=== PATIENT | male | born 1950 | race Caucasian/White ===

== ENCOUNTER → 2017-07-25 06:11 | Outpatient (CLI) | payer MEDICARE, SELFPAY ==
--- NOTE | 2017-07-25 06:14 | CA_ITS ---
PROCEDURE: 2-D M-mode and color Doppler study INDICATIONS FOR THE TEST: Chest pain + COPD Heart Murmur Tobacco Smoking Palpitations Fatigue+ Syncope Edema Hypertension+Diabetes Mellitus Rheumatic Fever SOB+BRYAN Obesity Hyperlipidemia+ Family History HD Additional History PATIENT INFORMATION HEIGHT:69 WEIGHT:184 GENDER: Male B/P:166/93 2-D/M-MODE INTERPRETATION: 2-D MEASUREMENTS OBSERVED VALUES IN CMS Right Ventricular Dimension (RVDd) 3.0 Interventricular Septum (Thickness)(IVsd) 1.3 Left Ventricular Internal Dimensions(LVIDd) 4.7 Left Ventricular Posterior Wall (Thickness)(LVPWd) 1.0 Aortic Root 2.9 Aortic Cusp Separation 1.9 Left Atrial Dimensions (LAD) 4.1 2D 1. Left atrium is mildly enlarged, left ventricle is normal size, mild concentric left ventricular hypertrophy, visually estimated ejection fraction 55% with no obvious regional wall motion abnormality. 2. The right atrium and right ventricle are mildly enlarged with normal contractility. 3. The aortic valve is minimally thickened and fibrosed. 4. The mitral and tricuspid valve are grossly normal. 5. The pulmonic valve is poorly visualized. 6. No significant pericardial effusion noted. DOPPLER INTERROGATION: Doppler interrogation of the aortic, mitral and tricuspid valvular presence of mild mitral and tricuspid regurgitation, tricuspid regurgitant jet velocity insufficient for calculation of the right ventricular systolic pressure, diastolic parameters are inconclusive. CONCLUSION: 1. Mild biatrial enlargement, normal left ventricular size, mild concentric left ventricular hypertrophy, visually estimated ejection fraction 55% with no obvious regional wall motion abnormality. Diastolic parameters are inconclusive. 2. Mildly enlarged right ventricle with normal contractility. 3. Mild mitral and tricuspid regurgitation 4. No significant pericardial effusion noted.
== END ==
PROVIDERS: Family Provider Nurse Practitioner Family; PCP Family Medicine; Visit Provider Internal Medicine
DX: R07.9 Chest pain, unspecified (principal); R06.09 Other forms of dyspnea; I20.9 Angina pectoris, unspecified; E78.2 Mixed hyperlipidemia; I10 Essential (primary) hypertension; Z82.49 Family history of ischemic heart disease and other diseases of the circulatory system
CPT/HCPCS: 93306

== ENCOUNTER → 2017-07-26 06:00 | Outpatient (CLI) | payer MEDICARE, SELFPAY ==
--- NOTE | 2017-07-26 | NM_ITS ---
History and Indications: Hypertension, hyperlipidemia, family history, chest pain and fatigue Procedure: Patient exercised on Cristo protocol 9 minutes, resting heart rate was 63 bpm resting blood pressure 170/80, with heart rate achieved was 126 beats per week was 83% of the maximum predicted heart rate and a blood pressure was 191/80. Test was started due to chest discomfort. Patient has good exercise capacity achieved 10.1mets of workload on treadmill, the blood pressure response to exercise was adequate, patient did not achieve the target heart. Electrocardiogram: Resting electrocardiogram showed sinus bradycardia, with exercise less than 1.[address] segment depression noted from the baseline EKG. The EKG portion of the exercise Myoview is nondiagnostic. As patient did not achieve the target heart rate. Cardiac stress and resting SPECT images: Cardiac stress and resting SPECT images were obtained using technetium 99 Myoview 29.5 mCi at stress and 9.3 mCi at rest, gated SPECT further analysis of segmental wall motion and calculation of the ejection fraction also done. Cardiac stress and rest images show a mild fixed defect in the inferior wall with normal contractility gated SPECT is likely secondary to soft tissue attenuation, no reversible ischemia seen, computer derived ejection fraction 60% with no abnormality, right ventricle is normal size and contractility. Conclusion: 1. The EKG portion of the exercise Myoview is nondiagnostic, as patient did not achieve the target heart rate. Patient has good exercise capacity achieved 10.1mets of workload on treadmill, the blood pressure response to exercise was adequate, test was stopped due to chest pain. 2. No obvious scintigraphic evidence of reversible ischemia seen, computer derived ejection fraction is 62% with no obvious regional wall motion abnormality. Right ventricle is normal size and contractility.
--- NOTE | 2017-07-26 08:56 | HMH.ITSHM ---
ATORVASTATIN TAMSULOSIN ASA OMPREAZOLE AMLODIPINE BISOPROLOL
== END ==
PROVIDERS: Family Provider Nurse Practitioner Family; PCP Family Medicine; Visit Provider Internal Medicine
DX: R07.9 Chest pain, unspecified (principal); E78.5 Hyperlipidemia, unspecified; R00.0 Tachycardia, unspecified
CPT/HCPCS: 78452; 93017; A9502

== ENCOUNTER → 2017-08-17 07:02 | Outpatient (CLI) | payer MEDICARE, SELFPAY ==
[2017-08-17 10:18] LABS: Alanine Aminotransferase 22 U/L (12-78); Albumin Level 3.8 gm/dL (3.4-5.0); Alkaline Phosphatase 96 U/L (46-116); Aspartate Amino Transferase 16 U/L (15-37); Bilirubin,Direct 0.1 mg/dL (0.0-0.2); Bilirubin,Indirect 0.5 mg/dL (0.0-0.9); Bilirubin,Total 0.6 mg/dL (0.2-1.0); Chol/HDL Ratio 3.2 (1-3.5); Cholesterol 161 mg/dL (140-200); HDL Cholesterol 51 mg/dL (27-67); LDL Cholesterol 100 mg/dL (0-130); Total Protein,Serum 7.1 gm/dL (6.4-8.2); Triglycerides 49 mg/dL (30-200); VLDL Cholesterol 10 mg/dL (0-40)
== END ==
PROVIDERS: Visit Provider Internal Medicine
DX: I25.10 Atherosclerotic heart disease of native coronary artery without angina pectoris (principal); E78.2 Mixed hyperlipidemia
CPT/HCPCS: 36415; 80061; 80076

== ENCOUNTER → 2017-10-26 07:11 | Outpatient (CLI) | payer MEDICARE, SELFPAY ==
[2017-10-26 09:05] LABS: Alanine Aminotransferase 22 U/L (12-78); Albumin Level 3.5 gm/dL (3.4-5.0); Alkaline Phosphatase 99 U/L (46-116); Aspartate Amino Transferase 11 U/L (15-37); Bilirubin,Direct 0.1 mg/dL (0.0-0.2); Bilirubin,Indirect 0.4 mg/dL (0.0-0.9); Bilirubin,Total 0.5 mg/dL (0.2-1.0); Chol/HDL Ratio 3.2 (1-3.5); Cholesterol 153 mg/dL (140-200); HDL Cholesterol 48 mg/dL (27-67); LDL Cholesterol 92 mg/dL (0-130); Total Protein,Serum 6.8 gm/dL (6.4-8.2); Triglycerides 65 mg/dL (30-200); VLDL Cholesterol 13 mg/dL (0-40)
== END ==
PROVIDERS: Visit Provider Physician Assistant
DX: E78.2 Mixed hyperlipidemia (principal)
CPT/HCPCS: 36415; 80061; 80076

== ENCOUNTER → 2018-02-18 07:20 | Outpatient (CLI) | payer MEDICARE, SELFPAY ==
[2018-02-18 08:19] LABS: Alanine Aminotransferase 41 U/L (12-78); Albumin Level 3.4 gm/dL (3.4-5.0); Alkaline Phosphatase 100 U/L (46-116); Aspartate Amino Transferase 21 U/L (15-37); Bilirubin,Direct 0.1 mg/dL (0.0-0.2); Bilirubin,Indirect 0.6 mg/dL (0.0-0.9); Bilirubin,Total 0.7 mg/dL (0.2-1.0); Cholesterol 159 mg/dL (140-200); HDL Cholesterol 53 mg/dL (27-67); LDL Cholesterol 92 mg/dL (0-130); Total Protein,Serum 6.8 gm/dL (6.4-8.2); Triglycerides 71 mg/dL (30-200); VLDL Cholesterol 14 mg/dL (0-40)
== END ==
PROVIDERS: Visit Provider Urology
DX: E78.2 Mixed hyperlipidemia (principal)
CPT/HCPCS: 36415; 80061; 80076

== ENCOUNTER → 2019-01-10 07:46 | Outpatient (CLI) | payer MEDICARE, SELFPAY ==
--- NOTE | 2019-01-10 07:49 | US_ITS ---
PROCEDURE: US LIVER CLINICAL INDICATION: ELEVATED LIVER ENZYMES COMPARISON: No exams were available for comparison FINDINGS: Pancreas: Unremarkable/Not well seen Liver: Unremarkable. There is appropriate direction of blood flow within a non dilated portal vein. Right kidney: The 3.5 x 3 cm right renal cyst. No hydronephrosis Gallbladder: No stones are evident. There is no gallbladder wall thickening. Common duct is normal in diameter. IMPRESSION: Unremarkable hepatic ultrasound. Right renal cyst Dictated by: Bernardo Banerjee MD 01/10/2019 18:59 Electronically signed by Bernardo Banerjee MD in [place] 01/10/2019 18:59
== END ==
PROVIDERS: PCP Family Medicine; Visit Provider Nurse Practitioner
DX: R74.8 Abnormal levels of other serum enzymes (principal)
CPT/HCPCS: 76705

== ENCOUNTER → 2020-01-13 08:16 | Outpatient (CLI) | payer MEDICARE, SELFPAY ==
--- NOTE | 2020-01-13 08:22 | US_ITS ---
PROCEDURE: US ABDOMEN LIMITED CLINICAL INDICATION: RENAL CYST COMPARISON: US US LIVER from 01/10/2019 FINDINGS: PANCREAS: Unremarkable. No obvious mass or abnormal fluid collection. No ductal dilatation LIVER: No focal liver lesions demonstrated. Homogeneous echogenicity. No intrahepatic biliary ductal dilatation evident. There is appropriate direction of blood flow within a non dilated portal vein RIGHT KIDNEY: There is a 3.7 x 2.7 cm right renal cyst containing a thin septation not significantly changed. GALLBLADDER: No gallstones, gallbladder wall thickening, pericholecystic fluid, or biliary dilatation. IMPRESSION: No significant change in the right renal cyst Otherwise negative right upper quadrant ultrasound Dictated by: Bernardo Banerjee MD 01/13/2020 10:22 Bernardo Banerjee MD in [place] 01/13/2020 10:22
== END ==
PROVIDERS: PCP Family Medicine; Visit Provider Nurse Practitioner
DX: N28.1 Cyst of kidney, acquired (principal)
CPT/HCPCS: 76705

== ENCOUNTER 2022-01-31 10:08 | Day surgery (SDC) | payer MEDICARE, SELFPAY ==
[2022-01-26 13:47] VITALS: BMI 25.4
[2022-01-31] VITALS (12 sets, daily range): BP systolic 105–160; BP diastolic 54–92; PULSE 53–74; RESP 14–16; TEMP 36.2–36.6; O2SAT 96–99
--- NOTE | 2022-01-31 10:51 | P.PN_ITS ---
[facility] Medical History Angina at rest History of chest pain Surgical History Hx of hemorrhoidectomy Family History Other Family history of myocardial infarction Social History Smoking Status: Never smoker alcohol intake: never substance use type: denies use current occupational status: retired Travel in the last 8 weeks: None housing: house caffeine: Yes [facility] Anesthesia Checklist Patient Identification Patient Identification: Arm Band Structural Data Admitted From: Home Planned Operative Procedure/s: colonoscopy Consent for Planned Operative Procedure(s) Verified: Yes Verified Documents: Surgical Consent and History and Physical NPO Status Verified Time NPO: 00:00 Additional verifications Anesthesia Reactions: No Airway Assessment C-Spine Mobility Assessed: Yes TMJ Mobility Assessed: Yes Dentition: Good Dentition Neurological Assessment Level of Consciousness: Awake and Alert Anesthesia Plan Anesthesia Risk discussed: Yes Anesthesia Plan: Verified ASA Class: II Anesthesia Type: MAC
--- NOTE | 2022-01-31 11:59 | XR_ITS ---
FINAL REPORT CLINICAL HISTORY: post op..abd pain FINDINGS: TWO-VIEW ABDOMEN There are multiple air-filled bowel loops in a nonspecific pattern, may represent an ileus. No abnormal calcification is identified. IMPRESSION: Findings may represent an ileus. Reviewed, Interpreted and Dictated by Richar Colmenares III, MD Transcribed by Charlotte Robledo Authenticated and [facility]
--- NOTE | 2022-01-31 12:13 | P.PCN_ITS ---
Procedure: Date: 01/31/22 Patient Date of :: 1950 Procedure Performed:: Colonoscopy with polypectomy Indications:: History of colon polyps Performing Provider:: Donald Viera MD Referring Provider:: . Sedation:: Monitored anesthesia care Procedure:: After informed consent was obtained the patient was taken to the endoscopy suite. Sedation ensued after the patient was transferred to the left lateral d ecubitus position. Pulse, blood pressure, and oxygen saturation were monitored throughout the procedure. Digital rectal exam revealed no significant abnormality. The colonoscope was placed in position. The entire colon was evaluated. The colonoscope was carefully removed and the patient was transferred to recovery in stable condition. Please see findings and specimens below for detail. Findings:: Hemorrhoidal tags Bowel preparation moderate to poor Severe lack of relaxation Pandiverticulosis Multiple complex polyps (see specimens) Specimens:: 9 mm sessile polyp and adjacent polyp along margin of the ileocecal valve (cold snare and cold biopsy forceps) Periappendiceal polyp (cold snare) Cluster of lobulated sessile polyps ranging from 5 mm to 9 mm throughout the proximal right colon (cold snare and cold biopsy forceps) Recommendations:: Timing of repeat colonoscopy is pending pathology but likely be between 3-6 months with extended bowel preparation secondary to limitations in visualization and size/nature/number of polyps. Consideration of consulting gastroenterology for his next colonoscopy will be discussed with the patient (secondary to possible need for evaluation for constipation and overall complex nature of his endoscopic evaluation). Complications:: No immediate Flat/upright films pending secondary to excision of multiple large complex polyps in the right colon Estimated blood obtained (mL): 1
== END 2022-01-31 14:05 | disposition home or self-care (01) ==
PROVIDERS: PCP Family Medicine; Visit Provider Surgery
PROC: 0DJD8ZZ Inspection of Lower Intestinal Tract, Via Natural or Artificial Opening Endoscopic (ICD-10-PCS; principal; 2022-01-31 11:30)
DX: Z12.11 Encounter for screening for malignant neoplasm of colon (principal); Z86.010 Personal history of colon polyps; K63.5 Polyp of colon; Z79.899 Other long term (current) drug therapy
CPT/HCPCS: 45380; 45385; 74019; 88305; J2704

== ENCOUNTER → 2022-04-10 10:23 | Outpatient (CLI) | payer MEDICARE, SELFPAY ==
[2022-04-10 10:34] LABS: Microscopic, Urine URINE MICROSCOPIC (MICROSCOPIC)
--- NOTE | 2022-04-10 10:44 | ECG_ITS ---
APPROVED REPORT Exam: Resting ECG HR:56 bpm ECG Measurements Heart Rate 56 AXES AL 192 P 51 QRSd 102 QRS 68 QT 423 T 51 QTc 415 Conclusion SINUS BRADYCARDIA BORDERLINE ECG UNCONFIRMED REPORT Electronically signed by : Vipul Durbin MD 04/10/2022 19:42:30
[2022-04-10 11:06] LABS: Appearance,Urine CLEAR (Clear); Bilirubin,Urine Negative (Negative); Blood, Urine Negative (Negative); Color,Urine YELLOW (Yellow); Glucose,Urine (UA) Negative (Negative); Ketones,Urine Negative (Negative); Leukocyte Esterase,Urine 1+ (Negative); Nitrate,Urine POSITIVE (Negative); PH,Urine 5.5 (5.0-8.5); Protein,Urine Negative (Negative); Specific Gravity, Urine >= 1.030 (1.005-1.030); Urobilinogen,Urine 0.2 EU/dl (0.2)
[2022-04-10 11:11] LABS: Bacteria,Urine 1+ /lpf; RBC,Urine Occasional #/hpf (0-3); Squamous Epithelial Cell,Urine Occasional #/hpf (0-5)
[2022-04-10 11:29] LABS: Basophils % 0.7 % (0.1-2.0); Eosinophils # 0.1 K/mm3 (0.0-0.4); Eosinophils % 1.6 % (0.1-12.0); Hematocrit 46.7 % (42.0-52.0); Hemoglobin 14.8 g/dL (14.1-18.0); Lymphocytes # 1.7 K/mm3 (0.7-4.5); Lymphocytes % 33.8 % (10-50); Mean Corpuscular HGB Conc 31.7 g/dL (31.8-35.4); Mean Corpuscular Hemoglobin 30.5 pg (27.0-31.2); Mean Corpuscular Volume 96.4 fl (80-94); Mean Platelet Volume 8.2 fl (7.4-10.4); Monocytes # 0.3 K/mm3 (0.1-1.0); Monocytes % 6.2 % (1.7-9.3); Neutrophils % 57.7 % (37.0-80.0); Platelet Count 178 K/mm3 (142-424); Red Blood Count 4.84 M/mm3 (4.60-6.20); Red Cell Distribution Width 14.1 % (11.5-17.5); White Blood Count 5.2 K/mm3 (4.8-10.8)
[2022-04-10 11:33] LABS: Chloride 106 mmol/L (98-107)
[2022-04-10 11:34] LABS: Potassium 4.4 mmoL/L (3.5-5.1)
[2022-04-10 11:36] LABS: Blood Urea Nitrogen 17 mg/dl (9-20); Estimated Glomerular Filt Rate 73 ml/min (>60); GFR (African American) 89 ML/MIN (>60)
[2022-04-10 11:37] LABS: Carbon Dioxide 27 mmol/L (22.0-30.0); Glucose 102 mg/dl (74-100)
[2022-04-10 12:31] LABS: Anion Gap 10.4 mEq/L (5-15); Sodium 139 mmol/L (136-145)
== END ==
PROVIDERS: PCP Family Medicine; Visit Provider Surgery
DX: K40.90 Unilateral inguinal hernia, without obstruction or gangrene, not specified as recurrent (principal); I10 Essential (primary) hypertension; Z01.818 Encounter for other preprocedural examination; R82.90 Unspecified abnormal findings in urine
CPT/HCPCS: 36415; 80048; 81001; 85025; 87086; 93005

== ENCOUNTER 2022-04-13 10:00 | Day surgery (SDC) | payer MEDICARE, SELFPAY ==
[2022-04-13] VITALS (10 sets, daily range): BP systolic 102–151; BP diastolic 39–89; PULSE 61–98; RESP 16–18; TEMP 36.1–43; O2SAT 93–98
--- NOTE | 2022-04-13 14:04 | P.PN_ITS ---
[facility] Disclaimer: The information contained in this section may have been updated after the patient was seen, as this information can be updated by other users. Medical History Angina at rest History of chest pain Surgical History History of colonoscopy Hx of hemorrhoidectomy Family History Other Family history of myocardial infarction Social History Smoking Status: Never smoker alcohol intake: never substance use type: denies use current occupational status: retired Travel in the last 8 weeks: None housing: house caffeine: Yes [facility] Anesthesia Checklist Patient Identification Patient Identification: Arm Band Structural Data Admitted From: Home Planned Operative Procedure/s: Right Open Inguinal Hernia Repair Consent for Planned Operative Procedure(s) Verified: Yes Verified Documents: Surgical Consent and History and Physical NPO Status Verified Time NPO: 00:00 Additional verifications Anesthesia Reactions: No Hx Blood Transfusions: No Blood Transfusion Reaction: No Airway Assessment C-Spine Mobility Assessed: Yes TMJ Mobility Assessed: Yes Dentition: Good Dentition Neurological Assessment Level of Consciousness: Awake and Alert Anesthesia Plan Anesthesia Risk discussed: Yes Anesthesia Plan: Verified ASA Class: II Anesthesia Type: General
--- NOTE | 2022-04-13 14:40 | EXP.OP.NOTE ---
Date of procedure: 04/13/22 Pre-op Diagnosis:: Right inguinal hernia Post-op Diagnosis:: Same Procedure performed:: Open right inguinal hernia repair Surgeon:: Donald Viear MD DRUG SAFETY COORDINATOR:: Aureliano Bahena Anesthesia: LMA Estimated blood loss (mL): 15 Operative findings:: Large complex indirect defect with significant incarcerated preperitoneal fat Operative note:: After informed consent was obtained the patient was taken to the operating room and placed in the supine position. General anesthesia with laryngeal mask airway was achieved. His lower abdomen and groin/scrotum were prepped and draped in a sterile fashion. After infiltration local anesthetic an oblique incision was made in the right groin. Electrocautery was utilized to transect through Allie's fascia to the level of the external aponeurosis. The external aponeurosis was sharply opened to the level of the external ring. The contents of the canal were carefully elevated. Significant incarcerated preperitoneal fat was noted. The preperitoneal fat/cord lipoma was transected free from surrounding tissue. The hernia sac was carefully elevated. The sac was opened distally to facilitate dissection. Once the hernia sac was freed from surrounding tissue the defect was reapproximated with running Vicryl suture. An extra-large PerFix plug was then secured in position with interrupted Ethibond. The PerFix overlay was then secured to the shelving edge inferiorly and the fascial margin superiorly with interrupted Ethibond. The external aponeurosis was reapproximated with running Vicryl suture. Allie's fascia was reapproximated in a similar manner. Skin was then closed with running 4-0 Monocryl. Dressings were applied and the patient was transferred to recovery in stable condition. Condition: stable Disposition: PACU Specimens:: none Complications:: No immediate
--- NOTE | 2022-04-13 14:47 | EXP.ANES.I ---
[facility] Anesthesia Record Part I Anesthesia Record I Intake, IV Amount: 1,200 Estimated blood loss (mL): 10 Urine output (mL): 150 Blood Products used (#): none Blood Pressure: 151/83 SaO2: 93 Pulse Rate: 95 Respiratory Rate: 16 Temperature: 99.2 F Patient is:: Drowsy and Stable Stable to PACU at:: 14:45
--- NOTE | 2022-04-13 19:01 | EXP.ANES.II ---
[facility] Anesthesia Record Part II Anesthesia Record Part II Discharge Time: 15:15 Destination: Surgical Day Care (OP Surgery) PACU nurse assessment reviewed?: Yes Patient Condition:: Good Anesthesia Complications:: None Swallowing reflex intact?: Yes Cyanosis?: No Blood Pressure: 125/77 Pulse Rate: 88 Temperature: 97.7 F Mental Status: Alert & Oriented Pain level:: 0 Nausea and/or vomitting:: None Intake, IV Amount: 0
== END 2022-04-13 16:15 | disposition home or self-care (01) ==
PROVIDERS: PCP Family Medicine; Visit Provider Surgery
DX: K40.30 Unilateral inguinal hernia, with obstruction, without gangrene, not specified as recurrent (principal); Z79.899 Other long term (current) drug therapy
CPT/HCPCS: 49507; 96374; J2405

== ENCOUNTER → 2022-11-14 10:14 | Outpatient (CLI) | payer MEDICARE, SELFPAY ==
[2022-11-14 11:13] LABS: Alanine Aminotransferase 111 U/L (12-78); Alkaline Phosphatase 101 U/L (38-126); Aspartate Amino Transferase 109 U/L (17-59); Bilirubin,Direct 0.3 mg/dl (0.0-0.4); Bilirubin,Indirect 0.5 mg/dL (0.0-0.9); Bilirubin,Total 0.8 mg/dl (0.2-1.3); Bilirubin,Unconjugated 0.5 mg/dL (0.0-1.1); Chol/HDL Ratio 4.9 (1-3.5); Cholesterol 188 mg/dl (140-200); HDL Cholesterol 38 mg/dl (40-60); Total Protein,Serum 8.6 g/dl (6.3-8.2); Triglycerides 139 mg/dl (30-150); VLDL Cholesterol 28 mg/dL (0-40)
[2022-11-14 11:25] LABS: Direct LDL Cholesterol 98.76 mg/dL (100-129)
== END ==
PROVIDERS: PCP Family Medicine; Visit Provider Nurse Practitioner
DX: E78.2 Mixed hyperlipidemia (principal); R74.01 Elevation of levels of liver transaminase levels
CPT/HCPCS: 36415; 80061; 80076

== ENCOUNTER → 2022-12-19 07:20 | Outpatient (CLI) | payer MEDICARE, SELFPAY ==
[2022-12-19 08:04] LABS: Alanine Aminotransferase 100 U/L (12-78); Bilirubin,Unconjugated 0.8 mg/dL (0.0-1.1)
[2022-12-19 08:05] LABS: Albumin Level 4.2 g/dl (3.5-5.0); Alkaline Phosphatase 83 U/L (38-126); Aspartate Amino Transferase 109 U/L (17-59); Bilirubin,Direct 0.4 mg/dl (0.0-0.4); Bilirubin,Indirect 0.8 mg/dL (0.0-0.9); Bilirubin,Total 1.2 mg/dl (0.2-1.3); Total Protein,Serum 8.9 g/dl (6.3-8.2)
== END ==
PROVIDERS: PCP Family Medicine; Visit Provider Nurse Practitioner
DX: R74.8 Abnormal levels of other serum enzymes (principal)
CPT/HCPCS: 36415; 80076

== ENCOUNTER → 2023-02-19 07:07 | Outpatient (CLI) | payer MEDICARE, SELFPAY ==
[2023-02-19 09:00] LABS: Chol/HDL Ratio 4.8 (1-3.5); Cholesterol 178 mg/dl (140-200); HDL Cholesterol 37 mg/dl (40-60); Triglycerides 93 mg/dl (30-150); VLDL Cholesterol 19 mg/dL (0-40)
[2023-02-19 09:11] LABS: Direct LDL Cholesterol 100.37 mg/dL (100-129)
[2023-02-19 09:28] LABS: Alanine Aminotransferase 118 U/L (12-78); Aspartate Amino Transferase 129 U/L (17-59); Bilirubin,Unconjugated 0.7 mg/dL (0.0-1.1)
[2023-02-19 09:29] LABS: Albumin Level 4.2 g/dl (3.5-5.0); Alkaline Phosphatase 93 U/L (38-126); Bilirubin,Direct 0.2 mg/dl (0.0-0.4); Bilirubin,Indirect 0.7 mg/dL (0.0-0.9); Bilirubin,Total 0.9 mg/dl (0.2-1.3); Total Protein,Serum 8.4 g/dl (6.3-8.2)
== END ==
PROVIDERS: Nurse Practitioner Family; PCP Family Medicine; Visit Provider Internal Medicine
DX: I10 Essential (primary) hypertension (principal); R74.8 Abnormal levels of other serum enzymes
CPT/HCPCS: 36415; 80061; 80076

== ENCOUNTER 2023-08-20 07:30 | Outpatient (CLI) | payer MEDICARE, SELFPAY ==
[2023-08-20 09:06] LABS: Alanine Aminotransferase 86 U/L (12-78); Albumin Level 4.1 g/dl (3.5-5.0); Alkaline Phosphatase 81 U/L (38-126); Aspartate Amino Transferase 90 U/L (17-59); Bilirubin,Indirect 0.7 mg/dL (0.0-0.9); Bilirubin,Total 0.7 mg/dl (0.2-1.3); Bilirubin,Unconjugated 0.7 mg/dL (0.0-1.1); Chol/HDL Ratio 4.4 (1-3.5); Cholesterol 181 mg/dl (140-200); HDL Cholesterol 41 mg/dl (40-60); Total Protein,Serum 8.6 g/dl (6.3-8.2); Triglycerides 113 mg/dl (30-150); VLDL Cholesterol 23 mg/dL (0-40)
[2023-08-20 09:17] LABS: Direct LDL Cholesterol 98.94 mg/dL (100-129)
== END 2023-08-20 23:59 | disposition home or self-care (01) ==
LOC: LAB 07:31
PROVIDERS: PCP Family Medicine; Visit Provider Nurse Practitioner Family
DX: I25.10 Atherosclerotic heart disease of native coronary artery without angina pectoris (principal); R74.8 Abnormal levels of other serum enzymes; E78.2 Mixed hyperlipidemia
CPT/HCPCS: 36415; 80061; 80076

== ENCOUNTER 2024-01-24 08:32 | Outpatient (CLI) | payer MEDICARE, SELFPAY ==
--- NOTE | 2024-01-24 08:35 | US_ITS ---
FINAL REPORT CLINICAL HISTORY: BORDERLINE CIRRHOSIS COMPARISON: None FINDINGS: Sonographic images of the right upper quadrant were obtained. The pancreas is partially obscured. There is a coarse hepatic echotexture consistent with cirrhosis. The gallbladder appears normal without evidence of gallstones.There is no evidence of biliary ductal dilatation.The common duct measures 4mm. The right kidney measures 8.3 cm. There is a septated cystic mass in the right kidney measuring 4.4 cm favored to represent a mildly complicated cyst. IMPRESSION: Coarsened hepatic echotexture consistent with cirrhosis. Probable mildly complicated cyst right kidney. Recommend follow-up ultrasound or renal mass protocol CT in 6 months. Reviewed, Interpreted and Dictated by Richar Colmenares III, MD Transcribed by Teresa Song Authenticated and [facility]
== END 2024-01-24 23:59 | disposition home or self-care (01) ==
LOC: RAD 08:33
PROVIDERS: PCP Family Medicine; Visit Provider Internal Medicine Gastroenterology
DX: K74.60 Unspecified cirrhosis of liver (principal)
CPT/HCPCS: 76705

== ENCOUNTER 2024-02-01 07:16 | Outpatient (CLI) | payer MEDICARE, SELFPAY ==
[2024-02-01 08:23] LABS: Basophils % 0.5 % (0.1-2.0); Eosinophils % 0.6 % (0.1-12.0); Hematocrit 44.4 % (42.0-52.0); Hemoglobin 14.9 g/dL (14.1-18.0); Lymphocytes # 2.8 K/mm3 (0.7-4.5); Lymphocytes % 44.4 % (10-50); Mean Corpuscular HGB Conc 33.4 g/dL (31.8-35.4); Mean Corpuscular Hemoglobin 31.8 pg (27.0-31.2); Mean Corpuscular Volume 95.1 fl (80-94); Mean Platelet Volume 7.8 fl (7.4-10.4); Monocytes # 0.3 K/mm3 (0.1-1.0); Monocytes % 5.3 % (1.7-9.3); Neutrophils # 3.1 K/mm3 (1.8-7.8); Neutrophils % 49.2 % (37.0-80.0); Platelet Count 127 K/mm3 (142-424); Red Blood Count 4.67 M/mm3 (4.60-6.20); Red Cell Distribution Width 14.8 % (11.5-17.5); White Blood Count 6.2 K/mm3 (4.8-10.8)
[2024-02-01 08:26] LABS: Albumin Level 4.3 g/dl (3.5-5.0); Chloride 104 mmol/L (98-107); Sodium 140 mmol/L (136-145)
[2024-02-01 08:29] LABS: Alanine Aminotransferase 55 U/L (12-78); Alkaline Phosphatase 60 U/L (38-126); Aspartate Amino Transferase 40 U/L (17-59); Bilirubin,Total 0.8 mg/dl (0.2-1.3); Blood Urea Nitrogen 25 mg/dl (9-20); Carbon Dioxide 29 mmol/L (22.0-30.0); Estimated Glomerular Filt Rate 65 ml/min (>60); GFR (African American) 79 ML/MIN (>60); Globulin 4.1 g/dL (1.3-3.2); Total Protein,Serum 8.4 g/dl (6.3-8.2)
[2024-02-01 08:30] LABS: Calcium 9.9 mg/dl (8.4-10.2); Glucose 91 mg/dl (74-100)
[2024-02-02 09:24] LABS: Immunoglobulin A, Qn 171 mg/dL (61-437); Immunoglobulin G, Qn 2318 mg/dL (603-1613); Immunoglobulin M, Qn 251 mg/dL (15-143)
[2024-02-10 13:08] LABS: TPMT Activity 24.6 (.)
== END 2024-02-01 23:59 | disposition home or self-care (01) ==
LOC: LAB 07:17
PROVIDERS: PCP Family Medicine; Visit Provider Internal Medicine Gastroenterology
DX: K74.60 Unspecified cirrhosis of liver (principal)
CPT/HCPCS: 36415; 80053; 82657; 82784; 85025

== ENCOUNTER 2024-02-08 07:10 | Outpatient (CLI) | payer MEDICARE, SELFPAY ==
[2024-02-08 07:37] LABS: Basophils % 0.5 % (0.1-2.0); Eosinophils # 0.1 K/mm3 (0.0-0.4); Eosinophils % 0.7 % (0.1-12.0); Hematocrit 45.4 % (42.0-52.0); Hemoglobin 15.5 g/dL (14.1-18.0); Lymphocytes # 3.2 K/mm3 (0.7-4.5); Lymphocytes % 35.2 % (10-50); Mean Corpuscular HGB Conc 34.1 g/dL (31.8-35.4); Mean Corpuscular Hemoglobin 32.3 pg (27.0-31.2); Mean Corpuscular Volume 94.6 fl (80-94); Mean Platelet Volume 7.6 fl (7.4-10.4); Monocytes # 0.4 K/mm3 (0.1-1.0); Monocytes % 4.7 % (1.7-9.3); Neutrophils # 5.4 K/mm3 (1.8-7.8); Neutrophils % 58.9 % (37.0-80.0); Platelet Count 155 K/mm3 (142-424); Red Blood Count 4.79 M/mm3 (4.60-6.20); Red Cell Distribution Width 14.9 % (11.5-17.5); White Blood Count 9.2 K/mm3 (4.8-10.8)
[2024-02-08 07:51] LABS: Alanine Aminotransferase 51 U/L (12-78); Albumin Level 4.3 g/dl (3.5-5.0); Albumin/Globulin Ratio 1.2 (1.1-1.8); Alkaline Phosphatase 63 U/L (38-126); Anion Gap 8.9 mEq/L (5-15); Aspartate Amino Transferase 37 U/L (17-59); Bilirubin,Total 0.8 mg/dl (0.2-1.3); Blood Urea Nitrogen 23 mg/dl (9-20); Calcium 9.7 mg/dl (8.4-10.2); Carbon Dioxide 32 mmol/L (22.0-30.0); Chloride 103 mmol/L (98-107); Estimated Glomerular Filt Rate 65 ml/min (>60); GFR (African American) 79 ML/MIN (>60); Globulin 3.6 g/dL (1.3-3.2); Glucose 92 mg/dl (74-100); Potassium 3.9 mmoL/L (3.5-5.1); Sodium 140 mmol/L (136-145); Total Protein,Serum 7.9 g/dl (6.3-8.2)
[2024-02-09 08:28] LABS: Immunoglobulin A, Qn 167 mg/dL (61-437); Immunoglobulin G, Qn 2235 mg/dL (603-1613); Immunoglobulin M, Qn 272 mg/dL (15-143)
[2024-02-15 03:38] LABS: 6-MMPN < 141 (.); 6-TGN < 28 (.)
== END 2024-02-08 23:59 | disposition home or self-care (01) ==
LOC: LAB 07:11
PROVIDERS: PCP Family Medicine; Visit Provider Internal Medicine Gastroenterology
DX: K74.60 Unspecified cirrhosis of liver (principal)
CPT/HCPCS: 36415; 80053; 80299; 82657; 82784; 85025

== ENCOUNTER 2024-02-11 13:57 | Outpatient (CLI) | payer MEDICARE, SELFPAY | END 2024-02-11 23:59 | disposition home or self-care (01) | LOC: LAB 13:58 | PROVIDERS: PCP Family Medicine; Visit Provider Internal Medicine Gastroenterology | DX: Z02.9 Encounter for administrative examinations, unspecified (principal) ==

== ENCOUNTER 2024-02-22 07:14 | Outpatient (CLI) | payer MEDICARE, SELFPAY ==
[2024-02-22 07:39] LABS: Basophils % 0.4 % (0.1-2.0); Eosinophils # 0.1 K/mm3 (0.0-0.4); Eosinophils % 0.6 % (0.1-12.0); Hematocrit 43.8 % (42.0-52.0); Hemoglobin 14.6 g/dL (14.1-18.0); Lymphocytes # 3.1 K/mm3 (0.7-4.5); Lymphocytes % 42.3 % (10-50); Mean Corpuscular HGB Conc 33.3 g/dL (31.8-35.4); Mean Corpuscular Volume 96.2 fl (80-94); Mean Platelet Volume 7.7 fl (7.4-10.4); Monocytes # 0.3 K/mm3 (0.1-1.0); Monocytes % 4.2 % (1.7-9.3); Neutrophils # 3.8 K/mm3 (1.8-7.8); Neutrophils % 52.4 % (37.0-80.0); Platelet Count 113 K/mm3 (142-424); Red Blood Count 4.56 M/mm3 (4.60-6.20); White Blood Count 7.3 K/mm3 (4.8-10.8)
[2024-02-22 08:55] LABS: Chloride 106 mmol/L (98-107)
[2024-02-22 08:56] LABS: Albumin Level 3.9 g/dl (3.5-5.0); Sodium 139 mmol/L (136-145)
[2024-02-22 08:58] LABS: Blood Urea Nitrogen 24 mg/dl (9-20); Estimated Glomerular Filt Rate 65 ml/min (>60); GFR (African American) 79 ML/MIN (>60)
[2024-02-22 08:59] LABS: Alanine Aminotransferase 47 U/L (12-78); Albumin/Globulin Ratio 1.3 (1.1-1.8); Alkaline Phosphatase 52 U/L (38-126); Aspartate Amino Transferase 37 U/L (17-59); Bilirubin,Total 0.8 mg/dl (0.2-1.3); Calcium 9.2 mg/dl (8.4-10.2); Carbon Dioxide 32 mmol/L (22.0-30.0); Globulin 2.9 g/dL (1.3-3.2); Glucose 72 mg/dl (74-100); Total Protein,Serum 6.8 g/dl (6.3-8.2)
[2024-02-23 09:14] LABS: Immunoglobulin A, Qn 149 mg/dL (61-437); Immunoglobulin G, Qn 1677 mg/dL (603-1613); Immunoglobulin M, Qn 247 mg/dL (15-143)
[2024-02-27 03:37] LABS: 6-MMPN < 178 (.); 6-TGN < 36 (.)
== END 2024-02-22 23:59 | disposition home or self-care (01) ==
PROVIDERS: PCP Family Medicine; Visit Provider Internal Medicine Gastroenterology
DX: K74.60 Unspecified cirrhosis of liver (principal)
CPT/HCPCS: 36415; 80053; 80299; 82784; 85025

== ENCOUNTER 2024-03-07 07:15 | Outpatient (CLI) | payer MEDICARE, SELFPAY ==
[2024-03-07 07:58] LABS: Basophils % 0.3 % (0.1-2.0); Eosinophils % 0.5 % (0.1-12.0); Hematocrit 44.3 % (42.0-52.0); Hemoglobin 14.7 g/dL (14.1-18.0); Lymphocytes # 3.3 K/mm3 (0.7-4.5); Lymphocytes % 50.5 % (10-50); Mean Corpuscular HGB Conc 33.2 g/dL (31.8-35.4); Mean Corpuscular Hemoglobin 31.3 pg (27.0-31.2); Mean Corpuscular Volume 94.3 fl (80-94); Mean Platelet Volume 9.7 fl (7.4-10.4); Monocytes # 0.3 K/mm3 (0.1-1.0); Monocytes % 4.2 % (1.7-9.3); Neutrophils # 2.9 K/mm3 (1.8-7.8); Neutrophils % 44.2 % (37.0-80.0); Platelet Count 124 K/mm3 (142-424); White Blood Count 6.6 K/mm3 (4.8-10.8)
[2024-03-07 08:01] LABS: MANUAL DIFFERENTIAL MANUAL DIFFERENTIAL (MANUAL DIFF)
[2024-03-07 08:03] LABS: INR 1.05 (0.9-1.1); Prothrombin Time 11.7 seconds (10.1-12.5)
[2024-03-07 08:46] LABS: Alanine Aminotransferase 48 U/L (12-78); Albumin/Globulin Ratio 1.4 (1.1-1.8); Alkaline Phosphatase 52 U/L (38-126); Anion Gap 7.2 mEq/L (5-15); Aspartate Amino Transferase 37 U/L (17-59); Bilirubin,Total 0.9 mg/dl (0.2-1.3); Blood Urea Nitrogen 24 mg/dl (9-20); Carbon Dioxide 33 mmol/L (22.0-30.0); Chloride 102 mmol/L (98-107); Estimated Glomerular Filt Rate 65 ml/min (>60); GFR (African American) 79 ML/MIN (>60); Globulin 2.9 g/dL (1.3-3.2); Glucose 85 mg/dl (74-100); Potassium 4.2 mmoL/L (3.5-5.1); Sodium 138 mmol/L (136-145); Total Protein,Serum 6.9 g/dl (6.3-8.2)
[2024-03-07 09:22] LABS: Lymphocytes % 62 % (10-50); Monocytes % 2 % (2-9); Neutrophils % 36 % (42-76); Total Cells Counted 100
[2024-03-07 09:23] LABS: Platelet Estimate Slight Decrease; RBC Morphology Normal
[2024-03-08 08:10] LABS: Immunoglobulin G, Qn 1471 mg/dL (603-1613)
== END 2024-03-07 23:59 | disposition home or self-care (01) ==
LOC: LAB 07:16
PROVIDERS: PCP Family Medicine; Visit Provider Internal Medicine Gastroenterology
DX: K75.4 Autoimmune hepatitis (principal)
CPT/HCPCS: 36415; 80053; 82784; 85007; 85025; 85027; 85610

== ENCOUNTER 2024-03-21 07:28 | Outpatient (CLI) | payer MEDICARE, SELFPAY ==
[2024-03-21 07:46] LABS: Basophils % 0.2 % (0.1-2.0); Eosinophils # 0.1 K/mm3 (0.0-0.4); Eosinophils % 1.1 % (0.1-12.0); Hematocrit 42.4 % (42.0-52.0); Hemoglobin 14.3 g/dL (14.1-18.0); Lymphocytes # 1.6 K/mm3 (0.7-4.5); Lymphocytes % 34.3 % (10-50); Mean Corpuscular HGB Conc 33.7 g/dL (31.8-35.4); Mean Corpuscular Hemoglobin 31.8 pg (27.0-31.2); Mean Corpuscular Volume 94.4 fl (80-94); Mean Platelet Volume 9.2 fl (7.4-10.4); Monocytes # 0.3 K/mm3 (0.1-1.0); Monocytes % 5.9 % (1.7-9.3); Neutrophils # 2.7 K/mm3 (1.8-7.8); Neutrophils % 58.1 % (37.0-80.0); Platelet Count 98 K/mm3 (142-424); Red Blood Count 4.49 M/mm3 (4.60-6.20); Red Cell Distribution Width 14.9 % (11.5-17.5); White Blood Count 4.6 K/mm3 (4.8-10.8)
[2024-03-21 08:19] LABS: Alanine Aminotransferase 44 U/L (12-78); Albumin/Globulin Ratio 1.4 (1.1-1.8); Alkaline Phosphatase 53 U/L (38-126); Anion Gap 7.9 mEq/L (5-15); Aspartate Amino Transferase 44 U/L (17-59); Bilirubin,Total 0.6 mg/dl (0.2-1.3); Blood Urea Nitrogen 21 mg/dl (9-20); Calcium 9.7 mg/dl (8.4-10.2); Carbon Dioxide 30 mmol/L (22.0-30.0); Chloride 104 mmol/L (98-107); Estimated Glomerular Filt Rate 73 ml/min (>60); GFR (African American) 88 ML/MIN (>60); Globulin 2.9 g/dL (1.3-3.2); Glucose 90 mg/dl (74-100); Potassium 3.9 mmoL/L (3.5-5.1); Sodium 138 mmol/L (136-145); Total Protein,Serum 6.9 g/dl (6.3-8.2)
[2024-03-21 08:20] LABS: Alanine Aminotransferase 44 U/L (12-78); Albumin Level 4.1 g/dl (3.5-5.0); Alkaline Phosphatase 53 U/L (38-126); Aspartate Amino Transferase 42 U/L (17-59); Bilirubin,Direct 0.1 mg/dl (0.0-0.4); Bilirubin,Indirect 0.6 mg/dL (0.0-0.9); Bilirubin,Total 0.7 mg/dl (0.2-1.3); Bilirubin,Unconjugated 0.6 mg/dL (0.0-1.1); Chol/HDL Ratio 2.6 (1-3.5); Cholesterol 182 mg/dl (140-200); HDL Cholesterol 70 mg/dl (40-60); Total Protein,Serum 6.9 g/dl (6.3-8.2); Triglycerides 83 mg/dl (30-150); VLDL Cholesterol 17 mg/dL (0-40)
[2024-03-21 08:31] LABS: Direct LDL Cholesterol 89.31 mg/dL (100-129)
[2024-03-21 08:36] LABS: Free T4 (Free Thyroxine) 0.63 ng/dl (0.78-2.19); INR 1.03 (0.9-1.1); Prothrombin Time 11.3 seconds (9.2-12.1)
[2024-03-21 08:51] LABS: Thyroid Stimulating Hormone 8.56 uIU/mL (0.465-4.68)
[2024-03-22 09:10] LABS: Immunoglobulin G, Qn 1312 mg/dL (603-1613)
== END 2024-03-21 23:59 | disposition home or self-care (01) ==
LOC: LAB 07:29
PROVIDERS: Physician Assistant; PCP Family Medicine; Visit Provider Internal Medicine Gastroenterology
DX: I25.10 Atherosclerotic heart disease of native coronary artery without angina pectoris (principal); R74.8 Abnormal levels of other serum enzymes; E78.2 Mixed hyperlipidemia; I10 Essential (primary) hypertension; R06.00 Dyspnea, unspecified; I11.9 Hypertensive heart disease without heart failure; K75.4 Autoimmune hepatitis
CPT/HCPCS: 36415; 80053; 80061; 80076; 82784; 84439; 84443; 85025; 85610

== ENCOUNTER 2024-04-04 07:21 | Outpatient (CLI) | payer MEDICARE, SELFPAY ==
[2024-04-04 08:45] LABS: Anion Gap 9.9 mEq/L (5-15); Blood Urea Nitrogen 20 mg/dl (9-20); Calcium 9.2 mg/dl (8.4-10.2); Carbon Dioxide 30 mmol/L (22.0-30.0); Chloride 103 mmol/L (98-107); Estimated Glomerular Filt Rate 73 ml/min (>60); GFR (African American) 88 ML/MIN (>60); Glucose 96 mg/dl (74-100); Potassium 3.9 mmoL/L (3.5-5.1); Sodium 139 mmol/L (136-145)
== END 2024-04-04 23:59 | disposition home or self-care (01) ==
LOC: LAB 07:23
PROVIDERS: Physician Assistant; PCP Family Medicine; Visit Provider Internal Medicine Gastroenterology
DX: R74.8 Abnormal levels of other serum enzymes (principal); E78.2 Mixed hyperlipidemia; I10 Essential (primary) hypertension; I25.10 Atherosclerotic heart disease of native coronary artery without angina pectoris; R06.00 Dyspnea, unspecified; I11.9 Hypertensive heart disease without heart failure
CPT/HCPCS: 36415; 80048

== ENCOUNTER 2024-04-18 07:17 | Outpatient (CLI) | payer MEDICARE, SELFPAY ==
[2024-04-18 07:43] LABS: Basophils % 0.4 % (0.1-2.0); Eosinophils # 0.1 K/mm3 (0.0-0.4); Eosinophils % 1.1 % (0.1-12.0); Hematocrit 42.5 % (42.0-52.0); Hemoglobin 14.1 g/dL (14.1-18.0); Lymphocytes % 35.3 % (10-50); Mean Corpuscular HGB Conc 33.2 g/dL (31.8-35.4); Mean Corpuscular Hemoglobin 31.5 pg (27.0-31.2); Mean Corpuscular Volume 95.1 fl (80-94); Mean Platelet Volume 9.4 fl (7.4-10.4); Monocytes # 0.3 K/mm3 (0.1-1.0); Monocytes % 5.9 % (1.7-9.3); Neutrophils # 3.2 K/mm3 (1.8-7.8); Neutrophils % 56.8 % (37.0-80.0); Platelet Count 134 K/mm3 (142-424); Red Blood Count 4.47 M/mm3 (4.60-6.20); Red Cell Distribution Width 15.1 % (11.5-17.5); White Blood Count 5.6 K/mm3 (4.8-10.8)
[2024-04-18 07:57] LABS: INR 1.03 (0.9-1.1); Prothrombin Time 11.3 seconds (9.2-12.1)
[2024-04-18 08:35] LABS: Albumin Level 4.1 g/dl (3.5-5.0); Chloride 103 mmol/L (98-107); Sodium 140 mmol/L (136-145)
[2024-04-18 08:38] LABS: Alanine Aminotransferase 46 U/L (12-78); Albumin/Globulin Ratio 1.6 (1.1-1.8); Alkaline Phosphatase 55 U/L (38-126); Aspartate Amino Transferase 42 U/L (17-59); Bilirubin,Total 0.7 mg/dl (0.2-1.3); Blood Urea Nitrogen 20 mg/dl (9-20); Carbon Dioxide 32 mmol/L (22.0-30.0); Estimated Glomerular Filt Rate 82 ml/min (>60); GFR (African American) 100 ML/MIN (>60); Globulin 2.6 g/dL (1.3-3.2); Total Protein,Serum 6.7 g/dl (6.3-8.2)
[2024-04-18 08:39] LABS: Calcium 9.6 mg/dl (8.4-10.2); Glucose 98 mg/dl (74-100)
[2024-04-19 09:49] LABS: Immunoglobulin A, Qn 137 mg/dL (61-437); Immunoglobulin G, Qn 1208 mg/dL (603-1613); Immunoglobulin M, Qn 222 mg/dL (15-143)
== END 2024-04-18 23:59 | disposition home or self-care (01) ==
PROVIDERS: PCP Family Medicine; Visit Provider Internal Medicine Gastroenterology
DX: K74.60 Unspecified cirrhosis of liver (principal); K75.4 Autoimmune hepatitis
CPT/HCPCS: 36415; 80053; 82784; 85025; 85610

== ENCOUNTER 2024-05-02 07:15 | Outpatient (CLI) | payer MEDICARE, SELFPAY ==
[2024-05-02 07:39] LABS: Basophils % 0.5 % (0.1-2.0); Eosinophils # 0.1 K/mm3 (0.0-0.4); Eosinophils % 1.5 % (0.1-12.0); Hematocrit 42.4 % (42.0-52.0); Hemoglobin 14.1 g/dL (14.1-18.0); Lymphocytes # 1.9 K/mm3 (0.7-4.5); Mean Corpuscular HGB Conc 33.3 g/dL (31.8-35.4); Mean Corpuscular Hemoglobin 31.8 pg (27.0-31.2); Mean Corpuscular Volume 95.7 fl (80-94); Mean Platelet Volume 9.4 fl (7.4-10.4); Monocytes # 0.4 K/mm3 (0.1-1.0); Monocytes % 6.8 % (1.7-9.3); Neutrophils # 3.5 K/mm3 (1.8-7.8); Neutrophils % 58.7 % (37.0-80.0); Platelet Count 132 K/mm3 (142-424); Red Blood Count 4.43 M/mm3 (4.60-6.20); Red Cell Distribution Width 14.8 % (11.5-17.5); White Blood Count 5.9 K/mm3 (4.8-10.8)
[2024-05-02 08:04] LABS: Albumin Level 4.2 g/dl (3.5-5.0); Chloride 105 mmol/L (98-107); Potassium 3.9 mmoL/L (3.5-5.1); Sodium 140 mmol/L (136-145)
[2024-05-02 08:07] LABS: Alanine Aminotransferase 41 U/L (12-78); Albumin/Globulin Ratio 1.6 (1.1-1.8); Alkaline Phosphatase 52 U/L (38-126); Anion Gap 7.9 mEq/L (5-15); Aspartate Amino Transferase 40 U/L (17-59); Blood Urea Nitrogen 18 mg/dl (9-20); Calcium 9.5 mg/dl (8.4-10.2); Carbon Dioxide 31 mmol/L (22.0-30.0); Estimated Glomerular Filt Rate 73 ml/min (>60); GFR (African American) 88 ML/MIN (>60); Globulin 2.7 g/dL (1.3-3.2); Glucose 100 mg/dl (74-100); Total Protein,Serum 6.9 g/dl (6.3-8.2)
[2024-05-03 06:10] LABS: Immunoglobulin G, Qn 1184 mg/dL (603-1613)
== END 2024-05-02 23:59 | disposition home or self-care (01) ==
LOC: LAB 07:16
PROVIDERS: PCP Family Medicine; Visit Provider Internal Medicine Gastroenterology
DX: K75.4 Autoimmune hepatitis (principal)
CPT/HCPCS: 36415; 80053; 82784; 85025

== ENCOUNTER 2024-05-15 07:22 | Outpatient (CLI) | payer MEDICARE, SELFPAY ==
[2024-05-15 07:50] LABS: Basophils % 0.6 % (0.1-2.0); Eosinophils # 0.1 K/mm3 (0.0-0.4); Eosinophils % 1.4 % (0.1-12.0); Hematocrit 41.3 % (42.0-52.0); Lymphocytes # 1.7 K/mm3 (0.7-4.5); Lymphocytes % 33.3 % (10-50); Mean Corpuscular HGB Conc 33.9 g/dL (31.8-35.4); Mean Corpuscular Hemoglobin 32.6 pg (27.0-31.2); Mean Platelet Volume 9.9 fl (7.4-10.4); Monocytes # 0.4 K/mm3 (0.1-1.0); Monocytes % 7.8 % (1.7-9.3); Neutrophils # 2.9 K/mm3 (1.8-7.8); Neutrophils % 56.7 % (37.0-80.0); Platelet Count 136 K/mm3 (142-424); Red Cell Distribution Width 14.1 % (11.5-17.5)
[2024-05-15 08:12] LABS: Alanine Aminotransferase 36 U/L (12-78); Albumin Level 4.2 g/dl (3.5-5.0); Albumin/Globulin Ratio 1.8 (1.1-1.8); Alkaline Phosphatase 53 U/L (38-126); Anion Gap 10.9 mEq/L (5-15); Aspartate Amino Transferase 39 U/L (17-59); Bilirubin,Total 1.1 mg/dl (0.2-1.3); Blood Urea Nitrogen 18 mg/dl (9-20); Calcium 9.4 mg/dl (8.4-10.2); Carbon Dioxide 30 mmol/L (22.0-30.0); Chloride 103 mmol/L (98-107); Estimated Glomerular Filt Rate 73 ml/min (>60); GFR (African American) 88 ML/MIN (>60); Globulin 2.3 g/dL (1.3-3.2); Glucose 102 mg/dl (74-100); Lipase 153 U/L (23-300); Potassium 3.9 mmoL/L (3.5-5.1); Sodium 140 mmol/L (136-145); Total Protein,Serum 6.5 g/dl (6.3-8.2)
[2024-05-16 12:18] LABS: Immunoglobulin G, Qn 1154 mg/dL (603-1613)
== END 2024-05-15 23:59 | disposition home or self-care (01) ==
LOC: LAB 07:23
PROVIDERS: PCP Family Medicine; Visit Provider Internal Medicine Gastroenterology
DX: K75.4 Autoimmune hepatitis (principal); R11.2 Nausea with vomiting, unspecified
CPT/HCPCS: 36415; 80053; 82784; 83690; 85025

== ENCOUNTER 2024-05-29 07:16 | Outpatient (CLI) | payer MEDICARE, SELFPAY ==
[2024-05-29 07:24] LABS: MANUAL DIFFERENTIAL MANUAL DIFFERENTIAL (MANUAL DIFF)
[2024-05-29 07:37] LABS: Basophils % 0.3 % (0.1-2.0); Eosinophils # 0.1 K/mm3 (0.0-0.4); Eosinophils % 1.3 % (0.1-12.0); Hematocrit 42.9 % (42.0-52.0); Hemoglobin 14.5 g/dL (14.1-18.0); Lymphocytes # 2.4 K/mm3 (0.7-4.5); Lymphocytes % 38.7 % (10-50); Mean Corpuscular HGB Conc 33.8 g/dL (31.8-35.4); Mean Corpuscular Hemoglobin 32.6 pg (27.0-31.2); Mean Corpuscular Volume 96.4 fl (80-94); Mean Platelet Volume 9.9 fl (7.4-10.4); Monocytes # 0.5 K/mm3 (0.1-1.0); Monocytes % 7.3 % (1.7-9.3); Neutrophils # 3.3 K/mm3 (1.8-7.8); Neutrophils % 52.1 % (37.0-80.0); Platelet Count 157 K/mm3 (142-424); Red Blood Count 4.45 M/mm3 (4.60-6.20); Red Cell Distribution Width 13.1 % (11.5-17.5); White Blood Count 6.3 K/mm3 (4.8-10.8)
[2024-05-29 08:45] LABS: Albumin Level 4.4 g/dl (3.5-5.0); Chloride 106 mmol/L (98-107); Eosinophils % 2 % (0-3); Lymphocytes % 36 % (10-50); Monocytes % 4 % (2-9); Neutrophils % 58 % (42-76); Platelet Estimate Normal; Potassium 4.1 mmoL/L (3.5-5.1); RBC Morphology Normal; Sodium 139 mmol/L (136-145); Total Cells Counted 100
[2024-05-29 08:48] LABS: Alanine Aminotransferase 31 U/L (12-78); Albumin/Globulin Ratio 1.9 (1.1-1.8); Alkaline Phosphatase 53 U/L (38-126); Anion Gap 9.1 mEq/L (5-15); Aspartate Amino Transferase 35 U/L (17-59); Bilirubin,Total 0.8 mg/dl (0.2-1.3); Blood Urea Nitrogen 13 mg/dl (9-20); Carbon Dioxide 28 mmol/L (22.0-30.0); Estimated Glomerular Filt Rate 73 ml/min (>60); GFR (African American) 88 ML/MIN (>60); Globulin 2.3 g/dL (1.3-3.2); Total Protein,Serum 6.7 g/dl (6.3-8.2)
[2024-05-29 08:49] LABS: Calcium 9.6 mg/dl (8.4-10.2); Glucose 97 mg/dl (74-100)
[2024-05-30 10:49] LABS: Immunoglobulin G, Qn 1106 mg/dL (603-1613)
== END 2024-05-29 23:59 | disposition home or self-care (01) ==
LOC: LAB 07:17
PROVIDERS: PCP Family Medicine; Visit Provider Internal Medicine Gastroenterology
DX: K75.4 Autoimmune hepatitis (principal); K74.60 Unspecified cirrhosis of liver
CPT/HCPCS: 36415; 80053; 82784; 85007; 85014; 85018; 85048; 85049

== ENCOUNTER 2024-06-05 19:59 | Emergency (ER) | payer MEDICARE, SELFPAY ==
[2024-06-05] VITALS (7 sets, daily range): BP systolic 128–165; BP diastolic 74–91; PULSE 67–81; RESP 17–20; TEMP 36.6–36.8; O2SAT 96–100; BMI 24.7
--- NOTE | 2024-06-05 20:06 | ED_ITS ---
Discharge Plan Disposition Patient Disposition: Home, Self-Care Prescriptions Prescriptions: New promethazine 25 mg suppository 25 mg SC Q6H PRN (Reason: sedation) Qty: 12 0RF amoxicillin-pot clavulanate 875-125 mg tablet 1 tab PO BID 10 Days Qty: 20 0RF No Action tamsulosin [Flomax] 0.4 mg capsule,extended release 24hr 0.4 mg PO DAILY aspirin [Adult Low Dose Aspirin] 81 mg tablet,delayed release (DR/EC) 81 mg PO DAILY Qty: 90 3RF prednisone 10 mg tablet 10 mg PO atorvastatin 10 mg tablet 10 mg PO prednisone 20 mg tablet 20 mg PO DAILY Rx Instructions: Take 2 tablets (40mg) PO once a day azathioprine 50 mg tablet 50 mg PO azathioprine 50 mg tablet 50 mg PO DAILY carvedilol 12.5 mg tablet 12.5 mg PO BID Qty: 180 2RF Rx Instructions: must administer with a meal/food amlodipine [Norvasc] 5 mg tablet 2.5 mg PO DAILY Qty: 90 3RF ranolazine 500 mg tablet extended release 12 hr 500 mg PO DAILY Qty: 90 3RF Referrals Follow up/Referrals: Provider,Referral, MD [Referring] - See instructions Activity Restrictions/Add. Instructions Additional Instructions/Restrictions: Call your family doctor to establish care for this visit to the emergency department and schedule follow-up within 48 hours to ensure improvement. If you have any worsening of your condition or any other concerning signs or symptoms, return to the emergency department or your primary care doctor for further evaluation. Clinical Impressions Clinical Impression: Vomiting and diarrhea, Diverticulitis Instructions Patient Instructions: DI for Diarrhea and Traveler's Diarrhea -- Adult, DI for Diarrhea and Traveler's Diarrhea -- Child, DI for Nausea -- Adult, DI for Nausea -- Child Print Language Print Language: Belarusian Discharge ED Provider: Kannan Randolph General Adult HPI <OSMIN Vasquez - Last Filed: 06/05/24 21:42> General Chief complaint: Nausea/Vomiting/Diarrhea Stated complaint: N/V x 3 days Time Seen by Provider: 06/05/24 20:02 History of Present Illness HPI narrative: Patient presents for evaluation of nausea vomiting diarrhea. Patient states that he has had a several week history of nightly nausea and vomiting typically after eating. He is not having any abdominal pain today. 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 He additionally has a past medical history of hypertensive heart disease coronary artery disease hyperlipidemia. He currently denies chest pain shortness of breath fever chills hemoptysis hematochezia melena hematemesis hematuria dysuria or abdominal pain.. Related Data Home Medications ?Medication ?Instructions ?Recorded ?Confirmed tamsulosin 0.4 mg capsule (Flomax) 0.4 mg PO DAILY urination 07/02/17 06/04/24 atorvastatin 10 mg tablet 10 mg PO 03/26/24 06/04/24 azathioprine 50 mg tablet 50 mg PO 03/26/24 06/04/24 azathioprine 50 mg tablet 50 mg PO DAILY 03/26/24 06/04/24 prednisone 10 mg tablet 10 mg PO 03/26/24 06/04/24 prednisone 20 mg tablet 20 mg PO DAILY 03/26/24 06/04/24 Previous Rx's ?Medication ?Instructions ?Recorded aspirin 81 mg tablet,delayed 81 mg PO DAILY Blood thinner #90 02/19/23 release (Adult Low Dose Aspirin) tabs amlodipine 5 mg tablet (Norvasc) 2.5 mg (1/2 x 5 mg) PO DAILY bp 03/07/24 #90 tabs ranolazine 500 mg tablet,extended 500 mg PO DAILY * #90 tabs 03/07/24 release,12 hr carvedilol 12.5 mg tablet 12.5 mg PO BID #180 tabs 03/26/24 amoxicillin 875 mg-potassium 1 tab PO BID 10 days #20 tabs 06/05/24 clavulanate 125 mg tablet promethazine 25 mg rectal 25 mg SC Q6H PRN sedation #12 ea 06/05/24 suppository Allergies Allergy/AdvReac Type Severity Reaction Status Date / Time atorvastatin AdvReac Mild elevated Uncoded 06/04/24 09:29 LFTS pravastatin AdvReac Mild myalgia Uncoded 06/04/24 09:29 repatha AdvReac Mild rash/itchin Uncoded 06/04/24 09:29 g PFS <OSMIN Vasquez - Last Filed: 06/05/24 21:42> [facility] Disclaimer: The information contained in this section may have been updated after the patient was seen, as this information can be updated by other users. Medical History Cirrhosis of liver Elevated liver enzymes Angina at rest History of chest pain Surgical History History of liver biopsy History of hernia repair History of colonoscopy Hx of hemorrhoidectomy Family History Other Family history of myocardial infarction Social History Smoking Status: Never smoker alcohol intake: never substance use type: denies use current occupational status: retired Travel in the last 8 weeks: None housing: house caffeine: Yes Have you lived/traveled outside [place] in past 30 days?: No Contact w/someone who lives/traveled outside US past 30 days?: No Exposure to someone with infectious disease in past 14 days?: No Do you have a fever (greater than 100.4 F or 38 C)?: No Have you tested positive for COVID-19: No Exposed to someone with COVID-19 in past 14 days?: No Do you have a sore throat?: No Do you have a cough?: No Do you have any weakness?: Yes Do you have any diarrhea?: No Are you experiencing any unusual bleeding?: No Do you have any muscle aches/pain?: No Do you have any abdominal pain?: No Are you experiencing loss of taste or smell?: No Other Medical History Have you received the Flu Vaccine for this season: Yes Have you received the Pneumonia Vaccine: Yes <OSMIN Vasquez - Last Filed: 06/05/24 21:42> ROS Obtained: Yes Systems reviewed as appropriate & no additional complaints except as documented Physical Exam <OSMIN Vasquez - Last Filed: 06/05/24 21:42> General General appearance: alert and in no apparent distress Respiratory Respiratory exam: Present normal lung sounds bilaterally Cardiovascular Cardiovascular exam: Present regular rate Neurological Exam Neurological exam: Present alert and oriented X3 Medical Decision Making <OSMIN Vasquez - Last Filed: 06/05/24 21:42> Medical Records Medical records reviewed: Yes I reviewed the patient's medical records. Screening: Per USPSTF and CDC recommendations, given the prevalence of disease in our region, it is our hospital?s policy to screen for HIV and viral Hepatitis for all patients aged 18 and over and those with ongoing risk factors. [place] Inquiry Pt receiving controlled substance: No Vital Signs: 06/05/24 20:03 06/05/24 20:30 Temperature 98.2 F Temperature Source Oral Pulse Rate 71 Pulse Rate [Right Brachial] 71 Respiratory Rate 17 Blood Pressure 146/78 H Blood Pressure [Right Arm] 165/91 H Blood Pressure Mean [Right Arm] 115 Blood Pressure Source [Right Arm] Automatic Cuff Blood Pressure Position [Right Arm] Sitting 02 Sat by Pulse Oximetry 100 98 Oxygen Delivery Method Room Air Lab Data Lab results reviewed: Yes I reviewed the patient's lab results. Lab Results 06/05/24 20:00: WBC 8.0, RBC 4.69, Hgb 15.6, Hct 45.7, MCV 97.4 H, MCH 33.3 H, MCHC 34.1, RDW 12.9, Plt Count 192, MPV 10.3, Neut % (Auto) 63.4, Lymph % (Auto) 27.4, [place] % (Auto) 7.2, Eos % (Auto) 1.5, Baso % (Auto) 0.4, Neut # (Auto) 5.1, Lymph # (Auto) 2.2, [place] # (Auto) 0.6, Eos # (Auto) 0.1, Baso # (Auto) 0.0, PT 11.8, INR 1.06, Sodium 141, Potassium 3.6, Chloride 102, Carbon Dioxide 30, Anion Gap 12.6, BUN 12, Creatinine 0.90, Estimated Creat Clear 69, Estimated GFR 82, Est GFR ( Amer) 100, Glucose 96, Calcium 10.1, Magnesium 1.7, Total Bilirubin 0.9, AST 37, ALT 28, Alkaline Phosphatase 69, Total Protein 7.7, Albumin 4.7, Globulin 3.0, Albumin/Globulin Ratio 1.6, Lipase 57, Procalcitonin 0.068, HCV Ab DULCE w/Rflx PCR Qn Negative, HIV Ag/Ab Combo Qual Negative 06/05/24 20:00 06/05/24 20:00 Orders (Tests/Meds): ED MEDICATIONS Generic Name Dose Route Start Last Admin Trade Name Freq PRN Reason Stop Dose Admin Sodium Chloride 10 ml 06/05/24 21:44 06/05/24 21:44 Sodium Chloride 0.9% 10ml Syr (Rad Only) IV 07/05/24 21:43 10 ml NEEDED PRN Administration Maintain IV Site Discontinued Medications Generic Name Dose Route Start Last Admin Trade Name Freq PRN Reason Stop Dose Admin Iopamidol 75 ml 06/05/24 21:44 06/05/24 21:44 Iopamidol-370 (76%);100ml Bottle IV 06/05/24 21:45 75 ml ONCE ONE Administration Ondansetron HCl 4 mg 06/05/24 20:22 06/05/24 20:35 Ondansetron 4mg/2ml Vial IV 06/05/24 20:23 4 mg ONCE ONE Administration ORDERS Category Date Time Status CT abdomen pelvis w con Stat Cat Scan 06/05/24 20:22 Completed CBC w/Auto Diff [Complete Blood Count Auto Diff] Stat Lab 06/05/24 20:00 Completed CMP [Comprehensive Metabolic Panel] Stat Lab 06/05/24 20:00 Completed HIV Combo Stat Lab 06/05/24 20:00 Completed Hepatitis C Ab Qual. W/ RFX Stat Lab 06/05/24 20:00 Completed INR [Prothrombin Time INR] Stat Lab 06/05/24 20:00 Completed Lipase Stat Lab 06/05/24 20:00 Completed Magnesium Stat Lab 06/05/24 20:00 Completed Procalcitonin Stat Lab 06/05/24 20:00 Completed UA [Urinalysis and Microscopic] Stat Lab 06/05/24 20:23 Ordered Medical Decision Narrative: In summary patient is a 73-year-old male who presents to the emergency department for evaluation of nausea vomiting diarrhea. Patient is hemodynamically stable upon arrival, afebrile. Exam is remarkable for clear breath sounds with no increased work of breathing accessory muscle use or adventitious sounds, normal heart sounds, abdomen is soft without rebound or guarding or rigidity. Bowel sounds normal active.. Differential diagnosis includes gastroenteritis versus biliary colic versus worsening liver disease etc. Initial workup will be conducted with hematologic labs urinalysis CT scan abdomen pelvis with contrast. Initial interventions include crystalloid bolus Zofran. Initial workup ordered and pending at the time of handoff Dr. Ahuja at 2200 hrs. <Kannan Randolph MD - Last Filed: 06/05/24 22:59> Vital Signs: 06/05/24 20:03 06/05/24 20:30 Temperature 98.2 F Temperature Source Oral Pulse Rate 71 Pulse Rate [Right Brachial] 71 Respiratory Rate 17 Blood Pressure 146/78 H Blood Pressure [Right Arm] 165/91 H Blood Pressure Mean [Right Arm] 115 Blood Pressure Source [Right Arm] Automatic Cuff Blood Pressure Position [Right Arm] Sitting 02 Sat by Pulse Oximetry 100 98 Oxygen Delivery Method Room Air Lab Data Lab Results 06/05/24 20:00: WBC 8.0, RBC 4.69, Hgb 15.6, Hct 45.7, MCV 97.4 H, MCH 33.3 H, MCHC 34.1, RDW 12.9, Plt Count 192, MPV 10.3, Neut % (Auto) 63.4, Lymph % (Auto) 27.4, [place] % (Auto) 7.2, Eos % (Auto) 1.5, Baso % (Auto) 0.4, Neut # (Auto) 5.1, Lymph # (Auto) 2.2, [place] # (Auto) 0.6, Eos # (Auto) 0.1, Baso # (Auto) 0.0, PT 11.8, INR 1.06, Sodium 141, Potassium 3.6, Chloride 102, Carbon Dioxide 30, Anion Gap 12.6, BUN 12, Creatinine 0.90, Estimated Creat Clear 69, Estimated GFR 82, Est GFR ( Amer) 100, Glucose 96, Calcium 10.1, Magnesium 1.7, Total Bilirubin 0.9, AST 37, ALT 28, Alkaline Phosphatase 69, Total Protein 7.7, Albumin 4.7, Globulin 3.0, Albumin/Globulin Ratio 1.6, Lipase 57, Procalcitonin 0.068, HCV Ab DULCE w/Rflx PCR Qn Negative, HIV Ag/Ab Combo Qual Negative Orders (Tests/Meds): ED MEDICATIONS Generic Name Dose Route Start Last Admin Trade Name Freq PRN Reason Stop Dose Admin Sodium Chloride 10 ml 06/05/24 21:44 06/05/24 21:44 Sodium Chloride 0.9% 10ml Syr (Rad Only) IV 07/05/24 21:43 10 ml NEEDED PRN Administration Maintain IV Site Discontinued Medications Generic Name Dose Route Start Last Admin Trade Name Víctorq PRN Reason Stop Dose Admin Iopamidol 75 ml 06/05/24 21:44 06/05/24 21:44 Iopamidol-370 (76%);100ml Bottle IV 06/05/24 21:45 75 ml ONCE ONE Administration Ondansetron HCl 4 mg 06/05/24 20:22 06/05/24 20:35 Ondansetron 4mg/2ml Vial IV 06/05/24 20:23 4 mg ONCE ONE Administration ORDERS Category Date Time Status CT abdomen pelvis w con Stat Cat Scan 06/05/24 20:22 Completed CBC w/Auto Diff [Complete Blood Count Auto Diff] Stat Lab 06/05/24 20:00 Completed CMP [Comprehensive Metabolic Panel] Stat Lab 06/05/24 20:00 Completed HIV Combo Stat Lab 06/05/24 20:00 Completed Hepatitis C Ab Qual. W/ RFX Stat Lab 06/05/24 20:00 Completed INR [Prothrombin Time INR] Stat Lab 06/05/24 20:00 Completed Lipase Stat Lab 06/05/24 20:00 Completed Magnesium Stat Lab 06/05/24 20:00 Completed Procalcitonin Stat Lab 06/05/24 20:00 Completed UA [Urinalysis and Microscopic] Stat Lab 06/05/24 20:23 Ordered Medical Decision Narrative: In summary patient is a 73-year-old male who presents to the emergency department for evaluation of nausea vomiting diarrhea. Patient is hemodynamically stable upon arrival, afebrile. Exam is remarkable for clear breath sounds with no increased work of breathing accessory muscle use or adventitious sounds, normal heart sounds, abdomen is soft without rebound or guarding or rigidity. Bowel sounds normal active.. Differential diagnosis includes gastroenteritis versus biliary colic versus worsening liver disease etc. Initial workup will be conducted with hematologic labs urinalysis CT scan abdomen pelvis with contrast. Initial interventions include crystalloid bolus Zofran. Initial workup ordered and pending at the time of handoff Dr. Ahuja at 2200 hrs. I was consulted by the NADYA, and we discussed the complexity of the problems being addressed. I approved the treatment and management plan for this patient's care in the Emergency Department, thus performing a substantive portion of the medical decision making. I independently interpreted patient's workup, patient has nonactionable hematologic labs. CT abdomen and pelvis was independently interpreted, isolated diverticulitis without complication including abscess or perforation in the left lower quadrant. Patient given first dose of Augmentin here. Because patient at baseline without signs or symptoms of clinical decompensation, deemed appropriate for discharge. Results were relayed to patient who voiced understanding and were agreeable to outpatient management and follow up. I discussed my clinical impression with patient and answered all questions. At this time, the evidence for any other entities in the differential is insufficient to warrant any further testing or ED observation. This was explained as well. Advisory was given that persistent or worsening symptoms require further evaluation. I confirmed the understanding of this discussion. Kannan Randolph MD Critical Care <OSMIN Vasquez - Last Filed: 06/05/24 21:42> Critical Care Time Critical Care Time: No
--- NOTE | 2024-06-05 20:22 | CT_ITS ---
PROCEDURE INFORMATION: Exam: CT Abdomen And Pelvis With Contrast Exam date and time: 06/05/2024 9:41 PM Age: 73 years old Clinical indication: Nausea and vomiting; Additional info: Nausea vomiting diarrhea TECHNIQUE: Imaging protocol: Computed tomography of the abdomen and pelvis with contrast. Radiation optimization: All CT scans at this facility use at least one of these dose optimization techniques: automated exposure control; mA and/or kV adjustment per patient size (includes targeted exams where dose is matched to clinical indication); or iterative reconstruction. Contrast material: ISOVUE; Contrast volume: 75 ml; Contrast route: IV; COMPARISON: CR XR ABDOMEN MIN 2V 01/31/2022 12:05 PM FINDINGS: Lungs: There is bibasilar atelectasis. Liver: Mild hepatic steatosis is evident. The liver capsule has a nodular quality suggestive of cirrhosis. No focal hepatic lesion. Gallbladder and biliary ducts: Normal. No calcified stones. No ductal dilation. Pancreas: Normal. No ductal dilation. Spleen: Normal. No splenomegaly. Adrenal glands: Normal. No mass. Kidneys and ureters: Normal. No hydronephrosis. Stomach and bowel: There is diffuse colonic diverticulosis most extensive involving the left colon. There is a focal area of inflammation involving the proximal descending colon consistent with diverticulitis. No perforation or abscess is evident. No bowel obstruction. Appendix: No evidence of appendicitis. Intraperitoneal space: Unremarkable. No free air. No significant fluid collection. Vasculature: There is moderate calcific atherosclerotic disease. 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 Lymph nodes: Unremarkable. No enlarged lymph nodes. Urinary bladder: There are a few very small bladder calculi noted. Reproductive: The prostate gland is enlarged. Bones/joints: There are moderate degenerative changes of the spine. There is subtle anterolisthesis at L4-L5. No acute fractures evident. Soft tissues: Unremarkable. IMPRESSION: 1. Mild proximal descending colon diverticulitis. 2. The appearance of the liver suggests cirrhosis. 3. Numerous very small bladder calculi. 4. Other nonemergent findings as noted.
[2024-06-05 20:30] LABS: Basophils % 0.4 % (0.1-2.0); Eosinophils # 0.1 K/mm3 (0.0-0.4); Eosinophils % 1.5 % (0.1-12.0); Hematocrit 45.7 % (42.0-52.0); Hemoglobin 15.6 g/dL (14.1-18.0); Lymphocytes # 2.2 K/mm3 (0.7-4.5); Lymphocytes % 27.4 % (10-50); Mean Corpuscular HGB Conc 34.1 g/dL (31.8-35.4); Mean Corpuscular Hemoglobin 33.3 pg (27.0-31.2); Mean Corpuscular Volume 97.4 fl (80-94); Mean Platelet Volume 10.3 fl (7.4-10.4); Monocytes # 0.6 K/mm3 (0.1-1.0); Monocytes % 7.2 % (1.7-9.3); Neutrophils # 5.1 K/mm3 (1.8-7.8); Neutrophils % 63.4 % (37.0-80.0); Platelet Count 192 K/mm3 (142-424); Red Blood Count 4.69 M/mm3 (4.60-6.20); Red Cell Distribution Width 12.9 % (11.5-17.5)
[2024-06-05 20:32] LABS: Albumin Level 4.7 g/dl (3.5-5.0); Chloride 102 mmol/L (98-107); Potassium 3.6 mmoL/L (3.5-5.1); Sodium 141 mmol/L (136-145)
[2024-06-05 20:34] LABS: Blood Urea Nitrogen 12 mg/dl (9-20); Creatinine Clearance Estimated 69 mL/min (50-200); Estimated Glomerular Filt Rate 82 ml/min (>60); GFR (African American) 100 ML/MIN (>60)
[2024-06-05 20:35] LABS: Alanine Aminotransferase 28 U/L (12-78); Albumin/Globulin Ratio 1.6 (1.1-1.8); Alkaline Phosphatase 69 U/L (38-126); Anion Gap 12.6 mEq/L (5-15); Aspartate Amino Transferase 37 U/L (17-59); Bilirubin,Total 0.9 mg/dl (0.2-1.3); Calcium 10.1 mg/dl (8.4-10.2); Carbon Dioxide 30 mmol/L (22.0-30.0); Glucose 96 mg/dl (74-100); Lipase 57 U/L (23-300); Magnesium 1.7 mg/dl (1.6-2.3); Total Protein,Serum 7.7 g/dl (6.3-8.2)
[2024-06-05] MEDS: ONDANSETRON 4MG/2ML VIAL 4 MG IV (20:35)
[2024-06-05 20:42] LABS: INR 1.06 (0.9-1.1); Prothrombin Time 11.8 seconds (10.1-12.5)
[2024-06-05 21:05] LABS: Procalcitonin 0.068 ng/mL (0.0-2.0)
[2024-06-05 21:16] LABS: HIV Combo NEGATIVE (Negative)
[2024-06-05 21:24] LABS: Hepatitis C Ab Qual. W/ RFX NEGATIVE (Negative)
[2024-06-05] MEDS: SODIUM CHLORIDE 0.9% 10ML SYR (RAD ONLY) 10 ML IV (21:44)
[2024-06-05] MEDS: IOPAMIDOL-370 (76%);100ML BOTTLE 75 ML IV (21:44)
[2024-06-05] MEDS: AMOXICILLIN/CLAVULANATE POTASSIUM 875/125MG TABLET 1 EACH PO (23:07)
== END 2024-06-05 23:17 | disposition home or self-care (01) ==
PROVIDERS: Physician Assistant; Emergency Provider Emergency Medicine; PCP Family Medicine
DX: K57.92 Diverticulitis of intestine, part unspecified, without perforation or abscess without bleeding (principal); R11.2 Nausea with vomiting, unspecified; R19.7 Diarrhea, unspecified; K74.60 Unspecified cirrhosis of liver; R74.8 Abnormal levels of other serum enzymes; E78.2 Mixed hyperlipidemia; F41.9 Anxiety disorder, unspecified; I25.10 Atherosclerotic heart disease of native coronary artery without angina pectoris; I11.9 Hypertensive heart disease without heart failure
CPT/HCPCS: 74177; 80053; 83690; 83735; 84145; 85025; 85610; 86803; 87389; 96374; 99285; J2405; Q9967

== ENCOUNTER 2024-06-09 08:48 | Outpatient (CLI) | payer MEDICARE, SELFPAY ==
--- NOTE | 2024-06-09 09:00 | NM_ITS ---
FINAL REPORT CLINICAL HISTORY: Right upper quad pain FINDINGS: Sequential anterior projection images of the abdomen were obtained after the intravenous injection of 8.20 mCi technetium 99m Choletec. There is normal uptake of radiotracer by the liver. Activity is noted in a timely fashion. After 1 hour, 1.6 ?g of CCK was injected intravenously for calculation of gallbladder ejection fraction. The gallbladder ejection fraction is 84%, which is within normal limits. IMPRESSION: No evidence of cystic duct or bile duct obstruction. Normal gallbladder ejection fraction of 84%. Reviewed, Interpreted and Dictated by Alber Guo MD Transcribed by Teresa Song Authenticated and [facility]
[2024-06-09] MEDS: SINCALIDE 1.6 MCG in 0.9 % SODIUM CHLORIDE 50 ML 100 MCG IV (11:04)
[2024-06-09] MEDS: SODIUM CHLORIDE 0.9% 10ML SYR (RAD ONLY) 10 ML IV (11:05)
[2024-06-09] MEDS: ISOTOPE CHOLETECH;1 DOSE (UP TO 15 MCI) IV (11:05)
== END 2024-06-09 23:59 | disposition home or self-care (01) ==
LOC: RAD 08:48
PROVIDERS: PCP Family Medicine; Visit Provider Surgery
DX: R10.11 Right upper quadrant pain (principal)
CPT/HCPCS: 78227; A9537; J2805

== ENCOUNTER 2024-06-30 07:27 | Outpatient (CLI) | payer MEDICARE, SELFPAY ==
--- OUTSIDE RECORDS SUMMARY | 2024-06-30 07:30 | XMS_ITS | Data Portability ---
Author Organization [place] - [facility] - [place] [facility] ADMIN Address [address] [place] [id number] Care Team Providers Care Group Manager Name Role Phone JESSICA VIERA Referring Provider JESSICA VIERA Primary Care Provider Assessment Encounter Date Assessment Date Assessment LastModified by Organization Details LastModified Time 09/13/2022 09/13/2022 71-year-old male with: 1) History of colon polyps: No polyps on colonoscopy 06/2022. 3 year repeat was recommended. He plans to have this done with Dr. Viera at [facility]. 2) Constipation: Well managed on Miralax once daily. 3) Heartburn: Resolved. He has stopped acid reducing medications. f/u PRN [email or web address] Not available 09/13/2022 16:00:19 04/02/2023 04/02/2023 71-year-old male with: 1) Elevated liver enzymes -Will obtain lab workup per below to rule out hepatitis, autoimmune, or hereditary/metabo lic causes. -Will order liver ultrasound -Unable to perform NOLASCO Fibrosure test today as patient is not fasting. Patient was given printed lab order and instructed to get this lab drawn at [facility] when he is fasting and goes for his ultrasound. -Repatha LiverTox score: E, unlikely cause of clinically apparent liver injury -Vitamin-c Livertox score: E, unlikely cause of clinically apparent liver injury. The serum ALT elevations that occur with extremely high doses of vitamin C are likely due to a direct but minimal toxic effect on the liver. The injury is, however, short lived and has not been linked to cases of acute or chronic hepatitis, acute liver failure or cirrhosis. -Diet and exercise counseled -Continue to avoid alcohol -Avoid NSAIDs, can take up to 4gm of Tylenol if needed 2) History of colon polyps: No polyps on colonoscopy 06/2022. 3 year repeat was recommended. He plans to have this done with Dr. Viera at [facility]. 3) Constipation: Well managed on Miralax once daily. 4) Heartburn: Resolved. He has stopped acid reducing medications. f/u 6 weeks [email or web address] Not available 04/02/2023 11:55:33 05/14/2023 05/14/2023 72-year-old male with: 1) Elevated liver enzymes: Possible auto immune hepatitis vs drug induced liver injury vs other. Patient has a family history of liver disease in his brother and nephew who are both . -Liver workup revealed actin smooth muscle antibody elevated at 43, GONZALO direct positive, anti DNA antibody quant elevated at 27, TPO antibody elevated at 170, anti chromatin antibody elevated at 6, anti-cardiolipin IgG and IgM elevated, IgG elevated at 3136, AST 97, ALT 106, and INR 1.1, platelets 167. Hepatitis panel negative. Previously referred [facility]. -Liver ultrasound 04/10/2023 revealed normal echogenicity of the liver. CT scan 04/25/2023 revealed fatty infiltration of the liver. -Will order CT guided liver biopsy at [facility] for further evaluation -Diet and exercise counseled -Continue to avoid alcohol -Avoid NSAIDs, can take up to 4gm of Tylenol if needed -Immune to hep A, not immune to hep b 2) Renal cyst on liver US: Septated right renal cyst measuring up to 3.9 cm. Recommend follow-up renal mass protocol CT or ultrasound. -Renal mass protocol CT obtained 04/25/23 revealed simple appearing renal cysts, prominent periaortic and pericaval lymph nodes, Fatty infiltration of the liver, and 4 mm right lower lobe lung nodule. One-year follow-up chest CT recommended. Discussed this with the patient. 3) History of colon polyps: No polyps on colonoscopy 06/2022. 3 year repeat was recommended. He plans to have this done with Dr. Viera at [facility]. 4) Constipation: Well managed on Miralax once daily. 5) Heartburn: Resolved. He has stopped acid reducing medications. F/u after liver biopsy [email or web address] Not available 05/14/2023 12:55:05 08/09/2023 08/09/2023 72-year-old male with: 1) Elevated liver enzymes: Possible auto immune hepatitis vs drug induced liver injury vs other. Patient has a family history of liver disease in his brother and nephew who are both . -Liver workup revealed actin smooth muscle antibody elevated at 43, GONZALO direct positive, anti DNA antibody quant elevated at 27, TPO antibody elevated at 170, anti chromatin antibody elevated at 6, anti-cardiolipin IgG and IgM elevated, IgG elevated at 3136, AST 97, ALT 106, and INR 1.1, platelets 167. Hepatitis panel negative. - Will recheck CMP and CBC today. -Previously referred to [facility]. -Liver ultrasound 04/10/2023 revealed normal echogenicity of the liver. CT scan 04/25/2023 revealed fatty infiltration of the liver. -Will order CT guided liver biopsy at [facility]. Order was sent to [facility] x2, the patient was never called to schedule the procedure. Ordered liver biopsy to be performed at [facility] yesterday. -Diet and exercise counseled -Continue to avoid alcohol -Avoid NSAIDs, can take up to 4gm of Tylenol if needed -Immune to hep A, not immune to hep b 2) Renal cyst on liver US: Septated right renal cyst measuring up to 3.9 cm. Recommend follow-up renal mass protocol CT or ultrasound. -Renal mass protocol CT obtained 04/25/23 revealed simple appearing renal cysts, prominent periaortic and pericaval lymph nodes, Fatty infiltration of the liver, and 4 mm right lower lobe lung nodule. One-year follow-up chest CT recommended. Discussed this with the patient. 3) History of colon polyps: No polyps on colonoscopy 06/2022. 3 year repeat was recommended. He plans to have this done with Dr. Viera at [facility]. 4) Constipation: Well managed on Miralax once daily. 5) Heartburn: Resolved. He has stopped acid reducing medications. F/u after liver biopsy [email or web address] Not available 08/09/2023 10:06:50 Plan of Treatment Reminders Order Date Submit Date Provider Last Modified By Organization Details Last Modified Time Details Appointments None recorded. Lab CBC 2023 024 [facility], [address], [address], [place], [address], 4 11:12:44 CMP, serum or plasma 2023 024 [facility], [address], [address], [place], [address], 4 11:12:42 hepatic function panel, serum 2023 024 [facility], [address], [address], [place], [address], 4 11:14:13 hepatitis panel (A+B+C), acute, serum 2023 024 [facility], [address], [address], [place], [address], 4 11:14:15 hepatitis B surface Ab, quantitat pepe, serum 2023 024 [facility], [address], [address], [place], [address], 4 11:14:20 hepatitis A virus Ab, qualitati ve, immunoass ay, serum 2023 024 [facility], [address], [address], [place], [address], 4 11:14:27 actin smooth muscle IgG Ab, quant, serum 2023 024 [facility], [address], [address], [place], [address], 4 11:14:21 mitochond rial M2 igg Ab, serum 2023 024 [facility], [address], [address], [place], [address], 4 11:14:22 igg, quantitat pepe, serum 2023 024 [facility], [address], [address], [place], [address], 4 11:14:25 GONZALO (antinucl ear antibodie s) screen, serum 2023 024 [facility], [address], [address], [place], [address], 4 11:14:23 HFE gene mutation analysis, blood or tissue 2023 024 [facility], [address], [address], [place], [address], 4 11:14:18 iron + TIBC + ferritin, serum 2023 024 [facility], [address], [address], [place], [address], 4 11:14:09 alpha-1-a ntitrypsi n (aat), QN, serum 2023 024 [email or web address], [address], [address], [place], [address], 4 10:37:40 alpha-1-a ntitrypsi n (aat), QN, serum 2023 024 [facility], [address], [address], [place], [address], 4 11:14:14 CBC 2023 024 [facility], [address], [address], [place], [address], 4 11:14:12 PT/INR 2023 024 [facility], [address], [address], [place], [address], 4 11:14:16 nonalcoho lic steatohep atitis + fibrosis panel, serum or plasma 2023 024 [facility], [address], [address], [place], [address], 4 11:14:10 afp (alpha-fe toprotein ) tumor marker, serum or plasma 2023 024 [facility], [address], [address], [place], [address], 4 11:14:19 Referral None recorded. Procedures biopsy, liver, ct guidance (PROC) - Concern for autoimmun e hepatitis . Elevated liver enzyme workup on 04/02/23 revealed actin smooth muscle antibody elevated at 43, GONZALO direct positive, anti DNA antibody quant elevated at 27, TPO antibody elevated at 170, anti chromatin antibody elevated at 6, anti-card iolipin IgG and IgM elevated, IgG elevated at 3136, AST 97, ALT 106, and INR 1.1, platelets 167. Hepatitis panel negative. Family history of liver disease. [address] [place] [address] [facility], [address], [place], [address], 4 13:49:01 Surgeries None recorded. Imaging US, liver 2023 024 [facility] (Centralized Scheduling), [address] [facility], [place], [address], 4 10:48:53 Medication Orders polyethyl jeffrey glycol 3350 17 gram/dose oral powder 2022 024 [facility], [address] [place] [address], [facility], [place], [address], 4 10:33:01 famotidin e 20 mg tablet 2022 023 [email or web address] [facility], [address] [place] [address], [facility], [place], [address], 4 10:15:02 Patient TargetsNo targets recorded. Patient InstructionsNo instructions recorded. Reason for Referral None Reported. Results Created Date Observation Date Name Description Value Unit Range Abnormal Flag Note LastModifiedBy Organization Detail LastModifiedTime 04/02/19 24 04/03/2023 FE+TI BC+FE R iron bind.cap.(TI BC) 396 ug/dL 250-45 0 Not Available [facility] ([facility]) [address] [place], [address], 04/19/2023 11:14:09 04/02/19 24 04/03/2023 FE+TI BC+FE R UIBC 168 ug/dL 111-34 3 Not Available [facility] ([facility]) [address] [place], [address], 04/19/2023 11:14:09 04/02/19 24 04/03/2023 FE+TI BC+FE R iron 228 ug/dL 38-169 above high normal Not Available [facility] ([facility]) [address] [place], [address], 04/19/2023 11:14:09 04/02/19 24 04/03/2023 FE+TI BC+FE R iron saturation 58 % 15-55 above high normal Not Available [facility] ([facility]) [address] [place], [address], 04/19/2023 11:14:09 04/02/19 24 04/03/2023 FE+TI BC+FE R ferritin 66 NG/mL 30-400 Not Available [facility] ([facility]) [address] [place], [address], 04/19/2023 11:14:04/02/19 24 04/02/2023 NOLASCO FIBRO SURE( R) PLUS methodology: COMMEN T The christopher margaret teste d are perfo rmed by Fibro Sure- Speci fic metho ds. Not inten ded for use with other diagn ostic consi derat ions. Not Available [facility] ([facility]) [address] [place], [address], 04/19/2023 11:14:10 04/02/19 24 04/02/2023 NOLASCO FIBRO SURE( R) PLUS interpretati ons: COMMEN T Quant itati ve resul ts of 10 bioch emica ls in combi natio n with age and gende r, are christopher zed using a compu tatio nal algor ithm to provi de a quant itati ve surro gate marke r (0.0- 1.0) of liver fibro sis ([place]antua vir F0-F4 ), hepat ic steat osis (0.0- 1.0, S0-S3 ), and Non-A lcoho lic Steat o-Hep atiti s (NOLASCO ) (0.0- 1.0, N0-N3 ). The absen ce of steat osis (S<0. 40) precl udes the diagn osis of NOLASCO. Fibro sis marke r: In a study of 171 Non-A lcoho lic Fatty Liver Disea se (NAFL D) patie nts where 23% had signi fican t NAFLD fibro sis ([place] vir F2-F4 ) and 11% had cirrh osis by liver biops y, a fibro sis resul t of >0.3 yield ed a sensi tivit y of 83% and a speci ficit y of 78% for the detec tion of signi fican t fibro sis.[ 1] Steat osis marke r: In a popul ation of 2997 patie nts, where 61% had signi fican t steat osis (>=5% ) on a liver biops y, a steat osis score >0.4 had a sensi tivit y of 79% and a speci ficit y of 50% for ident ifica tion of signi fican t steat osis. [2] NOLASCO marke r: In a popul ation of 1081 NAFLD patie nts, where 51% had at least some NOLASCO by liver biops y, a predi ction of NOLASCO had a sensi tivit y of 72% for ident ifyin g NOLASCO and a speci ficit y of 71%.[ 3] Not Available [facility] ([facility]) [address] [facility] [facility], [place], [address], 04/19/2023 11:14:10 04/02/19 24 04/02/2023 NOLASCO FIBRO SURE( R) PLUS fibrosis scoring: COMMEN T <=0.2 1 = Stage F0 - No fibro sis 0.21 - 0.27 = Stage F0 - F1 0.27 - 0.31 = Stage F1 - Shahla l fibro sis 0.31 - 0.48 = Stage F1 - F2 0.48 - 0.58 = Stage F2 - Bridg ing fibro sis with few septa 0.58 - 0.72 = Stage F3 - Bridg ing fibro sis with many septa 0.72 - 0.74 = Stage F3 - F4 >0.74 = Stage F4 - Cirrh osis Not Available [facility] ([facility]) [address] [place], [address], 04/19/2023 11:14:10 04/02/19 24 04/02/2023 NOLASCO FIBRO SURE( R) PLUS steatosis scoring COMMEN T <=0.4 0 = S0 - No Steat osis (<5%) 0.40 - 0.55 = S1 - Mild Steat osis (but Clini koki Signi fican t) (5-33 %) >0.55 = S2S3- Moder ate to Sever e Steat osis (Clin icall y Signi fican t) (34-1 00%) Not Available [facility] ([facility]) [address] [place], [address], 04/19/2023 11:14:10 04/02/19 24 04/02/2023 NOLASCO FIBRO SURE( R) PLUS nolasco scoring COMMEN T <=0.2 5 = N0 - No NOLASCO 0.25 - 0.50 = N1 - Mild NOLASCO 0.50 - 0.75 = N2 - Moder ate NOLASCO >0.75 = N3 - Sever e NOLASCO Not Available [facility] ([facility]) [address] [place], [address], 04/19/2023 11:14:10 04/02/19 24 04/02/2023 NOLASCO FIBRO SURE( R) PLUS limitations: COMMEN T NOLASCO Fibro Sure( R) Plus is recom abdelrahman d for patie nts with suspe cted non-a lcoho lic fatty liver disea se. It is not recom abdelrahman d for patie nts with other liver disea ses. It is also not recom abdelrahman d in patie nts with Gilbe rt Disea se, acute hemol ysis, acute viral hepat itis, drug induc ed hepat itis, nilo ic liver disea se, autoi mmune hepat itis and/o r extra -hepa tic maribeth stasi s. Any of these clini dean situa tions may lead to inacc urate quant itati ve predi ction s of fibro sis. Not Available [facility] ([facility]) [address], [place], [address], 04/19/2023 11:14:10 04/02/19 24 04/02/2023 NOLASCO FIBRO SURE( R) PLUS comment: COMMEN T This test was devel oped and its perfo rmanc e nasim cteri stics deter mined by [facility]. It has not been clear ed or appro narinder by the Food and Drug Admin istra tion. For quest ions regar ding this repor t pleas e conta ct custo reid servi ce at [phone]. Refer ences : 1. Marciano Galloway et al. Diagn ostic Value of Bioch emica l Marke rs (Fibr oTest ) for the predi ction of Liver Fibro sis in patie nts with Non-A lcoho lic Fatty Liver Disea se. [facility] Gastr oente rolog y 2006; 6:6. 2. Zaina Cox. et al. The Diagn ostic Perfo rmanc e of a Simpl ified Blood Test (Stea toTes t-2) for the Predi ction of Liver Steat osis. Eur J Gastr oente rol Hepat ol. 2019; 31:39 3-402 . 3. Zaina Cox. et al. Diagn ostic perfo rmanc e of a new nonin vasiv e test for nonal cohol ic steat ohepa titis using a simpl ified histo logic al refer ence. Eur J Gastr oente rol Hepat ol. 2017; 30:56 9-577 . Not Available [facility] ([facility]) [address] [place], [address], 04/19/2023 11:14:10 04/02/19 24 04/03/2023 NOLASCO FIBRO SURE( R) PLUS fibrosis score 0.89 0.00-0 .21 above high normal Not Available [facility] ([facility]) [address] [place], [address], 04/19/2023 11:14:10 04/02/19 24 04/03/2023 NOLASCO FIBRO SURE( R) PLUS fibrosis stage COMMEN T F4 - Cirrh osis Not Available [facility] ([facility]) [address] [facility], [place], [address], 04/19/2023 11:14:10 04/02/19 24 04/03/2023 NOLASCO FIBRO SURE( R) PLUS steatosis score 0.50 0.00-0 .40 above high normal Not Available [facility] ([facility]) [address] [place], [address], 04/19/2023 11:14:10 04/02/19 24 04/03/2023 NOLASCO FIBRO SURE( R) PLUS steatosis grade COMMEN T S1 - Mild Steat osis (But Clini koki Signi fican t) (5-33 %) Not Available [facility] ([facility]) [address] [place], [address], 04/19/2023 11:14:10 04/02/19 24 04/03/2023 NOLASCO FIBRO SURE( R) PLUS nolasco score 0.96 0.00-0 .25 above high normal Not Available [facility] ([facility]) [address] [place], [address], 04/19/2023 11:14:10 04/02/19 24 04/03/2023 NOLASCO FIBRO SURE( R) PLUS nolasco grade COMMEN T N3 - Sever e NOLASCO Not Available [facility] ([facility]) [address] [place], [address], 04/19/2023 11:14:10 04/02/19 24 04/03/2023 NOLASCO FIBRO SURE( R) PLUS alpha 2-macroglobu mason, qn 526 mg/dL 110-27 6 above high normal Not Available [facility] ([facility]) [address] [place], [address], 04/19/2023 11:14:10 04/02/19 24 04/03/2023 NOLASCO FIBRO SURE( R) PLUS haptoglobin 119 mg/dL 34-355 Not Available [facility] ([facility]) [address] [place], [address], 04/19/2023 11:14:10 04/02/19 24 04/03/2023 NOLASCO FIBRO SURE( R) PLUS apolipoprote in A-1 150 mg/dL 101-17 8 Not Available [facility] ([facility]) [address] [place], [address], 04/19/2023 11:14:10 04/02/19 24 04/03/2023 NOLASCO FIBRO SURE( R) PLUS bilirubin, total 0.9 mg/dL 0.0-1. 2 Not Available [facility] ([facility]) [address] [place], [address], 04/19/2023 11:14:10 04/02/19 24 04/03/2023 NOLASCO FIBRO SURE( R) PLUS GGT 61 IU/L 0-65 Not Available [facility] ([facility]) [address] [place], [address], 04/19/2023 11:14:10 04/02/19 24 04/03/2023 NOLASCO FIBRO SURE( R) PLUS ALT (SGPT) p5p 131 IU/L 0-55 above high normal Not Available [facility] ([facility]) [address] [place], [address], 04/19/2023 11:14:10 04/02/19 24 04/03/2023 NOLASCO FIBRO SURE( R) PLUS AST (SGOT) p5p 108 IU/L 0-40 above high normal Not Available [facility] ([facility]) [address] [place], [address], 04/19/2023 11:14:10 04/02/19 24 04/03/2023 NOLASCO FIBRO SURE( R) PLUS cholesterol, total 246 mg/dL 100-19 9 above high normal Not Available [facility] ([facility]) [address] [place], [address], 04/19/2023 11:14:10 04/02/19 24 04/03/2023 NOLASCO FIBRO SURE( R) PLUS glucose, serum 83 mg/dL 70-99 Not Available [facility] ([facility]) [address] [place], [address], 04/19/2023 11:14:10 04/02/19 24 04/03/2023 NOLASCO FIBRO SURE( R) PLUS triglyceride s 184 mg/dL 0-149 above high normal Not Available [facility] ([facility]) [address] [place], [address], 04/19/2023 11:14:10 04/02/19 24 04/03/2023 CBC, PLATE LET, NO DIFFE RENTI AL WBC 5.5 x10e3 /uL 3.4-10 .8 Not Available [facility] ([facility]) [address] [place], [address], 04/19/2023 11:14:12 04/02/19 24 04/03/2023 CBC, PLATE LET, NO DIFFE RENTI AL RBC 5.16 x10e6 /uL 4.14-5 .80 Not Available [facility] ([facility]) [address] [place], [address], 04/19/2023 11:14:12 04/02/19 24 04/03/2023 CBC, PLATE LET, NO DIFFE RENTI AL hemoglobin 16.7 g/dL 13.0-1 7.7 Not Available [facility] ([facility]) [address] [facility], [place], [address], 04/19/2023 11:14:12 04/02/19 24 04/03/2023 CBC, PLATE LET, NO DIFFE RENTI AL hematocrit 48.4 % 37.5-5 1.0 Not Available [facility] ([facility]) [address] [facility], [place], [address], 04/19/2023 11:14:12 04/02/19 24 04/03/2023 CBC, PLATE LET, NO DIFFE RENTI AL MCV 94 fL 79-97 Not Available [facility] ([facility]) [address] [facility], [place], [address], 04/19/2023 11:14:12 04/02/19 24 04/03/2023 CBC, PLATE LET, NO DIFFE RENTI AL MCH 32.4 pg 26.6-3 3.0 Not Available [facility] ([facility]) [address] [facility], [place], [address], 04/19/2023 11:14:12 04/02/19 24 04/03/2023 CBC, PLATE LET, NO DIFFE RENTI AL MCHC 34.5 g/dL 31.5-3 5.7 Not Available [facility] ([facility]) [address] [facility], [place], [address], 04/19/2023 11:14:12 04/02/19 24 04/03/2023 CBC, PLATE LET, NO DIFFE RENTI AL RDW 13.3 % 11.6-1 5.4 Not Available [facility] ([facility]) [address] [facility], [place], [address], 04/19/2023 11:14:12 04/02/19 24 04/03/2023 CBC, PLATE LET, NO DIFFE RENTI AL platelets 167 x10e3 /uL 150-45 0 Not Available [facility] ([facility]) [address] [facility], [place], [address], 04/19/2023 11:14:12 04/02/19 24 04/03/2023 CBC, PLATE LET, NO DIFFE RENTI AL NRBC SELLING MANAGER Not Available [facility] ([facility]) [address] [facility], [place], [address], 04/19/2023 11:14:12 04/02/19 24 04/03/2023 HEPAT IC FUNCT ION PANEL (7) protein, total 9.5 g/dL 6.0-8. 5 above high normal Not Available [facility] ([facility]) [address] [facility], [place], [address], 04/19/2023 11:14:13 04/02/19 24 04/03/2023 HEPAT IC FUNCT ION PANEL (7) albumin 4.8 g/dL 3.8-4. 8 Not Available [facility] ([facility]) [address] [facility], [place], [address], 04/19/2023 11:14:13 04/02/19 24 04/03/2023 HEPAT IC FUNCT ION PANEL (7) bilirubin, total 0.9 mg/dL 0.0-1. 2 Not Available [facility] ([facility]) [address] [facility], [place], [address], 04/19/2023 11:14:13 04/02/19 24 04/03/2023 HEPAT IC FUNCT ION PANEL (7) bilirubin, direct 0.25 mg/dL 0.00-0 .40 Not Available [facility] ([facility]) [address] [facility], [place], [address], 04/19/2023 11:14:13 04/02/19 24 04/03/2023 HEPAT IC FUNCT ION PANEL (7) alkaline phosphatase 107 IU/L 44-121 Not Available [facility] ([facility]) [address] [facility], [place], [address], 04/19/2023 11:14:13 04/02/19 24 04/03/2023 HEPAT IC FUNCT ION PANEL (7) AST (SGOT) 97 IU/L 0-40 above high normal Not Available [facility] ([facility]) [address] [facility], [place], [address], 04/19/2023 11:14:13 04/02/19 24 04/03/2023 HEPAT IC FUNCT ION PANEL (7) ALT (SGPT) 106 IU/L 0-44 above high normal Not Available [facility] ([facility]) [address] [facility], [place], [address], 04/19/2023 11:14:13 04/02/19 24 04/02/2023 A1A, QUANT +OH TYPE( RFX PHENO ) additional information: COMMEN T Addit ional Clini dean Infor matio n: Alpha -1 antit rypsi n defic iency is an autos omal reces sive metab olic disor abhinav with varia ble sever ity and age at onset . Signs and sympt oms may inclu de incre ased risk for chron ic obstr uctiv e lung disea se that typic ally manif ests after age 30, liver disea se, and liver cance r. Liver disea se can be prese nt in infan cy as neona lazarus maribeth stasi s (denise dice) or in adult ha as cirrh osis and fibro sis. Lung and liver disea se may be accel erate d by envir onmen lazarus expos ures such as smoki ng and exces sive alcoh ol use. Estab lishe d treat ments for COPD and emphy sema are used to treat lung disea se; lung and/o r liver trans plant ation may be an optio n for those with with sever e disea se. Intra venou s augme ntati on thera py may be avail able for patie nts who meet crite rudi. Comme nts: The ZZ and SZ genot ypes accou nt for more than 95% of indiv idual s with sever e alpha -1 antit rypsi n defic iency . To rule out other varia nts, furth er testi ng of sympt omati c indiv idual s heter ozygo us for one varia nt (S or Z) or with negat pepe resul ts may inclu de pheno typin g (PI typin g), AAT level testi ng, and/o r expan ded genot yping . Nilo ic couns john is recom abdelrahman d to discu ss the poten tial clini dean impli catio ns of posit pepe resul ts, as well as recom menda tions for testi ng famil y membe rs. Nilo ic Coord inato rs are avail able for healt h care provi ders to discu ss resul ts at [phone] Test Detai ls: Two varia nts christopher zed: c.109 6 G>A (p.Gl u366L ys), commo nly refer red to as the Z allel e or PI*Z c.863 A>T (p.Gl u288V al), commo nly refer red to as the S allel e or PI*S Metho ds/Li mitat ions: DNA christopher sis of the S and Z allel es in the SERPI NA1 gene ([id number]) was perfo rmed by multi plex allel e-spe cific PCR ampli ficat ion follo wed by gel elect ropho resis . Resul ts must be combi kali with clini dean infor matio n for the most accur ate inter preta tion. Molec ular- based testi ng is highl y accur ate, but as in any labor atory test, rare diagn ostic error s may occur . False posit eppe or false negat pepe resul ts may occur for reaso ns that inclu de nilo ic varia nts, blood trans fusio ns, bone marro w trans plant ation , somat ic or tissu e-spe cific mosai cism, misla beled sampl es, or yamila eous repre senta tion of famil y relat ionsh ips. This test was devel oped and its perfo rmanc e nasim cteri stics deter mined by [facility]. It has not been clear ed or appro narinder by the Food and Drug Admin istra tion. Refer ences : Flory wang RA, Duke o G, Rk ly ML, Sole s M, Cross CE, Nava an K, Awilda cox DK, Gayathri t SL, Dioni s JM, Yuval pittman JK, Ronal mae C, Mary Jade. The Diagn osis and Manag ement of Alpha -1 Antit rypsi n Defic iency in the Adult . Chron ic Obstr Pulm Dis. 2016 Aug 15;3(3 ):668 -682. doi: 10.15 326/j copdf .3.32014. 0182. PMID: 48370 891; PMCID : PMC55 24144 . Yuval GRIFFITH, Glynn burton V, Monroe SANTOS. Alpha -1 Antit rypsi n Defic iency . 2005Jan 05 [Upda bhavesh 2019July 30]. In: Franklin MP, Lane coreas HH, Severino MEADOWS, et al., kanwal rs. GeneR james sams(R) [Inte rnet] . Girish dawson ([place]): [facility] Girish Segura; 1992- 2020. Avail able from: https ://dean w.ncb i.nlm .nih. gov/b ooks/ NBK15 19/ Not Available [facility] ([facility]) [address] [place], [address], 04/19/2023 11:14:14 04/02/19 24 04/04/2023 A1A, QUANT +OH TYPE( RFX PHENO ) [id number]-[id number]-mafo trypsin, serum 165 mg/dL 101-18 7 Not Available [facility] ([facility]) [address] [place], [address], 04/19/2023 11:14:14 04/02/19 24 04/10/2023 A1A, QUANT +OH TYPE( RFX PHENO ) aat, DNA analysis COMMEN Kenny Cam t: c.109 6 G>A (p.Gl u366L ys), Z allel e - Not detec bhavesh c.863 A>T (p.Gl u288V al), S allel e - Not detec bhavesh Not assoc iated with incre ased risk of devel oping clini koki relev ant sympt oms of alpha -1 antit rypsi n defic iency . See Addit ional Clini dean Infor matio n and Comme nts. Not Available [facility] ([facility]) [address] [facility], [place], [address], 04/19/2023 11:14:14 04/02/19 24 04/10/2023 A1A, QUANT +OH TYPE( RFX PHENO ) electronical ly signed by: CINDA MORFIN, PHD Not Available [facility] ([facility]) [address] [place], [address], 04/19/2023 11:14:14 04/02/19 24 04/10/2023 A1A, QUANT +OH TYPE( RFX PHENO ) a1a rfx to phenotype NOT INDICA BHAVESH Not Available [facility] ([facility]) [address] [facility], [place], [address], 04/19/2023 11:14:14 04/02/19 24 04/03/2023 ACUTE HEPAT ITIS hep A Ab, IgM NEGATI VE negati ve Not Available [facility] ([facility]) [address] [place], [address], 04/19/2023 11:14:15 04/02/19 24 04/03/2023 ACUTE HEPAT ITIS HBsAg screen NEGATI VE negati ve Not Available [facility] ([facility]) [address] [place], [address], 04/19/2023 11:14:15 04/02/19 24 04/03/2023 ACUTE HEPAT ITIS hep B core Ab, IgM NEGATI VE negati ve Not Available [facility] ([facility]) [address] [facility], [place], [address], 04/19/2023 11:14:15 04/02/19 24 04/03/2023 ACUTE HEPAT ITIS HCV Ab NON REACTI VE non reacti ve Not Available [facility] ([facility]) [address] [facility], [place], [address], 04/19/2023 11:14:15 04/02/19 24 04/03/2023 ACUTE HEPAT ITIS interpretati on: COMMEN T Not infec bhavesh with HCV unles s early or acute infec tion is suspe cted (whic h may be delay ed in an immun ocomp romis ed indiv idual ), or other evide nce exist s to indic ate HCV infec tion. Not Available [facility] ([facility]) [address] [facility], [place], [address], 04/19/2023 11:14:15 04/02/19 24 04/03/2023 PROTH ROMBI N TIME (PT), SERIA L INR 1.1 0.9-1. 2 Refer ence inter toby is for non-a ntico agula bhavesh patie nts. Sugge sted INR thera peuti c range for Vitam in K antag onist thera py: Stand joy Dose (mode rate inten sity thera peuti c range ): 2.0 - 3.0 Highe r inten sity thera peuti c range 2.5 - 3.5 Not Available [facility] ([facility]) [address] [facility], [place], [address], 04/19/2023 11:14:16 04/02/19 24 04/03/2023 PROTH ROMBI N TIME (PT), SERIA L prothrombin time 12.0 sec 9.1-12 .0 Not Available [facility] ([facility]) [address] [facility], [place], [address], 04/19/2023 11:14:16 04/02/19 24 04/03/2023 PROTH PARAS N TIME (PT), SERIA L pdf . Not Available [facility] ([facility]) [address], [place], [address], 04/19/2023 11:14:16 04/02/19 24 04/18/2023 HERED .HEMO CHROM ATOSI S, DNA hereditary hemochromato sis COMMEN T Resul t: c.845 G>A (p.Cy s282T yr) - Not Detec bhavesh c.187 C>G (p.Hi s63As p) - Not Detec bhavesh c.193 A>T (p.Se r65Cy s) - Not Detec bhavesh Not assoc iated with incre ased risk to devel op clini dean sympt oms of Hered itary Hemoc hroma tosis . In sympt omati c indiv idual s, other cause s of iron overl oad shoul d be evalu ated. See Addit ional Infor matio n and Comme nts. Addit ional Clini dean Infor matio n: Hered itary hemoc hroma tosis (HFE relat ed) is an autos omal reces sive iron stora ge disor abhinav. Patie nts may have a nilo ic diagn osis of hered itary hemoc hroma tosis and never show clini dean sympt oms. Clini dean sympt oms typic ally appea r betwe en 40 to 60 years in males and after menop ause in femal es. Signs and sympt oms may inclu de organ damag e, prima rily in the liver , risk for hepat ocell ular carci noma, diabe margaret, and heart disea se due to iron accum ulati on. Life expec tancy may be decre ased in indiv idual s who devel op cirrh osis. Treat ment for clini koki sympt omati c indiv idual s may inclu de thera peuti c phleb otomy . Liver trans plant may be used to treat end stage liver failu re. For preve ntive care, monit oring for iron overl oad is recom abdelrahman d for patie nts who are homoz ygous for c.845 G>A (p.Cy s282T yr) and have yet to exper ience clini dean sympt oms. Comme nts: The most commo n HFE varia nts assoc iated with hered itary hemoc hroma tosis are c.845 G>A (p.Cy s282T yr), c.187 C>G (p.Hi s63As p), c.193 A>T (p.Se r65Cy s). While patie nts homoz ygous for c.845 G>A (p.Cy s282T yr) are the most likel y to prese nt clini dean sympt oms, less than 10% devel op clini koki signi fican t iron overl oad with tissu e and organ damag e. Nilo ic couns john is recom abdelrahman d to discu ss the poten tial clini dean impli catio ns of posit pepe resul ts, as well as recom menda tions for testi ng famil y membe rs. Nilo ic Coord inato rs are avail able for healt h care provi ders to discu ss resul ts at [phone] ([phone] Test Detai ls: Three varia nts christopher zed: c.845 G>A (p.Cy s282T yr), commo nly refer red to as C282Y c.187 C>G (p.Hi s63As p), commo nly refer red to as H63D c.193 A> T (p.Se r65Cy s), commo nly refer red to as S65C Metho ds/Li mitat ions: DNA Christopher sis of the HFE gene ([id number]) was perfo rmed by PCR ampli ficat ion follo wed by restr ictio n enzym e diges tion christopher ses. Resul ts must be combi kali with clini dean infor matio n for the most accur ate inter preta tion. Molec ular- based testi ng is highl y accur ate, but as in any labor atory test, diagn ostic error s may occur . False posit pepe or false negat pepe resul ts may occur for reaso ns that inclu de nilo ic varia nts, blood trans fusio ns, bone marro w trans plant ation , somat ic or tissu e-spe cific mosai cism, misla beled sampl es, or yamila eous repre senta tion of famil y relat ionsh ips. This test was devel oped and its perfo rmanc e nasim cteri stics deter mined by [facility] . It has not been clear ed or appro narinder by the Food and Drug Admin istra tion. Refer ences : Jesús BR, Yayo PC, Komarijal ey KV, Anselmo santiago LW, Sarah santiago ; Ameri can Assoc iatio n for the Study of Liver Disea ses. Diagn osis and manag ement of hemoc hroma tosis : 2010 pract ice guide line by the Ameri can Assoc iatio n for the Study of Liver Disea ses. Hepat ology . 2010;5 4(1): 328-4 3. doi: 10.10 / p.243 30. PMID: 71943 290; PMCID : PMC31 04881 . Robert G, Shabana ot P, Brandon pike DW, Martha r H, Asa singhn O, Rosana n S, Allaura o I, Mickey s M, Nicholas y S. EMQN best pract ice guide lines for the molec ular nilo ic diagn osis of hered itary hemoc hroma tosis (HH). Eur J Hum Nilo . 2016 Jun;2 4(4): 479-9 5. doi: 10.10 38/ej hg.20 15.12 8. Epub 2014Sep 16. PMID: 90185 218; PMCID : PMC49 91139 . Not Available [facility] ([facility]) [address], [place], [address], 04/19/2023 11:14:18 04/02/19 24 04/18/2023 HERED .HEMO CHROM ATOSI S, DNA reviewed by: FAITH [employer] [place] nent perfo rmed at [facility] RTP Profe ssion al [place] nent perfo rmed by: Marcell lieberman, Ph.D. , [facility] [employer], Molec ular Nilo ics [address] [place] [address] Not Available [facility] ([facility]) [address] [facility], [place], [address], 04/19/2023 11:14:18 04/02/19 24 04/03/2023 AFP, SERUM , TUMOR MARKE R AFP, serum, tumor marker 2.2 NG/mL 0.0-8. 4 Michelle Diagn ostic s Elect michelle milum inesc ence Immun oassa y (ECLI A) Value s obtai kali with diffe rent assay metho ds or kits canno t be used inter lewis eably . Resul ts canno t be inter prete d as absol j carlos evide nce of the prese nce or absen ce of [facility] se. This test is not inter preta ble in pregn ant femal es. Not Available [facility] ([facility]) [address] [facility], [place], [address], 04/19/2023 11:14:19 04/02/19 24 04/03/2023 HEPAT ITIS B SURF AB QUANT hepatitis B surf Ab quant 3.3 mIU/m L immuni ty>9.9 below low normal Statu s of Immun ity Anti- HBs Level ----- ----- ----- --- ----- ----- ---- Incon siste nt with Immun ity 0.0 - 9.9 Consi stent with Immun ity >9.9 Not Available [facility] ([facility]) [address] [facility], [place], [address], 04/19/2023 11:14:20 04/02/19 24 04/03/2023 ACTIN (SMOO TH MUSCL E) ANTIB LEANDRO actin (smooth muscle) antibody 43 units 0-19 above high normal Negat pepe 0 - 19 Weak posit pepe 20 - 30 Moder ate to stron g posit pepe >30 Actin Antib odies are found in 52-85 % of patie nts with autoi mmune hepat itis or chron ic activ e hepat itis and in 22% of patie nts with prima ry bilia ry cirrh osis. Not Available [facility] ([facility]) [address] [place], [address], 04/19/2023 11:14:21 04/02/19 24 04/03/2023 MITOC HONDR IAL (M2) ANTIB LEANDRO mitochondria l (M2) antibody <20.0 units 0.0-20 .0 Negat pepe 0.0 - 20.0 Equiv ocal 20.1 - 24.9 Posit pepe >24.9 Mitoc hondr ial (M2) Antib odies are found in 90-96 % of patie nts with prima ry bilia ry cirrh osis. Not Available [facility] ([facility]) [address] [place], [address], 04/19/2023 11:14:22 04/02/19 24 04/03/2023 GONZALO W/REF SALIMA GONZALO direct POSITI VE negati ve abnormal Not Available [facility] ([facility]) [address] [place], [address], 04/19/2023 11:14:23 04/02/19 24 04/03/2023 GONZALO W/REF SALIMA anti-DNA (ds) Ab qn 27 IU/mL 0-9 above high normal Negat pepe <5 Equiv ocal 5 - 9 Posit pepe >9 Not Available [facility] ([facility]) [address] [place], [address], 04/19/2023 11:14:23 04/02/19 24 04/03/2023 GONZALO W/REF SALIMA kitman antibodies 0.8 ai 0.0-0. 9 Not Available [facility] ([facility]) [address] [place], [address], 04/19/2023 11:14:23 04/02/19 24 04/03/2023 GONZALO W/REF SALIMA carpio antibodies <0.2 ai 0.0-0. 9 Not Available [facility] ([facility]) [address] [place], [address], 04/19/2023 11:14:23 04/02/19 24 04/03/2023 GONZALO W/REF SALIMA antisclerode rma-70 antibodies 0.2 ai 0.0-0. 9 Not Available [facility] ([facility]) [address] [place], [address], 04/19/2023 11:14:23 04/02/19 24 04/03/2023 GONZALO W/REF SALIMA sjogren's anti-ss-A <0.2 ai 0.0-0. 9 Not Available [facility] ([facility]) [address] [place], [address], 04/19/2023 11:14:23 04/02/19 24 04/03/2023 GONZALO W/REF SALIMA sjogren's anti-ss-B <0.2 ai 0.0-0. 9 Not Available [facility] ([facility]) [address] [place], [address], 04/19/2023 11:14:23 04/02/19 24 04/03/2023 GONZALO W/REF SALIMA thyroid peroxidase (tpo) Ab 170 IU/mL 0-34 above high normal Not Available [facility] ([facility]) [address] [place], [address], 04/19/2023 11:14:23 04/02/19 24 04/03/2023 GONZALO W/REF SALIMA antichromati n antibodies 6.0 ai 0.0-0. 9 above high normal Not Available [facility] ([facility]) [address] [place], [address], 04/19/2023 11:14:23 04/02/19 24 04/03/2023 GONZAOL W/REF SALIMA anti-centrom ere B antibodies <0.2 ai 0.0-0. 9 Not Available [facility] ([facility]) [address] [place], [address], 04/19/2023 11:14:23 04/02/19 24 04/05/2023 GONZALO W/REF SALIMA complement C3, serum 155 mg/dL 82-167 Not Available [facility] ([facility]) [address] [place], [address], 04/19/2023 11:14:23 04/02/19 24 04/05/2023 GONZALO W/REF SALIMA complement C4, serum 16 mg/dL 12-38 Not Available [facility] ([facility]) [address] [place], [address], 04/19/2023 11:14:23 04/02/19 24 04/05/2023 GONZALO W/REF SALIMA rheumatoid factor (rf) 12.2 IU/mL <14.0 Not Available [facility] ([facility]) [address] [facility], [place], [address], 04/19/2023 11:14:23 04/02/19 24 04/05/2023 GONZALO W/REF SALIMA anti-ccp Ab, IgG/IgA 14 units 0-19 Negat pepe <20 Weak posit pepe 20 - 39 Moder ate posit pepe 40 - 59 Stron g posit pepe >59 Not Available [facility] ([facility]) [address] [place], [address], 04/19/2023 11:14:23 04/02/19 24 04/05/2023 GONZALO W/REF SALIMA anticardioli pin Ab,IgG,qn 15 gpl_U /mL 0-14 above high normal Negat pepe: <15 Indet ermin ate: 15 - 20 Low-M ed Posit pepe: >20 - 80 High Posit pepe: >80 Not Available [facility] ([facility]) [address] [place], [address], 04/19/2023 11:14:23 04/02/19 24 04/05/2023 GONZALO W/REF SALIMA anticardioli pin Ab,IgM,qn 15 mpl_U /mL 0-12 above high normal Negat pepe: <13 Indet ermin ate: 13 - 20 Low-M ed Posit pepe: >20 - 80 High Posit pepe: >80 Not Available [facility] ([facility]) [address] [facility], [place], [address], 04/19/2023 11:14:23 04/02/19 24 04/05/2023 GONZALO W/REF SALIMA anticardioli pin Ab,IgA,qn <9 apl_U /mL 0-11 Negat pepe: <12 Indet ermin ate: 12 - 20 Low-M ed Posit pepe: >20 - 80 High Posit pepe: >80 Not Available [facility] ([facility]) [address] [place], [address], 04/19/2023 11:14:23 04/02/19 24 04/03/2023 IMMUN OGLOB ULIN G, QN, SERUM immunoglobul in g, qn, serum 3136 mg/dL 603-16 13 above high normal Not Available [facility] ([facility]) [address] [place], [address], 04/19/2023 11:14:25 04/02/19 24 04/03/2023 ALPHA -1-AN TITRY PSIN, SERUM pkqiq-4-pohi trypsin, serum 157 mg/dL 101-18 7 Not Available [facility] ([facility]) [address] [place], [address], 04/19/2023 11:14:26 04/02/19 24 04/03/2023 HEP A AB, TOTAL hep A Ab, total POSITI VE negati ve abnormal Comme nt: The HAV total antib leandro assay detec ts both IgG and IgM but does not diffe renti ate betwe en them. A negat pepe resul t sugge sts susce ptibi lity to infec tion. A posit pepe resul t could be due to vacci natio n, previ ously resol narinder infec tion or activ e infec tion. Testi ng for HAV IgM shoul d be perfo rmed if activ e HAV infec tion is suspe cted. [facility] offer s profi les that will autom atica lly refle x posit pepe HAV total antib leandro resul ts to IgM (e.g. , panel #[id number] HAV Antib leandro w/ Rfx). Not Available [facility] ([facility]) [address] [facility], [place], [address], 04/19/2023 11:14:27 04/25/19 24 04/25/2023 BUN BUN 17 mg/dL 7-18 Not Available [facility] ([facility]) [address] [facility] [facility], [place], [address], 04/25/2023 09:27:18 04/25/19 24 04/25/2023 CREAT ININE creatinine 1.0 mg/dL 0.6-1. 3 Not Available [facility] ([facility]) [address] [facility] [facility], [place], [address], 04/25/2023 09:27:20 04/25/19 24 04/25/2023 CREAT ININE glomerular filtration rate TNP mlper min 60- TEST NOT PERFO RMED GFR has only been valid ated from 18 to 70 years of age. Not Available [facility] ([facility]) [address] [facility] [facility], [place], [address], 04/25/2023 09:27:20 08/09/19 24 08/10/2023 COMP. METAB OLIC PANEL (14) glucose 86 mg/dL 70-99 Not Available [facility] ([facility]) [address] [facility], [place], [address], 08/10/2023 11:12:42 08/09/19 24 08/10/2023 COMP. METAB OLIC PANEL (14) BUN 16 mg/dL 8-27 Not Available [facility] ([facility]) [address] [facility] [place], [address], 08/10/2023 11:12:42 08/09/19 24 08/10/2023 COMP. METAB OLIC PANEL (14) creatinine 1.04 mg/dL 0.76-1 .27 Not Available [facility] ([facility]) [address] [place] [place], [address], 08/10/2023 11:12:42 08/09/19 24 08/10/2023 COMP. METAB OLIC PANEL (14) eGFR 75 mL/mi n/1.7 3 >59 Not Available [facility] ([facility]) [address] [facility] [place], [address], 08/10/2023 11:12:42 08/09/19 24 08/10/2023 COMP. METAB OLIC PANEL (14) BUN/creatini ne ratio 15 10-24 Not Available [facility] ([facility]) [address] [facility] [place], [address], 08/10/2023 11:12:42 08/09/19 24 08/10/2023 COMP. METAB OLIC PANEL (14) sodium 137 mmol/ L 134-14 4 Not Available [facility] ([facility]) [address] [facility] [place], [address], 08/10/2023 11:12:42 08/09/19 24 08/10/2023 COMP. METAB OLIC PANEL (14) potassium 4.9 mmol/ L 3.5-5. 2 Not Available [facility] ([facility]) [address] [facility] [place], [address], 08/10/2023 11:12:42 08/09/19 24 08/10/2023 COMP. METAB OLIC PANEL (14) chloride 101 mmol/ L 96-106 Not Available [facility] ([facility]) [address] [facility] [place], [address], 08/10/2023 11:12:42 08/09/19 24 08/10/2023 COMP. METAB OLIC PANEL (14) carbon dioxide, total 24 mmol/ L Not Available [facility] ([facility]) [address], [place], [address], 08/10/2023 11:12:42 08/09/19 24 08/10/2023 COMP. METAB OLIC PANEL (14) calcium 9.8 mg/dL 8.6-10 .2 Not Available [facility] ([facility]) [address] [place], [address], 08/10/2023 11:12:42 08/09/19 24 08/10/2023 COMP. METAB OLIC PANEL (14) protein, total 8.4 g/dL 6.0-8. 5 Not Available [facility] ([facility]) [address] [place], [address], 08/10/2023 11:12:42 08/09/19 24 08/10/2023 COMP. METAB OLIC PANEL (14) albumin 4.3 g/dL 3.8-4. 8 Not Available [facility] ([facility]) [address] [place], [address], 08/10/2023 11:12:42 08/09/19 24 08/10/2023 COMP. METAB OLIC PANEL (14) globulin, total 4.1 g/dL 1.5-4. 5 Not Available [facility] ([facility]) [address] [place], [address], 08/10/2023 11:12:42 08/09/19 24 08/10/2023 COMP. METAB OLIC PANEL (14) A/G ratio 1.0 1.2-2. 2 below low normal Not Available [facility] ([facility]) [address], [place], [address], 08/10/2023 11:12:42 08/09/19 24 08/10/2023 COMP. METAB OLIC PANEL (14) bilirubin, total 1.0 mg/dL 0.0-1. 2 Not Available [facility] ([facility]) [address] [facility], [place], [address], 08/10/2023 11:12:42 08/09/19 24 08/10/2023 COMP. METAB OLIC PANEL (14) alkaline phosphatase 85 IU/L 44-121 Not Available [facility] ([facility]) [address] [facility], [place], [address], 08/10/2023 11:12:42 08/09/19 24 08/10/2023 COMP. METAB OLIC PANEL (14) AST (SGOT) 74 IU/L 0-40 above high normal Not Available [facility] ([facility]) [address] [facility], [place], [address], 08/10/2023 11:12:42 08/09/19 24 08/10/2023 COMP. METAB OLIC PANEL (14) ALT (SGPT) 75 IU/L 0-44 above high normal Not Available [facility] ([facility]) [address] [facility], [place], [address], 08/10/2023 11:12:42 08/09/19 24 08/10/2023 CBC, PLATE LET, NO DIFFE RENTI AL WBC 4.6 x10e3 /uL 3.4-10 .8 Naif ified by repea t christopher sis Not Available [facility] ([facility]) [address] [facility], [place], [address], 08/10/2023 11:12:44 08/09/19 24 08/10/2023 CBC, PLATE LET, NO DIFFE RENTI AL RBC 4.66 x10e6 /uL 4.14-5 .80 Not Available [facility] ([facility]) [address] [place], [address], 08/10/2023 11:12:44 08/09/19 24 08/10/2023 CBC, PLATE LET, NO DIFFE RENTI AL hemoglobin 15.0 g/dL 13.0-1 7.7 Not Available [facility] ([facility]) [address] [facility], [place], [address], 08/10/2023 11:12:44 08/09/19 24 08/10/2023 CBC, PLATE LET, NO DIFFE RENTI AL hematocrit 43.6 % 37.5-5 1.0 Not Available [facility] ([facility]) [address] [facility], [place], [address], 08/10/2023 11:12:44 08/09/19 24 08/10/2023 CBC, PLATE LET, NO DIFFE RENTI AL MCV 94 fL 79-97 Not Available [facility] ([facility]) [address] [facility], [place], [address], 08/10/2023 11:12:44 08/09/19 24 08/10/2023 CBC, PLATE LET, NO DIFFE RENTI AL MCH 32.2 pg 26.6-3 3.0 Not Available [facility] ([facility]) [address] [facility], [place], [address], 08/10/2023 11:12:44 08/09/19 24 08/10/2023 CBC, PLATE LET, NO DIFFE RENTI AL MCHC 34.4 g/dL 31.5-3 5.7 Not Available [facility] ([facility]) [address] [place], [address], 08/10/2023 11:12:44 08/09/19 24 08/10/2023 CBC, PLATE LET, NO DIFFE RENTI AL RDW 14.0 % 11.6-1 5.4 Not Available [facility] ([facility]) [address] [place], [address], 08/10/2023 11:12:44 08/09/19 24 08/10/2023 CBC, PLATE LET, NO DIFFE RENTI AL platelets 138 x10e3 /uL 150-45 0 below low normal Not Available [facility] ([facility]) [address], [place], [address], 08/10/2023 11:12:44 08/09/19 24 08/10/2023 CBC, PLATE LET, NO DIFFE RENTI AL NRBC SELLING MANAGER Not Available [facility] ([facility]) [address], [place], [address], 08/10/2023 11:12:44 04/10/19 24 04/10/2023 US, liver [facility] [address] [place] [address] Phone: Fax: Name: HERO PATINO Exam Date: 024 : [birth year] Age 72 Gender : M Access ion: [id number] Physic rudy: BRONWYN BLANCO Facili ty: [facility] Facili ty HSV: Outpat ient Exam: LIVER ULTRAS OUND RIGHT UPPER QUADRA NT ULTRAS OUND: Histor y: Elevat ed liver enzyme s Ultras ound images of right upper quadra nt were obtain ed. Limite d images of the pancre as are obscur ed by bowel gas. The liver parenc hyma is normal echoge nicity . The gallbl adder is well-v isuali zed and the wall appear s normal . There are no gallst ones. The common duct is normal . Limite d images of right kidney demons trate a septat ed cyst measur ing 3.9 x 3.4 x 3.7 cm. IMPRES [place]: Septat ed right renal cyst measur ing up to 3.9 cm. Recomm end follow -up renal mass protoc ol CT or ultras ound. Images review ed, interp reted, and dictat ed by Chantal Durand D.O. Transc ribed by Gerald sams PA-C Dictat ed By: CHANTAL DURAND Transc ribed By: Chantal Durand Transc ribed On: 10:30 AM Electr onical ly signed by: CHANTAL DURAND Thank you for referr leighann HERO PATINO to [facility]. Legall y authen ticate d by POPE CHANTAL Napier 04-10 10:30: 03 CC'ed Logic: Orderi ng Provid er: [place] Attend ing Provid er: [place] Admitt ing Provid er: [place] [email or web address] [facility] [address] [facility] [facility], [place], [address], 04/13/2023 17:41:14 04/25/19 24 04/25/2023 CT ABD w/w/O [facility] [address] [place] [address] Phone: Fax: Name: HERO PATINO Exam Date: : [birth year] Age 72 Gender : M Access ion: [id number] Physic rudy: BRONWYN BLANCO Facili ty: [facility] [facility] Facili ty HSV: Outpat ient Exam: CT ABD W/W/O CT scan of the abdome n with and withou t contra st. HISTOR Y: Renal lesion s. PROCED URE: The patien t was inject ed with 100 ml Isovue . Precon trast images were also obtain ed. Axial images were obtain ed from the lung bases to the iliac crest by comput ed tomogr aphy. FINDIN GS: ABDOME N: The lung bases demons trate a 3 mm right lower lobe pulmon octavio nodule on image 4. There is eviden ce of old granul omatou s diseas e. The heart is normal in size. The liver is diffus carolann fatty infilt rated. The spleen is unrema rkable . No adrena l mass is presen t. The pancre as is normal . The kidney s demons trate a nonenh ancing mass measur ing 4 cm in the life insurance specialist ior right kidney . There is also a 1.[address] nonenh ancing mass in the life insurance specialist ior left kidney . A 5 mm lesion in the latera l right kidney is too small to charac terize . There are promin ent periao rtic and perica toby lymph nodes measur ing up to 1.2 cm. Correl ate clinic ally. There is athero sclero sis. There appear s to be a 1.2 cm saccul ar aneury sm below the renal arteri es. The aorta is otherw ise normal in calibe r. IMPRES [place]: 1. Simple appear ing renal cysts. 2. Promin ent periao rtic and perica toby lymph nodes. Correl ate clinic ally. 3. Fatty infilt ration of the liver. 4. 4 mm right lower lobe lung nodule . One-ye ar follow -up chest CT recomm ended. Films review ed , interp reted and dictat ed by Dr.Pop manzo Transc ribed by Cameron Mix PA-C. Dictat ed By: CHANTAL DURAND Transc ribed By: Chantal Durand Transc ribed On: 11:35 AM Electr onical ly signed by: CHANTAL DURAND Thank you for referr HERO Arzola to [facility]. Legall y authen ticate d by POPE CHANTAL Napier 04-25 11:35: 24 CC'ed Logic: Orderi ng Provid er: BL[place] Attend ing Provid er: [place] Admitt ing Provid er: BL[place]CO [place] [email or web address] [facility] [address] [place] [address], [place], [address], 04/27/2023 14:25:16 08/15/19 24 08/15/2023 CT BX of liver -need le [facility] [address] [place] [address] Phone: Fax: Name: HERO PATINO Exam Date: 08/15/19 24 : [birth year] Age 72 years Gender : M Access ion: [id number] Physic rudy: BRON[place] BLANCO [place] Facili ty: [facility] Facili ty HSV: Outpat ient Exam: CT BX OF LIVER- NEEDLE CT LIVER BIOPSY Dictat ed By: CHANTAL DURAND Transc ribed By: Chantal Durand Transc ribed On: 08/15/19 9:11 AM Electr onical ly signed by: CHANTAL DURAND 08/15/[address] LIVER BIOPSY CLINIC AL HISTOR Y: Abnorm al liver functi on studie s PROCED URE: After inform ed consen t was obtain ed approp riate time-o ut proced ure was perfor med CT imagin g was obtain ed for locali zation purpos es for liver biopsy . The skin was preppe d and draped in usual steril e fashio n. The skin was anesth etized with 1% lidoca ine. A guide needle was placed from a right latera l approa ch. 2 18 gauge 3 cm core biopsy passes were obtain ed. The patien t tolera bhavesh the proced ure well withou t compla ints or compli cation s. IMPRES [place]: CT-lacho ded liver biopsy as detail ed above withou t compla ints or compli cation s. PROCED URAL SEDATI ON: Mild proced ural sedati on was perfor med utiliz ing 1 mg of Versed and 50 mcg of fentan yl. FILMS REVIEW ED AND INTERP RETED BY DR. CHANTAL DURAND. TRANSC RIBED BY CAMERON MIX PAC. Dictat ed By: CHANTAL DURAND Dictat ed Date: 08/15/19 9:17:2 0 AM Electr onical ly signed by: CHANTAL DURAND 08/15/19 Thank you for referr HERO Arzola to [facility] it Hospit al. Legall y authen ticate d by POPE CHANTAL Napier 2023-08-14 09:11: 59 CC'ed Logic: Orderi ng Provid er: BL[place]CO [place] Attend ing Provid er: BLANCO [place] Referr ing Provid er: BL[place]CO [place] Admitt ing Provid er: BLANCO [place] [facility] [address] [facility], [place], [address], 08/22/2023 12:59:58 08/15/19 24 08/15/2023 CT BX of liver -need le [facility] Hospit [facility] [address] [place] [address] Phone: Fax: Name: HERO PATINO Exam Date: 08/15/19 : [birth year] Age 72 years Gender : M Access ion: [id number] Physic rudy: [place] Facili ty: [facility] Facili ty HSV: Outpat ient Exam: CT BX OF LIVER- NEEDLE CT LIVER BIOPSY Dictat ed By: CHANTAL DURAND Transc ribed By: Chantal Durand Transc ribed On: 08/15/19 9:11 AM Electr onical ly signed by: CHANTAL DURAND 08/15/[address] LIVER BIOPSY CLINIC AL HISTOR Y: Abnorm al liver functi on studie s PROCED URE: After inform ed consen t was obtain ed approp riate time-o ut proced ure was perfor med CT imagin g was obtain ed for [facility]i [facility] purpos es for liver biopsy . The skin was preppe d and draped in usual steril e fashio n. The skin was anesth etized with 1% lidoca ine. A guide needle was placed from a right latera l approa ch. 2 18 gauge 3 cm core biopsy passes were obtain ed. The patien t tolera bhavesh the proced ure well withou t compla ints or compli cation s. IMPRES [place]: CT-lacho ded liver biopsy as detail ed above withou t compla ints or compli cation s. PROCED URAL SEDATI ON: Mild proced ural sedati on was perfor med utiliz ing 1 mg of Versed and 50 mcg of fentan yl. FILMS REVIEW ED AND INTERP RETED BY DR. CHANTAL DURAND. TRANSC RIBED BY TAISHA GUZMAN. Dictat ed By: CHANTAL DURAND Dictat ed Date: 08/15/19 9:17:2 0 AM Electr onical ly signed by: CHANTAL DURAND 08/15/19 Thank you for referr ing HERO PATINO to [facility]. Legall y authen ticate d by POPE CHANTAL Napier 2023-0 08-14 09:17: 20 CC'ed Logic: Orderi ng Provid er: [place] Attend ing Provid er: [place] Referr ing Provid er: [place] Admitt ing Provid er: [place] [email or web address] [facility] [address], [place], [address], 08/22/2023 12:59:58 Result Notes None recorded. Problems Name Problem SNOMED Code Status Onset Date Resolution Date Notes Provider Name and Address Organization Details Recorded Time Constipation 91761307 Active 2022 Barrera Rodney PA-C [address] [facility], [place], [address] , [facility] & [place] 3 09:28:37 Problem Notes None recorded. Procedures Surgical History Date Name Laterality Status Provider Name and Address Organization Details Recorded Time 4 Procedure Note completed BRIAN BLANCO MSN, METAL FILER, TIRE TRIMMER HAND-C [address] [facility], [place], [address], [place] - [facility] - [place] & [place] 08/09/2023 09:21:29 4 Procedure Note completed BRIAN BLANCO MSN, METAL FILER, TIRE TRIMMER HAND-C [address] [facility], [place], [address], [place] - [facility] - [place] & [place] 05/14/2023 09:32:45 4 Procedure Note completed BRIAN BLANCO MSN, METAL FILER, TIRE TRIMMER HAND-C [address] [facility], [place], [address], [place] - [facility] - [place] & [place] 04/02/2023 11:35:51 hernia repair completed Emma Ramirez [place] - [facility] - [place] & [place] 09/13/2022 08:53:22 Imaging Results Imaging Date Name Status [facility]Modified by [facility] Details LastModified Time 04/10/2023 US, liver completed [facility] [address], [place], [address], 04/13/2023 17:41:14 04/25/2023 CT ABD w/w/O completed [email or web address] [facility] [address], [place], [address], 04/27/2023 14:25:16 08/15/2023 CT BX of liver-needl e completed [email or web address] [facility] [address], [place], [address], 08/22/2023 12:59:58 08/15/2023 CT BX of liver-needl e completed [email or web address] [facility] [address] [place], [address], 08/22/2023 12:59:58 Procedure Notes None recorded. Medical Equipment None Reported. Allergies No known drug allergies Medications Name Sig Start Date Stop Date Status Note LastModified by Organization Details LastModified Time amoxicillin 500 mg capsule 09/13 completed Not Available Not Available Not Available atorvastati n 40 mg tablet 04/02 completed Not Available Not Available Not Available hydrocodone 5 mg-acetamin ophen 325 mg tablet 04/02 completed Not Available Not Available Not Available amlodipine 5 mg tablet active Not Available Not Available Not Available bisoprolol fumarate 5 mg tablet active Not Available Not Available No t Available famotidine 20 mg tablet Take 1 tablet every day by oral route for 90 days. 04/02 completed Not Available Not Available Not Available tamsulosin 0.4 mg capsule active Not Available Not Available Not Available pravastatin 20 mg tablet 04/02 completed Not Available Not Available Not Available Baby Aspirin 81 mg chewable tablet Chew 1 tablet every day by oral route. active Not Available Not Available No t Available polyethylen e glycol 3350 17 gram/dose oral powder Take 17 g every day by oral route for 30 days. 04/02 completed Not Available Not Available Not Available escitalopra m 10 mg tablet 04/02 completed Not Available Not Available Not Available ranolazine ER 500 mg tablet,exte nded release,12 hr active Not Available Not Available Not Available Gavilyte-C 240 gram-22.72 gram-6.72 gram-5.84 gram oral solution as directed orally 8 oz q15 until empty per office direction s 09/13 completed Not Available Not Available Not Available GaviLyte-G 236 gram-22.74 gram-6.74 gram-5.86 gram oral solution 09/13 completed Not Available Not Available Not Available Repatha SureClick 140 mg/mL subcutaneou s pen injector INJECT 140 MG UNDER THE SKIN ONCE EVERY 2 WEEKS active Not Available Not Available No t Available Vitals Date Recorded Body weight Systolic blood pressure Diastolic blood pressure Provider Name and Address Organization Details Last Updated DateTime 03/15/2022 83915.48 g 137 mm[Hg] 84 mm[Hg] Jovanna Hood [facility] & [place] 03/15/2022 09:18:03 Date Recorded Body weight Body mass index (BMI) Body height Body temperature Oxygen saturation Oxygen saturation in Arterial blood by Pulse oximetry Systolic blood pressure Diastolic blood pressure Provider Name and Address Organization Details Last Updated DateTime 3 50516.6 5 g 25.3 kg/m2 175.26 cm 98.2 [degF] 97 % 97 % 134 mm[Hg] 81 mm[Hg] Emma Ramirez [facility] & [place] 3 08:57:20 Date Recorded Body height Body mass index (BMI) Body weight Body temperature Oxygen saturation Oxygen saturation in Arterial blood by Pulse oximetry Heart rate Heart rate Systolic blood pressure Diastolic blood pressure Provider Name and Address Organization Details Last Updated DateTime 4 175.26 cm 27.1 kg/m2 89146.9 2 g 97.5 [degF] 99 % 99 % 63 /min 59 /min 164 mm[Hg] 87 mm[Hg] Naz Sung [facility] & [place] 4 09:42:18 Date Recorded Body height Body mass index (BMI) Body weight Body temperature Oxygen saturation Oxygen saturation in Arterial blood by Pulse oximetry Heart rate Heart rate Systolic blood pressure Diastolic blood pressure Provider Name and Address Organization Details Last Updated DateTime 4 175.26 cm 26.7 kg/m2 27881.2 2 g 98.1 [degF] 98 % 98 % 64 /min 61 /min 127 mm[Hg] 71 mm[Hg] Emma Ramirez [facility] & [place] 4 09:31:10 Date Recorded Body height Body mass index (BMI) Body weight Body temperature Oxygen saturation Oxygen saturation in Arterial blood by Pulse oximetry Heart rate Heart rate Systolic blood pressure Diastolic blood pressure Provider Name and Address Organization Details Last Updated DateTime 4 175.26 cm 25.9 kg/m2 81614.1 8 g 97.7 [degF] 99 % 99 % 52 /min 55 /min 133 mm[Hg] 70 mm[Hg] Naz Sung [facility] & [place] 08:58:27 Social History Question Answer Notes LastModified by Organizat ion Details LastModified Time Tobacco Smoking Status Never Smoker Emma Ramirez [facility] & [place] 09/13/2022 08:53:57 What Is Your Level Of Alcohol Consumption? None [email or web address] Information not available 09/13/2022 What Is Your Level Of Caffeine Consumption? Moderate [email or web address] Information not available 09/13/2022 Do You Use Any Illicit Or Recreational Drugs? No [email or web address] Information not available 09/13/2022 Do You Or Have You Ever Used Any Other Forms Of Tobacco Or Nicotine? No [email or web address] Information not available 09/13/2022 Sex: Unknown Functional Status None recorded. Mental Status None recorded. Family History Relationship Description Onset Age of this Age Resolved Age Notes LastModified by Organization Details LastModified Time Mother Hypertensive disorder [email or web address]_MERGE Not available 05/11 11:12:34 Mother Malignant neoplasm of bone CHART_MERGE Not available 05/11 11:12:34 Medical History No medical history recorded. Past Encounters Encounter ID Performer Location Encounter Start Date Encounter Closed Date Diagnosis/Indication Diagnosis SNOMED-CT Code Diagnosis ICD10 Code Diagnosis Note [id number] Katelyn Gonzalez NP [facility] [address] [address] 03/15/2022 08:56:58 03/15/2022 10:28:25 History of polyp of colon 327829474 Z86.010 - colonoscop y scheduled History of heartburn 312 1472304 9109 Z87.19 - famotidine once daily or as needed- stay upright 30-60 minutes after eating- avoid trigger foods [id number] Barrera Rodney PA-C [facility] [place] [address] 2 09/13/2022 08:37:06 09/13/2022 09:23:23 Constipation 48128425 K59.00 History of polyp of colon 365488711 Z86.010 History of heartburn 934 4351218 9109 Z87.19 [id number] BRIAN BLANCO MSN, METAL FILER, TIRE TRIMMER HAND-C [facility] [place] [id number] 04/02/2023 09:30:18 04/02/2023 11:06:32 Liver enzymes level above reference range 802014005 R74.01 Constipation 00068856 K5 9.00 History of polyp of colon 585751960 Z86.010 History of heartburn 335 0078063 9109 Z87.19 [id number] BRIAN BLANCO MSN, METAL FILER, TIRE TRIMMER HAND-C [facility] [place] [id number] 2 05/14/2023 09:25:52 05/14/2023 10:26:30 Liver enzymes level above reference range 021080096 R74.01 Constipation 37533839 K5 9.00 History of polyp of colon 958079180 Z86.010 History of heartburn 454 9155845 9109 Z87.19 Anti-nucle ar factor detected 278348861 R76.8 [id number] BRIAN BLANCO MSN, METAL FILER, TIRE TRIMMER HAND-C [facility] [place] [id number] 2 08/09/2023 08:35:27 08/09/2023 09:47:48 Liver enzymes level above reference range 596823809 R74.01 Constipation 56638764 K5 9.00 History of polyp of colon 292878145 Z86.010 History of heartburn 209 2648345 9109 Z87.19 Anti-nucle ar factor detected 993282374 R76.8 Health Concerns Section Related Observation LastModified by Organization Detai ls LastModified Time None Recorded Concern Status LastModified by Organization Details LastModified Time None Recorded Advance Directives Directive None Recorded Payers Encounter Date Sequence Insurance Name Policy Number Policy Vides Covered Member ID Vides Member ID Guarantor Name 03/15/2022 1 [employer] (MEDICARE REPLACEMENT/A DVANTAGE - PPO) Hero Patino [id number] eHro Patino 09/13/2022 1 [employer] (MEDICARE REPLACEMENT/A DVANTAGE - PPO) Hero Patino [id number] Hero Patino 04/02/2023 1 [employer] (MEDICARE REPLACEMENT/A DVANTAGE - PPO) Hero Patino [id number] Hero Patino 05/14/2023 1 [employer] (MEDICARE REPLACEMENT/A DVANTAGE - PPO) Hero Patino [id number] Hero Patino 08/09/2023 1 [employer] (MEDICARE REPLACEMENT/A DVANTAGE - PPO) Hero Patino [id number] Hero Patino Notes Date Note Type Note Provider Name and Address Organization Details Recorded Time 03/15/2022 text/html Patient is a 71-year-old male here today for follow-up after colonoscopy done 01/31/[address] Viera in [place]. referral was for repeat evaluation by Dr Cabezas for colonoscopy in 3-6 months with extended bowel preparation secondary to limitations in visualization in size/nature/number of polyps. polyps that were removed showed tubular adenoma and sessile serrated adenoma fragments with no high-grade dysplasia identified. Reports he does have intermittent heartburn which she takes Pepcid as needed. Denies hematemesis or hematochezia. Denies abdominal pain. Denies nausea, vomiting or dysphagia. Reports history of hemorrhoidectomy over 10 years ago. Denies complaints or concerns otherwise Katelyn Gonzalez, [address] , [place], [address], [facility] - [place] & [place] 03/15/2022 11:58:50 09/13/2022 text/html PREVIOUS (03/15/22 ): Patient is a 71-year-old male here today for follow-up after colonoscopy done 01/31/[address] Viera in [place]. referral was for repeat evaluation by Dr Cabezas for colonoscopy in 3-6 months with extended bowel preparation secondary to limitations in visualization in size/nature/number of polyps. polyps that were removed showed tubular adenoma and sessile serrated adenoma fragments with no high-grade dysplasia identified. Reports he does have intermittent heartburn which she takes Pepcid as needed. Denies hematemesis or hematochezia. Denies abdominal pain. Denies nausea, vomiting or dysphagia. Reports history of hemorrhoidectomy over 10 years ago. Denies complaints or concerns otherwise CURRENT: Mr. Patino returns to the office today for follow-up. He is doing very well currently. He is no longer having issues with heartburn and has stopped Pepcid. He is taking Miralax once daily, which is managing constipation issues very well. He underwent colonoscopy this past June with no further polyps identified. 3 year repeat was recommended. Barrera Rodney PA-C [address] [facility], [place], [address], [place] - [facility] - [place] & [place] 09/13/2022 16:00:36 04/02/2023 text/html PREVIOUS (03/15/22 Tiffanie Gonzalez): Patient is a 71-year-old male here today for follow-up after colonoscopy done 01/31/[address] Viera in [place]. referral was for repeat evaluation by Dr Cabezas for colonoscopy in 3-6 months with extended bowel preparation secondary to limitations in visualization in size/nature/number of polyps. polyps that were removed showed tubular adenoma and sessile serrated adenoma fragments with no high-grade dysplasia identified. Reports he does have intermittent heartburn which she takes Pepcid as needed. Denies hematemesis or hematochezia. Denies abdominal pain. Denies nausea, vomiting or dysphagia. Reports history of hemorrhoidectomy over 10 years ago. Denies complaints or concerns otherwise PREVIOUS (09/13/22 Edgar Rodney): Mr. Patino returns to the office today for follow-up. He is doing very well currently. He is no longer having issues with heartburn and has stopped Pepcid. He is taking Miralax once daily, which is managing constipation issues very well. He underwent colonoscopy this past June with no further polyps identified. 3 year repeat was recommended. CURRENT (04/02/23 Marlo Blanco): Mr. Patino presents to the clinic today for evaluation of elevated liver enzymes. He reports his liver enzymes have been elevated for the last 12-18 months and have been attributed to statin use. He underwent liver ultrasound 01/10/2019 for elevated liver enzymes which was unremarkable. He had an additional abdominal ultrasound 01/13/2020 due to a renal cyst, which showed homogeneous echogenicity of the liver and no lesions present. The patient reports his statin was recently discontinued and he was started on Repatha. He reports his liver enzymes increased since that time and subsequently he was reffered to us for further management. Labs on referral 02/19/2023 were remarkable for AST 129 and ALT 118 with normal total bilirubin. I do not have access to any previous lab work. The patient reports no complaints today. He denies alcohol use, history of hepatitis, history of pancreatitis, or excessive NSAID use. He does report a recent 4lb weight gain, which is not uncommon for him in the winter. He does report a family history of liver disease in his brother and nephew. Both had cirrhosis, his nephew had alcoholic cirrhosis and in his early 40s. The patient does report taking a packet of 1,000mg vitamin-C daily in the winter for the last 2 years to help boost his immune system. He denies any history of autoimmune disease, joint pain, fatigue, unintentional weight loss, night sweats, nausea, vomiting, abdominal pain, hematemesis, hematochezia or melena. His constipation is well controlled. He takes 1/2 cap of MiraLax once daily, which produces 2 soft bowel movements per day. BRIAN BLANCO MSN, METAL FILER, TIRE TRIMMER HAND-C [address] , [place], [address], [place] - [facility] - [place] & [place] 04/02/2023 11:56:15 05/14/2023 text/html PREVIOUS (03/15/22 Tiffanie Gonzalez): Patient is a 71-year-old male here today for follow-up after colonoscopy done 01/31/[address] Viera in [place]. referral was for repeat evaluation by Dr Cabezas for colonoscopy in 3-6 months with extended bowel preparation secondary to limitations in visualization in size/nature/number of polyps. polyps that were removed showed tubular adenoma and sessile serrated adenoma fragments with no high-grade dysplasia identified. Reports he does have intermittent heartburn which she takes Pepcid as needed. Denies hematemesis or hematochezia. Denies abdominal pain. Denies nausea, vomiting or dysphagia. Reports history of hemorrhoidectomy over 10 years ago. Denies complaints or concerns otherwise PREVIOUS (09/13/22 Edgar Rodney): Mr. Patino returns to the office today for follow-up. He is doing very well currently. He is no longer having issues with heartburn and has stopped Pepcid. He is taking Miralax once daily, which is managing constipation issues very well. He underwent colonoscopy this past June with no further polyps identified. 3 year repeat was recommended. CURRENT (04/02/23 Marlo Blanco): Mr. Patino presents to the clinic today for evaluation of elevated liver enzymes. He reports his liver enzymes have been elevated for the last 12-18 months and have been attributed to statin use. He underwent liver ultrasound 01/10/2019 for elevated liver enzymes which was unremarkable. He had an additional abdominal ultrasound 01/13/2020 due to a renal cyst, which showed homogeneous echogenicity of the liver and no lesions present. The patient reports his statin was recently discontinued and he was started on Repatha. He reports his liver enzymes increased since that time and subsequently he was reffered to us for further management. Labs on referral 02/19/2023 were remarkable for AST 129 and ALT 118 with normal total bilirubin. I do not have access to any previous lab work. The patient reports no complaints today. He denies alcohol use, history of hepatitis, history of pancreatitis, or excessive NSAID use. He does report a recent 4lb weight gain, which is not uncommon for him in the winter. He does report a family history of liver disease in his brother and nephew. Both had cirrhosis, his nephew had alcoholic cirrhosis and in his early 40s. The patient does report taking a packet of 1,000mg vitamin-C daily in the winter for the last 2 years to help boost his immune system. He denies any history of autoimmune disease, joint pain, fatigue, unintentional weight loss, night sweats, nausea, vomiting, abdominal pain, hematemesis, hematochezia or melena. His constipation is well controlled. He takes 1/2 cap of MiraLax once daily, which produces 2 soft bowel movements per day. CURRENT (05/14/23 Marlo Blanco): Mr. Pation presents to the clinic today for follow-up. His previous liver enzyme workup revealed positive autoimmune markers. Liver ultrasound revealed normal liver, CT scan revealed fatty liver. The patient does complain of muscle weakness, joint pain and fatigue. He feels these symptoms began since he was started on Repatha. He denies any history of autoimmune disease, nausea, vomiting, abdominal pain, alcohol use, memory/confusion issues, ascites, hematemesis, hematochezia or melena. BRIAN BLANCO MSN, METAL FILER, TIRE TRIMMER HAND-C [address] [facility], [place], [address], [facility] - [facility] - [place] & [place] 05/14/2023 12:57:53 08/09/2023 text/html PREVIOUS (03/15/22 Tiffanie Gonzalez): Patient is a 71-year-old male here today for follow-up after colonoscopy done 01/31/[address] Viera in [place]. referral was for repeat evaluation by Dr Cabezas for colonoscopy in 3-6 months with extended bowel preparation secondary to limitations in visualization in size/nature/number of polyps. polyps that were removed showed tubular adenoma and sessile serrated adenoma fragments with no high-grade dysplasia identified. Reports he does have intermittent heartburn which she takes Pepcid as needed. Denies hematemesis or hematochezia. Denies abdominal pain. Denies nausea, vomiting or dysphagia. Reports history of hemorrhoidectomy over 10 years ago. Denies complaints or concerns otherwise PREVIOUS (09/13/22 Edgar Rodney): Mr. Patino returns to the office today for follow-up. He is doing very well currently. He is no longer having issues with heartburn and has stopped Pepcid. He is taking Miralax once daily, which is managing constipation issues very well. He underwent colonoscopy this past June with no further polyps identified. 3 year repeat was recommended. PREVIOUS (04/02/23 B. Blanco): Mr. Patino presents to the clinic today for evaluation of elevated liver enzymes. He reports his liver enzymes have been elevated for the last 12-18 months and have been attributed to statin use. He underwent liver ultrasound 01/10/2019 for elevated liver enzymes which was unremarkable. He had an additional abdominal ultrasound 01/13/2020 due to a renal cyst, which showed homogeneous echogenicity of the liver and no lesions present. The patient reports his statin was recently discontinued and he was started on Repatha. He reports his liver enzymes increased since that time and subsequently he was reffered to us for further management. Labs on referral 02/19/2023 were remarkable for AST 129 and ALT 118 with normal total bilirubin. I do not have access to any previous lab work. The patient reports no complaints today. He denies alcohol use, history of hepatitis, history of pancreatitis, or excessive NSAID use. He does report a recent 4lb weight gain, which is not uncommon for him in the winter. He does report a family history of liver disease in his brother and nephew. Both had cirrhosis, his nephew had alcoholic cirrhosis and in his early 40s. The patient does report taking a packet of 1,000mg vitamin-C daily in the winter for the last 2 years to help boost his immune system. He denies any history of autoimmune disease, joint pain, fatigue, unintentional weight loss, night sweats, nausea, vomiting, abdominal pain, hematemesis, hematochezia or melena. His constipation is well controlled. He takes 1/2 cap of MiraLax once daily, which produces 2 soft bowel movements per day. PREVIOUS (05/14/23 B. Blanco): Mr. Patino presents to the clinic today for follow-up. His previous liver enzyme workup revealed positive autoimmune markers. Liver ultrasound revealed normal liver, CT scan revealed fatty liver. The patient does complain of muscle weakness, joint pain and fatigue. He feels these symptoms began since he was started on Repatha. He denies any history of autoimmune disease, nausea, vomiting, abdominal pain, alcohol use, memory/confusion issues, ascites, hematemesis, hematochezia or melena. CURRENT (08/09/23 B. Blanco): Mr. Patino presents to the clinic today for follow-up. [facility] never called him to schedule his liver biopsy. The order was sent twice. He continues to report fatigue and joint pain as well as itching and new onset rash on his chest. He believes this is due to Repatha and would like to discontinue this medication. HE has a follow-up appointment with his PCP in a couple of weeks to discuss this. He denies nausea, vomiting, abdominal pain, alcohol use, memory/ confusion issues, ascites, lower extremity edema, hematemesis, hematochezia or melena. BRIAN BLANCO MSN, METAL FILER, TIRE TRIMMER HAND-C [address] [facility], [place], [address], [facility] - [facility] - [place] & [place] 08/09/2023 10:07:11
--- OUTSIDE RECORDS SUMMARY | 2024-06-30 07:30 | XMS_ITS ---
Author Organization Unknown TREATMENT PLAN Planned Care Start Date Provider Encounter for Check-up [id number] LISSY Lawson
--- OUTSIDE RECORDS SUMMARY | 2024-06-30 07:30 | XMS_ITS ---
Laboratory report Created on: May 06, 2024 HERO HOWARD : 1950 Sex: Male Author Organization Unknown PROBLEMS Problems List Code Description RESULTS Laboratory Orders Date Order Code Test 2024-05-02 [id number] IMMUNOGLOBULIN G , QN, SERUM Laboratory Results Date LOINC Test Value Unit Reference Range Interpre tation 2024-05-02 2465-3 IMMUNOGLOBULIN G , QN, SERUM 1184 MG/DL 603-1613
--- OUTSIDE RECORDS SUMMARY | 2024-06-30 07:30 | XMS_ITS | Continuity of Care Document ---
Author Organization [facility] Phone Care Team Providers Care Furnace Room Supervisor Name Role Phone CASE, CEASAR Parks Admitting CASE, CEASAR W Surgeon KACY DASILVA Primary Care CASE, CEASAR W Primary Attending ALLERGIES AND ADVERSE REACTIONS ALLERGIES AND ADVERSE REACTIONS Code System Allergy Substance Adverse Reaction Date Reaction (Severity) Comment Status Reported By Updated By No Known Allergies [id number] on August 15, 2023 1:08:19 PM [facility] FAMILY HISTORY RELATION: Father Status: Cause of : Unknown Age at : Unknown SNOMED-CT Diagnosis Age At Onset [id number] Heart disease RELATION: Mother Status: Cause of : Unknown Age at : Unknown SNOMED-CT Diagnosis Age At Onset [id number] Malignant neoplastic disease RESULTS Patient: LEE MONAHAN Date of : [birth year] 6 LABORATORY RESULTS Information is not available LABORATORY NARRATIVE RESULTS Information is not available RADIOLOGY RESULTS Information is not available PATHOLOGY NARRATIVE RESULTS ORDER 100: PATHOLOGY SPECIME N (LOINC: 99780-7) ORDER DATE: June 02, 2024 5:31:00 PM [facility] Specimen Source: PATH Specimen Type: Refer to path ology laboratory PERFORMING LAB: [address] [id number] Final Result Date: June 03, 2024 3:53:00 PM UT TEST: PATHOLOGY SPECIMEN MICROBIOLOGY RESULTS No Micro Labs/Results Exist for Patient BLOOD ADMIN RESULTS Information is not available MEDICATIONS HOME MEDICATIONS Status RXNORM [facility] Medication Dose Route Frequency Dates Comments Reported By Updated By Active 468238 328746 95374 predniSONE Oral Tablet 5 MG 1.0 TAB ORAL DAILY Last Dose: June 01, 2024 12:00: 00 PM [facility] PATIENT [id number] on June 02, 2024 3:13:49 PM [facility] Active 140763 207489 41374 amLODIPine Besylate Oral Tablet 5 MG 1.0 TAB ORAL DAILY Last Dose: June 01, 2024 10:00: 00 PM [facility] PATIENT [id number] on June 02, 2024 3:12:38 PM [facility] Active 050681 01148 Aspirin 81 Oral Tablet Delayed Release 81 MG 1.0 TAB ORAL DAILY Last Dose: June 01, 2024 10:00: 00 PM [facility] PATIENT [id number] on June 02, 2024 3:12:51 PM [facility] Active 254376 395456 62261 Bisoprolol Fumarate Oral Tablet 5 MG 1.0 TAB ORAL BID Last Dose: June 01, 2024 10:00: 00 PM [facility] PATIENT [id number] on June 02, 2024 3:13:15 PM [facility] Active 544154 908092 35437 Ranolazine ER Oral Tablet Extended Release 12 Hour 500 MG 1.0 TAB ORAL DAILY Last Dose: June 01, 2024 10:00: 00 PM [facility] PATIENT [id number] on June 02, 2024 3:13:59 PM [facility] Active 626377 864477 12120 Tamsulosin HCl Oral Capsule 0.4 MG 1.0 TAB ORAL DAILY Last Dose: June 01, 2024 10:00: 00 PM [facility] PATIENT [id number] on June 02, 2024 3:14:09 PM [facility] Active 948144 437713 37390 Atorvastatin Calcium Oral Tablet 10 MG 1.0 TAB ORAL DAILY Last Dose: June 01, 2024 10:00: 00 PM [facility] PATIENT [id number] on June 02, 2024 3:13:01 PM [facility] Active 708432 068389 98663 Levothyroxin e Sodium Oral Tablet 50 MCG 1.0 TAB ORAL DAILY Last Dose: PATIENT [id number] on May 30, 2024 5:21:40 PM [facility] Active 181261 484407 36005 Ondansetron Oral Tablet Disintegrati ng 4 MG 1.0 TAB ORAL TIDPRN Last Dose: PATIENT [id number] on May 30, 2024 5:22:17 PM [facility] DISCHARGE MEDICATIONS Status RXNORM ND Medication Dose Route Frequency Dates Comments Physician Updated By No Discharge Medication Info rmation Available INPATIENT MEDICATIONS Status RXNORM [facility] Medication Dose Route Frequency Rat e Quantity Dates Comments Physician Updated By Allen inued [id number] 6813 5034 542 PROPOFOL 500 MG/50ML EMUL 500.0 MG INTRAV ENOUS ONE TIME ONLY (SCHEDULED DOSE) 20.833 MG/HR Start: June 02, 2024 2:21:0 0 PM UTC End: June 02, 2024 10:44: 00 PM UTC CASE CEASAR Parks [id number] on June 03, 2024 2:24:00 PM UT Discont inued [id number] 4202 3020 202 LIDOCAINE HCL 2 % SOLN 2.0 ML ONE TIME ONLY (SCHEDULED DOSE) 0.083 ML/HR Start: June 02, 2024 2:21:0 0 PM UTC End: June 02, 2024 10:44: 00 PM UTC CASE CEASAR Parks [id number] on June 03, 2024 2:24:00 PM UTC SOCIAL HISTORY SOCIAL HISTORY SNOMED-CT Social History Element Description Effective Dates Offered Cessation Comment UpdatedBy [id number] Current Tobacco smoking status Never Smoked [id number] on May 30, 2024 5:11:38 PM UT SOCIAL HISTORY - Gender Sex: Male SOCIAL HISTORY - Status : status i nformation is not available Intention in Next Year: intention information is not available SOCIAL HISTORY - Sexual Behavior Sexual Orientation Gender Identity SNOMED-CT Description SNO MED -CT Description Activity Level No of Partners Partner Type UpdatedBy Information is not available VITAL SIGNS PATIENT VITAL SIGNS This section displays the mo st recent value for each vital sign as of June 04, 2024 1:20:57 PM UT Loinc Code Vital Sign Activity Date Result Updated By 8302-2 Body height June 02, 2024 3:14:24 PM UT 175.26 cm (69.0 in) [id number] on June 02, 2024 3:14:24 [place] [address]-1 Body mass index (BMI) [Ratio] June 02, 2024 3:14:24 PM UTC 25.164 kg/m2 [id number] on June 02, 2024 3:14:24 PM UT 3140-1 Body Surface Area Derived From Formula June 02, 2024 3:14:24 PM UT 1.9298 m2 [id number] on June 02, 2024 3:14:24 [place] [address]-5 Body weight Measured June 02 3:14:24 PM UTC 77.3 kg (170.0 lb) [id number] on June 02, 2024 3:14:24 PM UT PEDIATRIC GROWTH CHART - VITAL SIGNS This section displays Head C ircumference Percentile, Weight for Length Percentile and BMI Percentile Loinc Code Pediatric Measure Age (Months) Result Updat ed By No Pediatric Growth Chart Pe rcentile Information Available. PROCEDURES PATIENT PROCEDURES CODE SYSTEM DESCRIPTION STATUS PERFORMED DATE UPD ATED BY [id number] SNOMED-CT Esophagogastroduodenoscopy completed June 02, 2024 4:00:00 AM UT [id number] on June 02, 2024 5:30:38 PM UT PROCEDURE NOTE Procedure Note information i s not available. HEALTH CONCERNS Problems Concern Status Health Concern problem infor mation not available. Smoking Status Status Years Used Consumed packs p er day Health Concern smoking histo ry information not available. Family History Concern Status Health Concern family histor y information not available. ENCOUNTERS ENCOUNTER INFORMATION Reason for Visit EGD Admission June 02, 2024 2:44:[address] [address] Discharge June 02, 2024 10:44:00 PM UT D ISCHARGED TO HOME OR SELF CARE ENCOUNTER DIAGNOSES Notes information is not isabel ilable. Code System Diagnosis Onset Date Diagnosis information is not available. ABSTRACT DIAGNOSES Code System Diagnosis Updated By R11.2 ICD10 NAUSEA WITH VOMITING, UNSPEC IFIED [id number] on June 04, 2024 1:20:25 PM UT K31.89 ICD10 OTHER DISEASES OF STOMACH AN D DUODENUM [id number] on June 04, 2024 1:20:25 PM UT K44.9 ICD10 DIAPHRAGMATIC HE RNIA WITHOUT OBSTRUCTION OR GANGRENE [id number] on June 04, 2024 1:20:25 PM UT I10 ICD10 ESSENTIAL (PRIMARY) HYPERTEN [place] [id number] on June 04, 2024 1:20:25 PM UT E78.5 ICD10 HYPERLIPIDEMIA, UNSPECIFIED [id number] on June 04, 2024 1:20:25 PM UT N40.0 ICD10 BENIGN PROSTATIC HYPERPLASIA WITHOUT LOWER URINARY TRACT SYMPTOMS [id number] on June 04, 2024 1:20:25 PM UT 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 [id number] on June 04, 2024 1:20:25 PM UT Z79.899 ICD10 OTHER CUSTODIAL (CURRENT) DR CHEMO VELAZQUEZ [id number] on June 04, 2024 1:20:25 PM UT CARE TEAM Care Furnace Room Supervisor Role CEASAR CASE Admitting CEASAR CASE Surgeon KACY DASILVA Primary Care CEASAR CASE Primary Attending CARE TEAM CARE prop making supervisor Role on Team Status Start Date End Date Update d By CASE CEASAR BRIDGES Surgeon normal June 02, 2024 2:44:00 PM UT June 02, 2024 10:44:00 PM [facility] [id number] on June 04, 2024 1:20:33 PM [facility] BROWN Napier PCP normal May 30, 2024 4:03:29 PM [facility] June 02, 2024 10:44:00 PM [facility] [id number] on June 04, 2024 1:20:33 PM [facility] CASE CEASAR BRIDGES Attending normal May 30, 2024 4:03:29 PM [facility] June 02, 2024 10:44:00 PM [facility] [id number] on June 04, 2024 1:20:33 PM [facility] CASE CEASAR BRIDGES Admitting normal May 30, 2024 4:03:29 PM [facility] June 02, 2024 10:44:00 PM UT [id number] on June 04, 2024 1:20:33 PM [facility]
--- OUTSIDE RECORDS SUMMARY | 2024-06-30 07:30 | XMS_ITS | Continuity of Care Document ---
Author Name [facility] Organization [facility] Care Team Providers Care Engineering Lab Technician Name Role Phone [facility] Unavailable Unavailable Immunizations Combined list of available immunizations from the Department of Defense and Veterans Affairs facilities. Immunization Series Date Given Administered By Site Reaction Lot Number CVX Code Drug .Net Architect Status Comments Source FLU,3 YRS (HISTORICAL) 2006 88 complet ed [place] [facility]
[2024-06-30 07:56] LABS: Basophils % 0.3 % (0.1-2.0); Eosinophils # 0.1 Kmm3 (0.0-0.4); Eosinophils % 0.9 % (0.1-12.0); Hematocrit 43.2 % (42.0-52.0); Hemoglobin 14.4 g/dL (14.1-18.0); Lymphocytes # 1.6 K/mm3 (0.7-4.5); Lymphocytes % 23.3 % (10-50); Mean Corpuscular HGB Conc 33.3 g/dL (31.8-35.4); Mean Corpuscular Hemoglobin 32.5 pg (27.0-31.2); Mean Corpuscular Volume 97.5 fl (80-94); Mean Platelet Volume 10.3 fl (7.4-10.4); Monocytes # 0.6 K/mm3 (0.1-1.0); Monocytes % 8.9 % (1.7-9.3); Neutrophils # 4.5 K/mm3 (1.8-7.8); Neutrophils % 66.3 % (37.0-80.0); Nucleated Red Blood Cells # 0 10^3/uL; Nucleated Red Blood Cells % 0 %; Platelet Count 121 K/mm3 (142-424); Red Blood Count 4.43 M/mm3 (4.60-6.20); Red Cell Distribution Width 13.2 % (11.5-17.5); Red Cell Distribution Width-SD 47.2 fL; White Blood Count 6.8 K/mm3 (4.8-10.8)
[2024-06-30 08:26] LABS: Alanine Aminotransferase 25 U/L (12-78); Albumin Level 3.9 g/dl (3.5-5.0); Albumin/Globulin Ratio 1.3 (1.1-1.8); Alkaline Phosphatase 65 U/L (38-126); Anion Gap 12.9 mEq/L (5-15); Aspartate Amino Transferase 28 U/L (17-59); Bilirubin,Total 1.6 mg/dl (0.2-1.3); Blood Urea Nitrogen 14 mg/dl (9-20); Calcium 9.5 mg/dl (8.4-10.2); Carbon Dioxide 26 mmol/L (22.0-30.0); Chloride 104 mmol/L (98-107); Estimated Glomerular Filt Rate 94 ml/min (>60); GFR (African American) 114 ML/MIN (>60); Glucose 103 mg/dl (74-100); Potassium 3.9 mmoL/L (3.5-5.1); Sodium 139 mmol/L (136-145); Total Protein,Serum 6.9 g/dl (6.3-8.2)
[2024-07-01 05:27] LABS: Immunoglobulin G, Qn 1116 mg/dL (603-1613)
== END 2024-06-30 23:59 | disposition home or self-care (01) ==
LOC: LAB 07:28
PROVIDERS: PCP Family Medicine; Visit Provider Internal Medicine Gastroenterology
DX: K75.4 Autoimmune hepatitis (principal); K74.60 Unspecified cirrhosis of liver
CPT/HCPCS: 36415; 80053; 82784; 85025

== ENCOUNTER 2024-07-25 07:24 | Outpatient (CLI) | payer MEDICARE, SELFPAY ==
--- OUTSIDE RECORDS SUMMARY | 2024-07-25 07:27 | XMS_ITS | Data Portability ---
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 3 year repeat was recommended. He plans to have this done with Dr. Viera at [facility]. 2) Constipation: Well managed on Miralax once daily. 3) Heartburn: Resolved. He has stopped acid reducing medications. f/u PRN [email or web address] Not available 09/13/2022 16:00:19 04/02/2023 04/02/2023 71-year-old male with: 1) Elevated liver enzymes -Will obtain lab workup per below to rule out hepatitis, autoimmune, or hereditary/metabo lic causes. -Will order liver ultrasound -Unable to perform NOLASCO Fibrosure test today as patient is not fasting. Patient was given printed lab order and instructed to get this lab drawn at [facility] when he is fasting and goes for [...] have this done with Dr. Viera at [facility]. 3) Constipation: Well managed on Miralax once daily. 4) Heartburn: Resolved. He has stopped acid reducing medications. f/u 6 weeks [email or web address] Not available 04/02/2023 11:55:33 05/14/2023 05/14/2023 72-year-old [...] -Will order CT guided liver biopsy at [facility] for further evaluation -Diet and exercise [...] have this done with Dr. Viera at [facility]. 4) Constipation: Well managed on Miralax once daily. 5) Heartburn: Resolved. He has stopped acid reducing medications. F/u after liver biopsy [email or web address] Not available 05/14/2023 12:55:05 08/09/2023 08/09/2023 72-year-old [...] -Will order CT guided liver biopsy at [facility]. Order was sent to [facility] Interventional Radiology x2, the patient was never called to schedule the procedure. Ordered liver biopsy to be performed at [place] yesterday. -Diet and exercise counseled -Continue to [...] have this done with Dr. Viera at [facility]. 4) Constipation: Well managed on Miralax once daily. 5) Heartburn: Resolved. He has stopped acid reducing medications. F/u after liver biopsy [email or web address] Not available 08/09/2023 10:06:50 Plan of Treatment Reminders Order Date Submit Date Provider Last Modified By Organization Details Last Modified Time Details Appointments None recorded. Lab CBC 2023 024 [facility], [address], [address], [place], [address], 4 11:12:44 CMP, serum or plasma 2023 024 [facility], [address], [address], [place], [address], 4 11:12:42 hepatic function panel, serum 2023 024 [facility], [address], [address], [place], [address], 4 11:14:13 hepatitis panel (A+B+C), acute, serum 2023 024 [facility], [address], [address], [place], [address], 4 11:14:15 hepatitis B surface Ab, quantitat pepe, serum 2023 024 [facility], [address], [address], [place], [address], 4 11:14:20 hepatitis A virus Ab, qualitati ve, immunoass ay, serum 2023 024 [facility], [address], [address], [place], [address], 4 11:14:27 actin smooth muscle IgG Ab, quant, serum 2023 024 [facility], [address], [address], [place], [address], 4 11:14:21 mitochond rial M2 igg Ab, serum 2023 024 [facility], [address], [address], [place], [address], 4 11:14:22 igg, quantitat pepe, serum 2023 024 [facility], [address], [address], [place], [address], 4 11:14:25 GONZALO (antinucl ear antibodie s) screen, serum 2023 024 [facility], [address], [address], [place], [address], 4 11:14:23 HFE gene mutation analysis, blood or tissue 2023 024 [facility], [address], [address], [place], [address], 4 11:14:18 iron + TIBC + ferritin, serum 2023 024 [facility], [address], [address], [place], [address], 4 11:14:09 alpha-1-a ntitrypsi n (aat), QN, serum 2023 024 [email or web address] [facility], [address], [address], [place], [address], 4 10:37:40 alpha-1-a ntitrypsi n (aat), QN, serum 2023 024 [facility], [address], [address], [place], [address], 4 11:14:14 CBC 2023 024 [facility], [address], [address], [place], [address], 4 11:14:12 PT/INR 2023 024 [facility], [address], [address], [place], [address], 4 11:14:16 nonalcoho lic steatohep atitis + fibrosis panel, serum or plasma 2023 024 [facility], [address], [address], [place], [address], 4 11:14:10 afp (alpha-fe toprotein ) tumor marker, serum or plasma 2023 024 [facility], [address], [address], [place], [address], 4 11:14:19 Referral None recorded. Procedures biopsy, [...] Family history of liver disease. [address] [facility], [address], [place], [address], 4 13:49:01 Surgeries None recorded. Imaging US, liver 2023 024 [facility] (Centralized Scheduling), [address] [facility], [place], [address], 4 10:48:53 Medication Orders polyethyl jeffrey glycol 3350 17 gram/dose oral powder 2022 024 [facility], [address] [place] [address], [facility], [place], [address], 4 10:33:01 famotidin e 20 mg tablet 2022 023 [facility], [address] [place] [address], [facility], [place], [address], 4 10:15:02 Patient TargetsNo targets recorded. Patient InstructionsNo instructions recorded. Reason for Referral None Reported. Results Created Date Observation Date Name Description Value Unit Range Abnormal Flag Note LastModifiedBy Organization Detail LastModifiedTime 04/02/19 24 04/03/2023 FE+TI BC+FE R iron bind.cap.(TI BC) 396 ug/dL 250-45 0 Not Available [facility] ([facility]) [address] [place], [address], 04/19/2023 11:14:04/02/19 24 04/03/2023 FE+TI BC+FE R UIBC 168 ug/dL 111-34 3 Not Available [facility] ([facility]) [address] [place], [address], 04/19/2023 11:14:09 04/02/19 24 04/03/2023 FE+TI BC+FE R iron 228 ug/dL 38-169 above high normal Not Available [facility] ([facility]) [address] [place], [address], 04/19/2023 11:14:09 04/02/19 24 04/03/2023 FE+TI BC+FE R iron saturation 58 % 15-55 above high normal Not Available [facility] ([facility]) [address] [place], [address], 04/19/2023 11:14:09 04/02/19 24 04/03/2023 FE+TI BC+FE R ferritin 66 NG/mL 30-400 Not Available [facility] ([facility]) [address] [place], [address], 04/19/2023 11:14:04/02/19 24 04/02/2023 NOLASCO FIBRO SURE( R) PLUS methodology: COMMEN T The christopher margaret teste d are perfo rmed by Fibro Sure- Speci fic metho ds. Not inten ded for use with other diagn ostic consi derat ions. Not Available [facility] ([facility]) [address] [place], [address], 04/19/2023 11:14:10 04/02/19 24 04/02/2023 NOLASCO FIBRO SURE( R) PLUS interpretati ons: COMMEN T Quant itati ve resul ts of 10 bioch emica ls in combi natio n with age and gende r, are christopher zed using a compu tatio nal algor ithm to provi de a quant itati ve surro gate marke r (0.0- 1.0) of liver fibro sis (Spring vir F0-F4 ), hepat ic steat osis [...] had signi fican t NAFLD fibro sis (Spring vir F2-F4 ) and 11% had cirrh [...] y of 71%.[ 3] Not Available [facility] ([facility]) [address] [facility], [place], [address], 04/19/2023 11:14:10 04/02/19 24 04/02/2023 NOLASCO FIBRO [...] F4 - Cirrh osis Not Available [facility] ([facility]) [address] [place], [address], 04/19/2023 11:14:10 04/02/19 24 04/02/2023 NOLASCO FIBRO SURE( R) PLUS steatosis scoring COMMEN T <=0.4 0 = S0 - No Steat osis (<5%) 0.40 - 0.55 = S1 - Mild Steat osis (but Clini koki Signi fican t) (5-33 %) >0.55 = S2S3- Moder ate to Sever e Steat osis (Clin icall y Signi fican t) (34-1 00%) Not Available [facility] ([facility]) [address] [place], [address], 04/19/2023 11:14:10 04/02/19 24 04/02/2023 NOLASCO FIBRO SURE( R) PLUS nolasco scoring COMMEN T <=0.2 5 = N0 - No NOLASCO 0.25 - 0.50 = N1 - Mild NOLASCO 0.50 - 0.75 = N2 - Moder ate NOLASCO >0.75 = N3 - Sever e NOLASCO Not Available [facility] ([facility]) [address] [place], [address], 04/19/2023 11:14:10 04/02/19 24 04/02/2023 NOLASCO FIBRO [...] s of fibro sis. Not Available [facility] ([facility]) [address], [place], [address], 04/19/2023 11:14:10 04/02/19 24 04/02/2023 NOLASCO FIBRO [...] conta ct custo reid servi ce at [phone]. Refer ences : 1. Marciano Galloway et [...] Eur J Gastr oente rol Hepat ol. 2018 July; 30:56 9-577 . Not Available [facility] ([facility]) [address] [facility], [place], [address], 04/19/2023 11:14:10 04/02/19 24 04/03/2023 NOLASCO FIBRO SURE( R) PLUS fibrosis score 0.89 0.00-0 .21 above high normal Not Available [facility] ([facility]) [address] [facility], [place], [address], 04/19/2023 11:14:10 04/02/19 24 04/03/2023 NOLASCO FIBRO SURE( R) PLUS fibrosis stage COMMEN T F4 - Cirrh osis Not Available [facility] ([facility]) [address] [facility], [place], [address], 04/19/2023 11:14:10 04/02/19 24 04/03/2023 NOLASCO FIBRO SURE( R) PLUS steatosis score 0.50 0.00-0 .40 above high normal Not Available [facility] ([facility]) [address] [facility], [place], [address], 04/19/2023 11:14:10 04/02/19 24 04/03/2023 NOLASCO FIBRO SURE( R) PLUS steatosis grade COMMEN T S1 - Mild Steat osis (But Clini koki Signi fican t) (5-33 %) Not Available [facility] ([facility]) [address] [place], [address], 04/19/2023 11:14:10 04/02/19 24 04/03/2023 NOLASCO FIBRO SURE( R) PLUS nolasco score 0.96 0.00-0 .25 above high normal Not Available [facility] ([facility]) [address] [place], [address], 04/19/2023 11:14:10 04/02/19 24 04/03/2023 NOLASCO FIBRO SURE( R) PLUS nolasco grade COMMEN T N3 - Sever e NOLASCO Not Available [facility] ([facility]) [address] [facility], [place], [address], 04/19/2023 11:14:10 04/02/19 24 04/03/2023 NOLASCO FIBRO SURE( R) PLUS alpha 2-macroglobu mason, qn 526 mg/dL 110-27 6 above high normal Not Available [facility] ([facility]) [address] [facility], [place], [address], 04/19/2023 11:14:10 04/02/19 24 04/03/2023 NOLASCO FIBRO SURE( R) PLUS haptoglobin 119 mg/dL 34-355 Not Available [facility] ([facility]) [address] [facility], [place], [address], 04/19/2023 11:14:10 04/02/19 24 04/03/2023 NOLASCO FIBRO SURE( R) PLUS apolipoprote in A-1 150 mg/dL 101-17 8 Not Available [facility] ([facility]) [address] [place], [address], 04/19/2023 11:14:10 04/02/19 24 04/03/2023 NOLASCO FIBRO SURE( R) PLUS bilirubin, total 0.9 mg/dL 0.0-1. 2 Not Available [facility] ([facility]) [address] [place], [address], 04/19/2023 11:14:10 04/02/19 24 04/03/2023 NOLASCO FIBRO SURE( R) PLUS GGT 61 IU/L 0-65 Not Available [facility] ([facility]) [address] [place], [address], 04/19/2023 11:14:10 04/02/19 24 04/03/2023 NOLASCO FIBRO SURE( R) PLUS ALT (SGPT) p5p 131 IU/L 0-55 above high normal Not Available [facility] ([facility]) [address] [place], [address], 04/19/2023 11:14:10 04/02/19 24 04/03/2023 NOLASCO FIBRO SURE( R) PLUS AST (SGOT) p5p 108 IU/L 0-40 above high normal Not Available [facility] ([facility]) [address] [place], [address], 04/19/2023 11:14:10 04/02/19 24 04/03/2023 NOLASCO FIBRO SURE( R) PLUS cholesterol, total 246 mg/dL 100-19 9 above high normal Not Available [facility] ([facility]) [address] [place], [address], 04/19/2023 11:14:10 04/02/19 24 04/03/2023 NOLASCO FIBRO SURE( R) PLUS glucose, serum 83 mg/dL 70-99 Not Available [facility] ([facility]) [address] [place], [address], 04/19/2023 11:14:10 04/02/19 24 04/03/2023 NOLASCO FIBRO SURE( R) PLUS triglyceride s 184 mg/dL 0-149 above high normal Not Available [facility] ([facility]) [address] [place], [address], 04/19/2023 11:14:10 04/02/19 24 04/03/2023 CBC, PLATE LET, NO DIFFE RENTI AL WBC 5.5 x10e3 /uL 3.4-10 .8 Not Available [facility] ([facility]) [address] [place], [address], 04/19/2023 11:14:12 04/02/19 24 04/03/2023 CBC, PLATE LET, NO DIFFE RENTI AL RBC 5.16 x10e6 /uL 4.14-5 .80 Not Available [facility] ([facility]) [address] [place], [address], 04/19/2023 11:14:12 04/02/19 24 04/03/2023 CBC, PLATE LET, NO DIFFE RENTI AL hemoglobin 16.7 g/dL 13.0-1 7.7 Not Available [facility] ([facility]) [address] [facility], [place], [address], 04/19/2023 11:14:12 04/02/19 24 04/03/2023 CBC, PLATE LET, NO DIFFE RENTI AL hematocrit 48.4 % 37.5-5 1.0 Not Available [facility] ([facility]) [address] [facility], [place], [address], 04/19/2023 11:14:12 04/02/19 24 04/03/2023 CBC, PLATE LET, NO DIFFE RENTI AL MCV 94 fL 79-97 Not Available [facility] ([facility]) [address] [facility], [place], [address], 04/19/2023 11:14:12 04/02/19 24 04/03/2023 CBC, PLATE LET, NO DIFFE RENTI AL MCH 32.4 pg 26.6-3 3.0 Not Available [facility] ([facility]) [address] [facility], [place], [address], 04/19/2023 11:14:12 04/02/19 24 04/03/2023 CBC, PLATE LET, NO DIFFE RENTI AL MCHC 34.5 g/dL 31.5-3 5.7 Not Available [facility] ([facility]) [address] [facility], [place], [address], 04/19/2023 11:14:12 04/02/19 24 04/03/2023 CBC, PLATE LET, NO DIFFE RENTI AL RDW 13.3 % 11.6-1 5.4 Not Available [facility] ([facility]) [address] [facility], [place], [address], 04/19/2023 11:14:12 04/02/19 24 04/03/2023 CBC, PLATE LET, NO DIFFE RENTI AL platelets 167 x10e3 /uL 150-45 0 Not Available [facility] ([facility]) [address] [facility], [place], [address], 04/19/2023 11:14:12 04/02/19 24 04/03/2023 CBC, PLATE LET, NO DIFFE RENTI AL NRBC WEDGER Not Available [facility] ([facility]) [address] [facility], [place], [address], 04/19/2023 11:14:12 04/02/19 24 04/03/2023 HEPAT IC FUNCT ION PANEL (7) protein, total 9.5 g/dL 6.0-8. 5 above high normal Not Available [facility] ([facility]) [address] [facility], [place], [address], 04/19/2023 11:14:13 04/02/19 24 04/03/2023 HEPAT IC FUNCT ION PANEL (7) albumin 4.8 g/dL 3.8-4. 8 Not Available [facility] ([facility]) [address] [facility], [place], [address], 04/19/2023 11:14:13 04/02/19 24 04/03/2023 HEPAT IC FUNCT ION PANEL (7) bilirubin, total 0.9 mg/dL 0.0-1. 2 Not Available [facility] ([facility]) [address] [facility], [place], [address], 04/19/2023 11:14:13 04/02/19 24 04/03/2023 HEPAT IC FUNCT ION PANEL (7) bilirubin, direct 0.25 mg/dL 0.00-0 .40 Not Available [facility] ([facility]) [address] [facility], [place], [address], 04/19/2023 11:14:13 04/02/19 24 04/03/2023 HEPAT IC FUNCT ION PANEL (7) alkaline phosphatase 107 IU/L 44-121 Not Available [facility]) [address] [facility], [place], [address], 04/19/2023 11:14:13 04/02/19 24 04/03/2023 HEPAT IC FUNCT ION PANEL (7) AST (SGOT) 97 IU/L 0-40 above high normal Not Available [facility] ([facility]) [address] [facility], [place], [address], 04/19/2023 11:14:13 04/02/19 24 04/03/2023 HEPAT IC FUNCT ION PANEL (7) ALT (SGPT) 106 IU/L 0-44 above high normal Not Available [facility] ([facility]) [address] [facility], [place], [address], 04/19/2023 11:14:13 04/02/19 24 04/02/2023 A1A, QUANT [...] nt in infan cy as neona lazarus maribeht stasi s (denise dice) or in adult [...] . Nilo ic couns john is recom badelrahman d to discu ss the poten tial clini dean impli catio ns of posit pepe resul ts, as well as recom menda tions for testi ng famil y membe rs. Nilo ic Coord inato rs are avail able for healt h care provi ders to discu ss resul ts at [phone]- GENE (8984 ). Test Detai ls: Two varia nts [...] es in the SERPI NA1 gene (NM_0 [id number] .4) was perfo rmed by multi plex [...] Refer ences : Flory wang RA, Duke anderson G, Rk ly ML, Forestdale s M, Cross CE, Nava an K, Awilda cox DK, Gayathri t SL, Dioni sams JM, Yuval pittman JK, Ronal mae C, Mary Jade. The Diagn osis and Manag ement of Alpha -1 Antit rypsi n Defic iency in the Adult . Chron ic Obstr Pulm Dis. 2016 Aug 15;3(3 ):668 -682. doi: 10.15 326/j copdf .3.2014. 0182. PMID: 35927 891; PMCID : PMC55 67709 . Yuval GRIFFITH, Glynn burton V, Monroe SANTOS. Alpha -1 Antit rypsi n Defic iency . 2005Jan 05 [Upda bhavesh 2019July 30]. In: Franklin MP, Lane [facility], Severino MEADOWS, et al., kanwal rs. GeneR james sams(R) [Inte rnet] . Girish dawson ([place]): [facility] of Girish Segura; 1992- 2020. Avail able from: https ://dean w.ncb i.nlm .nih. gov/b ooks/ NBK15 19/ Not Available [facility] ([facility]) [address] [place], [address], 04/19/2023 11:14:14 04/02/19 24 04/04/2023 A1A, QUANT +OH TYPE( RFX PHENO ) fgixg-1-schr trypsin, serum 165 mg/dL 101-18 7 Not Available [facility] ([facility]) [address] [place], [address], 04/19/2023 11:14:14 04/02/19 24 04/10/2023 A1A, QUANT +OH TYPE( RFX PHENO ) aat, DNA analysis COMMEN T Resul t: c.109 6 G>A (p.Gl u366L ys), [...] n and Comme nts. Not Available [facility] ([facility]) [address] [facility], [place], [address], 04/19/2023 11:14:14 04/02/19 24 04/10/2023 A1A, QUANT +OH TYPE( RFX PHENO ) electronical ly signed by: CINDA MORFIN, PHD Not Available [facility] ([facility]) [address] [place], [address], 04/19/2023 11:14:14 04/02/19 24 04/10/2023 A1A, QUANT +OH TYPE( RFX PHENO ) a1a rfx to phenotype NOT INDICA BHAVESH Not Available [facility] ([facility]) [address] [place], [address], 04/19/2023 11:14:14 04/02/19 24 04/03/2023 ACUTE HEPAT ITIS hep A Ab, IgM NEGATI VE negati ve Not Available [facility] ([facility]) [address] [place], [address], 04/19/2023 11:14:15 04/02/19 24 04/03/2023 ACUTE HEPAT ITIS HBsAg screen NEGATI VE negati ve Not Available [facility] ([facility]) [address] [place], [address], 04/19/2023 11:14:15 04/02/19 24 04/03/2023 ACUTE HEPAT ITIS hep B core Ab, IgM NEGATI VE negati ve Not Available [facility] ([facility]) [address] [facility], [place], [address], 04/19/2023 11:14:15 04/02/19 24 04/03/2023 ACUTE HEPAT ITIS HCV Ab NON REACTI VE non reacti ve Not Available [facility] ([facility]) [address] [facility], [place], [address], 04/19/2023 11:14:15 04/02/19 24 04/03/2023 ACUTE HEPAT ITIS interpretati on: COMMEN T Not infec bhavesh with HCV unles s early or acute infec tion is suspe cted (whic h may be delay ed in an immun ocomp romis ed indiv idual ), or other evide nce exist s to indic ate HCV infec tion. Not Available [facility] ([facility]) [address] [facility], [place], [address], 04/19/2023 11:14:15 04/02/19 24 04/03/2023 PROTH ROMBI [...] range 2.5 - 3.5 Not Available [facility] ([facility]) [address] [facility], [place], [address], 04/19/2023 11:14:16 04/02/19 24 04/03/2023 PROTH ROMBI N TIME (PT), SERIA L prothrombin time 12.0 sec 9.1-12 .0 Not Available [facility] ([facility]) [address] [facility], [place], [address], 04/19/2023 11:14:16 04/02/19 24 04/03/2023 PROTH ROMMONET N TIME (PT), SERIA L pdf . Not Available [facility] ([facility]) [address], [place], [address], 04/19/2023 11:14:16 04/02/19 24 04/18/2023 HERED .HEMO [...] ders to discu ss resul ts at [phone] GENE (4546 ). Test Detai ls: Three varia nts christopher zed: c.845 G>A (p.Cy s282T yr), commo nly refer red to as C282Y c.187 C>G (p.Hi s63As p), commo nly refer red to as H63D c.193 A> T (p.Se r65Cy s), commo nly refer red to as S65C Metho ds/Li mitat ions: DNA Christopher sis of the HFE gene (NM_0 [id number] .4) was perfo rmed by PCR ampli [...] Refer ences : Jesús BR, Yayo PC, Lilial ey KV, Anselmo santiago LW, Sarah santiago ; Ameri can Assoc iatio n for the Study of Liver Disea ses. Diagn osis and manag ement of hemoc hroma tosis : 2010 pract ice guide line by the Ameri can Assoc iatio n for the Study of Liver Disea ses. Hepat ology . 2010;5 4(1): 328-4 3. doi: 10.10 02/ p.243 30. PMID: 61732 290; PMCID : PMC31 94389 . Robert G, Shabana ot P, Brandon pike DW, Martha r H, Asa singhn O, Rosana n S, Ivana o I, Mickey s M, Nicholas y S. EMQN best pract ice guide lines for the molec ular nilo ic diagn osis of hered itary hemoc hroma tosis (HH). Eur J Hum Nilo . 2016 Jun;2 4(4): 479-9 5. doi: 10.10 /ej hg.20 15.12 8. Epub 2014Sep 16. PMID: 38865 218; PMCID : PMC49 02095 . Not Available [facility] [address], [place], [address], 04/19/2023 11:14:18 04/02/19 24 04/18/2023 HERED .HEMO CHROM ATOSI S, DNA reviewed by: FAITH [employer] Techn ical [place] nent perfo rmed at [facility] RTP Profe ssion al [place] nent perfo rmed by: Marcell lieberman, Ph.D. , [facility] [employer] [facility], Molec ular [facility] [address] [place] [address] Not Available [facility] ([facility]) [address] [place], [address], 04/19/2023 11:14:18 04/02/19 24 04/03/2023 AFP, SERUM , TUMOR MARKE R AFP, serum, tumor marker 2.2 NG/mL 0.0-8. 4 Michelle Diagn ostic s Elect michelle milum inesc ence Immun oassa y (ECLI A) Value s obtai kali with diffe rent assay metho ds or kits canno t be used inter lewis eably . Resul ts canno t be inter prete d as absol kaibab evide nce of the prese nce or absen ce of [facility] se. This test is not inter preta ble in pregn ant femal es. Not Available [facility] ([facility]) [address] [facility], [place], [address], 04/19/2023 11:14:19 04/02/19 24 04/03/2023 HEPAT ITIS B SURF AB QUANT hepatitis B surf Ab quant 3.3 mIU/m L immuni ty>9.9 below low normal Statu s of Immun ity Anti- HBs Level ----- ----- ----- --- ----- ----- ---- Incon siste nt with Immun ity 0.0 - 9.9 Consi stent with Immun ity >9.9 Not Available [facility] ([facility]) [address] [place], [address], 04/19/2023 11:14:20 04/02/19 24 04/03/2023 ACTIN (SMOO TH MUSCL E) ANTIB LEANDRO actin (smooth muscle) antibody 43 units 0-19 above high normal Negat pepe 0 - 19 Weak posit pepe 20 - 30 Moder ate to stron g posit peep >30 Actin Antib odies are found in 52-85 % of patie nts with autoi mmune hepat itis or chron ic activ e hepat itis and in 22% of patie nts with prima ry bilia ry cirrh osis. Not Available [facility] ([facility]) [address] [place], [address], 04/19/2023 11:14:21 04/02/19 24 04/03/2023 MITOC HONDR IAL (M2) ANTIB LEANDRO mitochondria l (M2) antibody <20.0 units 0.0-20 .0 Negat pepe 0.0 - 20.0 Equiv ocal 20.1 - 24.9 Posit pepe >24.9 Mitoc hondr ial (M2) Antib odies are found in 90-96 % of patie nts with prima ry bilia ry cirrh osis. Not Available [facility] ([facility]) [address] [place], [address], 04/19/2023 11:14:22 04/02/19 24 04/03/2023 GONZALO W/REF SALIMA GONZALO direct POSITI VE negati ve abnormal Not Available [facility] ([facility]) [address] [place], [address], 04/19/2023 11:14:23 04/02/19 24 04/03/2023 GONZALO W/REF SALIMA anti-DNA (ds) Ab qn 27 IU/mL 0-9 above high normal Negat pepe <5 Equiv ocal 5 - 9 Posit pepe >9 Not Available [facility] ([facility]) [address] [place], [address], 04/19/2023 11:14:23 04/02/19 24 04/03/2023 GONZALO W/REF SALIMA gravity prospecting observer antibodies 0.8 ai 0.0-0. 9 Not Available [facility] ([facility]) [address] [place], [address], 04/19/2023 11:14:23 04/02/19 24 04/03/2023 GONZAOL W/REF SALIMA carpio antibodies <0.2 ai 0.0-0. 9 Not Available [facility] ([facility]) [address] [place], [address], 04/19/2023 11:14:23 04/02/19 24 04/03/2023 GONZALO W/REF SALIMA antisclerode rma-70 antibodies 0.2 ai 0.0-0. 9 Not Available [facility] ([facility]) [address] [place], [address], 04/19/2023 11:14:23 04/02/19 24 04/03/2023 GONZALO W/REF SALIMA sjogren's anti-ss-A <0.2 ai 0.0-0. 9 Not Available [facility] ([facility]) [address] [place], [address], 04/19/2023 11:14:23 04/02/19 24 04/03/2023 GONZALO W/REF SALIMA sjogren's anti-ss-B <0.2 ai 0.0-0. 9 Not Available [facility] ([facility]) [address] [place], [address], 04/19/2023 11:14:23 04/02/19 24 04/03/2023 GONZALO W/REF SALIMA thyroid peroxidase (tpo) Ab 170 IU/mL 0-34 above high normal Not Available [facility] ([facility]) [address] [place], [address], 04/19/2023 11:14:23 04/02/19 24 04/03/2023 GONZALO W/REF SALIMA antichromati n antibodies 6.0 ai 0.0-0. 9 above high normal Not Available [facility] ([facility]) [address] [place], [address], 04/19/2023 11:14:23 04/02/19 24 04/03/2023 GONZALO W/REF SALIMA anti-centrom ere B antibodies <0.2 ai 0.0-0. 9 Not Available [facility] ([facility]) [address] [place], [address], 04/19/2023 11:14:23 04/02/19 24 04/05/2023 GONZALO W/REF SALIMA complement C3, serum 155 mg/dL 82-167 Not Available [facility] ([facility]) [address] [place], [address], 04/19/2023 11:14:23 04/02/19 24 04/05/2023 GONZALO W/REF SALIMA complement C4, serum 16 mg/dL 12-38 Not Available [facility] ([facility]) [address] [place], [address], 04/19/2023 11:14:23 04/02/19 24 04/05/2023 GONZALO W/REF SALIMA rheumatoid factor (rf) 12.2 IU/mL <14.0 Not Available [facility] ([facility]) [address] [place], [address], 04/19/2023 11:14:23 04/02/19 24 04/05/2023 GONZALO W/REF SALIMA anti-ccp Ab, IgG/IgA 14 units 0-19 Negat pepe <20 Weak posit pepe 20 - 39 Moder ate posit pepe 40 - 59 Stron g posit pepe >59 Not Available [facility] ([facility]) [address] [place], [address], 04/19/2023 11:14:23 04/02/19 24 04/05/2023 GONZALO W/REF SALIMA anticardioli pin Ab,IgG,qn 15 gpl_U /mL 0-14 above high normal Negat pepe: <15 Indet ermin ate: 15 - 20 Low-M ed Posit pepe: >20 - 80 High Posit pepe: >80 Not Available [facility] ([facility]) [address] [place], [address], 04/19/2023 11:14:23 04/02/19 24 04/05/2023 GONZALO W/REF SALIMA anticardioli pin Ab,IgM,qn 15 mpl_U /mL 0-12 above high normal Negat pepe: <13 Indet ermin ate: 13 - 20 Low-M ed Posit pepe: >20 - 80 High Posit pepe: >80 Not Available [facility] ([facility]) [address] [place], [address], 04/19/2023 11:14:23 04/02/19 24 04/05/2023 GONZALO W/REF SALIMA anticardioli pin Ab,IgA,qn <9 apl_U /mL 0-11 Negat pepe: <12 Indet ermin ate: 12 - 20 Low-M ed Posit pepe: >20 - 80 High Posit pepe: >80 Not Available [facility] ([facility]) [address] [place], [address], 04/19/2023 11:14:23 04/02/19 24 04/03/2023 IMMUN OGLOB ULIN G, QN, SERUM immunoglobul in g, qn, serum 3136 mg/dL 603-16 13 above high normal Not Available [facility] ([facility]) [address] [place], [address], 04/19/2023 11:14:25 04/02/19 24 04/03/2023 ALPHA -1-AN TITRY PSIN, SERUM [id number] trypsin, serum 157 mg/dL 101-18 7 Not Available [facility] ([facility]) [address] [place], [address], 04/19/2023 11:14:26 04/02/19 24 04/03/2023 HEP A [...] Antib leandro w/ Rfx). Not Available [facility] ([facility]) [address] [facility], [place], [address], 04/19/2023 11:14:27 04/25/19 24 04/25/2023 BUN BUN 17 mg/dL 7-18 Not Available [facility] ([facility]) [address] [facility], [place], [address], 04/25/2023 09:27:18 04/25/19 24 04/25/2023 CREAT ININE creatinine 1.0 mg/dL 0.6-1. 3 Not Available [facility] ([facility]) [address] [facility], [place], [address], 04/25/2023 09:27:20 04/25/19 24 04/25/2023 CREAT ININE glomerular filtration rate TNP mlper min 60- TEST NOT PERFO RMED GFR has only been valid ated from 18 to 70 years of age. Not Available [facility] ([facility]) [address] [facility], [place], [address], 04/25/2023 09:27:20 08/09/19 24 08/10/2023 COMP. METAB OLIC PANEL (14) glucose 86 mg/dL 70-99 Not Available [facility] ([facility]) [address] [facility], [place], [address], 08/10/2023 11:12:42 08/09/19 24 08/10/2023 COMP. METAB OLIC PANEL (14) BUN 16 mg/dL 8-27 Not Available [facility] ([facility]) [address] [facility] [place], [address], 08/10/2023 11:12:42 08/09/19 24 08/10/2023 COMP. METAB OLIC PANEL (14) creatinine 1.04 mg/dL 0.76-1 .27 Not Available [facility] ([facility]) [address] [facility] [place], [address], 08/10/2023 11:12:42 08/09/19 24 08/10/2023 COMP. METAB OLIC PANEL (14) eGFR 75 mL/mi n/1.7 3 >59 Not Available [facility] ([facility]) [address] [facility] [place], [address], 08/10/2023 11:12:42 08/09/19 24 08/10/2023 COMP. METAB OLIC PANEL (14) BUN/creatini ne ratio 15 10-24 Not Available [facility] ([facility]) [address] [facility] [place], [address], 08/10/2023 11:12:42 08/09/19 24 08/10/2023 COMP. METAB OLIC PANEL (14) sodium 137 mmol/ L 134-14 4 Not Available [facility] ([facility]) [address] [facility] [place], [address], 08/10/2023 11:12:42 08/09/19 24 08/10/2023 COMP. METAB OLIC PANEL (14) potassium 4.9 mmol/ L 3.5-5. 2 Not Available [facility] ([facility]) [address] [facility] [place], [address], 08/10/2023 11:12:42 08/09/19 24 08/10/2023 COMP. METAB OLIC PANEL (14) chloride 101 mmol/ L 96-106 Not Available [facility] ([facility]) [address] [facility], [place], [address], 08/10/2023 11:12:42 08/09/19 24 08/10/2023 COMP. METAB OLIC PANEL (14) carbon dioxide, total 24 mmol/ L Not Available [facility] ([facility]) [address] [place], [address], 08/10/2023 11:12:42 08/09/19 24 08/10/2023 COMP. METAB OLIC PANEL (14) calcium 9.8 mg/dL 8.6-10 .2 Not Available [facility] ([facility]) [address] [place], [address], 08/10/2023 11:12:42 08/09/19 24 08/10/2023 COMP. METAB OLIC PANEL (14) protein, total 8.4 g/dL 6.0-8. 5 Not Available [facility] ([facility]) [address] [place], [address], 08/10/2023 11:12:42 08/09/19 24 08/10/2023 COMP. METAB OLIC PANEL (14) albumin 4.3 g/dL 3.8-4. 8 Not Available [facility] ([facility]) [address] [place], [address], 08/10/2023 11:12:42 08/09/19 24 08/10/2023 COMP. METAB OLIC PANEL (14) globulin, total 4.1 g/dL 1.5-4. 5 Not Available [facility] ([facility]) [address] [place], [address], 08/10/2023 11:12:42 08/09/19 24 08/10/2023 COMP. METAB OLIC PANEL (14) A/G ratio 1.0 1.2-2. 2 below low normal Not Available [facility] ([facility]) [address] [place], [address], 08/10/2023 11:12:42 08/09/19 24 08/10/2023 COMP. METAB OLIC PANEL (14) bilirubin, total 1.0 mg/dL 0.0-1. 2 Not Available [facility] ([facility]) [address] [facility], [place], [address], 08/10/2023 11:12:42 08/09/19 24 08/10/2023 COMP. METAB OLIC PANEL (14) alkaline phosphatase 85 IU/L 44-121 Not Available [facility] ([facility]) [address] [facility], [place], [address], 08/10/2023 11:12:42 08/09/19 24 08/10/2023 COMP. METAB OLIC PANEL (14) AST (SGOT) 74 IU/L 0-40 above high normal Not Available [facility] ([facility]) [address] [facility], [place], [address], 08/10/2023 11:12:42 08/09/19 24 08/10/2023 COMP. METAB OLIC PANEL (14) ALT (SGPT) 75 IU/L 0-44 above high normal Not Available [facility] ([facility]) [address] [facility], [place], [address], 08/10/2023 11:12:42 08/09/19 24 08/10/2023 CBC, PLATE LET, NO DIFFE RENTI AL WBC 4.6 x10e3 /uL 3.4-10 .8 Naif ified by repea t christopher sis Not Available [facility] ([facility]) [address] [facility], [place], [address], 08/10/2023 11:12:44 08/09/19 24 08/10/2023 CBC, PLATE LET, NO DIFFE RENTI AL RBC 4.66 x10e6 /uL 4.14-5 .80 Not Available [facility] ([facility]) [address] [place], [address], 08/10/2023 11:12:44 08/09/19 24 08/10/2023 CBC, PLATE LET, NO DIFFE RENTI AL hemoglobin 15.0 g/dL 13.0-1 7.7 Not Available [facility] ([facility]) [address] [facility], [place], [address], 08/10/2023 11:12:44 08/09/19 24 08/10/2023 CBC, PLATE LET, NO DIFFE RENTI AL hematocrit 43.6 % 37.5-5 1.0 Not Available [facility] ([facility]) [address] [facility], [place], [address], 08/10/2023 11:12:44 08/09/19 24 08/10/2023 CBC, PLATE LET, NO DIFFE RENTI AL MCV 94 fL 79-97 Not Available [facility] ([facility]) [address] [facility], [place], [address], 08/10/2023 11:12:44 08/09/19 24 08/10/2023 CBC, PLATE LET, NO DIFFE RENTI AL MCH 32.2 pg 26.6-3 3.0 Not Available [facility] ([facility]) [address] [facility], [place], [address], 08/10/2023 11:12:44 08/09/19 24 08/10/2023 CBC, PLATE LET, NO DIFFE RENTI AL MCHC 34.4 g/dL 31.5-3 5.7 Not Available [facility] ([facility]) [address] [facility], [place], [address], 08/10/2023 11:12:44 08/09/19 24 08/10/2023 CBC, PLATE LET, NO DIFFE RENTI AL RDW 14.0 % 11.6-1 5.4 Not Available [facility] ([facility]) [address] [facility], [place], [address], 08/10/2023 11:12:44 08/09/19 24 08/10/2023 CBC, PLATE LET, NO DIFFE RENTI AL platelets 138 x10e3 /uL 150-45 0 below low normal Not Available [facility] ([facility]) [address] [facility], [place], [address], 08/10/2023 11:12:44 08/09/19 24 08/10/2023 CBC, PLATE LET, NO DIFFE RENTI AL NRBC WEDGER Not Available [facility] ([facility]) [address], [place], [address], 08/10/2023 11:12:44 04/10/19 24 04/10/2023 US, liver [facility] [address] [place] [address] Phone: Fax: Name: HERO PATINO Exam Date: 024 : [birth year] Age 72 Gender : M Access ion: [id number] Physic rudy: BRONWYN BLANCO Facili ty: [facility] Facili ty HSV: Outpat ient Exam: [...] CHANTAL DURAND Thank you for referr leighann PATINO , HERO to [facility] al. Legall y authen ticate d by POPE CHANTAL Napier 04-10 10:30: 03 CC'ed Logic: Orderi ng Provid er: BLANCO [place] Attend ing Provid er: BLANCO [place] Admitt ing Provid er: BLANCO [place] [email or web address] [facility] [address] [facility], [place], [address], 04/13/2023 17:41:14 04/25/19 24 04/25/2023 CT ABD w/w/O [facility] [address] [facility] [address] [place] [address] Phone: Fax: Name: HERO PATINO Exam Date: : [birth year] Age 72 Gender : M Access ion: [id number] Physic rudy: BRONWYN BLANCO Facili ty: [facility] Facili ty HSV: Outpat ient Exam: CT [...] mass measur ing 4 cm in the urologist ior right kidney . There is also a 1.[address] nonenh ancing mass in the urologist ior left kidney . A 5 mm [...] Thank you for referr HER[facility] to [facility]. Legall y authen ticate d by POPE CHANTAL Napier 04-25 11:35: 24 CC'ed Logic: Orderi ng Provid er: BLANCO [place]YN [place] Attend ing Provid er: BLANCO [place] Admitt ing Provid er: BLANCO BRONWYN [place] [facility] [address] [place] [address], [place], [address], 04/27/2023 14:25:16 08/15/19 24 08/15/2023 CT BX of liver -need le [facility] al [address] [place] [address] Phone: Fax: Name: HERO PATINO Exam Date: 08/15/19 24 : [birth year] Age 72 years Gender : M Access ion: [id number] Physic rudy: BRONWYN [place]ANCO [place] Facili [place]: [facility] Facili ty HSV: Outpat ient Exam: CT [...] DR. CHANTAL DURAND. TRANSC RIBED BY CAMERON MIX, PAC. Dictat ed By: CHANTAL DURAND Dictat ed Date: 08/15/19 9:17:2 0 AM Electr onical ly signed by: CHANTAL DURAND 08/15/19 Thank you for referr HERO Arzola to [facility]. Legall y authen ticate d by POPE CHANTAL Napier 08-14 09:11: 59 CC'ed Logic: Orderi ng Provid er: BLANCO [place]YN [place] Attend ing Provid er: BLANCO [place] Referr ing Provid er: BLANCO [place] Admitt ing Provid er: BLANCO [place] [email or web address] [facility] [address] [facility], [place], [address], 08/22/2023 12:59:58 08/15/19 24 08/15/2023 CT BX of liver -need le [facility] [address] [facility] [place] [address] Phone: Fax: Name: HERO PATINO Exam Date: 08/15/19 : [birth year] Age 72 years Gender : M Access ion: [id number] Physic rudy: BRONWYN BLANCO [place] Facili ty: [facility] Facili ty HSV: Outpat ient Exam: CT [...] you for referr ing HERO PATINO to [facility] it Hospit al. Legall y authen ticate d by POPE CHANTAL Napier 2023-0 08-14 09:17: 20 CC'ed Logic: Orderi ng Provid er: BLANCO [place]YN [place] Attend ing Provid er: BLANCO [place] Referr ing Provid er: BLANCO [place] Admitt ing Provid er: BLANCO [place] [email or web address] [facility] [address], [place], [address], 08/22/2023 12:59:58 Result Notes None recorded. Problems Name Problem SNOMED Code Status Onset Date Resolution Date Notes Provider Name and Address Organization Details Recorded Time Constipation 31530942 Active 2022 Barrera Rodney PA-C [address] [facility], [place], [address] , [facility] - [facility] & [place] 3 09:28:37 Problem Notes None recorded. Procedures Surgical History Date Name Laterality Status Provider Name and Address Organization Details Recorded Time 4 Procedure Note completed BRIAN BLANCO MSN, SPLIT LEATHER MOSSER, CANAL EQUIPMENT MAINTENANCE SUPERVISOR-C [address] [facility] [facility], [place], [address], [place] - [facility] - [place] & [place] 08/09/2023 09:21:29 4 Procedure Note completed BRIAN BLANCO MSN, SPLIT LEATHER MOSSER, CANAL EQUIPMENT MAINTENANCE SUPERVISOR-C [address] [facility] [facility], [place], [address], [place] - [facility] - [place] & [place] 05/14/2023 09:32:45 4 Procedure Note completed BRIAN BLANCO MSN, SPLIT LEATHER MOSSER, CANAL EQUIPMENT MAINTENANCE SUPERVISOR-C [address] [facility] [facility], [place], [address], [place] - [facility] - [place] & [place] 04/02/2023 11:35:51 hernia repair completed Emma Ramirez [place] - [facility] - [place] & [place] 09/13/2022 08:53:22 Imaging Results Imaging Date Name Status LastModified by [email or web address] Details LastModified Time 04/10/2023 US, liver completed [email or web address] [facility] [address], [place], [address], 04/13/2023 17:41:14 04/25/2023 CT ABD w/w/O completed [email or web address] [facility] [address], [place], [address], 04/27/2023 14:25:16 08/15/2023 CT BX of liver-needl e completed [email or web address] [facility] [address], [place], [address], 08/22/2023 12:59:58 08/15/2023 CT BX of liver-needl e completed [email or web address] [facility] [address] , [place], [address], 08/22/2023 12:59:58 Procedure Notes None recorded. Medical [...] Address Organization Details Last Updated DateTime 03/15/2022 61868.48 g 137 mm[Hg] 84 mm[Hg] Jovanna Hood [facility] & [place] 03/15/2022 09:18:03 Date Recorded Body weight Body mass index (BMI) Body height Body temperature Oxygen saturation Oxygen saturation in Arterial blood by Pulse oximetry Systolic blood pressure Diastolic blood pressure Provider Name and Address Organization Details Last Updated DateTime 3 14440.6 5 g 25.3 kg/m2 175.26 cm 98.2 [degF] 97 % 97 % 134 mm[Hg] 81 mm[Hg] Emma Ramirez [facility] & [place] 3 08:57:20 Date Recorded Body height Body mass index (BMI) Body weight Body temperature Oxygen saturation Oxygen saturation in Arterial blood by Pulse oximetry Heart rate Heart rate Systolic blood pressure Diastolic blood pressure Provider Name and Address Organization Details Last Updated DateTime 4 175.26 cm 27.1 kg/m2 55550.9 2 g 97.5 [degF] 99 % 99 % 63 /min 59 /min 164 mm[Hg] 87 mm[Hg] Naz Sung [facility] & [place] 4 09:42:18 Date Recorded Body height Body mass index (BMI) Body weight Body temperature Oxygen saturation Oxygen saturation in Arterial blood by Pulse oximetry Heart rate Heart rate Systolic blood pressure Diastolic blood pressure Provider Name and Address Organization Details Last Updated DateTime 4 175.26 cm 26.7 kg/m2 23088.2 2 g 98.1 [degF] 98 % 98 % 64 /min 61 /min 127 mm[Hg] 71 mm[Hg] Emma Ramirez [facility] & [place] 4 09:31:10 Date Recorded Body height Body mass index (BMI) Body weight Body temperature Oxygen saturation Oxygen saturation in Arterial blood by Pulse oximetry Heart rate Heart rate Systolic blood pressure Diastolic blood pressure Provider Name and Address Organization Details Last Updated DateTime 4 175.26 cm 25.9 kg/m2 92182.1 8 g 97.7 [degF] 99 % 99 % 52 /min 55 /min 133 mm[Hg] 70 mm[Hg] Naz Sung [facility] & [place] 08:58:27 Social History Question Answer Notes LastModified by [employer] Details LastModified Time Tobacco Smoking Status Never Smoker Emma Ramirez [facility] & [place] 09/13/2022 08:53:57 What Is Your Level Of Caffeine Consumption? Moderate [email or web address] Information not available 09/13/2022 Sex: Unknown Functional Status Question Answer Note LastModified by [employer] Details LastModified Time Do you use any illicit or recreational drugs? No [email or web address] Information not available 09/13/2022 Do you or have you ever used any other forms of tobacco or nicotine? No [email or web address] Information not available 09/13/2022 What is your level of alcohol consumption? None [email or web address] Information not available 09/13/2022 Mental Status None recorded. Family History Relationship [...] SNOMED-CT Code Diagnosis ICD10 Code Diagnosis Note [id number] Katelyn Gonzalez NP [facility] [place] 8071924-967 2 03/15/2022 08:56:58 03/15/2022 10:28:25 History of polyp of colon 519461144 Z86.010 - colonoscop y scheduled History of heartburn 333 4053795 9109 Z87.19 - famotidine once daily or as needed- stay upright 30-60 minutes after eating- avoid trigger foods [id number] Barrera Rodney PA-C [facility] [place] [address] 2 09/13/2022 08:37:06 09/13/2022 09:23:23 Constipation 12750310 K59.00 History of polyp of colon 014483608 Z86.010 History of heartburn 529 1119237 9109 Z87.19 558094 Hector Cabezas MD [facility] [place] [address] 2 04/02/2023 09:30:18 04/02/2023 11:06:32 Liver enzymes level above reference range 450577968 R74.01 Constipation 43156796 K5 9.00 History of polyp of colon 929957938 Z86.010 History of heartburn 585 3141867 9109 Z87.19 346085 Hector Cabezas MD [facility] [place] 8071924-[address] 2 05/14/2023 09:25:52 05/14/2023 10:26:30 Liver enzymes level above reference range 113769893 R74.01 Constipation 10952469 K5 9.00 History of polyp of colon 291858061 Z86.010 History of heartburn 778 1143446 9109 Z87.19 Anti-nucle ar factor detected 943074898 R76.8 [id number] Hector Cabezas MD [facility] [place] [address] 2 08/09/2023 08:35:27 08/09/2023 09:47:48 Liver enzymes level above reference range 270902296 R74.01 Constipation 87984451 K5 9.00 History of polyp of colon 318057657 Z86.010 History of heartburn 873 7971815 9109 Z87.19 Anti-nucle ar factor detected 189324677 R76.8 Health Concerns Section Related Observation LastModified by Organization Detai ls LastModified Time None Recorded Concern Status LastModified by Organization Details LastModified Time None Recorded Advance Directives Directive None Recorded Payers Insurance Date Sequence Insurance Name Policy Number Policy Vides Covered Member ID Vides Member ID Guarantor Name 06/09/2024 1 [employer] (MEDICARE REPLACEMENT/A DVANTAGE - PPO) Hero Patino [id number] Hero Patino Notes Date Note Type Note Provider Name and Address Organization Details Recorded Time 03/15/2022 text/html Patient is a 71-year-old male here today for follow-up after colonoscopy done 01/31/[address] Viera in [place]. referral was for repeat evaluation by Dr [...] Denies complaints or concerns otherwise Katelyn Gonzalez, WEDGER [address] [facility], [place], [address], [facility] - [place] & [place] 03/15/2022 11:58:50 09/13/2022 text/html PREVIOUS (03/15/22 ): Patient is a 71-year-old male here today for follow-up after colonoscopy done 01/31/[address] Viera in [place]. referral was for repeat evaluation by Dr [...] year repeat was recommended. Barrera Rodney PA-C [address] , [place], [address], [place] - [facility] - [place] & [place] 09/13/2022 16:00:36 04/02/2023 text/html PREVIOUS (03/15/22 Tiffanie Gonzalez): Patient is a 71-year-old male here today for follow-up after colonoscopy done 01/31/[address] Viera in [place]. referral was for repeat evaluation by Dr [...] bowel movements per day. BRIAN BLANCO MSN, SPLIT LEATHER MOSSER, CANAL EQUIPMENT MAINTENANCE SUPERVISOR-C [address] [facility] [facility], [place], [address], [facility] - [place] - [place] & [place] 04/02/2023 11:56:15 05/14/2023 text/html PREVIOUS (03/15/22 Tiffanie Gonzalez): Patient is a 71-year-old male here today for follow-up after colonoscopy done 01/31/[address] Viera in [place]. referral was for repeat evaluation by Dr [...] 3 year repeat was recommended. CURRENT (04/02/23 B. Blanco): Mr. Patino presents to [...] soft bowel movements per day. CURRENT (05/14/23 B. Blanco): Mr. Patino presents to [...] hematemesis, hematochezia or melena. BRIAN BLANCO MSN, SPLIT LEATHER MOSSER, CANAL EQUIPMENT MAINTENANCE SUPERVISOR-C [address], [place], [address], [place] - [facility] - [place] & [place] 05/14/2023 12:57:53 08/09/2023 text/html PREVIOUS (03/15/22 Tiffanie Gonzalez): Patient is a 71-year-old male here today for follow-up after colonoscopy done 01/31/[address] Viera in [place]. referral was for repeat evaluation by Dr [...] 3 year repeat was recommended. PREVIOUS (04/02/23 Marlo Blanco): Mr. Patino presents to [...] soft bowel movements per day. PREVIOUS (05/14/23 Marlo Blanco): Mr. Patino presents to the [...] ascites, hematemesis, hematochezia or melena. CURRENT (08/09/23 Marlo Blanco): Mr. Patino presents to the clinic today for follow-up. [facility] never called him to schedule his [...] hematemesis, hematochezia or melena. BRIAN BLANCO MSN, SPLIT LEATHER MOSSER, CANAL EQUIPMENT MAINTENANCE SUPERVISOR-C [address] [facility], [place], [address], [facility] - [place] & [place] 08/09/2023 10:07:11
--- OUTSIDE RECORDS SUMMARY | 2024-07-25 07:27 | XMS_ITS | Continuity of Care Document ---
Author Name [facility] Organization [facility] Care Team Providers Care Billing Spec Name Role Phone [facility] Unavailable Unavailable Immunizations Combined list of available immunizations from the Department of Defense and Veterans Affairs facilities. Immunization Series Date Given Administered By Site Reaction Lot Number CVX Code Drug Restaurant Manager Status Comments Source FLU,3 YRS (HISTORICAL) 2006 86 [facility] [place] [facility]
[2024-07-25 07:53] LABS: Basophils % 0.4 % (0.1-2.0); Eosinophils # 0.1 Kmm3 (0.0-0.4); Eosinophils % 1.2 % (0.1-12.0); Hemoglobin 14.4 g/dL (14.1-18.0); Immature Granulocytes # 0.01 10^3uL; Immature Granulocytes % 0.2 %; Lymphocytes # 1.9 K/mm3 (0.7-4.5); Lymphocytes % 39.3 % (10-50); Mean Corpuscular HGB Conc 32.7 g/dL (31.8-35.4); Mean Corpuscular Hemoglobin 31.7 pg (27.0-31.2); Mean Corpuscular Volume 96.9 fl (80-94); Mean Platelet Volume 9.9 fl (7.4-10.4); Monocytes # 0.4 K/mm3 (0.1-1.0); Monocytes % 8.9 % (1.7-9.3); Neutrophils # 2.5 K/mm3 (1.8-7.8); Nucleated Red Blood Cells # 0 10^3/uL; Nucleated Red Blood Cells % 0 %; Platelet Count 135 K/mm3 (142-424); Red Blood Count 4.54 M/mm3 (4.60-6.20); Red Cell Distribution Width 13.3 % (11.5-17.5); Red Cell Distribution Width-SD 47.3 fL; White Blood Count 4.9 K/mm3 (4.8-10.8)
[2024-07-25 08:24] LABS: Albumin Level 4.2 g/dl (3.5-5.0); Chloride 106 mmol/L (98-107); Sodium 141 mmol/L (136-145)
[2024-07-25 08:27] LABS: Alanine Aminotransferase 27 U/L (12-78); Albumin/Globulin Ratio 1.6 (1.1-1.8); Alkaline Phosphatase 70 U/L (38-126); Aspartate Amino Transferase 31 U/L (17-59); Blood Urea Nitrogen 17 mg/dl (9-20); Calcium 9.5 mg/dl (8.4-10.2); Carbon Dioxide 31 mmol/L (22.0-30.0); Estimated Glomerular Filt Rate 82 ml/min (>60); GFR (African American) 100 ML/MIN (>60); Globulin 2.7 g/dL (1.3-3.2); Glucose 110 mg/dl (74-100); Total Protein,Serum 6.9 g/dl (6.3-8.2)
[2024-07-26 10:27] LABS: Immunoglobulin G, Qn 1212 mg/dL (603-1613)
== END 2024-07-25 23:59 | disposition home or self-care (01) ==
LOC: LAB 07:25
PROVIDERS: PCP Family Medicine; Visit Provider Internal Medicine Gastroenterology
DX: K75.4 Autoimmune hepatitis (principal); K74.60 Unspecified cirrhosis of liver
CPT/HCPCS: 36415; 80053; 82784; 85025

== ENCOUNTER 2024-07-30 09:44 | Outpatient (CLI) | payer MEDICARE, SELFPAY ==
--- OUTSIDE RECORDS SUMMARY | 2024-07-30 09:46 | XMS_ITS | Continuity of Care Document ---
Author Name [facility] Organization [facility] Care Team Providers Care Button Riveter Name Role Phone [facility] Unavailable Unavailable Immunizations Combined list of available immunizations from the Department of Defense and Veterans Affairs facilities. Immunization Series Date Given Administered By Site Reaction Lot Number CVX Code Drug Work Environment Safety Inspector Status Comments Source FLU,3 YRS (HISTORICAL) 2006 88 [facility] [place] [facility]
--- OUTSIDE RECORDS SUMMARY | 2024-07-30 09:47 | XMS_ITS | Data Portability ---
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 3 year repeat was recommended. He plans to have this done with Dr. Viera at [facility]. 2) Constipation: Well managed on Miralax once daily. 3) Heartburn: Resolved. He has stopped acid reducing medications. f/u PRN [email or web address] Not available 09/13/2022 16:00:19 04/02/2023 04/02/2023 71-year-old male with: 1) Elevated liver enzymes -Will obtain lab workup per below to rule out hepatitis, autoimmune, or hereditary/metabo lic causes. -Will order liver ultrasound -Unable to perform NOLASCO Fibrosure test today as patient is not fasting. Patient was given printed lab order and instructed to get this lab drawn at [facility] when he is fasting and goes [...] have this done with Dr. Viera at [facility]. 3) Constipation: Well managed on Miralax once daily. 4) Heartburn: Resolved. He has stopped acid reducing medications. f/u 6 weeks [email or web address] Not available 04/02/2023 11:55:33 05/14/2023 05/14/2023 72-year-old [...] order CT guided liver biopsy at [facility] for further evaluation -Diet and exercise counseled [...] have this done with Dr. Viera at [facility]. 4) Constipation: Well managed on Miralax once daily. 5) Heartburn: Resolved. He has stopped acid reducing medications. F/u after liver biopsy Not available 05/14/2023 12:55:05 08/09/2023 08/09/2023 72-year-old [...] -Will order CT guided liver biopsy at [facility]. Order was sent to [facility] Interventional Radiology x2, the patient was never called to schedule the procedure. Ordered liver biopsy to be performed at [place] yesterday. -Diet and exercise counseled -Continue to [...] have this done with Dr. Viera at [facility]. 4) Constipation: Well managed on Miralax once daily. 5) Heartburn: Resolved. He has stopped acid reducing medications. F/u after liver biopsy Not available 08/09/2023 10:06:50 Plan of Treatment Reminders Order Date Submit Date Provider Last Modified By Organization Details Last Modified Time Details Appointments None recorded. Lab CBC 2023 024 [facility], [address], [address], [place], [address], 4 11:12:44 CMP, serum or plasma 2023 024 [facility], [address], [address], [place], [address], 4 11:12:42 hepatic function panel, serum 2023 024 [facility], [address], [address], [place], [address], 4 11:14:13 hepatitis panel (A+B+C), acute, serum 2023 024 [facility], [address], [address], [place], [address], 4 11:14:15 hepatitis B surface Ab, quantitat pepe, serum 2023 024 [facility], [address], [address], [place], [address], 4 11:14:20 hepatitis A virus Ab, qualitati ve, immunoass ay, serum 2023 024 [facility], [address], [address], [place], [address], 4 11:14:27 actin smooth muscle IgG Ab, quant, serum 2023 024 [facility], [address], [address], [place], [address], 4 11:14:21 mitochond rial M2 igg Ab, serum 2023 024 [facility], [address], [address], [place], [address], 4 11:14:22 igg, quantitat pepe, serum 2023 024 [facility], [address], [address], [place], [address], 4 11:14:25 GONZALO (antinucl ear antibodie s) screen, serum 2023 024 [facility], [address], [address], [place], [address], 4 11:14:23 HFE gene mutation analysis, blood or tissue 2023 024 [facility], [address], [address], [place], [address], 4 11:14:18 iron + TIBC + ferritin, serum 2023 024 [facility], [address], [address], [place], [address], 4 11:14:09 alpha-1-a ntitrypsi n (aat), QN, serum 2023 024 [email or web address] [facility], [address], [address], [place], [address], 4 10:37:40 alpha-1-a ntitrypsi n (aat), QN, serum 2023 024 [facility], [address], [address], [place], [address], 4 11:14:14 CBC 2023 024 [facility], [address], [address], [place], [address], 4 11:14:12 PT/INR 2023 024 [facility], [address], [address], [place], [address], 4 11:14:16 nonalcoho lic steatohep atitis + fibrosis panel, serum or plasma 2023 024 [facility], [address], [address], [place], [address], 4 11:14:10 afp (alpha-fe toprotein ) tumor marker, serum or plasma 2023 024 [facility], [address], [address], [place], [address], 4 11:14:19 Referral None recorded. Procedures biopsy, [...] Family history of liver disease. [address] [facility], [address], [place], [address], 4 13:49:01 Surgeries None recorded. Imaging US, liver 2023 024 [facility] (Centralized Scheduling), [address] [facility], [place], [address], 4 10:48:53 Medication Orders polyethyl jeffrey glycol 3350 17 gram/dose oral powder 2022 024 [facility], [address] [place] [address], [facility], [place], [address], 4 10:33:01 famotidin e 20 mg tablet 2022 023 [email or web address] [facility], [address] [place] [address], [facility], [place], [address], 4 10:15:02 Patient TargetsNo targets recorded. Patient InstructionsNo instructions recorded. Reason for Referral None Reported. Results Created Date Observation Date Name Description Value Unit Range Abnormal Flag Note LastModifiedBy Organization Detail LastModifiedTime 04/02/19 24 04/03/2023 FE+TI BC+FE R iron bind.cap.(TI BC) 396 ug/dL 250-45 0 Not Available [facility] ([facility]) [address] [place], [address], 04/19/2023 11:14:04/02/19 24 04/03/2023 FE+TI BC+FE R UIBC 168 ug/dL 111-34 3 Not Available [facility] ([facility]) [address] [place], [address], 04/19/2023 11:14:09 04/02/19 24 04/03/2023 FE+TI BC+FE R iron 228 ug/dL 38-169 above high normal Not Available [facility] ([facility]) [address] [place], [address], 04/19/2023 11:14:09 04/02/19 24 04/03/2023 FE+TI BC+FE R iron saturation 58 % 15-55 above high normal Not Available [facility] ([facility]) [address] [place], [address], 04/19/2023 11:14:09 04/02/19 24 04/03/2023 FE+TI BC+FE R ferritin 66 NG/mL 30-400 Not Available [facility] ([facility]) [address] [place], [address], 04/19/2023 11:14:04/02/19 24 04/02/2023 NOLASCO FIBRO SURE( R) PLUS methodology: COMMEN T The christopher margaret teste d are perfo rmed by Fibro Sure- Speci fic metho ds. Not inten ded for use with other diagn ostic consi derat ions. Not Available [facility] ([facility]) [address] [place], [address], 04/19/2023 11:14:10 04/02/19 24 04/02/2023 NOLASCO FIBRO SURE( R) PLUS interpretati ons: COMMEN T Quant itati ve resul ts of 10 bioch emica ls in combi natio n with age and gende r, are christopher zed using a compu tatio nal algor ithm to provi de a quant itati ve surro gate marke r (0.0- 1.0) of liver fibro sis ([place] vir F0-F4 ), hepat ic steat osis [...] had signi fican t NAFLD fibro sis ([place] vir F2-F4 ) and 11% had cirrh [...] y of 71%.[ 3] Not Available [facility] ([facility]) [address] [facility], [place], [address], 04/19/2023 11:14:10 04/02/19 24 04/02/2023 NOLASCO FIBRO [...] F4 - Cirrh osis Not Available [facility] ([facility]) [address] [place], [address], 04/19/2023 11:14:10 04/02/19 24 04/02/2023 NOLASCO FIBRO SURE( R) PLUS steatosis scoring COMMEN T <=0.4 0 = S0 - No Steat osis (<5%) 0.40 - 0.55 = S1 - Mild Steat osis (but Clini koki Signi fican t) (5-33 %) >0.55 = S2S3- Moder ate to Sever e Steat osis (Clin icall y Signi fican t) (34-1 00%) Not Available [facility] ([facility]) [address] [place], [address], 04/19/2023 11:14:10 04/02/19 24 04/02/2023 NOLASCO FIBRO SURE( R) PLUS nolasco scoring COMMEN T <=0.2 5 = N0 - No NOLASCO 0.25 - 0.50 = N1 - Mild NOLASCO 0.50 - 0.75 = N2 - Moder ate NOLASCO >0.75 = N3 - Sever e NOLASCO Not Available [facility] ([facility]) [address] [place], [address], 04/19/2023 11:14:10 04/02/19 24 04/02/2023 NOLASCO FIBRO [...] s of fibro sis. Not Available [facility] ([facility]) [address], [place], [address], 04/19/2023 11:14:10 04/02/19 24 04/02/2023 NOLASCO FIBRO [...] conta ct custo reid servi ce at [phone]. Refer ences : 1. Marciano Galloway et [...] July; 30:56 9-577 . Not Available [facility] ([facility]) [address] [facility], [place], [address], 04/19/2023 11:14:10 04/02/19 24 04/03/2023 NOLASCO FIBRO SURE( R) PLUS fibrosis score 0.89 0.00-0 .21 above high normal Not Available [facility] ([facility]) [address] [facility], [place], [address], 04/19/2023 11:14:10 04/02/19 24 04/03/2023 NOLASCO FIBRO SURE( R) PLUS fibrosis stage COMMEN T F4 - Cirrh osis Not Available [facility] ([facility]) [address] [facility], [place], [address], 04/19/2023 11:14:10 04/02/19 24 04/03/2023 NOLASCO FIBRO SURE( R) PLUS steatosis score 0.50 0.00-0 .40 above high normal Not Available [facility] ([facility]) [address] [facility], [place], [address], 04/19/2023 11:14:10 04/02/19 24 04/03/2023 NOLASCO FIBRO SURE( R) PLUS steatosis grade COMMEN T S1 - Mild Steat osis (But Clini koki Signi fican t) (5-33 %) Not Available [facility] ([facility]) [address] [place], [address], 04/19/2023 11:14:10 04/02/19 24 04/03/2023 NOLASCO FIBRO SURE( R) PLUS nolasco score 0.96 0.00-0 .25 above high normal Not Available [facility] ([facility]) [address] [place], [address], 04/19/2023 11:14:10 04/02/19 24 04/03/2023 NOLASCO FIBRO SURE( R) PLUS nolasco grade COMMEN T N3 - Sever e NOLASCO Not Available [facility] ([facility]) [address] [facility], [place], [address], 04/19/2023 11:14:10 04/02/19 24 04/03/2023 NOLASCO FIBRO SURE( R) PLUS alpha 2-macroglobu mason, qn 526 mg/dL 110-27 6 above high normal Not Available [facility] ([facility]) [address] [facility], [place], [address], 04/19/2023 11:14:10 04/02/19 24 04/03/2023 NOLASCO FIBRO SURE( R) PLUS haptoglobin 119 mg/dL 34-355 Not Available [facility] ([facility]) [address] [facility], [place], [address], 04/19/2023 11:14:10 04/02/19 24 04/03/2023 NOLASCO FIBRO SURE( R) PLUS apolipoprote in A-1 150 mg/dL 101-17 8 Not Available [facility] ([facility]) [address] [place], [address], 04/19/2023 11:14:10 04/02/19 24 04/03/2023 NOLASCO FIBRO SURE( R) PLUS bilirubin, total 0.9 mg/dL 0.0-1. 2 Not Available [facility] ([facility]) [address] [place], [address], 04/19/2023 11:14:10 04/02/19 24 04/03/2023 NOLASCO FIBRO SURE( R) PLUS GGT 61 IU/L 0-65 Not Available [facility] ([facility]) [address] [place], [address], 04/19/2023 11:14:10 04/02/19 24 04/03/2023 NOLASCO FIBRO SURE( R) PLUS ALT (SGPT) p5p 131 IU/L 0-55 above high normal Not Available [facility] ([facility]) [address] [place], [address], 04/19/2023 11:14:10 04/02/19 24 04/03/2023 NOLASCO FIBRO SURE( R) PLUS AST (SGOT) p5p 108 IU/L 0-40 above high normal Not Available [facility] ([facility]) [address] [place], [address], 04/19/2023 11:14:10 04/02/19 24 04/03/2023 NOLASCO FIBRO SURE( R) PLUS cholesterol, total 246 mg/dL 100-19 9 above high normal Not Available [facility] ([facility]) [address] [place], [address], 04/19/2023 11:14:10 04/02/19 24 04/03/2023 NOLASCO FIBRO SURE( R) PLUS glucose, serum 83 mg/dL 70-99 Not Available [facility] ([facility]) [address] [place], [address], 04/19/2023 11:14:10 04/02/19 24 04/03/2023 NOLASCO FIBRO SURE( R) PLUS triglyceride s 184 mg/dL 0-149 above high normal Not Available [facility] ([facility]) [address] [place], [address], 04/19/2023 11:14:10 04/02/19 24 04/03/2023 CBC, PLATE LET, NO DIFFE RENTI AL WBC 5.5 x10e3 /uL 3.4-10 .8 Not Available [facility] ([facility]) [address] [place], [address], 04/19/2023 11:14:12 04/02/19 24 04/03/2023 CBC, PLATE LET, NO DIFFE RENTI AL RBC 5.16 x10e6 /uL 4.14-5 .80 Not Available [facility] ([facility]) [address] [place], [address], 04/19/2023 11:14:12 04/02/19 24 04/03/2023 CBC, PLATE LET, NO DIFFE RENTI AL hemoglobin 16.7 g/dL 13.0-1 7.7 Not Available [facility] ([facility]) [address] [facility], [place], [address], 04/19/2023 11:14:12 04/02/19 24 04/03/2023 CBC, PLATE LET, NO DIFFE RENTI AL hematocrit 48.4 % 37.5-5 1.0 Not Available [facility] ([facility]) [address] [facility], [place], [address], 04/19/2023 11:14:12 04/02/19 24 04/03/2023 CBC, PLATE LET, NO DIFFE RENTI AL MCV 94 fL 79-97 Not Available [facility] ([facility]) [address] [facility], [place], [address], 04/19/2023 11:14:12 04/02/19 24 04/03/2023 CBC, PLATE LET, NO DIFFE RENTI AL MCH 32.4 pg 26.6-3 3.0 Not Available [facility] ([facility]) [address] [facility], [place], [address], 04/19/2023 11:14:12 04/02/19 24 04/03/2023 CBC, PLATE LET, NO DIFFE RENTI AL MCHC 34.5 g/dL 31.5-3 5.7 Not Available [facility] ([facility]) [address] [facility], [place], [address], 04/19/2023 11:14:12 04/02/19 24 04/03/2023 CBC, PLATE LET, NO DIFFE RENTI AL RDW 13.3 % 11.6-1 5.4 Not Available [facility] ([facility]) [address] [facility], [place], [address], 04/19/2023 11:14:12 04/02/19 24 04/03/2023 CBC, PLATE LET, NO DIFFE RENTI AL platelets 167 x10e3 /uL 150-45 0 Not Available [facility] ([facility]) [address] [facility], [place], [address], 04/19/2023 11:14:12 04/02/19 24 04/03/2023 CBC, PLATE LET, NO DIFFE RENTI AL 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 5 above high normal Not Available [facility] ([facility]) [address] [facility], [place], [address], 04/19/2023 11:14:13 04/02/19 24 04/03/2023 HEPAT IC FUNCT ION PANEL (7) albumin 4.8 g/dL 3.8-4. 8 Not Available [facility] ([facility]) [address] [facility], [place], [address], 04/19/2023 11:14:13 04/02/19 24 04/03/2023 HEPAT IC FUNCT ION PANEL (7) bilirubin, total 0.9 mg/dL 0.0-1. 2 Not Available [facility] ([facility]) [address] [facility], [place], [address], 04/19/2023 11:14:13 04/02/19 24 04/03/2023 HEPAT IC FUNCT ION PANEL (7) bilirubin, direct 0.25 mg/dL 0.00-0 .40 Not Available [facility] ([facility]) [address] [facility], [place], [address], 04/19/2023 11:14:13 04/02/19 24 04/03/2023 HEPAT IC FUNCT ION PANEL (7) alkaline phosphatase 107 IU/L 44-121 Not Available [facility]) [address] [facility], [place], [address], 04/19/2023 11:14:13 04/02/19 24 04/03/2023 HEPAT IC FUNCT ION PANEL (7) AST (SGOT) 97 IU/L 0-40 above high normal Not Available [facility] ([facility]) [address] [facility], [place], [address], 04/19/2023 11:14:13 04/02/19 24 04/03/2023 HEPAT IC FUNCT ION PANEL (7) ALT (SGPT) 106 IU/L 0-44 above high normal Not Available [facility] ([facility]) [address] [facility], [place], [address], 04/19/2023 11:14:13 04/02/19 24 04/02/2023 A1A, QUANT [...] ders to discu ss resul ts at [phone] -[phone]- GENE (7362 ). Test Detai ls: Two varia nts [...] es in the SERPI NA1 gene (NM_[id number] .[id number]) was perfo rmed by multi plex [...] RA, Duke anderson G, Rk ly ML, Fillmore s M, Cross CE, Nava an K, Awilda cox DK, Gayathri t SL, Dioni sams JM, Yuval pittman JK, Ronal mae C, Mary Jade. The Diagn osis and Manag ement of Alpha -1 Antit rypsi n Defic iency in the Adult . Chron ic Obstr Pulm Dis. 2016 Aug 15;3(3 ):668 -682. doi: 10.15 326/j copdf .3.2014. 0182. PMID: 74551 891; PMCID : PMC55 60594 . Yuval GRIFFITH, Glynn burton V, Monroe SANTOS. Alpha -1 Antit rypsi n Defic iency . 2005Jan 05 [Upda bhavesh 2019July 30]. In: Franklin MP, Lane [facility], Severino MEADOWS, et al., kanwal rs. GeneR james sams(R) [Inte rnet] . Girish dawson ([place]): [facility] of Girish Segura; 1992- 2020. Avail able from: https ://dean w.ncb i.nlm .nih. gov/b ooks/ NBK15 19/ Not Available [facility] ([facility]) [address] [place], [address], 04/19/2023 11:14:14 04/02/19 24 04/04/2023 A1A, QUANT +OH TYPE( RFX PHENO ) rdpni-0-shyr trypsin, serum 165 mg/dL 101-18 7 Not Available [facility] ([facility]) [address] [place], [address], 04/19/2023 11:14:14 04/02/19 24 04/10/2023 A1A, QUANT [...] n and Comme nts. Not Available [facility] ([facility]) [address] [facility], [place], [address], 04/19/2023 11:14:14 04/02/19 24 04/10/2023 A1A, QUANT +OH TYPE( RFX PHENO ) electronical ly signed by: CINDA MORFIN, PHD Not Available [facility] ([facility]) [address] [place], [address], 04/19/2023 11:14:14 04/02/19 24 04/10/2023 A1A, QUANT +OH TYPE( RFX PHENO ) a1a rfx to phenotype NOT INDICA BHAVESH Not Available [facility] ([facility]) [address] [place], [address], 04/19/2023 11:14:14 04/02/19 24 04/03/2023 ACUTE HEPAT ITIS hep A Ab, IgM NEGATI VE negati ve Not Available [facility] ([facility]) [address] [place], [address], 04/19/2023 11:14:15 04/02/19 24 04/03/2023 ACUTE HEPAT ITIS HBsAg screen NEGATI VE negati ve Not Available [facility] ([facility]) [address] [place], [address], 04/19/2023 11:14:15 04/02/19 24 04/03/2023 ACUTE HEPAT ITIS hep B core Ab, IgM NEGATI VE negati ve Not Available [facility] ([facility]) [address] [facility], [place], [address], 04/19/2023 11:14:15 04/02/19 24 04/03/2023 ACUTE HEPAT ITIS HCV Ab NON REACTI VE non reacti ve Not Available [facility] ([facility]) [address] [facility], [place], [address], 04/19/2023 11:14:15 04/02/19 24 04/03/2023 ACUTE HEPAT ITIS interpretati on: COMMEN T Not infec bhavesh with HCV unles s early or acute infec tion is suspe cted (whic h may be delay ed in an immun ocomp romis ed indiv idual ), or other evide nce exist s to indic ate HCV infec tion. Not Available [facility] ([facility]) [address] [facility], [place], [address], 04/19/2023 11:14:15 04/02/19 24 04/03/2023 PROTH ROMBI [...] range 2.5 - 3.5 Not Available [facility] ([facility]) [address] [facility], [place], [address], 04/19/2023 11:14:16 04/02/19 24 04/03/2023 PROTH ROMBI N TIME (PT), SERIA L prothrombin time 12.0 sec 9.1-12 .0 Not Available [facility] ([facility]) [address] [facility], [place], [address], 04/19/2023 11:14:16 04/02/19 24 04/03/2023 PROTH ROMMONET N TIME (PT), SERIA L pdf . Not Available [facility] ([facility]) [address], [place], [address], 04/19/2023 11:14:16 04/02/19 24 04/18/2023 HERED .HEMO [...] ders to discu ss resul ts at 4-135 -345- GENE (2868 ). Test Detai ls: Three varia nts christopher zed: c.845 G>A (p.Cy s282T yr), commo nly refer red to as C282Y c.187 C>G (p.Hi s63As p), commo nly refer red to as H63D c.193 A> T (p.Se r65Cy s), commo nly refer red to as S65C Metho ds/Li mitat ions: DNA Christopher sis of the HFE gene (NM_[id number] .[id number]) was perfo rmed by PCR ampli [...] error s may occur . False posit peep or false negat pepe resul ts may [...] 3. doi: 10.10 02/ p.243 30. PMID: 56413 290; PMCID : PMC31 09767 . Robert G, Shabana ot P, Brandon [...] hg.20 15.12 8. Epub 2014Sep 16. PMID: 13023 218; PMCID : PMC49 43929 . Not Available [facility] [address], [place], [address], 04/19/2023 11:14:18 04/02/19 24 04/18/2023 HERED .HEMO CHROM ATOSI S, DNA reviewed by: FAITH [employer] [place] [facility] perfo rmed at [facility] RTP Profe ssion al [place] [facility] perfo rmed by: Marcell lieberman, Ph.D. , [facility] [employer], [employer] [employer] [employer] [address] [place] [address] Not Available [facility] ([facility]) [address] [place], [address], 04/19/2023 11:14:18 04/02/19 24 04/03/2023 AFP, SERUM , TUMOR MARKE R AFP, serum, tumor marker 2.2 NG/mL 0.0-8. 4 Michelle Diagn ostic s Elect michelle milum inesc ence Immun oassa y (ECLI A) Value s obtai kali with diffe rent assay metho ds or kits canno t be used inter lewis eably . Resul ts canno t be inter prete d as absol [place] evide nce of the prese nce or absen ce of [facility] se. This test is not inter preta ble in pregn ant femal es. Not Available [facility] ([facility]) [address] [facility], [place], [address], 04/19/2023 11:14:19 04/02/19 24 04/03/2023 HEPAT ITIS B SURF AB QUANT hepatitis B surf Ab quant 3.3 mIU/m L immuni ty>9.9 below low normal Statu s of Immun ity Anti- HBs Level ----- ----- ----- --- ----- ----- ---- Incon siste nt with Immun ity 0.0 - 9.9 Consi stent with Immun ity >9.9 Not Available [facility] ([facility]) [address] [place], [address], 04/19/2023 11:14:20 04/02/19 24 04/03/2023 ACTIN (SMOO [...] bilia ry cirrh osis. Not Available [facility] ([facility]) [address] [place], [address], 04/19/2023 11:14:21 04/02/19 24 04/03/2023 MITOC HONDR IAL (M2) ANTIB LEANDRO mitochondria l (M2) antibody <20.0 units 0.0-20 .0 Negat pepe 0.0 - 20.0 Equiv ocal 20.1 - 24.9 Posit pepe >24.9 Mitoc hondr ial (M2) Antib odies are found in 90-96 % of patie nts with prima ry bilia ry cirrh osis. Not Available [facility] ([facility]) [address] [place], [address], 04/19/2023 11:14:22 04/02/19 24 04/03/2023 GONZALO W/REF SALIMA GONZALO direct POSITI VE negati ve abnormal Not Available [facility] ([facility]) [address] [place], [address], 04/19/2023 11:14:23 04/02/19 24 04/03/2023 GONZALO W/REF SALIMA anti-DNA (ds) Ab qn 27 IU/mL 0-9 above high normal Negat pepe <5 Equiv ocal 5 - 9 Posit pepe >9 Not Available [facility] ([facility]) [address] [place], [address], 04/19/2023 11:14:23 04/02/19 24 04/03/2023 GONZALO W/REF SALIMA consumer services consultant antibodies 0.8 ai 0.0-0. 9 Not Available [facility] ([facility]) [address] [place], [address], 04/19/2023 11:14:23 04/02/19 24 04/03/2023 GONZALO W/REF SALIMA carpio antibodies <0.2 ai 0.0-0. 9 Not Available [facility] ([facility]) [address] [place], [address], 04/19/2023 11:14:23 04/02/19 24 04/03/2023 GONZALO W/REF SALIMA antisclerode rma-70 antibodies 0.2 ai 0.0-0. 9 Not Available [facility] ([facility]) [address] [place], [address], 04/19/2023 11:14:23 04/02/19 24 04/03/2023 GONZALO W/REF SALIMA sjogren's anti-ss-A <0.2 ai 0.0-0. 9 Not Available [facility] ([facility]) [address] [place], [address], 04/19/2023 11:14:23 04/02/19 24 04/03/2023 GONZALO W/REF SALIMA sjogren's anti-ss-B <0.2 ai 0.0-0. 9 Not Available [facility] ([facility]) [address] [place], [address], 04/19/2023 11:14:23 04/02/19 24 04/03/2023 GONZALO W/REF SALIMA thyroid peroxidase (tpo) Ab 170 IU/mL 0-34 above high normal Not Available [facility] ([facility]) [address] [place], [address], 04/19/2023 11:14:23 04/02/19 24 04/03/2023 GONZALO W/REF SALIMA antichromati n antibodies 6.0 ai 0.0-0. 9 above high normal Not Available [facility] ([facility]) [address] [place], [address], 04/19/2023 11:14:23 04/02/19 24 04/03/2023 GONZALO W/REF SALIMA anti-centrom ere B antibodies <0.2 ai 0.0-0. 9 Not Available [facility] ([facility]) [address] [place], [address], 04/19/2023 11:14:23 04/02/19 24 04/05/2023 GONZALO W/REF SALIMA complement C3, serum 155 mg/dL 82-167 Not Available [facility] ([facility]) [address] [place], [address], 04/19/2023 11:14:23 04/02/19 24 04/05/2023 GONZALO W/REF SALIMA complement C4, serum 16 mg/dL 12-38 Not Available [facility] ([facility]) [address] [place], [address], 04/19/2023 11:14:23 04/02/19 24 04/05/2023 GONZALO W/REF SALIMA rheumatoid factor (rf) 12.2 IU/mL <14.0 Not Available [facility] ([facility]) [address] [place], [address], 04/19/2023 11:14:23 04/02/19 24 04/05/2023 GONZALO W/REF SALIMA anti-ccp Ab, IgG/IgA 14 units 0-19 Negat pepe <20 Weak posit pepe 20 - 39 Moder ate posit pepe 40 - 59 Stron g posit pepe >59 Not Available [facility] ([facility]) [address] [place], [address], 04/19/2023 11:14:23 04/02/19 24 04/05/2023 GONZALO W/REF SALIMA anticardioli pin Ab,IgG,qn 15 gpl_U /mL 0-14 above high normal Negat pepe: <15 Indet ermin ate: 15 - 20 Low-M ed Posit pepe: >20 - 80 High Posit pepe: >80 Not Available [facility] ([facility]) [address] [place], [address], 04/19/2023 11:14:23 04/02/19 24 04/05/2023 GONZALO W/REF SALIMA anticardioli pin Ab,IgM,qn 15 mpl_U /mL 0-12 above high normal Negat pepe: <13 Indet ermin ate: 13 - 20 Low-M ed Posit pepe: >20 - 80 High Posit pepe: >80 Not Available [facility] ([facility]) [address] [place], [address], 04/19/2023 11:14:23 04/02/19 24 04/05/2023 GONZALO W/REF SALIMA anticardioli pin Ab,IgA,qn <9 apl_U /mL 0-11 Negat pepe: <12 Indet ermin ate: 12 - 20 Low-M ed Posit pepe: >20 - 80 High Posit pepe: >80 Not Available [facility] ([facility]) [address] [place], [address], 04/19/2023 11:14:23 04/02/19 24 04/03/2023 IMMUN OGLOB ULIN G, QN, SERUM immunoglobul in g, qn, serum 3136 mg/dL 603-16 13 above high normal Not Available [facility] ([facility]) [address] [place], [address], 04/19/2023 11:14:25 04/02/19 24 04/03/2023 ALPHA -1-AN TITRY PSIN, SERUM [id number] trypsin, serum 157 mg/dL 101-18 7 Not Available [facility] ([facility]) [address] [place], [address], 04/19/2023 11:14:26 04/02/19 24 04/03/2023 HEP A [...] Antib leandro w/ Rfx). Not Available [facility] ([facility]) [address] [facility], [place], [address], 04/19/2023 11:14:27 04/25/19 24 04/25/2023 BUN BUN 17 mg/dL 7-18 Not Available [facility] ([facility]) [address] [facility], [place], [address], 04/25/2023 09:27:18 04/25/19 24 04/25/2023 CREAT ININE creatinine 1.0 mg/dL 0.6-1. 3 Not Available [facility] ([facility]) [address] [facility], [place], [address], 04/25/2023 09:27:20 04/25/19 24 04/25/2023 CREAT ININE glomerular filtration rate TNP mlper min 60- TEST NOT PERFO RMED GFR has only been valid ated from 18 to 70 years of age. Not Available [facility] ([facility]) [address] [facility], [place], [address], 04/25/2023 09:27:20 08/09/19 24 08/10/2023 COMP. METAB OLIC PANEL (14) glucose 86 mg/dL 70-99 Not Available [facility] ([facility]) [address] [facility], [place], [address], 08/10/2023 11:12:42 08/09/19 24 08/10/2023 COMP. METAB OLIC PANEL (14) BUN 16 mg/dL 8-27 Not Available [facility] ([facility]) [address] [facility] [place], [address], 08/10/2023 11:12:42 08/09/19 24 08/10/2023 COMP. METAB OLIC PANEL (14) creatinine 1.04 mg/dL 0.76-1 .27 Not Available [facility] ([facility]) [address] [facility] [place], [address], 08/10/2023 11:12:42 08/09/19 24 08/10/2023 COMP. METAB OLIC PANEL (14) eGFR 75 mL/mi n/1.7 3 >59 Not Available [facility] ([facility]) [address] [facility] [place], [address], 08/10/2023 11:12:42 08/09/19 24 08/10/2023 COMP. METAB OLIC PANEL (14) BUN/creatini ne ratio 15 10-24 Not Available [facility] ([facility]) [address] [facility] [place], [address], 08/10/2023 11:12:42 08/09/19 24 08/10/2023 COMP. METAB OLIC PANEL (14) sodium 137 mmol/ L 134-14 4 Not Available [facility] ([facility]) [address] [facility] [place], [address], 08/10/2023 11:12:42 08/09/19 24 08/10/2023 COMP. METAB OLIC PANEL (14) potassium 4.9 mmol/ L 3.5-5. 2 Not Available [facility] ([facility]) [address] [facility] [place], [address], 08/10/2023 11:12:42 08/09/19 24 08/10/2023 COMP. METAB OLIC PANEL (14) chloride 101 mmol/ L 96-106 Not Available [facility] ([facility]) [address] [facility], [place], [address], 08/10/2023 11:12:42 08/09/19 24 08/10/2023 COMP. METAB OLIC PANEL (14) carbon dioxide, total 24 mmol/ L Not Available [facility] ([facility] [place]) [address] [place], [address], 08/10/2023 11:12:42 08/09/19 24 08/10/2023 COMP. METAB OLIC PANEL (14) calcium 9.8 mg/dL 8.6-10 .2 Not Available [facility] ([facility]) [address] [place], [address], 08/10/2023 11:12:42 08/09/19 24 08/10/2023 COMP. METAB OLIC PANEL (14) protein, total 8.4 g/dL 6.0-8. 5 Not Available [facility] ([facility]) [address] [place], [address], 08/10/2023 11:12:42 08/09/19 24 08/10/2023 COMP. METAB OLIC PANEL (14) albumin 4.3 g/dL 3.8-4. 8 Not Available [facility] ([facility]) [address] [place], [address], 08/10/2023 11:12:42 08/09/19 24 08/10/2023 COMP. METAB OLIC PANEL (14) globulin, total 4.1 g/dL 1.5-4. 5 Not Available [facility] ([facility]) [address] [place], [address], 08/10/2023 11:12:42 08/09/19 24 08/10/2023 COMP. METAB OLIC PANEL (14) A/G ratio 1.0 1.2-2. 2 below low normal Not Available [facility] ([facility] [place]) [address] [place], [address], 08/10/2023 11:12:42 08/09/19 24 08/10/2023 COMP. METAB OLIC PANEL (14) bilirubin, total 1.0 mg/dL 0.0-1. 2 Not Available [facility] ([facility]) [address] [facility], [place], [address], 08/10/2023 11:12:42 08/09/19 24 08/10/2023 COMP. METAB OLIC PANEL (14) alkaline phosphatase 85 IU/L 44-121 Not Available [facility] ([facility]) [address] [facility], [place], [address], 08/10/2023 11:12:42 08/09/19 24 08/10/2023 COMP. METAB OLIC PANEL (14) AST (SGOT) 74 IU/L 0-40 above high normal Not Available [facility] ([facility]) [address] [facility], [place], [address], 08/10/2023 11:12:42 08/09/19 24 08/10/2023 COMP. METAB OLIC PANEL (14) ALT (SGPT) 75 IU/L 0-44 above high normal Not Available [facility] ([facility]) [address] [facility], [place], [address], 08/10/2023 11:12:42 08/09/19 24 08/10/2023 CBC, PLATE LET, NO DIFFE RENTI AL WBC 4.6 x10e3 /uL 3.4-10 .8 Naif ified by repea t christopher sis Not Available [facility] ([facility]) [address] [facility], [place], [address], 08/10/2023 11:12:44 08/09/19 24 08/10/2023 CBC, PLATE LET, NO DIFFE RENTI AL RBC 4.66 x10e6 /uL 4.14-5 .80 Not Available [facility] ([facility]) [address] [place], [address], 08/10/2023 11:12:44 08/09/19 24 08/10/2023 CBC, PLATE LET, NO DIFFE RENTI AL hemoglobin 15.0 g/dL 13.0-1 7.7 Not Available [facility] ([facility]) [address] [facility], [place], [address], 08/10/2023 11:12:44 08/09/19 24 08/10/2023 CBC, PLATE LET, NO DIFFE RENTI AL hematocrit 43.6 % 37.5-5 1.0 Not Available [facility] ([facility]) [address] [facility], [place], [address], 08/10/2023 11:12:44 08/09/19 24 08/10/2023 CBC, PLATE LET, NO DIFFE RENTI AL MCV 94 fL 79-97 Not Available [facility] ([facility]) [address] [facility], [place], [address], 08/10/2023 11:12:44 08/09/19 24 08/10/2023 CBC, PLATE LET, NO DIFFE RENTI AL MCH 32.2 pg 26.6-3 3.0 Not Available [facility] ([facility]) [address] [facility], [place], [address], 08/10/2023 11:12:44 08/09/19 24 08/10/2023 CBC, PLATE LET, NO DIFFE RENTI AL MCHC 34.4 g/dL 31.5-3 5.7 Not Available [facility] ([facility]) [address] [facility], [place], [address], 08/10/2023 11:12:44 08/09/19 24 08/10/2023 CBC, PLATE LET, NO DIFFE RENTI AL RDW 14.0 % 11.6-1 5.4 Not Available [facility] ([facility]) [address] [facility], [place], [address], 08/10/2023 11:12:44 08/09/19 24 08/10/2023 CBC, PLATE LET, NO DIFFE RENTI AL platelets 138 x10e3 /uL 150-45 0 below low normal Not Available [facility] ([facility]) [address] [facility], [place], [address], 08/10/2023 11:12:44 08/09/19 24 08/10/2023 CBC, PLATE LET, NO DIFFE RENTI AL NRBC ROOM SERVICE RUNNER Not Available [facility] ([facility]) [address], [place], [address], 08/10/2023 11:12:44 04/10/19 24 04/10/2023 US, liver [facility] [address] [place] [address] Phone: Fax: Name: HERO PATINO Exam Date: 024 : [birth year] Age 72 Gender : M Access ion: [id number] Physic rudy: BRONWYN BLANCO Facili ty: [facility] Facili ty HSV: Outpat ient Exam: [...] for referr leighann PATINO , HERO to [facility]. Legall y authen ticate d by POPE CHANTAL Napier 04-10 10:30: 03 CC'ed Logic: Orderi ng Provid er: BLANCO [place]WYN [place] Attend ing Provid er: BLANCO [place]WYN [place] Admitt ing Provid er: BLANCO [place]WYN [place] [email or web address] [facility] [address] [facility], [place], [address], 04/13/2023 17:41:14 04/25/19 24 04/25/2023 CT ABD w/w/O [facility] [address] [place] [address] Phone: Fax: Name: HERO PATINO Exam Date: : [birth year] Age 72 Gender : M Access ion: [id number] Physic rudy: BRONWYN BLANCO Facili ty: [facility] Facili ty HSV: Outpat ient Exam: [...] mass measur ing 4 cm in the dental technician ior right kidney . There is also a 1.[address] nonenh ancing mass in the dental technician ior left kidney . A 5 mm [...] Thank you for referr HERO Arzola to [facility]. Legall y authen ticate d by POPE CHANTAL Napier 04-25 11:35: 24 CC'ed Logic: Orderi ng Provid er: BLANCO BRONWYN [place] Attend ing Provid er: BLANCO [place] Admitt ing Provid er: BLANCO [place] [email or web address] [facility] [address] [place] [address], [place], [address], 04/27/2023 14:25:16 08/15/19 24 08/15/2023 CT BX of liver -need le [facility] [address] [place] [address] Phone: Fax: Name: HERO PATINO Exam Date: 08/15/19 24 : [birth year] Age 72 years Gender : M Access ion: [id number] Physic rudy: BRONWYN BLANCO [place] Facili ty: [facility] Facili ty HSV: Outpat ient Exam: [...] Thank you for referr HERO Arzola to [facility]. Legall y authen ticate d by POPE CHANTAL Napier 08-14 09:11: 59 CC'ed Logic: Orderi ng Provid er: BLANCO BRONWYN [place] Attend ing Provid er: BLANCO BRONWYN [place] Referr ing Provid er: BLANCO BR[place]YN [place] Admitt ing Provid er: BLANCO BRONWYN [place] [facility] [address] [facility], [place], [address], 08/22/2023 12:59:58 08/15/19 24 08/15/2023 CT BX of liver -need le [facility] [address] [facility] [address] [place] [address] Phone: Fax: Name: HERO PATINO Exam Date: 08/15/19 : [birth year] Age 72 years Gender : M Access ion: [id number] Physic rudy: BRONWYN BLANCO [place] Facili ty: [facility] Facili ty HSV: Outpat ient Exam: [...] you for referr ing HERO PATINO to [facility]. Legall y authen ticate d by POPE CHANTAL Napier 2023-0 08-14 09:17: 20 CC'ed Logic: Orderi ng Provid er: BLANCO BRONWYN [place] Attend ing Provid er: BLANCO [place]YN [place] Referr ing Provid er: BLANCO [place] Admitt ing Provid er: BLANCO [place]ONWYN [place] [email or web address] [facility] [address], [place], [address], 08/22/2023 12:59:58 Result Notes None recorded. Problems Name Problem SNOMED Code Status Onset Date Resolution Date Notes Provider Name and Address Organization Details Recorded Time Constipation 81135406 Active 2022 Barrera Rodney PA-C [address] [facility], [place], [address] , [facility] - [facility] & [place] 3 09:28:37 Problem Notes None recorded. Procedures Surgical History Date Name Laterality Status Provider Name and Address Organization Details Recorded Time 4 Procedure Note completed BRIAN BLANCO MSN, FLIGHT SIMULATOR TEACHER, SCALP TREATMENT SPECIALIST-C [address] [facility], [place], [address], [place] - [facility] - [place] & [place] 08/09/2023 09:21:29 4 Procedure Note completed BRIAN BLANCO MSN, FLIGHT SIMULATOR TEACHER, SCALP TREATMENT SPECIALIST-C [address] [facility], [place], [address], [place] - [facility] - [place] & [place] 05/14/2023 09:32:45 4 Procedure Note completed BRIAN BLANCO MSN, FLIGHT SIMULATOR TEACHER, SCALP TREATMENT SPECIALIST-C [address] [facility], [place], [address], [place] - [facility] - [place] & [place] 04/02/2023 11:35:51 hernia repair completed Emma Ramirez MS - [facility] - [place] & [place] 09/13/2022 08:53:22 Imaging Results Imaging Date Name Status LastModified by [facility] Details LastModified Time 04/10/2023 US, liver completed [email or web address] [facility] [address], [place], [address], 04/13/2023 17:41:14 04/25/2023 CT ABD w/w/O completed [email or web address] [facility] [address], [place], [address], 04/27/2023 14:25:16 08/15/2023 CT BX of liver-needl e completed [facility] [address], [place], [address], 08/22/2023 12:59:58 08/15/2023 CT BX of liver-needl e completed [email or web address] [facility] [address] , [place], [address], 08/22/2023 12:59:58 Procedure Notes None recorded. Medical [...] Address Organization Details Last Updated DateTime 03/15/2022 40979.48 g 137 mm[Hg] 84 mm[Hg] Jovanna Hood [facility] & [place] 03/15/2022 09:18:03 Date Recorded Body weight Body mass index (BMI) Body height Body temperature Oxygen saturation Oxygen saturation in Arterial blood by Pulse oximetry Systolic blood pressure Diastolic blood pressure Provider Name and Address Organization Details Last Updated DateTime 3 38842.6 5 g 25.3 kg/m2 175.26 cm 98.2 [degF] 97 % 97 % 134 mm[Hg] 81 mm[Hg] Emma Ramirez [facility] & [place] 3 08:57:20 Date Recorded Body height Body mass index (BMI) Body weight Body temperature Oxygen saturation Oxygen saturation in Arterial blood by Pulse oximetry Heart rate Heart rate Systolic blood pressure Diastolic blood pressure Provider Name and Address Organization Details Last Updated DateTime 4 175.26 cm 27.1 kg/m2 05820.9 2 g 97.5 [degF] 99 % 99 % 63 /min 59 /min 164 mm[Hg] 87 mm[Hg] Naz Sung [facility] & [place] 4 09:42:18 Date Recorded Body height Body mass index (BMI) Body weight Body temperature Oxygen saturation Oxygen saturation in Arterial blood by Pulse oximetry Heart rate Heart rate Systolic blood pressure Diastolic blood pressure Provider Name and Address Organization Details Last Updated DateTime 4 175.26 cm 26.7 kg/m2 21448.2 2 g 98.1 [degF] 98 % 98 % 64 /min 61 /min 127 mm[Hg] 71 mm[Hg] Emma Ramirez [facility] & [place] 4 09:31:10 Date Recorded Body height Body mass index (BMI) Body weight Body temperature Oxygen saturation Oxygen saturation in Arterial blood by Pulse oximetry Heart rate Heart rate Systolic blood pressure Diastolic blood pressure Provider Name and Address Organization Details Last Updated DateTime 4 175.26 cm 25.9 kg/m2 40816.1 8 g 97.7 [degF] 99 % 99 % 52 /min 55 /min 133 mm[Hg] 70 mm[Hg] Naz Sung [facility] & [place] 08:58:27 Social History Question Answer Notes LastModified by Rayn Details LastModified Time Tobacco Smoking Status Never Smoker Emma Ramirez [facility] & [place] 09/13/2022 08:53:57 What Is Your Level Of Caffeine Consumption? Moderate [email or web address] Information not available 09/13/2022 Sex: Unknown Functional Status Question Answer Note LastModified by Rayn Details LastModified Time Do you use any illicit or recreational drugs? No [email or web address] Information not available 09/13/2022 Do you or have you ever used any other forms of tobacco or nicotine? No [email or web address] Information not available 09/13/2022 What is your level of alcohol consumption? None [email or web address] Information not available 09/13/2022 Mental Status None [...] SNOMED-CT Code Diagnosis ICD10 Code Diagnosis Note 372305 Katelyn Gonzalez NP [facility] [place] 3379424-967 2 03/15/2022 08:56:58 03/15/2022 10:28:25 History of polyp of colon 360738254 Z86.010 - colonoscop y scheduled History of heartburn 080 0085451 9109 Z87.19 - famotidine once daily or as needed- stay upright 30-60 minutes after eating- avoid trigger foods 424370 Barrera Rodney PA-C [facility] [place] [address] 2 09/13/2022 08:37:06 09/13/2022 09:23:23 Constipation 38774929 K59.00 History of polyp of colon 755383524 Z86.010 History of heartburn 554 6813710 9109 Z87.19 628557 Hector Cabezas MD [facility] [place] [address] 2 04/02/2023 09:30:18 04/02/2023 11:06:32 Liver enzymes level above reference range 581645471 R74.01 Constipation 57564003 K5 9.00 History of polyp of colon 006449960 Z86.010 History of heartburn 210 0237547 9109 Z87.19 353246 Hector Cabezas MD [facility] [place] 3379424-967 2 05/14/2023 09:25:52 05/14/2023 10:26:30 Liver enzymes level above reference range 877545465 R74.01 Constipation 30319178 K5 9.00 History of polyp of colon 015689336 Z86.010 History of heartburn 265 1809414 9109 Z87.19 Anti-nucle ar factor detected 319590093 R76.8 [id number] Hector Cabezas MD [facility] [place] [address] 2 08/09/2023 08:35:27 08/09/2023 09:47:48 Liver enzymes level above reference range 921412741 R74.01 Constipation 89166919 K5 9.00 History of polyp of colon 331385218 Z86.010 History of heartburn 950 8576068 9109 Z87.19 Anti-nucle ar factor detected 929644028 R76.8 Health Concerns Section Related Observation LastModified by Organization Detai ls LastModified Time None Recorded Concern Status LastModified by Organization Details LastModified Time None Recorded Advance Directives Directive None Recorded Payers Insurance Date Sequence Insurance Name Policy Number Policy Vides Covered Member ID Vides Member ID Guarantor Name 06/09/2024 1 [employer] (MEDICARE REPLACEMENT/A DVANTAGE - PPO) Hero Patino [id number] Hero Patino Notes Date Note Type Note Provider Name and Address Organization Details Recorded Time 03/15/2022 text/html Patient is a 71-year-old male here today for follow-up after colonoscopy done 01/31/[address] Viera in [place]. referral was for repeat evaluation by Dr [...] Denies complaints or concerns otherwise Katelyn Gonzalez, ROOM SERVICE RUNNER [address] [facility], [place], [address], [facility] - [place] & [place] 03/15/2022 11:58:50 09/13/2022 text/html PREVIOUS (03/15/22 ): Patient is a 71-year-old male here today for follow-up after colonoscopy done 01/31/[address] Viera in [place]. referral was for repeat evaluation by Dr [...] year repeat was recommended. Barrera Rodney PA-C [address] , [place], [address], [place] - [facility] - [place] & [place] 09/13/2022 16:00:36 04/02/2023 text/html PREVIOUS (03/15/22 Tiffanie Gonzalez): Patient is a 71-year-old male here today for follow-up after colonoscopy done 01/31/[address] Viera in [place]. referral was for repeat evaluation by Dr [...] bowel movements per day. BRIAN BLANCO MSN, FLIGHT SIMULATOR TEACHER, SCALP TREATMENT SPECIALIST-C [address] [facility], [place], [address], [facility] - [place] - [place] & [place] 04/02/2023 11:56:15 05/14/2023 text/html PREVIOUS (03/15/22 Tiffanie Gonzalez): Patient is a 71-year-old male here today for follow-up after colonoscopy done 01/31/[address] Viera in [place]. referral was for repeat evaluation by Dr [...] hematemesis, hematochezia or melena. BRIAN BLANCO MSN, FLIGHT SIMULATOR TEACHER, SCALP TREATMENT SPECIALIST-C [address], [place], [address], [place] - [facility] - [place] & [place] 05/14/2023 12:57:53 08/09/2023 text/html PREVIOUS (03/15/22 Tiffanie Gonzalez): Patient is a 71-year-old male here today for follow-up after colonoscopy done 01/31/[address] Viera in [place]. referral was for repeat evaluation by Dr [...] the clinic today for follow-up. [facility] never called him to schedule his liver [...] hematemesis, hematochezia or melena. BRIAN BLANCO MSN, FLIGHT SIMULATOR TEACHER, SCALP TREATMENT SPECIALIST-C [address] [facility], [place], [address], [facility] - [place] & [place] 08/09/2023 10:07:11
--- OUTSIDE RECORDS SUMMARY | 2024-07-30 09:47 | XMS_ITS ---
Laboratory report Created on: July 29, 2024 HERO HOWARD : 1950 Sex: Male Author Organization Unknown PROBLEMS Problems List Code Description RESULTS Laboratory Orders Date Order Code Test 2024-07-25 [id number] IMMUNOGLOBULIN G , QN, SERUM Laboratory Results Date LOINC Test Value Unit Reference Range Interpre tation 2024-07-25 2465-3 IMMUNOGLOBULIN G , QN, SERUM 1212 MG/DL [id number]
--- NOTE | 2024-07-30 09:48 | US_ITS ---
FINAL REPORT TECHNIQUE: Ultrasound images of the kidneys were obtained. CLINICAL HISTORY: RENAL CYST COMPARISON: None FINDINGS: RENAL ULTRASOUND There is a complex septated cyst of the upper pole of the right kidney measuring 47 mm. No left renal lesion is identified. There is no hydronephrosis. Borderline splenomegaly is noted. IMPRESSION: No obstructive changes. Complex septated right renal cyst, favor benign. Recommend 6-month ultrasound follow-up or CT characterization. Reviewed, Interpreted and Dictated by Alber Guo MD Transcribed by Priscila Rodrigues Authenticated and [facility]
== END 2024-07-30 23:59 | disposition home or self-care (01) ==
LOC: RAD 09:44
PROVIDERS: PCP Family Medicine; Visit Provider Internal Medicine Gastroenterology
DX: N28.1 Cyst of kidney, acquired (principal)
CPT/HCPCS: 76770

== ENCOUNTER 2024-08-29 07:18 | Outpatient (CLI) | payer MEDICARE, SELFPAY ==
--- OUTSIDE RECORDS SUMMARY | 2007-02-05 06:39 | XMS_ITS | Continuity of Care Document ---
Author Name DOD-LA Organization [facility] Care Team Providers Care Digital Press Operator Name Role Phone [facility] Unavailable Unavailable Immunizations Combined list of available immunizations from the Department of Defense and Veterans Affairs facilities. Immunization Series Date Given Administered By Site Reaction Lot Number CVX Code Drug Commercial Account Officer Status Comments Source FLU,3 YRS (HISTORICAL) 2006 88 complet [facility] [place] [facility]
--- OUTSIDE RECORDS SUMMARY | 2024-07-14 06:34 | XMS_ITS | Encounter Summary ---
Author Organization [facility] Address [address] [place] [address] Care Team Providers Care Sales Team Recruiter Name Role Phone Luis Lawson MD Primary Care Provider [phone] Reason for Referral * Imaging (Routine) - Closed Specialty Diagnoses / Procedures Referred By Tyrel law Referred To Contact Radiology Diagnoses Other cirrhosis of liver (CMS/HCC) Procedures US Liver Screen Jenny Alberto MD [address] [address] Phone: tel: fax: Referral ID Status Reason Start Date Expiration Date Visits Re quested Visits Authorized [id number] Closed 04/21/2024 10/21/2025 1 1 Reason for Visit * Imaging (Routine) - Closed Specialty Diagnoses / Procedures Referred By Contjacqui t Referred To Contact Radiology Diagnoses Other cirrhosis of liver (CMS/HCC) Procedures US Liver Screen Jenny Alberto MD [address] [address] Phone: tel: fax: Referral ID Status Reason Start Date Expiration Date Visits Re quested Visits Authorized [id number] Closed 04/21/2024 10/21/2025 1 1 Encounter Details Date Type Department Care Team (Latest Contact Info) Description 07/14/2024 6:34 AM EDT - 07/14/2024 11:59 PM EDT Hospital Encounter [facility] [address] [place] [address] Other cirrhosis of liver (CMS/HCC) Discharge Disposition: Home or Self Care Social History Tobacco Use Types Packs/Day Years Used Date Smoking Tobacco: Never Passive Smoke Exposure: Never Smokeless Tobacco: Never Alcohol Use Standard Drinks/Week Comments Never 0 (1 standard drink = 0.6 oz pur e alcohol) PHQ-2 Answer Date Recorded Patient Health Questionnaire-2 Score 0 05/30/2024 PHQ-9 Answer Date Recorded Patient Health Questionnaire-9 Score 0 05/30/2024 Sex and Gender Information Value Date Recorded Sex Assigned at Not on file Legal Sex Male 7:48 PM EDT Gender Identity Not on file Sexual Orientation Not on file documented as of this encounter Medications at Time of Discharge amLODIPine (Norvasc) 5 MG tablet Take 1 tablet (5 mg) by mouth 1 (one) time each day. 12/18/2023 ASPIRIN 81 MG chewable tablet Chew 1 tablet (81 mg) 1 (one) time each day. atorvastatin (Lipitor) 10 MG tablet Take 1 tablet (10 mg) by mouth 1 (one) time each day. 01/30/2024 azaTHIOprine (Imuran) 50 MG tabletIndications :Autoimmune hepatitis (CMS/HCC) Take 1 tab in am and 1/2 (Half) in pm 135 tablet 1 05/30/2024 carvedilol (Coreg) 12.5 MG tablet 03/26/2024 levothyroxine (Synthroid, Levoxyl) 50 MCG tablet 07/07/2024 Multiple Vitamin (multivitamin) tablet Take 1 tablet by mouth 1 (one) time each day. nutritional drink (Boost Plus) liquid liquid Drink 1 supplement up to 3 times a day or As Directed as a nutritional supplement. Flavor preference: per patient. 1 case today. Can dispense up to 4 cases at a time per patient request in the future 237 mL 11 05/23/2024 ondansetron (Zofran) 4 MG tabletIndications :Nausea and vomiting, unspecified vomiting type,Autoimmune hepatitis (CMS/HCC) Take 1 tablet (4 mg) by mouth every 8 hours as needed for nausea or vomiting. 20 tablet 3 05/23/2024 predniSONE (Deltasone) 20 MG tablet 1 tablet (20 mg) 1 (one) time each day. 04/07/2024 ranolazine (Ranexa) 500 MG 12 hr tablet Take 1 tablet (500 mg) by mouth 2 (two) times a day. Do not crush, chew, or split. tamsulosin (Flomax) 0.4 MG 24 hr capsule Take 1 capsule (0.4 mg) by mouth 1 (one) time. 12/31/2023 documented as of this encounter Plan of Treatment Upcoming Encounters Date Type Department Care Team (Late st Contact Info) Description 01/05/2025 8:00 AM EDT Office Visit [facility] Medicine [facility]ties [address] [place] [address] Jenny Alberto MD [address] [facility] [address] [place] [address] 01/15/2025 10:10 AM EST Office Visit [facility] Medicine [facility] [address] [place] [address] Myles Dyer MD [address] [place] [address] documented as of this encounter Procedures Procedure Name Priority Date/Time Associated Diagnosis Comments US LIVER SCREEN Routine 07/14/2024 6:54 AM EDT Other cirrhosis of liver (CMS/HCC) documented in this encounter Results * US Liver Screen (07/14/2024 6:54 AM EDT) Anatomical Region Laterality Modality Abdomen, Liver Ultrasound Impressions 07/17/2024 10:52 AM EDT Cirrhotic liver morphology. No focal lesions identified. Mild splenomegaly. No ascites. Incidentally visualized minimally complex renal cysts. Recommend dedicated renal ultrasound for further evaluation. Category Score US-1 Negative. No US evidence of HCC. No observation or Only definitely benign observation(s). Continue with regular screening. Visualization Score Vis B. Moderate limitations. Limitations may obscure small masses. The above scoring system and recommendations are based on Ultrasound LI-RADS version 2017. [email or web address]/-/[email or web address] CRITICAL RESULT: No. COMMUNICATION: Per this written report. By electronically signing this report, I, the attending physician, attest that I have personally reviewed the images/data for the above examination(s) and agree with the final edited report. Drafted by João Salinas DO on 07/17/2024 8:24 AM Final report signed by America Rodney DO on 07/17/2024 10:52 AM Narrative 07/17/2024 10:52 AM EDT CLINICAL INDICATION: HCC screening TECHNIQUE: Multiplanar static and cine clifford scale ultrasound images of the abdomen were obtained, accompanied by selective color Doppler ultrasound images. COMPARISON: None. FINDINGS: Grayscale: Liver: The liver is coarse and heterogenous consistent with parenchymal disease. This limits the visualization of focal lesions though no focal lesions are detected. Portal Vein: There is antegrade flow within the main portal vein. Gallbladder: Unremarkable gallbladder without evidence of wall thickening, pericholecystic fluid or gallstones. Common Duct: 4 mm Spleen: Mildly enlarged measuring 14.9 cm. Free Fluid: There is no ascites Other: Small cysts involving the kidneys bilaterally. A 3.8 cm cyst arising from the superior pole right kidney demonstrates an incomplete septation. This incomplete septation demonstrates a echogenic nodular focus measuring 0.4 cm (cine series A17). Procedure Note America Rodney, - 07/17/2024 CLINICAL INDICATION: HCC screening TECHNIQUE: Multiplanar static and cine clifford scale ultrasound images of the abdomenwere obtained, accompanied by selective color Doppler ultrasound images. COMPARISON: None. FINDINGS: Grayscale: Liver: The liver is coarse and heterogenous consistent with parenchymaldisease. This limits the visualization of focal lesions though no focallesions are detected. Portal Vein: There is antegrade flow within the main portal vein. Gallbladder: Unremarkable gallbladder without evidence of wall thickening,pericholecystic fluid or gallstones. Common Duct: 4 mm Spleen: Mildly enlarged measuring 14.9 cm. Free Fluid: There is no ascites Other: Small cysts involving the kidneys bilaterally. A 3.8 cm cystarising from the superior pole right kidney demonstrates an incompleteseptation. This incomplete septation demonstrates a echogenic nodularfocus measuring 0.4 cm (cine series A17). IMPRESSION: Cirrhotic liver morphology. No focal lesions identified. Mild splenomegaly. No ascites. Incidentally visualized minimally complex renal cysts. Recommend dedicatedrenal ultrasound for further evaluation. Category Score US-1 Negative. No US evidence of HCC. No observation orOnly definitely benign observation(s). Continue with regular screening. Visualization Score Vis B. Moderate limitations. Limitations may obscuresmall masses. The above scoring system and recommendations are based on UltrasoundLI-RADS version 2017. [email or web address].org/-/[email or web address] [email or web address] CRITICAL RESULT: No. COMMUNICATION: Per this written report. By electronically signing this report, I, the attending physician, tayo I have personally reviewed the images/data for the aboveexamination(s) and agree with the final edited report. Drafted by João Salinas DO on 07/17/2024 8:24 AM Final report signed by America Rodney DO on 07/17/2024 10:52 AM us Jenny Alberto MD IMG US PROCEDURES Final Re sult documented in this encounter Visit Diagnoses Diagnosis Other cirrhosis of liver (CMS/HCC) documented in this encounter Additional Health Concerns Assessment Noted Time PHQ-9 Depression Total Score: 0 05/31/19 25 8:43 AM EDT A fall risk assessment has been complete d for the patient 07/14/2024 8:37 AM EDT A Body Mass Index follow-up plan has been documented for the patient 07/14/2024 3:06 PM EDT documented as of this encounter Care Teams Sales Team Recruiter Relationship Specialty Start Date End Date Luis Lawson MD [address] [place] [address] [address] [address] PCP - General 02/25/24 documented as of this encounter
--- OUTSIDE RECORDS SUMMARY | 2024-07-14 09:00 | XMS_ITS | Encounter Summary ---
Author Organization [facility] Address [address] [id number] Care Team Providers Care Zoning Engineer Name Role Phone Luis Lawson MD Primary Care Provider [phone] Reason for Referral * Genetic Testing (Routine) - Authorized Specialty Diagnoses / Procedures Referred By Contac t Referred To Contact Lab Diagnoses Autoimmune hepatitis (CMS/HCC) Procedures IgG, Plasma Jenny Alberto MD [address] [address] Phone: tel: fax: Referral ID Status Reason Start Date Expiration Date V isits Requested Visits Authorized [id number] Authorized 07/14/2024 01/13/2026 1 1 * Consultation (Routine) - Authorized Specialty Diagnoses / Procedures Referred By Contac t Referred To Contact Diagnoses Autoimmune hepatitis (CMS/HCC) Nausea Jenny Alberto MD [address] [address] Phone: tel: fax: Referral ID Status Reason Start Date Expiration Date V isits Requested Visits Authorized [id number] Authorized 07/14/2024 01/13/2026 1 1 * Genetic Testing (Routine) - Closed Specialty Diagnoses / Procedures Referred By Contac t Referred To Contact Lab Diagnoses Autoimmune hepatitis (CMS/HCC) Procedures IgG, Plasma Jenny Alberto MD [address] [facility] [address] [place] [address] Phone: tel: fax: Referral ID Status Reason Start Date Expiration Date Visits Re quested Visits Authorized [id number] Closed 07/14/2024 01/13/2026 1 1 Reason for Visit * Reason Comments Nausea and vomiting, unspecified vomitin g type Autoimmune hepatitis (CMS/HCC) Encounter Details Date Type Department Care Team (Late st Contact Info) Description 07/14/2024 9:00 AM EDT Office Visit [facility] [address] [place] [address] Jenny Alberto MD [address] [facility] [address] [place] [address] Autoimmune hepatitis (CMS/HCC) (Primary Dx); Nausea; Other specified hypothyroidism; Encounter for snf current use of azathioprine; On prednisone therapy [...] documented in this encounter Miscellaneous Notes * Progress Notes - Jenny Alberto MD - 07/14/2024 9:00 AM EDT Subjective Patient ID: Magen Pation is a 73 y.o. male. Chief Complaint [...] diverticulitis, in May- went to ER In [facility] 06/05/24 No abd pain,hematochezia Reports improvement of nausea, but still has nausea, thus he stopped azathioprine on his own. He has been off azathioprine for 2 weeks EGD- I reviewed report of EGD done by Dr. Cabezas 06/02/24 at [place]: Normal esophagus PHG- gastric biopsies: reactive gastropathy [...] has appointment this week with (surgeon in [place]) who will be coordinating with Dr. Cabezas [...] Description 01/05/2025 8:00 AM EDT Office Visit [facility] [address] [place] [address] Jenny Alberto MD [address] [place] [address] 01/15/2025 10:10 AM EST Office Visit [facility] [address] [place] [address] Myles Dyer MD [address] [place], [place] [id number] Scheduled Orders Name Type Priority Associated Diagnoses Orde r Schedule CBC and Differential Lab Routine Autoimmune hepatitis (CMS/HCC) as needed for 24 Occurrences starting 07/14/2024 until 01/14/2026 Comprehensive Metabolic Panel, Plasma Lab Routine Autoimmune hepatitis (CMS/HCC) as needed for 24 Occurrences starting 07/14/2024 until 01/14/2026 IgG, Plasma Lab Routine Autoimmune hepatitis (CMS/HCC) as needed for 24 Occurrences starting 07/14/2024 until 01/14/2026 Scheduled Referrals Name Type Priority Associated Diagnoses Orde r Schedule Follow Up GI Outpatient Referral Routine Autoimmune hepatitis (CMS/HCC) Nausea Expected: 09/13/2024, Expires: 08/14/2025 documented as of this encounter Results * TSH Reflex FT4 (07/14/2024 10:01 AM EDT) Thyroid Stimulating Hormone, Plasma 2.24 0.40 - 4.20 uIU/mL 07/14/2024 11:20 AM EDT [facility] Blood Venous blood specimen / Unknown Venipuncture / Unknown 07/14/2024 10:01 AM EDT 07/14/2024 10:01 AM EDT us Jenny Alberto MD LAB BLOOD ORDERABLES Final Result Performing Organization Address City/[facility]/ZIP Co de Phone Number [facility] [address] [place] [address] * IgG, Plasma (07/14/2024 10:01 AM EDT) Pathologist [facility] IGG 1,222 720 - 1,589 mg/dL 07/14/2024 11:20 AM EDT [facility] Blood Venous blood specimen / Unknown Venipuncture / Unknown 07/14/2024 10:01 AM EDT 07/14/2024 10:01 AM EDT us Jenny Alberto MD LAB BLOOD ORDERABLES Final Result [facility] [address] [place] [address] * (ABNORMAL) Comprehensive metabolic panel (07/14/2024 10:01 AM EDT) Pathologist [facility] Glucose, Plasma 102(H) 74 - 99 mg/dL 07/14/2024 11:20 AM EDT [facility] BUN, Plasma 16 8 - 23 mg/dL 07/14/2024 11:20 AM EDT [facility] Creatinine, Plasma 0.81 0.70 - 1.20 mg/dL 07/14/2024 11:20 AM EDT [facility] BUN/Creatinine Ratio 07/14/2024 11:20 AM EDT [facility] Sodium, Plasma 142 136 - 145 mmol/L 07/14/2024 11:20 AM EDT [facility] Potassium, Plasma 4.0 3.6 - 4.9 mmol/L 07/14/2024 11:20 AM EDT [facility] Chloride, Plasma 106 97 - 107 mmol/L 07/14/2024 11:20 AM EDT [facility] CO2, Plasma 25 22 - 29 mmol/L 07/14/2024 11:20 AM EDT [facility] Anion Gap 11 6 - 16 mmol/L 07/14/2024 11:20 AM EDT [facility] Total Calcium, Plasma 9.6 8.9 - 10.2 mg/dL 07/14/2024 11:20 AM EDT [facility] Total Protein 7.1 6.3 - 7.9 g/dL 07/14/2024 11:20 AM EDT [facility] Albumin, Plasma 4.1 3.5 - 5.2 g/dL 07/14/2024 11:20 AM EDT [facility] AST, Plasma 30 10 - 50 U/L 07/14/2024 11:20 AM EDT [facility] ALT, Plasma 36 10 - 50 U/L 07/14/2024 11:20 AM EDT [facility] Alkaline Phosphatase, Plasma 79 40 - 115 U/L 07/14/2024 11:20 AM EDT [facility] Total Bilirubin, Plasma 0.6 0.2 - 1.1 mg/dL 07/14/2024 11:20 AM EDT [facility] eGFRcr 91.9 mL/min/1.7 3m*2 07/14/2024 11:20 AM EDT [facility] Comment:Reported eGFRcr in m L/min/1.73m2 is based the CKD-EPI 2020 equation that does not use a race coefficient. Blood Venous blood specimen / Unknown Venipuncture / Unknown 07/14/2024 10:01 AM EDT 07/14/2024 10:01 AM EDT us Jenny Alberto MD LAB BLOOD ORDERABLES Final Result [facility] [address] [place] [address] documented in this encounter Visit Diagnoses Diagnosis Autoimmune hepatitis (CMS/HCC)- Primary Autoimmune hepatitis Nausea Nausea alone Other specified hypothyroidism Encounter for snf current use of azathioprine [...] documented as of this encounter Care Teams Zoning Engineer Relationship Specialty Start Date End Date Luis Lawson MD [address] [place] [address] PCP - General 02/25/24 documented as of this encounter
--- OUTSIDE RECORDS SUMMARY | 2024-08-29 07:22 | XMS_ITS | Encounter Summary ---
Author Organization [facility] Address [address] [place] [address] Care Team Providers Care Physician Non Invasive Cardiologist Name Role Phone Luis Lawson MD Primary Care Provider [phone] Encounter Details Date Type Department Care Team (Late st Contact Info) Description 07/30/2024 Orders Only [facility] Medicine Specialties [address] [facility] [place] [address] Jenny Alberto MD [address] [place] [phone] Social History Tobacco Use Types Packs/Day Years [...] on file documented as of this encounter Plan of Treatment Upcoming Encounters Date Type Department Care Team (Late st Contact Info) Description 01/05/2025 8:00 AM EDT Office Visit [facility] Medicine [facility]ties [address] [facility] [place] [address] Jenny Alberto MD [address] [place] [address] [place] [address] 01/15/2025 10:10 AM EST Office Visit [facility] [address], [address] [place] [address] Myles Dyer MD [address] [place] [address] documented as of this encounter Procedures Procedure Name Priority Date/Time Associated Diagnosis Comments IGG, PLASMA Routine 07/25/2024 2:43 PM EDT documented in this encounter Results * IgG, Plasma (07/25/2024 2:43 PM EDT) Blood Venous blood specimen / Unknown us Jenny Alberto MD LAB BLOOD ORDERABLES Final Result documented in this encounter Visit Diagnoses Not on filedocumented in this encounter Additional Health Concerns Assessment Noted Time PHQ-9 Depression Total Score: 0 05/31/19 25 8:43 AM EDT A fall risk assessment has been complete d for the patient 07/14/2024 8:37 AM EDT A Body Mass Index follow-up plan has been documented for the patient 07/14/2024 3:06 PM EDT documented as of this encounter Care Teams Physician Non Invasive Cardiologist Relationship Specialty Start Date End Date Luis Lawson MD [address] [place] [id number] PCP - General 02/25/24 documented as of this encounter
--- OUTSIDE RECORDS SUMMARY | 2024-08-29 07:22 | XMS_ITS | Encounter Summary ---
Author Organization [facility] Address [address] [place] [address] Care Team Providers Care Direct Chill Caster Name Role Phone Field, [employer] Primary Care Provider [phone] Luis Lawson MD Primary Care Provider [phone] Encounter Details Date Type Department Care Team (Late st Contact Info) Description 01/23/2024 Lab Requisition [facility] [address] [place] [address] Jenny Alberto MD [address] [facility] [address] [place] [address] Elevation of levels of liver transaminase levels Social History Tobacco Use Types Packs/Day Years Used Date Smoking Tobacco: Never Passive Smoke Exposure: Never Smokeless Tobacco: Never Alcohol Use Standard Drinks/Week Comments Never 0 (1 standard drink = 0.6 oz pur e alcohol) PHQ-2 Answer Date Recorded Patient Health Questionnaire-2 Score 0 01/21/2024 PHQ-9 Answer Date Recorded Patient Health Questionnaire-9 Score 0 01/21/2024 Sex and Gender Information Value Date Recorded Sex Assigned at Not on file Legal Sex Male 7:48 PM EDT Gender Identity Not on file Sexual Orientation Not on file documented as of this encounter Miscellaneous Notes * Result Encounter Note - Jenny Alberto MD - 01/23/2024 1:40 PM EST Discussed biopsy results with Dr. Valdes who called pt about liver biopsy review showing autoimmunehepatitis and he started steroids prednisone 40mg/d and requested labs including TPMT, in anticipation of possible azathioprine therapy. Will get patient sooner for follow-up-- pls overbook for February 24 with me, anytime between 8-10am please. Also noted dsDNA+, >1:2560, will refer to rheumatology documented in this encounter Plan of Treatment Upcoming Encounters Date Type Department Care Team (Late st Contact Info) Description 01/05/2025 8:00 AM EDT Office Visit [facility] Medicine Specialties [address] [place] [address] Jenny Alberto MD [address] [facility] [address] [place] [address] 01/15/2025 10:10 AM EST Office Visit [facility] [address] [place] [address] Myles Dyer MD [address] [place] [address] documented as of this encounter Procedures Procedure Name Priority Date/Time Associated Diagnosis Comments SURGICAL PATHOLOGY CONSULT Routine 01/23/2024 1:42 PM EST Elevation of levels of liver transaminase levels documented in this encounter Results * Surgical Pathology Consult (01/23/2024 1:42 PM EST) Case Report Sugical Pathology Consult Case: [id number] Authorizing Provider: Jenny Alberto MD Collected: 01/23/2024 1342 Ordering Location: [facility] Lab Received: 01/23/2024 1342 Pathologist: Nasra Nava MD Specimen: Liver, [id number] 01/24/2024 4:41 PM EST [facility] Final Diagnosis LIVER, NEEDLE CORE BIOPSY ([id number]; 08/15/2023): - CLINICOPATHOLOGIC FINDINGS CONSISTENT WITH AUTOIMMUNE HEPATITIS WITH STAGE 4 FIBROSIS (SEE COMMENT). 01/24/2024 4:41 PM EST [facility] at 1641 EST Comment Sections show areas of bridging fibrosis and nodule formation. The portal areas and fibrous septae show mixed inflammatory infiltration (mostly lymphocytic with occasional plasma cells) and mild interface changes. One portal area contains a ymphoid follicle. There is no evidence of ductopenia or periductal fibrosis. No granulomas are seen. The lobule is negative for fatty change, ballooning degeneration or inflammation. No Di hyalines or acidophilic bodies are identified. The submitted special stain for iron is negative. The submitted trichrome stain shows extensive bridging fibrosis (stage 4 fibrosis). Clinical history of elevated transaminases, positive GONZALO, positive SMA, and significantly elevated IgG level is noted. Since the biopsy shows interface hepatitis with plasma cells, the overall clinicopathologic findings are consistent with autoimmune hepatitis with stage 4 fibrosis. Further clinical correlation is recommended. 01/24/2024 4:[address] [facility] Clinical Information R74.01 - Elevation of levels of liver transaminase levels [ICD-10-CM] 01/24/2024 4:41 PM EST [facility] Gross Description A. [id number] Received along with a corresponding pathology report from [facility] are 3 slides labeled outside case: [id number] collected on 08/15/2023. 01/24/2024 4:41 PM EST [facility] Note: A resident was involved in the service. I attest I examined the relevant preparations for the specimens and confirmed the diagnosis or interpretation. 01/24/2024 4:41 PM EST [facility] Tissue Liver structure / Unknown 01/23/2024 1:42 PM EST 01/23/2024 1:42 PM EST us Jenny Alberto MD LAB PATHOLOGY ORDERABLES F inal Result [facility] [address] [place] [address] documented in this encounter Visit Diagnoses Diagnosis Elevation of levels of liver transaminase levels documented in this encounter Additional Health Concerns Assessment Noted Time PHQ-9 Depression Total Score: 0 01/21/20 24 10:20 AM EST A fall risk assessment has been complete d for the patient 01/21/2024 10:21 AM EST A Body Mass Index follow-up plan has been documented for the patient 01/21/2024 9:47 PM EST documented as of this encounter Care Teams Direct Chill Caster Relationship Specialty Start Date End Date Vita Reid APRN [address] [place] [id number] PCP - General 07/23/20 02/24/24 Luis Lawson MD [address] [place] [address] [address] [place] [id number] PCP - General 02/25/24 documented as of this encounter
--- OUTSIDE RECORDS SUMMARY | 2024-08-29 07:22 | XMS_ITS | Encounter Summary ---
Author Organization [facility] Address [address] [place] [address] Care Team Providers Care Detective Bureau Chief Name Role Phone Luis Lawson MD Primary Care Provider [phone] Encounter Details Date Type Department Care Team (Late st Contact Info) Description 07/14/2024 [facility] [address] [place] [address] Lori Levi, RN [facility] Social History Tobacco Use Types Packs/Day Years [...] as of this encounter Miscellaneous Notes * Telephone Encounter - Lori Levi RN - 07/15/2024 8:08 AM EDT Uploaded to MM and provider * Telephone Encounter - Lori Levi RN - 07/14/2024 2:55 PM EDT Results request faxed to [phone] ----- Message from Jenny Alberto MD sent at 07/14/2024 2:49 PM EDT ----- Regarding: ER records from [facility] Can you please retrieve ER visit records from [facility] from may 2024?Including CT report and ER note? documented in this encounter Plan of Treatment Upcoming Encounters Date Type Department Care Team (Late st Contact Info) Description 01/05/2025 8:00 AM EDT Office Visit [facility] Medicine Specialties [address] [place] [address] Jenny Alberto MD [address] [place] [address] 01/15/2025 10:10 AM EST Office Visit [facility] Medicine Specialties [address] [place] [address] Myles Dyer MD [address] [place] [address] documented as of this encounter Visit Diagnoses Not on filedocumented [...] documented as of this encounter Care Teams Detective Bureau Chief Relationship Specialty Start Date End Date Luis Lawson MD [address] [place] [address] [place] [id number] PCP - General 02/25/24 documented as of this encounter
--- OUTSIDE RECORDS SUMMARY | 2024-08-29 07:22 | XMS_ITS | Data Portability ---
Author Organization [place] - [facility] - [place] [facility] ADMIN Address [address] [place] [id number] Care Team Providers Care Surveillance Analyst Name Role Phone JESSICA VIERA Referring Provider [phone] JESSICA VIERA Primary Care Provider Assessment Encounter Date Assessment Date Assessment LastModified by Organization Details LastModified Time 09/13/2022 09/13/2022 71-year-old male with: 1) History of colon polyps: No polyps on colonoscopy 06/2022. 3 year repeat was recommended. He plans to have this done with Dr. Viera at [facility]. 2) Constipation: Well managed on Miralax once daily. 3) Heartburn: Resolved. He has stopped acid reducing medications. f/u PRN [email or web address] Not available 09/13/2022 16:00:19 04/02/2023 04/02/2023 71-year-old male with: 1) Elevated liver enzymes -Will obtain lab workup per below to rule out hepatitis, autoimmune, or hereditary/metabo lic causes. -Will order liver ultrasound -Unable to perform NOLASCO Fibrosure test today as patient is not fasting. Patient was given printed lab order and instructed to get this lab drawn at [facility] when he is fasting and goes [...] have this done with Dr. Viera at [facility]. 3) Constipation: Well managed on Miralax once daily. 4) Heartburn: Resolved. He has stopped acid reducing medications. f/u 6 weeks [email or web address] Not available 04/02/2023 11:55:33 05/14/2023 05/14/2023 72-year-old [...] -Will order CT guided liver biopsy at [facility] for further evaluation -Diet and exercise [...] have this done with Dr. Viera at [facility]. 4) Constipation: Well managed on Miralax once daily. 5) Heartburn: Resolved. He has stopped acid reducing medications. F/u after liver biopsy [email or web address] Not available 05/14/2023 12:55:05 08/09/2023 08/09/2023 72-year-old [...] -Will order CT guided liver biopsy at [facility]. Order was sent to [facility] Interventional Radiology x2, the patient was never called to schedule the procedure. Ordered liver biopsy to be performed at [facility] yesterday. -Diet and exercise counseled -Continue to [...] have this done with Dr. Viera at [facility]. 4) Constipation: Well managed on Miralax once daily. 5) Heartburn: Resolved. He has stopped acid reducing medications. F/u after liver biopsy [email or web address] Not available 08/09/2023 10:06:50 Plan of Treatment Reminders Order Date Submit Date Provider Last Modified By Organization Details Last Modified Time Details Appointments None recorded. Lab CBC 2023 024 [facility], [address], [address], [place], [address], 4 11:12:44 CMP, serum or plasma 2023 024 [facility], [address], [address], [place], [address], 4 11:12:42 hepatic function panel, serum 2023 024 [facility], [address], [address], [place], [address], 4 11:14:13 hepatitis panel (A+B+C), acute, serum 2023 024 [facility], [address], [address], [place], [address], 4 11:14:15 hepatitis B surface Ab, quantitat pepe, serum 2023 024 [facility], [address], [address], [place], [address], 4 11:14:20 hepatitis A virus Ab, qualitati ve, immunoass ay, serum 2023 024 [facility], [address], [address], [place], [address], 4 11:14:27 actin smooth muscle IgG Ab, quant, serum 2023 024 [facility], [address], [address], [place], [address], 4 11:14:21 mitochond rial M2 igg Ab, serum 2023 024 [facility], [address], [address], [place], [address], 4 11:14:22 igg, quantitat pepe, serum 2023 024 [facility], [address], [address], [place], [address], 4 11:14:25 GONZALO (antinucl ear antibodie s) screen, serum 2023 024 [facility], [address], [address], [place], [address], 4 11:14:23 HFE gene mutation analysis, blood or tissue 2023 024 [facility], [address], [address], [place], [address], 4 11:14:18 iron + TIBC + ferritin, serum 2023 024 [facility], [address], [address], [place], [address], 4 11:14:09 alpha-1-a ntitrypsi n (aat), QN, serum 2023 024 [email or web address] [facility], [address], [address], [place], [address], 4 10:37:40 alpha-1-a ntitrypsi n (aat), QN, serum 2023 024 [facility], [address], [address], [place], [address], 4 11:14:14 CBC 2023 024 [facility], [address], [address], [place], [address], 4 11:14:12 PT/INR 2023 024 [facility], [address], [address], [place], [address], 4 11:14:16 nonalcoho lic steatohep atitis + fibrosis panel, serum or plasma 2023 024 [facility], [address], [address], [place], [address], 4 11:14:10 afp (alpha-fe toprotein ) tumor marker, serum or plasma 2023 024 [facility], [address], [address], [place], [address], 4 11:14:19 Referral None recorded. Procedures biopsy, [...] Family history of liver disease. [address] Interventional Radiology, [address], [place], [address], 4 13:49:01 Surgeries None recorded. Imaging US, liver 2023 024 [facility] (Centralized Scheduling), [address] [facility], [place], [address], 4 10:48:53 Medication Orders polyethyl jeffrey glycol 3350 17 gram/dose oral powder 2022 024 [facility], [address] [place] [address], [facility] [address], [place], [address], 4 10:33:01 famotidin e 20 mg tablet 2022 023 [email or web address] [facility], [address] [place] [address], [facility] [address], [place], [address], 4 10:15:02 Patient TargetsNo targets recorded. Patient InstructionsNo instructions recorded. Reason for Referral None Reported. Results Created Date Observation Date Name Description Value Unit Range Abnormal Flag Note LastModifiedBy Organization Detail LastModifiedTime 04/02/19 24 04/03/2023 FE+TI BC+FE R iron bind.cap.(TI BC) 396 ug/dL 250-45 0 Not Available [facility] ([facility]) [address] [place], [address], 04/19/2023 11:14:04/02/19 24 04/03/2023 FE+TI BC+FE R UIBC 168 ug/dL 111-34 3 Not Available [facility] ([facility]) [address] [place], [address], 04/19/2023 11:14:09 04/02/19 24 04/03/2023 FE+TI BC+FE R iron 228 ug/dL 38-169 above high normal Not Available [facility] ([facility]) [address] [place], [address], 04/19/2023 11:14:09 04/02/19 24 04/03/2023 FE+TI BC+FE R iron saturation 58 % 15-55 above high normal Not Available [facility] ([facility]) [address] [place], [address], 04/19/2023 11:14:09 04/02/19 24 04/03/2023 FE+TI BC+FE R ferritin 66 NG/mL 30-400 Not Available [facility] ([facility]) [address] [place], [address], 04/19/2023 11:14:04/02/19 24 04/02/2023 NOLASCO FIBRO SURE( R) PLUS methodology: COMMEN T The christopher margaret teste d are perfo rmed by Fibro Sure- Speci fic metho ds. Not inten ded for use with other diagn ostic consi derat ions. Not Available [facility] ([facility]) [address] [place], [address], 04/19/2023 11:14:10 04/02/19 24 04/02/2023 NOLASCO FIBRO SURE( R) PLUS interpretati ons: COMMEN T Quant itati ve resul ts of 10 bioch emica ls in combi natio n with age and gende r, are christopher zed using a compu tatio nal algor ithm to provi de a quant itati ve surro gate marke r (0.0- 1.0) of liver fibro sis (Eudora vir F0-F4 ), hepat ic steat osis [...] had signi fican t NAFLD fibro sis (Eudora vir F2-F4 ) and 11% had cirrh [...] y of 71%.[ 3] Not Available [facility] ([facility]) [address] [facility], [place], [address], 04/19/2023 11:14:10 04/02/19 24 04/02/2023 NOLASCO FIBRO [...] F4 - Cirrh osis Not Available [facility] ([facility]) [address] [place], [address], 04/19/2023 11:14:10 04/02/19 24 04/02/2023 NOLASCO FIBRO SURE( R) PLUS steatosis scoring COMMEN T <=0.4 0 = S0 - No Steat osis (<5%) 0.40 - 0.55 = S1 - Mild Steat osis (but Clini koki Signi fican t) (5-33 %) >0.55 = S2S3- Moder ate to Sever e Steat osis (Clin icall y Signi fican t) (34-1 00%) Not Available [facility] ([facility]) [address] [place], [address], 04/19/2023 11:14:10 04/02/19 24 04/02/2023 NOLASCO FIBRO SURE( R) PLUS nolasco scoring COMMEN T <=0.2 5 = N0 - No NOLASCO 0.25 - 0.50 = N1 - Mild NOLASCO 0.50 - 0.75 = N2 - Moder ate NOLASCO >0.75 = N3 - Sever e NOLASCO Not Available [facility] ([facility]) [address] [place], [address], 04/19/2023 11:14:10 04/02/19 24 04/02/2023 NOLASCO FIBRO SURE( R) PLUS limitations: COMMEN T NOLASCO Fibro Sure( R) Plus is recom abedlrahman d for patie nts with suspe cted [...] s of fibro sis. Not Available [facility] ([facility]) [address], [place], [address], 04/19/2023 11:14:10 04/02/19 24 04/02/2023 NOLASCO FIBRO [...] conta ct custo reid servi ce at [phone]. Refer ences : 1. Marciano Galloway et [...] July; 30:56 9-577 . Not Available [facility] ([facility]) [address] [facility], [place], [address], 04/19/2023 11:14:10 04/02/19 24 04/03/2023 NOLASCO FIBRO SURE( R) PLUS fibrosis score 0.89 0.00-0 .21 above high normal Not Available [facility] ([facility]) [address] [facility], [place], [address], 04/19/2023 11:14:10 04/02/19 24 04/03/2023 NOLASCO FIBRO SURE( R) PLUS fibrosis stage COMMEN T F4 - Cirrh osis Not Available [facility] ([facility]) [address] [facility], [place], [address], 04/19/2023 11:14:10 04/02/19 24 04/03/2023 NOLASCO FIBRO SURE( R) PLUS steatosis score 0.50 0.00-0 .40 above high normal Not Available [facility] ([facility]) [address] [facility], [place], [address], 04/19/2023 11:14:10 04/02/19 24 04/03/2023 NOLASCO FIBRO SURE( R) PLUS steatosis grade COMMEN T S1 - Mild Steat osis (But Clini koki Signi fican t) (5-33 %) Not Available [facility] ([facility]) [address] [place], [address], 04/19/2023 11:14:10 04/02/19 24 04/03/2023 NOLASCO FIBRO SURE( R) PLUS nolasco score 0.96 0.00-0 .25 above high normal Not Available [facility] ([facility]) [address] [place], [address], 04/19/2023 11:14:10 04/02/19 24 04/03/2023 NOLASCO FIBRO SURE( R) PLUS nolasco grade COMMEN T N3 - Sever e NOLASCO Not Available [facility] ([facility]) [address] [facility], [place], [address], 04/19/2023 11:14:10 04/02/19 24 04/03/2023 NOLASCO FIBRO SURE( R) PLUS alpha 2-macroglobu mason, qn 526 mg/dL 110-27 6 above high normal Not Available [facility] ([facility]) [address] [facility], [place], [address], 04/19/2023 11:14:10 04/02/19 24 04/03/2023 NOLASCO FIBRO SURE( R) PLUS haptoglobin 119 mg/dL 34-355 Not Available [facility] ([facility]) [address] [facility], [place], [address], 04/19/2023 11:14:10 04/02/19 24 04/03/2023 NOLASCO FIBRO SURE( R) PLUS apolipoprote in A-1 150 mg/dL 101-17 8 Not Available [facility] ([facility]) [address] [place], [address], 04/19/2023 11:14:10 04/02/19 24 04/03/2023 NOLASCO FIBRO SURE( R) PLUS bilirubin, total 0.9 mg/dL 0.0-1. 2 Not Available [facility] ([facility]) [address] [place], [address], 04/19/2023 11:14:10 04/02/19 24 04/03/2023 NOLASCO FIBRO SURE( R) PLUS GGT 61 IU/L 0-65 Not Available [facility] ([facility]) [address] [place], [address], 04/19/2023 11:14:10 04/02/19 24 04/03/2023 NOLASCO FIBRO SURE( R) PLUS ALT (SGPT) p5p 131 IU/L 0-55 above high normal Not Available [facility] ([facility]) [address] [place], [address], 04/19/2023 11:14:10 04/02/19 24 04/03/2023 NOLASCO FIBRO SURE( R) PLUS AST (SGOT) p5p 108 IU/L 0-40 above high normal Not Available [facility] ([facility]) [address] [place], [address], 04/19/2023 11:14:10 04/02/19 24 04/03/2023 NOLASCO FIBRO SURE( R) PLUS cholesterol, total 246 mg/dL 100-19 9 above high normal Not Available [facility] ([facility]) [address] [place], [address], 04/19/2023 11:14:10 04/02/19 24 04/03/2023 NOLASCO FIBRO SURE( R) PLUS glucose, serum 83 mg/dL 70-99 Not Available [facility] ([facility]) [address] [place], [address], 04/19/2023 11:14:10 04/02/19 24 04/03/2023 NOLASCO FIBRO SURE( R) PLUS triglyceride s 184 mg/dL 0-149 above high normal Not Available [facility] ([facility]) [address] [place], [address], 04/19/2023 11:14:10 04/02/19 24 04/03/2023 CBC, PLATE LET, NO DIFFE RENTI AL WBC 5.5 x10e3 /uL 3.4-10 .8 Not Available [facility] ([facility]) [address] [place], [address], 04/19/2023 11:14:12 04/02/19 24 04/03/2023 CBC, PLATE LET, NO DIFFE RENTI AL RBC 5.16 x10e6 /uL 4.14-5 .80 Not Available [facility] ([facility]) [address] [place], [address], 04/19/2023 11:14:12 04/02/19 24 04/03/2023 CBC, PLATE LET, NO DIFFE RENTI AL hemoglobin 16.7 g/dL 13.0-1 7.7 Not Available [facility] ([facility]) [address] [facility], [place], [address], 04/19/2023 11:14:12 04/02/19 24 04/03/2023 CBC, PLATE LET, NO DIFFE RENTI AL hematocrit 48.4 % 37.5-5 1.0 Not Available [facility] ([facility]) [address] [facility], [place], [address], 04/19/2023 11:14:12 04/02/19 24 04/03/2023 CBC, PLATE LET, NO DIFFE RENTI AL MCV 94 fL 79-97 Not Available [facility] ([facility]) [address] [facility], [place], [address], 04/19/2023 11:14:12 04/02/19 24 04/03/2023 CBC, PLATE LET, NO DIFFE RENTI AL MCH 32.4 pg 26.6-3 3.0 Not Available [facility] ([facility]) [address] [facility], [place], [address], 04/19/2023 11:14:12 04/02/19 24 04/03/2023 CBC, PLATE LET, NO DIFFE RENTI AL MCHC 34.5 g/dL 31.5-3 5.7 Not Available [facility] ([facility]) [address] [facility], [place], [address], 04/19/2023 11:14:12 04/02/19 24 04/03/2023 CBC, PLATE LET, NO DIFFE RENTI AL RDW 13.3 % 11.6-1 5.4 Not Available [facility] ([facility]) [address] [facility], [place], [address], 04/19/2023 11:14:12 04/02/19 24 04/03/2023 CBC, PLATE LET, NO DIFFE RENTI AL platelets 167 x10e3 /uL 150-45 0 Not Available [facility] ([facility]) [address] [facility], [place], [address], 04/19/2023 11:14:12 04/02/19 24 04/03/2023 CBC, PLATE LET, NO DIFFE RENTI AL NRBC 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 5 above high normal Not Available [facility] ([facility]) [address] [facility], [place], [address], 04/19/2023 11:14:13 04/02/19 24 04/03/2023 HEPAT IC FUNCT ION PANEL (7) albumin 4.8 g/dL 3.8-4. 8 Not Available [facility] ([facility]) [address] [facility], [place], [address], 04/19/2023 11:14:13 04/02/19 24 04/03/2023 HEPAT IC FUNCT ION PANEL (7) bilirubin, total 0.9 mg/dL 0.0-1. 2 Not Available [facility] ([facility]) [address] [facility], [place], [address], 04/19/2023 11:14:13 04/02/19 24 04/03/2023 HEPAT IC FUNCT ION PANEL (7) bilirubin, direct 0.25 mg/dL 0.00-0 .40 Not Available [facility] ([facility]) [address] [facility], [place], [address], 04/19/2023 11:14:13 04/02/19 24 04/03/2023 HEPAT IC FUNCT ION PANEL (7) alkaline phosphatase 107 IU/L 44-121 Not Available [facility] ([facility]) [address] [facility], [place], [address], 04/19/2023 11:14:13 04/02/19 24 04/03/2023 HEPAT IC FUNCT ION PANEL (7) AST (SGOT) 97 IU/L 0-40 above high normal Not Available [facility] ([facility]) [address] [facility], [place], [address], 04/19/2023 11:14:13 04/02/19 24 04/03/2023 HEPAT IC FUNCT ION PANEL (7) ALT (SGPT) 106 IU/L 0-44 above high normal Not Available [facility] ([facility]) [address] [facility], [place], [address], 04/19/2023 11:14:13 04/02/19 24 04/02/2023 A1A, QUANT [...] ders to discu ss resul ts at [phone] GENE (2662 ). Test Detai ls: Two varia nts [...] es in the SERPI NA1 gene (NM_[id number] .[id number]) was perfo rmed by multi plex [...] RA, Duke anderson G, Rk ly ML, Sole s M, [...] doi: 10.15 326/j copdf .3.2014. 0182. PMID: 94231 891; PMCID : PMC55 11445 . Yuval GRIFFITH, Glynn burton V, Monroe SANTOS. Alpha -1 Antit rypsi n Defic iency . 2005Jan 05 [Upda bhavesh 2019July 30]. In: [place] MP, [facility], Severino MEADOWS, et al., kanwal rs. GeneR james sams(R) [Inte rnet] . Girish dawson ([place]): [facility]; 1992- 2020. Avail able from: https ://dean w.ncb i.nlm .nih. gov/b ooks/ NBK15 19/ Not Available [facility] ([facility]) [address] [place], [address], 04/19/2023 11:14:14 04/02/19 24 04/04/2023 A1A, QUANT +OH TYPE( RFX PHENO ) reprd-3-rynx trypsin, serum 165 mg/dL 101-18 7 Not Available [facility] ([facility]) [address] [place], [address], 04/19/2023 11:14:14 04/02/19 24 04/10/2023 A1A, QUANT [...] n and Comme nts. Not Available [facility] ([facility]) [address] [facility], [place], [address], 04/19/2023 11:14:14 04/02/19 24 04/10/2023 A1A, QUANT +OH TYPE( RFX PHENO ) electronical ly signed by: CINDA MORFIN, PHD Not Available [facility] ([facility]) [address] [place], [address], 04/19/2023 11:14:14 04/02/19 24 04/10/2023 A1A, QUANT +OH TYPE( RFX PHENO ) a1a rfx to phenotype NOT INDICA BHAVESH Not Available [facility] ([facility]) [address] [place], [address], 04/19/2023 11:14:14 04/02/19 24 04/03/2023 ACUTE HEPAT ITIS hep A Ab, IgM NEGATI VE negati ve Not Available [facility] ([facility]) [address] [place], [address], 04/19/2023 11:14:15 04/02/19 24 04/03/2023 ACUTE HEPAT ITIS HBsAg screen NEGATI VE negati ve Not Available [facility] ([facility]) [address] [place], [address], 04/19/2023 11:14:15 04/02/19 24 04/03/2023 ACUTE HEPAT ITIS hep B core Ab, IgM NEGATI VE negati ve Not Available [facility] ([facility]) [address] [facility], [place], [address], 04/19/2023 11:14:15 04/02/19 24 04/03/2023 ACUTE HEPAT ITIS HCV Ab NON REACTI VE non reacti ve Not Available [facility] ([facility]) [address] [facility], [place], [address], 04/19/2023 11:14:15 04/02/19 24 04/03/2023 ACUTE HEPAT ITIS interpretati on: COMMEN T Not infec bhavesh with HCV unles s early or acute infec tion is suspe cted (whic h may be delay ed in an immun ocomp romis ed indiv idual ), or other evide nce exist s to indic ate HCV infec tion. Not Available [facility] ([facility]) [address] [facility], [place], [address], 04/19/2023 11:14:15 04/02/19 24 04/03/2023 PROTH ROMBI [...] range 2.5 - 3.5 Not Available [facility] ([facility]) [address] [facility], [place], [address], 04/19/2023 11:14:16 04/02/19 24 04/03/2023 PROTH ROMBI N TIME (PT), SERIA L prothrombin time 12.0 sec 9.1-12 .0 Not Available [facility] ([facility]) [address] [facility], [place], [address], 04/19/2023 11:14:16 04/02/19 24 04/03/2023 PROTH ROMMONET N TIME (PT), SERIA L pdf . Not Available [facility] ([facility]) [address], [place], [address], 04/19/2023 11:14:16 04/02/19 24 04/18/2023 HERED .HEMO [...] ders to discu ss resul ts at [phone]- GENE (9978 ). Test Detai ls: Three varia nts christopher zed: c.845 G>A (p.Cy s282T yr), commo nly refer red to as C282Y c.187 C>G (p.Hi s63As p), commo nly refer red to as H63D c.193 A> T (p.Se r65Cy s), commo nly refer red to as S65C Metho ds/Li mitat ions: DNA Christopher sis of the HFE gene ([id number] .[id number]) was perfo rmed by PCR ampli [...] 3. doi: 10.10 02/ p.243 30. PMID: 18026 290; PMCID : PMC31 77455 . Robert G, Shabana ot P, Brandon [...] hg.20 15.12 8. Epub 2014Sep 16. PMID: 56004 218; PMCID : PMC49 18361 . Not Available [facility] [address], [place], [address], 04/19/2023 11:14:18 04/02/19 24 04/18/2023 HERED .HEMO CHROM ATOSI S, DNA reviewed by: FAITH [employer] [place] n[facility] perfo rmed at [facility]P Profe ssion al [place] n[facility] perfo rmed by: Marcell lieberman, Ph.D. , [facility] [employer], [employer] [address] [place] [address] Not Available [facility] ([facility]) [address] [place], [address], 04/19/2023 11:14:18 04/02/19 24 04/03/2023 AFP, SERUM [...] the prese nce or absen ce of [facility] se. This test is not inter preta ble in pregn ant femal es. Not Available [facility] ([facility]) [address] [facility], [place], [address], 04/19/2023 11:14:19 04/02/19 24 04/03/2023 HEPAT ITIS B SURF AB QUANT hepatitis B surf Ab quant 3.3 mIU/m L immuni ty>9.9 below low normal Statu s of Immun ity Anti- HBs Level ----- ----- ----- --- ----- ----- ---- Incon siste nt with Immun ity 0.0 - 9.9 Consi stent with Immun ity >9.9 Not Available [facility] ([facility]) [address] [place], [address], 04/19/2023 11:14:20 04/02/19 24 04/03/2023 ACTIN (SMOO [...] bilia ry cirrh osis. Not Available [facility] ([facility]) [address] [place], [address], 04/19/2023 11:14:21 04/02/19 24 04/03/2023 MITOC HONDR IAL (M2) ANTIB LEANDRO mitochondria l (M2) antibody <20.0 units 0.0-20 .0 Negat pepe 0.0 - 20.0 Equiv ocal 20.1 - 24.9 Posit pepe >24.9 Mitoc hondr ial (M2) Antib odies are found in 90-96 % of patie nts with prima ry bilia ry cirrh osis. Not Available [facility] ([facility]) [address] [place], [address], 04/19/2023 11:14:22 04/02/19 24 04/03/2023 GONZALO W/REF SALIMA GONZALO direct POSITI VE negati ve abnormal Not Available [facility] ([facility]) [address] [place], [address], 04/19/2023 11:14:23 04/02/19 24 04/03/2023 GONZALO W/REF SALIMA anti-DNA (ds) Ab qn 27 IU/mL 0-9 above high normal Negat pepe <5 Equiv ocal 5 - 9 Posit pepe >9 Not Available [facility] ([facility]) [address] [place], [address], 04/19/2023 11:14:23 04/02/19 24 04/03/2023 GONZALO W/REF SAILMA senior web analyst antibodies 0.8 ai 0.0-0. 9 Not Available [facility] ([facility]) [address] [place], [address], 04/19/2023 11:14:23 04/02/19 24 04/03/2023 GONZALO W/REF SALIMA carpio antibodies <0.2 ai 0.0-0. 9 Not Available [facility] ([facility]) [address] [place], [address], 04/19/2023 11:14:23 04/02/19 24 04/03/2023 GONZALO W/REF SALIMA antisclerode rma-70 antibodies 0.2 ai 0.0-0. 9 Not Available [facility] ([facility]) [address] [place], [address], 04/19/2023 11:14:23 04/02/19 24 04/03/2023 GONZALO W/REF SALIMA sjogren's anti-ss-A <0.2 ai 0.0-0. 9 Not Available [facility] ([facility]) [address] [place], [address], 04/19/2023 11:14:23 04/02/19 24 04/03/2023 GONZALO W/REF SALIMA sjogren's anti-ss-B <0.2 ai 0.0-0. 9 Not Available [facility] ([facility]) [address] [place], [address], 04/19/2023 11:14:23 04/02/19 24 04/03/2023 GONZALO W/REF SALIMA thyroid peroxidase (tpo) Ab 170 IU/mL 0-34 above high normal Not Available [facility] ([facility]) [address] [place], [address], 04/19/2023 11:14:23 04/02/19 24 04/03/2023 GONZALO W/REF SALIMA antichromati n antibodies 6.0 ai 0.0-0. 9 above high normal Not Available [facility] ([facility]) [address] [place], [address], 04/19/2023 11:14:23 04/02/19 24 04/03/2023 GONZALO W/REF SALIMA anti-centrom ere B antibodies <0.2 ai 0.0-0. 9 Not Available [facility] ([facility]) [address] [place], [address], 04/19/2023 11:14:23 04/02/19 24 04/05/2023 GONZALO W/REF SALIMA complement C3, serum 155 mg/dL 82-167 Not Available [facility] ([facility]) [address] [place], [address], 04/19/2023 11:14:23 04/02/19 24 04/05/2023 GONZALO W/REF SALIMA complement C4, serum 16 mg/dL 12-38 Not Available [facility] ([facility]) [address] [place], [address], 04/19/2023 11:14:23 04/02/19 24 04/05/2023 GONZALO W/REF SALIMA rheumatoid factor (rf) 12.2 IU/mL <14.0 Not Available [facility] ([facility]) [address] [place], [address], 04/19/2023 11:14:23 04/02/19 24 04/05/2023 GONZALO W/REF SALIMA anti-ccp Ab, IgG/IgA 14 units 0-19 Negat pepe <20 Weak posit pepe 20 - 39 Moder ate posit pepe 40 - 59 Stron g posit pepe >59 Not Available [facility] ([facility]) [address] [place], [address], 04/19/2023 11:14:23 04/02/19 24 04/05/2023 GONZALO W/REF SALIMA anticardioli pin Ab,IgG,qn 15 gpl_U /mL 0-14 above high normal Negat pepe: <15 Indet ermin ate: 15 - 20 Low-M ed Posit pepe: >20 - 80 High Posit pepe: >80 Not Available [facility] ([facility]) [address] [place], [address], 04/19/2023 11:14:23 04/02/19 24 04/05/2023 GONZALO W/REF SALIMA anticardioli pin Ab,IgM,qn 15 mpl_U /mL 0-12 above high normal Negat pepe: <13 Indet ermin ate: 13 - 20 Low-M ed Posit pepe: >20 - 80 High Posit pepe: >80 Not Available [facility] ([facility]) [address] [place], [address], 04/19/2023 11:14:23 04/02/19 24 04/05/2023 GONZALO W/REF SALIMA anticardioli pin Ab,IgA,qn <9 apl_U /mL 0-11 Negat pepe: <12 Indet ermin ate: 12 - 20 Low-M ed Posit pepe: >20 - 80 High Posit pepe: >80 Not Available [facility] ([facility]) [address] [place], [address], 04/19/2023 11:14:23 04/02/19 24 04/03/2023 IMMUN OGLOB ULIN G, QN, SERUM immunoglobul in g, qn, serum 3136 mg/dL 603-16 13 above high normal Not Available [facility] ([facility]) [address] [place], [address], 04/19/2023 11:14:25 04/02/19 24 04/03/2023 ALPHA -1-AN TITRY PSIN, SERUM [id number] trypsin, serum 157 mg/dL 101-18 7 Not Available [facility] ([facility]) [address] [place], [address], 04/19/2023 11:14:26 04/02/19 24 04/03/2023 HEP A [...] Antib leandro w/ Rfx). Not Available [facility] ([facility]) [address] [facility], [place], [address], 04/19/2023 11:14:27 04/25/19 24 04/25/2023 BUN BUN 17 mg/dL 7-18 Not Available [facility] ([facility]) [address] [facility], [place], [address], 04/25/2023 09:27:18 04/25/19 24 04/25/2023 CREAT ININE creatinine 1.0 mg/dL 0.6-1. 3 Not Available [facility] ([facility]) [address] [facility], [place], [address], 04/25/2023 09:27:20 04/25/19 24 04/25/2023 CREAT ININE glomerular filtration rate TNP mlper min 60- TEST NOT PERFO RMED GFR has only been valid ated from 18 to 70 years of age. Not Available [facility] ([facility]) [address] [facility], [place], [address], 04/25/2023 09:27:20 08/09/19 24 08/10/2023 COMP. METAB OLIC PANEL (14) glucose 86 mg/dL 70-99 Not Available [facility] ([facility]) [address] [facility], [place], [address], 08/10/2023 11:12:42 08/09/19 24 08/10/2023 COMP. METAB OLIC PANEL (14) BUN 16 mg/dL 8-27 Not Available [facility] ([facility]) [address] [facility] [place], [address], 08/10/2023 11:12:42 08/09/19 24 08/10/2023 COMP. METAB OLIC PANEL (14) creatinine 1.04 mg/dL 0.76-1 .27 Not Available [facility] ([facility]) [address] [facility] [place], [address], 08/10/2023 11:12:42 08/09/19 24 08/10/2023 COMP. METAB OLIC PANEL (14) eGFR 75 mL/mi n/1.7 3 >59 Not Available [facility] ([facility]) [address] [facility] [place], [address], 08/10/2023 11:12:42 08/09/19 24 08/10/2023 COMP. METAB OLIC PANEL (14) BUN/creatini ne ratio 15 10-24 Not Available [facility] ([facility]) [address] [facility] [place], [address], 08/10/2023 11:12:42 08/09/19 24 08/10/2023 COMP. METAB OLIC PANEL (14) sodium 137 mmol/ L 134-14 4 Not Available [facility] ([facility]) [address] [facility] [place], [address], 08/10/2023 11:12:42 08/09/19 24 08/10/2023 COMP. METAB OLIC PANEL (14) potassium 4.9 mmol/ L 3.5-5. 2 Not Available [facility] ([facility]) [address] [facility] [place], [address], 08/10/2023 11:12:42 08/09/19 24 08/10/2023 COMP. METAB OLIC PANEL (14) chloride 101 mmol/ L 96-106 Not Available [facility] ([facility]) [address] [facility], [place], [address], 08/10/2023 11:12:42 08/09/19 24 08/10/2023 COMP. METAB OLIC PANEL (14) carbon dioxide, total 24 mmol/ L Not Available [facility] ([facility]) [address] [place], [address], 08/10/2023 11:12:42 08/09/19 24 08/10/2023 COMP. METAB OLIC PANEL (14) calcium 9.8 mg/dL 8.6-10 .2 Not Available [facility] ([facility]) [address] [place], [address], 08/10/2023 11:12:42 08/09/19 24 08/10/2023 COMP. METAB OLIC PANEL (14) protein, total 8.4 g/dL 6.0-8. 5 Not Available [facility] ([facility]) [address] [place], [address], 08/10/2023 11:12:42 08/09/19 24 08/10/2023 COMP. METAB OLIC PANEL (14) albumin 4.3 g/dL 3.8-4. 8 Not Available [facility] ([facility]) [address] [place], [address], 08/10/2023 11:12:42 08/09/19 24 08/10/2023 COMP. METAB OLIC PANEL (14) globulin, total 4.1 g/dL 1.5-4. 5 Not Available [facility] ([facility]) [address] [place], [address], 08/10/2023 11:12:42 08/09/19 24 08/10/2023 COMP. METAB OLIC PANEL (14) A/G ratio 1.0 1.2-2. 2 below low normal Not Available [facility] ([facility]) [address] [place], [address], 08/10/2023 11:12:42 08/09/19 24 08/10/2023 COMP. METAB OLIC PANEL (14) bilirubin, total 1.0 mg/dL 0.0-1. 2 Not Available [facility] ([facility]) [address] [facility], [place], [address], 08/10/2023 11:12:42 08/09/19 24 08/10/2023 COMP. METAB OLIC PANEL (14) alkaline phosphatase 85 IU/L 44-121 Not Available [facility] ([facility]) [address] [facility], [place], [address], 08/10/2023 11:12:42 08/09/19 24 08/10/2023 COMP. METAB OLIC PANEL (14) AST (SGOT) 74 IU/L 0-40 above high normal Not Available [facility] ([facility]) [address] [facility], [place], [address], 08/10/2023 11:12:42 08/09/19 24 08/10/2023 COMP. METAB OLIC PANEL (14) ALT (SGPT) 75 IU/L 0-44 above high normal Not Available [facility] ([facility]) [address] [facility], [place], [address], 08/10/2023 11:12:42 08/09/19 24 08/10/2023 CBC, PLATE LET, NO DIFFE RENTI AL WBC 4.6 x10e3 /uL 3.4-10 .8 Naif ified by repea t christopher sis Not Available [facility] ([facility]) [address] [facility], [place], [address], 08/10/2023 11:12:44 08/09/19 24 08/10/2023 CBC, PLATE LET, NO DIFFE RENTI AL RBC 4.66 x10e6 /uL 4.14-5 .80 Not Available [facility] ([facility]) [address] [place], [address], 08/10/2023 11:12:44 08/09/19 24 08/10/2023 CBC, PLATE LET, NO DIFFE RENTI AL hemoglobin 15.0 g/dL 13.0-1 7.7 Not Available [facility] ([facility]) [address] [facility], [place], [address], 08/10/2023 11:12:44 08/09/19 24 08/10/2023 CBC, PLATE LET, NO DIFFE RENTI AL hematocrit 43.6 % 37.5-5 1.0 Not Available [facility] ([facility]) [address] [facility], [place], [address], 08/10/2023 11:12:44 08/09/19 24 08/10/2023 CBC, PLATE LET, NO DIFFE RENTI AL MCV 94 fL 79-97 Not Available [facility] ([facility]) [address] [facility], [place], [address], 08/10/2023 11:12:44 08/09/19 24 08/10/2023 CBC, PLATE LET, NO DIFFE RENTI AL MCH 32.2 pg 26.6-3 3.0 Not Available [facility] ([facility]) [address] [facility], [place], [address], 08/10/2023 11:12:44 08/09/19 24 08/10/2023 CBC, PLATE LET, NO DIFFE RENTI AL MCHC 34.4 g/dL 31.5-3 5.7 Not Available [facility] ([facility]) [address] [facility], [place], [address], 08/10/2023 11:12:44 08/09/19 24 08/10/2023 CBC, PLATE LET, NO DIFFE RENTI AL RDW 14.0 % 11.6-1 5.4 Not Available [facility] ([facility]) [address] [facility], [place], [address], 08/10/2023 11:12:44 08/09/19 24 08/10/2023 CBC, PLATE LET, NO DIFFE RENTI AL platelets 138 x10e3 /uL 150-45 0 below low normal Not Available [facility] ([facility]) [address] [facility], [place], [address], 08/10/2023 11:12:44 08/09/19 24 08/10/2023 CBC, PLATE LET, NO DIFFE RENTI AL NRBC [employer] WORK[employer] Not Available [facility] ([facility]) [address], [place], [address], 08/10/2023 11:12:44 04/10/19 24 04/10/2023 US, liver [facility]y Hospit al [address] [place] [address] Phone: Fax: Name: HERO PATINO Exam Date: 024 : [birth year] Age 72 Gender : M Access ion: [id number] Physic rudy: BRONWYN WHITT Facili ty: [facility] Facili ty HSV: Outpat ient [...] for referr leighann PATINO , HERO to [facility]. Legall y authen ticate d by POPE CHANTAL Napier 04-10 10:30: 03 CC'ed Logic: Orderi ng Provid er: WHITT [place] Attend ing Provid er: [place]ITT [place] Admitt ing Provid er: [place] [email or web address] [facility] [address] [facility], [place], [address], 04/13/2023 17:41:14 04/25/19 24 04/25/2023 CT ABD w/w/O [facility] [address] [facility] [place] [address] Phone: Fax: Name: HERO PATINO Exam Date: : [birth year] Age 72 Gender : M Access ion: [id number] Physic rudy: BRONWYN WHITT Facili ty: [facility] Facili ty HSV: Outpat ient Exam: [...] mass measur ing 4 cm in the curtain stitcher ior right kidney . There is also a 1.[address] nonenh ancing mass in the curtain stitcher ior left kidney . A 5 mm [...] Thank you for referr HERO Arzola to [facility]. Legall y authen ticate d by POPE CHANTAL Napier 04-25 11:35: 24 CC'ed Logic: Orderi ng Provid er: WHITT [place]YN [place] Attend ing Provid er: [place] Admitt ing Provid er: [place] [email or web address] [facility] [address] [place] [address], [place], [address], 04/27/2023 14:25:16 08/15/19 24 08/15/2023 CT BX of liver -need le [facility] [address] [place] [address] Phone: Fax: Name: HERO PATINO Exam Date: 08/15/19 24 : [birth year] Age 72 years Gender : M Access ion: [id number] Physic rudy: BRONWYN WHITT [place] Facili ty: [facility] Facili ty HSV: Outpat ient Exam: [...] BY DR. CHANTAL DURAND. TRANSC RIBED BY CAMREON MIX, PAC. Dictat ed By: CHANTAL DURAND Dictat ed Date: 08/15/19 9:17:2 0 AM Electr onical ly signed by: CHANTAL DURAND 08/15/19 Thank you for referr HERO Arzola to [facility]. Legall y authen ticate d by POPE CHANTAL Napier 08-14 09:11: 59 CC'ed Logic: Orderi ng Provid er: WHITT [place]YN [place] Attend ing Provid er: WHITT [place] Referr ing Provid er: WHITT [place] Admitt ing Provid er: [place] [email or web address] [facility] [address] [facility], [place], [address], 08/22/2023 12:59:58 08/15/19 24 08/15/2023 CT BX of liver -need le [facility] [address] [facility] [place] [address] Phone: Fax: Name: HERO PATINO Exam Date: 08/15/19 : [birth year] Age 72 years Gender : M Access ion: [id number] Physic rudy: BRONWYN WHITT [place] Facili ty: [facility] Facili ty HSV: Outpat ient Exam: [...] you for referr ing HERO PATINO to [facility] it Hospit al. Legall y authen ticate d by POPE CHANTAL Napier 2023-0 08-14 09:17: 20 CC'ed Logic: Orderi ng Provid er: WHITT BRONWYN [place] Attend ing Provid er: WHITT [place] Referr ing Provid er: WHITT [place] Admitt ing Provid er: WHITT BRONWYN [place] [facility] [address], [place], [address], 08/22/2023 12:59:58 Result Notes None recorded. Problems Name Problem SNOMED Code Status Onset Date Resolution Date Notes Provider Name and Address Organization Details Recorded Time Constipation 48518791 Active 2022 Barrera Rodnye PA-C [address] [facility], [place], [address] , [facility] [place] 3 09:28:37 Problem Notes None recorded. Procedures Surgical History Date Name Laterality Status Provider Name and Address Organization Details Recorded Time 4 Procedure Note completed BRIAN WHITT MSN, OVERLOCK COLLAR SETTER, VASC TECH-C [address] [facility], [place], [address], [facility] [place] 08/09/2023 09:21:29 4 Procedure Note completed BRIAN WHITT MSN, OVERLOCK COLLAR SETTER, VASC TECH-C [address] [facility], [place], [address], [facility] [place] 05/14/2023 09:32:45 4 Procedure Note completed BRIAN WHITT MSN, OVERLOCK COLLAR SETTER, VASC TECH-C [address] [facility], [place], [address], [facility] - [facility] & [place] 04/02/2023 11:35:51 hernia repair completed Emma Ramirez [facility] [place] 09/13/2022 08:53:22 Imaging Results None recorded. Procedure Notes None recorded. Medical Equipment None [...] Address Organization Details Last Updated DateTime 03/15/2022 93638.48 g 137 mm[Hg] 84 mm[Hg] Jovanna Hood [place] - [facility] - [place] [facility] [place] 03/15/2022 09:18:03 Date Recorded Body height Body mass index (BMI) Body weight Body temperature Oxygen saturation Oxygen saturation in Arterial blood by Pulse oximetry Heart rate Heart rate Systolic blood pressure Diastolic blood pressure Provider Name and Address Organization Details Last Updated DateTime 4 175.26 cm 27.1 kg/m2 25149.9 2 g 97.5 [degF] 99 % 99 % 63 /min 59 /min 164 mm[Hg] 87 mm[Hg] Jamarimariannashazia Pineda YESSICA [facility] & [place] 4 09:42:18 Date Recorded Body height Body mass index (BMI) Body weight Body temperature Oxygen saturation Oxygen saturation in Arterial blood by Pulse oximetry Heart rate Heart rate Systolic blood pressure Diastolic blood pressure Provider Name and Address Organization Details Last Updated DateTime 4 175.26 cm 26.7 kg/m2 49743.2 2 g 98.1 [degF] 98 % 98 % 64 /min 61 /min 127 mm[Hg] 71 mm[Hg] Emma JUAN [facility] [place] 4 09:31:10 Date Recorded Body height Body mass index (BMI) Body weight Body temperature Oxygen saturation Oxygen saturation in Arterial blood by Pulse oximetry Heart rate Heart rate Systolic blood pressure Diastolic blood pressure Provider Name and Address Organization Details Last Updated DateTime 4 175.26 cm 25.9 kg/m2 27322.1 8 g 97.7 [degF] 99 % 99 % 52 /min 55 /min 133 mm[Hg] 70 mm[Hg] Naz Pineda YESSICA [facility] [place] 4 08:58:27 Date Recorded Body weight Body mass index (BMI) Body height Body temperature Oxygen saturation Oxygen saturation in Arterial blood by Pulse oximetry Systolic blood pressure Diastolic blood pressure Provider Name and Address Organization Details Last Updated DateTime 3 35480.6 5 g 25.3 kg/m2 175.26 cm 98.2 [degF] 97 % 97 % 134 mm[Hg] 81 mm[Hg] Emma MONTES DE OCA [facility] [place] 3 08:57:20 Social History Question Answer Notes LastModified by Organizat ion Details LastModified Time Tobacco Smoking Status Never Smoker YESSICA Reynoso [facility] [place] 09/13/2022 08:53:57 What Is Your Level Of Caffeine Consumption? Moderate [email or web address] Information not available 09/13/2022 Sex: Unknown Functional Status Question Answer Note LastModified by Organizat ion Details LastModified Time Do you use any illicit or recreational drugs? No [email or web address] Information not available 09/13/2022 Do you or have you ever used any other forms of tobacco or nicotine? No [email or web address] Information not available 09/13/2022 What is your level of alcohol consumption? None [email or web address] Information not available 09/13/2022 Mental Status None [...] SNOMED-CT Code Diagnosis ICD10 Code Diagnosis Note [id number] Katelyn Gonzalez NP [facility] [address] [address] 03/15/2022 08:56:58 03/15/2022 10:28:25 History of polyp of colon 324538504 Z86.010 - colonoscop y scheduled History of heartburn 113 6039078 9109 Z87.19 - famotidine once daily or as needed- stay upright 30-60 minutes after eating- avoid trigger foods [id number] Barrera Rodney PA-C [facility] [address] [address] 09/13/2022 08:37:06 09/13/2022 09:23:23 Constipation 19404876 K59.00 History of polyp of colon 420164128 Z86.010 History of heartburn 816 2073010 9109 Z87.19 890347 Hector Cabezas MD [facility] [address] [address] 04/02/2023 09:30:18 04/02/2023 11:06:32 Liver enzymes level above reference range 260645388 R74.01 Constipation 61013607 K5 9.00 History of polyp of colon 993680544 Z86.010 History of heartburn 379 6288324 9109 Z87.19 076494 Hector Cabezas MD [facility] [address] [address] 05/14/2023 09:25:52 05/14/2023 10:26:30 Liver enzymes level above reference range 235218820 R74.01 Constipation 24196424 K5 9.00 History of polyp of colon 324483711 Z86.010 History of heartburn 882 6005922 9109 Z87.19 Anti-nucle ar factor detected 625015666 R76.8 [id number] Hector Cabezas MD [facility] [address] [address] 08/09/2023 08:35:27 08/09/2023 09:47:48 Liver enzymes level above reference range 617163592 R74.01 Constipation 46253145 K5 9.00 History of polyp of colon 409596103 Z86.010 History of heartburn 048 2272950 9109 Z87.19 Anti-nucle ar factor detected 903905368 R76.8 Health Concerns Section Related Observation LastModified by Organization Detai ls LastModified Time None Recorded Concern Status LastModified by Organization Details LastModified Time None Recorded Advance Directives Directive None Recorded Payers Insurance Date Sequence Insurance Name Policy Number Policy Vides Covered Member ID Vides Member ID Guarantor Name 06/09/2024 1 [employer] (MEDICARE REPLACEMENT/A DVANTAGE - PPO) Hero Patino [id number] Hero Patino Notes Date Note Type Note Provider Name and Address Organization Details Recorded Time 03/15/2022 text/html Patient is a 71-year-old male here today for follow-up after colonoscopy done 01/31/[address] Viera in [place]. referral was for repeat evaluation by Dr [...] ago. Denies complaints or concerns otherwise Katelyn Gonzalez NP [address], [place], [address], [facility] & [place] 03/15/2022 11:58:50 09/13/2022 text/html PREVIOUS (03/15/22 ): Patient is a 71-year-old male here today for follow-up after colonoscopy done 01/31/[address] Viera in [place]. referral was for repeat evaluation by Dr [...] repeat was recommended. Barrera Rodney PA-C [address], [place], [address], [facility] & [place] 09/13/2022 16:00:36 04/02/2023 text/html PREVIOUS (03/15/22 Tiffanie Gonzalez): Patient is a 71-year-old male here today for follow-up after colonoscopy done 01/31/[address] Viera in [place]. referral was for repeat evaluation by Dr [...] year repeat was recommended. CURRENT (04/02/23 Marlo Whitt): Mr. Patino presents to the clinic today [...] 2 soft bowel movements per day. BRIAN WHITT MSN, OVERLOCK COLLAR SETTER, VASC TECH-C [address], [place], [address], [place] - [facility] [place] [facility] [place] 04/02/2023 11:56:15 05/14/2023 text/html PREVIOUS (03/15/22 Tiffanie Gonzalez): Patient is a 71-year-old male here today for follow-up after colonoscopy done 01/31/[address] Viera in [place]. referral was for repeat evaluation by Dr [...] year repeat was recommended. CURRENT (04/02/23 Marlo Whitt): Mr. Patino presents to the clinic today [...] bowel movements per day. CURRENT (05/14/23 Marlo Whitt): Mr. Patino presents to the clinic today [...] issues, ascites, hematemesis, hematochezia or melena. BRIAN WHITT MSN, OVERLOCK COLLAR SETTER, VASC TECH-C [address] [facility], [place], [address], [facility] - [place] - [place] [facility] [place] 05/14/2023 12:57:53 08/09/2023 text/html PREVIOUS (03/15/22 Tiffanie Gonzalez): Patient is a 71-year-old male here today for follow-up after colonoscopy done 01/31/[address] Viera in [place]. referral was for repeat evaluation by Dr [...] year repeat was recommended. PREVIOUS (04/02/23 B. Whitt): Mr. Patino presents to the clinic today [...] bowel movements per day. PREVIOUS (05/14/23 B. Whitt): Mr. Patino presents to the clinic today [...] hematemesis, hematochezia or melena. CURRENT (08/09/23 Marlo Whitt): Mr. Patino presents to the clinic today for follow-up. [facility] never called him to schedule his [...] extremity edema, hematemesis, hematochezia or melena. BRIAN WHITT MSN, OVERLOCK COLLAR SETTER, VASC TECH-C [address] [facility], [place], [address], [place] - [facility] [place] [facility] [place] 08/09/2023 10:07:11
--- OUTSIDE RECORDS SUMMARY | 2024-08-29 07:22 | XMS_ITS | Encounter Summary ---
Author Organization Healthcare Address [address] [place] [address] Care Team Providers Care Legal Stenographer Name Role Phone Luis Lawson MD Primary Care Provider [phone] Encounter Details Date Type Department Care Team (Late st Contact Info) Description 07/30/2024 Telephone [facility] [address] [place] [id number] Lori Levi, RN [facility] Social [...] Miscellaneous Notes * Telephone Encounter - Lori Levi, RN - 07/30/2024 3:51 PM EDT Images from the original note were not included. S/W patient, gave him Dr Alberto's message Verbalized understanding, no questions Jenny Alberto MD [facility] Gastroenterology Liver Nursing Staff Pls tell pt that the kidney appears was assessed to be likely benign and 6month followup is recommended. I would suggesting followup with your primary care provider for further kidney cyst followups documented in this encounter Plan of Treatment Upcoming Encounters Date Type Department Care Team (Late st Contact Info) Description 01/05/2025 8:00 AM EDT Office Visit [facility] Medicine Specialties [address] [place] [address] Jenny Alberto MD [address] [place] [address] 01/15/2025 10:10 AM EST Office Visit [facility]ties [address] [place] [address] Myles Dyer MD [address] [place] [address] documented as of this encounter [...] documented as of this encounter Care Teams Legal Stenographer Relationship Specialty Start Date End Date Luis Lawson MD [address] [place] [id number] PCP - General 02/25/24 documented as of this encounter
--- OUTSIDE RECORDS SUMMARY | 2024-08-29 07:22 | XMS_ITS | Encounter Summary ---
Author Organization Healthcare Address [address] [place] [address] Care Team Providers Care Test Examiner Name Role Phone Luis Lawson MD Primary Care Provider Encounter Details Date Type Department Care Team (Late st Contact Info) Description 07/16/2024 Results Follow-Up [facility] [address] [facility] [address] [place] [address] Jenny Alberto MD [address] [facility] [address] [place] [address] Social History Tobacco Use Types Packs/Day [...] Encounter Note - Jenny Alberto MD - 07/16/2024 7:30 AM EDT Labs are normal off medications (pt discontinued due to nausea for 2 weeks)-- advised pt to resume azathioprine at 25mg/d and repeat labs in 2 weeks documented in this encounter Plan of Treatment Upcoming Encounters Date Type Department Care Team (Late st Contact Info) Description 01/05/2025 8:00 AM EDT Office Visit [facility] Medicine Specialties [address] [place] [address] Jenny Alberto MD [address] [place] [address] 01/15/2025 10:10 AM EST Office Visit [facility] Medicine Specialties [address], [address] [place] [address] Myles Dyer MD [address] [place] [address] documented as of this encounter [...] documented as of this encounter Care Teams Test Examiner Relationship Specialty Start Date End Date Luis Lawson MD [address] [place] [id number] PCP - General 02/25/24 documented as of this encounter
--- OUTSIDE RECORDS SUMMARY | 2024-08-29 07:22 | XMS_ITS | Encounter Summary ---
Author Organization [facility] Address [address] [place] [address] Care Team Providers Care Train Control Electronic Technician Name Role Phone Luis Lawson MD Primary Care Provider [phone] Encounter Details Date Type Department Care Team (Late st Contact Info) Description 07/25/2024 Orders Only [facility] Medicine Specialties [address] [facility] [place] [address] Jenny Alberto MD [address] [place] [phone] Social History Tobacco Use Types Packs/Day [...] Description 01/05/2025 8:00 AM EDT Office Visit [facility] Medicine Specialties [address] [facility], [address] [place] [address] Jenny Alberto MD [address] [place] [address] [place] [phone] 01/15/2025 10:10 AM EST Office Visit [facility] Special[facility] [address] [place] [address] Myles Dyer MD [address] [place] [address] documented as of this encounter Procedures Procedure Name Priority Date/Time Associated Diagnosis Comments COMPLETE METABOLIC PROFILE (CMP) Routine 07/25/2024 4:15 PM EDT documented in this encounter Results * COMPLETE METABOLIC PROFILE (CMP) (07/25/2024 4:15 PM EDT) us Jenny Alberto MD LAB BLOOD ORDERABLES [...] documented as of this encounter Care Teams Train Control Electronic Technician Relationship Specialty Start Date End Date Luis Lawson MD [address] [place] [id number] PCP - General 02/25/24 documented as of this encounter
--- OUTSIDE RECORDS SUMMARY | 2024-08-29 07:22 | XMS_ITS | Encounter Summary ---
Author Organization [facility] Address [address] [place] [address] Care Team Providers Care Lead Technologist In Cytogenetics Name Role Phone Luis Lawson MD Primary Care Provider [phone] Encounter Details Date Type Department Care Team (Late st Contact Info) Description 07/28/2024 Orders Only [facility] Medicine Specialties [address] [facility], [address]nd [place] [address] Jenny Alberto MD [address] [place] [phone] Social History Tobacco Use Types Packs/Day [...] Description 01/05/2025 8:00 AM EDT Office Visit [facility] Medicine Specialties [address] [facility], 2nd [place] [address] Jenny Alberto MD [address] [place] [address] [place] [phone] 01/15/2025 10:10 AM EST Office Visit [facility] Medicine Specialties [address] [place] [address] Myles Dyer MD [address] [place] [address] documented as of this encounter Procedures Procedure Name Priority Date/Time Associated Diagnosis Comments CBC W/DIFF Routine 07/25/2024 7:28 AM EDT documented in this encounter Results * CBC W/DIFF (07/25/2024 7:28 AM EDT) us Jenny Alberto MD LAB BLOOD [...] documented as of this encounter Care Teams Lead Technologist In Cytogenetics Relationship Specialty Start Date End Date Luis Lawson MD [address] [place] [id number] PCP - General 02/25/24 documented as of this encounter
--- OUTSIDE RECORDS SUMMARY | 2024-08-29 07:22 | XMS_ITS | Clinical Summary ---
Author Organization [facility] Address [address] [place] [address] Care Team Providers Care Reproduction Order Processor Name Role Phone Luis Lawson MD Primary Care Provider [phone] Allergies No known active allergies Medications amLODIPine (Norvasc) 5 MG tablet Take 1 tablet (5 mg) by mouth 1 (one) time each day. 4 Active tamsulosin (Flomax) 0.4 MG 24 hr capsule Take 1 capsule (0.4 mg) by mouth 1 (one) time. 4 Active Multiple Vitamin (multivitamin) tablet Take 1 tablet by mouth 1 (one) time each day. Active atorvastatin (Lipitor) 10 MG tablet Take 1 tablet (10 mg) by mouth 1 (one) time each day. 4 Active ranolazine (Ranexa) 500 MG 12 hr tablet Take 1 tablet (500 mg) by mouth 2 (two) times a day. Do not crush, chew, or split. Active ASPIRIN 81 MG chewable tablet Chew 1 tablet (81 mg) 1 (one) time each day. Active carvedilol (Coreg) 12.5 MG tablet 5 Active predniSONE (Deltasone) 20 MG tablet 1 tablet (20 mg) 1 (one) time each day. 5 Active ondansetron (Zofran) 4 MG tabletIndication s:Nausea and vomiting, unspecified vomiting type,Autoimmune hepatitis (CMS/HCC) Take 1 tablet (4 mg) by mouth every 8 hours as needed for nausea or vomiting. 20 tablet 3 5 Active nutritional drink (Boost Plus) liquid liquid Drink 1 supplement up to 3 times a day or As Directed as a nutritional supplement. Flavor preference: per patient. 1 case today. Can dispense up to 4 cases at a time per patient request in the future 237 mL 11 5 Active azaTHIOprine (Imuran) 50 MG tabletIndication s:Autoimmune hepatitis (CMS/HCC) Take 1 tab in am and 1/2 (Half) in pm 135 tablet 1 5 Active levothyroxine (Synthroid, Levoxyl) 50 MCG tablet 5 Active Active Problems Problem Noted Date Diagnosed Date Anxiety 02/25/2024 Dyspnea 02/25/2024 Essential hypertension 02/25/2024 HHD (hypertensive heart disease) 02/25/2024 Chest pain 02/25/2024 CAD (coronary artery disease) 02/25/2024 Mixed hyperlipidemia 02/25/2024 Autoimmune hepatitis 02/06/2024 Constipation 09/13/2022 Encounters Date Type Department Care Team Description 07/30/2024 Telephone [facility] Medicine [facility]ties [address] [place] [address] Lori Levi RN 07/30/2024 Orders Only [facility] [address], [address] [place] [address] Jenny Alberto MD 07/28/2024 Results Follow-Up [facility] [address], [address] [place] [address] Jenny Alberto MD 07/28/2024 Orders Only [facility] [address] [place] [address] Jenny Alberto MD 07/25/2024 Orders Only [facility] [address] [place] [address] Jenny Alberto MD 07/16/2024 Results Follow-Up [facility] [address] [place] [address] Jenny Alberto MD 07/14/2024 9:00 AM EDT Office Visit [facility] [address] [place] [phone] Jenny Alberto MD Autoimmune hepatitis (CMS/HCC) (Primary Dx); Nausea; Other specified hypothyroidism; Encounter for retirement current use of azathioprine; On prednisone therapy 07/14/2024 6:34 AM EDT - 07/14/2024 11:59 PM EDT Hospital Encounter [facility] [address] [place] [address] Other cirrhosis of liver (CMS/HCC) Discharge Disposition: Home or Self Care 07/14/2024 Telephone [facility] [address] [place] [phone] Lori Levi RN 07/14/2024 Travel 07/02/2024 Results Follow-Up [facility] [address] [place] [phone] Suman Ansari MD 06/30/2024 Orders Only [facility] [address] [place] [phone] Jenny Alberto MD 05/30/2024 9:10 AM EDT Office Visit [facility] [address] [place] [address] Myles Dyer MD Systemic lupus erythematosus (SLE) in adult (CMS/HCC) (Primary Dx); Autoimmune hepatitis (CMS/HCC); High risk medication use; Positive double stranded DNA antibody test 05/30/2024 Telephone [facility] [address] [place] [phone] Rebeka Hoskins 05/30/2024 Results Follow-Up [facility] [address] [place] [address] Jenny Alberto MD 05/30/2024 Travel 05/30/2024 Orders Only [facility] [address] [place] [address] Jenny Alberto MD from Last 3 Months Immunizations Immunization Administration Dates Next Due HepB-CpG 04/21/2024,02/25/2024 Influenza, Unspecified 02/05/2007 Influenza, high-dose, quadrivalent 01/03/2023 TD (adult), 2 Lf tetanus tox oid, preservative free, adsorbed 05/14/1996 Family History Medical History Relation Name Comments Cirrhosis Brother Liver disease Other Relation Name Status Comments Brother Other Social History Tobacco Use Types Packs/Day Years Used Date Smoking Tobacco: Never Passive Smoke Exposure: Never Smokeless Tobacco: Never Tobacco Cessation:Counseling Given: Not Answered Alcohol Use Standard Drinks/Week Comments Never 0 [...] on file Sexual Orientation Not on file Last Filed Vital Signs Vital Sign Reading Time Taken Comments Blood Pressure 155/96 07/14/2024 8:30 AM EDT provider made aware Pulse 99 07/14/2024 8:30 AM EDT Temperature 36.7 C (98 F) 07/14/2024 8:30 AM EDT Respiratory Rate 16 05/30/2024 8:36 AM EDT Oxygen Saturation 97% 07/14/2024 8:3 0 AM EDT Inhaled Oxygen Concentration - - Weight 75.9 kg (167 lb 5.3 oz) 07/14/2024 8:30 AM EDT Height 175.3 cm (5' 9 ) 07/14/2024 8:30 AM EDT Body Mass Index 24.71 07/14/2024 8:30 AM EDT Plan of Treatment Upcoming Encounters Date Type Department Care Team (Late st Contact Info) Description 01/05/2025 8:00 AM EDT Office Visit [facility] [address] [place] [address] Jenny Alberto MD [address] [place] [address] 01/15/2025 10:10 AM EST Office Visit [place] [facility] [address], [address] [place] [address] Myles Dyer MD [address] [place] [address] Health Maintenance Due Date Last Done Comments [facility]-Medicare Annual Wellness (AWV) 1950 [facility]-/Child/Adol SDOH Screenings 1950 [facility]- SDOH Screenings 1966 [facility]-Adult SDOH Screenings 1966 [facility]-Hepatitis A Vaccines (1 of 2 - Risk 2-dose series) 10/11/1967 [facility]-Pneumococcal Vaccine: 50+ Years (1 of 2 - PCV) 10/11/1967 [facility]-Zoster Vaccines (1 of 2) 10/11/1967 CT Colonography 1993 Colonoscopy 1993 FIT-DNA 1993 FIT 1993 FOBT 1993 Sigmoidoscopy 1993 [facility]-Colorectal Cancer Screening 1993 [facility]-DTaP,Tdap,and Td Vaccines (1 - Tdap) 05/15/1996 05/14/1996 [facility]-RSV Vaccine: 60+ Years or (1 - 1-dose 75+ series) 10/11/2023 [id number] Vaccine (7 - Moderna risk 2023- season) 2024 01/03/2024, 12/28/2022, 12/28/2021, Additional history exists [facility]-Influenza Vaccine (Season Ended) 2024 01/03/2023, 02/05/2007 [facility]-Depression Screening 05/30/2025 05/30/2024, 05/11 [facility]-Hepatitis C Screening Completed 01/21/2024 HPV Vaccines Aged Out No longer eligi ble based on patient's age to complete this topic [facility]-HIB Vaccines Aged Out No longer e ligible based on patient's age to complete this topic [facility]-IPV Vaccines Aged Out No longer e ligible based on patient's age to complete this topic [facility]-Rotavirus Vaccines Aged Out No lo nger eligible based on patient's age to complete this topic Procedures Procedure Name Priority Date/Time Associated Diagnosis Comments COMPLETE METABOLIC PROFILE (CMP) Routine 07/25/2024 4:15 PM EDT IGG, PLASMA Routine 07/25/2024 2:43 PM EDT CBC W/DIFF Routine 07/25/2024 7:28 AM EDT C3 COMPLEMENT Routine 07/14/2024 10:01 AM EDT Systemic lupus erythematosus (SLE) in adult ([facility]) C4 COMPLEMENT Routine 07/14/2024 10:01 AM EDT Systemic lupus erythematosus (SLE) in adult [place] BETA-2 GLYCOPROTEIN 1 ANTIBODY, IGA (SO) Routine 07/14/2024 10:01 AM EDT Systemic lupus erythematosus (SLE) in adult ([facility] ANTI-BETA 2 GLYCOPROTEIN, IGG AND IGM Routine 07/14/2024 10:01 AM EDT Systemic lupus erythematosus (SLE) in adult ([facility] CARDIOLIPIN ANTIBODY, IGA (SO) Routine 07/14/2024 10:01 AM EDT Systemic lupus erythematosus (SLE) in adult ([facility] ANTICARDIOLIPIN Routine 07/14/2024 10:01 AM EDT Systemic lupus erythematosus (SLE) in adult ([facility]) LUPUS ANTICOAGULANT PROFILE Routine 07/14/2024 10:01 AM EDT Systemic lupus erythematosus (SLE) in adult ([facility]) RPR WITH REFLEX TO TITER Routine 07/14/2024 10:01 AM EDT Systemic lupus erythematosus (SLE) in adult ([facility]) SEDIMENTATION RATE, AUTOMATED Routine 07/14/2024 10:01 AM EDT Systemic lupus erythematosus (SLE) in adult (CMS/HCC) C-REACTIVE PROTEIN, PLASMA Routine 07/14/2024 10:01 AM EDT Systemic lupus erythematosus (SLE) in adult (CMS/HCC) DOUBLE-STRANDED DNA (DSDNA) ANTIBODY, IGG BY IFA (SO) Routine 07/14/2024 10:01 AM EDT Systemic lupus erythematosus (SLE) in adult (CMS/HCC) THIOPURINE METABOLITES (SO) Routine 07/14/2024 10:01 AM EDT Systemic lupus erythematosus (SLE) in adult (CMS/HCC) COMPREHENSIVE METABOLIC PANEL, PLASMA Routine 07/14/2024 10:01 AM EDT Autoimmune hepatitis (CMS/HCC) IGG, PLASMA Routine 07/14/2024 10:01 AM EDT Autoimmune hepatitis (CMS/HCC) TSH REFLEX FT4 Routine 07/14/2024 10:01 AM EDT Other specified hypothyroidism US LIVER SCREEN Routine 07/14/2024 6:54 AM EDT Other cirrhosis of liver (CMS/HCC) COMPLETE METABOLIC PROFILE (CMP) Routine 06/30/2024 3:28 PM EDT CBC W/DIFF Routine 06/30/2024 3:28 PM EDT URINALYSIS MICROSCOPIC FOR UA REFLEX Routine 05/30/2024 10:12 AM EDT Systemic lupus erythematosus, organ or system involvement unspecified (CMS/HCC) PROTEIN, URINE, RANDOM WITH CREATININE Routine 05/30/2024 10:12 AM EDT Systemic lupus erythematosus, organ or system involvement unspecified (CMS/HCC) URINALYSIS WITH REFLEX MICROSCOPIC Routine 05/30/2024 10:12 AM EDT Systemic lupus erythematosus, organ or system involvement unspecified (CMS/HCC) COMPLETE METABOLIC PROFILE (CMP) Routine 05/29/2024 6:52 AM EDT HEPATITIS C ANTIBODY W/REFLEX TO HCV QUANT PCR Routine 01/21/2024 12:22 PM EST Unspecified cirrhosis of liver (CMS/HCC) from Last 3 Months or Most Recently Relevant to Health Maintenance Results * COMPLETE METABOLIC PROFILE (CMP) (07/25/2024 4:15 PM EDT) Only the most recent of3 resultswithin the time period is included. Jenny Alberto MD LAB BLOOD ORDERABLES Final Result * IgG, Plasma (07/25/2024 2:43 PM EDT) Only the most recent of2 resultswithin the time period is included. Blood Venous blood specimen / Unknown Jenny Alberto MD LAB BLOOD ORDERABLES Final Result * CBC W/DIFF (07/25/2024 7:28 AM EDT) Only the most recent of2 resultswithin the time period is included. Result [facility] Jenny Alberto MD LAB BLOOD ORDERABLES Final Result * RPR With Reflex to Titer (07/14/2024 10:01 AM EDT) Pathologist [facility] Rapid Plasma Reagin Nonreactive Non Reactive 07/15/2024 12:40 AM EDT [facility] Blood Venous blood specimen / Unknown Venipuncture / Unknown 07/14/2024 10:01 AM EDT 07/14/2024 10:01 AM EDT Fabby Paige MD LAB BLOOD ORDERABLES Fi nal Result [facility] [address] [place] [address] * Anti-Beta 2 Glycoprotein, IgG and IgM (07/14/2024 10:01 AM EDT) Pathologist [facility] Anti-Beta 2 Glycoprotein 1, IgG <1.4 <20.0 U/mL 07/14/2024 2:12 PM EDT [facility] Anti-Beta 2 Glycoprotein IgG Interpretation Negative Negative 07/14/2024 2:12 PM EDT [facility] Anti-Beta 2 Glycoprotein 1, IgM 12.4 <20.0 U/mL 07/14/2024 2:12 PM EDT [facility] Anti-Beta 2 Glycoprotein IgM Interpretation Negative Negative 07/14/2024 2:12 PM EDT [facility] Blood Venous blood specimen / Unknown Venipuncture / Unknown 07/14/2024 10:01 AM EDT 07/14/2024 10:01 AM EDT Fabby Paige MD LAB BLOOD ORDERABLES Fi nal Result Performing Organization Address City/[facility]/ZIP Co de Phone Number [facility] [address] [place] [address] * TSH Reflex FT4 (07/14/2024 10:01 AM EDT) Thyroid Stimulating Hormone, Plasma 2.24 0.40 - 4.20 uIU/mL 07/14/2024 11:20 AM EDT [facility] Blood Venous blood specimen / Unknown Venipuncture / Unknown 07/14/2024 10:01 AM EDT 07/14/2024 10:01 AM EDT Jenny Alberto MD LAB BLOOD ORDERABLES Final Result [facility] [address] [place] [address] * Beta-2 Glycoprotein 1 Antibody, IgA (SO) (07/14/2024 10:01 AM EDT) [id number] 1, IgA Antibody <10 <=20 BISI 07/16/2024 3:02 AM EDT [facility] ([place]) Serum 07/14/2024 10:0 1 AM EDT 07/14/2024 10:01 AM EDT Narrative [facility] ([place]) - 07/16/2024 3:02 AM EDT Performed By: [facility] [address] [place] [address] Director [employer]: Jos Thompson MD, PhD CLIA Number: [id number] Fabby Paige MD LAB BLOOD ORDERABLES Fi nal Result Performing Organization Address City/[facility]/ZIP Co de Phone Number [facility]) [address] [place] [address] * Thiopurine Metabolites (07/14/2024 10:01 AM EDT) THIOPURINE METABOLITES 07/18/2024 10:33 AM EDT [facility]) 6 TGN <4 230 - 400 pmole/8X 10E8 RBC 07/18/2024 10:33 AM EDT [facility] ([place]) 6 TGN Results Assessment:CHANELL G Not Quantifiable. Lower Likelihood of Response 07/18/2024 10:33 AM EDT [facility] ([place]) 6 MMPN <274 <5700 pmole/8X 10E8 RBC 07/18/2024 10:33 AM EDT [facility]) 6 MMPN Results Assessment: Not Quantifiable. Lower Risk of Hepatotoxicity 07/18/2024 10:33 AM EDT [facility]) Blood Venous blood specimen / Unknown Venipuncture / Unknown 07/14/2024 10:01 AM EDT 07/14/2024 10:01 AM EDT Narrative [facility] ([place]) - 07/18/2024 10:33 AM EDT Test performed at [facility], [place], [place]. Fabby Paige MD LAB BLOOD ORDERABLES Fi nal Result [facility]) [address] [facility] [place] [address] * Anticardiolipin IgG and IgM (07/14/2024 10:01 AM EDT) IgG Anticardiolipin <1.60 <20.00 GPL Units/mL 07/14/2024 2:12 PM EDT [facility] Anticardiolipin IgG Interpretation Negative Negative 07/14/2024 2:12 PM EDT [facility] IgM Anticardiolipin 11.50 <20.00 MPL Units/mL 07/14/2024 2:12 PM EDT [facility] Anticardiolipin IgM Interpretation Negative Negative 07/14/2024 2:12 PM EDT [facility] Blood Venous blood specimen / Unknown Venipuncture / Unknown 07/14/2024 10:01 AM EDT 07/14/2024 10:01 AM EDT Fabby Paige MD LAB BLOOD ORDERABLES Fi nal Result [facility] [address] [place] [address] * (ABNORMAL) Anti-DNA antibody, double-stranded (07/14/2024 10:01 AM EDT) Double-Strande d DNA (dsDNA) Ab IgG IFA 1:640(H) <1:10 07/17/2024 3:12 PM EDT [facility] ([place]) Blood Venous blood specimen / Unknown Venipuncture / Unknown 07/14/2024 10:01 AM EDT 07/14/2024 10:01 AM EDT Narrative [facility] ([place]) - 07/17/2024 3:12 PM EDT INTERPRETIVE INFORMATION: Double-Stranded DNA (dsDNA) Antibody, IgG by IFA (using Crithidia luciliae) Positivity for anti-double stranded DNA (anti-dsDNA) IgG antibody is a diagnostic criterion of systemic lupus erythematosus (SLE). The presence of the anti-dsDNA IgG antibody is identified by IFA titer (Crithidia luciliae indirect fluorescent test [REGINE]). REGINE is highly specific for SLE with a sensitivity of 50-60 percent. Some patients with early or inactive SLE may be positive for anti-dsDNA IgG by NATALIA but negative by REGINE. If the REGINE result is negative but the patient has a positive NATALIA and clinical suspicion remains, consider antinuclear antibody (GONZALO) testing by IFA. Additional information and recommendations for testing may be found at [email or web address]. Performed By: [facility] [address] [place] [address] Director [employer]: Jos Thompson MD, PhD CLIA Number: [id number] Fabby Paige MD LAB BLOOD ORDERABLES Fi nal Result Performing Organization Address [facility] Co de Phone Number [facility] [address] [place] [address] * Cardiolipin antibody, IgA (SO) (07/14/2024 10:01 AM EDT) Pathologist [facility] Cardiolipin Antibody IgA <10 <=11 APL 07/16/2024 5:53 PM EDT [facility] ([facility]) Blood Venous blood specimen / Unknown Venipuncture / Unknown 07/14/2024 10:01 AM EDT 07/14/2024 10:01 AM EDT Narrative [facility] ([facility]) - 07/16/2024 5:53 PM EDT INTERPRETIVE INFORMATION: Cardiolipin Antibodies, IgA <=11 APL: Negative 12-19 APL: Indeterminate 20-80 APL: Low to Moderately Positive 81 APL or above: High Positive Performed By: [facility] [address] [place] [address] Director [employer]: Jos Thompson MD, PhD CLIA Number: [id number] Fabby Paige MD LAB BLOOD ORDERABLES Fi nal Result Performing Organization Address [facility] Co de Phone Number [facility] ([facility]) [address] [place] [address] * Lupus Anticoagulant Profile (07/14/2024 10:01 AM EDT) Pathologist [facility] Lupus Anticoagulant Result Lupus anticoagulant (LA) not detected by either LA-sensitive aPTT or dRVVT assays. If clinical suspicion for antiphospholipid syndrome is high, consider testing for antibodies against cardiolipin and [id number] n I. 07/15/2024 10:39 AM EDT [facility] aPTT Lupus Anticoagulant Sensitive 34.7 <=41.0 sec LAB COAGULATION METHOD 07/15/2024 10:39 AM EDT [facility] DRVVT Screen 35.4 sec LAB COAGULATION METHOD 07/15/2024 10:39 AM EDT [facility] DRVVT Screen Ratio 0.89 <1.20 LAB COAGULATION METHOD 07/15/2024 10:39 AM EDT [facility] Blood Venous blood specimen / Unknown Venipuncture / Unknown 07/14/2024 10:01 AM EDT 07/14/2024 10:01 AM EDT Fabby Paige MD LAB BLOOD ORDERABLES Fi nal Result Performing Organization Address City/[facility]/ZIP Co de Phone Number [facility] [address] [place] [address] * Sedimentation Rate, Automated (07/14/2024 10:01 AM EDT) Sedimentation Rate 17 <20 mm/hr 2024 11:00 AM EDT [facility] Blood Venous blood specimen / Unknown Venipuncture / Unknown 07/14/2024 10:01 AM EDT 07/14/2024 10:01 AM EDT us Fabby Paige MD LAB BLOOD ORDERABLES Fi nal Result Performing Organization Address City/[facility]/ZIP Co de Phone Number [facility] [address] [place] [address] * C3 complement (07/14/2024 10:01 AM EDT) C3 Complement 99 84 - 166 mg/dL 07/14/2024 12:57 PM EDT [facility] Blood Venous blood specimen / Unknown Venipuncture / Unknown 07/14/2024 10:01 AM EDT 07/14/2024 10:01 AM EDT Fabby Paige MD LAB BLOOD ORDERABLES Fi nal Result [facility] [address] [place] [address] * C4 complement (07/14/2024 10:01 AM EDT) C4 Complement 13 13 - 36 mg/dL 07/14/2024 12:57 PM EDT [facility] Blood Venous blood specimen / Unknown Venipuncture / Unknown 07/14/2024 10:01 AM EDT 07/14/2024 10:01 AM EDT Fabby Paige MD LAB BLOOD ORDERABLES Fi nal Result Performing Organization Address City/[facility]/ZIP Co de Phone Number [facility] [address] [place] [address] * C-reactive protein (07/14/2024 10:01 AM EDT) CRP, Plasma <3.0 <=8.0 mg/L 07/14/2024 11:20 AM EDT [facility] Blood Venous blood specimen / Unknown Venipuncture / Unknown 07/14/2024 10:01 AM EDT 07/14/2024 10:01 AM EDT Narrative [facility] - 07/14/2024 11:20 AM EDT This CRP test is appropriate for assessment of infection, systemic inflammation and/or tissue injury. To assess cardiovascular disease risk order high sensitivity CRP (CRPH). Fabby Paige MD LAB BLOOD ORDERABLES Fi nal Result [facility] [address] [place] [address] * (ABNORMAL) Comprehensive metabolic panel (07/14/2024 10:01 AM EDT) Glucose, Plasma 102(H) 74 - 99 mg/dL 07/14/2024 11:20 AM EDT [facility] BUN, Plasma 16 8 - 23 mg/dL 07/14/2024 11:20 AM EDT [facility] Creatinine, Plasma 0.81 0.70 - 1.20 mg/dL 07/14/2024 11:20 AM EDT [facility] BUN/Creatinine Ratio 07/14/2024 11:20 AM EDT [facility] Sodium, Plasma 142 136 - 145 mmol/L 07/14/2024 11:20 AM EDT [facility] Potassium, Plasma 4.0 3.6 - 4.9 mmol/L 07/14/2024 11:20 AM EDT [facility] Chloride, Plasma 106 97 - 107 mmol/L 07/14/2024 11:20 AM EDT [facility] CO2, Plasma 25 22 - 29 mmol/L 07/14/2024 11:20 AM EDT [facility] Anion Gap 11 6 - 16 mmol/L 07/14/2024 11:20 AM EDT [facility] Total Calcium, Plasma 9.6 8.9 - 10.2 mg/dL 07/14/2024 11:20 AM EDT [facility] Total Protein 7.1 6.3 - 7.9 g/dL 07/14/2024 11:20 AM EDT [facility] Albumin, Plasma 4.1 3.5 - 5.2 g/dL 07/14/2024 11:20 AM EDT [facility] AST, Plasma 30 10 - 50 U/L 07/14/2024 11:20 AM EDT [facility] ALT, Plasma 36 10 - 50 U/L 07/14/2024 11:20 AM EDT [facility] Alkaline Phosphatase, Plasma 79 40 - 115 U/L 07/14/2024 11:20 AM EDT [facility] Total Bilirubin, Plasma 0.6 0.2 - 1.1 mg/dL 07/14/2024 11:20 AM EDT [facility] eGFRcr 91.9 mL/min/1.7 3m*2 07/14/2024 11:20 AM EDT [facility] Comment:Reported eGFRcr in m L/min/1.73m2 is based the CKD-EPI 2020 equation that does not use a race coefficient. Blood Venous blood specimen / Unknown Venipuncture / Unknown 07/14/2024 10:01 AM EDT 07/14/2024 10:01 AM EDT us Jenny Alberto MD LAB BLOOD ORDERABLES Final Result [facility] [address] [place] [address] * US Liver Screen (07/14/2024 6:54 AM [...] are based on Ultrasound LI-RADS version 2017. [email or web address] CRITICAL RESULT: No. COMMUNICATION: Per [...] cm (cine series A17). Procedure Note America Rodney DO - 07/17/2024 CLINICAL INDICATION: HCC screening TECHNIQUE: [...] recommendations are based on UltrasoundLI-RADS version 2017. [email or web address] CRITICAL RESULT: No. COMMUNICATION: Per this written report. By electronically signing this report, I, the attending physician, attestthat I have personally reviewed the images/data for the aboveexamination(s) and agree with the final edited report. Drafted by João Salinas DO on 07/17/2024 8:24 AM Final report signed by America Rodney DO on 07/17/2024 10:52 AM us Jenny Alberto MD IMG US PROCEDURES Final Re sult * Urinalysis Microscopic Examination (05/30/2024 10:12 AM EDT) Urine Urine specimen obtained by clean catch procedure / Unknown Non-blood Collection / Unknown 05/30/2024 10:12 AM EDT 05/30/2024 10:12 AM EDT Fabby Paige MD LAB URINE ORDERABLES Fi nal Result Performing Organization Address City/[facility]/ZIP Co de Phone Number [facility] [address] [place] [address] * Protein, Random, Urine with Creatinine (05/30/2024 10:12 AM EDT) Protein, Urine 14 mg/dL 05/30/2024 11:43 AM EDT [facility] LAB Creatinine, Urine 130 mg/dL 05/30/2024 11:43 AM EDT [facility] Protein/Creatin ine Ratio 0.1 mg/mg Creat 05/30/2024 11:43 AM EDT [facility] Urine Urine specimen obtained by clean catch procedure / Unknown Non-blood Collection / Unknown 05/30/2024 10:12 AM EDT 05/30/2024 10:12 AM EDT Fabby Paige MD LAB URINE ORDERABLES Fi nal Result Performing Organization Address [facility] Co de Phone Number [facility] [address] [place] [address] * (ABNORMAL) Urinalysis with reflex microscopic (Culture NOT Included) (05/30/2024 10:12 AM EDT) Color, Urine Dark Yellow LAB URINALYSIS - AUTOMATED METHOD 05/30/2024 11:26 AM EDT [facility] Clarity, Urine Clear LAB URINALYSIS - AUTOMATED METHOD 05/30/2024 11:26 AM EDT [facility] Spec [place], Urine 1.017 1.005 - 1.030 LAB URINALYSIS - AUTOMATED METHOD 05/30/2024 11:26 AM EDT [facility] pH, Urine 6.5 5.0 - 8.0 LAB URINALYSIS - AUTOMATED METHOD 05/30/2024 11:26 AM EDT [facility] Protein, Urine Trace(A) Negative mg/dL LAB URINALYSIS - AUTOMATED METHOD 05/30/2024 11:26 AM T [facility] Glucose, Urine Negative Negative mg/dL LAB URINALYSIS - AUTOMATED METHOD 05/30/2024 11:26 AM [facility] Ketones, Urine Trace(A) Negative mg/dL LAB URINALYSIS - AUTOMATED METHOD 05/30/2024 11:26 AM T [facility] Blood, Urine Negative Negative LAB URINALYSIS - AUTOMATED METHOD 05/30/2024 11:26 AM T [facility] Bilirubin, Urine Negative Negative LAB URINALYSIS - AUTOMATED METHOD 05/30/2024 11:26 AM T [facility] Urobilinogen, Urine 1.0 0.2 to 1.0 mg/dL LAB URINALYSIS - AUTOMATED METHOD 05/30/2024 11:26 AM [facility] Leukocytes, Urine Moderate(A) Negative LAB URINALYSIS - AUTOMATED METHOD 05/30/2024 11:26 AM T [facility] Nitrite, Urine Positive(A) Negative LAB URINALYSIS - AUTOMATED METHOD 05/30/2024 11:26 AM T [facility] RBC, Urine 1 0 to 3 /HPF LAB URINALYSIS - AUTOMATED METHOD 05/30/2024 11:26 AM T [facility] WBC, Urine 21 - 50(A) 0 to 5 /HPF LAB URINALYSIS - AUTOMATED METHOD 05/30/2024 11:26 AM [facility] Squamous Epithelial Cells 0 - 2 0 to 5 /HPF LAB URINALYSIS - AUTOMATED METHOD 05/30/2024 11:26 AM T [facility] Hyaline Casts 0 - 2 0 to 5 /LPF LAB URINALYSIS - AUTOMATED METHOD 05/30/2024 11:26 AM [facility] Bacteria, Urine Present Negative LAB URINALYSIS - AUTOMATED METHOD 05/30/2024 11:26 AM [facility] Urine Urine specimen obtained by clean catch procedure / Unknown Non-blood Collection / Unknown 05/30/2024 10:12 AM EDT 05/30/2024 10:12 AM EDT us Fabby Paige MD LAB URINE ORDERABLES Fi nal Result [facility] [address] [place] [address] * Hepatitis C antibody (01/21/2024 12:22 PM EST) Hepatitis C Antibody Negative Negative 01/21/2024 3:15 PM EST [facility] Blood Venous blood specimen / Unknown Venipuncture / Unknown 01/21/2024 12:22 PM EST 01/21/2024 12:23 PM EST Jenny Alberto MD LAB BLOOD ORDERABLES Final Result [facility] [address] [place] [address] from Last 3 Months or Most Recently Relevant to Health Maintenance Insurance [facility] MEDICARE Care Teams Reproduction Order Processor Relationship Specialty Start Date End Date Luis Lawson MD [address] [place] [address] PCP - General 02/25/24
--- OUTSIDE RECORDS SUMMARY | 2024-08-29 07:22 | XMS_ITS | Encounter Summary ---
Author Organization [facility] Address [address] [place] [address] Care Team Providers Care Rolling Attendant Name Role Phone Luis Lawson MD Primary Care Provider Encounter Details Date Type Department Care Team (Late st Contact Info) Description 06/30/2024 Orders Only [facility] Medicine Specialties [address] [facility] [place] [address] Jenny Alberto MD [address] [place] [address] Social History Tobacco Use Types Packs/Day [...] Description 01/05/2025 8:00 AM EDT Office Visit [facility] Medicine Specialties [address] [facility], [address]nd [place] [address] Jenny Alberto MD [address] [place] [address] [place] [address] 01/15/2025 10:10 AM EST Office Visit [facility] Medicine Specialties [address], [address] [place] [address] Myles Dyer MD [address] [place] [address] documented as of this encounter Procedures Procedure Name Priority Date/Time Associated Diagnosis Comments COMPLETE METABOLIC PROFILE (CMP) Routine 06/30/2024 3:28 PM EDT CBC W/DIFF Routine 06/30/2024 3:28 PM EDT documented in this encounter Results * COMPLETE METABOLIC PROFILE (CMP) (06/30/2024 3:28 PM EDT) Jenny Alberto MD LAB BLOOD ORDERABLES Final Result * CBC W/DIFF (06/30/2024 3:28 PM EDT) us Jenny Alberto MD LAB BLOOD ORDERABLES Final Result documented in this encounter Visit Diagnoses Not on filedocumented in this encounter Additional Health Concerns Assessment Noted Time PHQ-9 Depression Total Score: 0 05/31/19 25 8:43 AM EDT A fall risk assessment has been complete d for the patient 05/30/2024 8:43 AM EDT A Body Mass Index follow-up plan has been documented for the patient 05/30/2024 9:59 AM EDT documented as of this encounter Care Teams Rolling Attendant Relationship Specialty Start Date End Date Luis Lawson MD [address] [place] [address] [address] [place] [address] PCP - General 02/25/24 documented as of this encounter
--- OUTSIDE RECORDS SUMMARY | 2024-08-29 07:22 | XMS_ITS | Encounter Summary ---
Author Organization Healthcare Address [address] [place] [address] Care Team Providers Care Bleacher [employer] Name Role Phone Luis Lawson MD Primary Care Provider [phone] Reason for Referral * Imaging (Routine) - Authorized Specialty Diagnoses / Procedures Referred By Contac t Referred To Contact Radiology Diagnoses Renal cyst Procedures US Renal Complete Jenny Alberto MD [id number] [place] [address] Phone: tel: fax: Referral ID Status Reason Start Date Expiration Date V isits Requested Visits Authorized [id number] Authorized 07/17/2024 01/16/2026 1 1 Encounter Details Date Type Department Care Team (Late st Contact Info) Description 05/27/2024 Results Follow-Up [facility] [address] [place] [address] Jenny Alberto MD [address] [place] [address] Social History Tobacco Use Types [...] on file documented as of this encounter Functional Status * Over the past 2 weeks, how often have you been bothered by any of the following problems? Question Answer Date of Assessment Author Little interest or pleasure in doing things Not at all 05/30/2024 8:43 AM EDT Patrica Moncada Feeling down, depressed, or hopeless Not at all 05/30/2024 8:43 AM EDT Patrica Moncada Patient Health Questionnaire -2 Score 0 05/30/2024 8:43 AM EDT Patrica Moncada * Question Answer Date of Assessment Author Trouble falling or staying a sleep, or sleeping too much Not at all 05/30/2024 8:43 AM EDT Patrica Moncada Feeling tired or having edyta le energy Not at all 05/30/2024 8:43 AM EDT Patrica Moncada Poor appetite or overeating Not at all 05/30/2024 8: 43 AM EDT Patrica Moncada Feeling bad about yourself - or that you are a failure or have let yourself or your family down Not at all 05/30/2024 8:43 AM EDPatrica Ledezma Trouble concentrating on thi ngs, such as reading the newspaper or watching television Not at all 05/30/2024 8:43 AM EDT Patrica Moncada Moving or speaking so slowly that other people could have noticed? Or the opposite - being so fidgety or restless that you have been moving around a lot more than usual. Not at all 05/30/2024 8:43 AM EDT Patrica Guido Thoughts that you would be b meredith off or hurting yourself in some way Not at all 05/30/2024 8:43 AM Patrica Prado Patient Health Questionnaire -9 Score 0 05/30/2024 8:43 AM EDT Patrica Moncada * If you checked off any problems on this questionnaire so far, Question Answer Date of Assessment Author How difficult have these problems made it for you to do your work, take care of things at home, or get along with other people? Not difficult at all 05/30/2024 8:43 AM EDT Patrica Moncada documented as of this encounter Miscellaneous Notes * Telephone Encounter - Lori Levi RN - 07/30/2024 3:39 PM EDT Per [facility] No US Liver completed US renal results received * Telephone Encounter - Lori Levi RN - 07/28/2024 12:54 PM EDT US scheduled for 07/30/24 at [facility] F/U results * Result Encounter Note - Jenny Alberto MD - 07/17/2024 8:37 PM EDT Pls tell pt Your ultrasound shows no liver lesions. It showed incidentally visualized minimally complex kidney cysts. Recommend dedicated renal ultrasound for further evaluation. -- will order kidney ultrasound to evaluate the cyst * Result Encounter Note - Jenny Alberto MD - 05/27/2024 12:47 PM EDT Labs are stable Thyroid stimulating hormone is normal now documented in this encounter Plan of Treatment Upcoming Encounters Date Type Department Care Team (Late st Contact Info) Description 01/05/2025 8:00 AM EDT Office Visit [facility] Medicine Specialties [address] [place] [address] Jenny Alberto MD [address] [place] [address] 01/15/2025 10:10 AM EST Office Visit [facility] [address] [place] [address] Myles Dyer MD [address] [place] [address] Scheduled Orders Name Type Priority Associated Diagnoses Orde r Schedule US Renal Complete Imaging Routine Renal cyst Expected: 07/17/2024 (Approximate), Expires: 01/17/2026 documented as of this encounter Visit Diagnoses Diagnosis Renal cyst- Primary Unspecified congenital cystic kidney disease documented in this encounter Additional Health Concerns Assessment Noted Time PHQ-9 Depression Total Score: 3 05/24/19 25 8:27 AM EDT A fall risk assessment has been complete d for the patient 05/23/2024 8:27 AM EDT A Body Mass Index follow-up plan has been documented for the patient 05/23/2024 11:20 AM EDT documented as of this encounter Care Teams Bleacher [employer] Relationship Specialty Start Date End Date Luis Lawson MD [address] [place] [address] PCP - General 02/25/24 documented as of this encounter
--- OUTSIDE RECORDS SUMMARY | 2024-08-29 07:22 | XMS_ITS | Encounter Summary ---
Author Organization Healthcare Address [address] [place] [address] Care Team Providers Care Customer Counter Representative Name Role Phone Luis Lawson MD Primary Care Provider [phone] Encounter Details Date Type Department Care Team (Late st Contact Info) Description 07/28/2024 Results Follow-Up [facility] Medicine Specialties [address] [place] [address] Jenny Alberto MD [address] [place] [address] Social History Tobacco Use Types [...] Encounter Note - Jenny Alberto MD - 07/28/2024 8:42 AM EDT Labs reviewed. Liver enzymes stable with lower dose of azathioprine 25mg/day-- repeat labs once a month Continue lower dose of azathioprine 25mg/d for now documented in this encounter Plan of Treatment Upcoming Encounters Date Type Department Care Team (Late st Contact Info) Description 01/05/2025 8:00 AM EDT Office Visit [facility] Medicine Specialties [address], [address] [place] [address] Jenny Alberto MD [address] [place] [address] 01/15/2025 10:10 AM EST Office Visit [facility] Medicine Specialties [address], [address] [place] [address] Myles Dyer MD [address] [place] [address] documented as of this encounter [...] documented as of this encounter Care Teams Customer Counter Representative Relationship Specialty Start Date End Date Luis Lawson MD [address] [place] [address] PCP - General 02/25/24 documented as of this encounter
--- OUTSIDE RECORDS SUMMARY | 2024-08-29 07:22 | XMS_ITS | Encounter Summary ---
Author Organization Healthcare Address [address] [place] [address] Care Team Providers Care Tape Weaver Name Role Phone Luis Lawson MD Primary Care Provider [phone] Encounter Details Date Type Department Care Team (Late st Contact Info) Description 07/02/2024 Results Follow-Up [facility] [address] [facility] [address] [place] [address] Suman Ansari MD [address] [facility] [address] [place] [address] Social History Tobacco Use Types [...] encounter Miscellaneous Notes * Telephone Encounter - Chelsea Mccann - 07/02/2024 1:14 PM EDT Called and spoke with patient Relayed provider message regarding lab results Patient verbalized understanding, no questions or concerns at this time * Telephone Encounter - Chelsea Mccann - 07/02/2024 1:14 PM EDT ----- Message from Suman Ansari MD sent at 07/02/2024 12:51 PM EDT ----- Liver enzymes reviewed. Stable. ----- Message ----- From: Lori Levi RN Sent: 06/30/2024 3:28 PM EDT To: Jenny Alberto MD * Result Encounter Note - Suman Ansari MD - 07/02/2024 12:51 PM EDT Liver enzymes reviewed. Stable. documented in this encounter Plan of Treatment Upcoming Encounters Date Type Department Care Team (Late st Contact Info) Description 01/05/2025 8:00 AM EDT Office Visit [facility] Medicine Specialties [address] [place] [address] Jenny Alberto MD [address] [facility] [address] [place] [address] 01/15/2025 10:10 AM EST Office Visit [facility] Medicine Specialties [address] [place] [address] Myles Dyer MD [address] [place] [address] documented as of this encounter Visit Diagnoses Not on filedocumented in this encounter Additional Health Concerns Assessment Noted Time PHQ-9 Depression Total Score: 0 05/31/19 8:43 AM EDT A fall risk assessment has been complete d for the patient 05/30/2024 8:43 AM EDT A Body Mass Index follow-up plan has been documented for the patient 05/30/2024 9:59 AM EDT documented as of this encounter Care Teams Tape Weaver Relationship Specialty Start Date End Date Luis Lawson MD [address] [place] [address] [address] [place] [address] PCP - General 02/25/24 documented as of this encounter
--- OUTSIDE RECORDS SUMMARY | 2024-08-29 07:22 | XMS_ITS | Encounter Summary ---
Author Organization Healthcare Address [address] [place] [address] Care Team Providers Care Textile Designs Sales Representative Name Role Phone Luis Lawson MD Primary Care Provider [phone] Encounter Details Date Type Department Care Team (Latest Contact Info) Description 07/14/2024 Travel Social History Tobacco Use Types Packs/Day Years [...] Description 01/05/2025 8:00 AM EDT Office Visit [facility] Medicine Specialties [address] [place] [address] Jenny Alberto MD [address] [place] [address] 01/15/2025 10:10 AM EST Office Visit [facility] Medicine Specialties [address], [address] [place] [address] Myles Dyer MD [address] [place] [address] documented as of this encounter [...] documented as of this encounter Care Teams Textile Designs Sales Representative Relationship Specialty Start Date End Date Luis Lawson MD [address] [place] [address] PCP - General 02/25/24 documented as of this encounter
[2024-08-29 07:38] LABS: Basophils % 0.5 % (0.1-2.0); Eosinophils # 0.1 Kmm3 (0.0-0.4); Eosinophils % 2.4 % (0.1-12.0); Hematocrit 43.6 % (42.0-52.0); Hemoglobin 14.6 g/dL (14.1-18.0); Immature Granulocytes # 0.01 10^3uL; Immature Granulocytes % 0.2 %; Lymphocytes # 1.5 K/mm3 (0.7-4.5); Lymphocytes % 35.2 % (10-50); Mean Corpuscular HGB Conc 33.5 g/dL (31.8-35.4); Mean Corpuscular Hemoglobin 31.4 pg (27.0-31.2); Mean Corpuscular Volume 93.8 fl (80-94); Mean Platelet Volume 9.8 fl (7.4-10.4); Monocytes # 0.4 K/mm3 (0.1-1.0); Monocytes % 8.6 % (1.7-9.3); Neutrophils # 2.2 K/mm3 (1.8-7.8); Neutrophils % 53.1 % (37.0-80.0); Nucleated Red Blood Cells # 0 10^3/uL; Nucleated Red Blood Cells % 0 %; Platelet Count 116 K/mm3 (142-424); Red Blood Count 4.65 M/mm3 (4.60-6.20); Red Cell Distribution Width 13.4 % (11.5-17.5); Red Cell Distribution Width-SD 45.7 fL; White Blood Count 4.2 K/mm3 (4.8-10.8)
[2024-08-29 08:28] LABS: Albumin Level 4.2 g/dl (3.5-5.0); Chloride 106 mmol/L (98-107)
[2024-08-29 08:29] LABS: Sodium 140 mmol/L (136-145)
[2024-08-29 08:31] LABS: Alanine Aminotransferase 47 U/L (12-78); Aspartate Amino Transferase 54 U/L (17-59); Blood Urea Nitrogen 17 mg/dl (9-20); Carbon Dioxide 30 mmol/L (22.0-30.0); Estimated Glomerular Filt Rate 82 ml/min (>60); GFR (African American) 100 ML/MIN (>60)
[2024-08-29 08:32] LABS: Albumin/Globulin Ratio 1.5 (1.1-1.8); Alkaline Phosphatase 107 U/L (38-126); Bilirubin,Total 1.4 mg/dl (0.2-1.3); Calcium 9.7 mg/dl (8.4-10.2); Globulin 2.8 g/dL (1.3-3.2); Glucose 102 mg/dl (74-100)
[2024-08-30 08:17] LABS: Immunoglobulin G, Qn 1311 mg/dL (603-1613)
== END 2024-08-29 23:59 | disposition home or self-care (01) ==
LOC: LAB 07:20
PROVIDERS: PCP Family Medicine; Visit Provider Internal Medicine Gastroenterology
DX: K75.4 Autoimmune hepatitis (principal)
CPT/HCPCS: 36415; 80053; 82784; 85025

== ENCOUNTER 2024-10-08 07:15 | Outpatient (CLI) | payer MEDICARE, SELFPAY ==
--- OUTSIDE RECORDS SUMMARY | 2007-02-05 06:39 | XMS_ITS | Continuity of Care Document ---
Author Name DOD[facility]AL Organization [facility] Care Team Providers Care Textile Engraver Name Role Phone [facility] Unavailable Unavailable Immunizations Combined list of available immunizations from the Department of Defense and Veterans Affairs facilities. Immunization Series Date Given Administered By Site Reaction Lot Number CVX Code Drug Industrial Technology Education Teacher Status Comments Source FLU,3 YRS (HISTORICAL) 2006 88 [place] [facility] [place] [facility]
--- OUTSIDE RECORDS SUMMARY | 2024-07-14 09:00 | XMS_ITS | Encounter Summary ---
Author Organization [facility] Address [address] [id number] Care Team Providers Care Power Reactor Supervisor Name Role Phone Luis Lawson MD Primary Care Provider [phone] Reason for Referral * Genetic Testing (Routine) - Authorized Specialty Diagnoses / Procedures Referred By Contac t Referred To Contact Lab Diagnoses Autoimmune hepatitis (CMS/HCC) Procedures IgG, Plasma Jenny Alberto MD [address] [address] Phone: tel: fax: Referral ID Status Reason Start Date Expiration Date V isits Requested Visits Authorized [id number] Authorized 07/14/2024 01/13/2026 1 1 * Consultation (Routine) - Authorized Specialty Diagnoses / Procedures Referred By Contac t Referred To Contact Diagnoses Autoimmune hepatitis (CMS/HCC) Nausea Jenny Alberto MD [address] [address] Phone: tel: fax: Referral ID Status Reason Start Date Expiration Date V isits Requested Visits Authorized [id number] Authorized 07/14/2024 01/13/2026 1 1 * Genetic Testing (Routine) - Closed Specialty Diagnoses / Procedures Referred By Contac t Referred To Contact Lab Diagnoses Autoimmune hepatitis (CMS/HCC) Procedures IgG, Plasma Jenny Alberto MD [address] [facility] [address] [place] [address] Phone: tel: fax: Referral ID Status Reason Start Date Expiration Date Visits Re quested Visits Authorized [id number] Closed 07/14/2024 01/13/2026 1 1 Reason for Visit * Reason Comments Nausea and vomiting, unspecified vomitin g type Autoimmune hepatitis (CMS/HCC) Encounter Details Date Type Department Care Team (Late st Contact Info) Description 07/14/2024 9:00 AM EDT Office Visit [place] [facility] [address] [place] [address] Jenny Alberto MD [address] [facility] [address] [place] [address] Autoimmune hepatitis (CMS/HCC) (Primary Dx); Nausea; Other specified hypothyroidism; Encounter for intermediate current use of azathioprine; On prednisone therapy [...] May- went to ER In [facility] 06/05/24 No abd pain,hematochezia Reports improvement of nausea, but still has nausea, thus he stopped azathioprine on his own. He has been off azathioprine for 2 weeks EGD- I reviewed report of EGD done by Dr. 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 Cabezas [...] Description 11/03/2024 8:40 AM EDT Office Visit [facility] Medicine Specialties [address] [place] [address] Jenny Alberto MD [address] [place] [address] 01/15/2025 10:10 AM EST Office Visit [facility] Medicine [facility]ties [address] [place] [address] Yana Spence MD [address] [place], [place] [phone] Scheduled Orders Name Type Priority Associated Diagnoses [...] - 4.20 uIU/mL 07/14/2024 11:20 AM EDT [facility] Blood Venous blood specimen / Unknown Venipuncture / Unknown 07/14/2024 10:01 AM EDT 07/14/2024 10:01 AM EDT Jenny Alberto MD LAB BLOOD ORDERABLES Final Result Performing Organization Address City/[facility]/ZIP Co de Phone Number [facility] [address] [place] [address] * IgG, Plasma (07/14/2024 10:01 AM EDT) IGG 1,222 720 - 1,589 mg/dL 07/14/2024 11:20 AM EDT [facility] Blood Venous blood specimen / Unknown Venipuncture / Unknown 07/14/2024 10:01 AM EDT 07/14/2024 10:01 AM EDT Jenny Alberto MD LAB BLOOD ORDERABLES Final Result [facility] [address] [place] [address] * (ABNORMAL) Comprehensive metabolic panel (07/14/2024 10:01 AM EDT) Glucose, Plasma 102(H) 74 - 99 mg/dL 07/14/2024 11:20 AM EDT [facility] BUN, Plasma 16 8 - 23 mg/dL 07/14/2024 11:20 AM EDT [facility] Creatinine, Plasma 0.81 0.70 - 1.20 mg/dL 07/14/2024 11:20 AM EDT [facility] BUN/Creatinine Ratio 07/14/2024 11:20 AM EDT [facility] Sodium, Plasma 142 136 - 145 mmol/L 07/14/2024 11:20 AM EDT [facility] Potassium, Plasma 4.0 3.6 - 4.9 mmol/L 07/14/2024 11:20 AM EDT [facility] Chloride, Plasma 106 97 - 107 mmol/L 07/14/2024 11:20 AM EDT [facility] CO2, Plasma 25 22 - 29 mmol/L 07/14/2024 11:20 AM EDT [facility] Anion Gap 11 6 - 16 mmol/L 07/14/2024 11:20 AM EDT [facility] Total Calcium, Plasma 9.6 8.9 - 10.2 mg/dL 07/14/2024 11:20 AM EDT [facility] Total Protein 7.1 6.3 - 7.9 g/dL 07/14/2024 11:20 AM EDT [facility] Albumin, Plasma 4.1 3.5 - 5.2 g/dL 07/14/2024 11:20 AM EDT [facility] AST, Plasma 30 10 - 50 U/L 07/14/2024 11:20 AM EDT [facility] ALT, Plasma 36 10 - 50 U/L 07/14/2024 11:20 AM EDT [facility] Alkaline Phosphatase, Plasma 79 40 - 115 U/L 07/14/2024 11:20 AM EDT [facility] Total Bilirubin, Plasma 0.6 0.2 - 1.1 mg/dL 07/14/2024 11:20 AM EDT [facility] eGFRcr 91.9 mL/min/1.7 3m*2 07/14/2024 11:20 AM EDT [facility] Comment:Reported eGFRcr in m L/min/1.73m2 is based the CKD-EPI 2020 equation that does not use a race coefficient. Blood Venous blood specimen / Unknown Venipuncture / Unknown 07/14/2024 10:01 AM EDT 07/14/2024 10:01 AM EDT us Jenny Alberto MD LAB BLOOD ORDERABLES Final Result [facility] [address] [place] [address] documented in this encounter Visit Diagnoses Diagnosis Autoimmune hepatitis (CMS/HCC)- Primary Autoimmune hepatitis Nausea Nausea alone Other specified hypothyroidism Encounter for intermediate current use of azathioprine On prednisone therapy [...] documented as of this encounter Care Teams Power Reactor Supervisor Relationship Specialty Start Date End Date Luis Lawson MD [address] [place] [address] PCP - General 02/25/24 documented as of this encounter
--- OUTSIDE RECORDS SUMMARY | 2024-09-22 09:00 | XMS_ITS | Encounter Summary ---
Author Organization [facility] Address [address] [place] [address] Care Team Providers Care Senior Outside Sales Representative Name Role Phone Luis Lawson MD Primary Care Provider [phone] Reason for Referral * Consultation (Routine) - Authorized Specialty Diagnoses / Procedures Referred By Contac t Referred To Contact Diagnoses Autoimmune hepatitis (CMS/HCC) Other cirrhosis of liver (CMS/HCC) Bjorn Cano MD [address] [address] Phone: tel: fax: Referral ID Status Reason Start Date Expiration Date V isits Requested Visits Authorized [id number] Authorized 09/22/2024 03/24/2026 1 1 * Imaging (Routine) - Pending Review Specialty Diagnoses / Procedures Referred By Contac t Referred To Contact Radiology Diagnoses Other cirrhosis of liver (CMS/HCC) Procedures US Liver Screen Bjorn Cano MD [address] [address] Phone: tel: fax: Referral ID Status Reason Start Date Expiration Date V isits Requested Visits Authorized [id number] Pending Review 09/22/2024 03/24/2026 1 1 * Genetic Testing (Routine) - Closed Specialty Diagnoses / Procedures Referred By Contac t Referred To Contact Lab Diagnoses Autoimmune hepatitis (CMS/HCC) Procedures IgG Bjorn Cano MD [address] [facility] [address] [place] [address] Phone: tel: fax: Referral ID Status Reason Start Date Expiration Date Visits Re quested Visits Authorized [id number] Closed 09/22/2024 03/24/2026 1 1 Reason for Visit * Reason Comments Autoimmune Hepatitis Nausea Vomiting Encounter Details Date Type Department Care Team (Late st Contact Info) Description 09/22/2024 9:00 AM EDT Office Visit [facility] [address] [place] [address] Jenny Alberto MD [address] [facility] [address] [place] [address] Autoimmune hepatitis (CMS/HCC) (Primary Dx); [...] EGD: Completed 06/02/[address] Vargas at [place]. No EV. PHG with reactive gastropathy. The [...] Last EGD 06/02/[address] Vargas at [place]. No EV. PHG with reactive gastropathy. - [...] liver enzymes and IgG (ALT from 50s/60s [id number])- increase prednisone to 30mg/day, start myfortic 180mg [...] Description 11/03/2024 8:40 AM EDT Office Visit [facility] Medicine Specialties [address] [place] [id number] Jenny Alberto MD [address] [place] [address] 01/15/2025 10:10 AM EST Office Visit [facility] Specialties [address] [place] [address] Yana Spence MD [address] [place], [place] [id number] Scheduled Orders Name Type Priority Associated Diagnoses [...] - 1,589 mg/dL 09/22/2024 12:25 PM EDT [facility] Blood Venous blood specimen / Unknown Venipuncture / Unknown 09/22/2024 10:25 AM EDT 09/22/2024 10:25 AM EDT us Bjorn Cano MD LAB BLOOD ORDERABLES Final Resul t Performing Organization Address [facility] [place] [address] * (ABNORMAL) Protime-INR (09/22/2024 10:25 AM EDT) Pathologist [facility] Prothrombin Time 14.7(H) 12.0 - 14.3 sec LAB COAGULATION METHOD 09/22/2024 12:02 PM EDT [facility] INR 1.1 0.9 - 1.1 LAB COAGULATION METHOD 09/22/2024 12:02 PM EDT [facility] Blood Venous blood specimen / Unknown Venipuncture / Unknown 09/22/2024 10:25 AM EDT 09/22/2024 10:25 AM EDT Narrative [facility] - 09/22/2024 12:02 PM EDT OPTIMAL INR RANGES FOR PATIENT ON ORAL ANTICOAGULANT THERAPY Prevention of venous thromboembolism INR 2.0 to 3.0 In patients with heart disease: Atrial fibrillation INR 2.0 to 3.0 Valvular heart disease INR 2.0 to 3.0 Tissue heart valves INR 2.0 to 3.0 Mechanical prosthetic valves INR 2.5 to 3.5 Prevention of recurrent [place] INR 2.5 to 3.5 us Bjorn Cano MD LAB BLOOD ORDERABLES Final Resul t Performing Organization Address City/[facility]/ZIP Co de Phone Number [facility] [address] [place] [address] * (ABNORMAL) CBC and differential (09/22/2024 10:25 AM EDT) WBC Count 5.85 3.70 - 10.30 10*3/uL LAB HEMATOLOGY METHOD 09/22/2024 12:24 PM EDT [facility] RBC Count 4.69 4.60 - 6.10 10*6/uL LAB HEMATOLOGY METHOD 09/22/2024 12:24 PM EDT [facility] HGB 14.8 13.7 - 17.5 g/dL LAB HEMATOLOGY METHOD 09/22/2024 12:24 PM EDT [facility] HCT 44.6 40.0 - 51.0 % LAB HEMATOLOGY METHOD 09/22/2024 12:24 PM EDT [facility] Platelet Count 128(L) 155 - 369 10*3/uL LAB HEMATOLOGY METHOD 09/22/2024 12:24 PM EDT [facility] MCV 95 79 - 98 fL LAB HEMATOLOGY METHOD 09/22/2024 12:24 PM EDT [facility] MCH 31.6 26.0 - 32.0 pg LAB HEMATOLOGY METHOD 09/22/2024 12:24 PM EDT [facility] MCHC 33.2 30.7 - 35.5 g/dL LAB HEMATOLOGY METHOD 09/22/2024 12:24 PM EDT [facility] RDW 14.2 11.5 - 14.5 % LAB HEMATOLOGY METHOD 09/22/2024 12:24 PM EDT [facility] MPV 10.6 8.8 - 12.5 fL LAB HEMATOLOGY METHOD 09/22/2024 12:24 PM EDT [facility] nRBC 0.0 <=0.0 per 100 WBCs LAB HEMATOLOGY METHOD 09/22/2024 12:24 PM EDT [facility] Differential Type Automated LAB HEMATOLOGY METHOD 09/22/2024 12:24 PM EDT [facility] Neutrophils % 61 % LAB HEMATOLOGY METHOD 09/22/2024 12:24 PM EDT [facility] Lymphocytes % 27 % LAB HEMATOLOGY METHOD 09/22/2024 12:24 PM EDT [facility] Monocytes % 9 % LAB HEMATOLOGY METHOD 09/22/2024 12:24 PM EDT [facility] Eosinophils % 2 % LAB HEMATOLOGY METHOD 09/22/2024 12:24 PM EDT [facility] Basophils % 1 % LAB HEMATOLOGY METHOD 09/22/2024 12:24 PM EDT [facility] Immature Granulocytes % 0 % LAB HEMATOLOGY METHOD 09/22/2024 12:24 PM EDT [facility] Neutrophils Absolute 3.54 1.60 - 6.10 10*3/uL LAB HEMATOLOGY METHOD 09/22/2024 12:24 PM EDT [facility] Lymphocytes Absolute 1.60 1.20 - 3.90 10*3/uL LAB HEMATOLOGY METHOD 09/22/2024 12:24 PM EDT [facility] Monocytes Absolute 0.55 0.30 - 0.90 10*3/uL LAB HEMATOLOGY METHOD 09/22/2024 12:24 PM EDT [facility] Eosinophils Absolute 0.11 0.00 - 0.50 10*3/uL LAB HEMATOLOGY METHOD 09/22/2024 12:24 PM EDT [facility] Basophils Absolute 0.04 0.00 - 0.10 10*3/uL LAB HEMATOLOGY METHOD 09/22/2024 12:24 PM EDT [facility] Immature Granulocytes Absolute 0.01 0.00 - 0.06 10*3/uL LAB HEMATOLOGY METHOD 09/22/2024 12:24 PM EDT [facility] Blood Venous blood specimen / Unknown Venipuncture / Unknown 09/22/2024 10:25 AM EDT 09/22/2024 10:25 AM EDT Narrative [facility] - 09/22/2024 12:24 PM EDT Therapeutic decision making should be based on absolute values, rather than percentages. us Bjorn Cano MD LAB BLOOD ORDERABLES Final Resul t [facility] [address] [place] [address] * (ABNORMAL) Comprehensive metabolic panel (09/22/2024 10:25 AM EDT) Glucose, Plasma 93 74 - 99 mg/dL 09/22/2024 11:58 AM EDT [facility] BUN, Plasma 23 8 - 23 mg/dL 09/22/2024 11:58 AM EDT [facility] Creatinine, Plasma 0.93 0.70 - 1.20 mg/dL 09/22/2024 11:58 AM EDT [facility] BUN/Creatinine Ratio 25 09/22/2024 11:58 AM EDT [facility] Sodium, Plasma 140 136 - 145 mmol/L 09/22/2024 11:58 AM EDT [facility] Potassium, Plasma 4.4 3.6 - 4.9 mmol/L 09/22/2024 11:58 AM EDT [facility] Chloride, Plasma 103 97 - 107 mmol/L 09/22/2024 11:58 AM EDT [facility] CO2, Plasma 28 22 - 29 mmol/L 09/22/2024 11:58 AM EDT [facility] Anion Gap 9 6 - 16 mmol/L 09/22/2024 11:58 AM EDT [facility] Total Calcium, Plasma 9.9 8.9 - 10.2 mg/dL 09/22/2024 11:58 AM EDT [facility] Total Protein 7.2 6.3 - 7.9 g/dL 09/22/2024 11:58 AM EDT [facility] Albumin, Plasma 4.2 3.5 - 5.2 g/dL 09/22/2024 11:58 AM EDT [facility] AST, Plasma 95(H) 10 - 50 U/L 09/22/2024 11:58 AM EDT [facility] ALT, Plasma 115(H) 10 - 50 U/L 09/22/2024 11:58 AM EDT [facility] Alkaline Phosphatase, Plasma 117(H) 40 - 115 U/L 09/22/2024 11:58 AM EDT [facility] Total Bilirubin, Plasma 0.9 0.2 - 1.1 mg/dL 09/22/2024 11:58 AM EDT [facility] eGFRcr 85.6 mL/min/1.7 3m*2 09/22/2024 11:58 AM EDT [facility] Comment:Reported eGFRcr in m L/min/1.73m2 is based the CKD-EPI 2020 equation that does not use a race coefficient. Blood Venous blood specimen / Unknown Venipuncture / Unknown 09/22/2024 10:25 AM EDT 09/22/2024 10:25 AM EDT us Bjorn Cano MD LAB BLOOD ORDERABLES Final Resul t [facility] [address] [place] [address] documented in this encounter Visit Diagnoses Diagnosis Autoimmune hepatitis (CMS/HCC)- Primary Autoimmune hepatitis Other cirrhosis of liver (CMS/HCC) Nausea Nausea alone Elevated liver enzymes Other nonspecific abnormal serum enzyme levels High total IgG History of diverticulitis documented in this encounter Additional Health Concerns Assessment Noted Time PHQ-9 Depression Total Score: 0 09/23/19 25 9:08 AM EDT A fall risk assessment has been complete d for the patient 09/22/2024 9:09 AM EDT A Body Mass Index follow-up plan has been documented for the patient 09/23/2024 1:05 AM EDT documented as of this encounter Care Teams Senior Outside Sales Representative Relationship Specialty Start Date End Date Luis Lawson MD [address] [place] [address] PCP - General 02/25/24 documented as of this encounter
--- OUTSIDE RECORDS SUMMARY | 2024-09-22 10:40 | XMS_ITS | Encounter Summary ---
Author Organization Healthcare Address [address] [place] [place] [address] Care Team Providers Care Inside Sales Advertising Executive Name Role Phone Luis Lawson MD Primary Care Provider Reason for Visit * Genetic Testing (Routine) - Closed Specialty Diagnoses / Procedures Referred By Contac t Referred To Contact Lab Diagnoses Autoimmune hepatitis (CMS/HCC) Procedures IgG Bjorn Cano MD [address] [place] [address] Phone: tel: fax: Referral ID Status Reason Start Date Expiration Date Visits Re quested Visits Authorized [id number] Closed 09/22/2024 03/24/2026 1 1 Encounter Details Date Type Department Care Team (Latest Contact Info) Description 09/22/2024 10:40 AM EDT [facility] Support [facility] [address] [place] [address] Autoimmune hepatitis (CMS/HCC) Social History [...] Description 11/03/2024 8:40 AM EDT Office Visit [facility] Medicine Specialties [address] [place] [address] Jenny Alberto MD [address] [place] [address] 01/15/2025 10:10 AM EST Office Visit [facility] Medicine Specialties [address] [place] [address] Yana Spence MD [address] [place] [address] documented as of this encounter [...] - 1,589 mg/dL 09/22/2024 12:25 PM EDT [facility] Blood Venous blood specimen / Unknown Venipuncture / Unknown 09/22/2024 10:25 AM EDT 09/22/2024 10:25 AM EDT us Bjorn Cano MD LAB BLOOD ORDERABLES Final Resul t [facility] [address] [place] [address] * (ABNORMAL) CBC and differential (09/22/2024 10:25 AM EDT) WBC Count 5.85 3.70 - 10.30 10*3/uL LAB HEMATOLOGY METHOD 09/22/2024 12:24 PM EDT [facility] RBC Count 4.69 4.60 - 6.10 10*6/uL LAB HEMATOLOGY METHOD 09/22/2024 12:24 PM EDT [facility] HGB 14.8 13.7 - 17.5 g/dL LAB HEMATOLOGY METHOD 09/22/2024 12:24 PM EDT [facility] HCT 44.6 40.0 - 51.0 % LAB HEMATOLOGY METHOD 09/22/2024 12:24 PM EDT [facility] Platelet Count 128(L) 155 - 369 10*3/uL LAB HEMATOLOGY METHOD 09/22/2024 12:24 PM EDT [facility] MCV 95 79 - 98 fL LAB HEMATOLOGY METHOD 09/22/2024 12:24 PM EDT [facility] MCH 31.6 26.0 - 32.0 pg LAB HEMATOLOGY METHOD 09/22/2024 12:24 PM EDT [facility] MCHC 33.2 30.7 - 35.5 g/dL LAB HEMATOLOGY METHOD 09/22/2024 12:24 PM EDT [facility] RDW 14.2 11.5 - 14.5 % LAB HEMATOLOGY METHOD 09/22/2024 12:24 PM EDT [facility] MPV 10.6 8.8 - 12.5 fL LAB HEMATOLOGY METHOD 09/22/2024 12:24 PM EDT [facility] nRBC 0.0 <=0.0 per 100 WBCs LAB HEMATOLOGY METHOD 09/22/2024 12:24 PM EDT [facility] Differential Type Automated LAB HEMATOLOGY METHOD 09/22/2024 12:24 PM EDT [facility] Neutrophils % 61 % LAB HEMATOLOGY METHOD 09/22/2024 12:24 PM EDT [facility] Lymphocytes % 27 % LAB HEMATOLOGY METHOD 09/22/2024 12:24 PM EDT [facility] Monocytes % 9 % LAB HEMATOLOGY METHOD 09/22/2024 12:24 PM EDT [facility] Eosinophils % 2 % LAB HEMATOLOGY METHOD 09/22/2024 12:24 PM EDT [facility] Basophils % 1 % LAB HEMATOLOGY METHOD 09/22/2024 12:24 PM EDT [facility] Immature Granulocytes % 0 % LAB HEMATOLOGY METHOD 09/22/2024 12:24 PM EDT [facility] Neutrophils Absolute 3.54 1.60 - 6.10 10*3/uL LAB HEMATOLOGY METHOD 09/22/2024 12:24 PM EDT [facility] Lymphocytes Absolute 1.60 1.20 - 3.90 10*3/uL LAB HEMATOLOGY METHOD 09/22/2024 12:24 PM EDT [facility] Monocytes Absolute 0.55 0.30 - 0.90 10*3/uL LAB HEMATOLOGY METHOD 09/22/2024 12:24 PM EDT [facility] Eosinophils Absolute 0.11 0.00 - 0.50 10*3/uL LAB HEMATOLOGY METHOD 09/22/2024 12:24 PM EDT [facility] Basophils Absolute 0.04 0.00 - 0.10 10*3/uL LAB HEMATOLOGY METHOD 09/22/2024 12:24 PM EDT [facility] Immature Granulocytes Absolute 0.01 0.00 - 0.06 10*3/uL LAB HEMATOLOGY METHOD 09/22/2024 12:24 PM EDT [facility] Blood Venous blood specimen / Unknown Venipuncture / Unknown 09/22/2024 10:25 AM EDT 09/22/2024 10:25 AM EDT Narrative [facility] - 09/22/2024 12:24 PM EDT Therapeutic decision making should be based on absolute values, rather than percentages. us Bjorn Cano MD LAB BLOOD ORDERABLES Final Resul t [facility] [address] [place] [address] * (ABNORMAL) Protime-INR (09/22/2024 10:25 AM EDT) Prothrombin Time 14.7(H) 12.0 - 14.3 sec LAB COAGULATION METHOD 09/22/2024 12:02 PM EDT [facility] INR 1.1 0.9 - 1.1 LAB COAGULATION METHOD 09/22/2024 12:02 PM EDT [facility] Blood Venous blood specimen / Unknown Venipuncture / Unknown 09/22/2024 10:25 AM EDT 09/22/2024 10:25 AM EDT Narrative [facility] - 09/22/2024 12:02 PM EDT OPTIMAL INR RANGES FOR PATIENT ON ORAL ANTICOAGULANT THERAPY Prevention of venous thromboembolism INR 2.0 to 3.0 In patients with heart disease: Atrial fibrillation INR 2.0 to 3.0 Valvular heart disease INR 2.0 to 3.0 Tissue heart valves INR 2.0 to 3.0 Mechanical prosthetic valves INR 2.5 to 3.5 Prevention of recurrent HI INR 2.5 to 3.5 us Bjorn Cano MD LAB BLOOD ORDERABLES Final Resul t [facility] [address] [place] [address] * (ABNORMAL) Comprehensive metabolic panel (09/22/2024 10:25 AM EDT) Glucose, Plasma 93 74 - 99 mg/dL 09/22/2024 11:58 AM EDT [facility] BUN, Plasma 23 8 - 23 mg/dL 09/22/2024 11:58 AM EDT [facility] Creatinine, Plasma 0.93 0.70 - 1.20 mg/dL 09/22/2024 11:58 AM EDT [facility] BUN/Creatinine Ratio 25 09/22/2024 11:58 AM EDT [facility] Sodium, Plasma 140 136 - 145 mmol/L 09/22/2024 11:58 AM EDT [facility] Potassium, Plasma 4.4 3.6 - 4.9 mmol/L 09/22/2024 11:58 AM EDT [facility] Chloride, Plasma 103 97 - 107 mmol/L 09/22/2024 11:58 AM EDT [facility] CO2, Plasma 28 22 - 29 mmol/L 09/22/2024 11:58 AM EDT [facility] Anion Gap 9 6 - 16 mmol/L 09/22/2024 11:58 AM EDT [facility] Total Calcium, Plasma 9.9 8.9 - 10.2 mg/dL 09/22/2024 11:58 AM EDT [facility] Total Protein 7.2 6.3 - 7.9 g/dL 09/22/2024 11:58 AM EDT [facility] Albumin, Plasma 4.2 3.5 - 5.2 g/dL 09/22/2024 11:58 AM EDT [facility] AST, Plasma 95(H) 10 - 50 U/L 09/22/2024 11:58 AM EDT [facility] ALT, Plasma 115(H) 10 - 50 U/L 09/22/2024 11:58 AM EDT [facility] Alkaline Phosphatase, Plasma 117(H) 40 - 115 U/L 09/22/2024 11:58 AM EDT [facility] Total Bilirubin, Plasma 0.9 0.2 - 1.1 mg/dL 09/22/2024 11:58 AM EDT [facility] eGFRcr 85.6 mL/min/1.7 3m*2 09/22/2024 11:58 AM EDT [facility] Comment:Reported eGFRcr in m L/min/1.73m2 is based the CKD-EPI 2020 equation that does not use a race coefficient. Blood Venous blood specimen / Unknown Venipuncture / Unknown 09/22/2024 10:25 AM EDT 09/22/2024 10:25 AM EDT us Bjorn Cano MD LAB BLOOD ORDERABLES Final Resul t [facility] [address] [place] [address] documented in this encounter Visit Diagnoses Diagnosis [...] documented as of this encounter Care Teams Inside Sales Advertising Executive Relationship Specialty Start Date End Date Luis Lawson MD [address] [place] [address] 1 [place] [address] PCP - General 02/25/24 documented as of this encounter
--- OUTSIDE RECORDS SUMMARY | 2024-10-08 07:18 | XMS_ITS | Encounter Summary ---
Author Organization Healthcare Address [address] [place] [address] Care Team Providers Care Physician Coding Specialist Name Role Phone Luis Lawson MD Primary Care Provider [phone] Encounter Details Date Type Department Care Team (Late st Contact Info) Description 09/01/2024 Telephone [place] [facility] Specialties [address] [place] [phone] Caroline Tsang, RN Social History Tobacco Use Types Packs/Day Years [...] Questionnaire -2 Score 0 09/22/2024 9:08 AM EDT Harsha Reina * Question Answer Date of Assessment Author Trouble falling or staying a sleep, or sleeping too much Not at all 09/22/2024 9:08 AM EDT Harsha Reina Feeling tired or having edyta le energy Not at all 09/22/2024 9:08 AM JAREDT Harsha Reina Poor appetite or overeating Not at all 09/22/2024 9: 08 AM EDT Harsha Reina Feeling bad about yourself - or that you are a failure or have let yourself or your family down Not at all 09/22/2024 9:08 AM EDT Harsha Reina Trouble concentrating on thi ngs, such as reading the newspaper or watching television Not at all 09/22/2024 9:08 AM JAREDT Harsha Reina Moving or speaking so slowly that other people could have noticed? Or the opposite - being so fidgety or restless that you have been moving around a lot more than usual. Not at all 09/22/2024 9:08 AM JAREDT Harsha Reina Thoughts that you would be b meredith off or hurting yourself in some way Not at all 09/22/2024 9:08 AM EDT Harsha Reina Patient Health Questionnaire -9 Score 0 09/22/2024 9:08 AM JAREDT Harsha Reina * If you checked off any problems on this questionnaire so far, Question Answer Date of Assessment Author How difficult have these problems made it for you to do your work, take care of things at home, or get along with other people? Not difficult at all 09/22/2024 9:08 AM JAREDT Harsha Reina documented as of this encounter Miscellaneous Notes * Telephone Encounter - Lori Levi RN - 09/26/2024 2:43 PM EDT 09/22/24 labs completed and addressed * Telephone Encounter - Caroline Tsang RN - 09/01/2024 8:21 AM EDT Relayed message to pt. Task out to provider reminder call and fax labs * Telephone Encounter - Caroline Tsang RN - 09/01/2024 8:20 AM EDT Images from the original note were not included. Jenny Alberto MD Johnson, Kaitlyn N, RN Pls have him repeat labs in 1month, mild increase in bilirubin and AST/ALT Previous Messages ----- Message ----- From: Caroline Tsang RN Sent: 08/29/2024 3:24 PM EDT To: Jenny Alberto MD Subject: Import Imported by Caroline Tsang RN on 08/29/2024 at 3:24 PM to the following: Comprehensive Metabolic Panel, Plasma [[id number]] on 08/29/2024 documented in this encounter Plan of Treatment Upcoming Encounters Date Type Department Care Team (Late st Contact Info) Description 11/03/2024 8:40 AM EDT Office Visit [facility] Medicine Specialties [address] [place] [address] Jenny Alberto MD [address] [facility] [address] [place] [address] 01/15/2025 10:10 AM EST Office Visit [facility] Medicine Specialties [address] [place] [address] Yana Spence MD [address] [place] [address] documented as of this encounter [...] as of this encounter Care Teams Physician Coding Specialist Relationship Specialty Start Date End Date Luis Lawson MD [address] [place], [place] [address] [address] PCP - General 02/25/24 documented as of this encounter
--- OUTSIDE RECORDS SUMMARY | 2024-10-08 07:18 | XMS_ITS | Encounter Summary ---
Author Organization [facility] Address [address] [place] [address] Care Team Providers Care Registry Np Name Role Phone Field, Vita PAINTING Primary Care Provider [phone] Luis Lawson MD Primary Care Provider [phone] Encounter Details Date Type Department Care Team (Late st Contact Info) Description 01/23/2024 Lab Requisition [facility] [address] [place] [address] Jenny Alberto MD [address] [facility] [address] [place] [address] Elevation of levels of liver transaminase levels [...] Description 11/03/2024 8:40 AM EDT Office Visit [facility] Medicine Specialties [address] [place] [address] Jenny Alberto MD [address] [facility] [address] [place] [address] 01/15/2025 10:10 AM EST Office Visit [facility] Medicine [facility] [address] [place] [address] Yana Spence MD [address] [place] [address] documented as of this encounter Procedures Procedure Name Priority Date/Time Associated Diagnosis Comments SURGICAL PATHOLOGY CONSULT Routine 01/23/2024 1:42 PM EST Elevation of levels of liver transaminase levels documented in this encounter Results * Surgical Pathology Consult (01/23/2024 1:42 PM EST) Case Report Sugical Pathology Consult Case: [id number] Authorizing Provider: Jenny Alberto MD Collected: 01/23/2024 1342 Ordering Location: [facility] Lab Received: 01/23/2024 1342 Pathologist: Nasra Nava MD Specimen: Liver, [id number] 01/24/2024 4:41 PM EST [facility] Final Diagnosis LIVER, NEEDLE CORE BIOPSY ([id number]; 08/15/2023): - CLINICOPATHOLOGIC FINDINGS CONSISTENT WITH AUTOIMMUNE HEPATITIS WITH STAGE 4 FIBROSIS (SEE COMMENT). 01/24/2024 4:41 PM EST [facility] at 1641 EST Comment [...] correlation is recommended. 01/24/2024 4:41 PM EST [facility] Clinical Information R74.01 - Elevation of levels of liver transaminase levels [ICD-10-CM] 01/24/2024 4:41 PM EST [facility] Gross Description A. [id number] Received along with a corresponding pathology report from [facility] are 3 slides labeled outside case: [id number] collected on 08/15/2023. 01/24/2024 4:41 PM EST [facility] Note: A resident was involved in the service. I attest I examined the relevant preparations for the specimens and confirmed the diagnosis or interpretation. 01/24/2024 4:41 PM EST [facility] Tissue Liver structure / Unknown 01/23/2024 1:42 PM EST 01/23/2024 1:42 PM EST us Jenny Alberto MD LAB PATHOLOGY ORDERABLES F inal Result [facility] [address] [place] [address] documented in this encounter Visit Diagnoses Diagnosis [...] documented as of this encounter Care Teams Registry Np Relationship Specialty Start Date End Date Vita Reid APRN [address] [place] [address] PCP - General 07/23/20 02/24/24 Luis Lawson MD [address] [place] [address] [address] [place] [address] PCP - General 02/25/24 documented as of this encounter
--- OUTSIDE RECORDS SUMMARY | 2024-10-08 07:18 | XMS_ITS | Clinical Summary ---
Author Organization [facility] Address [address] [place] [address] Care Team Providers Care Director Of National Sales Name Role Phone Luis Lawson MD Primary Care Provider [phone] Allergies No known active allergies Medications amLODIPine (Norvasc) 5 MG tablet Take 1 tablet (5 mg) by mouth 1 (one) time each day. 12/18/19 24 Active tamsulosin (Flomax) 0.4 MG 24 hr capsule Take 1 capsule (0.4 mg) by mouth 1 (one) time. 12/31/19 24 Active Multiple Vitamin (multivitamin) tablet Take 1 tablet by mouth 1 (one) time each day. Active atorvastatin (Lipitor) 10 MG tablet Take 1 tablet (10 mg) by mouth 1 (one) time each day. 01/30/20 24 Active ranolazine (Ranexa) 500 MG 12 hr tablet Take 1 tablet (500 mg) by mouth 2 (two) times a day. Do not crush, chew, or split. Active ASPIRIN 81 MG chewable tablet Chew 1 tablet (81 mg) 1 (one) time each day. Active carvedilol (Coreg) 12.5 MG tablet 03/26/19 25 Active ondansetron (Zofran) 4 MG tabletIndicatio ns:Nausea and vomiting, unspecified vomiting type,Autoimmune hepatitis (CMS/HCC) Take 1 tablet (4 mg) by mouth every 8 hours as needed for nausea or vomiting. 20 tablet 3 05/24/19 25 Active Additional Information Patient not taking.Reported on 09/22/2024 nutritional drink (Boost Plus) liquid liquid Drink 1 supplement up to 3 times a day or As Directed as a nutritional supplement. Flavor preference: per patient. 1 case today. Can dispense up to 4 cases at a time per patient request in the future 237 mL 11 05/24/19 Active Additional Information Patient not taking.Reported on 09/22/2024 levothyroxine (Synthroid, Levoxyl) 50 MCG tablet 07/08/19 Active predniSONE (Deltasone) 10 MG tablet Take 3 tablets by mouth daily. Take with breakfast 120 tablet 09/23/19 Active mycophenolate (Myfortic) 180 MG EC tablet Take 1 tablet by mouth 2 times a day. 60 tablet 1 09/23/19 Active predniSONE (Deltasone) 20 MG tablet 1 tablet (20 mg) 1 (one) time each day. 04/07/19 25 025 Discontinued azaTHIOprine (Imuran) 50 MG tabletIndicatio ns:Autoimmune hepatitis (CMS/HCC) Take 1 tab in am and 1/2 (Half) in pm 135 tablet 1 05/31/19 025 Discontinued Active Problems Problem Noted Date Diagnosed Date Anxiety 02/25/2024 Dyspnea 02/25/2024 Essential hypertension 02/25/2024 HHD (hypertensive heart disease) 02/25/2024 Chest pain 02/25/2024 CAD (coronary artery disease) 02/25/2024 Mixed hyperlipidemia 02/25/2024 Autoimmune hepatitis 02/06/2024 Assessment & Plan (09/22/2024 7:12 PM EDT): Orders: Comprehensive metabolic panel; Future CBC and differential; Future Protime-INR; Future IgG; Future Follow Up GI; Future Constipation 09/13/2022 Encounters Date Type Department Care Team Description 09/22/2024 10:40 AM EDT Clinical Support [facility] [address] [place] [phone] Autoimmune hepatitis (CMS/HCC) 09/22/2024 9:00 AM EDT Office Visit [facility] [address] [place] [address] Jenny Alberto MD Autoimmune hepatitis (CMS/HCC) (Primary Dx); Other cirrhosis of liver (CMS/HCC); Nausea; Elevated liver enzymes; High total IgG; History of diverticulitis 09/22/2024 Results Follow-Up [facility] [address] [place] [address] Bjorn Cano MD 09/22/2024 Travel 09/01/[address] [facility] [address] [place] [address] Caroline Tsang, JAMES 08/29/[address] [facility] [address] [place] [address] Caroline Tsang, RN Autoimmune hepatitis (CMS/HCC) 07/30/[address] [facility] [address] [place] [phone] Lori Levi RN 07/30/[address] [facility] [address] [place] [address] Jenny Alberto MD 07/28/2024 Results Follow-Up [facility] [address] [place] [address] Jenny Alberto MD 07/28/[address] [facility] [address] [place] [address] Jenny Alberto MD 07/25/[address] [facility] [address] [place] [phone] Jenny Alberto MD 07/16/2024 Results Follow-Up [facility] [address] [place] [phone] Jenny Alberto MD 07/14/2024 9:00 AM EDT Office Visit [facility] [address] [place] [address] Jenny Alberto MD Autoimmune hepatitis (CMS/HCC) (Primary Dx); Nausea; Other specified hypothyroidism; Encounter for [facility] current use of azathioprine; On prednisone therapy 07/14/2024 6:34 AM EDT - 07/14/2024 11:59 PM EDT Hospital Encounter [facility] [address] [place] [address] Other cirrhosis of liver (CMS/HCC) Discharge Disposition: Home or Self Care 07/14/2024 Telephone [facility] [address] [place] [address] Lori Levi RN 07/14/2024 Travel from Last 3 Months Immunizations Immunization Administration [...] F) 09/22/2024 9:00 AM EDT Respiratory Rate 16 05/30/2024 8:36 AM EDT Oxygen Saturation 96% 09/22/2024 9:00 AM EDT Inhaled Oxygen Concentration - - Weight 74.4 kg (164 lb 0.4 oz) 09/22/2024 9:00 A M EDT Height 175.3 cm (5' 9 ) 09/22/2024 9:00 AM EDT Body Mass Index 24.22 09/22/2024 9:00 AM EDT Plan of Treatment Upcoming Encounters Date Type Department Care Team (Late st Contact Info) Description 11/03/2024 8:40 AM EDT Office Visit [facility] [address] [place] [address] Jenny Alberto MD [address] [place] [address] 01/15/2025 10:10 AM EST Office Visit [facility] [address], [address] [place] [address] Yana Spence MD [address] [place] [address] Health Maintenance Due Date Last [...] or (1 - 1-dose 75+ series) 10/11/2023 [id number] Vaccine (7 - Moderna risk 2023- season) 2024 01/03/2024, 12/28/2022, 12/28/2021, Additional history exists [facility]-Influenza Vaccine (#1) 2024 01/03/2023, [facility]-Depression Screening 09/22/2025 09/22/2024, 09/09 [facility]-Hepatitis C Screening Completed 01/21/2024 HPV Vaccines [...] Date/Time Associated Diagnosis Comments IGG, PLASMA Routine 09/22/2024 10:25 AM EDT Autoimmune hepatitis (CMS/HCC) CBC WITH AUTO DIFFERENTIAL Routine 09/22/2024 10:25 AM EDT Autoimmune hepatitis (CMS/HCC) PROTHROMBIN TIME(PT) / INR Routine 09/22/2024 10:25 AM EDT Autoimmune hepatitis (CMS/HCC) COMPREHENSIVE METABOLIC PANEL, PLASMA Routine 09/22/2024 10:25 AM EDT Autoimmune hepatitis (CMS/HCC) COMPREHENSIVE METABOLIC PANEL, PLASMA Routine 08/29/2024 3:23 PM EDT Autoimmune hepatitis (CMS/HCC) COMPLETE METABOLIC PROFILE (CMP) Routine 07/25/2024 4:15 PM EDT IGG, PLASMA Routine 07/25/2024 2:43 PM EDT CBC W/DIFF Routine 07/25/2024 7:28 AM EDT C3 COMPLEMENT Routine 07/14/2024 10:01 AM EDT Systemic lupus erythematosus (SLE) in adult (CMS/HCC) C4 COMPLEMENT Routine 07/14/2024 10:01 AM EDT Systemic lupus erythematosus (SLE) in adult (CMS/HCC) BETA-2 GLYCOPROTEIN 1 ANTIBODY, IGA (SO) Routine 07/14/2024 10:01 AM EDT Systemic lupus erythematosus (SLE) in adult [place] ANTI-BETA 2 GLYCOPROTEIN, IGG AND IGM Routine 07/14/2024 10:01 AM EDT Systemic lupus erythematosus (SLE) in adult [place] CARDIOLIPIN ANTIBODY, IGA (SO) Routine 07/14/2024 10:01 AM EDT Systemic lupus erythematosus (SLE) in adult ([facility] ANTICARDIOLIPIN Routine 07/14/2024 10:01 AM EDT Systemic lupus erythematosus (SLE) in adult [place] LUPUS ANTICOAGULANT PROFILE Routine 07/14/2024 10:01 AM EDT Systemic lupus erythematosus (SLE) in adult [place] RPR WITH REFLEX TO TITER Routine 07/14/2024 10:01 AM EDT Systemic lupus erythematosus (SLE) in adult [place] SEDIMENTATION RATE, AUTOMATED Routine 07/14/2024 10:01 AM EDT Systemic lupus erythematosus (SLE) in adult ([facility] C-REACTIVE PROTEIN, PLASMA Routine 07/14/2024 10:01 AM EDT Systemic lupus erythematosus (SLE) in adult ([facility] DOUBLE-STRANDED DNA (DSDNA) ANTIBODY, IGG BY IFA (SO) Routine 07/14/2024 10:01 AM EDT Systemic lupus erythematosus (SLE) in adult ([facility] THIOPURINE METABOLITES (SO) Routine 07/14/2024 10:01 AM EDT Systemic lupus erythematosus (SLE) in adult ([facility] COMPREHENSIVE METABOLIC PANEL, PLASMA Routine 07/14/2024 10:01 AM EDT Autoimmune hepatitis ([facility]) IGG, PLASMA Routine 07/14/2024 10:01 AM EDT Autoimmune hepatitis (CMS/HCC) TSH REFLEX FT4 Routine 07/14/2024 10:01 AM EDT Other specified hypothyroidism US LIVER SCREEN Routine 07/14/2024 6:54 AM EDT Other cirrhosis of liver (CMS/HCC) HEPATITIS C ANTIBODY W/REFLEX TO HCV QUANT PCR Routine 01/21/2024 12:22 PM EST Unspecified cirrhosis of liver (CMS/HCC) from Last 3 Months or Most Recently Relevant to Health Maintenance Results * (ABNORMAL) Protime-INR (09/22/2024 10:25 AM EDT) Prothrombin Time 14.7(H) 12.0 - 14.3 sec LAB COAGULATION METHOD 09/22/2024 12:02 PM EDT [facility] INR 1.1 0.9 - 1.1 LAB COAGULATION METHOD 09/22/2024 12:02 PM EDT [facility] Blood Venous blood specimen / Unknown Venipuncture / Unknown 09/22/2024 10:25 AM EDT 09/22/2024 10:25 AM EDT Narrative [facility] - 09/22/2024 12:02 PM EDT OPTIMAL INR RANGES FOR PATIENT ON ORAL ANTICOAGULANT THERAPY Prevention of venous thromboembolism INR 2.0 to 3.0 In patients with heart disease: Atrial fibrillation INR 2.0 to 3.0 Valvular heart disease INR 2.0 to 3.0 Tissue heart valves INR 2.0 to 3.0 Mechanical prosthetic valves INR 2.5 to 3.5 Prevention of recurrent [place] INR 2.5 to 3.5 us Bjorn Cano MD LAB BLOOD ORDERABLES Final Resul t [facility] [address] [place] [address] * (ABNORMAL) CBC and differential (09/22/2024 10:25 AM EDT) WBC Count 5.85 3.70 - 10.30 10*3/uL LAB HEMATOLOGY METHOD 09/22/2024 12:24 PM EDT [facility] RBC Count 4.69 4.60 - 6.10 10*6/uL LAB HEMATOLOGY METHOD 09/22/2024 12:24 PM EDT [facility] HGB 14.8 13.7 - 17.5 g/dL LAB HEMATOLOGY METHOD 09/22/2024 12:24 PM EDT [facility] HCT 44.6 40.0 - 51.0 % LAB HEMATOLOGY METHOD 09/22/2024 12:24 PM EDT [facility] Platelet Count 128(L) 155 - 369 10*3/uL LAB HEMATOLOGY METHOD 09/22/2024 12:24 PM EDT [facility] MCV 95 79 - 98 fL LAB HEMATOLOGY METHOD 09/22/2024 12:24 PM EDT [facility] MCH 31.6 26.0 - 32.0 pg LAB HEMATOLOGY METHOD 09/22/2024 12:24 PM EDT [facility] MCHC 33.2 30.7 - 35.5 g/dL LAB HEMATOLOGY METHOD 09/22/2024 12:24 PM EDT [facility] RDW 14.2 11.5 - 14.5 % LAB HEMATOLOGY METHOD 09/22/2024 12:24 PM EDT [facility] MPV 10.6 8.8 - 12.5 fL LAB HEMATOLOGY METHOD 09/22/2024 12:24 PM EDT [facility] nRBC 0.0 <=0.0 per 100 WBCs LAB HEMATOLOGY METHOD 09/22/2024 12:24 PM EDT [facility] Differential Type Automated LAB HEMATOLOGY METHOD 09/22/2024 12:24 PM EDT [facility] Neutrophils % 61 % LAB HEMATOLOGY METHOD 09/22/2024 12:24 PM EDT [facility] Lymphocytes % 27 % LAB HEMATOLOGY METHOD 09/22/2024 12:24 PM EDT [facility] Monocytes % 9 % LAB HEMATOLOGY METHOD 09/22/2024 12:24 PM EDT [facility] Eosinophils % 2 % LAB HEMATOLOGY METHOD 09/22/2024 12:24 PM EDT [facility] Basophils % 1 % LAB HEMATOLOGY METHOD 09/22/2024 12:24 PM EDT [facility] Immature Granulocytes % 0 % LAB HEMATOLOGY METHOD 09/22/2024 12:24 PM EDT [facility] Neutrophils Absolute 3.54 1.60 - 6.10 10*3/uL LAB HEMATOLOGY METHOD 09/22/2024 12:24 PM EDT [facility] Lymphocytes Absolute 1.60 1.20 - 3.90 10*3/uL LAB HEMATOLOGY METHOD 09/22/2024 12:24 PM EDT [facility] Monocytes Absolute 0.55 0.30 - 0.90 10*3/uL LAB HEMATOLOGY METHOD 09/22/2024 12:24 PM EDT [facility] Eosinophils Absolute 0.11 0.00 - 0.50 10*3/uL LAB HEMATOLOGY METHOD 09/22/2024 12:24 PM EDT [facility] Basophils Absolute 0.04 0.00 - 0.10 10*3/uL LAB HEMATOLOGY METHOD 09/22/2024 12:24 PM EDT [facility] Immature Granulocytes Absolute 0.01 0.00 - 0.06 10*3/uL LAB HEMATOLOGY METHOD 09/22/2024 12:24 PM EDT [facility] Blood Venous blood specimen / Unknown Venipuncture / Unknown 09/22/2024 10:25 AM EDT 09/22/2024 10:25 AM EDT Narrative [facility] - 09/22/2024 12:24 PM EDT Therapeutic decision making should be based on absolute values, rather than percentages. us Bjorn Cano MD LAB BLOOD ORDERABLES Final Resul t [facility] [address] [place] [address] * (ABNORMAL) IgG (09/22/2024 10:25 AM EDT) Only the most recent of3 resultswithin the time period is included. IGG 1,608(H) 720 - 1,589 mg/dL 09/22/2024 12:25 PM EDT [facility] Blood Venous blood specimen / Unknown Venipuncture / Unknown 09/22/2024 10:25 AM EDT 09/22/2024 10:25 AM EDT us Bjorn Cano MD LAB BLOOD ORDERABLES Final Resul t [facility] [address] [place] [address] * (ABNORMAL) Comprehensive metabolic panel (09/22/2024 10:25 AM EDT) Only the most recent of3 resultswithin the time period is included. Glucose, Plasma 93 74 - 99 mg/dL 09/22/2024 11:58 AM EDT [facility] BUN, Plasma 23 8 - 23 mg/dL 09/22/2024 11:58 AM EDT [facility] Creatinine, Plasma 0.93 0.70 - 1.20 mg/dL 09/22/2024 11:58 AM EDT [facility] BUN/Creatinine Ratio 25 09/22/2024 11:58 AM EDT [facility] Sodium, Plasma 140 136 - 145 mmol/L 09/22/2024 11:58 AM EDT [facility] Potassium, Plasma 4.4 3.6 - 4.9 mmol/L 09/22/2024 11:58 AM EDT [facility] Chloride, Plasma 103 97 - 107 mmol/L 09/22/2024 11:58 AM EDT [facility] CO2, Plasma 28 22 - 29 mmol/L 09/22/2024 11:58 AM EDT [facility] Anion Gap 9 6 - 16 mmol/L 09/22/2024 11:58 AM EDT [facility] Total Calcium, Plasma 9.9 8.9 - 10.2 mg/dL 09/22/2024 11:58 AM EDT [facility] Total Protein 7.2 6.3 - 7.9 g/dL 09/22/2024 11:58 AM EDT [facility] Albumin, Plasma 4.2 3.5 - 5.2 g/dL 09/22/2024 11:58 AM EDT [facility] AST, Plasma 95(H) 10 - 50 U/L 09/22/2024 11:58 AM EDT [facility] ALT, Plasma 115(H) 10 - 50 U/L 09/22/2024 11:58 AM EDT [facility] Alkaline Phosphatase, Plasma 117(H) 40 - 115 U/L 09/22/2024 11:58 AM EDT [facility] Total Bilirubin, Plasma 0.9 0.2 - 1.1 mg/dL 09/22/2024 11:58 AM EDT [facility] eGFRcr 85.6 mL/min/1.7 3m*2 09/22/2024 11:58 AM EDT [facility] Comment:Reported eGFRcr in m L/min/1.73m2 is based the CKD-EPI 2020 equation that does not use a race coefficient. Blood Venous blood specimen / Unknown Venipuncture / Unknown 09/22/2024 10:25 AM EDT 09/22/2024 10:25 AM EDT Bjorn Cano MD LAB BLOOD ORDERABLES Final Resul t Performing Organization Address [facility] Co de Phone Number [facility] [address] [place] [address] * COMPLETE METABOLIC PROFILE (CMP) (07/25/2024 4:15 PM EDT) Jenny Alberto MD LAB BLOOD ORDERABLES Final Result * CBC W/DIFF (07/25/2024 7:28 AM EDT) Jenny Alberto MD LAB BLOOD ORDERABLES Final Result * RPR With Reflex to Titer (07/14/2024 10:01 AM EDT) Rapid Plasma Reagin Nonreactive Non Reactive 07/15/2024 12:40 AM EDT [facility] Blood Venous blood specimen / Unknown Venipuncture / Unknown 07/14/2024 10:01 AM EDT 07/14/2024 10:01 AM EDT us Fabby Paige MD LAB BLOOD ORDERABLES Fi nal Result Performing Organization Address [facility] Co de Phone Number [facility] [address] [place] [address] * Anti-Beta 2 Glycoprotein, IgG and IgM (07/14/2024 10:01 AM EDT) Anti-Beta 2 Glycoprotein 1, IgG <1.4 <20.0 U/mL 07/14/2024 2:12 PM EDT [facility] Anti-Beta 2 Glycoprotein IgG Interpretation Negative Negative 07/14/2024 2:12 PM EDT [facility] Anti-Beta 2 Glycoprotein 1, IgM 12.4 <20.0 U/mL 07/14/2024 2:12 PM EDT [facility] Anti-Beta 2 Glycoprotein IgM Interpretation Negative Negative 07/14/2024 2:12 PM EDT [facility] Blood Venous blood specimen / Unknown Venipuncture / Unknown 07/14/2024 10:01 AM EDT 07/14/2024 10:01 AM EDT Fabby Paige MD LAB BLOOD ORDERAB[place] [address] * TSH Reflex FT4 (07/14/2024 10:01 AM EDT) Thyroid Stimulating Hormone, Plasma 2.24 0.40 - 4.20 uIU/mL 07/14/2024 11:20 AM EDT [facility] Blood Venous blood specimen / Unknown Venipuncture / Unknown 07/14/2024 10:01 AM EDT 07/14/2024 10:01 AM EDT Jenny Alberto MD LAB BLOOD [place]AB[place] [address] * Beta-2 Glycoprotein 1 Antibody, IgA (SO) (07/14/2024 10:01 AM EDT) [id number] 1, IgA Antibody <10 <=20 BISI 07/16/2024 3:02 AM EDT [facility] ([facility]) Serum 07/14/2024 10:0 1 AM EDT 07/14/2024 10:01 AM EDT Narrative [facility] [[email or web address]] [facility] - 07/16/2024 3:02 AM EDT Performed By: [facility] [address] [place] [address] Cardiology Fellow: Jos Thompson MD, PhD CLIA Number: [id number] Fabby Paige MD LAB BLOOD ORDERABLES Fi nal Result [facility]) [address] [place] [address] * Thiopurine Metabolites (07/14/2024 10:01 AM EDT) THIOPURINE METABOLITES 07/18/2024 10:33 AM EDT [employer]) 6 TGN <4 230 - 400 pmole/8X 10E8 RBC 07/18/2024 10:33 AM EDT [facility]) 6 TGN Results Assessment:CHANELL G Not Quantifiable. Lower Likelihood of Response 07/18/2024 10:33 AM EDT [facility]) 6 MMPN <274 <5700 pmole/8X 10E8 RBC 07/18/2024 10:33 AM EDT [facility]) 6 MMPN Results Assessment: Not Quantifiable. Lower Risk of Hepatotoxicity 07/18/2024 10:33 AM EDT [facility]) Blood Venous blood specimen / Unknown Venipuncture / Unknown 07/14/2024 10:01 AM EDT 07/14/2024 10:01 AM EDT Narrative [facility]) - 07/18/2024 10:33 AM EDT Test performed at [employer], [place], [place]. Fabby Paige MD LAB BLOOD ORDERABLES Fi nal Result [facility]) [address] [facility] [place] [address] * Anticardiolipin IgG and IgM (07/14/2024 10:01 AM EDT) IgG Anticardiolipin <1.60 <20.00 GPL Units/mL 07/14/2024 2:12 PM EDT [facility] Anticardiolipin IgG Interpretation Negative Negative 07/14/2024 2:12 PM EDT [facility] IgM Anticardiolipin 11.50 <20.00 MPL Units/mL 07/14/2024 2:12 PM EDT [facility] Anticardiolipin IgM Interpretation Negative Negative 07/14/2024 2:12 PM EDT [facility] Blood Venous blood specimen / Unknown Venipuncture / Unknown 07/14/2024 10:01 AM EDT 07/14/2024 10:01 AM EDT Fabby Paige MD LAB BLOOD ORDERABLES Fi nal Result [facility] [address] [place] [address] * (ABNORMAL) Anti-DNA antibody, double-stranded (07/14/2024 10:01 AM EDT) Double-Strande d DNA (dsDNA) Ab IgG IFA 1:640(H) <1:10 07/17/2024 3:12 PM EDT [facility] [email or web address]] LABORATORY ([employer]) Blood Venous blood specimen / Unknown Venipuncture / Unknown 07/14/2024 10:01 AM EDT 07/14/2024 10:01 AM EDT Narrative [facility] [email or web address]] LABORATORY ([facility]) - 07/17/2024 3:12 PM EDT INTERPRETIVE INFORMATION: [...] recommendations for testing may be found at [email or web address]/[email or web address]-[email or web address]. Performed By: [facility] [address] [place] [address] Cardiology Fellow: Jos Thompson MD, PhD CLIA Number: [id number] Fabby Paige MD LAB BLOOD ORDERABLES Fi nal Result Performing Organization Address [facility] Co de Phone Number [facility] [email or web address] [address] * Cardiolipin antibody, IgA (SO) (07/14/2024 10:01 AM EDT) Pathologist [facility] Cardiolipin Antibody IgA <10 <=11 APL 07/16/2024 5:[address] [facility] Blood Venous blood specimen / Unknown Venipuncture / Unknown 07/14/2024 10:01 AM EDT 07/14/2024 10:01 AM EDT Narrative [facility]) - 07/16/2024 5:53 PM EDT INTERPRETIVE INFORMATION: Cardiolipin Antibodies, IgA <=11 APL: Negative 12-19 APL: Indeterminate 20-80 APL: Low to Moderately Positive 81 APL or above: High Positive Performed By: [facility] [address] [place] [address] Cardiology Fellow: Jos Thompson MD, PhD CLIA Number: [id number] Fabby Paige MD LAB BLOOD ORDERABLES Fi nal Result Performing Organization Address [facility] Co de Phone Number [facility] [place] [email or web address] [address] * Lupus Anticoagulant Profile (07/14/2024 10:01 AM EDT) Lupus Anticoagulant Result Lupus anticoagulant (LA) not detected by either LA-sensitive aPTT or VVT assays. If clinical suspicion for antiphospholipid syndrome is high, consider testing for antibodies against cardiolipin and [id number] n I. 07/15/2024 10:39 AM EDT [facility] aPTT Lupus Anticoagulant Sensitive 34.7 <=41.0 sec LAB COAGULATION METHOD 07/15/2024 10:39 AM EDT [facility] DRVVT Screen 35.4 sec LAB COAGULATION METHOD 07/15/2024 10:39 AM EDT [facility] DRVVT Screen Ratio 0.89 <1.20 LAB COAGULATION METHOD 07/15/2024 10:39 AM EDT [facility] Blood Venous blood specimen / Unknown Venipuncture / Unknown 07/14/2024 10:01 AM EDT 07/14/2024 10:01 AM EDT Fabby Paige MD LAB BLOOD ORDERABLES Fi nal Result Performing Organization Address City/[facility]/ZIP Co de Phone Number [facility] [address] [place] [address] * Sedimentation Rate, Automated (07/14/2024 10:01 AM EDT) Sedimentation Rate 17 <20 mm/hr 2024 11:00 AM EDT [facility] Blood Venous blood specimen / Unknown Venipuncture / Unknown 07/14/2024 10:01 AM EDT 07/14/2024 10:01 AM EDT Fabby Paige MD LAB BLOOD ORDERABLES Fi nal Result [facility] [address] [place] [address] * C3 complement (07/14/2024 10:01 AM EDT) C3 Complement 99 84 - 166 mg/dL 07/14/2024 12:57 PM EDT [facility] Blood Venous blood specimen / Unknown Venipuncture / Unknown 07/14/2024 10:01 AM EDT 07/14/2024 10:01 AM EDT Fabby Paige MD LAB BLOOD ORDERABLES Fi nal Result Performing Organization Address [facility] Co de Phone Number [facility] [address] [place] [address] * C4 complement (07/14/2024 10:01 AM EDT) C4 Complement 13 13 - 36 mg/dL 07/14/2024 12:57 PM EDT [facility] Blood Venous blood specimen / Unknown Venipuncture / Unknown 07/14/2024 10:01 AM EDT 07/14/2024 10:01 AM EDT Fabby Paige MD LAB BLOOD ORDERABLES Fi nal Result Performing Organization Address [facility] [place] [address] * C-reactive protein (07/14/2024 10:01 AM EDT) CRP, Plasma <3.0 <=8.0 mg/L 07/14/2024 11:20 AM EDT [facility] Blood Venous blood specimen / Unknown Venipuncture / Unknown 07/14/2024 10:01 AM EDT 07/14/2024 10:01 AM EDT Narrative [facility] - 07/14/2024 11:20 AM EDT This CRP test is appropriate for assessment of infection, systemic inflammation and/or tissue injury. To assess cardiovascular disease risk order high sensitivity CRP (CRPH). Fabby Paige MD LAB BLOOD ORDERABLES Fi nal Result Performing Organization Address [facility] Co de Phone Number [facility] [address] [place] [address] * US Liver Screen (07/14/2024 6:54 AM [...] are based on Ultrasound LI-RADS version 2017. [email or web address]://www.acr.org/-/media/[email or web address]/Files/RADS/LI-RADS/NR-PJWM-FX-Algorithm-Portrait -2017 .pdf CRITICAL RESULT: No. COMMUNICATION: Per [...] recommendations are based on UltrasoundLI-RADS version 2017. https://www.acr.org/-/media/ACR/Files/RADS/LI-RADS/MY-YVZJ-JC-Algorithm-Portrait -2017 .pdf CRITICAL RESULT: No. COMMUNICATION: Per this written report. By electronically signing this report, I, the attending physician, attestthat I have personally reviewed the images/data for the aboveexamination(s) and agree with the final edited report. Drafted by João Salinas DO on 07/17/2024 8:24 AM Final report signed by America Rodney DO on 07/17/2024 10:52 AM Jenny Alberto MD IMG US PROCEDURES Final Re sult * Hepatitis C antibody (01/21/2024 12:22 PM EST) Hepatitis C Antibody Negative Negative 01/21/2024 3:15 PM EST [facility] Blood Venous blood specimen / Unknown Venipuncture / Unknown 01/21/2024 12:22 PM EST 01/21/2024 12:23 PM EST us Jenny Alberto MD LAB BLOOD ORDERABLES Final Result [facility] [address] [place] [address] from Last 3 Months or Most Recently Relevant to Health Maintenance Insurance [facility] MEDIC[facility] Care Teams Director Of National Sales Relationship Specialty Start Date End Date Luis Lawson MD [address] [place] [address] [address] [place] [address] PCP - General 02/25/24
--- OUTSIDE RECORDS SUMMARY | 2024-10-08 07:18 | XMS_ITS | Encounter Summary ---
Author Organization [facility] Address [address] [place] [address] Care Team Providers Care Web Content Developer Name Role Phone Luis Lawson MD Primary Care Provider [phone] Encounter Details Date Type Department Care Team (Latest Contact Info) Description 09/22/2024 Travel Social History Tobacco Use Types Packs/Day [...] television Not at all 09/22/2024 9:08 AM EDT Harsha Reina Moving or speaking so slowly that other people could have noticed? Or the opposite - being so fidgety or restless that you have been moving around a lot more than usual. Not at all 09/22/2024 9:08 AM JAREDT Harsha Reina Thoughts that you would be b meredith off or hurting yourself in some way Not at all 09/22/2024 9:08 AM JAREDT Harsha Reina Patient Health Questionnaire -9 Score [...] Harsha Reina documented as of this encounter Plan of Treatment Upcoming Encounters Date Type Department Care Team (Late st Contact Info) Description 11/03/2024 8:40 AM EDT Office Visit [facility] Medicine Specialties [address] [place] [address] Jenny Alberto MD [address] [place] [address] 01/15/2025 10:10 AM EST Office Visit [facility] Medicine Specialties [address], [address] [place] [address] Yana Spence MD [address] [place] [address] documented as of this encounter [...] documented as of this encounter Care Teams Web Content Developer Relationship Specialty Start Date End Date Luis Lawson MD [address] [place] [address] PCP - General 02/25/24 documented as of this encounter
--- OUTSIDE RECORDS SUMMARY | 2024-10-08 07:18 | XMS_ITS | Encounter Summary ---
Author Organization Healthcare Address [address] [place] [address] Care Team Providers Care Staff Registered Nurse Name Role Phone Luis Lawson MD Primary Care Provider [phone] Encounter Details Date Type Department Care Team (Late st Contact Info) Description 07/28/2024 Results Follow-Up [facility] Medicine Specialties [address], [address] [place] [address] Jenny Alberto MD [address] [place] [address] Social History Tobacco Use Types [...] Description 11/03/2024 8:40 AM EDT Office Visit [facility] Medicine Specialties [address], [address] [place] [address] Jenny Alberto MD [address] [place] [address] 01/15/2025 10:10 AM EST Office Visit [facility] Medicine Specialties [address], [address] [place] [address] Yana Spence MD [address] [place] [address] documented as of this encounter [...] documented as of this encounter Care Teams Staff Registered Nurse Relationship Specialty Start Date End Date Luis Lawson MD [address] [place] [address] PCP - General 02/25/24 documented as of this encounter
--- OUTSIDE RECORDS SUMMARY | 2024-10-08 07:18 | XMS_ITS | Encounter Summary ---
Author Organization Healthcare Address [address] [place] [address] Care Team Providers Care Wrapper Selector Name Role Phone Luis Lawson MD Primary Care Provider [phone] Encounter Details Date Type Department Care Team (Late Contact Info) Description 08/29/2024 Orders Only [facility] Medicine Specialties [address], [address] [place] [address] Caroline Tsang RN Autoimmune hepatitis (CMS/HCC) Social History Tobacco Use [...] Description 11/03/2024 8:40 AM EDT Office Visit [facility] Medicine Specialties [address], [address] [place] [address] Jenny Alberto MD [address] [place] [address] 01/15/2025 10:10 AM EST Office Visit [facility] Medicine Specialties [address], [address] [place] [address] Yana Spence MD [address] [place] [address] documented as of this encounter Procedures Procedure Name Priority Date/Time Associated Diagnosis Comments COMPREHENSIVE METABOLIC PANEL, PLASMA Routine 08/29/2024 3:23 PM EDT Autoimmune hepatitis (CMS/HCC) documented in this encounter Results * Comprehensive Metabolic Panel, Plasma (08/29/2024 3:23 PM EDT) Blood Venous blood specimen / Unknown us Jenny Alberto MD LAB BLOOD ORDERABLES Final Result [facility]TER[facility] LAB documented in this encounter Visit Diagnoses Diagnosis [...] documented as of this encounter Care Teams Wrapper Selector Relationship Specialty Start Date End Date Luis Lawson MD [address] [place] [address] PCP - General 02/25/24 documented as of this encounter
--- OUTSIDE RECORDS SUMMARY | 2024-10-08 07:18 | XMS_ITS | Encounter Summary ---
Author Organization Healthcare Address [address] [place] [address] Care Team Providers Care Machine Tool Mechanic Name Role Phone Luis Lawson MD Primary Care Provider [phone] Encounter Details Date Type Department Care Team (Late st Contact Info) Description 07/16/2024 Results Follow-Up [facility] Trans[facility] Center [address] [facility] [address] [place] [address] Jenny Alberto MD [address] [facility] [address] [place] [address] Social History Tobacco Use Types [...] Description 11/03/2024 8:40 AM EDT Office Visit [facility] Medicine Specialties [address], [address] [place] [address] Jenny Alberto MD [address] [place] [address] 01/15/2025 10:10 AM EST Office Visit [facility] Medicine Specialties [address], [address] [place] [address] Yana Spence MD [address] [place] [address] documented as of this encounter [...] documented as of this encounter Care Teams Machine Tool Mechanic Relationship Specialty Start Date End Date Luis Lawson MD [address] [place] [address] PCP - General 02/25/24 documented as of this encounter
--- OUTSIDE RECORDS SUMMARY | 2024-10-08 07:18 | XMS_ITS | Encounter Summary ---
Author Organization Healthcare Address [address] [place] [address] Care Team Providers Care Chief Building Inspector Name Role Phone Luis Lawson MD Primary Care Provider [phone] Reason for Referral * Genetic Testing (Routine) - Authorized Specialty Diagnoses / Procedures Referred By Contac t Referred To Contact Diagnoses Autoimmune hepatitis (CMS/HCC) Procedures IgG Bjorn Cano MD [id number] [place] [address] Phone: tel: fax: Referral ID Status Reason Start Date Expiration Date V isits Requested Visits Authorized [id number] Authorized 09/22/2024 03/24/2026 1 1 Encounter Details Date Type Department Care Team (Late st Contact Info) Description 09/22/2024 Results Follow-Up [facility] Medicine Specialties [address], [address] [place] [address] Bjorn Cano MD [address] [place] [address] Social History Tobacco Use Types [...] things Not at all 09/22/2024 9:08 AM EDT Harsha Reina Feeling down, depressed, or hopeless [...] Questionnaire -9 Score 0 09/22/2024 9:08 AM EDT Harsha Reina * If you checked off [...] Miscellaneous Notes * Result Encounter Note - Bjorn Cano MD - 09/22/2024 2:42 PM EDT AST, ALT, and IgG have increased since August. Concerning for AIH flare. Discussed with Dr. Alberto. Start prednisone 30 mg and myfortic 180 mg BID. Repeat labs in 2 weeks. Will determine taper plan pending repeat labs. Called patient to review results and medication changes. Bjorn Cano MD Hepatology Fellow documented in this encounter Plan of Treatment Upcoming Encounters Date Type Department Care Team (Late st Contact Info) Description 11/03/2024 8:40 AM EDT Office Visit [facility] Medicine Specialties [address], [address] [place] [address] Jenny Alberto MD [address] [facility] [address] [place] [address] 01/15/2025 10:10 AM EST Office Visit [facility] Medicine Specialties [address], [address] [place] [address] Yana Spence MD [address] [place], [place] [id number] Scheduled Orders Name Type Priority Associated Diagnoses Orde r Schedule Comprehensive metabolic panel Lab Routine Autoimmune hepatitis (CMS/HCC) Expected: 10/06/2024 (Approximate), Expires: 03/26/2026 CBC and differential Lab Routine Autoimmune hepatitis (CMS/HCC) Expected: 10/06/2024 (Approximate), Expires: 03/26/2026 Protime-INR Lab Routine Autoimmune hepatitis (CMS/HCC) Expected: 10/06/2024 (Approximate), Expires: 03/26/2026 IgG Lab Routine Autoimmune hepatitis (CMS/HCC) Expected: 10/06/2024 (Approximate), Expires: 03/26/2026 documented as of this encounter Visit Diagnoses Diagnosis Autoimmune hepatitis (CMS/HCC)- Primary Autoimmune hepatitis documented in this encounter Additional Health Concerns Assessment Noted Time PHQ-9 Depression Total Score: 0 09/23/19 25 9:08 AM EDT A fall risk assessment has been complete d for the patient 09/22/2024 9:09 AM EDT A Body Mass Index follow-up plan has been documented for the patient 09/23/2024 1:05 AM EDT documented as of this encounter Care Teams Chief Building Inspector Relationship Specialty Start Date End Date Luis Lawson MD [address] [place] [address] PCP - General 02/25/24 documented as of this encounter
[2024-10-08 08:29] LABS: Hematocrit 43.9 % (42.0-52.0); Hemoglobin 14.6 g/dL (14.1-18.0); Immature Granulocytes % 0.3 %; Mean Corpuscular HGB Conc 33.3 g/dL (31.8-35.4); Mean Corpuscular Hemoglobin 31.2 pg (27.0-31.2); Mean Corpuscular Volume 93.8 fl (80-94); Nucleated Red Blood Cells % 0 %; Platelet Count 141 K/mm3 (142-424); Red Blood Count 4.68 M/mm3 (4.60-6.20); Red Cell Distribution Width-SD 49.6 fL; White Blood Count 7.6 K/mm3 (4.8-10.8)
[2024-10-08 08:56] LABS: Alanine Aminotransferase 98 U/L (12-78); Albumin Level 4.1 g/dl (3.5-5.0); Albumin/Globulin Ratio 1.5 (1.1-1.8); Alkaline Phosphatase 82 U/L (38-126); Anion Gap 10.4 mEq/L (5-15); Aspartate Amino Transferase 62 U/L (17-59); Bilirubin,Total 0.8 mg/dl (0.2-1.3); Blood Urea Nitrogen 21 mg/dl (9-20); Calcium 9.7 mg/dl (8.4-10.2); Carbon Dioxide 30 mmol/L (22.0-30.0); Chloride 103 mmol/L (98-107); Creatinine,Serum 1.00 mg/dl (0.66-1.25); Estimated Glomerular Filt Rate 73 ml/min (>60); GFR (African American) 88 ML/MIN (>60); Globulin 2.7 g/dL (1.3-3.2); Glucose 100 mg/dl (74-100); Potassium 4.4 mmoL/L (3.5-5.1); Sodium 139 mmol/L (136-145); Total Protein,Serum 6.8 g/dl (6.3-8.2)
[2024-10-09 07:11] LABS: Immunoglobulin G, Qn 1455 mg/dL (603-1613)
== END 2024-10-08 23:59 | disposition home or self-care (01) ==
LOC: LAB 07:16
PROVIDERS: PCP Family Medicine; Visit Provider Internal Medicine Gastroenterology
DX: K75.4 Autoimmune hepatitis (principal)
CPT/HCPCS: 36415; 80053; 82784; 85025

== ENCOUNTER 2024-10-10 03:58 | Emergency (ER) | payer MEDICARE, SELFPAY ==
--- OUTSIDE RECORDS SUMMARY | 2007-02-05 06:39 | XMS_ITS | Continuity of Care Document ---
Author Name DOD-KS Organization D[facility] Care Team Providers Care Nickel Plant Operator Name Role Phone [facility] Unavailable Unavailable Immunizations Combined list of available immunizations from the Department of Defense and Veterans Affairs facilities. Immunization Series Date Given Administered By Site Reaction Lot Number CVX Code Drug Brim Welt Sewing Machine Operator Status Comments Source FLU,3 YRS (HISTORICAL) 2006 88 complet [facility] [place] [facility]
--- OUTSIDE RECORDS SUMMARY | 2024-07-14 09:00 | XMS_ITS | Encounter Summary ---
Author Organization [facility] Address [address] [id number] Care Team Providers Care Phlebotomist Medical Lab Assistant Name Role Phone Luis Lawson MD Primary Care Provider [phone] Reason for Referral * Genetic Testing (Routine) - Authorized Specialty Diagnoses / Procedures Referred By Contac t Referred To Contact Lab Diagnoses Autoimmune hepatitis (CMS/HCC) Procedures IgG, Plasma Jenny Alberto MD [address] [address] Phone: tel: fax: Referral ID Status Reason Start Date Expiration Date V isits Requested Visits Authorized [id number] Authorized 07/14/2024 01/13/2026 1 1 * Consultation (Routine) - Authorized Specialty Diagnoses / Procedures Referred By Contac t Referred To Contact Diagnoses Autoimmune hepatitis (CMS/HCC) Nausea Jenny Alberto MD [address] [address] Phone: tel: fax: Referral ID Status Reason Start Date Expiration Date V isits Requested Visits Authorized [id number] Authorized 07/14/2024 01/13/2026 1 1 * Genetic Testing (Routine) - Closed Specialty Diagnoses / Procedures Referred By Contac t Referred To Contact Lab Diagnoses Autoimmune hepatitis (CMS/HCC) Procedures IgG, Plasma Jenny Alberto MD [address] [facility] [address] [place] [address] Phone: tel: fax: Referral ID Status Reason Start Date Expiration Date Visits Re quested Visits Authorized [id number] Closed 07/14/2024 01/13/2026 1 1 Reason for Visit * Reason Comments Nausea and vomiting, unspecified vomitin g type Autoimmune hepatitis (CMS/HCC) Encounter Details Date Type Department Care Team (Late st Contact Info) Description 07/14/2024 9:00 AM EDT Office Visit [place] [facility] [address] [place] [address] Jenny Alberto MD [address] [facility] [address] [place] [address] Autoimmune hepatitis (CMS/HCC) (Primary Dx); Nausea; Other specified hypothyroidism; Encounter for penitentiary current use of azathioprine; On prednisone therapy [...] diverticulitis, in May- went to ER In [facility] 06/05/24 No abd pain,hematochezia Reports improvement of nausea, but still has nausea, thus he stopped azathioprine on his own. He has been off azathioprine for 2 weeks EGD- I reviewed report of EGD done by Dr. Cabezas 06/02/24 at [place]: Normal esophagus PHG- gastric biopsies: reactive gastropathy [...] - TSH Reflex FT4; Future Encounter for penitentiary current use of azathioprine On prednisone therapy [...] has appointment this week with (surgeon in [place]) who will be coordinating with Dr. Cabezas [...] Description 11/03/2024 8:40 AM EDT Office Visit [facility] Medicine Specialties [address] [place] [address] Jenny Alberto MD [address] [facility] [address] [place] [address] 11/05/2024 9:00 AM EDT Office Visit [facility] Medicine Specialties [address] [place] [address] Myles Dyer MD [address] [facility] [address] [place] [address] Scheduled Orders Name Type Priority Associated Diagnoses [...] - 4.20 uIU/mL 07/14/2024 11:20 AM EDT [facility] Blood Venous blood specimen / Unknown Venipuncture / Unknown 07/14/2024 10:01 AM EDT 07/14/2024 10:01 AM EDT Jenny Alberto MD LAB BLOOD ORDERABLES Final Result [facility] [address] [place] [address] * IgG, Plasma (07/14/2024 10:01 AM EDT) IGG 1,222 720 - 1,589 mg/dL 07/14/2024 11:20 AM EDT [facility] Blood Venous blood specimen / Unknown Venipuncture / Unknown 07/14/2024 10:01 AM EDT 07/14/2024 10:01 AM EDT Jenny Alberto MD LAB BLOOD ORDERABLES Final Result [facility] [address] [place] [address] * (ABNORMAL) Comprehensive metabolic panel (07/14/2024 10:01 AM EDT) Glucose, Plasma 102(H) 74 - 99 mg/dL 07/14/2024 11:20 AM EDT [facility] BUN, Plasma 16 8 - 23 mg/dL 07/14/2024 11:20 AM EDT [facility] Creatinine, Plasma 0.81 0.70 - 1.20 mg/dL 07/14/2024 11:20 AM EDT [facility] BUN/Creatinine Ratio 07/14/2024 11:20 AM EDT [facility] Sodium, Plasma 142 136 - 145 mmol/L 07/14/2024 11:20 AM EDT [facility] Potassium, Plasma 4.0 3.6 - 4.9 mmol/L 07/14/2024 11:20 AM EDT [facility] Chloride, Plasma 106 97 - 107 mmol/L 07/14/2024 11:20 AM EDT [facility] CO2, Plasma 25 22 - 29 mmol/L 07/14/2024 11:20 AM EDT [facility] Anion Gap 11 6 - 16 mmol/L 07/14/2024 11:20 AM EDT [facility] Total Calcium, Plasma 9.6 8.9 - 10.2 mg/dL 07/14/2024 11:20 AM EDT [facility] Total Protein 7.1 6.3 - 7.9 g/dL 07/14/2024 11:20 AM EDT [facility] Albumin, Plasma 4.1 3.5 - 5.2 g/dL 07/14/2024 11:20 AM EDT [facility] AST, Plasma 30 10 - 50 U/L 07/14/2024 11:20 AM EDT [facility] ALT, Plasma 36 10 - 50 U/L 07/14/2024 11:20 AM EDT [facility] Alkaline Phosphatase, Plasma 79 40 - 115 U/L 07/14/2024 11:20 AM EDT [facility] Total Bilirubin, Plasma 0.6 0.2 - 1.1 mg/dL 07/14/2024 11:20 AM EDT [facility] eGFRcr 91.9 mL/min/1.7 3m*2 07/14/2024 11:20 AM EDT [facility] Comment:Reported eGFRcr in m L/min/1.73m2 is based the CKD-EPI 2020 equation that does not use a race coefficient. 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
--- OUTSIDE RECORDS SUMMARY | 2024-09-22 09:00 | XMS_ITS | Encounter Summary ---
Author Organization [facility] Address [address] [place] [address] Care Team Providers Care Street Contractor Name Role Phone Luis Lawson MD Primary Care Provider [phone] Reason for Referral * Consultation (Routine) - Authorized Specialty Diagnoses / Procedures Referred By Contac t Referred To Contact Diagnoses Autoimmune hepatitis (CMS/HCC) Other cirrhosis of liver (CMS/HCC) Bjorn Cano MD [address] [address] Phone: tel: fax: Referral ID Status Reason Start Date Expiration Date V isits Requested Visits Authorized [id number] Authorized 09/22/2024 03/24/2026 1 1 * Imaging (Routine) - Pending Review Specialty Diagnoses / Procedures Referred By Contac t Referred To Contact Radiology Diagnoses Other cirrhosis of liver (CMS/HCC) Procedures US Liver Screen Bjorn Cano MD [address] [address] Phone: tel: fax: Referral ID Status Reason Start Date Expiration Date V isits Requested Visits Authorized [id number] Pending Review 09/22/2024 03/24/2026 1 1 * Genetic Testing (Routine) - Closed Specialty Diagnoses / Procedures Referred By Contac t Referred To Contact Lab Diagnoses Autoimmune hepatitis (CMS/HCC) Procedures IgG Bjorn Cano MD [address] [facility] [address] [place] [address] Phone: tel: fax: Referral ID Status Reason Start Date Expiration Date Visits Re quested Visits Authorized [id number] Closed 09/22/2024 03/24/2026 1 1 Reason for Visit * Reason Comments Autoimmune Hepatitis Nausea Vomiting Encounter Details Date Type Department Care Team (Late st Contact Info) Description 09/22/2024 9:00 AM EDT Office Visit [facility] [address] [place] [address] Jenny Alberto MD [address] [facility] [address] [place] [address] Autoimmune hepatitis (CMS/HCC) (Primary Dx); [...] EGD: Completed 06/02/[address] Vargas at [place]. No EV. PHG with reactive gastropathy. The [...] Last EGD 06/02/[address] Vargas at [place]. No EV. PHG with reactive gastropathy. - [...] liver enzymes and IgG (ALT from 50s/60s [id number])- increase prednisone to 30mg/day, start myfortic 180mg [...] Description 11/03/2024 8:40 AM EDT Office Visit [facility] Medicine Specialties [address] [place] [address] Jenny Alberto MD [address] [facility] [address] [place] [address] 11/05/2024 9:00 AM EDT Office Visit [facility] Medicine Specialties [address] [place] [address] Myles Dyer MD [address] [facility] [address] [place] [address] Scheduled Orders Name Type Priority Associated Diagnoses [...] - 1,589 mg/dL 09/22/2024 12:25 PM EDT [facility] Blood Venous blood specimen / Unknown Venipuncture / Unknown 09/22/2024 10:25 AM EDT 09/22/2024 10:25 AM EDT us Bjorn Cano MD LAB BLOOD ORDERABLES Final Resul t Performing Organization Address [facility] de Phone Number [facility] [address] [place] [address] * (ABNORMAL) Protime-INR (09/22/2024 10:25 AM EDT) Prothrombin Time 14.7(H) 12.0 - 14.3 sec LAB COAGULATION METHOD 09/22/2024 12:02 PM EDT [facility] INR 1.1 0.9 - 1.1 LAB COAGULATION METHOD 09/22/2024 12:02 PM EDT [facility] Blood Venous blood specimen / Unknown Venipuncture / Unknown 09/22/2024 10:25 AM EDT 09/22/2024 10:25 AM EDT Narrative [facility] - 09/22/2024 12:02 PM EDT OPTIMAL INR RANGES FOR PATIENT ON ORAL ANTICOAGULANT THERAPY Prevention of venous thromboembolism INR 2.0 to 3.0 In patients with heart disease: Atrial fibrillation INR 2.0 to 3.0 Valvular heart disease INR 2.0 to 3.0 Tissue heart valves INR 2.0 to 3.0 Mechanical prosthetic valves INR 2.5 to 3.5 Prevention of recurrent PA INR 2.5 to 3.5 us Bjorn Cano MD LAB BLOOD ORDERABLES Final Resul t Performing Organization Address City/[facility]/ZIP Co de Phone Number [facility] [address] [place] [phone] * (ABNORMAL) CBC and differential (09/22/2024 10:25 AM EDT) [facility] Signature WBC Count 5.85 3.70 - 10.30 10*3/uL LAB HEMATOLOGY METHOD 09/22/2024 12:24 PM EDT [facility] RBC Count 4.69 4.60 - 6.10 10*6/uL LAB HEMATOLOGY METHOD 09/22/2024 12:24 PM EDT [facility] HGB 14.8 13.7 - 17.5 g/dL LAB HEMATOLOGY METHOD 09/22/2024 12:24 PM EDT [facility] HCT 44.6 40.0 - 51.0 % LAB HEMATOLOGY METHOD 09/22/2024 12:24 PM EDT [facility] Platelet Count 128(L) 155 - 369 10*3/uL LAB HEMATOLOGY METHOD 09/22/2024 12:24 PM EDT [facility] MCV 95 79 - 98 fL LAB HEMATOLOGY METHOD 09/22/2024 12:24 PM EDT [facility] MCH 31.6 26.0 - 32.0 pg LAB HEMATOLOGY METHOD 09/22/2024 12:24 PM EDT [facility] MCHC 33.2 30.7 - 35.5 g/dL LAB HEMATOLOGY METHOD 09/22/2024 12:24 PM EDT [facility] RDW 14.2 11.5 - 14.5 % LAB HEMATOLOGY METHOD 09/22/2024 12:24 PM EDT [facility] MPV 10.6 8.8 - 12.5 fL LAB HEMATOLOGY METHOD 09/22/2024 12:24 PM EDT [facility] nRBC 0.0 <=0.0 per 100 WBCs LAB HEMATOLOGY METHOD 09/22/2024 12:24 PM EDT [facility] Differential Type Automated LAB HEMATOLOGY METHOD 09/22/2024 12:24 PM EDT [facility] Neutrophils % 61 % LAB HEMATOLOGY METHOD 09/22/2024 12:24 PM EDT [facility] Lymphocytes % 27 % LAB HEMATOLOGY METHOD 09/22/2024 12:24 PM EDT [facility] Monocytes % 9 % LAB HEMATOLOGY METHOD 09/22/2024 12:24 PM EDT [facility] Eosinophils % 2 % LAB HEMATOLOGY METHOD 09/22/2024 12:24 PM EDT [facility] Basophils % 1 % LAB HEMATOLOGY METHOD 09/22/2024 12:24 PM EDT [facility] Immature Granulocytes % 0 % LAB HEMATOLOGY METHOD 09/22/2024 12:24 PM EDT [facility] Neutrophils Absolute 3.54 1.60 - 6.10 10*3/uL LAB HEMATOLOGY METHOD 09/22/2024 12:24 PM EDT [facility] Lymphocytes Absolute 1.60 1.20 - 3.90 10*3/uL LAB HEMATOLOGY METHOD 09/22/2024 12:24 PM EDT [facility] Monocytes Absolute 0.55 0.30 - 0.90 10*3/uL LAB HEMATOLOGY METHOD 09/22/2024 12:24 PM EDT [facility] Eosinophils Absolute 0.11 0.00 - 0.50 10*3/uL LAB HEMATOLOGY METHOD 09/22/2024 12:24 PM EDT [facility] Basophils Absolute 0.04 0.00 - 0.10 10*3/uL LAB HEMATOLOGY METHOD 09/22/2024 12:24 PM EDT [facility] Immature Granulocytes Absolute 0.01 0.00 - 0.06 10*3/uL LAB HEMATOLOGY METHOD 09/22/2024 12:24 PM EDT [facility] Blood Venous blood specimen / Unknown Venipuncture / Unknown 09/22/2024 10:25 AM EDT 09/22/2024 10:25 AM EDT Narrative [facility] - 09/22/2024 12:24 PM EDT Therapeutic decision making should be based on absolute values, rather than percentages. us Bjorn Cano MD LAB BLOOD ORDERABLES Final Resul t [facility] [address] [place] [address] * (ABNORMAL) Comprehensive metabolic panel (09/22/2024 10:25 AM EDT) Glucose, Plasma 93 74 - 99 mg/dL 09/22/2024 11:58 AM EDT [facility] BUN, Plasma 23 8 - 23 mg/dL 09/22/2024 11:58 AM EDT [facility] Creatinine, Plasma 0.93 0.70 - 1.20 mg/dL 09/22/2024 11:58 AM EDT [facility] BUN/Creatinine Ratio 25 09/22/2024 11:58 AM EDT [facility] Sodium, Plasma 140 136 - 145 mmol/L 09/22/2024 11:58 AM EDT [facility] Potassium, Plasma 4.4 3.6 - 4.9 mmol/L 09/22/2024 11:58 AM EDT [facility] Chloride, Plasma 103 97 - 107 mmol/L 09/22/2024 11:58 AM EDT [facility] CO2, Plasma 28 22 - 29 mmol/L 09/22/2024 11:58 AM EDT [facility] Anion Gap 9 6 - 16 mmol/L 09/22/2024 11:58 AM EDT [facility] Total Calcium, Plasma 9.9 8.9 - 10.2 mg/dL 09/22/2024 11:58 AM EDT [facility] Total Protein 7.2 6.3 - 7.9 g/dL 09/22/2024 11:58 AM EDT [facility] Albumin, Plasma 4.2 3.5 - 5.2 g/dL 09/22/2024 11:58 AM EDT [facility] AST, Plasma 95(H) 10 - 50 U/L 09/22/2024 11:58 AM EDT [facility] ALT, Plasma 115(H) 10 - 50 U/L 09/22/2024 11:58 AM EDT [facility] Alkaline Phosphatase, Plasma 117(H) 40 - 115 U/L 09/22/2024 11:58 AM EDT [facility] Total Bilirubin, Plasma 0.9 0.2 - 1.1 mg/dL 09/22/2024 11:58 AM EDT [facility] eGFRcr 85.6 mL/min/1.7 3m*2 09/22/2024 11:58 AM EDT [facility] Comment:Reported eGFRcr in m L/min/1.73m2 is based the CKD-EPI 2020 equation that does not use a race coefficient. Blood Venous blood specimen / Unknown Venipuncture / Unknown 09/22/2024 10:25 AM EDT 09/22/2024 10:25 AM EDT us Bjorn Cano MD LAB BLOOD ORDERABLES Final Resul t [facility] [address] [place] [address] documented in this encounter Visit Diagnoses Diagnosis [...] documented as of this encounter Care Teams Street Contractor Relationship Specialty Start Date End Date Luis Lawson MD [address] [place] [address] PCP - General 02/25/24 documented as of this encounter
--- OUTSIDE RECORDS SUMMARY | 2024-09-22 10:40 | XMS_ITS | Encounter Summary ---
Author Organization Healthcare Address [address] [place] [place] [address] Care Team Providers Care Corn Cutter Name Role Phone Luis Lawson MD Primary Care Provider Reason for Visit * Genetic Testing (Routine) - Closed Specialty Diagnoses / Procedures Referred By Contac t Referred To Contact Lab Diagnoses Autoimmune hepatitis (CMS/HCC) Procedures IgG Bjorn aCno MD [address] [place] [address] Phone: tel: fax: Referral ID Status Reason Start Date Expiration Date Visits Re quested Visits Authorized [id number] Closed 09/22/2024 03/24/2026 1 1 Encounter Details Date Type Department Care Team (Latest Contact Info) Description 09/22/2024 10:40 AM EDT [facility] [address] [place] [address] Autoimmune hepatitis (CMS/HCC) Social History Tobacco Use Types Packs/Day Years [...] things Not at all 09/22/2024 9:08 AM Harsha Brar Feeling down, depressed, or hopeless Not at all 09/22/2024 9:08 AM Harsha Brar Patient Health Questionnaire -2 Score 0 09/22/2024 9:08 AM Harsha Brar * Question Answer Date of Assessment Author Trouble falling or staying a sleep, or sleeping too much Not at all 09/22/2024 9:08 AM Harsha Brar Feeling tired or having edyta le energy [...] Questionnaire -9 Score 0 09/22/2024 9:08 AM Harsha Brar * If you checked off any problems on this questionnaire so far, Question Answer Date of Assessment Author How difficult have these problems made it for you to do your work, take care of things at home, or get along with other people? Not difficult at all 09/22/2024 9:08 AM Harsha Brar documented as of this encounter Plan of Treatment Upcoming Encounters Date Type Department Care Team (Late st Contact Info) Description 11/03/2024 8:40 AM EDT Office Visit [facility] Medicine Specialties [address] [place] [address] Jenny Alberto MD [address] [place] [address] 11/05/2024 9:00 AM EDT Office Visit [facility] Medicine Specialties [address] [place] [address] Myles Dyer MD [address] [facility] [address] [place] [address] documented as of this encounter Procedures Procedure Name Priority Date/Time Associated Diagnosis Comments PROTHROMBIN TIME(PT) / INR Routine 09/22/2024 10:25 AM EDT Autoimmune hepatitis (CMS/HCC) CBC WITH AUTO DIFFERENTIAL Routine 09/22/2024 10:25 AM EDT Autoimmune hepatitis (CMS/HCC) IGG, PLASMA Routine 09/22/2024 10:25 AM EDT Autoimmune hepatitis (CMS/HCC) COMPREHENSIVE METABOLIC PANEL, PLASMA Routine 09/22/2024 10:25 AM EDT Autoimmune hepatitis (CMS/HCC) documented in this encounter Results * (ABNORMAL) IgG (09/22/2024 10:25 AM EDT) IGG 1,608(H) 720 - 1,589 mg/dL 09/22/2024 12:25 PM EDT [facility] Blood Venous blood specimen / Unknown Venipuncture / Unknown 09/22/2024 10:25 AM EDT 09/22/2024 10:25 AM EDT Bjorn Cano MD LAB BLOOD ORDERABLES Final Resul t [facility] [address] [place] [address] * (ABNORMAL) CBC and differential (09/22/2024 10:25 [...] t [facility] [address] [place] [address] * (ABNORMAL) Protime-INR (09/22/2024 10:25 AM EDT) [...] INR 2.5 to 3.5 Prevention of recurrent NE INR 2.5 to 3.5 us Bjorn Cano MD LAB BLOOD ORDERABLES Final Resul t [facility] [address] [place] [address] * (ABNORMAL) Comprehensive metabolic panel (09/22/2024 10:25 [...] t [facility] [address] [place] [address] documented in this encounter Visit Diagnoses Diagnosis Autoimmune hepatitis (CMS/HCC) Autoimmune hepatitis documented in this encounter Additional Health Concerns Assessment Noted Time PHQ-9 Depression Total Score: 0 09/23/19 25 9:08 AM EDT A fall risk assessment has been complete d for the patient 09/22/2024 9:09 AM EDT A Body Mass Index follow-up plan has been documented for the patient 09/23/2024 1:05 AM EDT documented as of this encounter Care Teams Corn Cutter Relationship Specialty Start Date End Date Luis Lawson MD [address] [place] [id number] PCP - General 02/25/24 documented as of this encounter
[2024-10-10] VITALS (7 sets, daily range): BP systolic 149–180; BP diastolic 83–101; PULSE 61–78; RESP 14–18; TEMP 36.6; O2SAT 96–98; BMI 23.9
--- OUTSIDE RECORDS SUMMARY | 2024-10-10 04:25 | XMS_ITS | Encounter Summary ---
Author Organization [facility] Address [address] [place] [address] Care Team Providers Care Drip Molder Name Role Phone Field, Vita PAINTING Primary Care Provider Luis Lawson MD Primary Care Provider [phone] Encounter Details Date Type Department Care Team (Late st Contact Info) Description 01/23/2024 Lab Requisition [facility] [address] [place] [address] Jenny Alberto MD [address] [facility] [address] [place] [address] Elevation of levels of liver transaminase levels [...] Description 11/03/2024 8:40 AM EDT Office Visit [facility] Medicine Specialties [address] [place] [address] Jenny Alberto MD [address] [place] [address] 11/05/2024 9:00 AM EDT Office Visit [facility] Medicine Specialties [address], [address] [place] [address] Myles Dyer MD [address] [place] [address] documented as of this encounter Procedures Procedure Name Priority Date/Time Associated Diagnosis Comments SURGICAL PATHOLOGY CONSULT Routine 01/23/2024 1:42 PM EST Elevation of levels of liver transaminase levels documented in this encounter Results * Surgical Pathology Consult (01/23/2024 1:42 PM EST) Case Report Sugical Pathology Consult Case: [id number] Authorizing Provider: Jenny Alberto MD Collected: 01/23/20244 Ordering Location: [facility] Lab Received: 01/23/2024 1342 Pathologist: Nasra Nava MD Specimen: Liver, [id number] 01/24/2024 4:41 PM EST [facility] Final Diagnosis LIVER, NEEDLE CORE BIOPSY ([id number]; 08/15/2023): - CLINICOPATHOLOGIC FINDINGS CONSISTENT WITH AUTOIMMUNE HEPATITIS WITH STAGE 4 FIBROSIS (SEE COMMENT). 01/24/2024 4:41 PM EST [facility] at 1641 EST Comment [...] correlation is recommended. 01/24/2024 4:41 PM EST [facility] Clinical Information R74.01 - Elevation of levels of liver transaminase levels [ICD-10-CM] 01/24/2024 4:41 PM EST [facility] Gross Description A. [id number] Received along with a corresponding pathology report from [facility] are 3 slides labeled outside case: [id number] collected on 08/15/2023. 01/24/2024 4:41 PM EST [facility] Note: A resident was involved in the service. I attest I examined the relevant preparations for the specimens and confirmed the diagnosis or interpretation. 01/24/2024 4:41 PM EST [facility] Tissue Liver structure / Unknown 01/23/2024 1:42 PM EST 01/23/2024 1:42 PM EST us Jenny Alberto MD LAB PATHOLOGY ORDERABLES F inal Result [facility] [address] [place] [address] documented in this encounter Visit Diagnoses Diagnosis [...] documented as of this encounter Care Teams Drip Molder Relationship Specialty Start Date End Date Vita Reid APRN [address] [place] [address] PCP - General 07/23/20 02/24/24 Luis Lawson MD [address] [place] [address] [address] [place] [address] PCP - General 02/25/24 documented as of this encounter
--- OUTSIDE RECORDS SUMMARY | 2024-10-10 04:25 | XMS_ITS | Encounter Summary ---
Author Organization Healthcare Address [address] [place] [address] Care Team Providers Care Condominium Property Manager Name Role Phone Luis Lawson MD Primary Care Provider [phone] Reason for Referral * Genetic Testing (Routine) - Authorized Specialty Diagnoses / Procedures Referred By Contac t Referred To Contact Diagnoses Autoimmune hepatitis (CMS/HCC) Procedures IgG Bjorn Cano MD [id number] [place] [address] Phone: tel: fax: Referral ID Status Reason Start Date Expiration Date V isits Requested Visits Authorized [id number] Authorized 09/22/2024 03/24/2026 1 1 Encounter Details Date Type Department Care Team (Late st Contact Info) Description 09/22/2024 Results Follow-Up [facility] Medicine Specialties [address], [address] [place] [address] Bjorn Cano MD [address] [place] [address] Social History Tobacco Use Types [...] Description 11/03/2024 8:40 AM EDT Office Visit [facility] Medicine Specialties [address], [address] [place] [address] Jenny Alberto MD [address] [place] [address] 11/05/2024 9:00 AM EDT Office Visit [facility] Medicine Specialties [address], [address] [place] [address] Myles Dyer MD [address] [place] [address] Scheduled Orders Name Type Priority Associated Diagnoses [...] documented as of this encounter Care Teams Condominium Property Manager Relationship Specialty Start Date End Date Luis Lawson MD [address] [place], [place] [address] PCP - General 02/25/24 documented as of this encounter
--- OUTSIDE RECORDS SUMMARY | 2024-10-10 04:25 | XMS_ITS | Encounter Summary ---
Author Organization Healthcare Address [address] [place] [address] Care Team Providers Care Implementation Advisor Name Role Phone Luis Lawson MD Primary Care Provider [phone] Encounter Details Date Type Department Care Team (Late Contact Info) Description 08/29/2024 Orders Only [facility] Medicine Specialties [address] [place] [address] Caroline Tsang RN Autoimmune [...] [facility] Medicine Specialties [address], [address] [place] [address] Jenny Alberto MD [address] [facility] [address] [place] [address] 11/05/2024 9:00 AM EDT Office Visit [facility] Medicine Specialties [address], [address] [place] [address] Myles Dyer MD [address] [place] [address] documented as of this encounter [...] documented as of this encounter Care Teams Implementation Advisor Relationship Specialty Start Date End Date Luis Lawson MD [address] [place] [address] [address] [place] [address] PCP - General 02/25/24 documented as of this encounter
--- OUTSIDE RECORDS SUMMARY | 2024-10-10 04:25 | XMS_ITS | Encounter Summary ---
Author Organization Healthcare Address [address] [place] [address] Care Team Providers Care Air Compressor Engineer Name Role Phone Luis Lawson MD Primary Care Provider [phone] Encounter Details Date Type Department Care Team (Late st Contact Info) Description 07/16/2024 Results Follow-Up [facility] Transplant Center [address] [facility] [address] [place] [address] Jenny Alberto MD [address] [facility] [address] [place] [address] Social History Tobacco Use Types [...] Description 11/03/2024 8:40 AM EDT Office Visit [facility] Medicine Specialties [address] [place] [address] Jenny Alberto MD [address] [facility] [address] [place] [address] 11/05/2024 9:00 AM EDT Office Visit [facility] Medicine Specialties [address], [address] [place] [address] Myles Dyer MD [address] [facility] [address] [place] [address] documented as of this encounter Visit Diagnoses [...] documented as of this encounter Care Teams Air Compressor Engineer Relationship Specialty Start Date End Date Luis Lawson MD [address] [place] [address] 1 [place] [address] PCP - General 02/25/24 documented as of this encounter
--- OUTSIDE RECORDS SUMMARY | 2024-10-10 04:25 | XMS_ITS | Encounter Summary ---
Author Organization [facility] Address [address] [place] [address] Care Team Providers Care Auricular Therapist Name Role Phone Luis Lawson MD Primary Care Provider [phone] Encounter Details Date Type Department Care Team [...] Description 11/03/2024 8:40 AM EDT Office Visit [facility] Medicine Specialties [address] [place] [address] Jenny Alberto MD [address] [place] [address] 11/05/2024 9:00 AM EDT Office Visit [facility] Medicine Specialties [address] [place] [address] Myles Dyer MD [address] [place] [address] documented as of this encounter Visit Diagnoses [...] documented as of this encounter Care Teams Auricular Therapist Relationship Specialty Start Date End Date Luis Lawson MD [address] [place] [address] PCP - General 02/25/24 documented as of this encounter
--- OUTSIDE RECORDS SUMMARY | 2024-10-10 04:25 | XMS_ITS | Encounter Summary ---
Author Organization Healthcare Address [address] [place] [address] Care Team Providers Care Shell Machine Operator Name Role Phone Luis Lawson MD Primary Care Provider [phone] Encounter Details Date Type Department Care Team (Late st Contact Info) Description 09/01/2024 Telephone [facility] Medicine Specialties [address] [place] [address] Caroline Tsang, RN Social History Tobacco Use [...] to the following: Comprehensive Metabolic Panel, Plasma [[id number]] on 08/29/2024 documented in this encounter Plan of Treatment Upcoming Encounters Date Type Department Care Team (Late st Contact Info) Description 11/03/2024 8:40 AM EDT Office Visit [facility] Medicine Specialties [address] [place] [address] Jenny Alberto MD [address] [facility] [address] [place] [address] 11/05/2024 9:00 AM EDT Office Visit [facility] Medicine Specialties [address] [place] [address] Myles Dyer MD [address] [place] [address] documented as of this encounter Visit Diagnoses [...] documented as of this encounter Care Teams Shell Machine Operator Relationship Specialty Start Date End Date Luis Lawson MD [address] [place] [address] [place] [address] PCP - General 02/25/24 documented as of this encounter
--- OUTSIDE RECORDS SUMMARY | 2024-10-10 04:25 | XMS_ITS | Clinical Summary ---
Author Organization [facility] Address [address] [place] [address] Care Team Providers Care Rug Shampooer Name Role Phone Luis Lawson MD Primary Care Provider Allergies No known active allergies Medications amLODIPine [...] Description 09/22/2024 10:40 AM EDT Clinical Support [facility] [address] [place] [phone] Autoimmune hepatitis (CMS/HCC) 09/22/2024 9:00 AM EDT Office Visit [facility] [address] [place] [address] Jenny Alberto MD Autoimmune hepatitis (CMS/HCC) (Primary Dx); Other cirrhosis of liver (CMS/HCC); Nausea; Elevated liver enzymes; High total IgG; History of diverticulitis 09/22/2024 Results Follow-Up [facility] [address] [place] [address] Bjorn Cano MD 09/22/2024 Travel 09/01/2024 Telephone [facility] [address] [place] [address] Caroline Tsang, JAMES 08/29/2024 Orders Only [facility] [address], [address] [place] [address] Caroline Tsang, RN Autoimmune hepatitis (CMS/HCC) 07/30/2024 Telephone [facility] [address], [address] [place] [phone] Lori Levi RN 07/30/2024 Orders Only [facility] [address] [place] [address] Jenny Alberto MD 07/28/2024 Results Follow-Up [facility] [address], [address] [place] [address] Jenny Alberto MD 07/28/2024 Orders Only [facility] [address], [address] [place] [address] Jenny Alberto MD 07/25/2024 Orders Only [facility] [address] [place] [phone] Jenny Alberto MD 07/16/2024 Results Follow-Up [facility] [address] [place] [phone] Jenny Alberto MD 07/14/2024 9:00 AM EDT Office Visit [facility] [address] [place] [address] Jenny Alberto MD Autoimmune hepatitis (CMS/HCC) (Primary Dx); Nausea; Other specified hypothyroidism; 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; On prednisone therapy 07/14/2024 6:34 AM EDT - 07/14/2024 11:59 PM EDT Hospital Encounter [facility] [address] [place] [address] Other cirrhosis of liver (CMS/HCC) Discharge Disposition: Home or Self Care 07/14/2024 Telephone [facility] [address] [place] [address] Lori Levi RN 07/14/2024 Travel [...] Description 11/03/2024 8:40 AM EDT Office Visit [facility] [address], [address] [place] [address] Jenny Alberto MD [address] [place] [phone] 11/05/2024 9:00 AM EDT Office Visit [facility] [address], [address] [place] [address] Myles Dyer MD [address] [place] [address] Health Maintenance Due Date Last Done Comments [facility] Annual Wellness (AWV) 1950 [facility]-/Child/Adol SDOH Screenings 1950 [facility]- SDOH Screenings 1966 [facility]-Adult SDOH Screenings 1966 [facility]-Hepatitis A Vaccines (1 of 2 - Risk 2-dose series) 10/11/1967 [facility]-Pneumococcal Vaccine: 50+ Years (1 of 2 - PCV) 10/11/1967 [facility]-Zoster Vaccines (1 of 2) 10/11/1967 [facility]-DTaP,Tdap,and Td Vaccines (1 - Tdap) 05/15/1996 05/14/1996 [facility]-RSV Vaccine: 60+ Years or (1 - 1-dose 75+ series) 10/11/2023 [id number] Vaccine (7 - Moderna risk season) 2024 01/03/2024, 12/28/2022, 12/28/2021, Additional history [...] Systemic lupus erythematosus (SLE) in adult (CMS/HCC) ANTI-BETA 2 GLYCOPROTEIN, IGG AND IGM Routine 07/14/2024 10:01 AM EDT Systemic lupus erythematosus (SLE) in adult ([facility] CARDIOLIPIN ANTIBODY, IGA (SO) Routine 07/14/2024 10:01 AM EDT Systemic lupus erythematosus (SLE) in adult ([facility]) ANTICARDIOLIPIN Routine 07/14/2024 10:01 AM EDT Systemic lupus erythematosus (SLE) in adult ([facility]) LUPUS ANTICOAGULANT PROFILE Routine 07/14/2024 10:01 AM EDT Systemic lupus erythematosus (SLE) in adult ([facility]) RPR WITH REFLEX TO TITER Routine 07/14/2024 10:01 AM EDT Systemic lupus erythematosus (SLE) in adult ([facility]) SEDIMENTATION RATE, AUTOMATED Routine 07/14/2024 10:01 AM EDT Systemic lupus erythematosus (SLE) in adult ([facility]) C-REACTIVE PROTEIN, PLASMA Routine 07/14/2024 10:01 AM EDT Systemic lupus erythematosus (SLE) in adult ([facility]) DOUBLE-STRANDED DNA (DSDNA) ANTIBODY, IGG BY IFA (SO) Routine 07/14/2024 10:01 AM EDT Systemic lupus erythematosus (SLE) in adult ([facility]) THIOPURINE METABOLITES (SO) Routine 07/14/2024 10:01 AM EDT Systemic lupus erythematosus (SLE) in adult ([facility]) COMPREHENSIVE METABOLIC PANEL, PLASMA Routine 07/14/2024 10:01 AM EDT Autoimmune hepatitis ([facility]) IGG, PLASMA Routine 07/14/2024 10:01 AM EDT Autoimmune hepatitis ([facility]) TSH REFLEX FT4 Routine 07/14/2024 10:01 AM [...] LAB COAGULATION METHOD 09/22/2024 12:02 PM EDT [facility] INR 1.1 0.9 - 1.1 LAB COAGULATION METHOD 09/22/2024 12:02 PM EDT [facility] Blood Venous blood specimen / Unknown Venipuncture / Unknown 09/22/2024 10:25 AM EDT 09/22/2024 10:25 AM EDT Narrative [facility] - 09/22/2024 12:02 PM EDT OPTIMAL INR RANGES FOR PATIENT ON ORAL ANTICOAGULANT THERAPY Prevention of venous thromboembolism INR 2.0 to 3.0 In patients with heart disease: Atrial fibrillation INR 2.0 to 3.0 Valvular heart disease INR 2.0 to 3.0 Tissue heart valves INR 2.0 to 3.0 Mechanical prosthetic valves INR 2.5 to 3.5 Prevention of recurrent NH INR 2.5 to 3.5 us Bjorn Cano MD LAB BLOOD ORDERABLES Final Resul t [facility] [address] [place] [address] * (ABNORMAL) CBC and differential (09/22/2024 10:25 AM EDT) WBC Count 5.85 3.70 - 10.30 10*3/uL LAB HEMATOLOGY METHOD 09/22/2024 12:24 PM EDT [facility] RBC Count 4.69 4.60 - 6.10 10*6/uL LAB HEMATOLOGY METHOD 09/22/2024 12:24 PM EDT [facility] HGB 14.8 13.7 - 17.5 g/dL LAB HEMATOLOGY METHOD 09/22/2024 12:24 PM EDT [facility] HCT 44.6 40.0 - 51.0 % LAB HEMATOLOGY METHOD 09/22/2024 12:24 PM EDT [facility] Platelet Count 128(L) 155 - 369 10*3/uL LAB HEMATOLOGY METHOD 09/22/2024 12:24 PM EDT [facility] MCV 95 79 - 98 fL LAB HEMATOLOGY METHOD 09/22/2024 12:24 PM EDT [facility] MCH 31.6 26.0 - 32.0 pg LAB HEMATOLOGY METHOD 09/22/2024 12:24 PM EDT [facility] MCHC 33.2 30.7 - 35.5 g/dL LAB HEMATOLOGY METHOD 09/22/2024 12:24 PM EDT [facility] RDW 14.2 11.5 - 14.5 % LAB HEMATOLOGY METHOD 09/22/2024 12:24 PM EDT [facility] MPV 10.6 8.8 - 12.5 fL LAB HEMATOLOGY METHOD 09/22/2024 12:24 PM EDT [facility] nRBC 0.0 <=0.0 per 100 WBCs LAB HEMATOLOGY METHOD 09/22/2024 12:24 PM EDT [facility] Differential Type Automated LAB HEMATOLOGY METHOD 09/22/2024 12:24 PM EDT [facility] Neutrophils % 61 % LAB HEMATOLOGY METHOD 09/22/2024 12:24 PM EDT [facility] Lymphocytes % 27 % LAB HEMATOLOGY METHOD 09/22/2024 12:24 PM EDT [facility] Monocytes % 9 % LAB HEMATOLOGY METHOD 09/22/2024 12:24 PM EDT [facility] Eosinophils % 2 % LAB HEMATOLOGY METHOD 09/22/2024 12:24 PM EDT [facility] Basophils % 1 % LAB HEMATOLOGY METHOD 09/22/2024 12:24 PM EDT [facility] Immature Granulocytes % 0 % LAB HEMATOLOGY METHOD 09/22/2024 12:24 PM EDT [facility] Neutrophils Absolute 3.54 1.60 - 6.10 10*3/uL LAB HEMATOLOGY METHOD 09/22/2024 12:24 PM EDT [facility] Lymphocytes Absolute 1.60 1.20 - 3.90 10*3/uL LAB HEMATOLOGY METHOD 09/22/2024 12:24 PM EDT [facility] Monocytes Absolute 0.55 0.30 - 0.90 10*3/uL LAB HEMATOLOGY METHOD 09/22/2024 12:24 PM EDT [facility] Eosinophils Absolute 0.11 0.00 - 0.50 10*3/uL LAB HEMATOLOGY METHOD 09/22/2024 12:24 PM EDT [facility] Basophils Absolute 0.04 0.00 - 0.10 10*3/uL LAB HEMATOLOGY METHOD 09/22/2024 12:24 PM EDT [facility] Immature Granulocytes Absolute 0.01 0.00 - 0.06 10*3/uL LAB HEMATOLOGY METHOD 09/22/2024 12:24 PM EDT [facility] Blood Venous blood specimen / Unknown Venipuncture / Unknown 09/22/2024 10:25 AM EDT 09/22/2024 10:25 AM EDT Narrative [facility] - 09/22/2024 12:24 PM EDT Therapeutic decision making should be based on absolute values, rather than percentages. us Bjorn Cano MD LAB BLOOD ORDERABLES Final Resul t Performing Organization Address City/[facility]/ZIP Co de Phone Number [facility] [address] [place] [address] * (ABNORMAL) IgG (09/22/2024 10:25 AM EDT) Only the most recent of3 resultswithin the time period is included. IGG 1,608(H) 720 - 1,589 mg/dL 09/22/2024 12:25 PM EDT [facility] Blood Venous blood specimen / Unknown Venipuncture / Unknown 09/22/2024 10:25 AM EDT 09/22/2024 10:25 AM EDT us Bjorn Cano MD LAB BLOOD ORDERABLES Final Resul t [facility] [address] [place] [address] * (ABNORMAL) Comprehensive metabolic panel (09/22/2024 10:25 AM EDT) Only the most recent of3 resultswithin the time period is included. Glucose, Plasma 93 74 - 99 mg/dL 09/22/2024 11:58 AM EDT [facility] BUN, Plasma 23 8 - 23 mg/dL 09/22/2024 11:58 AM EDT [facility] Creatinine, Plasma 0.93 0.70 - 1.20 mg/dL 09/22/2024 11:58 AM EDT [facility] BUN/Creatinine Ratio 25 09/22/2024 11:58 AM EDT [facility] Sodium, Plasma 140 136 - 145 mmol/L 09/22/2024 11:58 AM EDT [facility] Potassium, Plasma 4.4 3.6 - 4.9 mmol/L 09/22/2024 11:58 AM EDT [facility] Chloride, Plasma 103 97 - 107 mmol/L 09/22/2024 11:58 AM EDT [facility] CO2, Plasma 28 22 - 29 mmol/L 09/22/2024 11:58 AM EDT [facility] Anion Gap 9 6 - 16 mmol/L 09/22/2024 11:58 AM EDT [facility] Total Calcium, Plasma 9.9 8.9 - 10.2 mg/dL 09/22/2024 11:58 AM EDT [facility] Total Protein 7.2 6.3 - 7.9 g/dL 09/22/2024 11:58 AM EDT [facility] Albumin, Plasma 4.2 3.5 - 5.2 g/dL 09/22/2024 11:58 AM EDT [facility] AST, Plasma 95(H) 10 - 50 U/L 09/22/2024 11:58 AM EDT [facility] ALT, Plasma 115(H) 10 - 50 U/L 09/22/2024 11:58 AM EDT [facility] Alkaline Phosphatase, Plasma 117(H) 40 - 115 U/L 09/22/2024 11:58 AM EDT [facility] Total Bilirubin, Plasma 0.9 0.2 - 1.1 mg/dL 09/22/2024 11:58 AM EDT [facility] eGFRcr 85.6 mL/min/1.7 3m*2 09/22/2024 11:58 AM EDT [facility] Comment:Reported eGFRcr in m L/min/1.73m2 is based the CKD-EPI 2020 equation that does not use a race coefficient. Blood Venous blood specimen / Unknown Venipuncture / Unknown 09/22/2024 10:25 AM EDT 09/22/2024 10:25 AM EDT Bjorn Cano MD LAB BLOOD ORDERABLES Final Resul t Performing Organization Address [facility] Co de Phone Number [facility] [address] [place] [address] * COMPLETE METABOLIC PROFILE (CMP) (07/25/2024 4:15 PM EDT) Jenny Alberto MD LAB BLOOD ORDERABLES Final Result * CBC W/DIFF (07/25/2024 7:28 AM EDT) Jenny Alberto MD LAB BLOOD ORDERABLES Final Result * RPR With Reflex to Titer (07/14/2024 10:01 AM EDT) Pathologist [facility] Rapid Plasma Reagin Nonreactive Non Reactive 07/15/2024 12:40 AM EDT [facility] Blood Venous blood specimen / Unknown Venipuncture / Unknown 07/14/2024 10:01 AM EDT 07/14/2024 10:01 AM EDT Fabby Paige MD LAB BLOOD ORDERABLES Fi nal Result Performing Organization Address [facility] Co de Phone Number [facility] [address] [place] [address] * Anti-Beta 2 Glycoprotein, IgG and IgM (07/14/2024 10:01 AM EDT) Pathologist [facility] Anti-Beta 2 Glycoprotein 1, IgG <1.4 <20.0 U/mL 07/14/2024 2:[address] [facility] Anti-Beta 2 Glycoprotein IgG Interpretation Negative Negative 07/14/2024 2:[address] [facility] Anti-Beta 2 Glycoprotein 1, IgM 12.4 <20.0 U/mL 07/14/2024 2:[address] [facility] Anti-Beta 2 Glycoprotein IgM Interpretation Negative Negative 07/14/2024 2:[address] [facility] Blood Venous blood specimen / Unknown Venipuncture / Unknown 07/14/2024 10:01 AM EDT 07/14/2024 10:01 AM EDT Fabby Paige MD LAB BLOOD ORDERABLES Fi nal Result Performing Organization Address City/[facility]/ZIP Co de Phone Number [facility] [address] [place] [address] * TSH Reflex FT4 (07/14/2024 10:01 AM EDT) Thyroid Stimulating Hormone, Plasma 2.24 0.40 - 4.20 uIU/mL 07/14/2024 11:[address] [facility] Blood Venous blood specimen / Unknown Venipuncture / Unknown 07/14/2024 10:01 AM EDT 07/14/2024 10:01 AM EDT Jenny Alberto MD LAB BLOOD ORDERABLES Final Result [facility] [address] [place] [address] * Beta-2 Glycoprotein 1 Antibody, IgA (SO) (07/14/2024 10:01 AM EDT) [id number] 1, IgA Antibody <10 <=20 BISI 07/16/2024 3:02 AM EDT [facility] ([facility]) Serum 07/14/2024 10:0 1 AM EDT 07/14/2024 10:01 AM EDT Narrative [facility]) - 07/16/2024 3:02 AM EDT Performed By: [facility] [address] [place] [address] Corrections Corporal: Jos Thompson MD, PhD CLIA Number: [id number] Fabby Paige MD LAB BLOOD ORDERABLES Fi nal Result Performing Organization Address City/[facility]/ZIP Co de Phone Number [facility] [employer]) [address] [place] [address] * Thiopurine Metabolites (07/14/2024 10:01 AM EDT) Pathologist [facility] THIOPURINE METABOLITES 07/18/2024 10:33 AM EDT [employer]) 6 TGN <4 230 - 400 pmole/8X 10E8 RBC 07/18/2024 10:33 AM EDT [facility] ([employer]) 6 TGN Results Assessment:CHANELL G Not Quantifiable. Lower Likelihood of Response 07/18/2024 10:33 AM EDT [facility] ([employer]) 6 MMPN <274 <5700 pmole/8X 10E8 RBC 07/18/2024 10:33 AM EDT [employer]) 6 MMPN Results Assessment: Not Quantifiable. Lower Risk of Hepatotoxicity 07/18/2024 10:33 AM EDT [employer]) Blood Venous blood specimen / Unknown Venipuncture / Unknown 07/14/2024 10:01 AM EDT 07/14/2024 10:01 AM EDT Narrative [employer]) - 07/18/2024 10:33 AM EDT Test performed at [facility], [place], [place]. Fabby Paige MD LAB BLOOD ORDERABLES Fi nal Result [employer]) [address] [facility] [place] [address] * Anticardiolipin IgG and IgM (07/14/2024 10:01 AM EDT) IgG Anticardiolipin <1.60 <20.00 GPL Units/mL 07/14/2024 2:12 PM EDT [facility] Anticardiolipin IgG Interpretation Negative Negative 07/14/2024 2:12 PM EDT [facility] IgM Anticardiolipin 11.50 <20.00 MPL Units/mL 07/14/2024 2:12 PM EDT [facility] Anticardiolipin IgM Interpretation Negative Negative 07/14/2024 2:12 PM EDT [facility] Blood Venous blood specimen / Unknown Venipuncture / Unknown 07/14/2024 10:01 AM EDT 07/14/2024 10:01 AM EDT Fabby Paige MD LAB BLOOD ORDERABLES Fi nal Result [facility] [address] [place] [address] * (ABNORMAL) Anti-DNA antibody, double-stranded (07/14/2024 10:01 AM EDT) Double-Strande d DNA (dsDNA) Ab IgG IFA 1:640(H) <1:10 07/17/2024 3:[address] [facility] ([place]) Blood Venous blood specimen / Unknown Venipuncture / Unknown 07/14/2024 10:01 AM EDT 07/14/2024 10:[address] [facility] ([place]) - 07/17/2024 3:12 PM EDT [...] recommendations for testing may be found at https://[employer]/content/fzsyewltox-pqzkvy-ieptjfhw. Performed By: [facility] [employer] [address] [place] [address] Corrections Corporal: Jos Thompson MD, PhD CLIA Number: [id number] Fabby Paige MD LAB BLOOD ORDERABLES Fi nal Result Performing Organization Address [facility] Co de Phone Number [facility] ([place]) [address] [place] [address] * Cardiolipin antibody, IgA (SO) (07/14/2024 10:01 AM EDT) Pathologist [facility] Cardiolipin Antibody IgA <10 <=11 APL 07/16/2024 5:53 PM EDT [facility] ([facility]) Blood Venous blood specimen / Unknown Venipuncture / Unknown 07/14/2024 10:01 AM EDT 07/14/2024 10:01 AM EDT Narrative [facility] ([place]) - 07/16/2024 5:53 PM EDT INTERPRETIVE INFORMATION: Cardiolipin Antibodies, IgA <=11 APL: Negative 12-19 APL: Indeterminate 20-80 APL: Low to Moderately Positive 81 APL or above: High Positive Performed By: [facility] [employer] [address] [place] [address] Corrections Corporal: Jos Thompson MD, PhD CLIA Number: [id number] Fabby Paige MD LAB BLOOD ORDERABLES Fi nal Result Performing Organization Address [facility] Co de Phone Number [facility] ([place]) [address] [place] [address] * Lupus Anticoagulant Profile (07/14/2024 10:01 AM EDT) [facility] Lupus Anticoagulant Result Lupus anticoagulant (LA) not detected by either LA-sensitive aPTT or dRVVT assays. If clinical suspicion for antiphospholipid syndrome is high, consider testing for antibodies against cardiolipin and ohip-[id number] n I. 07/15/2024 10:39 AM EDT [facility] aPTT Lupus Anticoagulant Sensitive 34.7 <=41.0 sec LAB COAGULATION METHOD 07/15/2024 10:39 AM EDT [facility] DRVVT Screen 35.4 sec LAB COAGULATION METHOD 07/15/2024 10:39 AM EDT [facility] DRVVT Screen Ratio 0.89 <1.20 LAB COAGULATION METHOD 07/15/2024 10:39 AM EDT [facility] Blood Venous blood specimen / Unknown Venipuncture / Unknown 07/14/2024 10:01 AM EDT 07/14/2024 10:01 AM EDT Fabby Paige MD LAB BLOOD ORDERABLES Fi nal Result Performing Organization Address City/[facility]/ZIP Co de Phone Number [facility] [address] [place] [address] * Sedimentation Rate, Automated (07/14/2024 10:01 AM EDT) Sedimentation Rate 17 <20 mm/hr 2024 11:00 AM EDT [facility] Blood Venous blood specimen / Unknown Venipuncture / Unknown 07/14/2024 10:01 AM EDT 07/14/2024 10:01 AM EDT Fabby Paige MD LAB BLOOD ORDERABLES Fi nal Result Performing Organization Address City/[facility]/ZIP Co de Phone Number [facility] [address] [place] [address] * C3 complement (07/14/2024 10:01 AM EDT) C3 Complement 99 84 - 166 mg/dL 07/14/2024 12:57 PM EDT [facility] Blood Venous blood specimen / Unknown Venipuncture / Unknown 07/14/2024 10:01 AM EDT 07/14/2024 10:01 AM EDT Fabby Paige MD LAB BLOOD ORDERABLES Fi nal Result [facility] [address] [place] [address] * C4 complement (07/14/2024 10:01 AM EDT) C4 Complement 13 13 - 36 mg/dL 07/14/2024 12:57 PM EDT [facility] Blood Venous blood specimen / Unknown Venipuncture / Unknown 07/14/2024 10:01 AM EDT 07/14/2024 10:01 AM EDT Fabby Paige MD LAB BLOOD ORDERABLES Fi nal Result Performing Organization Address City/[facility]/[place] [address] * C-reactive protein (07/14/2024 10:01 AM EDT) CRP, Plasma <3.0 <=8.0 mg/L 07/14/2024 11:20 AM EDT [facility] Blood Venous blood specimen / Unknown Venipuncture / Unknown 07/14/2024 10:01 AM EDT 07/14/2024 10:01 AM EDT Narrative [facility] - 07/14/2024 11:20 AM EDT This CRP test is appropriate for assessment of infection, systemic inflammation and/or tissue injury. To assess cardiovascular disease risk order high sensitivity CRP (CRPH). Fabby Paige MD LAB BLOOD ORDERABLES Fi nal Result Performing Organization Address City/[facility]/ZIP Co de Phone Number [facility] [address] [place] [address] * US Liver Screen (07/14/2024 6:54 AM [...] are based on Ultrasound LI-RADS version 2017. [email or web address] CRITICAL RESULT: No. COMMUNICATION: Per [...] recommendations are based on UltrasoundLI-RADS version 2017. [email or web address] -[email or web address] CRITICAL RESULT: No. COMMUNICATION: Per this written report. By electronically signing this report, I, the attending physician, attestthat I have personally reviewed the images/data for the aboveexamination(s) and agree with the final edited report. Drafted by João aSlinas DO on 07/17/2024 8:24 AM Final report signed by America Rodney DO on 07/17/2024 10:52 AM Jenny Alberto MD IMG US PROCEDURES Final Re sult * Hepatitis C antibody (01/21/2024 12:22 PM EST) Hepatitis C Antibody Negative Negative 01/21/2024 3:15 PM EST [facility] Blood Venous blood specimen / Unknown Venipuncture / Unknown 01/21/2024 12:22 PM EST 01/21/2024 12:23 PM EST us Jenny Alberto MD LAB BLOOD ORDERABLES Final Result [facility] [address] [place] [address] from Last 3 Months or Most Recently Relevant to Health Maintenance Insurance [employer] MED[employer] Care Teams Rug Shampooer Relationship Specialty Start Date End Date Luis Lawson MD [address] [place] [address] YESSICA Fischer [id number] PCP - General 02/25/24
--- OUTSIDE RECORDS SUMMARY | 2024-10-10 04:25 | XMS_ITS | Encounter Summary ---
Author Organization Healthcare Address [address] [place] [address] Care Team Providers Care Templer Head Name Role Phone Luis Lawson MD Primary Care Provider [phone] Encounter Details Date Type Department Care Team (Late st Contact Info) Description 07/28/2024 Results Follow-Up [facility]ties [address] [place] [address] Jenny Alberto MD [address] [place] [address] Social History Tobacco Use Types [...] Description 11/03/2024 8:40 AM EDT Office Visit [facility] [address] [place] [id number] Jenny Alberto MD [address] [facility] [address] [place] [address] 11/05/2024 9:00 AM EDT Office Visit [facility] [address] [place] [address] Myles Dyer MD [address] [facility] [address] [place] [address] documented as of this encounter [...] documented as of this encounter Care Teams Templer Head Relationship Specialty Start Date End Date Luis Lawson MD [address] [place] [id number] PCP - General 02/25/24 documented as of this encounter
--- NOTE | 2024-10-10 04:46 | CT_ITS ---
PROCEDURE INFORMATION: Exam: CT Head Without Contrast Exam date and time: 10/10/2024 5:33 AM Age: 74 years old Clinical indication: Stroke-like symptoms; Dizziness/giddiness; Additional info: Dizziness HX vertigo TECHNIQUE: Imaging protocol: Computed tomography of the head without contrast. Radiation optimization: All CT scans at this facility use at least one of these dose optimization techniques: automated exposure control; mA and/or kV adjustment per patient size (includes targeted exams where dose is matched to clinical indication); or iterative reconstruction. Other technique: STROKE PROTOCOL was implemented. COMPARISON: No relevant prior studies available. FINDINGS: Brain: The brain demonstrates mild diffuse volume loss. There is some white matter hypodensity most consistent with chronic small vessel ischemic change. There is preservation of the clifford-white junction throughout. Cerebral ventricles: The ventricles and CSF spaces are normal in size for age. Paranasal sinuses: Visualized sinuses are unremarkable. No fluid levels. Mastoid air cells: Visualized mastoid air cells are well aerated. Bones: No acute fracture. Soft tissues: Unremarkable. IMPRESSION: 1. Mild sequela of chronic small vessel ischemia. 2. There is no acute intracranial abnormality. ASSESSMENT: ASPECTS ([place] Stroke Program Early CT Score) is 10.
--- NOTE | 2024-10-10 04:46 | CT_ITS ---
PROCEDURE INFORMATION: Exam: CTA Neck With Contrast Exam date and time: 10/10/2024 5:35 AM Age: 74 years old Clinical indication: Stroke-like symptoms; Dizziness/giddiness; Additional info: Dizziness HX vertigo TECHNIQUE: Imaging protocol: Computed tomographic angiography of the neck with contrast. Exam focused on the cervical segments of the vasculature. 3D rendering (Not supervised by radiologist): MIP and/or 3D reconstructed images were created by the technologist. Radiation optimization: All CT scans at this facility use at least one of these dose optimization techniques: automated exposure control; mA and/or kV adjustment per patient size (includes targeted exams where dose is matched to clinical indication); or iterative reconstruction. Contrast material: ISOVUE; Contrast volume: 80 ml; Contrast route: INTRAVENOUS (IV); COMPARISON: CT HEAD/BRAIN WO CON 10/10/2024 5:33 AM FINDINGS: Right common carotid artery: No stenosis. No dissection or occlusion. Right internal carotid artery: There is atherosclerotic disease at the origin of the right cervical ICA without narrowing. Right external carotid artery: No occlusion or stenosis of the origin. Left common carotid artery: No stenosis. No dissection or occlusion. Left internal carotid artery: There is atherosclerotic disease at the origin of the left cervical ICA without narrowing. Left external carotid artery: No occlusion or stenosis of the origin. Right vertebral artery: No stenosis. No dissection or occlusion. Left vertebral artery: No stenosis. No dissection or occlusion. Thyroid: The thyroid is slightly enlarged. There are a few subcentimeter regions of enhancement within consistent with nodules. Soft tissues: Normal. No significant soft tissue swelling. Bones/joints: There are degenerative changes throughout the cervical spine, not fully assessed. IMPRESSION: 1. There is no hemodynamically significant cervical arterial stenosis and there is no acute cervical arterial occlusion. 2. Slightly enlarged thyroid with subcentimeter nodules not fully assessed. COMMENTS: Consistent with the [employer]'s Incidental Findings Committee white paper (J Am Rashid Radiol 2015): In patients aged 35 years and older with an incidental thyroid nodule equal to or greater than 1.[address], MRI or extrathyroidal US, further evaluation with dedicated thyroid US is recommended for patients with normal life expectancy and without comorbidities. For smaller nodules without suspicious features, no further evaluation or follow up is recommended. REFERENCES: NASCET CRITERIA. The degree of stenosis in the cervical segment of the internal carotid artery is based on NASCET criteria. Normal is no stenosis. Mild is less than 50% stenosis. Moderate is 50-69% stenosis. Severe is 70% to 99% stenosis. Total occlusion is no detectable patent lumen.
--- NOTE | 2024-10-10 04:46 | CT_ITS ---
PROCEDURE INFORMATION: Exam: CTA Head With Contrast, Arteriography Exam date and time: 10/10/2024 5:35 AM Age: 74 years old Clinical indication: Stroke-like symptoms; Dizziness/giddiness; Additional info: Dizziness HX vertigo TECHNIQUE: Imaging protocol: Computed tomographic angiography of the head with contrast. Exam focused on the arteries. 3D rendering (Not supervised by radiologist): MIP and/or 3D reconstructed images were created by the technologist. Radiation optimization: All CT scans at this facility use at least one of these dose optimization techniques: automated exposure control; mA and/or kV adjustment per patient size (includes targeted exams where dose is matched to clinical indication); or iterative reconstruction. Contrast material: ISOVUE; Contrast volume: 80 ml; Contrast route: INTRAVENOUS (IV); COMPARISON: CT HEAD/BRAIN WO CON 10/10/2024 5:33 AM FINDINGS: ANTERIOR CIRCULATION: Right internal carotid artery: Intracranial segment is patent with no significant stenosis. No aneurysm. Right middle cerebral artery: No occlusion or significant stenosis. No aneurysm. Right anterior cerebral artery: No occlusion or significant stenosis. No aneurysm. Left internal carotid artery: Intracranial segment is patent with no significant stenosis. No aneurysm. Left middle cerebral artery: No occlusion or significant stenosis. No aneurysm. Left anterior cerebral artery: No occlusion or significant stenosis. No aneurysm. POSTERIOR CIRCULATION: Right vertebral artery: There is atherosclerotic disease involving the intradural segment of the right vertebral artery with mild narrowing. Left vertebral artery: No occlusion or significant stenosis. No aneurysm. Basilar artery: No occlusion or significant stenosis. No aneurysm. Right posterior cerebral artery: No occlusion or significant stenosis. No aneurysm. Left posterior cerebral artery: No occlusion or significant stenosis. No aneurysm. Brain: No abnormal enhancement. Cerebral ventricles: The ventricles and CSF spaces are in size for age. Bones/joints: No acute fracture. Soft tissues: Unremarkable. IMPRESSION: There is no acute intracranial large vessel arterial occlusion.
--- NOTE | 2024-10-10 04:59 | ECG_ITS ---
APPROVED REPORT Exam: Resting ECG HR:63 bpm ECG Measurements Heart Rate 63 AXES OR 193 P 54 QRSd 102 QRS 49 QT 391 T 58 QTc 399 Conclusion SINUS RHYTHM NORMAL ECG Electronically signed by : QUETA ACOSTA, 10/10/2024 07:13:04
[2024-10-10 05:01] LABS: Hematocrit 41.7 % (42.0-52.0); Hemoglobin 14.0 g/dL (14.1-18.0); Immature Granulocytes % 0.3 %; Mean Corpuscular HGB Conc 33.6 g/dL (31.8-35.4); Mean Corpuscular Hemoglobin 31.2 pg (27.0-31.2); Mean Corpuscular Volume 92.9 fl (80-94); Nucleated Red Blood Cells % 0 %; Platelet Count 127 K/mm3 (142-424); Red Blood Count 4.49 M/mm3 (4.60-6.20); Red Cell Distribution Width-SD 49.7 fL; White Blood Count 6.6 K/mm3 (4.8-10.8)
[2024-10-10 05:02] LABS: Chloride 102 mmol/L (98-107)
[2024-10-10 05:03] LABS: Albumin Level 3.4 g/dl (3.5-5.0); Potassium 3.8 mmoL/L (3.5-5.1); Sodium 135 mmol/L (136-145)
[2024-10-10 05:05] LABS: Blood Urea Nitrogen 27 mg/dl (9-20); Creatinine Clearance Estimated 65 mL/min (50-200); Creatinine,Serum 0.80 mg/dl (0.66-1.25); Estimated Glomerular Filt Rate 94 ml/min (>60); GFR (African American) 114 ML/MIN (>60)
[2024-10-10 05:06] LABS: Alanine Aminotransferase 94 U/L (12-78); Albumin/Globulin Ratio 0.9 (1.1-1.8); Alkaline Phosphatase 72 U/L (38-126); Anion Gap 7.8 mEq/L (5-15); Aspartate Amino Transferase 56 U/L (17-59); Bilirubin,Total 0.8 mg/dl (0.2-1.3); Calcium 10.0 mg/dl (8.4-10.2); Carbon Dioxide 29 mmol/L (22.0-30.0); Globulin 4.0 g/dL (1.3-3.2); Glucose 105 mg/dl (74-100); Total Protein,Serum 7.4 g/dl (6.3-8.2)
[2024-10-10 05:18] LABS: Troponin I < 0.01 ng/ml (0.00-0.034)
[2024-10-10] MEDS: IOPAMIDOL-370 (76%);100ML BOTTLE 80 ML IV (05:45)
[2024-10-10] MEDS: SODIUM CHLORIDE 0.9% 10ML SYR (RAD ONLY) 10 ML IV (05:45)
--- NOTE | 2024-10-10 05:45 | HMH.EDGENADL ---
Discharge Plan Disposition Patient Disposition: Home, Self-Care Condition: Good Prescriptions Prescriptions: No Action tamsulosin [Flomax] 0.4 mg capsule,extended release 24hr 0.4 mg PO DAILY prednisone 20 mg tablet 20 mg PO BID Patient Comments: pt is reporting that he take 30 mg daily levothyroxine 50 mcg capsule 50 mcg PO DAILY aspirin [Adult Low Dose Aspirin] 81 mg tablet,delayed release (DR/EC) 81 mg PO DAILY Qty: 90 3RF atorvastatin 10 mg tablet 10 mg PO azathioprine 50 mg tablet 50 mg PO carvedilol 12.5 mg tablet 12.5 mg PO BID Qty: 180 2RF Rx Instructions: must administer with a meal/food amlodipine [Norvasc] 5 mg tablet 2.5 mg PO DAILY Qty: 90 3RF ranolazine 500 mg tablet extended release 12 hr 500 mg PO DAILY Qty: 90 3RF Referrals Follow up/Referrals: Naomi Lawson MD [Primary Care Provider, Medical] - See instructions Audi Howell DO [Staff Physician, Family Practice] - See instructions Referral Note: Establish care, transition from Dr. Lawson's office Activity Restrictions/Add. Instructions Additional Instructions/Restrictions: You were evaluated in the ER and are believed to be appropriate for discharge at this time. Continue your home medications as prescribed. You have been referred to Dr. Howell to establish care with a new primary care doctor as requested. Call your primary care doctor first thing this morning and make an appointment for immediate follow-up to discuss your medications and your concerns with any potential side effects. Also discussed your vertigo symptoms with him. You should ask him about vestibular therapy. You also have nodules on your thyroid, discussed these with him so he can schedule further follow-up. Drink plenty of water to maintain good hydration. Return to the ER with any new, worsening, or otherwise concerning symptoms. Clinical Impressions Clinical Impression: Hypertension, Dizziness, Thyroid nodule Print Language Print Language: Faroese Discharge ED Provider: Carine Lang Adult HPI General Chief complaint: Recheck/Abnormal Lab/Rx Stated complaint: high BP, dizziness Time Seen by Provider: 10/10/24 04:37 Mode of Arrival: Ambulatory Source of Information: Patient Description of Symptoms (Recalled from ER Triage Doc. by RN): Pt presents with concerns of hypertension after his Dr at switched his BP medication on 09/24. Pt states he took it at home after feeling dizzy and it was elevated, unable to recall exact numbers. Pt is currently 180/98. Denies any SOB, RIBEIRO History of Present Illness HPI narrative: 74-year-old male presents to the ER concerned about high blood pressure and feeling dizzy. Patient reports he has a history of a inner ear problem for which he has taken a medication in the past. After further questioning, the previous medication was meclizine and he states he did not tolerate it well, his side effects from that medication were worse than the symptoms of dizziness. 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 Patient states yesterday evening he started having dizziness like his previous inner ear problem. He states he noticed it most when he bent over and stood up and suddenly was dizzy for a few seconds. He states if he turns his head [id number] he has brief episodes of dizziness. Episodes only last a few seconds. He does not have any room spinning at this time, no lightheadedness. He states because he was dizzy he decided to check his blood pressure and it was 199 over something according to patient and family at bedside. He denies any chest pain, difficulty breathing, shortness of breath, cough, fevers, chills, headache, numbness, tingling, weakness, he has not had any falls or injuries. He does not have any ear pain, sore throat, abdominal pain, nausea, vomiting, diarrhea, he states he is making normal urine. No other complaints or concerns. Related Data Home Medications ?Medication ?Instructions ?Recorded ?Confirmed tamsulosin 0.4 mg capsule (Flomax) 0.4 mg PO DAILY urination 07/02/17 09/23/24 atorvastatin 10 mg tablet 10 mg PO 03/26/24 09/23/24 azathioprine 50 mg tablet 50 mg PO 03/26/24 09/23/24 levothyroxine 50 mcg capsule 50 mcg PO DAILY 09/23/24 09/23/24 prednisone 20 mg tablet 20 mg PO BID 09/23/24 09/23/24 Previous Rx's ?Medication ?Instructions ?Recorded aspirin 81 mg tablet,delayed 81 mg PO DAILY Blood thinner #90 02/19/23 release (Adult Low Dose Aspirin) tabs amlodipine 5 mg tablet (Norvasc) 2.5 mg (1/2 x 5 mg) PO DAILY bp 03/07/24 #90 tabs ranolazine 500 mg tablet,extended 500 mg PO DAILY * #90 tabs 03/07/24 release,12 hr carvedilol 12.5 mg tablet 12.5 mg PO BID #180 tabs 03/26/24 Allergies Allergy/AdvReac Type Severity Reaction Status Date / Time atorvastatin (From Lipitor) AdvReac Unknown Verified 07/16/24 10:51 allergy reaction evolocumab (From Repatha AdvReac Rash Verified 07/16/24 10:51 SureClick) pravastatin AdvReac Muscle Pain Verified 07/16/24 10:51 PFSH PFS Disclaimer: The information contained in this section may have been updated after the patient was seen, as this information can be updated by other users. Medical History Cirrhosis of liver Elevated liver enzymes Angina at rest History of chest pain Surgical History History of liver biopsy History of hernia repair History of colonoscopy Hx of hemorrhoidectomy Family History Other Family history of myocardial infarction Social History Smoking Status: Never smoker alcohol intake: never substance use type: denies use current occupational status: retired Travel in the last 8 weeks?: None housing: house caffeine: Yes Have you lived/traveled outside US in past 30 days?: No Contact w/someone who lives/traveled outside US past 30 days?: No Exposure to someone with infectious disease in past 14 days?: No Do you have a fever (greater than 100.4 F or 38 C)?: No Have you tested positive for COVID-19?: No Exposed to someone with COVID-19 in past 14 days?: No Do you have a sore throat?: No Do you have a cough?: No Do you have any weakness?: No Do you have any diarrhea?: No Are you experiencing any unusual bleeding?: No Do you have any muscle aches/pain?: No Do you have any abdominal pain?: No Are you experiencing loss of taste or smell?: No Other Medical History Have you received the Flu Vaccine for this season: Yes Have you received the Pneumonia Vaccine: Yes ROS Obtained: Yes Systems reviewed as appropriate & no additional complaints except as documented Per HPI Physical Exam General General appearance: alert and in no apparent distress Head Head exam: atraumatic and normocephalic Eye Eye exam: Present PERRL, EOMI and nystagmus (Lateral beating nystagmus when looking to the right, no vertical nystagmus) ENT ENT exam: Present mucous membranes moist Neck Neck exam: Present normal inspection and full ROM Chest Chest inspection: Present symmetric chest wall rise Respiratory Respiratory exam: Present normal lung sounds bilaterally; Absent respiratory distress, wheezes or stridor Cardiovascular Cardiovascular exam: Present regular rate and normal rhythm Abdominal Exam Abdominal exam: Present soft; Absent distention or tenderness Extremities Exam Extremities exam: Present full ROM; Absent edema Neurological Exam Neurological exam: Present alert, oriented X3, CN II-XII intact, normal gait (Independently ambulatory into the ER) and other (NIH 0, normal finger-nose and [id number], no cerebellar symptoms); Absent motor sensory deficit Psychiatric Psychiatric exam: Present normal affect and normal mood Skin Skin exam: Present warm and dry Medical Decision Making Medical Records Medical records reviewed: Yes I reviewed the patient's medical records. Screening: Per USPSTF and CDC recommendations, given the prevalence of disease in our region, it is our hospital?s policy to screen for HIV and viral Hepatitis for all patients aged 18 and over and those with ongoing risk factors. Chevy Inquiry Pt receiving controlled substance: No Vital Signs: 10/10/24 04:08 10/10/24 04:17 10/10/24 04:47 Temperature 98 F 98 F Temperature Source Oral Oral Pulse Rate 68 Pulse Rate [Left] 77 Pulse Rate [Orthostatic Lying Left] 61 Pulse Rate [Orthostatic Sitting Left] 63 Pulse Rate [Orthostatic Standing Left] 64 Respiratory Rate 18 18 Blood Pressure 161/98 H Blood Pressure [Left Arm] 180/98 H Blood Pressure [Orthostatic Lying Right Arm] 149/83 H Blood Pressure [Orthostatic Sitting Right Arm] 159/101 H Blood Pressure [Orthostatic Standing Right Arm] 159/92 H Blood Pressure Mean [Left Arm] 125 Blood Pressure Source [Left Arm] Automatic Cuff Blood Pressure Position Sitting Blood Pressure Position [Left Arm] Sitting 02 Sat by Pulse Oximetry 96 98 Oxygen Delivery Method Room Air Room Air Lab Data Lab Results 10/10/24 04:50: WBC 6.6, RBC 4.49 L, Hgb 14.0 L, Hct 41.7 L, MCV 92.9, MCH 31.2, MCHC 33.6, RDW 14.6, Plt Count 127 L, MPV 9.7, Neut % (Auto) 59.5, Lymph % (Auto) 33.0, Kings % (Auto) 6.5, Eos % (Auto) 0.5, Baso % (Auto) 0.2, Neut # (Auto) 3.9, Lymph # (Auto) 2.2, Kings # (Auto) 0.4, Eos # (Auto) 0.0, Baso # (Auto) 0.0, Sodium 135 L, Potassium 3.8, Chloride 102, Carbon Dioxide 29, Anion Gap 7.8, BUN 27 H D, Creatinine 0.80, Estimated Creat Clear 65, Estimated GFR 94, Est GFR ( Amer) 114 D, Glucose 105 H, Calcium 10.0, Total Bilirubin 0.8, AST 56, ALT 94 H, Alkaline Phosphatase 72, Troponin I < 0.01, Total Protein 7.4, Albumin 3.4 L, Globulin 4.0 H, Albumin/Globulin Ratio 0.9 L 10/10/24 04:50 10/10/24 04:50 Orders (Tests/Meds): ED MEDICATIONS Discontinued Medications Generic Name Dose Route Start Last Admin Trade Name Freq PRN Reason Stop Dose Admin Iopamidol 80 ml 10/10/24 05:43 10/10/24 05:45 Iopamidol-370 (76%);100ml Bottle IV 10/10/24 05:44 80 ml ONCE ONE Administration Sodium Chloride 50 ml 10/10/24 05:43 10/10/24 05:46 0.9 % Sodium Chloride 50 Ml Vial IV 10/10/24 05:44 50 ml ONCE ONE Administration Sodium Chloride 10 ml 10/10/24 05:43 10/10/24 05:45 Sodium Chloride 0.9% 10ml Syr (Rad Only) IV 10/10/24 05:44 10 ml ONCE ONE Administration ORDERS Category Date Time Status CT angio head Stat Cat Scan 10/10/24 04:[address] angio neck Stat Cat Scan 10/10/24 04:[address] head/brain wo con Stat Cat Scan 10/10/24 04:46 Completed CBC w/Auto Diff [Complete Blood Count Auto Diff] Stat Lab 10/10/24 04:50 Completed CMP [Comprehensive Metabolic Panel] Stat Lab 10/10/24 04:50 Completed Trop I [Troponin I] Stat Lab 10/10/24 04:50 Completed Troponin I Q3H Lab 10/10/24 08:00 Ordered Troponin I Q3H Lab 10/10/24 11:00 Ordered Medical Decision Narrative: In summary, this 74-year-old male with carpet as described in the HPI presents to the emergency department today with concern of dizziness when bending over and standing up or turning his head too quickly in the setting of high blood pressure. On initial evaluation patient is hemodynamically stable, afebrile, GCS 15, NIH 0, no neurologic deficits, no cerebellar symptoms, patient does have lateral beating nystagmus when looking to the right but not when looking to the left, symptoms can be provoked with rapid head turning, they only last a few seconds. Patient has no numbness, tingling, or weakness, cardiopulmonary exam benign, abdominal exam benign, remainder of exam reassuring. He was hypertensive on arrival but this spontaneously improved. Differential diagnosis includes but is not limited to ACS, hypertensive urgency, hypertensive emergency, kidney dysfunction, troponin elevation, considered intracranial bleed but have extremely low suspicion for this since patient has no headache or neurologic deficits, I considered the possibility of posterior fossa stroke but have very low suspicion for this since patient has no neurologic deficits and symptoms are only provoked with movement and patient has history of vertigo. Additionally patient states his symptoms are very similar to when he had vertigo symptoms previously, he was more concerned about his blood pressure. Based on these concerns, I ordered serum labs, cardiac workup, CT imaging. Patient's onset of symptoms has been more than 8 hours ago, while outside the window for stroke alert. ECG personally interpreted demonstrates sinus rhythm, rate 63, normal axis, normal RI and QTc, no STEMI. Labs personally reviewed demonstrate no leukocytosis, hemoglobin 14, nonactionable, mild thrombocytopenia nonactionable, CMP with mild prerenal azotemia, patient is tolerating oral intake, troponin undetectably low less than 0.01. Creatinine normal. Labs are reassuring against endorgan damage. CT head personally interpreted does not demonstrate acute intracranial abnormality, CTA head and neck do not demonstrate acute large vessel occlusion, see radiology reads for final interpretations. I actually discussed the angiography reads with the reading radiologist who reports no evidence of stroke. While he stated a very small posterior stroke cannot be ruled out, he states the patient has a very low burden of disease which is reassuring. Radiology read comments on poorly characterize thyroid nodules. Patient informed of these and given instructions for follow-up. Normal orthostatics. Patient is well-appearing and comfortable. He has been able to ambulate in the ER and is tolerating oral intake. With his history of BPPV, unilateral lateral beating nystagmus indicative of peripheral source, symptoms only lasting a few seconds at a time and only provoked by rotational movements are all extremely reassuring against central cause. I believe patient is appropriate for discharge at this time and he is comfortable with this plan. I instructed the patient to follow-up with his primary care doctor for reevaluation and consideration of vestibular therapy. Since patient has not tolerated meclizine in the past I will not prescribe this. Patient was encouraged to continue all home medications as previously prescribed but follow-up closely with his primary care doctor. I also encouraged him to maintain good hydration. Patient was given instructions on symptomatic management, follow up instructions, and return precautions for the emergency department. Patient indicated understanding and was discharged in stable condition. Critical Care Critical Care Time Critical Care Time: No
[2024-10-10] MEDS: 0.9 % SODIUM CHLORIDE 50 ML VIAL IV (05:46)
== END 2024-10-10 06:31 | disposition home or self-care (01) ==
PROVIDERS: Emergency Provider Emergency Medicine; PCP Family Medicine
DX: R42 Dizziness and giddiness (principal); I10 Essential (primary) hypertension; E04.1 Nontoxic single thyroid nodule
CPT/HCPCS: 70450; 70496; 70498; 80053; 84484; 85025; 93005; 99285; Q9967

== ENCOUNTER 2024-10-16 10:30 | Outpatient (CLI) | payer MEDICARE, SELFPAY ==
--- OUTSIDE RECORDS SUMMARY | 2007-02-05 06:39 | XMS_ITS | Continuity of Care Document ---
Author Name DOD[facility]GA Organization [facility] Care Team Providers Care Nephrologist Name Role Phone [facility] Unavailable Unavailable Immunizations Combined list of available immunizations from the Department of Defense and Veterans Affairs facilities. Immunization Series Date Given Administered By Site Reaction Lot Number CVX Code Drug Powder Mixer Status Comments Source FLU,3 YRS (HISTORICAL) 2006 88 complet [facility] [place] [facility]
--- OUTSIDE RECORDS SUMMARY | 2024-07-14 09:00 | XMS_ITS | Encounter Summary ---
Author Organization [facility] Address [address] [id number] Care Team Providers Care Thoracic Surgeon Name Role Phone Luis Lawson MD Primary Care Provider Reason for Referral * Genetic Testing (Routine) - Authorized Specialty Diagnoses / Procedures Referred By Contac t Referred To Contact Lab Diagnoses Autoimmune hepatitis (CMS/HCC) Procedures IgG, Plasma Jenny Alberto MD [address] [address] Phone: tel: fax: Referral ID Status Reason Start Date Expiration Date V isits Requested Visits Authorized [id number] Authorized 07/14/2024 01/13/2026 1 1 * Consultation (Routine) - Authorized Specialty Diagnoses / Procedures Referred By Contac t Referred To Contact Diagnoses Autoimmune hepatitis (CMS/HCC) Nausea Jenny Alberto MD [address] [address] Phone: tel: fax: Referral ID Status Reason Start Date Expiration Date V isits Requested Visits Authorized [id number] Authorized 07/14/2024 01/13/2026 1 1 * Genetic Testing (Routine) - Closed Specialty Diagnoses / Procedures Referred By Contac t Referred To Contact Lab Diagnoses Autoimmune hepatitis (CMS/HCC) Procedures IgG, Plasma Jenny Alberto MD [address] [facility] [address] [place] [address] Phone: tel: fax: Referral ID Status Reason Start Date Expiration Date Visits Re quested Visits Authorized [id number] Closed 07/14/2024 01/13/2026 1 1 Reason for Visit * Reason Comments Nausea and vomiting, unspecified vomitin g type Autoimmune hepatitis (CMS/HCC) Encounter Details Date Type Department Care Team (Late st Contact Info) Description 07/14/2024 9:00 AM EDT Office Visit [place] [facility] Medicine [facility]ties [address] [place] [address] Jenny Alberto MD [address] [facility] [address] [place] [address] Autoimmune hepatitis (CMS/HCC) (Primary Dx); Nausea; Other specified hypothyroidism; Encounter for halfway current use of azathioprine; On prednisone therapy [...] diverticulitis, in May- went to ER In [facility] 06/05/24 No abd pain,hematochezia Reports improvement of nausea, but still has nausea, thus he stopped azathioprine on his own. He has been off azathioprine for 2 weeks EGD- I reviewed report of EGD done by Dr. Cabezas 06/02/24 at [place]: Normal esophagus PHG- gastric biopsies: reactive gastropathy [...] - TSH Reflex FT4; Future Encounter for halfway current use of azathioprine On prednisone therapy [...] has appointment this week with (surgeon in [place]) who will be coordinating with Dr. Cabezas [...] Description 11/03/2024 8:40 AM EDT Office Visit [facility] Medicine Specialties [address] [place] [address] Jenny Alberto MD [address] [facility] [address] [place] [address] 11/05/2024 9:00 AM EDT Office Visit [facility] Medicine Specialties [address] [place] [address] Myles Dyer MD [address] [facility] [address] [place] [address] Scheduled Orders Name Type Priority Associated Diagnoses [...] - 4.20 uIU/mL 07/14/2024 11:20 AM EDT [facility] Blood Venous blood specimen / Unknown Venipuncture / Unknown 07/14/2024 10:01 AM EDT 07/14/2024 10:01 AM EDT Jenny Alberto MD LAB BLOOD ORDERABLES Final Result [facility] [address] [place] [address] * IgG, Plasma (07/14/2024 10:01 AM EDT) IGG 1,222 720 - 1,589 mg/dL 07/14/2024 11:20 AM EDT [facility] Blood Venous blood specimen / Unknown Venipuncture / Unknown 07/14/2024 10:01 AM EDT 07/14/2024 10:01 AM EDT Jenny Alberto MD LAB BLOOD ORDERABLES Final Result [facility] [address] [place] [address] * (ABNORMAL) Comprehensive metabolic panel (07/14/2024 10:01 AM EDT) Glucose, Plasma 102(H) 74 - 99 mg/dL 07/14/2024 11:20 AM EDT [facility] BUN, Plasma 16 8 - 23 mg/dL 07/14/2024 11:20 AM EDT [facility] Creatinine, Plasma 0.81 0.70 - 1.20 mg/dL 07/14/2024 11:20 AM EDT [facility] BUN/Creatinine Ratio 07/14/2024 11:20 AM EDT [facility] Sodium, Plasma 142 136 - 145 mmol/L 07/14/2024 11:20 AM EDT [facility] Potassium, Plasma 4.0 3.6 - 4.9 mmol/L 07/14/2024 11:20 AM EDT [facility] Chloride, Plasma 106 97 - 107 mmol/L 07/14/2024 11:20 AM EDT [facility] CO2, Plasma 25 22 - 29 mmol/L 07/14/2024 11:20 AM EDT [facility] Anion Gap 11 6 - 16 mmol/L 07/14/2024 11:20 AM EDT [facility] Total Calcium, Plasma 9.6 8.9 - 10.2 mg/dL 07/14/2024 11:20 AM EDT [facility] Total Protein 7.1 6.3 - 7.9 g/dL 07/14/2024 11:20 AM EDT [facility] Albumin, Plasma 4.1 3.5 - 5.2 g/dL 07/14/2024 11:20 AM EDT [facility] AST, Plasma 30 10 - 50 U/L 07/14/2024 11:20 AM EDT [facility] ALT, Plasma 36 10 - 50 U/L 07/14/2024 11:20 AM EDT [facility] Alkaline Phosphatase, Plasma 79 40 - 115 U/L 07/14/2024 11:20 AM EDT [facility] Total Bilirubin, Plasma 0.6 0.2 - 1.1 mg/dL 07/14/2024 11:20 AM EDT [facility] eGFRcr 91.9 mL/min/1.7 3m*2 07/14/2024 11:20 AM EDT [facility] Comment:Reported eGFRcr in m L/min/1.73m2 is based the CKD-EPI 2020 equation that does not use a race coefficient. 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
--- OUTSIDE RECORDS SUMMARY | 2024-09-22 09:00 | XMS_ITS | Encounter Summary ---
Author Organization [facility] Address [address] [place] [address] Care Team Providers Care Ferry Terminal Supervisor Name Role Phone Luis Lawson MD Primary Care Provider Reason for Referral * Consultation (Routine) - Authorized Specialty Diagnoses / Procedures Referred By Contac t Referred To Contact Diagnoses Autoimmune hepatitis (CMS/HCC) Other cirrhosis of liver (CMS/HCC) Bjorn Cano MD [address] [address] Phone: tel: fax: Referral ID Status Reason Start Date Expiration Date V isits Requested Visits Authorized [id number] Authorized 09/22/2024 03/24/2026 1 1 * Imaging (Routine) - Pending Review Specialty Diagnoses / Procedures Referred By Contac t Referred To Contact Radiology Diagnoses Other cirrhosis of liver (CMS/HCC) Procedures US Liver Screen Bjorn Cano MD [address] [address] Phone: tel: fax: Referral ID Status Reason Start Date Expiration Date V isits Requested Visits Authorized [id number] Pending Review 09/22/2024 03/24/2026 1 1 * Genetic Testing (Routine) - Closed Specialty Diagnoses / Procedures Referred By Contac t Referred To Contact Lab Diagnoses Autoimmune hepatitis (CMS/HCC) Procedures IgG Bjorn Cano MD [address] [facility] [address] [place] [address] Phone: tel: fax: Referral ID Status Reason Start Date Expiration Date Visits Re quested Visits Authorized [id number] Closed 09/22/2024 03/24/2026 1 1 Reason for Visit * Reason Comments Autoimmune Hepatitis Nausea Vomiting Encounter Details Date Type Department Care Team (Late st Contact Info) Description 09/22/2024 9:00 AM EDT [facility] Visit [facility] [address] [place] [address] Jenny Alberto MD [address] [facility] [address] [place] [address] Autoimmune hepatitis (CMS/HCC) (Primary Dx); Other cirrhosis of liver (CMS/HCC); Nausea; Elevated liver enzymes; High total IgG; History of diverticulitis Social History Tobacco Use Types Packs/Day Years [...] Sign Reading Time Taken Comments Blood Pressure 139/85 09/22/2024 9:00 AM EDT Pulse 64 09/22/2024 9:00 AM EDT Temperature 36.7 C (98.1 F) 09/22/2024 9:00 AM EDT Respiratory Rate - - Oxygen Saturation 96% 09/22/2024 9:00 AM EDT Inhaled Oxygen Concentration - - Weight 74.4 kg (164 lb 0.4 oz) 09/22/2024 9:00 A M EDT Height 175.3 cm (5' 9 ) 09/22/2024 9:00 AM EDT Body Mass Index 24.22 09/22/2024 9:00 AM EDT documented in this encounter Functional Status * Over the past 2 weeks, how often have you been bothered by any of the following problems? Question Answer Date of Assessment Author Little interest or pleasure in doing things Not at all 09/22/2024 9:08 AM JAREDT Harsha Reina Feeling down, depressed, or hopeless Not at all 09/22/2024 9:08 AM EDT Harsha Reina Patient Health Questionnaire -2 Score 0 09/22/2024 9:08 AM JAREDT Harsha Reina * Question Answer Date of Assessment Author Trouble falling or staying a sleep, or sleeping too much Not at all 09/22/2024 9:08 AM JAREDT Harsha Reina Feeling tired or having edyta le energy Not at all 09/22/2024 9:08 AM EDT Harsha Reina Poor appetite or overeating Not at all 09/22/2024 9: 08 AM JAREDT Harsha Reina Feeling bad about yourself - or that you are a failure or have let yourself or your family down Not at all 09/22/2024 9:08 AM JAREDT Harsha Reina Trouble concentrating on thi ngs, such as [...] as of this encounter Miscellaneous Notes * Assessment & Plan Note - Bjorn Cano MD - 09/22/2024 9:00 AM EDTAssociated Problem(s): Autoimmune hepatitis (CMS/HCC) Orders: Comprehensive metabolic panel; Future CBC and differential; Future Protime-INR; Future IgG; Future Follow Up GI; Future * Progress Notes - Bjorn Cano MD - 09/22/2024 9:00 AM EDT Subjective Patient ID: Magen Patino is a 73 y.o. male. Chief Complaint Patient presents with Autoimmune Hepatitis Nausea Vomiting Magen Patino is a 73 y.o. male with a PMH of AIH, compensated cirrhosis, CAD, and HLD. Here for routine follow-up of AH and cirrhosis. Last office visit 07/14/[address] Alberto. Around that time he was having persistent nausea and vomiting dating back to 05/2024. He was seen and treated in the ER for diverticulitis in May whichwas thought to be the cause of nausea but he also stopped taking his azathioprine. After resolutionof diverticulitis he had follow-up in July and he was restarted on azathioprine but decreased from 50 mg to 25 mg to see if this improved nausea. He stopped azathioprine within 1 week due to recurrence of nausea. He has been off azathioprine since mid July. He has continued prednisone 5 mg daily. Labs from 07/25/2024 show AST 31, ALT 27, ALP 70. IgG 1212 Labs from show AST 54, ALT 47, ALP 107 Of note during last liver ultrasound screen he was found to have small bilateral kidney cysts and follow-up renal ultrasound was recommended. Renal ultrasound 07/30/2024 with complex septated cyst ofright kidney. Follow up recommended in 6 months Decompensation History No prior history of decompensation. Confirmed during this visit. Prior Testing Fibroscan: last completed 01/21/2024. CAP to 230 dB/M and LSM 19.2 kPa US Liver Screen: completed 07/14/2024 no focal lesions identified EGD: Completed 06/02/[address] Vargas at [place]. No EV. PHG with reactive gastropathy. The following portions of the chart were reviewed this encounter and updated as appropriate: Tobacco Allergies Meds Problems Med Hx Surg Hx Fam Hx Review of Systems 14-point review of systems was negative, except as per HPI. Objective Visit Vitals BP 139/85 Pulse 64 Temp 36.7 ??C (98.1 ??F) (Oral) SpO2 96% Physical Exam: General Awake, NAD EYES EOMI, sclera anicteric HEAD Atraumatic. No temporal wasting ENT Hearing grossly normal. CV Regular rate and rhythm RES Normal effort. On room air. GI Soft. NT/ND. No rebound, guarding. No ascites SUHAIL AAOx4. No gross deficits. EXT No cyanosis. No edema SKIN No jaundice. No spider angiomata. No palmar erythema. Tanned PSY Appropriate mood and affect Assessment/Plan Magen Patino is a 73 y.o. male with a PMH of AIH, compensated cirrhosis, CAD, and HLD. Here for routine follow-up of AH and cirrhosis. Assessment & Plan Autoimmune hepatitis (CMS/HCC) Orders: Comprehensive metabolic panel; Future CBC and differential; Future Protime-INR; Future IgG; Future Follow Up GI; Future Other cirrhosis of liver (CMS/HCC) MELD 3.0: 8 at 05/23/2024 9:38 AM MELD-Na: 8 at 05/23/2024 9:38 AM Calculated from: Serum Creatinine: 1.03 mg/dL at 05/23/2024 9:38 AM Serum Sodium: 141 mmol/L (Using max of 137 mmol/L) at 05/23/2024 9:38 AM Total Bilirubin: 0.9 mg/dL (Using min of 1 mg/dL) at 05/23/2024 9:38 AM Serum Albumin: 4.4 g/dL (Using max of 3.5 g/dL) at 05/23/2024 9:38 AM INR(ratio): 1.2 at 05/23/2024 9:38 AM Age at listing (hypothetical): 73 years Sex: Male at 05/23/2024 9:38 AM Orders: US Liver Screen; Future Follow Up GI; Future Alpha Fetoprotein, Serum; Future Autoimmune hepatitis Compensated cirrhosis Elevated liver enzymes Elevated igG - Cirrhosis secondary to AIH. Previously on azathioprine 25 mg daily but self- discontinued July 2024. On prednisone 5 mg daily - LFTs uptrending from 07/25/24 to 08/29/24. IgG WNL from 07/2024 but no repeat for review. - No history of decompensating events - Last EGD 06/02/[address] Vargas at [place]. No EV. PHG with reactive gastropathy. - Alcohol: Abstinence recommended - Health maintenance: Hep A immune. Hep B non-immune, recommend vaccination. Avoid NSAIDs. Ok for <2 g Tylenol daily. Low salt diet. Avoid raw shellfish. High protein diet. HCC screening - US liver screen without focal lesions - AFP 01/2024 WNL PLAN: - Repeat CMP, CBC, INR, and IgG - Pending labs results consider initiation of Myfortic and/or prednisone taper - Due for US Liver 01/2025 - Repeat AFP RTC 6-8 weeks Bjorn Cano MD Hepatology Fellow Cosigned by Jenny Alberto MD at 09/22/2024 7:12 PM EDT Associated attestation - Jenny Alberto MD - 09/22/2024 7:12 PM EDT I saw and evaluated the patient with the resident/fellow. I discussed the case with the resident/fellow and agree with the findings and plan as documented. Reviewed labs after clinic visit- significantly elevated liver enzymes and IgG (ALT from 50s/60s [id number])- increase prednisone to 30mg/day, start myfortic 180mg bid for now (increase gradually). Repeat labs (CBC,CMP,igG) in 2 weeeks. Labs in last 18 hours CBC WBC 5.85 Hb 14.8 Plt 128 (L) Hct 44.6 ANC 3.54 INR 1.1, PTT ??, Anti-Xa ?? BMP Na 140 Cl 103 BUN 23 Glu 93 K 4.4 Co2 28 Cr 0.93 Ca 9.9 iCa ?? Mg ??, Phos ?? Lactate ?? LFT AST 95 (H) AlkPhos 117 (H) T Prot 7.2 ALT 115 (H) Bili 0.9 Alb ?? D.Bili ?? documented in this encounter Plan of Treatment Upcoming Encounters Date Type Department Care Team (Late st Contact Info) Description 11/03/2024 8:40 AM EDT Office Visit [facility] Medicine Specialties [address] [place] [address] Jenny Alberto MD [address] [facility] [address] [place] [phone] 11/05/2024 9:00 AM EDT Office Visit [facility] Medicine Specialties [address] [place] [address] Myles Dyer MD [address] [facility] [address] [place] [address] Scheduled Orders Name Type Priority Associated Diagnoses Orde r Schedule US Liver Screen Imaging Routine Other cirrhosis of liver (CMS/HCC) Expected: 01/12/2025 (Approximate), Expires: 03/26/2026 Alpha Fetoprotein, Serum Lab Routine Other cirrhosis of liver (CMS/HCC) Expected: 09/22/2024 (Approximate), Expires: 03/26/2026 Scheduled Referrals Name Type Priority Associated Diagnoses Orde r Schedule Follow Up GI Outpatient Referral Routine Autoimmune hepatitis (CMS/HCC) Other cirrhosis of liver (CMS/HCC) Expected: 11/03/2024, Expires: 10/23/2025 documented as of this encounter Results * (ABNORMAL) IgG (09/22/2024 10:25 AM EDT) IGG 1,608(H) 720 - 1,589 mg/dL 09/22/2024 12:25 PM EDT [facility] Blood Venous blood specimen / Unknown Venipuncture / Unknown 09/22/2024 10:25 AM EDT 09/22/2024 10:25 AM EDT us Bjorn Cano MD LAB BLOOD ORDERABLES Final Resul t Performing Organization Address [facility] de Phone Number [facility] [address] [place] [address] * (ABNORMAL) Protime-INR (09/22/2024 10:25 AM EDT) Prothrombin Time 14.7(H) 12.0 - 14.3 sec LAB COAGULATION METHOD 09/22/2024 12:02 PM EDT [facility] INR 1.1 0.9 - 1.1 LAB COAGULATION METHOD 09/22/2024 12:02 PM EDT [facility] Blood Venous blood specimen / Unknown Venipuncture / Unknown 09/22/2024 10:25 AM EDT 09/22/2024 10:25 AM EDT Narrative [facility] - 09/22/2024 12:02 PM EDT OPTIMAL INR RANGES FOR PATIENT ON ORAL ANTICOAGULANT THERAPY Prevention of venous thromboembolism INR 2.0 to 3.0 In patients with heart disease: Atrial fibrillation INR 2.0 to 3.0 Valvular heart disease INR 2.0 to 3.0 Tissue heart valves INR 2.0 to 3.0 Mechanical prosthetic valves INR 2.5 to 3.5 Prevention of recurrent AK INR 2.5 to 3.5 us Bjorn Cano MD LAB BLOOD ORDERABLES Final Resul t Performing Organization Address City/[facility]/ZIP Co de Phone Number [facility] [address] [place] [phone] * (ABNORMAL) CBC and differential (09/22/2024 10:25 AM EDT) [facility] Signature WBC Count 5.85 3.70 - 10.30 10*3/uL LAB HEMATOLOGY METHOD 09/22/2024 12:24 PM EDT [facility] RBC Count 4.69 4.60 - 6.10 10*6/uL LAB HEMATOLOGY METHOD 09/22/2024 12:24 PM EDT [facility] HGB 14.8 13.7 - 17.5 g/dL LAB HEMATOLOGY METHOD 09/22/2024 12:24 PM EDT [facility] HCT 44.6 40.0 - 51.0 % LAB HEMATOLOGY METHOD 09/22/2024 12:24 PM EDT [facility] Platelet Count 128(L) 155 - 369 10*3/uL LAB HEMATOLOGY METHOD 09/22/2024 12:24 PM EDT [facility] MCV 95 79 - 98 fL LAB HEMATOLOGY METHOD 09/22/2024 12:24 PM EDT [facility] MCH 31.6 26.0 - 32.0 pg LAB HEMATOLOGY METHOD 09/22/2024 12:24 PM EDT [facility] MCHC 33.2 30.7 - 35.5 g/dL LAB HEMATOLOGY METHOD 09/22/2024 12:24 PM EDT [facility] RDW 14.2 11.5 - 14.5 % LAB HEMATOLOGY METHOD 09/22/2024 12:24 PM EDT [facility] MPV 10.6 8.8 - 12.5 fL LAB HEMATOLOGY METHOD 09/22/2024 12:24 PM EDT [facility] nRBC 0.0 <=0.0 per 100 WBCs LAB HEMATOLOGY METHOD 09/22/2024 12:24 PM EDT [facility] Differential Type Automated LAB HEMATOLOGY METHOD 09/22/2024 12:24 PM EDT [facility] Neutrophils % 61 % LAB HEMATOLOGY METHOD 09/22/2024 12:24 PM EDT [facility] Lymphocytes % 27 % LAB HEMATOLOGY METHOD 09/22/2024 12:24 PM EDT [facility] Monocytes % 9 % LAB HEMATOLOGY METHOD 09/22/2024 12:24 PM EDT [facility] Eosinophils % 2 % LAB HEMATOLOGY METHOD 09/22/2024 12:24 PM EDT [facility] Basophils % 1 % LAB HEMATOLOGY METHOD 09/22/2024 12:24 PM EDT [facility] Immature Granulocytes % 0 % LAB HEMATOLOGY METHOD 09/22/2024 12:24 PM EDT [facility] Neutrophils Absolute 3.54 1.60 - 6.10 10*3/uL LAB HEMATOLOGY METHOD 09/22/2024 12:24 PM EDT [facility] Lymphocytes Absolute 1.60 1.20 - 3.90 10*3/uL LAB HEMATOLOGY METHOD 09/22/2024 12:24 PM EDT [facility] Monocytes Absolute 0.55 0.30 - 0.90 10*3/uL LAB HEMATOLOGY METHOD 09/22/2024 12:24 PM EDT [facility] Eosinophils Absolute 0.11 0.00 - 0.50 10*3/uL LAB HEMATOLOGY METHOD 09/22/2024 12:24 PM EDT [facility] Basophils Absolute 0.04 0.00 - 0.10 10*3/uL LAB HEMATOLOGY METHOD 09/22/2024 12:24 PM EDT [facility] Immature Granulocytes Absolute 0.01 0.00 - 0.06 10*3/uL LAB HEMATOLOGY METHOD 09/22/2024 12:24 PM EDT [facility] Blood Venous blood specimen / Unknown Venipuncture / Unknown 09/22/2024 10:25 AM EDT 09/22/2024 10:25 AM EDT Narrative [facility] - 09/22/2024 12:24 PM EDT Therapeutic decision making should be based on absolute values, rather than percentages. us Bjorn Cano MD LAB BLOOD ORDERABLES Final Resul t [facility] [address] [place] [address] * (ABNORMAL) Comprehensive metabolic panel (09/22/2024 10:25 AM EDT) Glucose, Plasma 93 74 - 99 mg/dL 09/22/2024 11:58 AM EDT [facility] BUN, Plasma 23 8 - 23 mg/dL 09/22/2024 11:58 AM EDT [facility] Creatinine, Plasma 0.93 0.70 - 1.20 mg/dL 09/22/2024 11:58 AM EDT [facility] BUN/Creatinine Ratio 25 09/22/2024 11:58 AM EDT [facility] Sodium, Plasma 140 136 - 145 mmol/L 09/22/2024 11:58 AM EDT [facility] Potassium, Plasma 4.4 3.6 - 4.9 mmol/L 09/22/2024 11:58 AM EDT [facility] Chloride, Plasma 103 97 - 107 mmol/L 09/22/2024 11:58 AM EDT [facility] CO2, Plasma 28 22 - 29 mmol/L 09/22/2024 11:58 AM EDT [facility] Anion Gap 9 6 - 16 mmol/L 09/22/2024 11:58 AM EDT [facility] Total Calcium, Plasma 9.9 8.9 - 10.2 mg/dL 09/22/2024 11:58 AM EDT [facility] Total Protein 7.2 6.3 - 7.9 g/dL 09/22/2024 11:58 AM EDT [facility] Albumin, Plasma 4.2 3.5 - 5.2 g/dL 09/22/2024 11:58 AM EDT [facility] AST, Plasma 95(H) 10 - 50 U/L 09/22/2024 11:58 AM EDT [facility] ALT, Plasma 115(H) 10 - 50 U/L 09/22/2024 11:58 AM EDT [facility] Alkaline Phosphatase, Plasma 117(H) 40 - 115 U/L 09/22/2024 11:58 AM EDT [facility] Total Bilirubin, Plasma 0.9 0.2 - 1.1 mg/dL 09/22/2024 11:58 AM EDT [facility] eGFRcr 85.6 mL/min/1.7 3m*2 09/22/2024 11:58 AM EDT [facility] Comment:Reported eGFRcr in m L/min/1.73m2 is based the CKD-EPI 2020 equation that does not use a race coefficient. Blood Venous blood specimen / Unknown Venipuncture / Unknown 09/22/2024 10:25 AM EDT 09/22/2024 10:25 AM EDT us Bjorn Cano MD LAB BLOOD ORDERABLES Final Resul t [facility] [address] [place] [address] documented in this encounter Visit Diagnoses Diagnosis Autoimmune hepatitis (CMS/HCC)- Primary Autoimmune hepatitis Other cirrhosis of liver (CMS/HCC) Nausea Nausea alone Elevated liver enzymes Other nonspecific abnormal serum enzyme levels High total IgG History of diverticulitis documented in this encounter Additional Health Concerns Assessment Noted Time PHQ-9 Depression Total Score: 0 09/23/19 9:08 AM EDT A fall risk assessment has been complete d for the patient 09/22/2024 9:09 AM EDT A Body Mass Index follow-up plan has been documented for the patient 09/23/2024 1:05 AM EDT documented as of this encounter Care Teams [employer] Supervisor Relationship Specialty Start Date End Date Luis Lawson MD [address] [place] [address] PCP - General 02/25/24 documented as of this encounter
--- OUTSIDE RECORDS SUMMARY | 2024-09-22 10:40 | XMS_ITS | Encounter Summary ---
Author Organization Healthcare Address [address] [place] [place] [address] Care Team Providers Care Direct Support Worker Name Role Phone Luis Lawson MD Primary Care Provider [phone] Reason for Visit * Genetic Testing (Routine) - Closed Specialty Diagnoses / Procedures Referred By Contac t Referred To Contact Lab Diagnoses Autoimmune hepatitis (CMS/HCC) Procedures IgG Bjorn Cano MD [address] [place] [address] Phone: tel: fax: Referral ID Status Reason Start Date Expiration Date Visits Re quested Visits Authorized [id number] Closed 09/22/2024 03/24/2026 1 1 Encounter Details Date Type Department Care Team (Latest Contact Info) Description 09/22/2024 10:40 AM EDT Clinical Support [facility] [address] [place] [address] Autoimmune hepatitis (CMS/HCC) Social History [...] much Not at all 09/22/2024 9:08 AM Hasrha Brar Feeling tired or having edyta le [...] Description 11/03/2024 8:40 AM EDT Office Visit [facility] Medicine Specialties [address] [place] [address] Jenny Alberto MD [address] [place] [address] 11/05/2024 9:00 AM EDT Office Visit [facility] Medicine Specialties [address] [place] [address] Myles Dyer MD [address] [facility] [facility] [address] [place] [address] documented as of this encounter [...] - 1,589 mg/dL 09/22/2024 12:25 PM EDT [facility] Blood Venous blood specimen / Unknown Venipuncture / Unknown 09/22/2024 10:25 AM EDT 09/22/2024 10:25 AM EDT Bjorn Cano MD LAB BLOOD ORDERABLES Final Resul t [facility] [address] [place] [address] * (ABNORMAL) CBC and differential (09/22/2024 10:25 AM EDT) WBC Count 5.85 3.70 - 10.30 10*3/uL LAB HEMATOLOGY METHOD 09/22/2024 12:24 PM EDT [facility] RBC Count 4.69 4.60 - 6.10 10*6/uL LAB HEMATOLOGY METHOD 09/22/2024 12:24 PM EDT [facility] HGB 14.8 13.7 - 17.5 g/dL LAB HEMATOLOGY METHOD 09/22/2024 12:24 PM EDT [facility] HCT 44.6 40.0 - 51.0 % LAB HEMATOLOGY METHOD 09/22/2024 12:24 PM EDT [facility] Platelet Count 128(L) 155 - 369 10*3/uL LAB HEMATOLOGY METHOD 09/22/2024 12:24 PM EDT [facility] MCV 95 79 - 98 fL LAB HEMATOLOGY METHOD 09/22/2024 12:24 PM EDT [facility] MCH 31.6 26.0 - 32.0 pg LAB HEMATOLOGY METHOD 09/22/2024 12:24 PM EDT [facility] MCHC 33.2 30.7 - 35.5 g/dL LAB HEMATOLOGY METHOD 09/22/2024 12:24 PM EDT [facility] RDW 14.2 11.5 - 14.5 % LAB HEMATOLOGY METHOD 09/22/2024 12:24 PM EDT [facility] MPV 10.6 8.8 - 12.5 fL LAB HEMATOLOGY METHOD 09/22/2024 12:24 PM EDT [facility] nRBC 0.0 <=0.0 per 100 WBCs LAB HEMATOLOGY METHOD 09/22/2024 12:24 PM EDT [facility] Differential Type Automated LAB HEMATOLOGY METHOD 09/22/2024 12:24 PM EDT [facility] Neutrophils % 61 % LAB HEMATOLOGY METHOD 09/22/2024 12:24 PM EDT [facility] Lymphocytes % 27 % LAB HEMATOLOGY METHOD 09/22/2024 12:24 PM EDT [facility] Monocytes % 9 % LAB HEMATOLOGY METHOD 09/22/2024 12:24 PM EDT [facility] Eosinophils % 2 % LAB HEMATOLOGY METHOD 09/22/2024 12:24 PM EDT [facility] Basophils % 1 % LAB HEMATOLOGY METHOD 09/22/2024 12:24 PM EDT [facility] Immature Granulocytes % 0 % LAB HEMATOLOGY METHOD 09/22/2024 12:24 PM EDT [facility] Neutrophils Absolute 3.54 1.60 - 6.10 10*3/uL LAB HEMATOLOGY METHOD 09/22/2024 12:24 PM EDT [facility] Lymphocytes Absolute 1.60 1.20 - 3.90 10*3/uL LAB HEMATOLOGY METHOD 09/22/2024 12:24 PM EDT [facility] Monocytes Absolute 0.55 0.30 - 0.90 10*3/uL LAB HEMATOLOGY METHOD 09/22/2024 12:24 PM EDT [facility] Eosinophils Absolute 0.11 0.00 - 0.50 10*3/uL LAB HEMATOLOGY METHOD 09/22/2024 12:24 PM EDT [facility] Basophils Absolute 0.04 0.00 - 0.10 10*3/uL LAB HEMATOLOGY METHOD 09/22/2024 12:24 PM EDT [facility] Immature Granulocytes Absolute 0.01 0.00 - 0.06 10*3/uL LAB HEMATOLOGY METHOD 09/22/2024 12:24 PM EDT [facility] Blood Venous blood specimen / Unknown Venipuncture / Unknown 09/22/2024 10:25 AM EDT 09/22/2024 10:25 AM EDT Narrative [facility] - 09/22/2024 12:24 PM EDT Therapeutic decision making should be based on absolute values, rather than percentages. us Bjorn Cano MD LAB BLOOD ORDERABLES Final Resul t [facility] [address] [place] [address] * (ABNORMAL) Protime-INR (09/22/2024 10:25 AM EDT) Prothrombin Time 14.7(H) 12.0 - 14.3 sec LAB COAGULATION METHOD 09/22/2024 12:02 PM EDT [facility] INR 1.1 0.9 - 1.1 LAB COAGULATION METHOD 09/22/2024 12:02 PM EDT [facility] Blood Venous blood specimen / Unknown Venipuncture / Unknown 09/22/2024 10:25 AM EDT 09/22/2024 10:25 AM EDT Narrative [facility] - 09/22/2024 12:02 PM EDT OPTIMAL INR RANGES FOR PATIENT ON ORAL ANTICOAGULANT THERAPY Prevention of venous thromboembolism INR 2.0 to 3.0 In patients with heart disease: Atrial fibrillation INR 2.0 to 3.0 Valvular heart disease INR 2.0 to 3.0 Tissue heart valves INR 2.0 to 3.0 Mechanical prosthetic valves INR 2.5 to 3.5 Prevention of recurrent [place] INR 2.5 to 3.5 us Bjorn Cano MD LAB BLOOD ORDERABLES Final Resul t [facility] [address] [place] [address] * (ABNORMAL) Comprehensive metabolic panel (09/22/2024 10:25 AM EDT) Glucose, Plasma 93 74 - 99 mg/dL 09/22/2024 11:58 AM EDT [facility] BUN, Plasma 23 8 - 23 mg/dL 09/22/2024 11:58 AM EDT [facility] Creatinine, Plasma 0.93 0.70 - 1.20 mg/dL 09/22/2024 11:58 AM EDT [facility] BUN/Creatinine Ratio 25 09/22/2024 11:58 AM EDT [facility] Sodium, Plasma 140 136 - 145 mmol/L 09/22/2024 11:58 AM EDT [facility] Potassium, Plasma 4.4 3.6 - 4.9 mmol/L 09/22/2024 11:58 AM EDT [facility] Chloride, Plasma 103 97 - 107 mmol/L 09/22/2024 11:58 AM EDT [facility] CO2, Plasma 28 22 - 29 mmol/L 09/22/2024 11:58 AM EDT [facility] Anion Gap 9 6 - 16 mmol/L 09/22/2024 11:58 AM EDT [facility] Total Calcium, Plasma 9.9 8.9 - 10.2 mg/dL 09/22/2024 11:58 AM EDT [facility] Total Protein 7.2 6.3 - 7.9 g/dL 09/22/2024 11:58 AM EDT [facility] Albumin, Plasma 4.2 3.5 - 5.2 g/dL 09/22/2024 11:58 AM EDT [facility] AST, Plasma 95(H) 10 - 50 U/L 09/22/2024 11:58 AM EDT [facility] ALT, Plasma 115(H) 10 - 50 U/L 09/22/2024 11:58 AM EDT [facility] Alkaline Phosphatase, Plasma 117(H) 40 - 115 U/L 09/22/2024 11:58 AM EDT [facility] Total Bilirubin, Plasma 0.9 0.2 - 1.1 mg/dL 09/22/2024 11:58 AM EDT [facility] eGFRcr 85.6 mL/min/1.7 3m*2 09/22/2024 11:58 AM EDT [facility] Comment:Reported eGFRcr in m L/min/1.73m2 is based the CKD-EPI 2020 equation that does not use a race coefficient. Blood Venous blood specimen / Unknown Venipuncture / Unknown 09/22/2024 10:25 AM EDT 09/22/2024 10:25 AM EDT us Bjorn Cano MD LAB BLOOD ORDERABLES Final Resul t [facility] [address] [place] [address] documented in this encounter Visit Diagnoses Diagnosis [...] as of this encounter Care Teams Direct Support Worker Relationship Specialty Start Date End Date Luis Lawson MD [address] [place] [id number] PCP - General 02/25/24 documented as of this encounter
[2024-10-16 14:29] LABS: Free T4 (Free Thyroxine) 0.76 ng/dl (0.78-2.19)
[2024-10-16 14:44] LABS: Thyroid Stimulating Hormone 5.49 uIU/mL (0.465-4.68)
--- OUTSIDE RECORDS SUMMARY | 2024-10-17 11:27 | XMS_ITS | Clinical Summary ---
Author Organization [facility] Address [address] [place] [address] Care Team Providers Care Marble Setter Name Role Phone Luis Lawson MD Primary Care Provider [phone] Allergies No known active allergies Medications amLODIPine [...] in the future 237 mL 11 05/24/19 25 Active Additional Information Patient not [...] Encounters Date Type Department Care Team Description 10/15/2024 Results Follow-Up [facility] Medicine Specialties [address], [address] [place] [address] Bjorn Cano MD 10/13/2024 Orders Only [facility] Medicine Specialties [address], [address] [place] [address] Lori Levi, RN Autoimmune hepatitis (CMS/HCC) 09/22/2024 10:40 AM EDT Clinical Support [facility] [address], [address] [place] [address] Autoimmune hepatitis (CMS/HCC) 09/22/2024 9:00 AM EDT Office Visit [facility] Medicine Specialties [address], [address] [place] [phone] Jenny Alberto MD Autoimmune hepatitis (CMS/HCC) (Primary Dx); Other cirrhosis of liver (CMS/HCC); Nausea; Elevated liver enzymes; High total IgG; History of diverticulitis 09/22/2024 Results Follow-Up [facility] Medicine Specialties [address], [address] [place] [address] Bjorn Cano MD 09/22/2024 Travel 09/01/2024 Telephone [facility] Specialties [address], [address] [place] [address] Caroline Tsang RN 08/29/2024 Orders Only [facility] Specialties [address], [address] [place] [address] Caroilne Tsang RN Autoimmune hepatitis (CMS/HCC) 07/30/2024 Telephone [facility] Specialties [address], [address] [place] [address] Lori Levi RN 07/30/2024 Orders Only [facility] Specialties [address], [address] [place] [address] Jenny Alberto MD 07/28/2024 Results Follow-Up [facility] Medicine Specialties [address], [address] [place] [address] Jenny Alberto MD 07/28/2024 Orders Only [facility] Medicine Specialties [address], [address] [place] [address] Jenny Alberto MD 07/25/2024 Orders Only [facility] Medicine Specialties [address], [address] [place] [address] Jenny Alberto MD from Last 3 Months [...] Description 11/03/2024 8:40 AM EDT Office Visit [facility] [address], [address] [place] [address] Jenny Alberto MD [address] [place] [address] 11/05/2024 9:00 AM EDT Office Visit [facility] [address], [address]nd [place] [address] Myles Dyer MD [address] [place] [address] Health Maintenance Due Date Last Done Comments [facility]-Medicare Annual Wellness (AWV) 1950 [facility]-Infant/Child/Adol SDOH Screenings 1950 [facility]- SDOH Screenings 1966 [facility]-Adult SDOH Screenings 1966 [facility]-Hepatitis A Vaccines (1 of 2 - Risk 2-dose series) 10/11/1967 [facility]-Pneumococcal Vaccine: 50+ Years (1 of 2 - PCV) 10/11/1967 [facility]-Zoster Vaccines (1 of 2) 10/11/1967 [facility]-DTaP,Tdap,and Td Vaccines (1 - Tdap) 05/15/1996 05/14/1996 [facility]-RSV Vaccine: 60+ Years or (1 - 1-dose 75+ series) 10/11/2023 ALD-[id number]-20 Vaccine (7 - Moderna risk 2023- season) [...] Date/Time Associated Diagnosis Comments IGG, PLASMA Routine 10/13/2024 7:56 AM EDT Autoimmune hepatitis (CMS/HCC) CBC WITH AUTO DIFFERENTIAL Routine 10/13/2024 7:56 AM EDT Autoimmune hepatitis (CMS/HCC) COMPREHENSIVE METABOLIC PANEL, PLASMA Routine 10/13/2024 7:56 AM EDT Autoimmune hepatitis (CMS/HCC) IGG, PLASMA [...] CBC W/DIFF Routine 07/25/2024 7:28 AM EDT HEPATITIS C ANTIBODY W/REFLEX TO HCV QUANT PCR Routine 01/21/2024 12:22 PM EST Unspecified cirrhosis of liver (CMS/HCC) from Last 3 Months or Most Recently Relevant to Health Maintenance Results * CBC and differential (10/13/2024 7:56 AM EDT) Only the most recent of2 resultswithin the time period is included. Blood Venous blood specimen / Unknown us Bjorn Caon MD LAB BLOOD ORDERABLES Final Resul t EXTERNAL LAB * IgG (10/13/2024 7:56 AM EDT) Only the most recent of3 resultswithin the time period is included. Blood Venous blood specimen / Unknown us Bjorn Cano MD LAB BLOOD ORDERABLES Final Resul t Performing Organization Address City/[facility] Co de Phone Number EXTERNAL LAB * Comprehensive metabolic panel (10/13/2024 7:56 AM EDT) Only the most recent of3 resultswithin the time period is included. Blood Venous blood specimen / Unknown us Bjorn Cano MD LAB BLOOD ORDERABLES Final Resul t Performing Organization Address [facility] de Phone Number EXTERNAL LAB * (ABNORMAL) Protime-INR (09/22/2024 10:25 AM EDT) Pathologist [facility] Prothrombin Time 14.7(H) 12.0 - 14.3 sec LAB COAGULATION METHOD 09/22/2024 12:02 PM EDT [facility] INR 1.1 0.9 - 1.1 LAB COAGULATION METHOD 09/22/2024 12:02 PM EDT [facility] Blood Venous blood specimen / Unknown Venipuncture / Unknown 09/22/2024 10:25 AM EDT 09/22/2024 10:25 AM EDT Narrative [facility] - 09/22/2024 12:02 PM [...] Resul t Performing Organization Address [facility] Co de Phone Number [facility] [address] [place] [address] * COMPLETE METABOLIC PROFILE (CMP) (07/25/2024 4:15 PM EDT) Jenny Alberto MD LAB BLOOD ORDERABLES Final Result * CBC W/DIFF (07/25/2024 7:28 AM EDT) Jenny Alberto MD LAB BLOOD ORDERABLES Final Result * Hepatitis C antibody (01/21/2024 12:22 PM EST) Hepatitis C Antibody Negative Negative 01/21/2024 3:15 PM EST [facility] Blood Venous blood specimen / Unknown Venipuncture / Unknown 01/21/2024 12:22 PM EST 01/21/2024 12:23 PM EST Jenny Alberto MD LAB BLOOD ORDERABLES Final Result [facility] [address] [place] [address] from Last 3 Months or Most Recently Relevant to Health Maintenance Insurance [facility] MEDICARE Care Teams Marble Setter Relationship Specialty Start Date End Date Luis Lawson MD [address] [place] [address] PCP - General 02/25/24
--- OUTSIDE RECORDS SUMMARY | 2024-10-17 11:28 | XMS_ITS | Encounter Summary ---
Author Organization Healthcare Address [address] [place] [address] Care Team Providers Care Cook Helper Pastry Name Role Phone Luis Lawson MD Primary Care Provider [phone] Reason for Referral * Genetic Testing (Routine) - Authorized Specialty Diagnoses / Procedures Referred By Contac t Referred To Contact Diagnoses Autoimmune hepatitis (CMS/HCC) Procedures IgG IgG Bjorn Cano MD [id number] [place] [address] Phone: tel: fax: Referral ID Status Reason Start Date Expiration Date V isits Requested Visits Authorized [id number] Authorized 09/22/2024 03/24/2026 1 1 Encounter Details Date Type Department Care Team (Late st Contact Info) Description 09/22/2024 Results Follow-Up [facility]ties [address], [address] [place] [address] Bjorn Cano MD [address] [facility] [address] [place] [address] Social History Tobacco Use Types [...] Description 11/03/2024 8:40 AM EDT Office Visit [facility] Medicine Specialties [address], [address] [place] [address] Jenny Alberto MD [address] [place] [address] 11/05/2024 9:00 AM EDT Office Visit [facility] Medicine Specialties [address], [address] [place] [address] Myles Dyer MD [address] [place] [address] Scheduled Orders Name Type Priority Associated Diagnoses Orde r Schedule Protime-INR Lab Routine Autoimmune hepatitis (CMS/HCC) Expected: 10/06/2024 (Approximate), Expires: 03/26/2026 documented as of this encounter Results * Comprehensive metabolic panel (10/13/2024 7:56 AM EDT) Blood Venous blood specimen / Unknown us Bjorn Cano MD LAB BLOOD ORDERABLES Final Resul t EXTERNAL LAB * CBC and differential (10/13/2024 7:56 AM EDT) Blood Venous blood specimen / Unknown us Bjorn Cano MD LAB BLOOD ORDERABLES Final Resul t EXTERNAL LAB * IgG (10/13/2024 7:56 AM EDT) Blood Venous blood specimen / Unknown us Bjorn Cano MD LAB BLOOD ORDERABLES Final Resul t Performing Organization Address [facility] Co de Phone Number EXTERNAL LAB documented in this encounter Visit [...] documented as of this encounter Care Teams Cook Helper Pastry Relationship Specialty Start Date End Date Luis Lawson MD [address] [place] [address] [place] [address] PCP - General 02/25/24 documented as of this encounter
--- OUTSIDE RECORDS SUMMARY | 2024-10-17 11:28 | XMS_ITS | Encounter Summary ---
Author Organization Healthcare Address [address] [place] [address] Care Team Providers Care Building Supervisor Name Role Phone Luis Lawson MD Primary Care Provider [phone] Encounter Details Date Type Department Care Team (Late st Contact Info) Description 09/01/2024 Telephone [facility] Specialties [address], [address]nd [place] [address] Caroline Tsang, RN Social History Tobacco Use [...] all 09/22/2024 9: 08 AM JAREDT Harsha eRina Feeling bad about yourself - or that [...] Harsha Brar documented as of this encounter Miscellaneous Notes * Telephone Encounter - Lori Levi RN - 10/15/2024 3:04 PM EDT Call pt remind him to get labs around 10/24/24 Fax orders to [facility] Requested ER notes * Telephone Encounter - Lori Levi RN - 10/15/2024 2:57 PM EDT Images from the original note were not included. S/W patient -Gave him Dr. Ansari's message -reports that he had to quit taking Myfortic d/t bad side effects, he was in ER on 2024 -BP 206/102, tried only taking 1 per day but could not sleep. ER said it was likely Myfortic causing issues -He reports that he may try azathioprine again, will discuss with Dr. Alberto at his f/u appt -no questions or concerns Suman Ansari MD Rose, Duana M, RN; Jenny Alberto MD Attempted to call patient but could not get through. Liver enzymes showing meld improvement. Recommend continuing Myfortic as is decrease prednisone to 25 mg per day. Repeat labs in 10 days. Suman Ansari MD * Telephone Encounter - Lori Levi RN - 10/13/2024 7:57 AM EDT Uploaded IgG CMP CBC Per [facility], no PT/INR drawn Requested AFP results * Telephone Encounter - Lori Levi RN [...] to the following: Comprehensive Metabolic Panel, Plasma [[id number]] on 08/29/2024 documented in this encounter Plan of Treatment Upcoming Encounters Date Type Department Care Team (Late st Contact Info) Description 11/03/2024 8:40 AM EDT Office Visit [place] [facility] Medicine Specialties [address], [address] [place] [address] Jenny Alberto MD [address] [facility] [address] [place] [address] 11/05/2024 9:00 AM EDT Office Visit [place] [facility] Medicine Specialties [address], [address] [place] [address] Myles Dyer MD [address] [facility] [address] [place] [address] documented as of this encounter Visit Diagnoses [...] documented as of this encounter Care Teams Building Supervisor Relationship Specialty Start Date End Date Luis Lawson MD [address] [place] [address] YESSICA Fischer [address] PCP - General 02/25/24 documented as of this encounter
--- OUTSIDE RECORDS SUMMARY | 2024-10-17 11:28 | XMS_ITS | Encounter Summary ---
Author Organization [facility] Address [address] [place] [address] Care Team Providers Care Commercial Artist Lettering Name Role Phone Luis Lawson MD Primary [...] AM Harsha Brar Feeling tired or having eydta le energy Not at all 09/22/2024 9:08 [...] Description 11/03/2024 8:40 AM EDT Office Visit [facility] Medicine Specialties [address], 2nd [place] [address] Jenny Alberto MD [address] [place] [address] 11/05/2024 9:00 AM EDT Office Visit [facility] Medicine Specialties [address], [address] [place] [address] Myles Dyer MD [address] [place] [address] documented as of this encounter Visit Diagnoses [...] documented as of this encounter Care Teams Commercial Artist Lettering Relationship Specialty Start Date End Date Luis Lawson MD [address] [place] [address] PCP - General 02/25/24 documented as of this encounter
--- OUTSIDE RECORDS SUMMARY | 2024-10-17 11:28 | XMS_ITS | Encounter Summary ---
Author Organization Healthcare Address [address] [place] [address] Care Team Providers Care Kiln Maintenance Name Role Phone Luis Lawson MD Primary Care Provider [phone] Encounter Details Date Type Department Care Team (Late st Contact Info) Description 07/16/2024 Results Follow-Up [facility] [address] [facility] [address] [place] [address] Jenny Alberto MD [address] [facility] [address] [place] [address] Social History Tobacco Use Types [...] Description 11/03/2024 8:40 AM EDT Office Visit [facility] Medicine Specialties [address], [address] [place] [address] Jenny Alberto MD [address] [facility] [address] [place] [address] 11/05/2024 9:00 AM EDT Office Visit [facility] Medicine Specialties [address], [address] [place] [address] Myles Dyer MD [address] [facility] [address] [place] [address] documented as of this encounter [...] documented as of this encounter Care Teams Kiln Maintenance Relationship Specialty Start Date End Date Luis Lawson MD [address] [place] [address] 1 [place] [address] PCP - General 02/25/24 documented as of this encounter
--- OUTSIDE RECORDS SUMMARY | 2024-10-17 11:28 | XMS_ITS | Encounter Summary ---
Author Organization [facility] Address [address] [place] [address] Care Team Providers Care Flight Steward Name Role Phone Field, Vita PAINTING Primary Care Provider [phone] Luis Lawson MD Primary Care Provider [phone] Encounter Details Date Type Department Care Team (Late st Contact Info) Description 01/23/2024 Lab Requisition [facility] [address] [place] [address] Jenny Alberto MD [address] [facility] [address] [place] [address] Elevation of levels of liver transaminase levels [...] Description 11/03/2024 8:40 AM EDT Office Visit [facility] Medicine Specialties [address], 2nd [place] [address] Jenny Alberto MD [address] [place] [address] 11/05/2024 9:00 AM EDT Office Visit [facility] Medicine Specialties [address], 2nd [place] [address] Myles Dyer MD [address] [place] [address] documented as of this encounter Procedures Procedure Name Priority Date/Time Associated Diagnosis Comments SURGICAL PATHOLOGY CONSULT Routine 01/23/2024 1:42 PM EST Elevation of levels of liver transaminase levels documented in this encounter Results * Surgical Pathology Consult (01/23/2024 1:42 PM EST) Case Report Sugical Pathology Consult Case: [id number] Authorizing Provider: Jenny Alberto MD Collected: 01/23/20249 Ordering Location: [facility] Lab Received: 01/23/2024 1342 Pathologist: Nasra Nava MD Specimen: Liver, [id number] 01/24/2024 4:41 PM EST [facility] Final Diagnosis LIVER, NEEDLE CORE BIOPSY ([id number]; 08/15/2023): - CLINICOPATHOLOGIC FINDINGS CONSISTENT WITH AUTOIMMUNE HEPATITIS WITH STAGE 4 FIBROSIS (SEE COMMENT). 01/24/2024 4:41 PM EST [facility] at 1641 EST Comment Sections show [...] correlation is recommended. 01/24/2024 4:41 PM EST [facility] Clinical Information R74.01 - Elevation of levels of liver transaminase levels [ICD-10-CM] 01/24/2024 4:41 PM EST [facility] Gross Description A. [id number] Received along with a corresponding pathology report from [facility] Laboratory are 3 slides labeled outside case: [id number] collected on 08/15/2023. 01/24/2024 4:41 PM EST [facility] Note: A resident was involved in the service. I attest I examined the relevant preparations for the specimens and confirmed the diagnosis or interpretation. 01/24/2024 4:41 PM EST [facility] Tissue Liver structure / Unknown 01/23/2024 1:42 PM EST 01/23/2024 1:42 PM EST us Jenny Alberto MD LAB PATHOLOGY ORDERABLES F inal Result [facility] [address] [place] [address] documented in this encounter Visit Diagnoses Diagnosis [...] documented as of this encounter Care Teams Flight Steward Relationship Specialty Start Date End Date Vita Reid APRN [address] YESSICA Fischer [address] PCP - General 07/23/20 02/24/24 Luis Lawson MD [address] [place] [address] [address] YESS[place] Fischer [address] PCP - General 02/25/24 documented as of this encounter
--- OUTSIDE RECORDS SUMMARY | 2024-10-17 11:28 | XMS_ITS | Encounter Summary ---
Author Organization Healthcare Address [address] [place] [address] Care Team Providers Care Director Of Special Events Name Role Phone Luis Lawson MD Primary Care Provider [phone] Encounter Details Date Type Department Care Team (Late st Contact Info) Description 07/28/2024 Results Follow-Up [facility] Medicine Specialties [address], [address] [place] [address] Jenny Alberto MD [address] [place] [address] Social History Tobacco Use Types [...] Description 11/03/2024 8:40 AM EDT Office Visit [facility] Medicine Specialties [address], [address] [place] [address] Jenny Alberto MD [address] [facility] [address] [place] [address] 11/05/2024 9:00 AM EDT Office Visit [facility] Medicine Specialties [address], [address]nd [place] [address] Myles Dyer MD [address] [facility] [address] [place] [address] documented as of this encounter [...] documented as of this encounter Care Teams Director Of Special Events Relationship Specialty Start Date End Date Luis Lawson MD [address] [place] [address] PCP - General 02/25/24 documented as of this encounter
--- OUTSIDE RECORDS SUMMARY | 2024-10-17 11:28 | XMS_ITS | Encounter Summary ---
Author Organization Healthcare Address [address] [place] [address] Care Team Providers Care Product Blending Supervisor Name Role Phone Luis Lawson MD Primary Care Provider [phone] Encounter Details Date Type Department Care Team (Late st Contact Info) Description 10/15/2024 Results Follow-Up [facility] Medicine Specialties [address], [address] [place] [address] Bjorn Cano MD [address] [place] [address] Social History Tobacco Use Types [...] Encounter Note - Bjorn Cano MD - 10/15/2024 4:13 PM EDT AST and ALT trended down from 100s to AST 62, ALT 98. IgG trended down from 1608 to 1455. He was started on prednisone 30 mg daily and myfortic 180 mg BID. Called patient to discuss. Unable to tolerate Myfortic due to high BP. SBP was in 200s and went to the ER recently. He has cutdown to prednisone 25 mg after being instructed to do so earlier today. Can keep on pred 25 mg for now. We see him back in office on 11/03/24. Will repeat labs in 1 week to ensure labs stable/downtrending. Can we please have him repeat labs in 1 week and fax labs to us Bjorn Cano MD Hepatology Fellow documented in this encounter Plan of Treatment Upcoming Encounters Date Type Department Care Team (Late st Contact Info) Description 11/03/2024 8:40 AM EDT Office Visit [facility] Medicine Specialties [address], [address] [place] [address] Jenny Alberto MD [address] [facility] [address] [place] [address] 11/05/2024 9:00 AM EDT Office Visit [facility] Medicine Specialties [address], [address] [place] [address] Myles Dyer MD [address] [facility] [address] [place] [address] documented as of this encounter Visit Diagnoses [...] documented as of this encounter Care Teams Product Blending Supervisor Relationship Specialty Start Date End Date Luis Lawson MD [address] [place] [address] PCP - General 02/25/24 documented as of this encounter
--- OUTSIDE RECORDS SUMMARY | 2024-10-17 11:28 | XMS_ITS | Encounter Summary ---
Author Organization Healthcare Address [address] [place] [place] [address] Care Team Providers Care Accountant Bookkeeper Name Role Phone Luis Lawson MD Primary Care Provider [phone] Encounter Details Date Type Department Care Team (Late Contact Info) Description 10/13/2024 Orders Only [facility] Medicine Specialties [address], [address] [place] [address] Lori Levi, RN [facility] Autoimmune hepatitis (CMS/HCC) Social History Tobacco Use [...] Description 11/03/2024 8:40 AM EDT Office Visit [facility] Medicine Specialties [address], [address] [place] [address] Jenny Alberto MD [facility] [address] [facility] [address] [place] [address] 11/05/2024 9:00 AM EDT Office Visit [facility] Medicine Specialties [address], [address] [place] [address] Myles Dyer MD [address] [place] [address] documented as of this encounter Procedures Procedure Name Priority Date/Time Associated Diagnosis Comments CBC WITH AUTO DIFFERENTIAL Routine 10/13/2024 7:56 AM EDT Autoimmune hepatitis (CMS/HCC) IGG, PLASMA Routine 10/13/2024 7:56 AM EDT Autoimmune hepatitis (CMS/HCC) COMPREHENSIVE METABOLIC PANEL, PLASMA Routine 10/13/2024 7:56 AM EDT Autoimmune hepatitis (CMS/HCC) documented in this encounter Results * IgG (10/13/2024 7:56 AM EDT) Blood Venous blood specimen / Unknown us Bjorn Cano MD LAB BLOOD ORDERABLES Final Resul t Performing Organization Address [facility] de Phone Number EXTERNAL LAB * CBC and differential (10/13/2024 7:56 AM EDT) Blood Venous blood specimen / Unknown us Bjorn Cano MD LAB BLOOD ORDERABLES Final Resul t Performing Organization Address City/[facility] Co de Phone Number EXTERNAL LAB * Comprehensive metabolic panel (10/13/2024 7:56 AM EDT) Blood Venous blood specimen / Unknown us Bjorn Cano MD LAB BLOOD ORDERABLES Final Resul t Performing Organization Address [facility] Co de Phone Number EXTERNAL LAB documented in this encounter Visit Diagnoses Diagnosis Autoimmune hepatitis (CMS/HCC) Autoimmune hepatitis documented in this encounter Additional Health Concerns Assessment Noted Time PHQ-9 Depression Total Score: 0 07/14/20 25 9:08 AM EDT A fall risk assessment has been complete d for the patient 09/22/2024 9:09 AM EDT A Body Mass Index follow-up plan has been documented for the patient 09/23/2024 1:05 AM EDT documented as of this encounter Care Teams Accountant Bookkeeper Relationship Specialty Start Date End Date Luis Lawson MD [address] [place] [address] PCP - General 02/25/24 documented as of this encounter
--- OUTSIDE RECORDS SUMMARY | 2024-10-17 11:28 | XMS_ITS | Encounter Summary ---
Author Organization Healthcare Address [address] [place] [address] Care Team Providers Care Mounted Police Officer Name Role Phone Luis Lawson MD Primary Care Provider [phone] Encounter Details Date Type Department Care Team (Late Contact Info) Description 08/29/2024 Orders Only [facility] [address], [address] [place] [address] Caroline Tsang RN Autoimmune hepatitis [...] Description 11/03/2024 8:40 AM EDT Office Visit [facility] [address], [address] [place] [address] Jenny Alberto MD [facility] [address] [place] [address] 11/05/2024 9:00 AM EDT Office Visit [facility] [address], 2nd [place] [address] Myles Dyer MD [address] [place] [address] documented as of this encounter [...] documented as of this encounter Care Teams Mounted Police Officer Relationship Specialty Start Date End Date Luis Lawson MD [address] [place] [address] [address] [place] [address] PCP - General 02/25/24 documented as of this encounter
== END 2024-10-16 23:59 | disposition home or self-care (01) ==
LOC: LAB.DROPOF 10-17 11:24
PROVIDERS: PCP Internal Medicine; Visit Provider Internal Medicine
DX: E03.9 Hypothyroidism, unspecified (principal); Z13.29 Encounter for screening for other suspected endocrine disorder; R97.20 Elevated prostate specific antigen [PSA]
CPT/HCPCS: 84439; 84443; G0103

== ENCOUNTER 2024-10-22 07:22 | Outpatient (CLI) | payer MEDICARE, SELFPAY ==
--- OUTSIDE RECORDS SUMMARY | 2007-02-05 06:39 | XMS_ITS | Continuity of Care Document ---
Author Name DOD-MI Organization [facility] Care Team Providers Care Gas Distribution Plant Operator Name Role Phone [facility] Unavailable Unavailable Immunizations Combined list of available immunizations from the Department of Defense and Veterans Affairs facilities. Immunization Series Date Given Administered By Site Reaction Lot Number CVX Code Drug Wing Coverer Status Comments Source FLU,3 YRS (HISTORICAL) 2006 88 [facility] [place] [facility]
--- OUTSIDE RECORDS SUMMARY | 2024-07-14 09:00 | XMS_ITS | Encounter Summary ---
Author Organization [facility] Address [address] [id number] Care Team Providers Care [employer] Name Role Phone Luis Lawson MD Primary Care Provider [phone] Reason for Referral * Genetic Testing (Routine) - Authorized Specialty Diagnoses / Procedures Referred By Contac t Referred To Contact Lab Diagnoses Autoimmune hepatitis (CMS/HCC) Procedures IgG, Plasma Jenny Alberto MD [address] [address] Phone: tel: fax: Referral ID Status Reason Start Date Expiration Date V isits Requested Visits Authorized [id number] Authorized 07/14/2024 01/13/2026 1 1 * Consultation (Routine) - Authorized Specialty Diagnoses / Procedures Referred By Contac t Referred To Contact Diagnoses Autoimmune hepatitis (CMS/HCC) Nausea Jenny Alberto MD [address] [address] Phone: tel: fax: Referral ID Status Reason Start Date Expiration Date V isits Requested Visits Authorized [id number] Authorized 07/14/2024 01/13/2026 1 1 * Genetic Testing (Routine) - Closed Specialty Diagnoses / Procedures Referred By Contac t Referred To Contact Lab Diagnoses Autoimmune hepatitis (CMS/HCC) Procedures IgG, Plasma Jenny Alberto MD [address] [facility] [address] [place] [address] Phone: tel: fax: Referral ID Status Reason Start Date Expiration Date Visits Re quested Visits Authorized [id number] Closed 07/14/2024 01/13/2026 1 1 Reason for Visit * Reason Comments Nausea and vomiting, unspecified vomitin g type Autoimmune hepatitis (CMS/HCC) Encounter Details Date Type Department Care Team (Late st Contact Info) Description 07/14/2024 9:00 AM EDT Office Visit [facility] [address] [place] [address] Jenny Alberto MD [address] [facility] [address] [place] [address] Autoimmune hepatitis (CMS/HCC) (Primary Dx); Nausea; Other specified hypothyroidism; Encounter for residential current use of azathioprine; On prednisone therapy [...] 8:30 AM EDT documented in this encounter Miscellaneous Notes * Addendum Note - Caroline Avilez RN - 07/14/2024 9:00 AM EDTAddended by: CAROLINE AVILEZ on: 08/29/2024 03:23 PM Modules accepted: Orders * Progress Notes [...] diverticulitis, in May- went to ER In [facility] 06/05/24 No abd pain,hematochezia Reports improvement of nausea, but still has nausea, thus he stopped azathioprine on his own. He has been off azathioprine for 2 weeks EGD- I reviewed report of EGD done by Dr. 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 Cabezas [...] Care Team (Late st Contact Info) Description 11/03/2024 8:40 AM EDT Office Visit [facility] Medicine Specialties [address] [place] [address] Jenny Alberto MD [address] [facility] [address] [place] [address] 11/05/2024 9:00 AM EDT Office Visit [facility] Medicine Specialties [address] [place] [address] Myles Dyer MD [address] [facility] [address] [place] [address] Scheduled Orders Name Type Priority Associated Diagnoses Orde r Schedule CBC and Differential Lab Routine Autoimmune hepatitis (CMS/HCC) as needed for 24 Occurrences starting 07/14/2024 until 01/14/2026 IgG, Plasma Lab Routine Autoimmune hepatitis (CMS/HCC) as needed for 24 Occurrences starting 07/14/2024 until 01/14/2026 Comprehensive Metabolic Panel, Plasma Lab Routine Autoimmune hepatitis (CMS/HCC) as needed for 24 Occurrences starting 08/29/2024 until 01/14/2026, 1 completed Scheduled Referrals Name Type Priority Associated Diagnoses Orde r Schedule Follow Up GI Outpatient Referral Routine Autoimmune hepatitis (CMS/HCC) Nausea Expected: 09/13/2024, Expires: 08/14/2025 documented as of this encounter Results * Comprehensive Metabolic Panel, Plasma (08/29/2024 3:23 PM EDT) Blood Venous blood specimen / Unknown Jenny Alberto MD LAB BLOOD ORDERABLES Final Result EXTERNAL LAB * TSH Reflex FT4 (07/14/2024 10:01 AM EDT) Thyroid Stimulating Hormone, Plasma 2.24 0.40 - 4.20 uIU/mL 07/14/2024 11:20 AM EDT [facility] Blood Venous blood specimen / Unknown Venipuncture / Unknown 07/14/2024 10:01 AM EDT 07/14/2024 10:01 AM EDT Jenny Alberto MD LAB BLOOD ORDERABLES Final Result [facility] [address] [place] [address] * IgG, Plasma (07/14/2024 10:01 AM EDT) IGG 1,222 720 - 1,589 mg/dL 07/14/2024 11:20 AM EDT [facility] Blood Venous blood specimen / Unknown Venipuncture / Unknown 07/14/2024 10:01 AM EDT 07/14/2024 10:01 AM EDT Jenny Alberto MD LAB BLOOD ORDERABLES Final Result [facility] [address] [place] [address] * (ABNORMAL) Comprehensive metabolic panel (07/14/2024 10:01 AM EDT) Glucose, Plasma 102(H) 74 - 99 mg/dL 07/14/2024 11:20 AM EDT [facility] BUN, Plasma 16 8 - 23 mg/dL 07/14/2024 11:20 AM EDT [facility] Creatinine, Plasma 0.81 0.70 - 1.20 mg/dL 07/14/2024 11:20 AM EDT [facility] BUN/Creatinine Ratio 07/14/2024 11:20 AM EDT [facility] Sodium, Plasma 142 136 - 145 mmol/L 07/14/2024 11:20 AM EDT [facility] Potassium, Plasma 4.0 3.6 - 4.9 mmol/L 07/14/2024 11:20 AM EDT [facility] Chloride, Plasma 106 97 - 107 mmol/L 07/14/2024 11:20 AM EDT [facility] CO2, Plasma 25 22 - 29 mmol/L 07/14/2024 11:20 AM EDT [facility] Anion Gap 11 6 - 16 mmol/L 07/14/2024 11:20 AM EDT [facility] Total Calcium, Plasma 9.6 8.9 - 10.2 mg/dL 07/14/2024 11:20 AM EDT [facility] Total Protein 7.1 6.3 - 7.9 g/dL 07/14/2024 11:20 AM EDT [facility] Albumin, Plasma 4.1 3.5 - 5.2 g/dL 07/14/2024 11:20 AM EDT [facility] AST, Plasma 30 10 - 50 U/L 07/14/2024 11:20 AM EDT [facility] ALT, Plasma 36 10 - 50 U/L 07/14/2024 11:20 AM EDT [facility] Alkaline Phosphatase, Plasma 79 40 - 115 U/L 07/14/2024 11:20 AM EDT [facility] Total Bilirubin, Plasma 0.6 0.2 - 1.1 mg/dL 07/14/2024 11:20 AM EDT [facility] eGFRcr 91.9 mL/min/1.7 3m*2 07/14/2024 11:20 AM EDT [facility] Comment:Reported eGFRcr in m L/min/1.73m2 is based the CKD-EPI 2020 equation that does not use a race coefficient. 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
--- OUTSIDE RECORDS SUMMARY | 2024-09-22 09:00 | XMS_ITS | Encounter Summary ---
Author Organization [facility] Address [address] [place] [address] Care Team Providers Care Senior Product Marketing Manager Name Role Phone Luis Lawson MD Primary Care Provider [phone] Reason for Referral * Consultation (Routine) - Authorized Specialty Diagnoses / Procedures Referred By Contac t Referred To Contact Diagnoses Autoimmune hepatitis (CMS/HCC) Other cirrhosis of liver (CMS/HCC) Bjorn Cano MD [address] [address] Phone: tel: fax: Referral ID Status Reason Start Date Expiration Date V isits Requested Visits Authorized [id number] Authorized 09/22/2024 03/24/2026 1 1 * Imaging (Routine) - Pending Review Specialty Diagnoses / Procedures Referred By Contac t Referred To Contact Radiology Diagnoses Other cirrhosis of liver (CMS/HCC) Procedures US Liver Screen Bjorn Cano MD [address] [address] Phone: tel: fax: Referral ID Status Reason Start Date Expiration Date V isits Requested Visits Authorized [id number] Pending Review 09/22/2024 03/24/2026 1 1 * Genetic Testing (Routine) - Closed Specialty Diagnoses / Procedures Referred By Contac t Referred To Contact Lab Diagnoses Autoimmune hepatitis (CMS/HCC) Procedures IgG Bjorn Cano MD [address] [facility] [address] [place] [address] Phone: tel: fax: Referral ID Status Reason Start Date Expiration Date Visits Re quested Visits Authorized [id number] Closed 09/22/2024 03/24/2026 1 1 Reason for Visit * Reason Comments Autoimmune Hepatitis Nausea Vomiting Encounter Details Date Type Department Care Team (Late st Contact Info) Description 09/22/2024 9:00 AM EDT Office Visit [facility] [address] [place] [address] Jenny Alberto MD [address] [facility] [address] [place] [address] Autoimmune hepatitis (CMS/HCC) (Primary Dx); [...] -9 Score 0 09/22/2024 9:08 AM JAREDT Harhsa Reina * If you checked off any [...] EGD: Completed 06/02/[address] Vargas at [place]. No EV. PHG with reactive gastropathy. The [...] Last EGD 06/02/[address] Vargas at [place]. No EV. PHG with reactive gastropathy. - [...] liver enzymes and IgG (ALT from 50s/60s [id number])- increase prednisone to 30mg/day, start myfortic 180mg [...] Description 11/03/2024 8:40 AM EDT Office Visit [facility] Medicine Specialties [address] [place] [address] Jenny Alberto MD [address] [facility] [address] [place] [phone] 11/05/2024 9:00 AM EDT Office Visit [facility] Medicine Specialties [address] [place] [address] Myles Dyer MD [address] [facility] [address] [place] [address] Scheduled Orders Name Type Priority Associated Diagnoses [...] - 1,589 mg/dL 09/22/2024 12:25 PM EDT [facility] Blood Venous blood specimen / Unknown Venipuncture / Unknown 09/22/2024 10:25 AM EDT 09/22/2024 10:25 AM EDT us Bjorn Cano MD LAB BLOOD ORDERABLES Final Resul t Performing Organization Address [facility] de Phone Number [facility] [address] [place] [address] * (ABNORMAL) Protime-INR (09/22/2024 10:25 AM EDT) Prothrombin Time 14.7(H) 12.0 - 14.3 sec LAB COAGULATION METHOD 09/22/2024 12:02 PM EDT [facility] INR 1.1 0.9 - 1.1 LAB COAGULATION METHOD 09/22/2024 12:02 PM EDT [facility] Blood Venous blood specimen / Unknown Venipuncture / Unknown 09/22/2024 10:25 AM EDT 09/22/2024 10:25 AM EDT Narrative [facility] - 09/22/2024 12:02 PM EDT OPTIMAL INR RANGES FOR PATIENT ON ORAL ANTICOAGULANT THERAPY Prevention of venous thromboembolism INR 2.0 to 3.0 In patients with heart disease: Atrial fibrillation INR 2.0 to 3.0 Valvular heart disease INR 2.0 to 3.0 Tissue heart valves INR 2.0 to 3.0 Mechanical prosthetic valves INR 2.5 to 3.5 Prevention of recurrent [place] INR 2.5 to 3.5 us Bjorn Cano MD LAB BLOOD ORDERABLES Final Resul t Performing Organization Address City/[facility]/ZIP Co de Phone Number [facility] [address] [place] [phone] * (ABNORMAL) CBC and differential (09/22/2024 10:25 AM EDT) [facility] Signature WBC Count 5.85 3.70 - 10.30 10*3/uL LAB HEMATOLOGY METHOD 09/22/2024 12:24 PM EDT [facility] RBC Count 4.69 4.60 - 6.10 10*6/uL LAB HEMATOLOGY METHOD 09/22/2024 12:24 PM EDT [facility] HGB 14.8 13.7 - 17.5 g/dL LAB HEMATOLOGY METHOD 09/22/2024 12:24 PM EDT [facility] HCT 44.6 40.0 - 51.0 % LAB HEMATOLOGY METHOD 09/22/2024 12:24 PM EDT [facility] Platelet Count 128(L) 155 - 369 10*3/uL LAB HEMATOLOGY METHOD 09/22/2024 12:24 PM EDT [facility] MCV 95 79 - 98 fL LAB HEMATOLOGY METHOD 09/22/2024 12:24 PM EDT [facility] MCH 31.6 26.0 - 32.0 pg LAB HEMATOLOGY METHOD 09/22/2024 12:24 PM EDT [facility] MCHC 33.2 30.7 - 35.5 g/dL LAB HEMATOLOGY METHOD 09/22/2024 12:24 PM EDT [facility] RDW 14.2 11.5 - 14.5 % LAB HEMATOLOGY METHOD 09/22/2024 12:24 PM EDT [facility] MPV 10.6 8.8 - 12.5 fL LAB HEMATOLOGY METHOD 09/22/2024 12:24 PM EDT [facility] nRBC 0.0 <=0.0 per 100 WBCs LAB HEMATOLOGY METHOD 09/22/2024 12:24 PM EDT [facility] Differential Type Automated LAB HEMATOLOGY METHOD 09/22/2024 12:24 PM EDT [facility] Neutrophils % 61 % LAB HEMATOLOGY METHOD 09/22/2024 12:24 PM EDT [facility] Lymphocytes % 27 % LAB HEMATOLOGY METHOD 09/22/2024 12:24 PM EDT [facility] Monocytes % 9 % LAB HEMATOLOGY METHOD 09/22/2024 12:24 PM EDT [facility] Eosinophils % 2 % LAB HEMATOLOGY METHOD 09/22/2024 12:24 PM EDT [facility] Basophils % 1 % LAB HEMATOLOGY METHOD 09/22/2024 12:24 PM EDT [facility] Immature Granulocytes % 0 % LAB HEMATOLOGY METHOD 09/22/2024 12:24 PM EDT [facility] Neutrophils Absolute 3.54 1.60 - 6.10 10*3/uL LAB HEMATOLOGY METHOD 09/22/2024 12:24 PM EDT [facility] Lymphocytes Absolute 1.60 1.20 - 3.90 10*3/uL LAB HEMATOLOGY METHOD 09/22/2024 12:24 PM EDT [facility] Monocytes Absolute 0.55 0.30 - 0.90 10*3/uL LAB HEMATOLOGY METHOD 09/22/2024 12:24 PM EDT [facility] Eosinophils Absolute 0.11 0.00 - 0.50 10*3/uL LAB HEMATOLOGY METHOD 09/22/2024 12:24 PM EDT [facility] Basophils Absolute 0.04 0.00 - 0.10 10*3/uL LAB HEMATOLOGY METHOD 09/22/2024 12:24 PM EDT [facility] Immature Granulocytes Absolute 0.01 0.00 - 0.06 10*3/uL LAB HEMATOLOGY METHOD 09/22/2024 12:24 PM EDT [facility] Blood Venous blood specimen / Unknown Venipuncture / Unknown 09/22/2024 10:25 AM EDT 09/22/2024 10:25 AM EDT Narrative [facility] - 09/22/2024 12:24 PM EDT Therapeutic decision making should be based on absolute values, rather than percentages. us Bjorn Cano MD LAB BLOOD ORDERABLES Final Resul t [facility] [address] [place] [address] * (ABNORMAL) Comprehensive metabolic panel (09/22/2024 10:25 AM EDT) Glucose, Plasma 93 74 - 99 mg/dL 09/22/2024 11:58 AM EDT [facility] BUN, Plasma 23 8 - 23 mg/dL 09/22/2024 11:58 AM EDT [facility] Creatinine, Plasma 0.93 0.70 - 1.20 mg/dL 09/22/2024 11:58 AM EDT [facility] BUN/Creatinine Ratio 25 09/22/2024 11:58 AM EDT [facility] Sodium, Plasma 140 136 - 145 mmol/L 09/22/2024 11:58 AM EDT [facility] Potassium, Plasma 4.4 3.6 - 4.9 mmol/L 09/22/2024 11:58 AM EDT [facility] Chloride, Plasma 103 97 - 107 mmol/L 09/22/2024 11:58 AM EDT [facility] CO2, Plasma 28 22 - 29 mmol/L 09/22/2024 11:58 AM EDT [facility] Anion Gap 9 6 - 16 mmol/L 09/22/2024 11:58 AM EDT [facility] Total Calcium, Plasma 9.9 8.9 - 10.2 mg/dL 09/22/2024 11:58 AM EDT [facility] Total Protein 7.2 6.3 - 7.9 g/dL 09/22/2024 11:58 AM EDT [facility] Albumin, Plasma 4.2 3.5 - 5.2 g/dL 09/22/2024 11:58 AM EDT [facility] AST, Plasma 95(H) 10 - 50 U/L 09/22/2024 11:58 AM EDT [facility] ALT, Plasma 115(H) 10 - 50 U/L 09/22/2024 11:58 AM EDT [facility] Alkaline Phosphatase, Plasma 117(H) 40 - 115 U/L 09/22/2024 11:58 AM EDT [facility] Total Bilirubin, Plasma 0.9 0.2 - 1.1 mg/dL 09/22/2024 11:58 AM EDT [facility] eGFRcr 85.6 mL/min/1.7 3m*2 09/22/2024 11:58 AM EDT [facility] Comment:Reported eGFRcr in m L/min/1.73m2 is based the CKD-EPI 2020 equation that does not use a race coefficient. Blood Venous blood specimen / Unknown Venipuncture / Unknown 09/22/2024 10:25 AM EDT 09/22/2024 10:25 AM EDT us Bjorn Cano MD LAB BLOOD ORDERABLES Final Resul t [facility] [address] [place] [address] documented in this encounter Visit Diagnoses Diagnosis [...] documented as of this encounter Care Teams Senior Product Marketing Manager Relationship Specialty Start Date End Date Luis Lawson MD [address] [place] [address] PCP - General 02/25/24 documented as of this encounter
--- OUTSIDE RECORDS SUMMARY | 2024-09-22 10:40 | XMS_ITS | Encounter Summary ---
Author Organization Healthcare Address [address] [place] [place] [address] Care Team Providers Care Hvac Installation Technician Name Role Phone Luis Lawson MD Primary Care Provider [phone] Reason for Visit * Genetic Testing (Routine) - Closed Specialty Diagnoses / Procedures Referred By Contac t Referred To Contact Lab Diagnoses Autoimmune hepatitis (CMS/HCC) Procedures IgG Bjorn Cano MD [address] [place] [address] Phone: tel: fax: Referral ID Status Reason Start Date Expiration Date Visits Re quested Visits Authorized [id number] Closed 09/22/2024 03/24/2026 1 1 Encounter Details Date Type Department Care Team (Latest Contact Info) Description 09/22/2024 10:40 AM EDT Clinical Support [place] [facility] [address] [place] [address] Autoimmune hepatitis (CMS/HCC) Social History [...] [facility] Medicine Specialties [address] [place] [address] Jenny Alberto MD [address] [place] [address] 11/05/2024 9:00 AM EDT Office Visit [facility] Medicine Specialties [address] [place] [address] Myles Dyer MD [address] [facility] [address] [place] [address] documented as of this encounter [...] - 1,589 mg/dL 09/22/2024 12:25 PM EDT [facility] Blood Venous blood specimen / Unknown Venipuncture / Unknown 09/22/2024 10:25 AM EDT 09/22/2024 10:25 AM EDT Bjorn Cano MD LAB BLOOD ORDERABLES Final Resul t [facility] [address] [place] [address] * (ABNORMAL) CBC and differential (09/22/2024 10:25 AM EDT) WBC Count 5.85 3.70 - 10.30 10*3/uL LAB HEMATOLOGY METHOD 09/22/2024 12:24 PM EDT [facility] RBC Count 4.69 4.60 - 6.10 10*6/uL LAB HEMATOLOGY METHOD 09/22/2024 12:24 PM EDT [facility] HGB 14.8 13.7 - 17.5 g/dL LAB HEMATOLOGY METHOD 09/22/2024 12:24 PM EDT [facility] HCT 44.6 40.0 - 51.0 % LAB HEMATOLOGY METHOD 09/22/2024 12:24 PM EDT [facility] Platelet Count 128(L) 155 - 369 10*3/uL LAB HEMATOLOGY METHOD 09/22/2024 12:24 PM EDT [facility] MCV 95 79 - 98 fL LAB HEMATOLOGY METHOD 09/22/2024 12:24 PM EDT [facility] MCH 31.6 26.0 - 32.0 pg LAB HEMATOLOGY METHOD 09/22/2024 12:24 PM EDT [facility] MCHC 33.2 30.7 - 35.5 g/dL LAB HEMATOLOGY METHOD 09/22/2024 12:24 PM EDT [facility] RDW 14.2 11.5 - 14.5 % LAB HEMATOLOGY METHOD 09/22/2024 12:24 PM EDT [facility] MPV 10.6 8.8 - 12.5 fL LAB HEMATOLOGY METHOD 09/22/2024 12:24 PM EDT [facility] nRBC 0.0 <=0.0 per 100 WBCs LAB HEMATOLOGY METHOD 09/22/2024 12:24 PM EDT [facility] Differential Type Automated LAB HEMATOLOGY METHOD 09/22/2024 12:24 PM EDT [facility] Neutrophils % 61 % LAB HEMATOLOGY METHOD 09/22/2024 12:24 PM EDT [facility] Lymphocytes % 27 % LAB HEMATOLOGY METHOD 09/22/2024 12:24 PM EDT [facility] Monocytes % 9 % LAB HEMATOLOGY METHOD 09/22/2024 12:24 PM EDT [facility] Eosinophils % 2 % LAB HEMATOLOGY METHOD 09/22/2024 12:24 PM EDT [facility] Basophils % 1 % LAB HEMATOLOGY METHOD 09/22/2024 12:24 PM EDT [facility] Immature Granulocytes % 0 % LAB HEMATOLOGY METHOD 09/22/2024 12:24 PM EDT [facility] Neutrophils Absolute 3.54 1.60 - 6.10 10*3/uL LAB HEMATOLOGY METHOD 09/22/2024 12:24 PM EDT [facility] Lymphocytes Absolute 1.60 1.20 - 3.90 10*3/uL LAB HEMATOLOGY METHOD 09/22/2024 12:24 PM EDT [facility] Monocytes Absolute 0.55 0.30 - 0.90 10*3/uL LAB HEMATOLOGY METHOD 09/22/2024 12:24 PM EDT [facility] Eosinophils Absolute 0.11 0.00 - 0.50 10*3/uL LAB HEMATOLOGY METHOD 09/22/2024 12:24 PM EDT [facility] Basophils Absolute 0.04 0.00 - 0.10 10*3/uL LAB HEMATOLOGY METHOD 09/22/2024 12:24 PM EDT [facility] Immature Granulocytes Absolute 0.01 0.00 - 0.06 10*3/uL LAB HEMATOLOGY METHOD 09/22/2024 12:24 PM EDT [facility] Blood Venous blood specimen / Unknown Venipuncture / Unknown 09/22/2024 10:25 AM EDT 09/22/2024 10:25 AM EDT Narrative [facility] - 09/22/2024 12:24 PM EDT Therapeutic decision making should be based on absolute values, rather than percentages. us Bjorn Cano MD LAB BLOOD ORDERABLES Final Resul t [facility] [address] [place] [address] * (ABNORMAL) Protime-INR (09/22/2024 10:25 AM EDT) Prothrombin Time 14.7(H) 12.0 - 14.3 sec LAB COAGULATION METHOD 09/22/2024 12:02 PM EDT [facility] INR 1.1 0.9 - 1.1 LAB COAGULATION METHOD 09/22/2024 12:02 PM EDT [facility] Blood Venous blood specimen / Unknown Venipuncture / Unknown 09/22/2024 10:25 AM EDT 09/22/2024 10:25 AM EDT Narrative [facility] - 09/22/2024 12:02 PM EDT OPTIMAL INR RANGES FOR PATIENT ON ORAL ANTICOAGULANT THERAPY Prevention of venous thromboembolism INR 2.0 to 3.0 In patients with heart disease: Atrial fibrillation INR 2.0 to 3.0 Valvular heart disease INR 2.0 to 3.0 Tissue heart valves INR 2.0 to 3.0 Mechanical prosthetic valves INR 2.5 to 3.5 Prevention of recurrent [place] INR 2.5 to 3.5 us Bjorn Cano MD LAB BLOOD ORDERABLES Final Resul t [facility] [address] [place] [address] * (ABNORMAL) Comprehensive metabolic panel (09/22/2024 10:25 AM EDT) Glucose, Plasma 93 74 - 99 mg/dL 09/22/2024 11:58 AM EDT [facility] BUN, Plasma 23 8 - 23 mg/dL 09/22/2024 11:58 AM EDT [facility] Creatinine, Plasma 0.93 0.70 - 1.20 mg/dL 09/22/2024 11:58 AM EDT [facility] BUN/Creatinine Ratio 25 09/22/2024 11:58 AM EDT [facility] Sodium, Plasma 140 136 - 145 mmol/L 09/22/2024 11:58 AM EDT [facility] Potassium, Plasma 4.4 3.6 - 4.9 mmol/L 09/22/2024 11:58 AM EDT [facility] Chloride, Plasma 103 97 - 107 mmol/L 09/22/2024 11:58 AM EDT [facility] CO2, Plasma 28 22 - 29 mmol/L 09/22/2024 11:58 AM EDT [facility] Anion Gap 9 6 - 16 mmol/L 09/22/2024 11:58 AM EDT [facility] Total Calcium, Plasma 9.9 8.9 - 10.2 mg/dL 09/22/2024 11:58 AM EDT [facility] Total Protein 7.2 6.3 - 7.9 g/dL 09/22/2024 11:58 AM EDT [facility] Albumin, Plasma 4.2 3.5 - 5.2 g/dL 09/22/2024 11:58 AM EDT [facility] AST, Plasma 95(H) 10 - 50 U/L 09/22/2024 11:58 AM EDT [facility] ALT, Plasma 115(H) 10 - 50 U/L 09/22/2024 11:58 AM EDT [facility] Alkaline Phosphatase, Plasma 117(H) 40 - 115 U/L 09/22/2024 11:58 AM EDT [facility] Total Bilirubin, Plasma 0.9 0.2 - 1.1 mg/dL 09/22/2024 11:58 AM EDT [facility] eGFRcr 85.6 mL/min/1.7 3m*2 09/22/2024 11:58 AM EDT [facility] Comment:Reported eGFRcr in m L/min/1.73m2 is based the CKD-EPI 2020 equation that does not use a race coefficient. Blood Venous blood specimen / Unknown Venipuncture / Unknown 09/22/2024 10:25 AM EDT 09/22/2024 10:25 AM EDT us Bjorn Cano MD LAB BLOOD ORDERABLES Final Resul t [facility] [address] [place] [address] documented in this encounter Visit Diagnoses Diagnosis [...] documented as of this encounter Care Teams Hvac Installation Technician Relationship Specialty Start Date End Date Luis Lawson MD [address] [place] [id number] PCP - General 02/25/24 documented as of this encounter
--- OUTSIDE RECORDS SUMMARY | 2024-10-22 07:26 | XMS_ITS | Encounter Summary ---
Author Organization Healthcare Address [address] [place] [address] Care Team Providers Care Humanities Department Chair Name Role Phone Luis Lawson MD Primary Care Provider Encounter Details Date Type Department Care Team (Late st Contact Info) Description 07/16/2024 Results Follow-Up [facility] [address] [facility] [address] [place] [address] Jenny Alberto MD [address] [facility] [address] [place] [address] Social History Tobacco Use Types [...] 11/03/2024 8:40 AM EDT Office Visit [facility] [address], 2nd [place] [address] Jenny Alberto MD [address] [facility] [address] [place] [address] 11/05/2024 9:00 AM EDT Office [facility] [address], 2nd [place] [address] Myles Dyer MD [address] [facility] [address] [place] [address] documented as of this encounter [...] documented as of this encounter Care Teams Humanities Department Chair Relationship Specialty Start Date End Date Luis Lawson MD [address] [place] [address] 1 [place] [address] PCP - General 02/25/24 documented as of this encounter
--- OUTSIDE RECORDS SUMMARY | 2024-10-22 07:26 | XMS_ITS | Encounter Summary ---
Author Organization Healthcare Address [address] [place] [address] Care Team Providers Care Hull And Deck Remover Name Role Phone Luis Lawson MD Primary Care Provider Reason for Referral * Genetic Testing (Routine) - Authorized Specialty Diagnoses / Procedures Referred By Contac t Referred To Contact Diagnoses Autoimmune hepatitis (CMS/HCC) Procedures IgG IgG Bjorn Cano MD [address] [place] [address] Phone: tel: fax: Referral ID Status Reason Start Date Expiration Date V isits Requested Visits Authorized [id number] Authorized 09/22/2024 03/24/2026 1 1 Encounter Details Date Type Department Care Team (Late st Contact Info) Description 09/22/2024 Results Follow-Up [place] [facility] [address], [address]nd [place] [address] Bjorn Cano MD [id number] [place] [address] Social History Tobacco Use Types [...] Description 11/03/2024 8:40 AM EDT Office Visit [facility]ties [address], [address] [place] [address] Jenny Alberto MD [address] [place] [address] 11/05/2024 9:00 AM EDT Office Visit [facility] [address], 2nd [place] [address] Myles Dyer MD [address] [place] [address] Scheduled Orders Name Type Priority Associated Diagnoses [...] ORDERABLES Final Resul t Performing Organization Address [facility] Co de Phone Number EXTERNAL LAB documented [...] documented as of this encounter Care Teams Hull And Deck Remover Relationship Specialty Start Date End Date Luis Lawson MD [address] [place] [address] [place] [address] PCP - General 02/25/24 documented as of this encounter
--- OUTSIDE RECORDS SUMMARY | 2024-10-22 07:26 | XMS_ITS | Clinical Summary ---
Author Organization [facility] Address [address] [place] [address] Care Team Providers Care Pad Assembler Name Role Phone Luis Lawson MD Primary Care Provider [phone] Allergies No known active allergies Medications amLODIPine [...] carvedilol (Coreg) 12.5 MG tablet 5 Active ondansetron (Zofran) 4 MG tabletIndication s:Nausea and vomiting, unspecified vomiting type,Autoimmune hepatitis (CMS/HCC) Take 1 tablet (4 mg) by mouth every 8 hours as needed for nausea or vomiting. 20 tablet 3 5 Active Additional Information Patient not taking.Reported on 09/22/2024 nutritional drink (Boost Plus) liquid liquid Drink 1 supplement up to 3 times a day or As Directed as a nutritional supplement. Flavor preference: per patient. 1 case today. Can dispense up to 4 cases at a time per patient request in the future 237 mL 11 Active Additional Information Patient not taking.Reported on 09/22/2024 levothyroxine (Synthroid, Levoxyl) 50 MCG tablet Active predniSONE (Deltasone) 10 MG tablet Take 3 tablets by mouth daily. Take with breakfast 120 tablet Active mycophenolate (Myfortic) 180 MG EC tablet Take 1 tablet by mouth 2 times a day. 60 tablet 1 Active Active Problems Problem Noted Date Diagnosed [...] Department Care Team Description 10/15/2024 Results Follow-Up [facility]ties [address], [address] [place] [address] Bjorn Cano MD 10/13/2024 Orders Only [facility] [address], [address] [place] [address] Lori Levi RN Autoimmune hepatitis (CMS/HCC) 09/22/2024 10:40 AM EDT Clinical Support [facility] [address], [address] [place] [phone] Autoimmune hepatitis (CMS/HCC) 09/22/2024 9:00 AM EDT Office Visit [facility] [address], [address] [place] [address] Jenny Alberto MD Autoimmune hepatitis (CMS/HCC) (Primary Dx); Other cirrhosis of liver (CMS/HCC); Nausea; Elevated liver enzymes; High total IgG; History of diverticulitis 09/22/2024 Results Follow-Up [facility] [address], 2nd [place] [address] Bjorn Cano MD 09/22/2024 Travel 09/01/2024 Telephone [facility] [address], [address] [place] [address] Carolien Tsang RN 08/29/2024 Orders Only [facility] [address], [address] [place] [address] Caroline Tsang RN Autoimmune hepatitis (CMS/HCC) 07/30/2024 Telephone [facility] [address], [address] [place] [address] Lori Levi RN 07/30/2024 Orders Only [facility] [address], [address] [place] [address] Jenny Alberto MD 07/28/2024 Results Follow-Up [facility] Special[facility] [address], [address] [place] [address] Jenny Alberto MD 07/28/2024 Orders Only [facility] [address], [facility] [place] [address] Jenny Alberto MD 07/25/2024 Orders Only [facility] [address], [address] [place] [address] Jenny Alberto MD from Last 3 Months [...] Visit [facility] [address], 2nd [place] [address] Jenny Alberto MD [address] [facility] [address] [place] [address] 11/05/2024 9:00 AM EDT Office Visit [facility] [address], [address] [place] [address] Myles Dyer MD [address] [facility] [address] [place] [address] Health Maintenance Due Date Last Done Comments [...] or (1 - 1-dose 75+ series) 10/11/2023 [id number] Vaccine (7 - Moderna risk 2023- season) [...] ORDERABLES Final Resul t EXTERNAL LAB * Comprehensive metabolic panel (10/13/2024 7:56 AM EDT) Only the most recent of3 resultswithin the time period is included. Blood Venous blood specimen / Unknown us Bjorn Cano MD LAB BLOOD ORDERABLES Final Resul t Performing Organization Address [facility] de Phone Number EXTERNAL LAB * (ABNORMAL) Protime-INR (09/22/2024 10:25 AM EDT) Prothrombin Time 14.7(H) 12.0 - 14.3 sec LAB COAGULATION METHOD 09/22/2024 12:02 PM EDT [facility] INR 1.1 0.9 - 1.1 LAB COAGULATION METHOD 09/22/2024 12:02 PM EDT [facility] Blood Venous blood specimen / Unknown Venipuncture / Unknown 09/22/2024 10:25 AM EDT 09/22/2024 10:25 AM EDT Narrative [facility] - 09/22/2024 12:02 PM EDT OPTIMAL INR RANGES FOR PATIENT ON ORAL ANTICOAGULANT THERAPY Prevention of venous thromboembolism INR 2.0 to 3.0 In patients with heart disease: Atrial fibrillation INR 2.0 to 3.0 Valvular heart disease INR 2.0 to 3.0 Tissue heart valves INR 2.0 to 3.0 Mechanical prosthetic valves INR 2.5 to 3.5 Prevention of recurrent [place] INR 2.5 to 3.5 us Bjorn Cano MD LAB BLOOD ORDERABLES Final Resul t Performing Organization Address [facility] Co de Phone Number [facility] [address] [place] [address] * COMPLETE METABOLIC PROFILE (CMP) (07/25/2024 4:15 PM EDT) Result Fabian Alberto MD LAB BLOOD ORDERABLES Final Result * CBC W/DIFF (07/25/2024 7:28 AM EDT) us Jenny Alberto MD LAB BLOOD ORDERABLES Final Result * Hepatitis C antibody (01/21/2024 12:22 PM EST) Hepatitis C Antibody Negative Negative 01/21/2024 3:15 PM EST [facility] Blood Venous blood specimen / Unknown Venipuncture / Unknown 01/21/2024 12:22 PM EST 01/21/2024 12:23 PM EST Jenny Alberto MD LAB BLOOD ORDERABLES Final Result [facility] [address] [place] [address] from Last 3 Months or Most Recently Relevant to Health Maintenance Insurance [facility] MEDICARE Care Teams Pad Assembler Relationship Specialty Start Date End Date Luis Lawson MD [address] [place] [address] [address] [place] [address] PCP - General 02/25/24
--- OUTSIDE RECORDS SUMMARY | 2024-10-22 07:26 | XMS_ITS | Encounter Summary ---
Author Organization [facility] Address [address] [place] [address] Care Team Providers Care Business Services Administrator Name Role Phone Field, [employer] Primary Care Provider [phone] Luis Lawson MD Primary Care Provider [phone] Encounter Details Date Type Department Care Team (Late st Contact Info) Description 01/23/2024 Lab Requisition [facility] [address] [place] [address] Jenny Alberto MD [address] [facility] [address] [place] [address] Elevation of levels of liver transaminase levels [...] 11/03/2024 8:40 AM EDT Office Visit [facility] [address], 2nd [place] [address] Jenny Alberto MD [address] [place] [address] 11/05/2024 9:00 AM EDT Office Visit [facility] [address], 2nd [place] [address] Myles Dyer MD [address] [place] [address] documented as of this encounter Procedures Procedure Name Priority Date/Time Associated Diagnosis Comments SURGICAL PATHOLOGY CONSULT Routine 01/23/2024 1:42 PM EST Elevation of levels of liver transaminase levels documented in this encounter Results * Surgical Pathology Consult (01/23/2024 1:42 PM EST) Case Report Sugical Pathology Consult Case: [id number] Authorizing Provider: Jenny Alberto MD Collected: 01/23/20248 Ordering Location: [facility] Lab Received: 01/23/2024 1342 Pathologist: Nasra Nava MD Specimen: Liver, [id number] 01/24/2024 4:41 PM EST [facility] Final Diagnosis LIVER, NEEDLE CORE BIOPSY ([id number]; 08/15/2023): - CLINICOPATHOLOGIC FINDINGS CONSISTENT WITH AUTOIMMUNE HEPATITIS WITH STAGE 4 FIBROSIS (SEE COMMENT). 01/24/2024 4:41 PM EST [facility] at 1641 EST Comment Sections [...] correlation is recommended. 01/24/2024 4:41 PM EST [facility] Clinical Information R74.01 - Elevation of levels of liver transaminase levels [ICD-10-CM] 01/24/2024 4:41 PM EST [facility] Gross Description A. [id number] Received along with a corresponding pathology report from [facility] are 3 slides labeled outside case: [id number] collected on 08/15/2023. 01/24/2024 4:41 PM EST [facility] Note: A resident was involved in the service. I attest I examined the relevant preparations for the specimens and confirmed the diagnosis or interpretation. 01/24/2024 4:41 PM EST [facility] Tissue Liver structure / Unknown 01/23/2024 1:42 PM EST 01/23/2024 1:42 PM EST us Jenny Alberto MD LAB PATHOLOGY ORDERABLES F inal Result [facility] [address] [place] [address] documented in this encounter Visit Diagnoses Diagnosis [...] documented as of this encounter Care Teams Business Services Administrator Relationship Specialty Start Date End Date Vita Reid APRN [address] [place] [address] PCP - General 07/23/20 02/24/24 Luis Lawson MD [address] [place] [address] [address] [place] [address] PCP - General 02/25/24 documented as of this encounter
--- OUTSIDE RECORDS SUMMARY | 2024-10-22 07:26 | XMS_ITS | Encounter Summary ---
Author Organization Healthcare Address [address] [place] [place] [address] Care Team Providers Care Physical Security Specialist Name Role Phone Luis Lawson MD Primary Care Provider [phone] Encounter Details Date Type Department Care Team (Late Contact Info) Description 10/13/2024 Orders Only [facility] Medicine Specialties [address], [address]nd [place] [address] Lori Levi, RN MEDICINE SPECIALTIES [...] Description 11/03/2024 8:40 AM EDT Office Visit [facility] [address], [address] [place] [address] Jenny Alberto MD [facility] [address] [place] [address] 11/05/2024 9:00 AM EDT Office Visit [place] [facility] [address], [address] [place] [address] Myles Dyer MD [address] [place] [address] documented as of this encounter [...] ORDERABLES Final Resul t Performing Organization Address [facility] de Phone Number EXTERNAL LAB * CBC and differential (10/13/2024 7:56 AM EDT) Blood Venous blood specimen / Unknown us Bjorn Cano MD LAB BLOOD ORDERABLES Final Resul t Performing Organization Address [facility] Co de Phone Number EXTERNAL LAB * Comprehensive metabolic panel (10/13/2024 7:56 AM EDT) Blood Venous blood specimen / Unknown us Bjorn Cano MD LAB BLOOD ORDERABLES Final Resul t Performing Organization Address [facility] Co de Phone Number EXTERNAL LAB documented [...] documented as of this encounter Care Teams Physical Security Specialist Relationship Specialty Start Date End Date Luis Lawson MD [address] [place] [address] PCP - General 02/25/24 documented as of this encounter
--- OUTSIDE RECORDS SUMMARY | 2024-10-22 07:26 | XMS_ITS | Encounter Summary ---
Author Organization Healthcare Address [address] [place] [address] Care Team Providers Care Inside Upholsterer Name Role Phone Luis Lawson MD Primary Care Provider [phone] Encounter Details Date Type Department Care Team (Late st Contact Info) Description 10/15/2024 Results Follow-Up [facility] Specialties [address], [address] [place] [address] Bjorn Cano MD [address] [place] [address] Social History Tobacco Use Types [...] Visit [facility] [address], [address] [place] [address] Jenny Alberto MD [address] [facility] [address] [place] [address] 11/05/2024 9:00 AM EDT Office Visit [facility] [address], [address] [place] [address] Myles Dyer MD [address] [facility] [address] [place] [address] documented as of this encounter Visit Diagnoses [...] as of this encounter Care Teams Inside Upholsterer Relationship Specialty Start Date End Date Luis Lawson MD [address] [place] [address] PCP - General 02/25/24 documented as of this encounter
--- OUTSIDE RECORDS SUMMARY | 2024-10-22 07:26 | XMS_ITS | Encounter Summary ---
Author Organization [facility] Address [address] [place] [address] Care Team Providers Care Spring Coverer Name Role Phone Luis Lawson MD Primary Care Provider [phone] Encounter Details Date Type Department Care Team [...] Description 11/03/2024 8:40 AM EDT Office Visit [facility]ties [address], 2[address] [place] [address] Jenny Alberto MD [address] [place] [address] 11/05/2024 9:00 AM EDT Office Visit [facility] [address], [address] [place] [address] Myles Dyer MD [address] [place] [address] documented as of this encounter Visit Diagnoses [...] documented as of this encounter Care Teams Spring Coverer Relationship Specialty Start Date End Date Luis Lawson MD [address] [place] [address] PCP - General 02/25/24 documented as of this encounter
--- OUTSIDE RECORDS SUMMARY | 2024-10-22 07:26 | XMS_ITS | Encounter Summary ---
Author Organization Healthcare Address [address] [place] [place] [address] Care Team Providers Care Zoning Engineer Name Role Phone Luis Lawson MD Primary Care Provider [phone] Encounter Details Date Type Department Care Team (Late Contact Info) Description 08/29/2024 Orders Only [facility] Medicine Specialties [address], [address] [place] [address] Caroline Tsang RN Autoimmune hepatitis [...] Description 11/03/2024 8:40 AM EDT Office Visit [facility] Medicine Specialties [address], [address] [place] [address] Jenny Alberto MD [address] [facility] [address] [place] [address] 11/05/2024 9:00 AM EDT Office Visit [facility] [address], [address] [place] [address] Myles Dyer MD [address] [place] [address] documented as of this encounter [...] Start Date End Date Luis Lawson MD [address] [place] [address] [address] [place] [address] PCP - General 02/25/24 documented as of this encounter
--- OUTSIDE RECORDS SUMMARY | 2024-10-22 07:26 | XMS_ITS | Encounter Summary ---
Author Organization Healthcare Address [address] [place] [address] Care Team Providers Care Instrumentation Technologist Name Role Phone Luis Lawson MD Primary Care Provider [phone] Encounter Details Date Type Department Care Team (Late st Contact Info) Description 09/01/2024 Telephone [facility] [address], [address] [place] [address] Caroline Tsang, RN Social History Tobacco Use [...] get labs around 10/24/24 Fax orders to [facility] Requested ER notes * Telephone Encounter [...] AM EDT Uploaded IgG CMP CBC Per [facility], no PT/INR drawn Requested AFP results [...] to the following: Comprehensive Metabolic Panel, Plasma [[id number]] on 08/29/2024 documented in this encounter Plan of Treatment Upcoming Encounters Date Type Department Care Team (Late st Contact Info) Description 11/03/2024 8:40 AM EDT Office Visit [facility] Medicine Specialties [address], [address] [place] [address] Jenny Alberto MD [address] [facility] [address] [place] [address] 11/05/2024 9:00 AM EDT Office Visit [facility] Medicine Specialties [address], [address] [place] [address] Myles Dyer MD [address] [facility] [address] [place] [address] documented as of this encounter Visit Diagnoses [...] documented as of this encounter Care Teams Instrumentation Technologist Relationship Specialty Start Date End Date Luis Lawson MD [address] [place] [address] [place] [address] PCP - General 02/25/24 documented as of this encounter
[2024-10-22 07:59] LABS: Hematocrit 44.6 % (42.0-52.0); Hemoglobin 15.0 g/dL (14.1-18.0); Immature Granulocytes % 0.3 %; Mean Corpuscular HGB Conc 33.6 g/dL (31.8-35.4); Mean Corpuscular Hemoglobin 31.6 pg (27.0-31.2); Mean Corpuscular Volume 93.9 fl (80-94); Nucleated Red Blood Cells % 0 %; Platelet Count 122 K/mm3 (142-424); Red Blood Count 4.75 M/mm3 (4.60-6.20); Red Cell Distribution Width-SD 50.4 fL; White Blood Count 6.2 K/mm3 (4.8-10.8)
[2024-10-22 08:30] LABS: Albumin Level 4.1 g/dl (3.5-5.0); Chloride 103 mmol/L (98-107); Potassium 4.0 mmoL/L (3.5-5.1); Sodium 137 mmol/L (136-145)
[2024-10-22 08:33] LABS: Alanine Aminotransferase 60 U/L (12-78); Albumin/Globulin Ratio 1.4 (1.1-1.8); Alkaline Phosphatase 72 U/L (38-126); Anion Gap 6.0 mEq/L (5-15); Aspartate Amino Transferase 41 U/L (17-59); Bilirubin,Total 0.8 mg/dl (0.2-1.3); Calcium 9.6 mg/dl (8.4-10.2); Carbon Dioxide 32 mmol/L (22.0-30.0); Globulin 3.0 g/dL (1.3-3.2); Glucose 107 mg/dl (74-100); Total Protein,Serum 7.1 g/dl (6.3-8.2)
[2024-10-22 08:38] LABS: Blood Urea Nitrogen 25 mg/dl (9-20); Creatinine,Serum 0.90 mg/dl (0.66-1.25); Estimated Glomerular Filt Rate 82 ml/min (>60); GFR (African American) 99 ML/MIN (>60)
[2024-10-23 12:12] LABS: Immunoglobulin G, Qn 1380 mg/dL (603-1613)
== END 2024-10-22 23:59 | disposition home or self-care (01) ==
LOC: LAB 07:24
PROVIDERS: PCP Internal Medicine; Visit Provider Internal Medicine Gastroenterology
DX: K74.60 Unspecified cirrhosis of liver (principal); K75.4 Autoimmune hepatitis
CPT/HCPCS: 36415; 80053; 82784; 85025

== ENCOUNTER 2024-11-17 07:17 | Outpatient (CLI) | payer MEDICARE, SELFPAY ==
--- OUTSIDE RECORDS SUMMARY | 2024-07-14 09:00 | XMS_ITS | Encounter Summary ---
Author Organization [facility] Address [address] [id number] Care Team Providers Care Supervisor [employer] Name Role Phone Luis Lawson MD Primary Care Provider [phone] Reason for Referral * Genetic Testing (Routine) - Authorized Specialty Diagnoses / Procedures Referred By Contac t Referred To Contact Lab Diagnoses Autoimmune hepatitis (CMS/HCC) Procedures IgG, Plasma Jenny Alberto MD [address] [address] Phone: tel: fax: Referral ID Status Reason Start Date Expiration Date V isits Requested Visits Authorized [id number] Authorized 07/14/2024 01/13/2026 1 1 * Consultation (Routine) - Closed Specialty Diagnoses / Procedures Referred By Contac t Referred To Contact Diagnoses Autoimmune hepatitis (CMS/HCC) Nausea Jenny Alberto MD [address] [address] Phone: tel: fax: Referral ID Status Reason Start Date Expiration Date Visits Re quested Visits Authorized [id number] Closed 07/14/2024 01/13/2026 1 1 * Genetic Testing (Routine) - Closed Specialty Diagnoses / Procedures Referred By Contac t Referred To Contact Lab Diagnoses Autoimmune hepatitis (CMS/HCC) Procedures IgG, Plasma Jenny Alberto MD [address] [facility] [address] [place] [address] Phone: tel: fax: Referral ID Status Reason Start Date Expiration Date Visits Re quested Visits Authorized [id number] Closed 07/14/2024 01/13/2026 1 1 Reason for Visit * Reason Comments Nausea and vomiting, unspecified vomitin g type Autoimmune hepatitis (CMS/HCC) Encounter Details Date Type Department Care Team (Late st Contact Info) Description 07/14/2024 9:00 AM EDT [facility] [address] [place] [address] Jenny Alberto MD [address] [facility] [address] [place] [address] Autoimmune hepatitis (CMS/HCC) (Primary Dx); Nausea; Other specified hypothyroidism; Encounter for nursing home current use of azathioprine; On prednisone therapy Social History Tobacco Use Types Packs/Day Years Used Date Smoking Tobacco: Never Passive Smoke Exposure: Never Smokeless Tobacco: Never Alcohol Use Standard Drinks/Week Comments Never 0 (1 standard drink = 0.6 oz pur e alcohol) PHQ-2 Answer Date Recorded Patient Health Questionnaire-2 Score 0 09/22/2024 PHQ-9 Answer Date Recorded Patient Health Questionnaire-9 Score 0 09/22/2024 Sex and Gender Information Value Date Recorded Sex Assigned at Not on file Legal Sex Male 7:48 PM EDT Gender Identity Not on file Sexual Orientation Not on file documented as of this encounter Last Filed Vital Signs Vital Sign Reading Time Taken Comments Blood Pressure 155/96 07/14/2024 8:30 AM EDT provider made aware Pulse 99 07/14/2024 8:30 AM EDT Temperature 36.7 C (98 F) 07/14/2024 8:30 AM EDT Respiratory Rate - - Oxygen Saturation 97% 07/14/2024 8:3 0 AM EDT Inhaled Oxygen Concentration - - Weight 75.9 kg (167 lb 5.3 oz) 07/14/2024 8:30 AM EDT Height 175.3 cm (5' 9 ) 07/14/2024 8:30 AM EDT Body Mass Index 24.71 07/14/2024 8:30 AM EDT documented in this encounter Functional Status * Over the past 2 weeks, how often have you been bothered by any of the following problems? Question Answer Date of Assessment Author Little interest or pleasure in doing things Not at all 09/22/2024 9:08 AM JAREDT Harsha Reina Feeling down, depressed, or hopeless Not at all 09/22/2024 9:08 AM JAREDT Harsha Reina Patient Health Questionnaire -2 Score 0 09/22/2024 9:08 AM JAREDT Harsha Reina * Question Answer Date of Assessment Author Trouble falling or staying a sleep, or sleeping too much Not at all 09/22/2024 9:08 AM JAREDT Harsha Reina Feeling tired or having edyta le energy Not at all 09/22/2024 9:08 AM JAREDT Harsha Reina Poor appetite or overeating Not at all 09/22/2024 9: 08 AM JAREDT Harsha Reina Feeling bad about yourself - or that you are a failure or have let yourself or your family down Not at all 09/22/2024 9:08 AM Harsha Brar Trouble concentrating on thi ngs, such as reading the newspaper or watching television Not at all 09/22/2024 9:08 AM Harsha Brar Moving or speaking so slowly that other people could have noticed? Or the opposite - being so fidgety or restless that you have been moving around a lot more than usual. Not at all 09/22/2024 9:08 AM Hrasha Brar Thoughts that you would be b meredith off or hurting yourself in some way Not at all 09/22/2024 9:08 AM Harsha Brar Patient Health Questionnaire -9 Score 0 09/22/2024 9:08 AM JAREDT Harsha Reina * If you checked off any problems on this questionnaire so far, Question Answer Date of Assessment Author How difficult have these problems made it for you to do your work, take care of things at home, or get along with other people? Not difficult at all 09/22/2024 9:08 AM EDT Harsha Reina documented as of this encounter Miscellaneous Notes * Addendum Note - Caroline Avilez RN - 07/14/2024 9:00 AM EDTAddended by: CAROLINE AVILEZ on: 08/29/2024 03:23 PM Modules accepted: Orders * Addendum Note - Caroline Avilez RN - 07/14/2024 9:00 AM EDTAddended by: CAROLINE AVILEZ on: 10/22/2024 03:53 PM Modules accepted: Orders * Progress Notes - Jenny Alberto MD - 07/14/2024 9:00 AM EDT Subjective Patient ID: Magen Patino is a 73 y.o. male. 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 Last seen 06/03 for worsening nausea/vomiting, bloating Last visit, recommended EGD and rechecking his labs, TSH, lipase since he had high TSH several months ago Lipase/Tsh were normal He has since been seen by his PCP 3 weeks ago and TSH was again elevated and has been started on levothyroxine Was treated with antibiotics for diverticulitis, in May- went to ER In [facility] 06/05/24 No abd pain,hematochezia Reports improvement of nausea, but still has nausea, thus he stopped azathioprine on his own. He has been off azathioprine for 2 weeks EGD- I reviewed report of EGD done by Dr. Cabezas 06/02/24 at [facility]: Normal esophagus PHG- gastric biopsies: reactive gastropathy Normal duodenum- biopsies normal Last year colonoscopy flat polyps with Dr. Cabezas On prednisone 5mg/day Azathioprine 50mg/d Denies abdominal pain/hematochezia/vomiting Has lost weight The following portions of the chart were reviewed this encounter and updated as appropriate: Tobacco Allergies Meds Problems Med Hx Surg Hx Fam Hx Review of Systems 14-point review of systems was negative, except as per HPI. Objective Physical Exam Visit Vitals BP (!) 155/96 Comment: provider made aware Pulse 99 Temp 36.7 ??C (98 ??F) Ht 1.753 m (5' 9 ) Wt 75.9 kg (167 lb 5.3 oz) SpO2 97% BMI 24.71 kg/m?? General : no acute distress, no peripheral and temporal muscle wasting Skin : no jaundice, no spider telangiectasias or palmar erythema, no rashes, Eyes : no scleral icterus , pink conjunctivae ENMT : intact, mucous membranes moist, no apparent injury Head/Neck : neck supple, no apparent injury Resp/Thorax : normal respiratory effort, patent airways, clear to auscultation bilaterally, normal breath sounds Cardiovascular: regular rate and rhythm, no murmurs Gastrointestinal : soft, non-tender, no hepatomegaly, no splenomegaly, no ascites Musculoskeletal ROM Intact, No Joint Swelling, Normal Strength Extremities : no edema, no cyanosis Neurological : alert and oriented x 4, absence of asterixis, no focal deficit Lymphatics : no significant lymphadenopathy Psychological : appropriate mood and behavior I reviewed the patient's outside labs from 06/30 and discussed these with the patient. 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 Some improvement, but still nauseous - had high TSH last year, normalized in may and back up in June and was started by PCP on levothyroxine - I recommended EGD and EGD was overall negative for etiologies of nausea - was seen in local ER 06/05 for worsening nausea- thus went to local ER and per pt was assessed to have diverticulitis and was given antibiotics Some improvement but he stopped his azathioprine 2 weeks ago because he has continued to be nauseous. - retrieve ED records - recommend repeat colonoscopy in about 1-2months. Pt reports he has appointment this week with (surgeon in [place]) who will be coordinating with Dr. Cabezas who did his colonoscopy last year for flat polyp about repeating colonoscopy sooner. - I reviewed labs today-- and off azathioprine for 2 weeks and his liver enzymes and igG are normal. Can try decreasing dose of azathioprine to 25mg/day and repeat labs in 2 weeks. Continue prednisone 5mg/day for now, since we are decreasing his azathioprine dose - repeat cbc,cmp,igg in 2 weeks - continue levothyroxine, recently started a few weeks ago, check TSH RTC 2 months documented in this encounter Plan of Treatment Upcoming Encounters Date Type Department Care Team (Late st Contact Info) Description 02/09/2025 8:30 AM EST Appointment [facility] [address] [place] [address] 02/09/2025 10:00 AM EST Office Visit [facility] Medicine Specialties [address], [address] [place] [address] Jenny Alberto MD [address] [place] [address] 05/06/2025 9:00 AM EST Office Visit [facility] Medicine [facility]ties [address], [address] [place] [address] Myles Dyer MD [address] [place] [address] Scheduled Orders Name Type Priority Associated Diagnoses Orde r Schedule IgG, Plasma Lab Routine Autoimmune hepatitis (CMS/HCC) as needed for 24 Occurrences starting 07/14/2024 until 01/14/2026 Comprehensive Metabolic Panel, Plasma Lab Routine Autoimmune hepatitis (CMS/HCC) as needed for 24 Occurrences starting 08/29/2024 until 01/14/2026, 1 completed CBC and Differential Lab Routine Autoimmune hepatitis (CMS/HCC) as needed for 24 Occurrences starting 10/22/2024 until 01/14/2026, 1 completed Scheduled Referrals Name Type Priority Associated Diagnoses Orde r Schedule Follow Up GI Outpatient Referral Routine Autoimmune hepatitis (CMS/HCC) Nausea Expected: 09/13/2024, Expires: 08/14/2025 documented as of this encounter Results * CBC and Differential (10/22/2024 3:55 PM EDT) Blood Venous blood specimen / Unknown Jenny Alberto MD LAB BLOOD ORDERABLES Final Result Performing Organization Address City/[facility]/ZIP Co de Phone Number EXTERNAL LAB * Comprehensive Metabolic Panel, Plasma (08/29/2024 3:23 PM EDT) Blood Venous blood specimen / Unknown Jenny Alberto MD LAB BLOOD ORDERABLES Final Result EXTERNAL LAB * TSH Reflex FT4 (07/14/2024 10:01 AM EDT) Thyroid Stimulating Hormone, Plasma 2.24 0.40 - 4.20 uIU/mL 07/14/2024 11:20 AM EDT [facility] Blood Venous blood specimen / Unknown Venipuncture / Unknown 07/14/2024 10:01 AM EDT 07/14/2024 10:01 AM EDT Jenny Alberto MD LAB BLOOD ORDERABLES Final Result [facility] [address] [place] [address] * IgG, Plasma (07/14/2024 10:01 AM EDT) IGG 1,222 720 - 1,589 mg/dL 07/14/2024 11:20 AM EDT [facility] Blood Venous blood specimen / Unknown Venipuncture / Unknown 07/14/2024 10:01 AM EDT 07/14/2024 10:01 AM EDT Jenny Alberto MD LAB BLOOD ORDERABLES Final Result Performing Organization Address [facility]/ZIP Co de Phone Number [facility] [address] [place] [address] * (ABNORMAL) Comprehensive metabolic panel (07/14/2024 10:01 AM EDT) Glucose, Plasma 102(H) 74 - 99 mg/dL 07/14/2024 11:20 AM EDT [facility] BUN, Plasma 16 8 - 23 mg/dL 07/14/2024 11:20 AM EDT [facility] Creatinine, Plasma 0.81 0.70 - 1.20 mg/dL 07/14/2024 11:20 AM EDT [facility] BUN/Creatinine Ratio 20 07/14/2024 11:20 AM EDT [facility] Sodium, Plasma 142 136 - 145 mmol/L 07/14/2024 11:20 AM EDT [facility] Potassium, Plasma 4.0 3.6 - 4.9 mmol/L 07/14/2024 11:20 AM EDT [facility] Chloride, Plasma 106 97 - 107 mmol/L 07/14/2024 11:20 AM EDT [facility] CO2, Plasma 25 22 - 29 mmol/L 07/14/2024 11:20 AM EDT [facility] Anion Gap 11 6 - 16 mmol/L 07/14/2024 11:20 AM EDT [facility] Total Calcium, Plasma 9.6 8.9 - 10.2 mg/dL 07/14/2024 11:20 AM EDT [facility] Total Protein 7.1 6.3 - 7.9 g/dL 07/14/2024 11:20 AM EDT [facility] Albumin, Plasma 4.1 3.5 - 5.2 g/dL 07/14/2024 11:20 AM EDT [facility] AST, Plasma 30 10 - 50 U/L 07/14/2024 11:20 AM EDT [facility] ALT, Plasma 36 10 - 50 U/L 07/14/2024 11:20 AM EDT [facility] Alkaline Phosphatase, Plasma 79 40 - 115 U/L 07/14/2024 11:20 AM EDT [facility] Total Bilirubin, Plasma 0.6 0.2 - 1.1 mg/dL 07/14/2024 11:20 AM EDT [facility] eGFRcr 91.9 mL/min/1.7 3m*2 07/14/2024 11:20 AM EDT [facility] Comment:Reported eGFRcr in m L/min/1.73m2 is based the CKD-EPI 2020 equation that does not use a race coefficient. 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
--- OUTSIDE RECORDS SUMMARY | 2024-09-22 09:00 | XMS_ITS | Encounter Summary ---
Author Organization [facility] Address [address] [place] [address] Care Team Providers Care Heat Treat Furnace Operator Name Role Phone Luis Lawson MD Primary Care Provider [phone] Reason for Referral * Consultation (Routine) - Closed Specialty Diagnoses / Procedures Referred By Contac t Referred To Contact Diagnoses Autoimmune hepatitis (CMS/HCC) Other cirrhosis of liver (CMS/HCC) Bjorn Cano MD [address] [address] Phone: tel: fax: Referral ID Status Reason Start Date Expiration Date Visits Re quested Visits Authorized [id number] Closed 09/22/2024 03/24/2026 1 1 * Imaging (Routine) - Pending Review Specialty Diagnoses / Procedures Referred By Contac t Referred To Contact Radiology Diagnoses Other cirrhosis of liver (CMS/HCC) Procedures US Liver Screen Bjorn Cano MD [address] [address] Phone: tel: fax: Referral ID Status Reason Start Date Expiration Date V isits Requested Visits Authorized [id number] Pending Review 09/22/2024 03/24/2026 1 1 * Genetic Testing (Routine) - Closed Specialty Diagnoses / Procedures Referred By Contac t Referred To Contact Lab Diagnoses Autoimmune hepatitis (CMS/HCC) Procedures IgG Bjorn Cano MD [address] [facility] [address] [place] [address] Phone: tel: fax: Referral ID Status Reason Start Date Expiration Date Visits Re quested Visits Authorized [id number] Closed 09/22/2024 03/24/2026 1 1 Reason for Visit * Reason Comments Autoimmune Hepatitis Nausea Vomiting Encounter Details Date Type Department Care Team (Late st Contact Info) Description 09/22/2024 9:00 AM EDT [facility] [address] [place] [address] Jenny Alberto MD [address] [facility] [address] [place] [address] Autoimmune hepatitis (CMS/HCC) (Primary Dx); [...] EGD: Completed 06/02/[address] Vargas at [place]. No EV. PHG with reactive gastropathy. The [...] Last EGD 06/02/[address] Vargas at [place]. No EV. PHG with reactive gastropathy. - [...] liver enzymes and IgG (ALT from 50s/60s [id number])- increase prednisone to 30mg/day, start myfortic 180mg [...] Info) Description 02/09/2025 8:30 AM EST Appointment [facility] Ultrasound [address] [place] [address] 02/09/2025 10:00 AM EST Office Visit [facility] Medicine Specialties [address] [place] [address] Jenny Alberto MD [address] [place] [address] 05/06/2025 9:00 AM EST Office Visit [facility] Medicine Specialties [address] [place] [address] Myles Dyer MD [address] [place] [address] Scheduled Orders Name Type Priority Associated Diagnoses Orde r Schedule US Liver Screen Imaging Routine Other cirrhosis of liver (CMS/HCC) Expected: 01/12/2025 (Approximate), Expires: 03/26/2026 Scheduled Referrals Name Type Priority Associated Diagnoses Orde r Schedule Follow Up GI Outpatient Referral Routine Autoimmune hepatitis (CMS/HCC) Other cirrhosis of liver (CMS/HCC) Expected: 11/03/2024, Expires: 10/23/2025 documented as of this encounter Results * (ABNORMAL) IgG (09/22/2024 10:25 AM EDT) IGG 1,608(H) 720 - 1,589 mg/dL 09/22/2024 12:25 PM EDT [facility] Blood Venous blood specimen / Unknown Venipuncture / Unknown 09/22/2024 10:25 AM EDT 09/22/2024 10:25 AM EDT us Bjorn Cano MD LAB BLOOD ORDERABLES Final Resul t Performing Organization Address [facility] de Phone Number [address] [address] * (ABNORMAL) Protime-INR (09/22/2024 10:25 AM EDT) Prothrombin Time 14.7(H) 12.0 - 14.3 sec LAB COAGULATION METHOD 09/22/2024 12:02 PM EDT [facility] INR 1.1 0.9 - 1.1 LAB COAGULATION METHOD 09/22/2024 12:02 PM EDT [facility] Blood Venous blood specimen / Unknown Venipuncture / Unknown 09/22/2024 10:25 AM EDT 09/22/2024 10:25 AM EDT Narrative [facility] - 09/22/2024 12:02 PM EDT OPTIMAL INR RANGES FOR PATIENT ON ORAL ANTICOAGULANT THERAPY Prevention of venous thromboembolism INR 2.0 to 3.0 In patients with heart disease: Atrial fibrillation INR 2.0 to 3.0 Valvular heart disease INR 2.0 to 3.0 Tissue heart valves INR 2.0 to 3.0 Mechanical prosthetic valves INR 2.5 to 3.5 Prevention of recurrent [place] INR 2.5 to 3.5 us Bjorn Cano MD LAB BLOOD ORDERABLES Final Resul t Performing Organization Address City/[facility]/ZIP Co de Phone Number [facility] [address] [place] [address] * (ABNORMAL) CBC and differential (09/22/2024 10:25 AM EDT) WBC Count 5.85 3.70 - 10.30 10*3/uL LAB HEMATOLOGY METHOD 09/22/2024 12:24 PM EDT [facility] RBC Count 4.69 4.60 - 6.10 10*6/uL LAB HEMATOLOGY METHOD 09/22/2024 12:24 PM EDT [facility] HGB 14.8 13.7 - 17.5 g/dL LAB HEMATOLOGY METHOD 09/22/2024 12:24 PM EDT [facility] HCT 44.6 40.0 - 51.0 % LAB HEMATOLOGY METHOD 09/22/2024 12:24 PM EDT [facility] Platelet Count 128(L) 155 - 369 10*3/uL LAB HEMATOLOGY METHOD 09/22/2024 12:24 PM EDT [facility] MCV 95 79 - 98 fL LAB HEMATOLOGY METHOD 09/22/2024 12:24 PM EDT [facility] MCH 31.6 26.0 - 32.0 pg LAB HEMATOLOGY METHOD 09/22/2024 12:24 PM EDT [facility] MCHC 33.2 30.7 - 35.5 g/dL LAB HEMATOLOGY METHOD 09/22/2024 12:24 PM EDT [facility] RDW 14.2 11.5 - 14.5 % LAB HEMATOLOGY METHOD 09/22/2024 12:24 PM EDT [facility] MPV 10.6 8.8 - 12.5 fL LAB HEMATOLOGY METHOD 09/22/2024 12:24 PM EDT [facility] nRBC 0.0 <=0.0 per 100 WBCs LAB HEMATOLOGY METHOD 09/22/2024 12:24 PM EDT [facility] Differential Type Automated LAB HEMATOLOGY METHOD 09/22/2024 12:24 PM EDT [facility] Neutrophils % 61 % LAB HEMATOLOGY METHOD 09/22/2024 12:24 PM EDT [facility] Lymphocytes % 27 % LAB HEMATOLOGY METHOD 09/22/2024 12:24 PM EDT [facility] Monocytes % 9 % LAB HEMATOLOGY METHOD 09/22/2024 12:24 PM EDT [facility] Eosinophils % 2 % LAB HEMATOLOGY METHOD 09/22/2024 12:24 PM EDT [facility] Basophils % 1 % LAB HEMATOLOGY METHOD 09/22/2024 12:24 PM EDT [facility] Immature Granulocytes % 0 % LAB HEMATOLOGY METHOD 09/22/2024 12:24 PM EDT [facility] Neutrophils Absolute 3.54 1.60 - 6.10 10*3/uL LAB HEMATOLOGY METHOD 09/22/2024 12:24 PM EDT [facility] Lymphocytes Absolute 1.60 1.20 - 3.90 10*3/uL LAB HEMATOLOGY METHOD 09/22/2024 12:24 PM EDT [facility] Monocytes Absolute 0.55 0.30 - 0.90 10*3/uL LAB HEMATOLOGY METHOD 09/22/2024 12:24 PM EDT [facility] Eosinophils Absolute 0.11 0.00 - 0.50 10*3/uL LAB HEMATOLOGY METHOD 09/22/2024 12:24 PM EDT [facility] Basophils Absolute 0.04 0.00 - 0.10 10*3/uL LAB HEMATOLOGY METHOD 09/22/2024 12:24 PM EDT [facility] Immature Granulocytes Absolute 0.01 0.00 - 0.06 10*3/uL LAB HEMATOLOGY METHOD 09/22/2024 12:24 PM EDT [facility] Blood Venous blood specimen / Unknown Venipuncture / Unknown 09/22/2024 10:25 AM EDT 09/22/2024 10:25 AM EDT Narrative [facility] - 09/22/2024 12:24 PM EDT Therapeutic decision making should be based on absolute values, rather than percentages. us Bjorn Cano MD LAB BLOOD ORDERABLES Final Resul t [facility] [address] [place] [address] * (ABNORMAL) Comprehensive metabolic panel (09/22/2024 10:25 AM EDT) Glucose, Plasma 93 74 - 99 mg/dL 09/22/2024 11:58 AM EDT [facility] BUN, Plasma 23 8 - 23 mg/dL 09/22/2024 11:58 AM EDT [facility] Creatinine, Plasma 0.93 0.70 - 1.20 mg/dL 09/22/2024 11:58 AM EDT [facility] BUN/Creatinine Ratio 25 09/22/2024 11:58 AM EDT [facility] Sodium, Plasma 140 136 - 145 mmol/L 09/22/2024 11:58 AM EDT [facility] Potassium, Plasma 4.4 3.6 - 4.9 mmol/L 09/22/2024 11:58 AM EDT [facility] Chloride, Plasma 103 97 - 107 mmol/L 09/22/2024 11:58 AM EDT [facility] CO2, Plasma 28 22 - 29 mmol/L 09/22/2024 11:58 AM EDT [facility] Anion Gap 9 6 - 16 mmol/L 09/22/2024 11:58 AM EDT [facility] Total Calcium, Plasma 9.9 8.9 - 10.2 mg/dL 09/22/2024 11:58 AM EDT [facility] Total Protein 7.2 6.3 - 7.9 g/dL 09/22/2024 11:58 AM EDT [facility] Albumin, Plasma 4.2 3.5 - 5.2 g/dL 09/22/2024 11:58 AM EDT [facility] AST, Plasma 95(H) 10 - 50 U/L 09/22/2024 11:58 AM EDT [facility] ALT, Plasma 115(H) 10 - 50 U/L 09/22/2024 11:58 AM EDT [facility] Alkaline Phosphatase, Plasma 117(H) 40 - 115 U/L 09/22/2024 11:58 AM EDT [facility] Total Bilirubin, Plasma 0.9 0.2 - 1.1 mg/dL 09/22/2024 11:58 AM EDT [facility] eGFRcr 85.6 mL/min/1.7 3m*2 09/22/2024 11:58 AM EDT [facility] Comment:Reported eGFRcr in m L/min/1.73m2 is based the CKD-EPI 2020 equation that does not use a race coefficient. Blood Venous blood specimen / Unknown Venipuncture / Unknown 09/22/2024 10:25 AM EDT 09/22/2024 10:25 AM EDT us Bjorn Cano MD LAB BLOOD ORDERABLES Final Resul t [facility] [address] [place] [address] documented in this encounter Visit Diagnoses Diagnosis [...] documented as of this encounter Care Teams Heat Treat Furnace Operator Relationship Specialty Start Date End Date Luis Lawson MD [address] [place] [address] PCP - General 02/25/24 11/02/24 documented as of this encounter
--- OUTSIDE RECORDS SUMMARY | 2024-09-22 10:40 | XMS_ITS | Encounter Summary ---
Author Organization Healthcare Address [address] [place] [place] [address] Care Team Providers Care Cardiac Technician Name Role Phone Luis Lawson MD Primary Care Provider [phone] Reason for Visit * Genetic Testing (Routine) - Closed Specialty Diagnoses / Procedures Referred By Contac t Referred To Contact Lab Diagnoses Autoimmune hepatitis (CMS/HCC) Procedures IgG Bjorn Cano MD [address] [place] [address] Phone: tel: fax: Referral ID Status Reason Start Date Expiration Date Visits Re quested Visits Authorized [id number] Closed 09/22/2024 03/24/2026 1 1 Encounter Details Date Type Department Care Team (Latest Contact Info) Description 09/22/2024 10:40 AM EDT Clinical Support [place] [facility] [address] [place] [address] Autoimmune hepatitis (CMS/HCC) Social History [...] Info) Description 02/09/2025 8:30 AM EST Appointment [facility] Ultrasound [address] [place] [id number] 02/09/2025 10:00 AM EST Office Visit [facility] Medicine Specialties [address] [place] [address] Jenny Alberto MD [address] [place] [address] 05/06/2025 9:00 AM EST Office Visit [facility] Medicine Specialties [address] [place] [address] Myles Dyer MD [address] [place] [address] documented as of this encounter [...] - 1,589 mg/dL 09/22/2024 12:25 PM EDT [facility] Blood Venous blood specimen / Unknown Venipuncture / Unknown 09/22/2024 10:25 AM EDT 09/22/2024 10:25 AM EDT us Bjorn Cano MD LAB BLOOD ORDERABLES Final Resul t [facility] [address] [place] [address] * (ABNORMAL) CBC and differential (09/22/2024 10:25 AM EDT) WBC Count 5.85 3.70 - 10.30 10*3/uL LAB HEMATOLOGY METHOD 09/22/2024 12:24 PM EDT [facility] RBC Count 4.69 4.60 - 6.10 10*6/uL LAB HEMATOLOGY METHOD 09/22/2024 12:24 PM EDT [facility] HGB 14.8 13.7 - 17.5 g/dL LAB HEMATOLOGY METHOD 09/22/2024 12:24 PM EDT [facility] HCT 44.6 40.0 - 51.0 % LAB HEMATOLOGY METHOD 09/22/2024 12:24 PM EDT [facility] Platelet Count 128(L) 155 - 369 10*3/uL LAB HEMATOLOGY METHOD 09/22/2024 12:24 PM EDT [facility] MCV 95 79 - 98 fL LAB HEMATOLOGY METHOD 09/22/2024 12:24 PM EDT [facility] MCH 31.6 26.0 - 32.0 pg LAB HEMATOLOGY METHOD 09/22/2024 12:24 PM EDT [facility] MCHC 33.2 30.7 - 35.5 g/dL LAB HEMATOLOGY METHOD 09/22/2024 12:24 PM EDT [facility] RDW 14.2 11.5 - 14.5 % LAB HEMATOLOGY METHOD 09/22/2024 12:24 PM EDT [facility] MPV 10.6 8.8 - 12.5 fL LAB HEMATOLOGY METHOD 09/22/2024 12:24 PM EDT [facility] nRBC 0.0 <=0.0 per 100 WBCs LAB HEMATOLOGY METHOD 09/22/2024 12:24 PM EDT [facility] Differential Type Automated LAB HEMATOLOGY METHOD 09/22/2024 12:24 PM EDT [facility] Neutrophils % 61 % LAB HEMATOLOGY METHOD 09/22/2024 12:24 PM EDT [facility] Lymphocytes % 27 % LAB HEMATOLOGY METHOD 09/22/2024 12:24 PM EDT [facility] Monocytes % 9 % LAB HEMATOLOGY METHOD 09/22/2024 12:24 PM EDT [facility] Eosinophils % 2 % LAB HEMATOLOGY METHOD 09/22/2024 12:24 PM EDT [facility] Basophils % 1 % LAB HEMATOLOGY METHOD 09/22/2024 12:24 PM EDT [facility] Immature Granulocytes % 0 % LAB HEMATOLOGY METHOD 09/22/2024 12:24 PM EDT [facility] Neutrophils Absolute 3.54 1.60 - 6.10 10*3/uL LAB HEMATOLOGY METHOD 09/22/2024 12:24 PM EDT [facility] Lymphocytes Absolute 1.60 1.20 - 3.90 10*3/uL LAB HEMATOLOGY METHOD 09/22/2024 12:24 PM EDT [facility] Monocytes Absolute 0.55 0.30 - 0.90 10*3/uL LAB HEMATOLOGY METHOD 09/22/2024 12:24 PM EDT [facility] Eosinophils Absolute 0.11 0.00 - 0.50 10*3/uL LAB HEMATOLOGY METHOD 09/22/2024 12:24 PM EDT [facility] Basophils Absolute 0.04 0.00 - 0.10 10*3/uL LAB HEMATOLOGY METHOD 09/22/2024 12:24 PM EDT [facility] Immature Granulocytes Absolute 0.01 0.00 - 0.06 10*3/uL LAB HEMATOLOGY METHOD 09/22/2024 12:24 PM EDT [facility] Blood Venous blood specimen / Unknown Venipuncture / Unknown 09/22/2024 10:25 AM EDT 09/22/2024 10:25 AM EDT Narrative [facility] - 09/22/2024 12:24 PM EDT Therapeutic decision making should be based on absolute values, rather than percentages. us Bjorn Cano MD LAB BLOOD ORDERABLES Final Resul t [facility] [address] [place] [address] * (ABNORMAL) Protime-INR (09/22/2024 10:25 AM EDT) Prothrombin Time 14.7(H) 12.0 - 14.3 sec LAB COAGULATION METHOD 09/22/2024 12:02 PM EDT [facility] INR 1.1 0.9 - 1.1 LAB COAGULATION METHOD 09/22/2024 12:02 PM EDT [facility] Blood Venous blood specimen / Unknown Venipuncture / Unknown 09/22/2024 10:25 AM EDT 09/22/2024 10:25 AM EDT Narrative [facility] - 09/22/2024 12:02 PM [...] MD LAB BLOOD ORDERABLES Final Resul t [facility] [address] [place] [address] * (ABNORMAL) Comprehensive metabolic panel (09/22/2024 10:25 AM EDT) Glucose, Plasma 93 74 - 99 mg/dL 09/22/2024 11:58 AM EDT [facility] BUN, Plasma 23 8 - 23 mg/dL 09/22/2024 11:58 AM EDT [facility] Creatinine, Plasma 0.93 0.70 - 1.20 mg/dL 09/22/2024 11:58 AM EDT [facility] BUN/Creatinine Ratio 25 09/22/2024 11:58 AM EDT [facility] Sodium, Plasma 140 136 - 145 mmol/L 09/22/2024 11:58 AM EDT [facility] Potassium, Plasma 4.4 3.6 - 4.9 mmol/L 09/22/2024 11:58 AM EDT [facility] Chloride, Plasma 103 97 - 107 mmol/L 09/22/2024 11:58 AM EDT [facility] CO2, Plasma 28 22 - 29 mmol/L 09/22/2024 11:58 AM EDT [facility] Anion Gap 9 6 - 16 mmol/L 09/22/2024 11:58 AM EDT [facility] Total Calcium, Plasma 9.9 8.9 - 10.2 mg/dL 09/22/2024 11:58 AM EDT [facility] Total Protein 7.2 6.3 - 7.9 g/dL 09/22/2024 11:58 AM EDT [facility] Albumin, Plasma 4.2 3.5 - 5.2 g/dL 09/22/2024 11:58 AM EDT [facility] AST, Plasma 95(H) 10 - 50 U/L 09/22/2024 11:58 AM EDT [facility] ALT, Plasma 115(H) 10 - 50 U/L 09/22/2024 11:58 AM EDT [facility] Alkaline Phosphatase, Plasma 117(H) 40 - 115 U/L 09/22/2024 11:58 AM EDT [facility] Total Bilirubin, Plasma 0.9 0.2 - 1.1 mg/dL 09/22/2024 11:58 AM EDT [facility] eGFRcr 85.6 mL/min/1.7 3m*2 09/22/2024 11:58 AM EDT [facility] Comment:Reported eGFRcr in m L/min/1.73m2 is based the CKD-EPI 2020 equation that does not use a race coefficient. Blood Venous blood specimen / Unknown Venipuncture / Unknown 09/22/2024 10:25 AM EDT 09/22/2024 10:25 AM EDT us Bjorn Cano MD LAB BLOOD ORDERABLES Final Resul t [facility] [address] [place] [address] documented in this encounter Visit Diagnoses Diagnosis [...] documented as of this encounter Care Teams Cardiac Technician Relationship Specialty Start Date End Date Luis Lawson MD [address] [place] [address] PCP - General 02/25/24 11/02/24 documented as of this encounter
--- OUTSIDE RECORDS SUMMARY | 2024-11-03 08:40 | XMS_ITS | Encounter Summary ---
Author Organization [facility] Address [address] [place] [address] Care Team Providers Care Designer And Patternmaker Name Role Phone Dante Audi Serafin RODRIGUEZ Primary Care Provider [phone] Reason for Referral * Consultation (Routine) - Authorized Specialty Diagnoses / Procedures Referred By Contac t Referred To Contact Diagnoses Autoimmune hepatitis (CMS/HCC) Bjorn Cano MD [address] [address] Phone: tel: fax: Referral ID Status Reason Start Date Expiration Date V isits Requested Visits Authorized [id number] Authorized 11/03/2024 05/05/2026 1 1 * Genetic Testing (Routine) - Closed Specialty Diagnoses / Procedures Referred By Contac t Referred To Contact Lab Diagnoses Autoimmune hepatitis (CMS/HCC) Procedures IgG Bjorn Cano MD [address] [address] Phone: tel: fax: Referral ID Status Reason Start Date Expiration Date Visits Re quested Visits Authorized [id number] Closed 11/03/2024 05/05/2026 1 1 Reason for Visit * Reason Comments Follow-up * Consultation (Routine) - Closed Specialty Diagnoses / Procedures Referred By Contac t Referred To Contact Diagnoses Autoimmune hepatitis (CMS/HCC) Other cirrhosis of liver (CMS/HCC) Bjorn Cano MD [address] [facility] [address] [place] [address] Phone: tel: fax: Referral ID Status Reason Start Date Expiration Date Visits Re quested Visits Authorized [id number] Closed 09/22/2024 03/24/2026 1 1 Encounter Details Date Type Department Care Team (Late st Contact Info) Description 11/03/2024 8:40 AM EDT Office Visit [facility] [address] [place] [address] Jenny Alberto MD [address] [facility] [address] [place] [address] Autoimmune hepatitis (CMS/HCC) (Primary Dx); Other cirrhosis of liver (CMS/HCC); Elevated liver enzymes; Current use of steroid medication; Hypertension, unspecified type; Nausea Social History Tobacco Use Types Packs/Day Years Used Date Smoking Tobacco: Never Passive Smoke Exposure: Never Smokeless Tobacco: Never Alcohol Use Standard Drinks/Week Comments Never 0 (1 standard drink = 0.6 oz pur e alcohol) PHQ-2 Answer Date Recorded Patient Health Questionnaire-2 Score 0 11/03/2024 PHQ-9 Answer Date Recorded Patient Health Questionnaire-9 Score 0 11/03/2024 AUDIT-C Answer Date Recorded Q1: How often do you have a drink containing alcohol? Never 11/03/2024 Q2: How many drinks containi ng alcohol do you have on a typical day when you are drinking? Patient does not drink Q3: How often do you have si x or more drinks on one occasion? Never 11/03/2024 Sex and Gender Information Value Date Recorded Sex Assigned at Not on file Legal Sex Male 7:48 PM EDT Gender Identity Not on file Sexual Orientation Not on file documented as of this encounter Last Filed Vital Signs Vital Sign Reading Time Taken Comments Blood Pressure 160/91 11/03/2024 8:41 AM EDT Pulse 81 11/03/2024 8:41 AM EDT Temperature 36.3 C (97.4 F) 11/03/2024 8:41 AM EDT Respiratory Rate 20 11/03/2024 8:41 AM EDT Oxygen Saturation 96% 11/03/2024 8:41 AM EDT RA Inhaled Oxygen Concentration - - Weight 75.7 kg (166 lb 14.2 oz) 11/03/2024 8:41 AM EDT Height 175.3 cm (5' 9 ) 11/03/2024 8:41 AM EDT Body Mass Index 24.65 11/03/2024 8:41 AM EDT documented in this encounter Functional Status * AUDIT-C Score Answer Date of Assessment Author 0 11/03/2024 8:42 AM EDT Di Kidd * Question Answer Date of Assessment Author Q1: How often do you have a drink containing alcohol? Never 11/03/2024 8:42 AM EDT Di Kidd Q2: How many drinks containing alcohol do you have on a typical day when you are drinking? Patient does not drink 11/03/2024 8:42 AM EDT Di Kidd Q3: How often do you have six or more drinks on one occasion? Never 11/03/2024 8:42 AM EDT Di Kidd * Over the past 2 weeks, how often have you been bothered by any of the following problems? Question Answer Date of Assessment Author Little interest or pleasure in doing things Not at all 11/03/2024 8:42 AM EDT Di Kidd Feeling down, depressed, or hopeless Not at all 11/03/2024 8:42 AM EDT Di Kidd Patient Health Questionnaire -2 Score 0 11/03/2024 8:42 AM EDT Di Kidd * Question Answer Date of Assessment Author Trouble falling or staying asleep, or sleeping too much Not at all 11/03/2024 8:42 AM EDT Di Kidd Feeling tired or having edyta le energy Not at all 11/03/2024 8:42 AM EDT Di Kidd Poor appetite or overeating Not at all 11/03/2024 8: 42 AM EDT Di Kidd Feeling bad about yourself - or that you are a failure or have let yourself or your family down Not at all 11/03/2024 8:42 AM EDT Di Kidd Trouble concentrating on things, such as reading the newspaper or watching television Not at all 11/03/2024 8:42 AM EDT Di Kidd Moving or speaking so slowly that other people could have noticed? Or the opposite - being so fidgety or restless that you have been moving around a lot more than usual. Not at all 11/03/2024 8:42 AM EDT Di Rios Thoughts that you would be better off or hurting yourself in some way Not at all 11/03/2024 8:42 AM EDT Gilda Kidd Patient Health Questionnaire -9 Score 0 11/03/2024 8:42 AM EDT Di Kidd documented as of this encounter Miscellaneous Notes * Assessment & Plan Note - Bjorn Cano MD - 11/03/2024 8:40 AM EDTAssociated Problem(s): Autoimmune hepatitis (CMS/HCC) Orders: Comprehensive metabolic panel; Future IgG; Future Alpha Fetoprotein, Serum; Future Follow Up GI; Future Cytomegalovirus (CMV) Quantitative PCR; Future * Progress Notes - Bjorn Cano MD - 11/03/2024 8:40 AM EDT Subjective Patient ID: Magen Patino is a 74 y.o. male. Chief Complaint Patient presents with Follow-up Magen Patino is a 74 y.o. male with a PMH of AIH, compensated cirrhosis, CAD, and HLD. Here for routine follow-up of AIH and cirrhosis. Last office visit 09/22/[address] Alberto. During last visit repeat labs were concerning for AIH flare. He was started on prednisone taper and myfortic 180 mg BID. Recently seen in the ER for SBP in the 200s. Repeat labs over the past few weeks have shown downtrending liver enzymes. Seeing new PCP and having thyroid meds adjusted BP in the 140s at home On coreg 12.5 mg daily Dropped to pred 20 mg last week. Was on 30 mg for 1 month followed by 25 mg x2 weeks Feeling okay. No other acute concerns. Took MMF for 2 weeks and stopped due to high BP. Been off it since beginning of October Had nausea with azathioprine and previously unable to tolerate Was even restarted on AZA at lower dose (25 mg) earlier this year but had quick recurrence of nausea and stopped taking it after 2 days Follows with rheum and scheduled to see them in office on Sunday. Labs from 09/22/24 visit with AST 95, ALT 115, Alk Phos 117, T bili 0.9, and IgG 1608 Most recent labs 10/22/24 with AST 41, ALT 60, Alk Phos 72, T bili 0.8, and IgG 1380 Decompensation History No prior history of decompensation Prior Testing Fibroscan: last completed 01/21/2024. CAP to 230 dB/M and LSM 19.2 kPa US Liver Screen: completed 07/14/2024 no focal lesions identified EGD: Completed 06/02/[address] Vargas at [place]. No EV. PHG with reactive gastropathy. The following portions of the chart were reviewed this encounter and updated as appropriate: Tobacco Allergies Meds Problems Med Hx Surg Hx Fam Hx Review of Systems 14-point review of systems was negative, except as per HPI. Objective Physical Exam Visit Vitals BP (!) 160/91 (BP Location: Right arm, Patient Position: Sitting) Pulse 81 Temp 36.3 ??C (97.4 ??F) (Oral) SpO2 96% Comment: RA Physical Exam: General Awake, NAD EYES EOMI, [...] and affect Assessment/Plan Magen Patino is a 74 y.o. male with a PMH of AIH, compensated cirrhosis, CAD, and HLD. Here for routine follow-up of AIH and cirrhosis. Assessment & Plan Autoimmune hepatitis (CMS/HCC) Orders: Comprehensive metabolic panel; Future IgG; Future Alpha Fetoprotein, Serum; Future Follow Up GI; Future Cytomegalovirus (CMV) Quantitative PCR; Future Other cirrhosis of liver (CMS/HCC) Orders: Follow Up GI; Future hepatitis B (Heplisav-B) 20 MCG/0.5ML vaccine 20 mcg Cytomegalovirus (CMV) Quantitative PCR; Future MELD 3.0: 7 at 09/22/2024 10:25 AM MELD-Na: 7 at 09/22/2024 10:25 AM Calculated from: Serum Creatinine: 0.93 mg/dL (Using min of 1 mg/dL) at 09/22/2024 10:25 AM Serum Sodium: 140 mmol/L (Using max of 137 mmol/L) at 09/22/2024 10:25 AM Total Bilirubin: 0.9 mg/dL (Using min of 1 mg/dL) at 09/22/2024 10:25 AM Serum Albumin: 4.2 g/dL (Using max of 3.5 g/dL) at 09/22/2024 10:25 AM INR(ratio): 1.1 at 09/22/2024 10:25 AM Age at listing (hypothetical): 73 years Sex: Male at 09/22/2024 10:25 AM Autoimmune hepatitis Compensated cirrhosis Elevated liver enzymes Elevated igG Hypertension - Cirrhosis secondary to AIH, no prior decompensation. Previously on azathioprine 25 mg daily but self-discontinued July 2024. Unable to tolerate myfotic 180 mg BID due to high blood pressure. Previously maintained on prednisone 5 mg daily - Recent AIH flare 09/2024 - Labs from 09/22/24 visit with AST 95, ALT 115, Alk Phos 117, T bili 0.9, and IgG 1608. Now downtrending after steroid initiation - Last EGD 06/02/[address] Vargas at [place]. No EV. PHG with reactive gastropathy. - Alcohol: Abstinence recommended - Health maintenance: Hep A immune. Hep B non-immune. Avoid NSAIDs. Ok for <2 g Tylenol daily. Low salt diet. Avoid raw shellfish. High protein diet. HCC screening - US liver screen without focal lesions - AFP 01/2024 WNL PLAN: - Repeat CMP, CBC, INR, and IgG - Continue prednisone taper, currently on 20 mg daily. Pending labs consider further taper of prednisone - Pending labs consider Cellcept 250 mg BID - Due for US Liver 01/2025 - Repeat AFP today - 1st dose Heplisav in office today, next dose at follow up - Increase Coreg to 12.5 mg daily to BID. Follow up with PCP RTC 3 months with same day ultrasound Bjron Cano MD Hepatology Fellow Cosigned by Jenny Alberto MD at 11/03/2024 4:34 PM EDT Associated attestation - Jenny Alberto MD - 11/03/2024 4:34 PM EDT I saw and evaluated the patient with the resident/fellow. I discussed the case with the resident/fellow and agree with the findings and plan as documented. I reviewed his labs- I just called pt- labs are up ALT 120 from 60 2 weeks ago, rishietnly on prednisone 20mg/day- I advised him to increase pred to 30mg/day, he is willing now to start myfortic 180mgbid again (while he increases his carvedilol to 12.5mg bid), since he stopped his myfortic due to high BP requiring ER visit and only taking carvedilol 12.5mg daily and I advised him to do labs in 2 weeks. add CMV PCR order to next labsH/linette? I placed the order. documented in this encounter Plan of Treatment Upcoming Encounters Date Type Department Care Team (Late st Contact Info) Description 02/09/2025 8:30 AM EST Appointment [facility] Ultrasound [address] [place] [address] 02/09/2025 10:00 AM EST Office Visit [facility] Medicine Specialties [address] [place] [address] Jenny Alberto MD [address] [place] [address] 05/06/2025 9:00 AM EST Office Visit [facility] [address] [place] [address] Myles Dyer MD [address] [place] [address] Scheduled Orders Name Type Priority Associated Diagnoses Orde r Schedule Cytomegalovirus (CMV) Quantitative PCR Lab Routine Autoimmune hepatitis (CMS/HCC) Other cirrhosis of liver (CMS/HCC) Elevated liver enzymes Expected: 11/03/2024 (Approximate), Expires: 05/07/2026 Scheduled Referrals Name Type Priority Associated Diagnoses Orde r Schedule Follow Up GI Outpatient Referral Routine Autoimmune hepatitis (CMS/HCC) Other cirrhosis of liver (CMS/HCC) Expected: 02/03/2025 (Approximate), Expires: 12/04/2025 documented as of this encounter Results * Alpha Fetoprotein, Serum (11/03/2024 10:14 AM EDT) [facility] Alpha Fetoprotein, Serum <2.3 <10.0 ng/mL 11/03/2024 12:59 PM EDT [facility] Blood Venous blood specimen / Unknown Venipuncture / Unknown 11/03/2024 10:14 AM EDT 11/03/2024 10:14 AM EDT Narrative [facility] - 11/03/2024 12:59 PM EDT Performed by Butch electrochemiluminescent immunoassay which is traceable to the 1st AFP IRP WHO Reference standard 72/255. Results obtained with different test methods or kits cannot be used interchangeably. us Bjorn Cano MD LAB BLOOD ORDERABLES Final Resul t [facility] [address] [place] [address] * IgG (11/03/2024 10:14 AM EDT) IGG 1,379 720 - 1,589 mg/dL 11/03/2024 11:31 AM EDT [facility] Blood Venous blood specimen / Unknown Venipuncture / Unknown 11/03/2024 10:14 AM EDT 11/03/2024 10:14 AM EDT us Bjorn Cano MD LAB BLOOD ORDERABLES Final Resul t [facility] [address] [place] [address] * (ABNORMAL) Comprehensive metabolic panel (11/03/2024 10:14 AM EDT) Glucose, Plasma 127(H) 74 - 99 mg/dL 11/03/2024 11:31 AM EDT [facility] BUN, Plasma 21 8 - 23 mg/dL 11/03/2024 11:31 AM EDT [facility] Creatinine, Plasma 0.92 0.70 - 1.20 mg/dL 11/03/2024 11:31 AM EDT [facility] BUN/Creatinine Ratio 23 11/03/2024 11:31 AM EDT [facility] Sodium, Plasma 141 136 - 145 mmol/L 11/03/2024 11:31 AM EDT [facility] Potassium, Plasma 4.5 3.6 - 4.9 mmol/L 11/03/2024 11:31 AM EDT [facility] Chloride, Plasma 104 97 - 107 mmol/L 11/03/2024 11:31 AM EDT [facility] CO2, Plasma 25 22 - 29 mmol/L 11/03/2024 11:31 AM EDT [facility] Anion Gap 12 6 - 16 mmol/L 11/03/2024 11:31 AM EDT [facility] Total Calcium, Plasma 9.6 8.9 - 10.2 mg/dL 11/03/2024 11:31 AM EDT [facility] Total Protein 7.2 6.3 - 7.9 g/dL 11/03/2024 11:31 AM EDT [facility] Albumin, Plasma 4.4 3.5 - 5.2 g/dL 11/03/2024 11:31 AM EDT [facility] AST, Plasma 93(H) 10 - 50 U/L 11/03/2024 11:31 AM EDT [facility] ALT, Plasma 121(H) 10 - 50 U/L 11/03/2024 11:31 AM EDT [facility] Alkaline Phosphatase, Plasma 76 40 - 115 U/L 11/03/2024 11:31 AM EDT [facility] Total Bilirubin, Plasma 0.6 0.2 - 1.1 mg/dL 11/03/2024 11:31 AM EDT [facility] eGFRcr 86.2 mL/min/1.7 3m*2 11/03/2024 11:31 AM EDT [facility] Comment:Reported eGFRcr in m L/min/1.73m2 is based the CKD-EPI 2020 equation that does not use a race coefficient. Blood Venous blood specimen / Unknown Venipuncture / Unknown 11/03/2024 10:14 AM EDT 11/03/2024 10:14 AM EDT us Bjorn Cano MD LAB BLOOD ORDERABLES Final Resul t [facility] [address] [place] [address] documented in this encounter Visit Diagnoses Diagnosis Autoimmune hepatitis (CMS/HCC)- Primary Autoimmune hepatitis Other cirrhosis of liver (CMS/HCC) Elevated liver enzymes Other nonspecific abnormal serum enzyme levels Current use of steroid medication Hypertension, unspecified type Nausea Nausea alone documented in this encounter Additional Health Concerns Assessment Noted Time PHQ-9 Depression Total Score: 0 11/04/19 8:42 AM EDT A fall risk assessment has been complete d for the patient 11/03/2024 8:42 AM EDT A Body Mass Index follow-up plan has been documented for the patient 11/03/2024 4:34 PM EDT documented as of this encounter Care Teams Designer And Patternmaker Relationship Specialty Start Date End Date Audi Howell DO [address] [place] [address] [place] [address] PCP - General 11/03/24 documented as of this encounter
--- OUTSIDE RECORDS SUMMARY | 2024-11-05 09:00 | XMS_ITS | Encounter Summary ---
Author Organization Healthcare Address [address] [place] [address] Care Team Providers Care Electrical Installation Supervisor Name Role Phone Audi Howell Primary Care Provider Reason for Visit * Reason Comments Follow-up Lupus Encounter Details Date Type Department Care Team (Latest Contact Info) Description 11/05/2024 9:00 AM EDT Office Visit [place] [facility] [address], [address] [place] [address] Myles Dyer MD [address] [place] [address] Autoimmune hepatitis (CMS/HCC) (Primary Dx); [...] relate to autoimmune disease. Follow up with oliving machine operator as scheduled. Blood work and urine test [...] D, et al. Efficacy of rituximab in gtcpsdkjd-ux-fewaqddktzauxcee hepatitis: Results from the International [employer] Hep[employer]. JHEP Rep. 2019;1(6):437-445. doi:10.1016/j.jhepr.2019.10.005). Patient will continue to follow Gastroenterology for this issue. Plan; Continue prednisone taper, Myfortic taper, and safety lab screening per gastroenterology ollow up with oliving machine operator as scheduled. #Elevated GONZALO and DsDNA, suspected [...] and documenting the encounter. Myles Dyer M.D. Reactor Operator Division of Rheumatology Department of Internal Medicine [facility] documented in this encounter Plan of Treatment Upcoming Encounters Date Type Department Care Team (Late st Contact Info) Description 02/09/2025 8:30 AM EST Appointment [facility] Ultrasound [address], [address] [place] [address] 02/09/2025 10:00 AM EST Office Visit [facility] Medicine Specialties [address], [address] [place] [address] Jenny Alberto MD [address] [facility] [address] [place] [address] 05/06/2025 9:00 AM EST Office Visit [facility] Medicine Specialties [address], [address] [place] [address] Myles Dyer MD [address] [place] [address] Scheduled Orders Name Type Priority Associated Diagnoses Orde r Schedule Anti-DNA antibody, double-stranded Lab Routine Autoimmune hepatitis ([facility]) Systemic lupus erythematosus (SLE) in adult ([facility]) 3 months for 2 Occurrences starting 11/05/2024 until 05/08/2026 C3 complement Lab Routine Systemic lupus erythematosus (SLE) in adult ([facility]) 3 months for 2 Occurrences starting 11/05/2024 until 05/08/2026 C4 complement Lab Routine Systemic lupus erythematosus (SLE) in adult ([facility]) 3 months for 2 Occurrences starting 11/05/2024 until 05/08/2026 CBC and differential Lab Routine Systemic lupus erythematosus (SLE) in adult ([facility]) 3 months for 2 Occurrences starting 11/05/2024 until 05/08/2026 Comprehensive metabolic panel Lab Routine Systemic lupus erythematosus (SLE) in adult ([facility] 3 months for 2 Occurrences starting 11/05/2024 until 05/08/2026 C-reactive protein Lab Routine Systemic lupus erythematosus (SLE) in adult ([facility]) 3 months for 2 Occurrences starting 11/05/2024 until 05/08/2026 Sedimentation Rate, Automated Lab Routine Systemic lupus erythematosus (SLE) in adult ([facility]) 3 months for 2 Occurrences starting 11/05/2024 until 05/08/2026 Urinalysis with reflex microscopic (Culture NOT Included) Lab Routine Systemic lupus erythematosus (SLE) in adult ([facility]) 3 months for 2 Occurrences starting 11/05/2024 until 05/08/2026 Protein, Random, Urine with Creatinine Lab Routine Systemic lupus erythematosus (SLE) in adult ([facility]) 3 months for 2 Occurrences starting 11/05/2024 [...] Urine <6 mg/dL 11/05/2024 11:41 AM EDT [facility] Creatinine, Urine 25 mg/dL 11/05/2024 11:41 AM EDT [facility] Protein/Creatin ine Ratio 11/05/2024 11:41 AM EDT [facility] Urine Urine specimen obtained by clean catch procedure / Unknown Non-blood Collection / Unknown 11/05/2024 10:04 AM EDT 11/05/2024 10:04 AM EDT us Myles Dyer MD LAB URINE ORDERABLES Final Res ult [facility] [address] [place] [address] * (ABNORMAL) Urinalysis with reflex microscopic (Culture NOT Included) (11/05/2024 10:04 AM EDT) Color, Urine Yellow LAB URINALYSIS - AUTOMATED METHOD 11/05/2024 11:12 AM EDT [facility] Clarity, Urine Clear LAB URINALYSIS - AUTOMATED METHOD 11/05/2024 11:12 AM EDT [facility] Spec [place], Urine 1.009 1.005 - 1.030 LAB URINALYSIS - AUTOMATED METHOD 11/05/2024 11:12 AM EDT [facility] pH, Urine 7.5 5.0 - 8.0 LAB URINALYSIS - AUTOMATED METHOD 11/05/2024 11:12 AM EDT [facility] Protein, Urine Negative Negative mg/dL LAB URINALYSIS - AUTOMATED METHOD 11/05/2024 11:12 AM EDT [facility] Glucose, Urine Negative Negative mg/dL LAB URINALYSIS - AUTOMATED METHOD 11/05/2024 11:12 AM EDT [facility] Ketones, Urine Negative Negative mg/dL LAB URINALYSIS - AUTOMATED METHOD 11/05/2024 11:12 AM EDT [facility] Blood, Urine Negative Negative LAB URINALYSIS - AUTOMATED METHOD 11/05/2024 11:12 AM EDT [facility] Bilirubin, Urine Negative Negative LAB URINALYSIS - AUTOMATED METHOD 11/05/2024 11:12 AM EDT [facility] Urobilinogen, Urine 0.2 0.2 to 1.0 mg/dL LAB URINALYSIS - AUTOMATED METHOD 11/05/2024 11:12 AM EDT [facility] Leukocytes, Urine Small(A) Negative LAB URINALYSIS - AUTOMATED METHOD 11/05/2024 11:12 AM EDT [facility] Nitrite, Urine Negative Negative LAB URINALYSIS - AUTOMATED METHOD 11/05/2024 11:12 AM EDT [facility] RBC, Urine <1 0 to 3 /HPF LAB URINALYSIS - AUTOMATED METHOD 11/05/2024 11:12 AM EDT [facility] WBC, Urine 6 - 10(A) 0 to 5 /HPF LAB URINALYSIS - AUTOMATED METHOD 11/05/2024 11:12 AM EDT [facility] Squamous Epithelial Cells 0 - 2 0 to 5 /HPF LAB URINALYSIS - AUTOMATED METHOD 11/05/2024 11:12 AM EDT [facility] Hyaline Casts 0 - 2 0 to 5 /LPF LAB URINALYSIS - AUTOMATED METHOD 11/05/2024 11:12 AM EDT [facility] Bacteria, Urine Negative Negative LAB URINALYSIS - AUTOMATED METHOD 11/05/2024 11:12 AM EDT [facility] Urine Urine specimen obtained by clean catch procedure / Unknown Non-blood Collection / Unknown 11/05/2024 10:04 AM EDT 11/05/2024 10:04 AM EDT us Myles Dyer MD LAB URINE ORDERABLES Final Res ult [facility] [address] [place] [address] documented in this encounter Visit Diagnoses Diagnosis [...] documented as of this encounter Care Teams Electrical Installation Supervisor Relationship Specialty Start Date End Date Audi Howell DO [address] [place] [address] [place] [address] PCP - General 11/03/24 documented as of this encounter
--- OUTSIDE RECORDS SUMMARY | 2024-11-17 07:19 | XMS_ITS | Encounter Summary ---
Author Organization Healthcare Address [address] [place] [place] [address] Care Team Providers Care Companion Caregiver Name Role Phone Luis Lawson MD Primary Care Provider [phone] Encounter Details Date Type Department Care Team (Late st Contact Info) Description 10/13/2024 Orders Only [facility] Medicine Specialties [address] [place] [address] Lori Levi, RN MEDICINE SPECIALTIES [...] Info) Description 02/09/2025 8:30 AM EST Appointment [facility] Ultrasound [address] [place] [address] 02/09/2025 10:00 AM EST Office Visit [facility] Medicine Specialties [address], [address] [place] [address] Jenny Alberto MD [address] [place] [address] 05/06/2025 9:00 AM EST Office Visit [place] [facility] Medicine [facility]ties [address], [address] [place] [address] Myles Dyer MD [address] [place] [address] documented as of this encounter [...] ORDERABLES Final Resul t Performing Organization Address [facility] Co de Phone Number EXTERNAL LAB * CBC and differential (10/13/2024 7:56 AM EDT) Blood Venous blood specimen / Unknown us Bjorn Cano MD LAB BLOOD ORDERABLES Final Resul t EXTERNAL LAB * Comprehensive metabolic panel (10/13/2024 7:56 AM EDT) Blood Venous blood specimen / Unknown us Bjorn Cano MD LAB BLOOD ORDERABLES Final Resul t EXTERNAL LAB documented in this encounter Visit [...] documented as of this encounter Care Teams Companion Caregiver Relationship Specialty Start Date End Date Luis Lawson MD [address] [place] [address] PCP - General 02/25/24 11/02/24 documented as of this encounter
--- OUTSIDE RECORDS SUMMARY | 2024-11-17 07:19 | XMS_ITS | Encounter Summary ---
Author Organization Healthcare Address [address] [place] [address] Care Team Providers Care Ceramic Artist Name Role Phone Field, [employer] Primary Care Provider [phone] Luis Lawson MD Primary Care Provider [phone] Audi Howell DO Primary Care Provider [phone] Encounter Details Date Type Department Care Team (Late st Contact Info) Description 01/23/2024 Lab Requisition [facility] [address] [place] [address] Jenny Alberto MD [address] [place] [address] Elevation of levels of liver transaminase levels [...] Info) Description 02/09/2025 8:30 AM EST Appointment [facility] Ultrasound [address] [place] [address] 02/09/2025 10:00 AM EST Office Visit [facility] Medicine Specialties [address] [place] [address] Jenny Alberto MD [address] [facility] [address] [place] [address] 05/06/2025 9:00 AM EST Office Visit [facility] Medicine Specialties [address], [address] [place] [address] Myles Dyer MD [address] [place] [address] documented as of this encounter Procedures Procedure Name Priority Date/Time Associated Diagnosis Comments SURGICAL PATHOLOGY CONSULT Routine 01/23/2024 1:42 PM EST Elevation of levels of liver transaminase levels documented in this encounter Results * Surgical Pathology Consult (01/23/2024 1:42 PM EST) Case Report Sugical Pathology Consult Case: [id number] Authorizing Provider: Jenny Alberto MD Collected: 01/23/2024 1342 Ordering Location: [facility] Lab Received: 01/23/2024 1342 Pathologist: Nasra Nava MD Specimen: Liver, [id number] 01/24/2024 4:41 PM EST [facility] Final Diagnosis LIVER, NEEDLE CORE BIOPSY ([id number]; 08/15/2023): - CLINICOPATHOLOGIC FINDINGS CONSISTENT WITH AUTOIMMUNE HEPATITIS WITH STAGE 4 FIBROSIS (SEE COMMENT). 01/24/2024 4:41 PM EST [facility] at 1641 EST Comment Sections [...] correlation is recommended. 01/24/2024 4:41 PM EST [facility] Clinical Information R74.01 - Elevation of levels of liver transaminase levels [ICD-10-CM] 01/24/2024 4:41 PM EST [facility] Gross Description A. [id number] Received along with a corresponding pathology report from [facility] Laboratory are 3 slides labeled outside case: [id number] collected on 08/15/2023. 01/24/2024 4:41 PM EST [facility] Note: A resident was involved in the service. I attest I examined the relevant preparations for the specimens and confirmed the diagnosis or interpretation. 01/24/2024 4:41 PM EST [facility] Tissue Liver structure / Unknown 01/23/2024 1:42 PM EST 01/23/2024 1:42 PM EST us Jenny Alebrto MD LAB PATHOLOGY ORDERABLES F inal Result [facility] [address] [place] [address] documented in this encounter Visit Diagnoses Diagnosis Elevation of levels of liver transaminase levels documented in this encounter Additional Health Concerns Assessment Noted Time PHQ-9 Depression Total Score: 0 01/21/20 10:20 AM EST A fall risk assessment has been complete d for the patient 01/21/2024 10:21 AM EST A Body Mass Index follow-up plan has been documented for the patient 01/21/2024 9:47 PM EST documented as of this encounter Care Teams Ceramic Artist Relationship Specialty Start Date End Date Vita Reid APRN [address] [place] [address] PCP - General 07/23/20 02/24/24 Luis Lawson MD [address] [place] [address] [place] [address] PCP - General 02/25/24 11/02/24 Audi Howell DO [address] [place] [address] [address] [place] [address] PCP - General 11/03/24 documented as of this encounter
--- OUTSIDE RECORDS SUMMARY | 2024-11-17 07:19 | XMS_ITS | Encounter Summary ---
Author Organization Healthcare Address [address] [place] [address] Care Team Providers Care Speech Language Pathologist Assistant Name Role Phone Luis Lawson MD Primary Care Provider [phone] Audi Howell DO Primary Care Provider [phone] Encounter Details Date Type Department Care Team (Late st Contact Info) Description 10/15/2024 Results Follow-Up [facility] Medicine Specialties [address], [address] [place] [address] Bjorn Cano MD [address] [place] [address] Social History Tobacco Use Types [...] as of this encounter Functional Status * AUDIT-C Score Answer Date of Assessment Author 0 11/03/2024 8:42 AM JAREDT Di Kidd * Question Answer Date of Assessment Author Q1: How often do you have a drink containing alcohol? Never 11/03/2024 8:42 AM JAREDT Di Kidd Q2: How many drinks containing alcohol do you have on a typical day when you are drinking? Patient does not drink 11/03/2024 8:42 AM EDT Di Kidd Q3: How often do you have six or more drinks on one occasion? Never 11/03/2024 8:42 AM JAREDT Di Kidd * Over the past 2 weeks, how often have you been bothered by any of the following problems? Question Answer Date of Assessment Author Little interest or pleasure in doing things Not at all 11/05/2024 8:55 AM JAREDT Rina Graff Feeling down, depressed, or hopeless Not at all 11/05/2024 8:55 AM JAREDT Rina Graff Patient Health Questionnaire -2 Score 0 11/05/2024 8:55 AM JAREDT Rina Graff * Question Answer Date of Assessment Author Trouble falling or staying asleep, or sleeping too much Not at all 11/03/2024 8:42 AM JAREDT Di Kidd Feeling tired or having edyta le energy Not at all 11/03/2024 8:42 AM JAREDT Di Kidd Poor appetite or overeating Not at all 11/03/2024 8: 42 AM JAREDT Di Kidd Feeling bad about yourself - or that you are a failure or have let yourself or your family down Not at all 11/03/2024 8:42 AM JAREDT Di Kidd Trouble concentrating on things, such as reading the newspaper or watching television Not at all 11/03/2024 8:42 AM JAREDT Di Kidd Moving or speaking so slowly that other people could have noticed? Or the opposite - being so fidgety or restless that you have been moving around a lot more than usual. Not at all 11/03/2024 8:42 AM JAREDDi Prescott Thoughts that you would be better off or hurting yourself in some way Not at all 11/03/2024 8:42 AM EDT Gilda Kidd Patient Health Questionnaire -9 Score 0 11/03/2024 8:42 AM EDT Di Kidd documented as of this encounter Miscellaneous Notes * Result Encounter Note - Bjorn Cano MD - 11/12/2024 3:32 PM EDT Labs reviewed and addressed last week. Awaiting repeat labs next week. Bjorn Cano MD Hepatology Fellow * Telephone Encounter - Caroline Tsang RN - 10/22/2024 3:56 PM EDT CBC uploaded to providers under media. Additional labs pending results * Result Encounter Note - Bjorn Cano [...] Info) Description 02/09/2025 8:30 AM EST Appointment [facility] Ultrasound [address] [place] [address] 02/09/2025 10:00 AM EST Office Visit [facility] Medicine Specialties [address], [address] [place] [address] Jenny Alberto MD [address] [place] [address] 05/06/2025 9:00 AM EST Office Visit [facility] Medicine Specialties [address], [address] [place] [address] Myles Dyer MD [address] [facility] [address] [place] [address] documented as of this encounter [...] documented as of this encounter Care Teams Speech Language Pathologist Assistant Relationship Specialty Start Date End Date Luis Lawson MD [address] [place] [address] [place] [address] PCP - General 02/25/24 11/02/24 Audi Howell DO [address] [place] [address] PCP - General 11/03/24 documented as of this encounter
--- OUTSIDE RECORDS SUMMARY | 2024-11-17 07:19 | XMS_ITS | Encounter Summary ---
Author Organization Healthcare Address [address] [place] [address] Care Team Providers Care Road Passenger Firer Name Role Phone Luis Lawson MD Primary Care Provider [phone] Encounter Details Date Type Department Care Team (Late st Contact Info) Description 10/24/2024 Orders Only [facility] Medicine Specialties [address], [address] [place] [address] Jenny Alberto MD [address] [facility] [address] [place] [address] Social History Tobacco Use Types [...] Info) Description 02/09/2025 8:30 AM EST Appointment [facility] Ultrasound [address], [address] [place] [address] 02/09/2025 10:00 AM EST Office Visit [facility] Medicine Specialties [address], [address] [place] [address] Jenny Alberto MD [address] [place] [phone] 05/06/2025 9:00 AM EST Office Visit [facility] Medicine Specialties [address], [address] [place] [address] Myles Dyer MD [address] [place] [phone] documented as of this encounter Procedures Procedure Name Priority Date/Time Associated Diagnosis Comments COMPLETE METABOLIC PROFILE (CMP) Routine 10/22/2024 2:07 PM EDT IGG, PLASMA Routine 10/22/2024 2:07 PM EDT documented in this encounter Results * COMPLETE METABOLIC PROFILE (CMP) (10/22/2024 2:07 PM EDT) Jenny Alberto MD LAB BLOOD ORDERABLES Final Result * IgG, Plasma (10/22/2024 2:07 PM EDT) Blood Venous blood specimen / [...] documented as of this encounter Care Teams Road Passenger Firer Relationship Specialty Start Date End Date Luis Lawson MD [address] [place] [address] [place] [id number] PCP - General 02/25/24 11/02/24 documented as of this encounter
--- OUTSIDE RECORDS SUMMARY | 2024-11-17 07:19 | XMS_ITS | Clinical Summary ---
Author Organization [facility] Address [address] [place] [address] Care Team Providers Care [employer] Business Manager Name Role Phone DanteAudi Primary Care Provider [phone] Allergies No known active allergies Medications amLODIPine [...] mg) 1 (one) time each day. Active ondansetron (Zofran) 4 MG tabletIndicatio ns:Nausea and vomiting, unspecified vomiting type,Autoimmune hepatitis (CMS/HCC) Take 1 tablet (4 mg) by mouth every 8 hours as needed for nausea or vomiting. 20 tablet 3 5 Active Additional Information Patient not taking.Reported on 11/03/2024 nutritional drink (Boost Plus) liquid liquid Drink 1 supplement up to 3 times a day or As Directed as a nutritional supplement. Flavor preference: per patient. 1 case today. Can dispense up to 4 cases at a time per patient request in the future 237 mL 11 5 Active Additional Information Patient not taking.Reported on 09/22/2024 levothyroxine (Synthroid, Levoxyl) 50 MCG tablet 5 Active mycophenolate (Myfortic) 180 MG EC tablet Take 1 tablet by mouth 2 times a day. 60 tablet 1 5 Active levothyroxine (Synthroid, Levoxyl) 75 MCG tablet 5 Active carvedilol (Coreg) 12.5 MG tablet Take 1 tablet by mouth 2 times a day with meals. 60 tablet 1 5 Active predniSONE (Deltasone) 10 MG tablet Take 3 tablets by mouth daily. Take with breakfast 90 tablet 1 5 025 Active carvedilol (Coreg) 12.5 MG tablet Take 1 tablet by mouth 2 times a day with meals. 5 025 Discontin ued(Reord er) predniSONE (Deltasone) 10 MG tablet Take 3 tablets by mouth daily. Take with breakfast 120 tablet 5 025 Discontin ued(Reord er) predniSONE (Deltasone) 10 MG tablet Take 3 tablets by mouth daily. Take with breakfast 90 tablet 1 5 025 Discontin ued(Reord er) Active Problems Problem Noted Date Diagnosed Date Anxiety 02/25/2024 Dyspnea 02/25/2024 Essential hypertension 02/25/2024 HHD (hypertensive heart disease) 02/25/2024 Chest pain 02/25/2024 CAD (coronary artery disease) 02/25/2024 Mixed hyperlipidemia 02/25/2024 Autoimmune hepatitis 02/06/2024 Assessment & Plan (11/03/2024 4:34 PM EDT): Orders: Comprehensive metabolic panel; Future IgG; Future Alpha Fetoprotein, Serum; Future Follow Up GI; Future Cytomegalovirus (CMV) Quantitative PCR; Future Assessment & Plan (09/22/2024 7:12 PM EDT): Orders: Comprehensive metabolic panel; Future CBC and differential; Future Protime-INR; Future IgG; Future Follow Up GI; Future Constipation 09/13/2022 Encounters Date Type Department Care Team Description 11/12/2024 Refill [facility] [address] [place] [address] Jenny Alberto MD 11/05/2024 9:00 AM EDT Office Visit [facility] Medicine Specialties [address] [place] [address] Myles Dyer MD Autoimmune hepatitis (CMS/HCC) (Primary Dx); High risk medication use; Systemic lupus erythematosus (SLE) in adult (CMS/HCC); Anti-cardiolipin antibody positive; At risk for osteopenia 11/05/2024 Travel 11/05/2024 Telephone [facility] Specialties [address], [address] [place] [phone] Lori Levi RN 11/03/2024 8:40 AM EDT Office Visit [facility] Specialties [address], [address] [place] [phone] Jenny Alberto MD Autoimmune hepatitis (CMS/HCC) (Primary Dx); Other cirrhosis of liver (CMS/HCC); Elevated liver enzymes; Current use of steroid medication; Hypertension, unspecified type; Nausea 11/03/2024 Travel 10/24/2024 Orders Only [facility] Medicine Specialties [address], [address] [place] [phone] Jenny Alberto MD 10/22/2024 Orders Only [facility] Medicine Specialties [address], [facility] [place] [address] Caroline Tsang RN Autoimmune hepatitis (CMS/HCC) 10/15/2024 Results Follow-Up [facility] Specialties [address], [facility] [place] [address] Bjorn Cano MD 10/13/2024 Orders Only [facility] Medicine Specialties [address], [address] [place] [phone] Lori Levi RN Autoimmune hepatitis (CMS/HCC) 09/22/2024 10:40 AM EDT Clinical Support [facility] [address], [address] [place] [phone] Autoimmune hepatitis (CMS/HCC) 09/22/2024 9:00 AM EDT Office Visit [facility] Medicine Specialties [address] [place] [address], [address] [place] [phone] Jenny Alberto MD Autoimmune hepatitis (CMS/HCC) (Primary Dx); Other cirrhosis of liver (CMS/HCC); Nausea; Elevated liver enzymes; High total IgG; History of diverticulitis 09/22/2024 Results Follow-Up [facility] Specialties [address] [place] [address], [address] [place] [phone] Bjorn Cano MD 09/22/2024 Travel 09/01/2024 Telephone [facility] Specialties [address] [place] [address], [address] [place] [phone] Caroline Tsang RN 08/29/2024 Orders Only [facility] Specialties [address] [place] [phone] Caroline Tsang RN Autoimmune hepatitis (CMS/HCC) from Last 3 Months Immunizations Immunization Administration Dates Next Due HepB-CpG 11/03/2024,04/21/2024,02/25/2024 Influenza, Unspecified 02/05/2007 Influenza, high-dose, quadrivalent 01/03/2023 [...] Mass Index 24.48 11/05/2024 8:51 AM EDT Plan of Treatment Upcoming Encounters Date Type Department Care Team (Late st Contact Info) Description 02/09/2025 8:30 AM EST Appointment [facility] Ultrasound [address] [place] [address] 02/09/2025 10:00 AM EST Office Visit [facility] Medicine Specialties [address] [place] [phone] Jenny Alberto MD [address] [facility] [address] [place] [address] 05/06/2025 9:00 AM EST Office Visit [facility] Medicine Specialties [address], [address] [place] [phone] Myles Dyer MD [address] [place] [address] Health Maintenance Due Date Last Done Comments [...] or (1 - 1-dose 75+ series) 10/11/2023 [id number] Vaccine (7 - Moderna risk season) 2024 01/03/2024, 12/28/2022, 12/28/2021, Additional history exists [facility]-Influenza Vaccine (#1) 2024 01/03/2023, [facility]-Depression Screening 11/05/2025 11/05/2024, 10/11 [facility]-Hepatitis C Screening Completed 01/21/2024 HPV Vaccines [...] Procedure Name Priority Date/Time Associated Diagnosis Comments URINALYSIS MICROSCOPIC FOR UA REFLEX Routine 11/05/2024 10:04 AM EDT Systemic lupus erythematosus (SLE) in adult (CMS/HCC) URINALYSIS WITH REFLEX MICROSCOPIC Routine 11/05/2024 10:04 AM EDT Systemic lupus erythematosus (SLE) in adult ([facility]) PROTEIN, URINE, RANDOM WITH CREATININE Routine 11/05/2024 10:04 AM EDT Systemic lupus erythematosus (SLE) in adult (CMS/HCC) PROTHROMBIN TIME(PT) / INR Routine 11/03/2024 10:14 AM EDT Autoimmune hepatitis (CMS/HCC) ALPHA FETOPROTEIN, SERUM Routine 11/03/2024 10:14 AM EDT Autoimmune hepatitis (CMS/HCC) IGG, PLASMA Routine 11/03/2024 10:14 AM EDT Autoimmune hepatitis (CMS/HCC) COMPREHENSIVE METABOLIC PANEL, PLASMA Routine 11/03/2024 10:14 AM EDT Autoimmune hepatitis (CMS/HCC) CBC WITH AUTO DIFFERENTIAL Routine 10/22/2024 3:55 PM EDT Autoimmune hepatitis (CMS/HCC) COMPLETE METABOLIC PROFILE (CMP) Routine 10/22/2024 2:07 PM EDT IGG, PLASMA Routine 10/22/2024 2:07 PM EDT IGG, PLASMA Routine 10/13/2024 7:56 AM EDT [...] 08/29/2024 3:23 PM EDT Autoimmune hepatitis (CMS/HCC) HEPATITIS C ANTIBODY W/REFLEX TO HCV QUANT PCR Routine 01/21/2024 12:22 PM EST Unspecified cirrhosis of liver (CMS/HCC) from Last 3 Months or Most Recently Relevant to Health Maintenance Results * Urinalysis Microscopic Examination (11/05/2024 10:04 AM EDT) Urine Urine specimen obtained by clean catch procedure / Unknown Non-blood Collection / Unknown 11/05/2024 10:04 AM EDT 11/05/2024 10:04 AM EDT Myles Dyer MD LAB URINE ORDERABLES Final Res ult Performing Organization Address [facility] Co de Phone Number [facility] [address] [place] [address] * Protein, Random, Urine with Creatinine (11/05/2024 10:04 AM EDT) Protein, Urine <6 mg/dL 11/05/2024 11:41 AM EDT [facility] Creatinine, Urine 25 mg/dL 11/05/2024 11:41 AM EDT [facility] Protein/Creatin ine Ratio 11/05/2024 11:41 AM EDT [facility] Urine Urine specimen obtained by clean catch procedure / Unknown Non-blood Collection / Unknown 11/05/2024 10:04 AM EDT 11/05/2024 10:04 AM EDT Myles Dyer MD LAB URINE ORDERABLES Final Res ult Performing Organization Address [facility] Co de Phone Number [facility] [address] [place] [address] * (ABNORMAL) Urinalysis with reflex microscopic (Culture NOT Included) (11/05/2024 10:04 AM EDT) Color, Urine Yellow LAB URINALYSIS - AUTOMATED METHOD 11/05/2024 11:12 AM EDT [facility] Clarity, Urine Clear LAB URINALYSIS - AUTOMATED METHOD 11/05/2024 11:12 AM EDT [facility] Spec [place], Urine 1.009 1.005 - 1.030 LAB URINALYSIS - AUTOMATED METHOD 11/05/2024 11:12 AM EDT [facility] pH, Urine 7.5 5.0 - 8.0 LAB URINALYSIS - AUTOMATED METHOD 11/05/2024 11:12 AM EDT [facility] Protein, Urine Negative Negative mg/dL LAB URINALYSIS - AUTOMATED METHOD 11/05/2024 11:12 AM EDT [facility] Glucose, Urine Negative Negative mg/dL LAB URINALYSIS - AUTOMATED METHOD 11/05/2024 11:12 AM T [facility] Ketones, Urine Negative Negative mg/dL LAB URINALYSIS - AUTOMATED METHOD 11/05/2024 11:12 AM T [facility] Blood, Urine Negative Negative LAB URINALYSIS - AUTOMATED METHOD 11/05/2024 11:12 AM T [facility] Bilirubin, Urine Negative Negative LAB URINALYSIS - AUTOMATED METHOD 11/05/2024 11:12 AM T [facility] Urobilinogen, Urine 0.2 0.2 to 1.0 mg/dL LAB URINALYSIS - AUTOMATED METHOD 11/05/2024 11:12 AM [facility] Leukocytes, Urine Small(A) Negative LAB URINALYSIS - AUTOMATED METHOD 11/05/2024 11:12 AM T [facility] Nitrite, Urine Negative Negative LAB URINALYSIS - AUTOMATED METHOD 11/05/2024 11:12 AM T [facility] RBC, Urine <1 0 to 3 /HPF LAB URINALYSIS - AUTOMATED METHOD 11/05/2024 11:12 AM T [facility] WBC, Urine 6 - 10(A) 0 to 5 /HPF LAB URINALYSIS - AUTOMATED METHOD 11/05/2024 11:12 AM [facility] Squamous Epithelial Cells 0 - 2 0 to 5 /HPF LAB URINALYSIS - AUTOMATED METHOD 11/05/2024 11:12 AM T [facility] Hyaline Casts 0 - 2 0 to 5 /LPF LAB URINALYSIS - AUTOMATED METHOD 11/05/2024 11:12 AM T [facility] Bacteria, Urine Negative Negative LAB URINALYSIS - AUTOMATED METHOD 11/05/2024 11:12 AM EDT [facility] Urine Urine specimen obtained by clean catch procedure / Unknown Non-blood Collection / Unknown 11/05/2024 10:04 AM EDT 11/05/2024 10:04 AM EDT us Myles Dyer MD LAB URINE ORDERABLES Final Res ult Performing Organization Address [facility] de Phone Number [facility] [address] [place] [address] * Alpha Fetoprotein, Serum (11/03/2024 10:14 AM EDT) Alpha Fetoprotein, Serum <2.3 <10.0 ng/mL 11/03/2024 12:59 PM EDT [facility] Blood Venous blood specimen / Unknown Venipuncture / Unknown 11/03/2024 10:14 AM EDT 11/03/2024 10:14 AM EDT Narrative [facility] - 11/03/2024 12:59 PM EDT Performed by Butch electrochemiluminescent immunoassay which is traceable to the 1st AFP IRP WHO Reference standard 72/255. Results obtained with different test methods or kits cannot be used interchangeably. us Bjorn Cano MD LAB BLOOD ORDERABLES Final Resul t Performing Organization Address [facility] de Phone Number [facility] [address] [place] [address] * Protime-INR (11/03/2024 10:14 AM EDT) Only the most recent of2 resultswithin the time period is included. Prothrombin Time 13.7 12.0 - 14.3 sec LAB COAGULATION METHOD 11/03/2024 11:54 AM EDT [facility] INR 1.0 0.9 - 1.1 LAB COAGULATION METHOD 11/03/2024 11:54 AM EDT [facility] Blood Venous blood specimen / Unknown Venipuncture / Unknown 11/03/2024 10:14 AM EDT 11/03/2024 10:14 AM EDT Narrative [facility] - 11/03/2024 11:54 AM EDT OPTIMAL INR RANGES FOR PATIENT ON ORAL ANTICOAGULANT THERAPY Prevention of venous thromboembolism INR 2.0 to 3.0 In patients with heart disease: Atrial fibrillation INR 2.0 to 3.0 Valvular heart disease INR 2.0 to 3.0 Tissue heart valves INR 2.0 to 3.0 Mechanical prosthetic valves INR 2.5 to 3.5 Prevention of recurrent SC INR 2.5 to 3.5 us Bjorn Cano MD LAB BLOOD ORDERABLES Final Resul t Performing Organization Address [facility] Co de Phone Number [facility] [address] [place] [address] * IgG (11/03/2024 10:14 AM EDT) Only the most recent of4 resultswithin the time period is included. IGG 1,379 720 - 1,589 mg/dL 11/03/2024 11:31 AM EDT [facility] Blood Venous blood specimen / Unknown Venipuncture / Unknown 11/03/2024 10:14 AM EDT 11/03/2024 10:14 AM EDT us Bjorn Cano MD LAB BLOOD ORDERABLES Final Resul t Performing Organization Address [facility] Co de Phone Number [facility] [address] [place] [address] * (ABNORMAL) Comprehensive metabolic panel (11/03/2024 10:14 AM EDT) Only the most recent of4 resultswithin the time period is included. Glucose, Plasma 127(H) 74 - 99 mg/dL 11/03/2024 11:31 AM EDT [facility] BUN, Plasma 21 8 - 23 mg/dL 11/03/2024 11:31 AM EDT [facility] Creatinine, Plasma 0.92 0.70 - 1.20 mg/dL 11/03/2024 11:31 AM EDT [facility] BUN/Creatinine Ratio 23 11/03/2024 11:31 AM EDT [facility] Sodium, Plasma 141 136 - 145 mmol/L 11/03/2024 11:31 AM EDT [facility] Potassium, Plasma 4.5 3.6 - 4.9 mmol/L 11/03/2024 11:31 AM EDT [facility] Chloride, Plasma 104 97 - 107 mmol/L 11/03/2024 11:31 AM EDT [facility] CO2, Plasma 25 22 - 29 mmol/L 11/03/2024 11:31 AM EDT [facility] Anion Gap 12 6 - 16 mmol/L 11/03/2024 11:31 AM EDT [facility] Total Calcium, Plasma 9.6 8.9 - 10.2 mg/dL 11/03/2024 11:31 AM EDT [facility] Total Protein 7.2 6.3 - 7.9 g/dL 11/03/2024 11:31 AM EDT [facility] Albumin, Plasma 4.4 3.5 - 5.2 g/dL 11/03/2024 11:31 AM EDT [facility] AST, Plasma 93(H) 10 - 50 U/L 11/03/2024 11:31 AM EDT [facility] ALT, Plasma 121(H) 10 - 50 U/L 11/03/2024 11:31 AM EDT [facility] Alkaline Phosphatase, Plasma 76 40 - 115 U/L 11/03/2024 11:31 AM EDT [facility] Total Bilirubin, Plasma 0.6 0.2 - 1.1 mg/dL 11/03/2024 11:31 AM EDT [facility] eGFRcr 86.2 mL/min/1.7 3m*2 11/03/2024 11:31 AM EDT [facility] Comment:Reported eGFRcr in m L/min/1.73m2 is based the CKD-EPI 2020 equation that does not use a race coefficient. Blood Venous blood specimen / Unknown Venipuncture / Unknown 11/03/2024 10:14 AM EDT 11/03/2024 10:14 AM EDT us Bjorn Cano MD LAB BLOOD ORDERABLES Final Resul t [facility] [address] [place] [address] * CBC and Differential (10/22/2024 3:55 PM EDT) Only the most recent of3 resultswithin the time period is included. Blood Venous blood specimen / Unknown us Jenny Alberto MD LAB BLOOD ORDERABLES Final Result Performing Organization Address [facility] Co de Phone Number EXTERNAL LAB * COMPLETE METABOLIC PROFILE (CMP) (10/22/2024 2:07 PM EDT) Jenny Alberto MD LAB BLOOD ORDERABLES Final Result * Hepatitis C antibody (01/21/2024 12:22 PM EST) Hepatitis C Antibody Negative Negative 01/21/2024 3:15 PM EST [facility] Blood Venous blood specimen / Unknown Venipuncture / Unknown 01/21/2024 12:22 PM EST 01/21/2024 12:23 PM EST Jenny Alberto MD LAB BLOOD ORDERABLES Final Result Performing Organization Address [facility] de Phone Number [facility] [address] [place] [address] from Last 3 Months or Most Recently Relevant to Health Maintenance Insurance [facility] MEDICARE Care Teams [employer] Business Manager Relationship Specialty Start Date End Date Audi Howell DO [address] [place] [id number] PCP - General 11/03/24
--- OUTSIDE RECORDS SUMMARY | 2024-11-17 07:19 | XMS_ITS | Encounter Summary ---
Author Organization Healthcare Address [address] [place] [address] Care Team Providers Care Welder Oxyhydrogen Name Role Phone Luis Lawson MD Primary Care Provider [phone] Encounter Details Date Type Department Care Team (Late st Contact Info) Description 10/22/2024 Orders Only [facility] Medicine Specialties [address], [address] [place] [address] Caroline Tsang, RN Autoimmune hepatitis (CMS/HCC) Social History Tobacco [...] Info) Description 02/09/2025 8:30 AM EST Appointment [facility] Ultrasound [address], [address] [place] [address] 02/09/2025 10:00 AM EST Office Visit [facility] Medicine Specialties [address], [address] [place] [address] Jenny Alberto MD [address] [place] [address] 05/06/2025 9:00 AM EST Office Visit [facility]ties [address], [address] [place] [address] Myles Dyer MD [address] [place] [address] documented as of this encounter Procedures Procedure Name Priority Date/Time Associated Diagnosis Comments CBC WITH AUTO DIFFERENTIAL Routine 10/22/2024 3:55 PM EDT Autoimmune hepatitis (CMS/HCC) documented in this encounter Results * CBC and Differential [...] documented as of this encounter Care Teams Welder Oxyhydrogen Relationship Specialty Start Date End Date Luis Lawson MD [address] [place] [address] PCP - General 02/25/24 11/02/24 documented as of this encounter
--- OUTSIDE RECORDS SUMMARY | 2024-11-17 07:19 | XMS_ITS | Encounter Summary ---
Author Organization Healthcare Address [address] [place] [address] Care Team Providers Care Health Director Name Role Phone Audi Howell Primary Care Provider [phone] Encounter Details Date Type Department Care Team (Latest Contact Info) Description 11/03/2024 Travel Social History Tobacco Use Types Packs/Day [...] things Not at all 11/03/2024 8:42 AM JAREDT Di Kidd Feeling down, depressed, or hopeless [...] television Not at all 11/03/2024 8:42 AM JRAEDT Di Kidd Moving or speaking so slowly that other people could have noticed? Or the opposite - being so fidgety or restless that you have been moving around a lot more than usual. Not at all 11/03/2024 8:42 AM JAREDT Di Rios Thoughts that you would be better off or hurting yourself in some way Not at all 11/03/2024 8:42 AM JAREDT Gilda Kidd Patient Health Questionnaire -9 Score 0 11/03/2024 8:42 AM Di Elena documented as of this encounter Plan of Treatment Upcoming Encounters Date Type Department Care Team (Late st Contact Info) Description 02/09/2025 8:30 AM EST Appointment [facility] Ultrasound [address], [address] [place] [address] 02/09/2025 10:00 AM EST Office Visit [facility] Medicine Specialties [address], [address] [place] [address] Jenny Alberto MD [address] [place] [address] 05/06/2025 9:00 AM EST Office Visit [facility] Medicine Specialties [address], [address] [place] [address] Myles Dyer MD [address] [place] [address] documented as of this encounter [...] documented as of this encounter Care Teams Health Director Relationship Specialty Start Date End Date Audi Howell DO [address] [place] [address] PCP - General 11/03/24 documented as of this encounter
--- OUTSIDE RECORDS SUMMARY | 2024-11-17 07:20 | XMS_ITS | Encounter Summary ---
Author Organization [facility] Address [address] [place] [address] Care Team Providers Care Paying Teller Name Role Phone Luis Lawson MD Primary Care Provider [phone] Encounter Details Date Type Department Care Team [...] 02/09/2025 8:30 AM EST Appointment [facility] Ultrasound [address], [address]nd [place] [address] 02/09/2025 10:00 AM EST Office Visit [facility] Medicine Specialties [address], [address]nd [place] [address] Jenny Alberto MD [address] [place] [address] 05/06/2025 9:00 AM EST Office Visit [facility] Medicine Specialties [address], [address] [place] [address] Myles Dyer MD [address] [place] [address] documented as of this encounter [...] documented as of this encounter Care Teams Paying Teller Relationship Specialty Start Date End Date Luis Lawson MD [address] [place] [address] PCP - General 02/25/24 11/02/24 documented as of this encounter
--- OUTSIDE RECORDS SUMMARY | 2024-11-17 07:20 | XMS_ITS | Encounter Summary ---
Author Organization Healthcare Address [address] [place] [address] Care Team Providers Care Scene Shifter Name Role Phone Audi Howell Primary Care Provider [phone] Encounter Details Date Type Department Care Team (Late st Contact Info) Description 11/05/2024 Telephone [facility] Medicine Specialties [address], [address] [place] [address] Lori Levi, RN MEDICINE SPECIALTIES CLINIC Social [...] Telephone Encounter - Lori Levi RN - 11/07/2024 11:04 AM EDT S/W patient He will get CMV and standing lab orders completed at [facility] on 11/17/24 He does not need a reminder call F/U results * Telephone Encounter - Lori Levi RN - 11/05/2024 10:39 AM EDT Attempted to reach patient to see when he will complete CMV lab No answer, No VM * Telephone Encounter - Lori Levi RN - 11/05/2024 6:[address] Alberto secure chat I just called pt- labs are up ALT 120 from 60 2 weeks ago, curretnly on prednisone 20mg/day- I advised him to increase pred to 30mg/day, he is willing now to start myfortic 180mg bid again (while he increases his carvedilol to 12.5mg bid) and I advised him to do labs in 2 weeks. Lori, can you pls send a CMV PCR order to [facility]? I placed the order. documented in this encounter Plan of Treatment Upcoming Encounters Date Type Department Care Team (Late st Contact Info) Description 02/09/2025 8:30 AM EST Appointment [facility] Ultrasound [address], [address]nd [place] [address] 02/09/2025 10:00 AM EST Office Visit [facility] Medicine Specialties [address], [address] [place] [address] Jenny Alberto MD [address] [place] [address] 05/06/2025 9:00 AM EST Office Visit [facility] Medicine Specialties [address], [address] [place] [address] Myles Dyer MD [address] [place] [address] documented as of this encounter [...] documented as of this encounter Care Teams Scene Shifter Relationship Specialty Start Date End Date Audi Howell DO [address] [place] [address] PCP - General 11/03/24 documented as of this encounter
--- OUTSIDE RECORDS SUMMARY | 2024-11-17 07:20 | XMS_ITS | Encounter Summary ---
Author Organization Healthcare Address [address] [place] [place] [address] Care Team Providers Care Blast Furnace Operator Name Role Phone Luis Lawson MD Primary Care Provider [phone] Encounter Details Date Type Department Care Team (Late st Contact Info) Description 09/01/2024 Telephone [place] [facility] Medicine Specialties [address], [address] [place] [address] Caroline Tsang, RN Social History Tobacco Use [...] Telephone Encounter - Lori Levi RN - 10/27/2024 12:19 PM EDT S/W patient -gave him Dr. Alberto's message -verified appt date/time -verbalized understanding, no questions or concerns * Telephone Encounter - Lori Levi RN - 10/24/2024 4:26 PM EDT Attempted to reach patient, no answer, no VM * Telephone Encounter - Lori Levi RN - 10/23/2024 2:57 PM EDT Patient completed labs 10/22/24 * Telephone Encounter - Lori Levi RN - 10/15/2024 3:04 PM EDT Call pt remind him to get labs around 10/24/24 [facility] notes * Telephone Encounter - [...] concerns Suman Ansari MD Rose, Duana M, JAMES; Jenny Alberto MD Attempted to call patient but could not get through. Liver enzymes showing meld improvement. Recommend continuing Myfortic as is decrease prednisone to 25 mg per day. Repeat labs in 10 days. Suman Ansari MD * Telephone Encounter - Lori Levi RN - 10/13/2024 7:57 AM EDT Uploaded IgG CMP CBC [facility], no PT/INR drawn Requested AFP results * [...] RN Sent: 08/29/2024 3:24 PM EDT To: Jenyn Alberto MD Subject: Import Imported by Caroline Tsang RN on 08/29/2024 at 3:24 PM to the following: Comprehensive Metabolic Panel, Plasma [[id number]] on 08/29/2024 documented in this encounter Plan of Treatment Upcoming Encounters Date Type Department Care Team (Late st Contact Info) Description 02/09/2025 8:30 AM EST Appointment [facility] Ultrasound [address], [address]nd [place] [address] 02/09/2025 10:00 AM EST Office Visit [facility] Medicine Specialties [address], [address]nd [place] [address] Jenny Alberto MD [address] [place] [address] 05/06/2025 9:00 AM EST Office Visit [place] [facility] Medicine Specialties [address], [address] [place] [address] Myles Dyer MD [address] [place] [address] documented as of this encounter [...] documented as of this encounter Care Teams Blast Furnace Operator Relationship Specialty Start Date End Date Luis Lawson MD [address] [place] [address] PCP - General 02/25/24 11/02/24 documented as of this encounter
--- OUTSIDE RECORDS SUMMARY | 2024-11-17 07:20 | XMS_ITS | Encounter Summary ---
Author Organization Healthcare Address [address] [place] [address] Care Team Providers Care Highway Inspector Name Role Phone DanteAudi Serafin DO Primary Care Provider [phone] Reason for Visit * Reason Onset Date Comments Med Refill 11/12/2024 Encounter Details Date Type Department Care Team (Late st Contact Info) Description 11/12/2024 Refill [facility] [address] [place] [address] Jenny Alberto MD [address] [place] [address] Social History Tobacco Use Types Packs/Day Years [...] encounter Miscellaneous Notes * Addendum Note - Bjorn Cano MD - 11/12/2024 3:36 PM EDTAddended by: BJORN CANO on: 11/12/2024 03:36 PM Modules accepted: Orders * Telephone Encounter - Bjorn Cano MD - 11/12/2024 3:34 PM EDT With rise in LFTs plan was to increase prednisone 20 mg to 30 mg daily and restart Myfortic 180 mg BID. Will resend prednisone refill. Bjorn Cano MD Hepatology Fellow * Telephone Encounter - Audi Cody PharmD - 11/12/2024 10:31 AM EDT Refill request does not meet protocol. Sending to clinic for review. * Telephone Encounter - Rusty Gonzales PharmD - 11/12/2024 9:57 AM EDT Routing refill request to appropriate in-basket for review. documented in this encounter Plan of Treatment Upcoming Encounters Date Type Department Care Team (Late st Contact Info) Description 02/09/2025 8:30 AM EST Appointment [facility] Ultrasound [address], [address]nd [place] [address] 02/09/2025 10:00 AM EST Office Visit [facility] Medicine Specialties [address], [address]nd [place] [address] Jenny Alberto MD [address] [place] [address] 05/06/2025 9:00 AM EST Office Visit [facility] Medicine Specialties [address], [address] [place] [address] Myles Dyer MD [address] [place] [address] documented as of this encounter [...] documented as of this encounter Care Teams Highway Inspector Relationship Specialty Start Date End Date Audi Howell DO [address] [place] [address] PCP - General 11/03/24 documented as of this encounter
--- OUTSIDE RECORDS SUMMARY | 2024-11-17 07:20 | XMS_ITS | Encounter Summary ---
Author Organization Healthcare Address [address] [place] [address] Care Team Providers Care Rn Internal Medicine Name Role Phone Luis Lawson MD Primary Care Provider [phone] Audi Howell DO Primary Care Provider [phone] Reason for Referral * Genetic Testing (Routine) - Authorized Specialty Diagnoses / Procedures Referred By Contac t Referred To Contact Diagnoses Autoimmune hepatitis (CMS/HCC) Procedures IgG IgG Bjorn Cano MD [address] [address] Phone: tel: fax: Referral ID Status Reason Start Date Expiration Date V isits Requested Visits Authorized [id number] Authorized 09/22/2024 03/24/2026 1 1 Encounter Details Date Type Department Care Team (Late st Contact Info) Description 09/22/2024 Results [facility] Medicine Specialties [address], [address] [place] [address] Bjorn Cano MD [address] [facility] [address] [place] [address] Social History Tobacco Use Types [...] Info) Description 02/09/2025 8:30 AM EST Appointment [facility] Ultrasound [address], [address]nd [place] [address] 02/09/2025 10:00 AM EST Office Visit [facility] Medicine Specialties [address], [address]nd [place] [address] Jenny Alberto MD [address] [place] [address] 05/06/2025 9:00 AM EST Office Visit [facility] Medicine Specialties [address], [address] [place] [address] Myles Dyer MD [address] [place] [address] documented as of this encounter Results * Protime-INR (11/03/2024 10:14 AM EDT) Prothrombin Time 13.7 12.0 - 14.3 sec LAB COAGULATION METHOD 11/03/2024 11:54 AM EDT [facility] INR 1.0 0.9 - 1.1 LAB COAGULATION METHOD 11/03/2024 11:54 AM EDT [facility] Blood Venous blood specimen / Unknown Venipuncture / Unknown 11/03/2024 10:14 AM EDT 11/03/2024 10:14 AM EDT Narrative [facility] - 11/03/2024 11:54 AM EDT OPTIMAL INR RANGES FOR PATIENT ON ORAL ANTICOAGULANT THERAPY Prevention of venous thromboembolism INR 2.0 to 3.0 In patients with heart disease: Atrial fibrillation INR 2.0 to 3.0 Valvular heart disease INR 2.0 to 3.0 Tissue heart valves INR 2.0 to 3.0 Mechanical prosthetic valves INR 2.5 to 3.5 Prevention of recurrent RI INR 2.5 to 3.5 us Bjorn Cano MD LAB BLOOD ORDERABLES Final Resul t Performing Organization Address [facility] Co de Phone Number [facility] [address] [place] [address] * Comprehensive metabolic panel (10/13/2024 7:56 AM EDT) Blood Venous blood specimen / Unknown us Bjorn Cano MD LAB BLOOD ORDERABLES Final Resul t Performing Organization Address [facility]/ZIP Co de Phone Number EXTERNAL LAB * CBC and differential (10/13/2024 7:56 AM EDT) Blood Venous blood specimen / Unknown us Bjorn Cano MD LAB BLOOD ORDERABLES Final Resul t Performing Organization Address City/[facility]/ZIP Co de Phone Number EXTERNAL LAB * IgG (10/13/2024 7:56 AM [...] documented as of this encounter Care Teams Rn Internal Medicine Relationship Specialty Start Date End Date Luis Lawson MD [address] [place] [address] [address] [place] [address] PCP - General 02/25/24 11/02/24 Audi Howell DO [address] [place] [address] PCP - General 11/03/24 documented as of this encounter
--- OUTSIDE RECORDS SUMMARY | 2024-11-17 07:20 | XMS_ITS | Encounter Summary ---
Author Organization Healthcare Address [address] [place] [address] Care Team Providers Care Clinical Cytogenetics Director Name Role Phone Audi Howell Primary Care Provider [phone] Encounter Details Date Type Department Care Team (Latest Contact Info) Description 11/05/2024 Travel Social History Tobacco Use Types Packs/Day [...] Rina Graff documented as of this encounter Plan of Treatment Upcoming Encounters Date Type Department Care Team (Late st Contact Info) Description 02/09/2025 8:30 AM EST Appointment [facility] Ultrasound [address], [address]nd [place] [address] 02/09/2025 10:00 AM EST Office Visit [facility] Medicine Specialties [address], [address] [place] [address] Jenny Alberto MD [address] [place] [address] 05/06/2025 9:00 AM EST Office Visit [facility] Medicine Specialties [address], [address] [place] [address] Myles Dyer MD [address] [place] [address] documented as of this encounter [...] documented as of this encounter Care Teams Clinical Cytogenetics Director Relationship Specialty Start Date End Date Audi Howell, [address] [place] [address] PCP - General 11/03/24 documented as of this encounter
[2024-11-17 07:39] LABS: Hematocrit 42.3 % (42.0-52.0); Hemoglobin 14.4 g/dL (14.1-18.0); Immature Granulocytes % 0.4 %; Mean Corpuscular HGB Conc 34.0 g/dL (31.8-35.4); Mean Corpuscular Hemoglobin 32.2 pg (27.0-31.2); Mean Corpuscular Volume 94.6 fl (80-94); Nucleated Red Blood Cells % 0 %; Platelet Count 120 K/mm3 (142-424); Red Blood Count 4.47 M/mm3 (4.60-6.20); Red Cell Distribution Width-SD 51.1 fL; White Blood Count 5.5 K/mm3 (4.8-10.8)
[2024-11-17 07:59] LABS: Alanine Aminotransferase 61 U/L (12-78); Albumin Level 3.9 g/dl (3.5-5.0); Albumin/Globulin Ratio 1.3 (1.1-1.8); Alkaline Phosphatase 53 U/L (38-126); Anion Gap 9.2 mEq/L (5-15); Aspartate Amino Transferase 44 U/L (17-59); Bilirubin,Total 0.9 mg/dl (0.2-1.3); Blood Urea Nitrogen 22 mg/dl (9-20); Calcium 9.4 mg/dl (8.4-10.2); Carbon Dioxide 32 mmol/L (22.0-30.0); Chloride 103 mmol/L (98-107); Creatinine,Serum 1.00 mg/dl (0.66-1.25); Estimated Glomerular Filt Rate 73 ml/min (>60); GFR (African American) 88 ML/MIN (>60); Globulin 2.9 g/dL (1.3-3.2); Glucose 98 mg/dl (74-100); Potassium 4.2 mmoL/L (3.5-5.1); Sodium 140 mmol/L (136-145); Total Protein,Serum 6.8 g/dl (6.3-8.2)
[2024-11-18 11:16] LABS: Immunoglobulin G, Qn 1109 mg/dL (603-1613)
== END 2024-11-17 23:59 | disposition home or self-care (01) ==
LOC: LAB 07:18
PROVIDERS: PCP Internal Medicine; Visit Provider Internal Medicine Gastroenterology
DX: K74.5 Biliary cirrhosis, unspecified (principal)
CPT/HCPCS: 36415; 80053; 82784; 85025

== ENCOUNTER 2024-11-25 07:10 | Outpatient (CLI) | payer MEDICARE, SELFPAY ==
--- OUTSIDE RECORDS SUMMARY | 2024-07-14 09:00 | XMS_ITS | Encounter Summary ---
Author Organization [facility] Address [address] [id number] Care Team Providers Care Public Health Name Role Phone Luis Lawson MD Primary Care Provider [phone] Reason for Referral * Genetic Testing (Routine) - Authorized Specialty Diagnoses / Procedures Referred By Contac t Referred To Contact Lab Diagnoses Autoimmune hepatitis (CMS/HCC) Procedures IgG, Plasma Jenny Alberto MD [address] [address] Phone: tel: fax: Referral ID Status Reason Start Date Expiration Date V isits Requested Visits Authorized [id number] Authorized 07/14/2024 01/13/2026 1 1 * Consultation (Routine) - Closed Specialty Diagnoses / Procedures Referred By Contac t Referred To Contact Diagnoses Autoimmune hepatitis (CMS/HCC) Nausea Jenny Alberto MD [address] [address] Phone: tel: fax: Referral ID Status Reason Start Date Expiration Date Visits Re quested Visits Authorized [id number] Closed 07/14/2024 01/13/2026 1 1 * Genetic Testing (Routine) - Closed Specialty Diagnoses / Procedures Referred By Contac t Referred To Contact Lab Diagnoses Autoimmune hepatitis (CMS/HCC) Procedures IgG, Plasma Jenny Alberto MD [address] [facility] [address] [place] [address] Phone: tel: fax: Referral ID Status Reason Start Date Expiration Date Visits Re quested Visits Authorized [id number] Closed 07/14/2024 01/13/2026 1 1 Reason for Visit * Reason Comments Nausea and vomiting, unspecified vomitin g type Autoimmune hepatitis (CMS/HCC) Encounter Details Date Type Department Care Team (Late st Contact Info) Description 07/14/2024 9:00 AM EDT Office Visit [place] [facility] Medicine Specialties [address] [place] [address] Jenny Alberto MD [address] [facility] [address] [place] [address] Autoimmune hepatitis (CMS/HCC) (Primary Dx); Nausea; Other specified hypothyroidism; 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 He has been off azathioprine for 2 weeks EGD- I reviewed report of EGD done by Dr. 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 Cabezas [...] Info) Description 02/09/2025 8:30 AM EST Appointment [facility] Ultrasound [address] [place] [address] 02/09/2025 10:00 AM EST Office Visit [facility] Medicine Specialties [address] [place] [address] Jenny Alberto MD [address] [place] [address] 05/06/2025 9:00 AM EST Office Visit [facility] Medicine Specialties [address] [place] [address] Myles Dyer MD [address] [place] [address] Scheduled Orders Name Type Priority [...] BLOOD ORDERABLES Final Result Performing Organization Address City/[facility]/ZIP Co de Phone Number EXTERNAL LAB * Comprehensive Metabolic Panel, Plasma (08/29/2024 3:23 PM EDT) Blood Venous blood specimen / Unknown Jenny Alberto MD LAB BLOOD ORDERABLES Final Result EXTERNAL LAB * TSH Reflex FT4 (07/14/2024 10:01 AM EDT) Thyroid Stimulating Hormone, Plasma 2.24 0.40 - 4.20 uIU/mL 07/14/2024 11:20 AM EDT [facility] Blood Venous blood specimen / Unknown Venipuncture / Unknown 07/14/2024 10:01 AM EDT 07/14/2024 10:01 AM EDT Jenny Alberto MD LAB BLOOD ORDERABLES Final Result [facility] [address] [place] [address] * IgG, Plasma (07/14/2024 10:01 AM EDT) IGG 1,222 720 - 1,589 mg/dL 07/14/2024 11:20 AM EDT [facility] Blood Venous blood specimen / Unknown Venipuncture / Unknown 07/14/2024 10:01 AM EDT 07/14/2024 10:01 AM EDT Jenny Alberto MD LAB BLOOD ORDERABLES Final Result Performing Organization Address [facility]/ZIP Co de Phone Number [facility] [address] [place] [address] * (ABNORMAL) Comprehensive metabolic panel (07/14/2024 10:01 AM EDT) Glucose, Plasma 102(H) 74 - 99 mg/dL 07/14/2024 11:20 AM EDT [facility] BUN, Plasma 16 8 - 23 mg/dL 07/14/2024 11:20 AM EDT [facility] Creatinine, Plasma 0.81 0.70 - 1.20 mg/dL 07/14/2024 11:20 AM EDT [facility] BUN/Creatinine Ratio 20 07/14/2024 11:20 AM EDT [facility] Sodium, Plasma 142 136 - 145 mmol/L 07/14/2024 11:20 AM EDT [facility] Potassium, Plasma 4.0 3.6 - 4.9 mmol/L 07/14/2024 11:20 AM EDT [facility] Chloride, Plasma 106 97 - 107 mmol/L 07/14/2024 11:20 AM EDT [facility] CO2, Plasma 25 22 - 29 mmol/L 07/14/2024 11:20 AM EDT [facility] Anion Gap 11 6 - 16 mmol/L 07/14/2024 11:20 AM EDT [facility] Total Calcium, Plasma 9.6 8.9 - 10.2 mg/dL 07/14/2024 11:20 AM EDT [facility] Total Protein 7.1 6.3 - 7.9 g/dL 07/14/2024 11:20 AM EDT [facility] Albumin, Plasma 4.1 3.5 - 5.2 g/dL 07/14/2024 11:20 AM EDT [facility] AST, Plasma 30 10 - 50 U/L 07/14/2024 11:20 AM EDT [facility] ALT, Plasma 36 10 - 50 U/L 07/14/2024 11:20 AM EDT [facility] Alkaline Phosphatase, Plasma 79 40 - 115 U/L 07/14/2024 11:20 AM EDT [facility] Total Bilirubin, Plasma 0.6 0.2 - 1.1 mg/dL 07/14/2024 11:20 AM EDT [facility] eGFRcr 91.9 mL/min/1.7 3m*2 07/14/2024 11:20 AM EDT [facility] Comment:Reported eGFRcr in m L/min/1.73m2 is based the CKD-EPI 2020 equation that does not use a race coefficient. 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
--- OUTSIDE RECORDS SUMMARY | 2024-11-03 08:40 | XMS_ITS | Encounter Summary ---
Author Organization [facility] Address [address] [place] [address] Care Team Providers Care Live Truck Operator Name Role Phone Dante Audi Serafin RODRIGUEZ Primary Care Provider [phone] Reason for Referral * Consultation (Routine) - Authorized Specialty Diagnoses / Procedures Referred By Contac t Referred To Contact Diagnoses Autoimmune hepatitis (CMS/HCC) Bjorn Cano MD [address] [address] Phone: tel: fax: Referral ID Status Reason Start Date Expiration Date V isits Requested Visits Authorized [id number] Authorized 11/03/2024 05/05/2026 1 1 * Genetic Testing (Routine) - Closed Specialty Diagnoses / Procedures Referred By Contac t Referred To Contact Lab Diagnoses Autoimmune hepatitis (CMS/HCC) Procedures IgG Bjorn Cano MD [address] [address] Phone: tel: fax: Referral ID Status Reason Start Date Expiration Date Visits Re quested Visits Authorized [id number] Closed 11/03/2024 05/05/2026 1 1 Reason for Visit * Reason Comments Follow-up * Consultation (Routine) - Closed Specialty Diagnoses / Procedures Referred By Contac t Referred To Contact Diagnoses Autoimmune hepatitis (CMS/HCC) Other cirrhosis of liver (CMS/HCC) Bjorn Cano MD [address] [facility] [address] [place] [address] Phone: tel: fax: Referral ID Status Reason Start Date Expiration Date Visits Re quested Visits Authorized [id number] Closed 09/22/2024 03/24/2026 1 1 Encounter Details Date Type Department Care Team (Late st Contact Info) Description 11/03/2024 8:40 AM EDT Office Visit [facility] [address] [place] [address] Jenny Alberto MD [address] [facility] [address] [place] [address] Autoimmune hepatitis (CMS/HCC) (Primary Dx); [...] EGD: Completed 06/02/[address] Vargas at [place]. No EV. PHG with reactive gastropathy. The [...] Last EGD 06/02/[address] Vargas at [place]. No EV. PHG with reactive gastropathy. - [...] RTC 3 months with same day ultrasound Bjorn Cano MD Hepatology Fellow Cosigned by [...] Info) Description 02/09/2025 8:[address] [facility] Ultrasound [address] [place] [address] 02/09/2025 10:00 AM EST Office Visit [facility] Medicine Specialties [address] [place] [address] Jenny Alberto MD [address] [place] [address] 05/06/2025 9:00 AM EST Office Visit [facility] [address] [place] [address] Myles Dyer MD [address] [place] [address] Scheduled Orders Name Type Priority [...] Alpha Fetoprotein, Serum (11/03/2024 10:14 AM EDT) [facility] Alpha Fetoprotein, Serum <2.3 <10.0 ng/mL 11/03/2024 12:59 PM EDT [facility] Blood Venous blood specimen / Unknown Venipuncture / Unknown 11/03/2024 10:14 AM EDT 11/03/2024 10:14 AM EDT Narrative [facility] - 11/03/2024 12:59 PM EDT Performed by Butch electrochemiluminescent immunoassay which is traceable to the 1st AFP IRP WHO Reference standard 72/255. Results obtained with different test methods or kits cannot be used interchangeably. us Bjorn Cano MD LAB BLOOD ORDERABLES Final Resul t [facility] [address] [place] [address] * IgG (11/03/2024 10:14 AM EDT) IGG 1,379 720 - 1,589 mg/dL 11/03/2024 11:31 AM EDT [facility] Blood Venous blood specimen / Unknown Venipuncture / Unknown 11/03/2024 10:14 AM EDT 11/03/2024 10:14 AM EDT us Bjorn Cano MD LAB BLOOD ORDERABLES Final Resul t [facility] [address] [place] [address] * (ABNORMAL) Comprehensive metabolic panel (11/03/2024 10:14 AM EDT) Glucose, Plasma 127(H) 74 - 99 mg/dL 11/03/2024 11:31 AM EDT [facility] BUN, Plasma 21 8 - 23 mg/dL 11/03/2024 11:31 AM EDT [facility] Creatinine, Plasma 0.92 0.70 - 1.20 mg/dL 11/03/2024 11:31 AM EDT [facility] BUN/Creatinine Ratio 23 11/03/2024 11:31 AM EDT [facility] Sodium, Plasma 141 136 - 145 mmol/L 11/03/2024 11:31 AM EDT [facility] Potassium, Plasma 4.5 3.6 - 4.9 mmol/L 11/03/2024 11:31 AM EDT [facility] Chloride, Plasma 104 97 - 107 mmol/L 11/03/2024 11:31 AM EDT [facility] CO2, Plasma 25 22 - 29 mmol/L 11/03/2024 11:31 AM EDT [facility] Anion Gap 12 6 - 16 mmol/L 11/03/2024 11:31 AM EDT [facility] Total Calcium, Plasma 9.6 8.9 - 10.2 mg/dL 11/03/2024 11:31 AM EDT [facility] Total Protein 7.2 6.3 - 7.9 g/dL 11/03/2024 11:31 AM EDT [facility] Albumin, Plasma 4.4 3.5 - 5.2 g/dL 11/03/2024 11:31 AM EDT [facility] AST, Plasma 93(H) 10 - 50 U/L 11/03/2024 11:31 AM EDT [facility] ALT, Plasma 121(H) 10 - 50 U/L 11/03/2024 11:31 AM EDT [facility] Alkaline Phosphatase, Plasma 76 40 - 115 U/L 11/03/2024 11:31 AM EDT [facility] Total Bilirubin, Plasma 0.6 0.2 - 1.1 mg/dL 11/03/2024 11:31 AM EDT [facility] eGFRcr 86.2 mL/min/1.7 3m*2 11/03/2024 11:31 AM EDT [facility] Comment:Reported eGFRcr in m L/min/1.73m2 is based the CKD-EPI 2020 equation that does not use a race coefficient. Blood Venous blood specimen / Unknown Venipuncture / Unknown 11/03/2024 10:14 AM EDT 11/03/2024 10:14 AM EDT us Bjorn Cano MD LAB BLOOD ORDERABLES Final Resul t [facility] [address] [place] [address] documented in this encounter Visit Diagnoses Diagnosis [...] documented as of this encounter Care Teams Live Truck Operator Relationship Specialty Start Date End Date Audi Howell DO [address] [place] [address] [place] [address] PCP - General 11/03/24 documented as of this encounter
--- OUTSIDE RECORDS SUMMARY | 2024-11-05 09:00 | XMS_ITS | Encounter Summary ---
Author Organization Healthcare Address [address] [place] [address] Care Team Providers Care Feller Hand Name Role Phone Audi Howell Primary Care Provider [phone] Reason for Visit * Reason Comments Follow-up Lupus Encounter Details Date Type Department Care Team (Latest Contact Info) Description 11/05/2024 9:00 AM EDT [facility] Visit [facility] [address] [place] [address] Myles Dyer MD [address] [place] [address] Autoimmune hepatitis (CMS/HCC) (Primary Dx); High risk medication use; Systemic lupus erythematosus (SLE) in adult (CMS/HCC); Anti-cardiolipin antibody positive; At risk for osteopenia Social History Tobacco Use Types Packs/Day Years Used Date Smoking Tobacco: Never Passive Smoke Exposure: Never Smokeless Tobacco: Never Alcohol Use Standard Drinks/Week Comments Never 0 (1 standard drink = 0.6 oz pur e alcohol) PHQ-2 Answer Date Recorded Patient Health Questionnaire-2 Score 0 11/05/2024 PHQ-9 Answer Date Recorded Patient Health Questionnaire-9 [...] Sign Reading Time Taken Comments Blood Pressure 160/77 11/05/2024 9:30 AM EDT Pulse 71 11/05/2024 8:51 AM EDT Temperature 36.5 C (97.7 F) 11/05/2024 8:51 AM EDT Respiratory Rate 16 11/05/2024 8:51 AM EDT Oxygen Saturation 97% 11/05/2024 8:51 AM EDT Inhaled Oxygen Concentration - - Weight 75.2 kg (165 lb 12.6 oz) 11/05/2024 8:51 AM EDT Height 175.3 cm (5' 9 ) 11/05/2024 8:51 AM EDT Body Mass Index 24.48 11/05/2024 8:51 AM EDT documented in this encounter Functional Status * Over the past 2 weeks, how often have you been bothered by any of the following problems? Question Answer Date of Assessment Author Little interest or pleasure in doing things Not at all 11/05/2024 8:55 AM EDT Rina Graff Feeling down, depressed, or hopeless Not at all 11/05/2024 8:55 AM EDT Rina Graff Patient Health Questionnaire -2 Score 0 11/05/2024 8:55 AM EDT Rina Graff documented as of this encounter Miscellaneous Notes * Patient Instructions - Myles Dyer MD - 11/05/2024 9:00 AM EDT Continue prednisone taper per gastroenterology Continue Myfortic, taper per gastroenterology rheumatology follow up in 6 months Contact [facility] if worsening joint pain/swelling, skin rash, oral ulcer or any other new symptoms that might relate to autoimmune disease. Follow up with solar design engineer as scheduled. Blood work and urine test every 3 months DEXA ( bone density test) * Progress Notes - Myles Dyer MD - 11/05/2024 9:00 AM EDT Images from the original note were not included. Rheumatology Office Visit - Progress Note Chief Complaint Patient presents with Follow-up Lupus Magen Patino is a 74 y.o. male who was referred to rheumatology by No ref. provider found for autoimmune pathology workup. Subjective 73 yo M with hx of CAD, HTN, HLD, BPH, recently diagnosed with autoimmune hepatitis who was referred for additioinal autoimmune pathology workup. The patient has had mildly elevated liver enzymes for last several years, but about 6 months ago ( spring 2023), there was significant increased that prompt additional workup. The patient was found to have elevated GONZALO, ASMA, Sm, dsDNA. Alpha-1 antitrypsin normal, HFE gene negative, antimitochondrial M2 antibody negative. Anti thyroid peroxidase antibody positive, antichromatin antibody positive, anti cardiolipin IgG +IgM positive. The patient has liver biopsy and pathology was consistent with autoimmune hepatitis. The patient started on high dose oral steroid about 2 weeks ago and his liver enzymes started to go down. Given multiple positive serologic tests, the patient was referred to rheumatology for evaluation Lab outside: + GONZALO, ASMA, dsDNA, Sm + aCL Igg and igm [facility]: high titer GONZALO ( homo) and ds DNA, low C4 Negative ssa, ssb, carpio, normal CRP and ESR. Liver biopsy: consistent with autoimmune hepatitis with stage 4 fibrosis. Today 11/05/2024: Accompanied by son Since his last appointment, there have been several changes in the patient???s management. He was unable to tolerate azathioprine due to gastrointestinal side effects, even at a reduced dose of 25 mgdaily, and the medication was subsequently discontinued. Following this, he developed worsening liver enzyme elevations, prompting an increase in his prednisone dose and a transition to Myfortic (mycophenolate sodium). He is currently taking 180 mg (one enteric- coated tablet) daily, with plans to increase to twice daily starting tomorrow. Thus far, he has tolerated Myfortic well without significant side effects. He continues prednisone at 20 mg daily. 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 He reports no new or worsening skin rashes. He notes mild facial erythema , which has been stable and not exacerbated by sun exposure. He continues to practice sun protection and feels that sun exposure has not significantly worsened his symptoms. He has a remote history of oral ulcers, but none recently. He denies significant joint pain, and there is no history of blood clots, stroke, DVT, or PE. He reports some oral dryness but no ocular dryness. No new complaints or concerns at this time. Patient denies fever (>100.4 F), night sweats, unintentional weight loss, rash, psoriasis, photosensitivity, raynaud's, nasal/oral/genital ulcers, alopecia, epistaxis, jaw pain/claudication, chestpain/palpitations, h/o pericarditis or pleuritis, hemoptysis, abdominal pain, dysphagia/regurgitation, odynophagia, n/v/d/c, hematochezia/melena, h/o IBD, dysuria, hematuria. Review of systems 14 point ROS was done, negative other than mentioned in HPI. Objective Past Medical History: Diagnosis Date GONZALO positive Arthralgia CAD (coronary artery disease) Cirrhosis (CMS/HCC) Diverticulitis Elevated liver enzymes Hyperlipidemia Hypertension Past Surgical History: Procedure Laterality Date HEMORRHOID SURGERY HERNIA REPAIR LIVER BIOPSY Family History Problem Relation Name Age of Onset Cirrhosis Brother Liver disease Other Social History Tobacco Use Smoking status: Never Passive exposure: Never Smokeless tobacco: Never Substance Use Topics Alcohol use: Never No Known Allergies MEDICATIONS Current Outpatient Medications on File Prior to Visit Medication Sig Dispense Refill amLODIPine (Norvasc) 5 MG tablet Take 1 tablet (5 mg) by mouth 1 (one) time each day. ASPIRIN 81 MG chewable tablet Chew 1 tablet (81 mg) 1 (one) time each day. atorvastatin (Lipitor) 10 MG tablet Take 1 tablet (10 mg) by mouth 1 (one) time each day. carvedilol (Coreg) 12.5 MG tablet Take 1 tablet by mouth 2 times a day with meals. 60 tablet 1 levothyroxine (Synthroid, Levoxyl) 75 MCG tablet Multiple Vitamin (multivitamin) tablet Take 1 tablet by mouth 1 (one) time each day. mycophenolate (Myfortic) 180 MG EC tablet Take 1 tablet by mouth 2 times a day. 60 tablet 1 predniSONE (Deltasone) 10 MG tablet Take 3 tablets by mouth daily. Take with breakfast 120 tablet 0 tamsulosin (Flomax) 0.4 MG 24 hr capsule Take 1 capsule (0.4 mg) by mouth 1 (one) time. levothyroxine (Synthroid, Levoxyl) 50 MCG tablet (Patient not taking: Reported on 11/03/2024) nutritional drink (Boost Plus) liquid liquid Drink 1 supplement up to 3 times a day or As Directed as a nutritional supplement. Flavor preference: per patient. 1 case today. Can dispense up to 4 cases at a time per patient request in the future (Patient not taking: Reported on 09/22/2024) 237 mL 11 ondansetron (Zofran) 4 MG tablet Take 1 tablet (4 mg) by mouth every 8 hours as needed for nausea or vomiting. (Patient not taking: Reported on 11/03/2024) 20 tablet 3 ranolazine (Ranexa) 500 MG 12 hr tablet Take 1 tablet (500 mg) by mouth 2 (two) times a day. Do notcrush, chew, or split. (Patient not taking: Reported on 11/03/2024) [DISCONTINUED] carvedilol (Coreg) 12.5 MG tablet Take 1 tablet by mouth 2 times a day with meals. No current facility-administered medications on file prior to visit. Results: Appointment on 11/03/2024 Component Date Value Glucose, Plasma 11/03/2024 127 (H) BUN, Plasma 11/03/2024 21 Creatinine, Plasma 11/03/2024 0.92 BUN/Creatinine Ratio 11/03/2024 23 Sodium, Plasma 11/03/2024 141 Potassium, Plasma 11/03/2024 4.5 Chloride, Plasma 11/03/2024 104 CO2, Plasma 11/03/2024 25 Anion Gap 11/03/2024 12 Total Calcium, Plasma 11/03/2024 9.6 Total Protein 11/03/2024 7.2 Albumin, Plasma 11/03/2024 4.4 AST, Plasma 11/03/2024 93 (H) ALT, Plasma 11/03/2024 121 (H) Alkaline Phosphatase, Pl* 11/03/2024 76 Total Bilirubin, Plasma 11/03/2024 0.6 eGFRcr 11/03/2024 86.2 IGG 11/03/2024 1,379 Alpha Fetoprotein, Serum 11/03/2024 <2.3 Prothrombin Time 11/03/2024 13.7 INR 11/03/2024 1.0 Currently available Rheumatologic testing values noted below: Lab Results Component Value Date SEDRATE 17 07/14/2024 GONZALO Detected (H) 01/21/2024 ANATITER >1:2560 (H) 01/21/2024 CRP <3.0 07/14/2024 Lab Results Component Value Date ALDOLASE 5.0 02/06/2024 C3 99 07/14/2024 C4 13 07/14/2024 Physical Exam 05/23/2024 9:30 AM 05/30/2024 8:36 AM 07/14/2024 8:30 AM 09/22/2024 9:00 AM 11/03/2024 8:41 AM 11/05/2024 8:51 AM 11/05/2024 9:30 AM Vitals Systolic 135 121 155 139 160 163 160 Diastolic 86 76 96 85 91 80 77 Heart Rate 57 99 64 81 71 Temp 36.4 C 36.7 C 36.7 C 36.3 C 36.5 C Resp 16 20 16 Height (cm) 175.3 cm 175.3 cm 175.3 cm 175.3 cm 175.3 cm Weight (kg) 79 kg 75.9 kg 74.4 kg 75.7 kg 75.2 kg BMI 25.72 kg/m2 24.71 kg/m2 24.22 kg/m2 24.65 kg/m2 24.48 kg/m2 BSA (m2) 1.96 m2 1.92 m2 1.9 m2 1.92 m2 1.91 m2 Visit Report Report Report Report Report Report Report Report Physical Exam Constitutional: No acute distress, well appearing and well nourished. Head and Face: mild redness of cheek and chin, more consistent with rosacea. Neck: Neck was supple, trachea midline and there were no masses or thyromegaly. Pulmonary: No increased work of breathing or signs of respiratory distress. *Lungs were clear to auscultation. Cardiovascular: Normal rate and rhythm, normal S1 and S2, no murmurs. *Pulses were full and symmetrical. *There was no extremity edema. Abdomen: Non-tender, non-distended. Skin: Inspection of skin and subcutaneous tissue was normal. *Palpation of skin and subcutaneous tissue was normal without rashes, nodules, or lesions. No alopecia. Musculoskeletal: *There was no evidence of synovitis and no joint effusions were detected. *Joints had a normal range of motion and normal alignment. *Muscle strength/tone was normal. Joon Us is a 74 y.o. male who presents as a new patient consult for Follow-up and Lupus #Autoimmune hepatitis #Elevated GONZALO and DsDNA, suspected incomplete SLE #Elevated aCL #Polyarthralgia Liver biopsy: consistent with autoimmune hepatitis. The management of this patient???s autoimmune hepatitis has been challenging due to intolerance of standard immunosuppressive therapies. Although his hepatitis initially responded well to treatment, he was unable to tolerate azathioprine (Imuran) because of significant gastrointestinal side effects. As a result, he is being transitioned to mycophenolate sodium (Myfortic). He is currently on a lowdose (180 mg daily, equivalent to 250 mg of mycophenolate mofetil/CellCept), with plans to gradually increase the dose as tolerated. The rationale for a slow titration was prior intolerance to azathioprine and concerns about exacerbating GI symptoms with rapid dose escalation. Gastroenterology is overseeing the titration schedule to minimize adverse effects. Azathioprine and mycophenolate are considered first-line agents for autoimmune hepatitis. If mycophenolate is not tolerated, alternative immunosuppressive options include calcineurin inhibitors such as tacrolimus. Rituximab may also be considered as a last-resort therapy, particularly if the patient is unable totolerate oral agents or if steroid-sparing is required and disease activity persists. While rituximab is not a first-line agent due to limited data, case series have reported successful use in refractory cases (Truong NN, Thompson J, Lisa D, et al. Efficacy of rituximab in [id number]-[id number] hepatitis: Results from the [employer]. JHEP Rep. 2019;1(6):437-445. doi:10.1016/j.jhepr.2019.10.005). Patient will continue to follow Gastroenterology for this issue. Plan; Continue prednisone taper, Myfortic taper, and safety lab screening per gastroenterology ollow up with solar design engineer as scheduled. #Elevated GONZALO and DsDNA, suspected incomplete SLE #Elevated aCL #Polyarthralgia The patient presents with persistently high titers of dsDNA and GONZALO, but without clear evidence of systemic organ involvement at this time, aside from hepatic involvement. While SLE can rarely present as autoimmune hepatitis, it is unusual for hepatic involvement to be the sole manifestation of SLE. Given the high autoantibody titers, hydroxychloroquine (HCQ) would typically be considered to reduce disease activity and prevent flares. However, the patient has a history of significant gastrointestinal intolerance to immunosuppressive therapy (notably azathioprine), and is currently undergoing a very gradual titration of Myfortic due to similar concerns. Introducing an additional medication such as HCQ at this stage could confound the clinical picture if GI symptoms worsen, making it difficult to determine whether symptoms are attributable to Myfortic titration or the new agent. This risk was discussed with the patient and family. The consensus is to continue the slow titration of Myfortic as monotherapy for now, deferring the addition of HCQ until the patient is stable on Myfortic and hepatic inflammation is better controlled. The goal is to reassess and potentially introduce HCQ within the next 6 months, contingent on clinical stability. Given the high autoantibody titers, ongoing surveillance for the development of additional SLE manifestations is warranted. The patient also has a history of elevated anticardiolipin antibody, thoughwithout any prior thrombotic events. Repeat antiphospholipid antibody testing is planned for further risk stratification. Plan: Continue slow titration of Myfortic as tolerated; defer addition of hydroxychloroquine until stabledosing is achieved and hepatic inflammation is controlled. Clinical surveillance for new SLE manifestations, including regular assessment for joint pain/swelling, skin rash, oral ulcers, or other symptoms suggestive of systemic involvement. Laboratory monitoring every 3 months including Urinalysis and urine protein/creatinine ratio and SLE activity markers: complement C3/C4, dsDNA titers Repeat antiphospholipid antibody panel for risk stratification. [facility] Rheumatology follow-up in 6 months. Advise patient to contact [facility] promptly if new or worsening symptoms develop, including joint pain/swelling, skin rash, oral ulcers, or other signs suggestive of autoimmune activity. #High risk for osteoporosis The patient is at significant risk for osteoporosis due to prolonged corticosteroid therapy, currently on prednisone 20 mg daily. It is well established that chronic prednisone use at doses greater than 7.5 mg daily substantially increases the risk of osteoporosis and subsequent fragility fractures, which can negatively impact quality of life. This risk, as well as the importance of early detection and prevention strategies, was discussed in detail with the patient. The most appropriate next step is to obtain a baseline DEXA scan to assess bone mineral density. This can be arranged at a facility convenient to the patient???s home. If the DEXA scan demonstrates normal bone mineral density, the patient will be advised to maintain regular weight-bearing physical activity and to have repeat bone density monitoring every 1-2 years while on steroid therapy. Plan: Order DEXA scan to assess bone mineral density. Ensure adequate vitamin D levels and recommend appropriate calcium intake. Encourage regular weight-bearing physical activity. Continue to monitor bone health and reassess risk periodically. Diagnosis Plan 1. Autoimmune hepatitis (CMS/HCC) Anti-DNA antibody, double-stranded 2. High risk medication use Dexa Bone Density 3. Systemic lupus erythematosus (SLE) in adult (CMS/HCC) Anti-DNA antibody, double-stranded C3 complement C4 complement CBC and differential Comprehensive metabolic panel C-reactive protein Sedimentation Rate, Automated Urinalysis with reflex microscopic (Culture NOT Included) Protein, Random, Urine with Creatinine Urinalysis with reflex microscopic (Culture NOT Included) Protein, Random, Urine with Creatinine 4. Anti-cardiolipin antibody positive Beta-2 Glycoprotein 1 Antibody, IgA (SO) Anti-Beta 2 Glycoprotein, IgG and IgM Cardiolipin antibody, IgA (SO) Anticardiolipin IgG and IgM Lupus Anticoagulant Profile RPR With Reflex to Titer 5. At risk for osteopenia Orders Placed This Encounter Procedures Dexa Bone Density Anti-DNA antibody, double-stranded C3 complement C4 complement CBC and differential Comprehensive metabolic panel C-reactive protein Sedimentation Rate, Automated Urinalysis with reflex microscopic (Culture NOT Included) Protein, Random, Urine with Creatinine Beta-2 Glycoprotein 1 Antibody, IgA (SO) Anti-Beta 2 Glycoprotein, IgG and IgM Cardiolipin antibody, IgA (SO) Anticardiolipin IgG and IgM Lupus Anticoagulant Profile RPR With Reflex to Titer Urinalysis with reflex microscopic (Culture NOT Included) Protein, Random, Urine with Creatinine Next scheduled follow up: Follow up in about 6 months (around 05/08/2025). Miscellaneous The patient was counseled about diagnostic results, instruction for management, risk factors reduction, prognosis, compliance with visits and treatment, risks and benefits of treatments options. Prior notes (by external physicians) and results were reviewed by me with independent interpretation of labs and imaging. My note will be sent to PCP and other consulting physicians. A total of 48 minutes was spent on this visit, including direct patient care and related activitiessuch as reviewing laboratory results, outside medical records, and imaging studies; performing a comprehensive history and physical examination; counseling the patient regarding diagnosis, treatment options, and follow-up; coordinating care with other specialists; and documenting the encounter. Myles Dyer M.D. Literacy Teacher Division of Rheumatology Department of Internal Medicine [facility] documented in this encounter Plan of Treatment Upcoming Encounters Date Type Department Care Team (Late st Contact Info) Description 02/09/2025 8:30 AM EST Appointment [facility] Ultrasound [address] [place] [address] 02/09/2025 10:00 AM EST Office Visit [facility] Medicine Specialties [address] [place] [address] Jenny Alberto MD [address] [facility] [address] [place] [address] 05/06/2025 9:00 AM EST Office Visit [facility] Medicine Specialties [address] [place] [address] Myles Dyer MD [address] [place] [address] Scheduled Orders Name Type Priority Associated Diagnoses Orde r Schedule Anti-DNA antibody, double-stranded Lab Routine Autoimmune hepatitis ([facility]) Systemic lupus erythematosus (SLE) in adult ([facility]) 3 months for 2 Occurrences starting 11/05/2024 until 05/08/2026 C3 complement Lab Routine Systemic lupus erythematosus (SLE) in adult ([facility]) 3 months for 2 Occurrences starting 11/05/2024 until 05/08/2026 C4 complement Lab Routine Systemic lupus erythematosus (SLE) in adult ([facility]) 3 months for 2 Occurrences starting 11/05/2024 until 05/08/2026 CBC and differential Lab Routine Systemic lupus erythematosus (SLE) in adult ([facility]) 3 months for 2 Occurrences starting 11/05/2024 until 05/08/2026 Comprehensive metabolic panel Lab Routine Systemic lupus erythematosus (SLE) in adult ([facility]) 3 months for 2 Occurrences starting 11/05/2024 until 05/08/2026 C-reactive protein Lab Routine Systemic lupus erythematosus (SLE) in adult ([facility]) 3 months for 2 Occurrences starting 11/05/2024 until 05/08/2026 Sedimentation Rate, Automated Lab Routine Systemic lupus erythematosus (SLE) in adult ([facility]) 3 months for 2 Occurrences starting 11/05/2024 until 05/08/2026 Urinalysis with reflex microscopic (Culture NOT Included) Lab Routine Systemic lupus erythematosus (SLE) in adult ([facility]) 3 months for 2 Occurrences starting 11/05/2024 until 05/08/2026 Protein, Random, Urine with Creatinine Lab Routine Systemic lupus erythematosus (SLE) in adult ([facility]) 3 months for 2 Occurrences starting 11/05/2024 until 05/08/2026 Dexa Bone Density Imaging Routine High risk medication use Expected: 11/05/2024 (Approximate), Expires: 05/08/2026 Beta-2 Glycoprotein 1 Antibody, IgA (SO) Lab Routine Anti-cardiolipin antibody positive Expected: 11/05/2024 (Approximate), Expires: 05/09/2026 Anti-Beta 2 Glycoprotein, IgG and IgM Lab Routine Anti-cardiolipin antibody positive Expected: 11/05/2024 (Approximate), Expires: 05/09/2026 Cardiolipin antibody, IgA (SO) Lab Routine Anti-cardiolipin antibody positive Expected: 11/05/2024 (Approximate), Expires: 05/09/2026 Anticardiolipin IgG and IgM Lab Routine Anti-cardiolipin antibody positive Expected: 11/05/2024 (Approximate), Expires: 05/09/2026 Lupus Anticoagulant Profile Lab Routine Anti-cardiolipin antibody positive Expected: 11/05/2024 (Approximate), Expires: 05/09/2026 RPR With Reflex to Titer Lab Routine Anti-cardiolipin antibody positive Expected: 11/05/2024 (Approximate), Expires: 05/09/2026 documented as of this encounter Results * Protein, Random, Urine with Creatinine (11/05/2024 10:04 AM EDT) Pathologist [facility] Protein, Urine <6 mg/dL 11/05/2024 11:41 AM EDT [facility] Creatinine, Urine 25 mg/dL 11/05/2024 11:41 AM EDT [facility] Protein/Creatin ine Ratio 11/05/2024 11:41 AM EDT [facility] Urine Urine specimen obtained by clean catch procedure / Unknown Non-blood Collection / Unknown 11/05/2024 10:04 AM EDT 11/05/2024 10:04 AM EDT us Myles Dyer MD LAB URINE ORDERABLES Final Res ult [facility] [address] [place] [address] * (ABNORMAL) Urinalysis with reflex microscopic (Culture NOT Included) (11/05/2024 10:04 AM EDT) Color, Urine Yellow LAB URINALYSIS - AUTOMATED METHOD 11/05/2024 11:12 AM EDT [facility] Clarity, Urine Clear LAB URINALYSIS - AUTOMATED METHOD 11/05/2024 11:12 AM EDT [facility] Spec [place], Urine 1.009 1.005 - 1.030 LAB URINALYSIS - AUTOMATED METHOD 11/05/2024 11:12 AM EDT [facility] pH, Urine 7.5 5.0 - 8.0 LAB URINALYSIS - AUTOMATED METHOD 11/05/2024 11:12 AM EDT [facility] Protein, Urine Negative Negative mg/dL LAB URINALYSIS - AUTOMATED METHOD 11/05/2024 11:12 AM EDT [facility] Glucose, Urine Negative Negative mg/dL LAB URINALYSIS - AUTOMATED METHOD 11/05/2024 11:12 AM EDT [facility] Ketones, Urine Negative Negative mg/dL LAB URINALYSIS - AUTOMATED METHOD 11/05/2024 11:12 AM EDT [facility] Blood, Urine Negative Negative LAB URINALYSIS - AUTOMATED METHOD 11/05/2024 11:12 AM EDT [facility] Bilirubin, Urine Negative Negative LAB URINALYSIS - AUTOMATED METHOD 11/05/2024 11:12 AM EDT [facility] Urobilinogen, Urine 0.2 0.2 to 1.0 mg/dL LAB URINALYSIS - AUTOMATED METHOD 11/05/2024 11:12 AM EDT [facility] Leukocytes, Urine Small(A) Negative LAB URINALYSIS - AUTOMATED METHOD 11/05/2024 11:12 AM EDT [facility] Nitrite, Urine Negative Negative LAB URINALYSIS - AUTOMATED METHOD 11/05/2024 11:12 AM EDT [facility] RBC, Urine <1 0 to 3 /HPF LAB URINALYSIS - AUTOMATED METHOD 11/05/2024 11:12 AM EDT [facility] WBC, Urine 6 - 10(A) 0 to 5 /HPF LAB URINALYSIS - AUTOMATED METHOD 11/05/2024 11:12 AM EDT [facility] Squamous Epithelial Cells 0 - 2 0 to 5 /HPF LAB URINALYSIS - AUTOMATED METHOD 11/05/2024 11:12 AM EDT [facility] Hyaline Casts 0 - 2 0 to 5 /LPF LAB URINALYSIS - AUTOMATED METHOD 11/05/2024 11:12 AM EDT [facility] Bacteria, Urine Negative Negative LAB URINALYSIS - AUTOMATED METHOD 11/05/2024 11:12 AM EDT [facility] Urine Urine specimen obtained by clean catch procedure / Unknown Non-blood Collection / Unknown 11/05/2024 10:04 AM EDT 11/05/2024 10:04 AM EDT us Myles Dyer MD LAB URINE ORDERABLES Final Res ult [facility] [address] [place] [address] documented in this encounter Visit Diagnoses Diagnosis Autoimmune hepatitis (CMS/HCC)- Primary Autoimmune hepatitis High risk medication use Systemic lupus erythematosus (SLE) in adult (CMS/HCC) Anti-cardiolipin antibody positive Other and unspecified nonspecific immunological findings At risk for osteopenia Other specified conditions influencing health status documented in this encounter Additional Health Concerns Assessment Noted Time PHQ-9 Depression Total Score: 0 11/04/19 8:42 AM EDT A fall risk assessment has been complete d for the patient 11/05/2024 8:55 AM EDT A Body Mass Index follow-up plan has been documented for the patient 11/05/2024 9:42 AM EDT documented as of this encounter Care Teams Feller Hand Relationship Specialty Start Date End Date Audi Howell DO [address] [place] [address] [place] [id number] PCP - General 11/03/24 documented as of this encounter
--- OUTSIDE RECORDS SUMMARY | 2024-11-25 07:13 | XMS_ITS | Encounter Summary ---
Author Organization Healthcare Address [address] [place] [address] Care Team Providers Care Rolls Mill Operator Name Role Phone Luis Lawson MD Primary Care Provider [phone] Encounter Details Date Type Department Care Team (Late st Contact Info) Description 10/24/2024 Orders Only [facility] Medicine Specialties [address], [address]nd [place] [address] Jenny Alberto MD [address] [facility] [address] [place] [address] Social History Tobacco Use Types [...] 02/09/2025 8:30 AM EST Appointment [facility] Ultrasound [address], [address] [place] [address] 02/09/2025 10:00 AM EST Office Visit [facility] Medicine Specialties [address], [address]nd [place] [address] Jenny Alberto MD [address] [place] [address] 05/06/2025 9:00 AM EST Office Visit [facility] Medicine Specialties [address], [address] [place] [address] Myles Dyer MD [address] [place] [address] documented as of this encounter Procedures Procedure [...] documented as of this encounter Care Teams Rolls Mill Operator Relationship Specialty Start Date End Date Luis Lawson MD [address] [place] [address] [place] [address] PCP - General 02/25/24 11/02/24 documented as of this encounter
--- OUTSIDE RECORDS SUMMARY | 2024-11-25 07:13 | XMS_ITS | Encounter Summary ---
Author Organization Healthcare Address [address] [place] [address] Care Team Providers Care Jr. Systems Administrator Name Role Phone Field, [employer]ita PAINT[employer] Primary Care Provider [phone] Luis Lawson MD Primary Care Provider [phone] Audi Howell DO Primary Care Provider [phone] Encounter Details Date Type Department Care Team (Late st Contact Info) Description 01/23/2024 Lab Requisition [facility] [address] [place] [address] Jenny Alberto MD [address] [place] [address] Elevation of levels of liver [...] EST Appointment [facility] Ultrasound [address]nd [place] [address] 02/09/2025 10:00 AM EST Office Visit [facility] Medicine Specialties [address], [address] [place] [address] Jenny Alberto MD [address] [facility] [address] [place] [address] 05/06/2025 9:00 AM EST Office Visit [facility] Medicine Specialties [address], [address] [place] [address] Myles Dyer MD [address] [place] [address] documented as of this encounter Procedures Procedure Name Priority Date/Time Associated Diagnosis Comments SURGICAL PATHOLOGY CONSULT Routine 01/23/2024 1:42 PM EST Elevation of levels of liver transaminase levels documented in this encounter Results * Surgical Pathology Consult (01/23/2024 1:42 PM EST) Case Report Sugical Pathology Consult Case: [id number] Authorizing Provider: Jenny Alberto MD Collected: 01/23/2024 1342 Ordering Location: [facility] Lab Received: 01/23/2024 1342 Pathologist: Nasra Nava MD Specimen: Liver, [id number] 01/24/2024 4:41 PM EST [facility] Final Diagnosis LIVER, NEEDLE CORE BIOPSY ([id number]; 08/15/2023): - CLINICOPATHOLOGIC FINDINGS CONSISTENT WITH AUTOIMMUNE [...] correlation is recommended. 01/24/2024 4:41 PM EST [facility] Clinical Information R74.01 - Elevation of levels of liver transaminase levels [ICD-10-CM] 01/24/2024 4:41 PM EST [facility] Gross Description A. [id number] Received along with a corresponding pathology report from [facility] are 3 slides labeled outside case: [id number] collected on 08/15/2023. 01/24/2024 4:41 PM EST [...] Result [facility] [address] [place] [address] documented in this encounter Visit Diagnoses Diagnosis [...] documented as of this encounter Care Teams Jr. Systems Administrator Relationship Specialty Start Date End Date Vita Reid APRN [address] [place] [address] PCP - General 07/23/20 02/24/24 Luis Lawson MD [address] [place] [address] [place] [address] PCP - General 02/25/24 11/02/24 Audi Howell DO [address] [place] [address] [address] [place] [address] PCP - General 11/03/24 documented as of this encounter
--- OUTSIDE RECORDS SUMMARY | 2024-11-25 07:13 | XMS_ITS | Encounter Summary ---
Author Organization Healthcare Address [address] [place] [address] Care Team Providers Care Car Salesman Name Role Phone Luis Lawson MD Primary Care Provider [phone] Audi Howell DO Primary Care Provider [phone] Encounter Details Date Type Department Care Team (Late st Contact Info) Description 10/15/2024 Results Follow-Up [facility] Medicine Specialties [address] [place] [address] Bjorn Cano MD [address] [place] [address] Social History Tobacco Use Types [...] Appointment [facility] Ultrasound [address], [address]nd [place] [address] 02/09/2025 10:00 AM EST Office Visit [facility] Medicine Specialties [address], [address] [place] [address] Jenny Alberto MD [address] [place] [address] 05/06/2025 9:00 AM EST Office Visit [facility] Medicine Specialties [address], [address] [place] [address] Myles Dyer MD [address] [facility] [address] [place] [address] documented as of this encounter [...] documented as of this encounter Care Teams Car Salesman Relationship Specialty Start Date End Date Luis Lawson MD [address] [place] [address] [place] [address] PCP - General 02/25/24 11/02/24 Audi Howell DO [address] [place] [address] PCP - General 11/03/24 documented as of this encounter
--- OUTSIDE RECORDS SUMMARY | 2024-11-25 07:13 | XMS_ITS | Encounter Summary ---
Author Organization Healthcare Address [address] [place] [place] [address] Care Team Providers Care Chemical Process Engineer Name Role Phone Luis Lawson MD Primary Care Provider Encounter Details Date Type Department Care Team (Late st Contact Info) Description 10/22/2024 Orders Only [facility] Medicine Specialties [address]nd [place] [address] Caroline Tsang, RN Autoimmune hepatitis [...] Info) Description 02/09/2025 8:30 AM EST Appointment [facility] Ultrasound [address], [address]nd [place] [address] 02/09/2025 10:00 AM EST Office Visit [facility] Medicine Specialties [address], [address] [place] [address] Jenny Alberto MD [address] [place] [address] 05/06/2025 9:00 AM EST Office Visit [facility] Medicine Specialties [address], [address] [place] [address] Myles Dyer MD [address] [place] [address] documented as of this encounter [...] documented as of this encounter Care Teams Chemical Process Engineer Relationship Specialty Start Date End Date Luis Lawson MD [address] [place] [address] PCP - General 02/25/24 11/02/24 documented as of this encounter
--- OUTSIDE RECORDS SUMMARY | 2024-11-25 07:13 | XMS_ITS | Encounter Summary ---
Author Organization Healthcare Address [address] [place] [place] [address] Care Team Providers Care Ad Taker Name Role Phone Luis Lawson MD Primary Care Provider [phone] Encounter Details Date Type Department Care Team (Late st Contact Info) Description 10/13/2024 Orders Only [facility] Medicine Specialties [address], [address] [place] [address] Lori Levi, RN MEDICINE SPECIALTIES [...] [facility] [address], [address] [place] [phone] 02/09/2025 10:00 AM EST Office Visit [facility] Medicine Specialties [address], [address] [place] [address] Jenny Alberto MD [address] [place] [address] 05/06/2025 9:00 AM EST Office Visit [facility]ties [address], [address] [place] [address] Myles Dyer MD [address] [place] [address] documented as of this encounter [...] ORDERABLES Final Resul t Performing Organization Address [facility] Co de Phone Number EXTERNAL LAB [...] documented as of this encounter Care Teams Ad Taker Relationship Specialty Start Date End Date Luis Lawson MD [address] [place] [address] PCP - General 02/25/24 11/02/24 documented as of this encounter
--- OUTSIDE RECORDS SUMMARY | 2024-11-25 07:13 | XMS_ITS | Encounter Summary ---
Author Organization Healthcare Address [address] [place] [address] Care Team Providers Care Community Ambassador Name Role Phone DanteAudi Serafin DO Primary Care Provider [phone] Reason for Visit * Reason Onset Date Comments Med Refill 11/12/2024 Encounter Details Date Type Department Care Team (Late st Contact Info) Description 11/12/2024 Refill [facility] [address] [place] [address] Jenny Alberto MD [address] [place] [phone] Social History Tobacco Use Types Packs/Day Years [...] Info) Description 02/09/2025 8:30 AM EST Appointment [facility] Ultrasound [address], [address] [place] [address] 02/09/2025 10:00 AM EST Office Visit [facility] Medicine Specialties [address], [address] [place] [address] Jenny Alberto MD [address] [place] [address] 05/06/2025 9:00 AM EST Office Visit [facility] Specialties [address], [address] [place] [address] Myles Dyer MD [address] [place] [address] documented as of this encounter [...] documented as of this encounter Care Teams Community Ambassador Relationship Specialty Start Date End Date Audi Howell DO [address] [place] [address] PCP - General 11/03/24 documented as of this encounter
--- OUTSIDE RECORDS SUMMARY | 2024-11-25 07:13 | XMS_ITS | Encounter Summary ---
Author Organization Healthcare Address [address] [place] [address] Care Team Providers Care Inspector Assemblies And Installations Name Role Phone Audi Howell Primary Care Provider [phone] Encounter Details Date Type Department Care Team (Late st Contact Info) Description 11/05/2024 Telephone [facility] Specialties [address], [address] [place] [phone] Lori Levi, RN MEDICINE SPECIALTIES CLINIC Social [...] encounter Miscellaneous Notes * Telephone Encounter - Caroline Tsang RN - 11/21/2024 3:00 PM EDT Relayed result note to pt. He was frustrated as he could not reach radiology scheduling to set up his US appt. Advised he had been schd for 02/09 before his ofv with Dr. Alberto. Reviewed appt info andNPO requirements. Pt verbalized understanding. Task out to fax labs in 2 weeks to [facility] * Telephone Encounter - Caroline Tsang RN - 11/20/2024 2:02 PM EDT Labs uploaded under media to provider * Telephone Encounter - Lori Levi RN - 11/07/2024 11:04 AM EDT S/W patient He will get CMV and standing lab orders completed at [facility] on 11/17/24 He does not need [...] ALT 120 from 60 2 weeks ago, fady on prednisone 20mg/day- I advised him to increase pred to 30mg/day, he is willing now to start myfortic 180mg bid again (while he increases his carvedilol to 12.5mg bid) and I advised him to do labs in 2 weeks. Lori, can you pls send a CMV PCR order to [facility]? I placed the order. documented in this encounter Plan of Treatment Upcoming Encounters Date Type Department Care Team (Late st Contact Info) Description 02/09/2025 8:30 AM EST Appointment [facility] Ultrasound [address], [address] [place] [address] 02/09/2025 10:00 AM EST Office Visit [facility] Medicine Specialties [address], [address] [place] [address] Jenny Alberto MD [address] [place] [address] 05/06/2025 9:00 AM EST Office Visit [facility] Medicine Specialties [address], [address] [place] [address] Myles Dyer MD [address] [place] [address] documented as of this encounter [...] documented as of this encounter Care Teams Inspector Assemblies And Installations Relationship Specialty Start Date End Date Audi Howell DO [address] [facility] [address] [address] PCP - General 11/03/24 documented as of this encounter
--- OUTSIDE RECORDS SUMMARY | 2024-11-25 07:13 | XMS_ITS | Encounter Summary ---
Author Organization Healthcare Address [address] [place] [place] [address] Care Team Providers Care Cook Helper Vegetable Name Role Phone Audi Howell Primary Care Provider [phone] Encounter Details Date Type Department Care Team (Late st Contact Info) Description 11/20/2024 Orders Only [facility] Medicine Specialties [address], [address] [place] [address] Provider, [address] [address] Social History Tobacco Use Types Packs/Day Years [...] [facility] Ultrasound [address], [address]nd [place] [address] 02/09/2025 10:00 AM EST Office Visit [facility] Medicine Specialties [address], [address] [place] [address] Jenny Alberto MD [address] [place] [address] 05/06/2025 9:00 AM EST Office Visit [facility] Specialties [address], [address] [place] [address] Myles Dyer MD [address] [facility] [address] [place] [address] documented as of this encounter Procedures Procedure Name Priority Date/Time Associated Diagnosis Comments IGG, PLASMA Routine 11/17/2024 7:56 AM EDT documented in this encounter Results * IgG, Plasma (11/17/2024 7:56 AM EDT) Blood Venous blood specimen / Unknown us Historical Provider LAB BLOOD ORDERABLES Final R esult documented in this encounter Visit Diagnoses Not [...] of this encounter Care Teams Cook Helper Vegetable Relationship Specialty Start Date End Date Audi Howell, [address] [place] [address] PCP - General 11/03/24 documented as of this encounter
--- OUTSIDE RECORDS SUMMARY | 2024-11-25 07:13 | XMS_ITS | Clinical Summary ---
Author Organization [facility] Address [address] [place] [address] Care Team Providers Care Farmworker Grain Name Role Phone DanteAudi Primary Care Provider [phone] Allergies No known active allergies Medications amLODIPine [...] Encounters Date Type Department Care Team Description 11/20/2024 Orders Only [facility] Medicine Specialties [address], [address] [place] [address] Provider, Historical 11/17/2024 Orders Only [facility] Medicine Specialties [address], [address] [place] [address] Provider, Historical 11/12/2024 Refill [facility] Transplant Center [address] [place] [address] Jenny Alberto MD 11/05/2024 9:00 AM EDT Office Visit [facility] Medicine Specialties [address], [address] [place] [address] Myles Dyer MD Autoimmune hepatitis (CMS/HCC) (Primary Dx); High risk medication use; Systemic lupus erythematosus (SLE) in adult (CMS/HCC); Anti-cardiolipin antibody positive; At risk for osteopenia 11/05/2024 Travel 11/05/2024 Telephone [facility] Medicine Specialties [address], [address] [place] [address] Lori Levi RN 11/03/2024 8:40 AM EDT Office Visit [facility] Specialties [address], [address] [place] [address] Jenny Alberto MD Autoimmune hepatitis (CMS/HCC) (Primary Dx); Other cirrhosis of liver (CMS/HCC); Elevated liver enzymes; Current use of steroid medication; Hypertension, unspecified type; Nausea 11/03/2024 Travel 10/24/2024 Orders Only [facility] Medicine Specialties [address], [address] [place] [address] Jenny Alberto MD 10/22/2024 Orders Only [facility] Medicine Specialties [address], [address] [place] [address] Caroline Tsang RN Autoimmune hepatitis (CMS/HCC) 10/15/2024 Results Follow-Up [facility] Specialties [address], [address] [place] [address] Bjorn Cano MD 10/13/2024 Orders Only [facility] Specialties [facility] [address], [address] [place] [address] Lori Levi RN Autoimmune hepatitis (CMS/HCC) 09/22/2024 10:40 AM EDT Clinical Support [facility] Lab [address], [address] [place] [address] Autoimmune hepatitis (CMS/HCC) 09/22/2024 9:00 AM EDT Office Visit [facility] Specialties [address] [place] [address], [address] [place] [address] Jenny Alberto MD Autoimmune hepatitis (CMS/HCC) (Primary Dx); Other cirrhosis of liver (CMS/HCC); Nausea; Elevated liver enzymes; High total IgG; History of diverticulitis 09/22/2024 Results Follow-Up [facility] Specialties [address] [place] [address], [address] [place] [address] Bjorn Cano MD 09/22/2024 Travel 09/01/2024 Telephone [facility] Specialties [address] [place] [address], [address] [place] [address] Caroline Tsang RN 08/29/2024 Orders Only [facility] Specialties [address] [place] [address] Caroline Tsang RN Autoimmune hepatitis (CMS/HCC) from [...] 02/09/2025 8:30 AM EST Appointment [facility] Ultrasound [address], [address]nd [place] [address] 02/09/2025 10:00 AM EST Office Visit [facility] Medicine Specialties [address], [address] [place] [address] Jenny Alberto MD [address] [place] [address] 05/06/2025 9:00 AM EST Office Visit [facility] Medicine Specialties [address], [address] [place] [address] Myles Dyer MD [address] [place] [address] Health Maintenance Due Date Last [...] or (1 - 1-dose 75+ series) 10/11/2023 [id number] Vaccine (7 - Moderna risk 2023- season) 2024 01/03/2024, 12/28/2022, 12/28/2021, Additional history exists [facility]-Influenza Vaccine (#1) 2024 01/03/2023, [facility]-Depression Screening 11/05/2025 11/05/2024, 0807/2024 [facility]-Hepatitis C Screening Completed 01/21/2024 HPV Vaccines [...] Diagnosis Comments COMPLETE METABOLIC PROFILE (CMP) Routine 11/17/2024 11:58 AM EDT IGG, PLASMA Routine 11/17/2024 7:56 AM EDT URINALYSIS MICROSCOPIC FOR UA REFLEX Routine 11/05/2024 10:04 AM EDT Systemic lupus erythematosus (SLE) in adult (CMS/HCC) URINALYSIS WITH REFLEX MICROSCOPIC Routine 11/05/2024 10:04 AM EDT Systemic lupus erythematosus (SLE) in adult (CMS/HCC) PROTEIN, URINE, RANDOM WITH CREATININE Routine 11/05/2024 [...] Maintenance Results * COMPLETE METABOLIC PROFILE (CMP) (11/17/2024 11:58 AM EDT) Only the most recent of2 resultswithin the time period is included. Historical Provider LAB BLOOD ORDERABLES Final R esult * IgG, Plasma (11/17/2024 7:56 AM EDT) Only the most recent of5 resultswithin the time period is included. Blood Venous blood specimen / Unknown Historical Provider LAB BLOOD ORDERABLES Final R esult * Urinalysis Microscopic Examination (11/05/2024 10:04 AM EDT) Urine Urine specimen obtained by clean catch procedure / Unknown Non-blood Collection / Unknown 11/05/2024 10:04 AM EDT 11/05/2024 10:04 AM EDT Result [facility] Myles Dyer MD LAB URINE ORDERABLES Final Res ult [facility] [address] [place] [address] * Protein, Random, Urine with Creatinine (11/05/2024 10:04 AM EDT) Protein, Urine <6 mg/dL 11/05/2024 11:41 AM EDT [facility] Creatinine, Urine 25 mg/dL 11/05/2024 11:41 AM EDT [facility] Protein/Creatin ine Ratio 11/05/2024 11:41 AM EDT [facility] Urine Urine specimen obtained by clean catch procedure / Unknown Non-blood Collection / Unknown 11/05/2024 10:04 AM EDT 11/05/2024 10:04 AM EDT us Myles Dyer MD LAB URINE ORDERABLES Final Res ult [facility] [address] [place] [address] * (ABNORMAL) Urinalysis with reflex microscopic (Culture NOT Included) (11/05/2024 10:04 AM EDT) Color, Urine Yellow LAB URINALYSIS - AUTOMATED METHOD 11/05/2024 11:12 AM EDT [facility] Clarity, Urine Clear LAB URINALYSIS - AUTOMATED METHOD 11/05/2024 11:12 AM EDT [facility] Spec [place], Urine 1.009 1.005 - 1.030 LAB URINALYSIS - AUTOMATED METHOD 11/05/2024 11:12 AM EDT [facility] pH, Urine 7.5 5.0 - 8.0 LAB URINALYSIS - AUTOMATED METHOD 11/05/2024 11:12 AM EDT [facility] Protein, Urine Negative Negative mg/dL LAB URINALYSIS - AUTOMATED METHOD 11/05/2024 11:12 AM EDT [facility] Glucose, Urine Negative Negative mg/dL LAB URINALYSIS - AUTOMATED METHOD 11/05/2024 11:12 AM EDT [facility] Ketones, Urine Negative Negative mg/dL LAB URINALYSIS - AUTOMATED METHOD 11/05/2024 11:12 AM EDT [facility] Blood, Urine Negative Negative LAB URINALYSIS - AUTOMATED METHOD 11/05/2024 11:12 AM EDT [facility] Bilirubin, Urine Negative Negative LAB URINALYSIS - AUTOMATED METHOD 11/05/2024 11:12 AM EDT [facility] Urobilinogen, Urine 0.2 0.2 to 1.0 mg/dL LAB URINALYSIS - AUTOMATED METHOD 11/05/2024 11:12 AM EDT [facility] Leukocytes, Urine Small(A) Negative LAB URINALYSIS - AUTOMATED METHOD 11/05/2024 11:12 AM EDT [facility] Nitrite, Urine Negative Negative LAB URINALYSIS - AUTOMATED METHOD 11/05/2024 11:12 AM EDT [facility] RBC, Urine <1 0 to 3 /HPF LAB URINALYSIS - AUTOMATED METHOD 11/05/2024 11:12 AM EDT [facility] WBC, Urine 6 - 10(A) 0 to 5 /HPF LAB URINALYSIS - AUTOMATED METHOD 11/05/2024 11:12 AM EDT [facility] Squamous Epithelial Cells 0 - 2 0 to 5 /HPF LAB URINALYSIS - AUTOMATED METHOD 11/05/2024 11:12 AM EDT [facility] Hyaline Casts 0 - 2 0 to 5 /LPF LAB URINALYSIS - AUTOMATED METHOD 11/05/2024 11:12 AM EDT [facility] Bacteria, Urine Negative Negative LAB URINALYSIS - AUTOMATED METHOD 11/05/2024 11:12 AM EDT [facility] Urine Urine specimen obtained by clean catch procedure / Unknown Non-blood Collection / Unknown 11/05/2024 10:04 AM EDT 11/05/2024 10:04 AM EDT us Myles Dyer MD LAB URINE ORDERABLES Final Res ult [facility] [address] [place] [address] * Alpha Fetoprotein, Serum (11/03/2024 10:14 AM EDT) Alpha Fetoprotein, Serum <2.3 <10.0 ng/mL 11/03/2024 12:59 PM EDT [facility] Blood Venous blood specimen / Unknown Venipuncture / Unknown 11/03/2024 10:14 AM EDT 11/03/2024 10:14 AM EDT Narrative [facility] - 11/03/2024 12:59 PM EDT Performed by [employer] electrochemiluminescent immunoassay which is traceable to the [address] [place] [address] WHO Reference standard 72/255. Results obtained with different test methods or kits cannot be used interchangeably. Bjorn Cano MD LAB BLOOD ORDERABLES Final Resul t Performing Organization Address [facility] Co de Phone Number [facility] [address] [place] [address] * Protime-INR (11/03/2024 10:14 AM EDT) Only the most recent of2 resultswithin the time period is included. Prothrombin Time 13.7 12.0 - 14.3 sec LAB COAGULATION METHOD 11/03/2024 11:54 AM EDT [facility] INR 1.0 0.9 - 1.1 LAB COAGULATION METHOD 11/03/2024 11:54 AM EDT [facility] Blood Venous blood specimen / Unknown Venipuncture / Unknown 11/03/2024 10:14 AM EDT 11/03/2024 10:14 AM EDT Narrative [facility] - 11/03/2024 11:54 AM EDT OPTIMAL INR RANGES FOR PATIENT ON ORAL ANTICOAGULANT THERAPY Prevention of venous thromboembolism INR 2.0 to 3.0 In patients with heart disease: Atrial fibrillation INR 2.0 to 3.0 Valvular heart disease INR 2.0 to 3.0 Tissue heart valves INR 2.0 to 3.0 Mechanical prosthetic valves INR 2.5 to 3.5 Prevention of recurrent SD INR 2.5 to 3.5 us Bjorn Cano MD LAB BLOOD ORDERABLES Final Resul t Performing Organization Address [facility] Co de Phone Number [facility] [address] [place] [address] * (ABNORMAL) Comprehensive metabolic panel (11/03/2024 10:14 AM EDT) Only the most recent of4 resultswithin the time period is included. Glucose, Plasma 127(H) 74 - 99 mg/dL 11/03/2024 11:31 AM EDT [facility] BUN, Plasma 21 8 - 23 mg/dL 11/03/2024 11:31 AM EDT [facility] Creatinine, Plasma 0.92 0.70 - 1.20 mg/dL 11/03/2024 11:31 AM EDT [facility] BUN/Creatinine Ratio 23 11/03/2024 11:31 AM EDT [facility] Sodium, Plasma 141 136 - 145 mmol/L 11/03/2024 11:31 AM EDT [facility] Potassium, Plasma 4.5 3.6 - 4.9 mmol/L 11/03/2024 11:31 AM EDT [facility] Chloride, Plasma 104 97 - 107 mmol/L 11/03/2024 11:31 AM EDT [facility] CO2, Plasma 25 22 - 29 mmol/L 11/03/2024 11:31 AM EDT [facility] Anion Gap 12 6 - 16 mmol/L 11/03/2024 11:31 AM EDT [facility] Total Calcium, Plasma 9.6 8.9 - 10.2 mg/dL 11/03/2024 11:31 AM EDT [facility] Total Protein 7.2 6.3 - 7.9 g/dL 11/03/2024 11:31 AM EDT [facility] Albumin, Plasma 4.4 3.5 - 5.2 g/dL 11/03/2024 11:31 AM EDT [facility] AST, Plasma 93(H) 10 - 50 U/L 11/03/2024 11:31 AM EDT [facility] ALT, Plasma 121(H) 10 - 50 U/L 11/03/2024 11:31 AM EDT [facility] Alkaline Phosphatase, Plasma 76 40 - 115 U/L 11/03/2024 11:31 AM EDT [facility] Total Bilirubin, Plasma 0.6 0.2 - 1.1 mg/dL 11/03/2024 11:31 AM EDT [facility] eGFRcr 86.2 mL/min/1.7 3m*2 11/03/2024 11:31 AM EDT [facility] Comment:Reported eGFRcr in m L/min/1.73m2 is based the CKD-EPI 2020 equation that does not use a race coefficient. Blood Venous blood specimen / Unknown Venipuncture / Unknown 11/03/2024 10:14 AM EDT 11/03/2024 10:14 AM EDT Bjorn Cano MD LAB BLOOD ORDERABLES Final Resul t Performing Organization Address [facility] Co de Phone Number [facility] [address] [place] [address] * CBC and Differential (10/22/2024 3:55 PM EDT) Only the most recent of3 resultswithin the time period is included. Blood Venous blood specimen / Unknown Jenny Alberto MD LAB BLOOD ORDERABLES Final Result Performing Organization Address [facility] Co de Phone Number EXTERNAL LAB * Hepatitis C antibody (01/21/2024 12:22 PM EST) Hepatitis C Antibody Negative Negative 01/21/2024 3:15 PM EST [facility] Blood Venous blood specimen / Unknown Venipuncture / Unknown 01/21/2024 12:22 PM EST 01/21/2024 12:23 PM EST Jenny Alberto MD LAB BLOOD ORDERABLES Final Result Performing Organization Address [facility] de Phone Number [facility] [address] [place] [address] from Last 3 Months or Most Recently Relevant to Health Maintenance Insurance [place] [id number] [facility] MEDICARE Care Teams Farmworker Grain Relationship Specialty Start Date End Date Audi Howell DO [address] [address] PCP - General 11/03/24
--- OUTSIDE RECORDS SUMMARY | 2024-11-25 07:13 | XMS_ITS | Encounter Summary ---
Author Organization Healthcare Address [address] [place] [address] Care Team Providers Care Bow Maker Name Role Phone Audi Howell Primary Care Provider [phone] Encounter Details Date Type Department Care Team [...] Info) Description 02/09/2025 8:30 AM EST Appointment [facility] Ultrasound [address] [place] [address] 02/09/2025 10:00 AM EST Office Visit [facility] Medicine Specialties [address], [address] [place] [address] Jenny Alberto MD [address] [place] [address] 05/06/2025 9:00 AM EST Office Visit [facility] Medicine Specialties [address], [address] [place] [address] Myles Dyer MD [address] [place] [address] documented as of this encounter [...] documented as of this encounter Care Teams Bow Maker Relationship Specialty Start Date End Date Audi Howell, [address] [place] [address] PCP - General 11/03/24 documented as of this encounter
--- OUTSIDE RECORDS SUMMARY | 2024-11-25 07:13 | XMS_ITS | Encounter Summary ---
Author Organization Healthcare Address [address] [place] [address] Care Team Providers Care Tableau Architect Name Role Phone Audi Howell Primary Care Provider [phone] Encounter Details Date Type Department Care Team [...] Info) Description 02/09/2025 8:30 AM EST Appointment [facility] Ultrasound [address] [place] [address] 02/09/2025 10:00 AM EST Office Visit [facility] Medicine Specialties [address], [address] [place] [address] Jenny Alberto MD [address] [place] [address] 05/06/2025 9:00 AM EST Office Visit [facility] Medicine Specialties [address], [address] [place] [address] Myles Dyer MD [address] [place] [address] documented as of this encounter [...] documented as of this encounter Care Teams Tableau Architect Relationship Specialty Start Date End Date Audi Howell DO [address] [place] [address] PCP - General 11/03/24 documented as of this encounter
--- OUTSIDE RECORDS SUMMARY | 2024-11-25 07:13 | XMS_ITS | Encounter Summary ---
Author Organization Healthcare Address [address] [place] [address] Care Team Providers Care Food Service Technician Name Role Phone Audi Howell Primary Care Provider [phone] Encounter Details Date Type Department Care Team (Late st Contact Info) Description 11/17/[address] [facility] Medicine Specialties [address], [address] [place] [address] Provider, [address] [address] Social History Tobacco Use Types [...] Description 02/09/2025 8:30 AM EST Appointment [facility] Ultrasound [address], [address]nd [place] [address] 02/09/2025 10:00 AM EST Office Visit [facility] Medicine Specialties [address], [address] [place] [address] Jenny Alberto MD [address] [place] [address] 05/06/2025 9:00 AM EST Office Visit [facility] Medicine Specialties [address], [address] [place] [address] Myles Dyer MD [address] [place] [address] documented as of this encounter Procedures Procedure Name Priority Date/Time Associated Diagnosis Comments COMPLETE METABOLIC PROFILE (CMP) Routine 11/17/2024 11:58 AM EDT documented in this encounter Results * COMPLETE METABOLIC PROFILE (CMP) (11/17/2024 11:58 AM EDT) us Historical Provider LAB BLOOD ORDERABLES Final [...] documented as of this encounter Care Teams Food Service Technician Relationship Specialty Start Date End Date Audi Howell DO [address] [place] [address] PCP - General 11/03/24 documented as of this encounter
--- OUTSIDE RECORDS SUMMARY | 2024-11-25 07:14 | XMS_ITS | Encounter Summary ---
Author Organization Healthcare Address [address] [place] [address] Care Team Providers Care Supervisor Name Role Phone Luis Lawson MD Primary Care Provider [phone] Audi Howell DO Primary Care Provider [phone] Reason for Referral * Genetic Testing (Routine) - Authorized Specialty Diagnoses / Procedures Referred By Contac t Referred To Contact Diagnoses Autoimmune hepatitis (CMS/HCC) Procedures IgG IgG Bjorn Cano MD [address] [address] Phone: tel: fax: Referral ID Status Reason Start Date Expiration Date V isits Requested Visits Authorized [id number] Authorized 09/22/2024 03/24/2026 1 1 Encounter Details Date Type Department Care Team (Late st Contact Info) Description 09/22/2024 Results [facility] Medicine Specialties [address], [address] [place] [address] Bjorn Cano MD [address] [facility] [address] [place] [address] Social History Tobacco Use Types [...] Patient does not drink 11/03/2024 8:42 AM JAREDT Di Kidd Q3: How often do you have six or more drinks on one occasion? Never 11/03/2024 8:42 AM JAREDT Di Kidd * Over the past 2 weeks, how often have you been bothered by any of the following problems? Question Answer Date of Assessment Author Little interest or pleasure in doing things Not at all 11/05/2024 8:55 AM Rina Rajan Feeling down, depressed, or hopeless Not at all 11/05/2024 8:55 AM JAREDT Rina Graff Patient Health Questionnaire -2 Score 0 11/05/2024 8:55 AM JAREDT Rina Graff * Question Answer Date of Assessment Author Trouble falling or staying asleep, or sleeping too much Not at all 11/03/2024 8:42 AM Di Elena Feeling tired or having edyta le energy Not at all 11/03/2024 8:42 AM Di Elena Poor appetite or overeating Not at all 11/03/2024 8: 42 AM Di Elena L Feeling bad about yourself - or that [...] 11/03/2024 8:42 AM EDT Di Kidd * If you checked off any problems [...] [facility] Ul[facility] [address], [address]nd [place] [address] 02/09/2025 10:00 AM EST Office Visit [facility] Medicine Specialties [address], [address] [place] [address] Jenny Alberto MD [address] [place] [address] 05/06/2025 9:00 AM EST Office Visit [facility] Medicine Specialties [address], [address] [place] [address] Myles Dyer MD [address] [place] [address] documented as of this encounter Results * Protime-INR (11/03/2024 10:14 AM EDT) Prothrombin Time 13.7 12.0 - 14.3 sec LAB COAGULATION METHOD 11/03/2024 11:54 AM EDT [facility] INR 1.0 0.9 - 1.1 LAB COAGULATION METHOD 11/03/2024 11:54 AM EDT [facility] Blood Venous blood specimen / Unknown Venipuncture / Unknown 11/03/2024 10:14 AM EDT 11/03/2024 10:14 AM EDT Narrative [facility] - 11/03/2024 11:54 AM [...] [facility] [address] [place] [address] * Comprehensive metabolic panel (10/13/2024 7:56 AM EDT) Blood Venous blood specimen / Unknown us Bjorn Cano MD LAB BLOOD ORDERABLES Final Resul t Performing Organization Address [facility] Co de Phone Number EXTERNAL LAB * CBC and differential (10/13/2024 7:56 AM EDT) Blood Venous blood specimen / Unknown us Bjorn Cano MD LAB BLOOD ORDERABLES Final Resul t Performing Organization Address [facility] Co de Phone Number EXTERNAL LAB * IgG (10/13/2024 7:56 AM EDT) Blood Venous blood specimen / Unknown us Bjorn Cano MD LAB BLOOD ORDERABLES Final Resul t Performing Organization Address [facility] Co de Phone Number EXTERNAL LAB [...] as of this encounter Care Teams Supervisor Relationship Specialty Start Date End Date Luis Lawson MD [address] [place] [address] [place] [address] PCP - General 02/25/24 11/02/24 Audi Howell DO [address] [place] [address] [address] [id number] PCP - General 11/03/24 documented as of this encounter
--- OUTSIDE RECORDS SUMMARY | 2024-11-25 07:14 | XMS_ITS | Encounter Summary ---
Author Organization Healthcare Address [address] [place] [address] Care Team Providers Care Steel Plate Caulker Name Role Phone Luis Lawson MD Primary Care Provider [phone] Encounter Details Date Type Department Care Team (Late st Contact Info) Description 09/01/2024 Telephone [facility] Medicine Specialties [address], [address] [place] [address] Caroline Tsang, RN Social History Tobacco Use [...] get labs around 10/24/24 Fax orders to [facility] Requested ER notes * Telephone [...] AM EDT Uploaded IgG CMP CBC Per [facility], no PT/INR drawn Requested AFP [...] to the following: Comprehensive Metabolic Panel, Plasma [[id number]] on 08/29/2024 documented in this encounter Plan of Treatment Upcoming Encounters Date Type Department Care Team (Late st Contact Info) Description 02/09/2025 8:30 AM EST Appointment [facility] Ultrasound [address], 2nd [place] [address] 02/09/2025 10:00 AM EST Office Visit [facility] Medicine Specialties [address], [address] [place] [address] Jenny Alberto MD [address] [place] [address] 05/06/2025 9:00 AM EST Office Visit [facility] Medicine Specialties [address], [address] [place] [address] Myles Dyer MD [address] [place] [address] documented as of this encounter [...] documented as of this encounter Care Teams Steel Plate Caulker Relationship Specialty Start Date End Date Luis Lawson MD [address] [place] [address] PCP - General 02/25/24 11/02/24 documented as of this encounter
[2024-11-25 07:25] LABS: Microscopic, Urine URINE MICROSCOPIC (MICROSCOPIC)
[2024-11-25 08:11] LABS: Bilirubin,Urine Negative (Negative); Color,Urine YELLOW (Yellow); Glucose,Urine (UA) Negative (Negative); Ketones,Urine Negative (Negative); Leukocyte Esterase,Urine Negative (Negative); PH,Urine 5.5 (5.0-8.5); Protein,Urine Negative (Negative); Specific Gravity, Urine 1.025 (1.005-1.030); Urobilinogen,Urine 0.2 EU/dl (0.2)
[2024-11-25 08:59] LABS: Bacteria,Urine 2+ /lpf
[2024-11-25 09:02] LABS: Mucus,Urine Trace /lpf
[2024-11-26 14:12] LABS: Beta-2 Glycoprotein I Ab, IgA <9 (0-25); Beta-2 Glycoprotein I Ab, IgG <9 (0-20); Beta-2 Glycoprotein I Ab, IgM <9 (0-32)
[2024-11-26 15:13] LABS: RPR W/RFX Titers Nonreactive (Nonreactive)
[2024-11-26 15:17] LABS: Anti-Cardio Antibody IgM 10 MPL U/mL (0-12); Anti-Cardiolipin Antibody IgG <9 GPL U/mL (0-14); Anticardiolipin Ab,IgA,Qn <9 APL U/mL (0-11)
== END 2024-11-25 23:59 | disposition home or self-care (01) ==
LOC: LAB 07:11
PROVIDERS: PCP Internal Medicine; Visit Provider Internal Medicine
DX: K75.4 Autoimmune hepatitis (principal); M32.9 Systemic lupus erythematosus, unspecified; K74.60 Unspecified cirrhosis of liver; R76.0 Raised antibody titer
CPT/HCPCS: 36415; 81001; 82570; 84156; 85597; 85598; 85610; 85613; 85670; 85730; 86146; 86147; 86592; 87086

== ENCOUNTER 2024-12-01 07:12 | Outpatient (CLI) | payer MEDICARE, SELFPAY ==
--- OUTSIDE RECORDS SUMMARY | 2024-07-14 09:00 | XMS_ITS | Encounter Summary ---
Author Organization [facility] Address [address] [id number] Care Team Providers Care Show Jumping Instructor Name Role Phone Luis Lawson MD Primary Care Provider [phone] Reason for Referral * Genetic Testing (Routine) - Authorized Specialty Diagnoses / Procedures Referred By Contac t Referred To Contact Lab Diagnoses Autoimmune hepatitis (CMS/HCC) Procedures IgG, Plasma Jenny Alberto MD [address] [address] Phone: tel: fax: Referral ID Status Reason Start Date Expiration Date V isits Requested Visits Authorized [id number] Authorized 07/14/2024 01/13/2026 1 1 * Consultation (Routine) - Closed Specialty Diagnoses / Procedures Referred By Contac t Referred To Contact Diagnoses Autoimmune hepatitis (CMS/HCC) Nausea Jenny Alberto MD [address] [address] Phone: tel: fax: Referral ID Status Reason Start Date Expiration Date Visits Re quested Visits Authorized [id number] Closed 07/14/2024 01/13/2026 1 1 * Genetic Testing (Routine) - Closed Specialty Diagnoses / Procedures Referred By Contac t Referred To Contact Lab Diagnoses Autoimmune hepatitis (CMS/HCC) Procedures IgG, Plasma Jenny Alberto MD [address] [facility] [address] [place] [address] Phone: tel: fax: Referral ID Status Reason Start Date Expiration Date Visits Re quested Visits Authorized [id number] Closed 07/14/2024 01/13/2026 1 1 Reason for Visit * Reason Comments Nausea and vomiting, unspecified vomitin g type Autoimmune hepatitis (CMS/HCC) Encounter Details Date Type Department Care Team (Late st Contact Info) Description 07/14/2024 9:00 AM EDT Office Visit [facility] [address] [place] [address] Jenny Alberto MD [address] [facility] [address] [place] [address] Autoimmune hepatitis (CMS/HCC) (Primary Dx); Nausea; Other specified hypothyroidism; 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 He has been off azathioprine for 2 weeks EGD- I reviewed report of EGD done by Dr. 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 Cabezas [...] Info) Description 02/09/2025 8:30 AM EST Appointment [facility] Ultrasound [address] [place] [address] 02/09/2025 10:00 AM EST Office Visit [facility] [address] [place] [id number] Jenny Alberto MD [address] [place] [phone] 05/06/2025 9:00 AM EST Office Visit [facility] [address] [place] [address] Myles Dyer MD [address] [place] [phone] Scheduled Orders Name Type Priority Associated Diagnoses [...] - 4.20 uIU/mL 07/14/2024 11:[address] [facility] Blood Venous blood specimen / Unknown Venipuncture / Unknown 07/14/2024 10:01 AM EDT 07/14/2024 10:01 AM EDT us Jenny Alberto MD LAB BLOOD ORDERABLES Final Result [facility] [address] [place] [address] * IgG, Plasma (07/14/2024 10:01 AM EDT) IGG 1,222 720 - 1,589 mg/dL 07/14/2024 11:[address] [facility] Blood Venous blood specimen / Unknown Venipuncture / Unknown 07/14/2024 10:01 AM EDT 07/14/2024 10:01 AM EDT us Jenny Alberto MD LAB BLOOD ORDERABLES Final Result Performing Organization Address [facility]/ZIP Co de Phone Number [facility] [address] [place] [address] * (ABNORMAL) Comprehensive metabolic panel (07/14/2024 10:01 AM EDT) Glucose, Plasma 102(H) 74 - 99 mg/dL 07/14/2024 11:[address] [facility] BUN, Plasma 16 8 - 23 mg/dL 07/14/2024 11:[address] [facility] Creatinine, Plasma 0.81 0.70 - 1.20 mg/dL 07/14/2024 11:[address] [facility] BUN/Creatinine Ratio 20 07/14/2024 11:[address] [facility] Sodium, Plasma 142 136 - 145 mmol/L 07/14/2024 11:[address] [facility] Potassium, Plasma 4.0 3.6 - 4.9 mmol/L 07/14/2024 11:[address] [facility] Chloride, Plasma 106 97 - 107 mmol/L 07/14/2024 11:[address] [facility] CO2, Plasma 25 22 - 29 mmol/L 07/14/2024 11:[address] [facility] Anion Gap 11 6 - 16 mmol/L 07/14/2024 11:[address] [facility] Total Calcium, Plasma 9.6 8.9 - 10.2 mg/dL 07/14/2024 11:[address] [facility] Total Protein 7.1 6.3 - 7.9 g/dL 07/14/2024 11:[address] [facility] Albumin, Plasma 4.1 3.5 - 5.2 g/dL 07/14/2024 11:[address] [facility] AST, Plasma 30 10 - 50 U/L 07/14/2024 11:[address] [facility] ALT, Plasma 36 10 - 50 U/L 07/14/2024 11:[address] [facility] Alkaline Phosphatase, Plasma 79 40 - 115 U/L 07/14/2024 11:[address] [facility] Total Bilirubin, Plasma 0.6 0.2 - 1.1 mg/dL 07/14/2024 11:[address] [facility] eGFRcr 91.9 mL/min/1.7 3m*2 07/14/2024 11:[address] [facility] Comment:Reported eGFRcr in m L/min/1.73m2 is based the CKD-EPI 2020 equation that does not use a race coefficient. Blood Venous blood specimen / Unknown Venipuncture / Unknown 07/14/2024 10:01 AM EDT 07/14/2024 10:01 AM EDT us Jenny Alberto MD LAB BLOOD ORDERABLES Final Result Performing Organization Address City/State/[facility] Co de Phone Number 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
--- OUTSIDE RECORDS SUMMARY | 2024-11-03 08:40 | XMS_ITS | Encounter Summary ---
Author Organization [facility] Address [address] [place] [address] Care Team Providers Care Returns Clerk Name Role Phone Dante Audi Serafin RODRIGUEZ Primary Care Provider Reason for Referral * Consultation (Routine) - Authorized Specialty Diagnoses / Procedures Referred By Contac t Referred To Contact Diagnoses Autoimmune hepatitis (CMS/HCC) Bjorn Cano MD [address] [address] Phone: tel: fax: Referral ID Status Reason Start Date Expiration Date V isits Requested Visits Authorized [id number] Authorized 11/03/2024 05/05/2026 1 1 * Genetic Testing (Routine) - Closed Specialty Diagnoses / Procedures Referred By Contac t Referred To Contact Lab Diagnoses Autoimmune hepatitis (CMS/HCC) Procedures IgG Bjorn Cano MD [address] [address] Phone: tel: fax: Referral ID Status Reason Start Date Expiration Date Visits Re quested Visits Authorized [id number] Closed 11/03/2024 05/05/2026 1 1 Reason for Visit * Reason Comments Follow-up * Consultation (Routine) - Closed Specialty Diagnoses / Procedures Referred By Contac t Referred To Contact Diagnoses Autoimmune hepatitis (CMS/HCC) Other cirrhosis of liver (CMS/HCC) Bjorn Cano MD [address] [facility] [address] [place] [address] Phone: tel: fax: Referral ID Status Reason Start Date Expiration Date Visits Re quested Visits Authorized [id number] Closed 09/22/2024 03/24/2026 1 1 Encounter Details Date Type Department Care Team (Late st Contact Info) Description 11/03/2024 8:40 AM EDT Office [facility] [address] [place] [address] Jenny Alberto MD [address] [facility] [address] [place] [address] Autoimmune hepatitis (CMS/HCC) (Primary Dx); [...] Not at all 11/03/2024 8:42 AM EDT i[facility]ios Thoughts that you would be better [...] EGD: Completed 06/02/[address] Vargas at [place]. No EV. PHG with reactive gastropathy. The [...] Last EGD 06/02/[address] Vargas at [place]. No EV. PHG with reactive gastropathy. - [...] Info) Description 02/09/2025 8:30 AM EST Appointment [facility] Ultrasound [address] [place] [address] 02/09/2025 10:00 AM EST Office Visit [facility] Medicine Specialties [address] [place] [address] Jenny Alberto MD [address] [place] [address] 05/06/2025 9:00 AM EST Office [facility] [address] [place] [address] Myles Dyer MD [address] [place] [address] Scheduled Orders Name Type Priority [...] Alpha Fetoprotein, Serum (11/03/2024 10:14 AM EDT) [facility] Alpha Fetoprotein, Serum <2.3 <10.0 ng/mL 11/03/2024 12:59 PM EDT [facility] Blood Venous blood specimen / Unknown Venipuncture / Unknown 11/03/2024 10:14 AM EDT 11/03/2024 10:14 AM EDT Narrative [facility] - 11/03/2024 12:59 PM EDT Performed by Butch electrochemiluminescent immunoassay which is traceable to the 1st AFP IRP WHO Reference standard 72/255. Results obtained with different test methods or kits cannot be used interchangeably. us Bjorn Cano MD LAB BLOOD ORDERABLES Final Resul t [facility] [address] [place] [address] * IgG (11/03/2024 10:14 AM EDT) IGG 1,379 720 - 1,589 mg/dL 11/03/2024 11:31 AM EDT [facility] Blood Venous blood specimen / Unknown Venipuncture / Unknown 11/03/2024 10:14 AM EDT 11/03/2024 10:14 AM EDT us Bjorn Cano MD LAB BLOOD ORDERABLES Final Resul t [facility] [address] [place] [address] * (ABNORMAL) Comprehensive metabolic panel (11/03/2024 10:14 AM EDT) Glucose, Plasma 127(H) 74 - 99 mg/dL 11/03/2024 11:31 AM EDT [facility] BUN, Plasma 21 8 - 23 mg/dL 11/03/2024 11:31 AM EDT [facility] Creatinine, Plasma 0.92 0.70 - 1.20 mg/dL 11/03/2024 11:31 AM EDT [facility] BUN/Creatinine Ratio 23 11/03/2024 11:31 AM EDT [facility] Sodium, Plasma 141 136 - 145 mmol/L 11/03/2024 11:31 AM EDT [facility] Potassium, Plasma 4.5 3.6 - 4.9 mmol/L 11/03/2024 11:31 AM EDT [facility] Chloride, Plasma 104 97 - 107 mmol/L 11/03/2024 11:31 AM EDT [facility] CO2, Plasma 25 22 - 29 mmol/L 11/03/2024 11:31 AM EDT [facility] Anion Gap 12 6 - 16 mmol/L 11/03/2024 11:31 AM EDT [facility] Total Calcium, Plasma 9.6 8.9 - 10.2 mg/dL 11/03/2024 11:31 AM EDT [facility] Total Protein 7.2 6.3 - 7.9 g/dL 11/03/2024 11:31 AM EDT [facility] Albumin, Plasma 4.4 3.5 - 5.2 g/dL 11/03/2024 11:31 AM EDT [facility] AST, Plasma 93(H) 10 - 50 U/L 11/03/2024 11:31 AM EDT [facility] ALT, Plasma 121(H) 10 - 50 U/L 11/03/2024 11:31 AM EDT [facility] Alkaline Phosphatase, Plasma 76 40 - 115 U/L 11/03/2024 11:31 AM EDT [facility] Total Bilirubin, Plasma 0.6 0.2 - 1.1 mg/dL 11/03/2024 11:31 AM EDT [facility] eGFRcr 86.2 mL/min/1.7 3m*2 11/03/2024 11:31 AM EDT [facility] Comment:Reported eGFRcr in m L/min/1.73m2 is based the CKD-EPI 2020 equation that does not use a race coefficient. Blood Venous blood specimen / Unknown Venipuncture / Unknown 11/03/2024 10:14 AM EDT 11/03/2024 10:14 AM EDT us Bjorn Cano MD LAB BLOOD ORDERABLES Final Resul t [facility] [address] [place] [address] documented in this encounter Visit Diagnoses Diagnosis [...] documented as of this encounter Care Teams Returns Clerk Relationship Specialty Start Date End Date Audi Howell DO [address] [place] [address] [place] [address] PCP - General 11/03/24 documented as of this encounter
--- OUTSIDE RECORDS SUMMARY | 2024-11-05 09:00 | XMS_ITS | Encounter Summary ---
Author Organization Healthcare Address [address] [place] [address] Care Team Providers Care Grain Shipper Name Role Phone Audi Howell Primary Care Provider [phone] Reason for Visit * Reason Comments Follow-up Lupus Encounter Details Date Type Department Care Team (Latest Contact Info) Description 11/05/2024 9:00 AM EDT Office Visit [facility] Medicine Specialties [address] [place] [address] Myles Dyer MD [address] [place] [address] Autoimmune hepatitis (CMS/HCC) (Primary Dx); [...] relate to autoimmune disease. Follow up with automotive fuel injection servicer as scheduled. Blood work and urine test [...] D, et al. Efficacy of rituximab in cydqrghac-mv-qdpiblqkuvdrmodh hepatitis: Results from the [employer] Hep[employer]. JHEP Rep. 2019;1(6):437-445. doi:10.1016/j.jhepr.2019.10.005). Patient will continue to follow Gastroenterology for this issue. Plan; Continue prednisone taper, Myfortic taper, and safety lab screening per gastroenterology ollow up with automotive fuel injection servicer as scheduled. #Elevated GONZALO and DsDNA, suspected [...] Repeat antiphospholipid antibody panel for risk stratification. [facility] Rheumatology follow-up in 6 months. Advise [...] and documenting the encounter. Myles Dyer M.D. Certified Phlebotomist Division of Rheumatology Department of Internal Medicine [facility] documented in this encounter Plan of Treatment Upcoming Encounters Date Type Department Care Team (Late st Contact Info) Description 02/09/2025 8:30 AM EST Appointment [facility] Ultrasound [address] [place] [address] 02/09/2025 10:00 AM EST Office Visit [facility] Medicine Specialties [address] [place] [address] Jenny Alberto MD [address] [facility] [address] [place] [address] 05/06/2025 9:00 AM EST Office Visit [facility] Medicine Specialties [address] [place] [address] Myles Dyer MD [address] [place] [address] Scheduled Orders Name Type Priority Associated Diagnoses Orde r Schedule Anti-DNA antibody, double-stranded Lab Routine Autoimmune hepatitis ([facility]) Systemic lupus erythematosus (SLE) in adult ([facility]) 3 months for 2 Occurrences starting 11/05/2024 until 05/08/2026 C3 complement Lab Routine Systemic lupus erythematosus (SLE) in adult ([facility]) 3 months for 2 Occurrences starting 11/05/2024 until 05/08/2026 C4 complement Lab Routine Systemic lupus erythematosus (SLE) in adult ([facility]) 3 months for 2 Occurrences starting 11/05/2024 until 05/08/2026 CBC and differential Lab Routine Systemic lupus erythematosus (SLE) in adult ([facility]) 3 months for 2 Occurrences starting 11/05/2024 until 05/08/2026 Comprehensive metabolic panel Lab Routine Systemic lupus erythematosus (SLE) in adult ([facility]) 3 months for 2 Occurrences starting 11/05/2024 until 05/08/2026 C-reactive protein Lab Routine Systemic lupus erythematosus (SLE) in adult ([facility]) 3 months for 2 Occurrences starting 11/05/2024 until 05/08/2026 Sedimentation Rate, Automated Lab Routine Systemic lupus erythematosus (SLE) in adult ([facility]) 3 months for 2 Occurrences starting 11/05/2024 until 05/08/2026 Urinalysis with reflex microscopic (Culture NOT Included) Lab Routine Systemic lupus erythematosus (SLE) in adult ([facility]) 3 months for 2 Occurrences starting 11/05/2024 until 05/08/2026 Protein, Random, Urine with Creatinine Lab Routine Systemic lupus erythematosus (SLE) in adult ([facility]) 3 months for 2 Occurrences starting 11/05/2024 [...] with Creatinine (11/05/2024 10:04 AM EDT) Pathologist [facility] Protein, Urine <6 mg/dL 11/05/2024 11:41 AM EDT [facility] Creatinine, Urine 25 mg/dL 11/05/2024 11:41 AM EDT [facility] Protein/Creatin ine Ratio 11/05/2024 11:41 AM EDT [facility] Urine Urine specimen obtained by clean catch procedure / Unknown Non-blood Collection / Unknown 11/05/2024 10:04 AM EDT 11/05/2024 10:04 AM EDT us Myles Dyer MD LAB URINE ORDERABLES Final Res ult [facility] [address] [place] [address] * (ABNORMAL) Urinalysis with reflex microscopic (Culture NOT Included) (11/05/2024 10:04 AM EDT) Color, Urine Yellow LAB URINALYSIS - AUTOMATED METHOD 11/05/2024 11:12 AM EDT [facility] Clarity, Urine Clear LAB URINALYSIS - AUTOMATED METHOD 11/05/2024 11:12 AM EDT [facility] Spec [place], Urine 1.009 1.005 - 1.030 LAB URINALYSIS - AUTOMATED METHOD 11/05/2024 11:12 AM EDT [facility] pH, Urine 7.5 5.0 - 8.0 LAB URINALYSIS - AUTOMATED METHOD 11/05/2024 11:12 AM EDT [facility] Protein, Urine Negative Negative mg/dL LAB URINALYSIS - AUTOMATED METHOD 11/05/2024 11:12 AM EDT [facility] Glucose, Urine Negative Negative mg/dL LAB URINALYSIS - AUTOMATED METHOD 11/05/2024 11:12 AM EDT [facility] Ketones, Urine Negative Negative mg/dL LAB URINALYSIS - AUTOMATED METHOD 11/05/2024 11:12 AM EDT [facility] Blood, Urine Negative Negative LAB URINALYSIS - AUTOMATED METHOD 11/05/2024 11:12 AM EDT [facility] Bilirubin, Urine Negative Negative LAB URINALYSIS - AUTOMATED METHOD 11/05/2024 11:12 AM EDT [facility] Urobilinogen, Urine 0.2 0.2 to 1.0 mg/dL LAB URINALYSIS - AUTOMATED METHOD 11/05/2024 11:12 AM EDT [facility] Leukocytes, Urine Small(A) Negative LAB URINALYSIS - AUTOMATED METHOD 11/05/2024 11:12 AM EDT [facility] Nitrite, Urine Negative Negative LAB URINALYSIS - AUTOMATED METHOD 11/05/2024 11:12 AM EDT [facility] RBC, Urine <1 0 to 3 /HPF LAB URINALYSIS - AUTOMATED METHOD 11/05/2024 11:12 AM EDT [facility] WBC, Urine 6 - 10(A) 0 to 5 /HPF LAB URINALYSIS - AUTOMATED METHOD 11/05/2024 11:12 AM EDT [facility] Squamous Epithelial Cells 0 - 2 0 to 5 /HPF LAB URINALYSIS - AUTOMATED METHOD 11/05/2024 11:12 AM EDT [facility] Hyaline Casts 0 - 2 0 to 5 /LPF LAB URINALYSIS - AUTOMATED METHOD 11/05/2024 11:12 AM EDT [facility] Bacteria, Urine Negative Negative LAB URINALYSIS - AUTOMATED METHOD 11/05/2024 11:12 AM EDT [facility] Urine Urine specimen obtained by clean catch procedure / Unknown Non-blood Collection / Unknown 11/05/2024 10:04 AM EDT 11/05/2024 10:04 AM EDT us Myles Dyer MD LAB URINE ORDERABLES Final Res ult [facility] [address] [place] [address] documented in this encounter Visit Diagnoses Diagnosis [...] documented as of this encounter Care Teams Grain Shipper Relationship Specialty Start Date End Date Audi Howell DO [address] [place] [address] [place] [id number] PCP - General 11/03/24 documented as of this encounter
--- OUTSIDE RECORDS SUMMARY | 2024-12-01 07:15 | XMS_ITS | Encounter Summary ---
Author Organization Healthcare Address [address] [place] [address] Care Team Providers Care Grid Trimmer Name Role Phone Audi Howell Primary Care Provider Encounter Details Date Type [...] EST Appointment [facility] Ultrasound [address], [address]nd [place] [address] 02/09/2025 10:00 AM EST Office Visit [facility] Medicine Specialties [address], [address] [place] [address] Jenny Alberto MD [address] [place] [address] 05/06/2025 9:00 AM EST Office Visit [facility] Medicine Specialties [address], [address] [place] [address] Myles Dyer MD [address] [place] [address] documented as of this encounter [...] documented as of this encounter Care Teams Grid Trimmer Relationship Specialty Start Date End Date Audi Howell, [address] [place] [address] PCP - General 11/03/24 documented as of this encounter
--- OUTSIDE RECORDS SUMMARY | 2024-12-01 07:15 | XMS_ITS | Encounter Summary ---
Author Organization Healthcare Address [address] [place] [place] [address] Care Team Providers Care Clean Up Worker Name Role Phone Luis Lawson MD Primary Care Provider [phone] Encounter Details Date Type Department Care Team (Late st Contact Info) Description 10/22/2024 Orders Only [facility] Medicine Specialties [address], [address]nd [place] [address] Caroline Tsang, RN Autoimmune hepatitis [...] Description 02/09/2025 8:30 AM EST Appointment [facility] Ultrasound [address], [address]nd [place] [address] 02/09/2025 10:00 AM EST Office Visit [facility] Medicine Specialties [address], [address] [place] [address] Jenny Alberto MD [address] [place] [address] 05/06/2025 9:00 AM EST Office Visit [facility] Medicine Specialties [address], [address] [place] [address] Myles Dyer MD [address] [place] [address] documented as of this encounter [...] documented as of this encounter Care Teams Clean Up Worker Relationship Specialty Start Date End Date Luis Lawson MD [address] [place] [address] PCP - General 02/25/24 11/02/24 documented as of this encounter
--- OUTSIDE RECORDS SUMMARY | 2024-12-01 07:15 | XMS_ITS | Encounter Summary ---
Author Organization Healthcare Address [address] [place] [place] [address] Care Team Providers Care Lime Kiln And Recausticizing Operator Name Role Phone Luis Lawson MD Primary Care Provider [phone] Encounter Details Date Type Department Care Team (Late st Contact Info) Description 10/24/2024 Orders Only [facility] Medicine Specialties [address], [address]nd [place] [address] Jenny Alberto MD [address] [facility] [address] [place] [address] Social History Tobacco Use Types [...] 8:30 AM EST Appointment [facility] Ultrasound [address], [address]nd [place] [address] 02/09/2025 10:00 AM EST Office Visit [facility] Medicine Specialties [address], [address]nd [place] [address] Jenny Alberto MD [address] [place] [address] 05/06/2025 9:00 AM EST Office Visit [facility] Medicine Specialties [address], [address] [place] [address] Myles Dyer MD [address] [place] [address] documented as of this encounter Procedures Procedure [...] documented as of this encounter Care Teams Lime Kiln And Recausticizing Operator Relationship Specialty Start Date End Date Luis Lawson MD [address] [place] [address] [place] [address] PCP - General 02/25/24 11/02/24 documented as of this encounter
--- OUTSIDE RECORDS SUMMARY | 2024-12-01 07:15 | XMS_ITS | Encounter Summary ---
Author Organization Healthcare Address [address] [place] [address] Care Team Providers Care Envelope Addresser Name Role Phone Field, [employer] Primary Care Provider [phone] Luis Lawson MD Primary Care Provider [phone] Audi Howell DO Primary Care Provider Encounter Details Date Type Department Care Team (Late st Contact Info) Description 01/23/2024 Lab Requisition [facility] [address] [place] [address] Jenny Alberto MD [address] [place] [address] Elevation of levels of liver [...] 8:30 AM EST Appointment [facility] Ultrasound [address], 2nd [place] [address] 02/09/2025 10:00 AM EST Office Visit [facility] Medicine Specialties [address], 2nd [place] [address] Jenny Alberto MD [address] [facility] [address] [place] [address] 05/06/2025 9:00 AM EST Office Visit [facility] Medicine Specialties [address], 2nd [place] [address] Myles Dyer MD [address] [place] [address] documented as of this encounter Procedures Procedure Name Priority Date/Time Associated Diagnosis Comments SURGICAL PATHOLOGY CONSULT Routine 01/23/2024 1:42 PM EST Elevation of levels of liver transaminase levels documented in this encounter Results * Surgical Pathology Consult (01/23/2024 1:42 PM EST) Case Report Sugical Pathology Consult Case: [id number] Authorizing Provider: Jenny Alberto MD Collected: 01/23/2024 1342 Ordering Location: [facility] Lab Received: 01/23/2024 1342 Pathologist: Nasra Nava MD Specimen: Liver, [id number] 01/24/2024 4:41 PM EST [facility] Final Diagnosis LIVER, NEEDLE CORE BIOPSY ([id number]; 08/15/2023): - CLINICOPATHOLOGIC FINDINGS CONSISTENT WITH AUTOIMMUNE HEPATITIS WITH STAGE 4 FIBROSIS (SEE COMMENT). 01/24/2024 4:41 PM EST [facility] at 1641 EST Comment [...] correlation is recommended. 01/24/2024 4:41 PM EST [facility] Clinical Information R74.01 - Elevation of levels of liver transaminase levels [ICD-10-CM] 01/24/2024 4:41 PM EST [facility] Gross Description A. [id number] Received along with a corresponding pathology report from [facility] are 3 slides labeled outside case: [id number] collected on 08/15/2023. 01/24/2024 4:41 PM EST [facility] Note: A resident was involved in the service. I attest I examined the relevant preparations for the specimens and confirmed the diagnosis or interpretation. 01/24/2024 4:41 PM EST [facility] Tissue Liver structure / Unknown 01/23/2024 1:42 PM EST 01/23/2024 1:42 PM EST us Jenny Alberto MD LAB PATHOLOGY ORDERABLES F inal Result [facility] [address] [place] [address] documented in this encounter Visit Diagnoses Diagnosis [...] documented as of this encounter Care Teams Envelope Addresser Relationship Specialty Start Date End Date Vita Reid APRN [address] [place] [address] PCP - General 07/23/20 02/24/24 Luis Lawson MD [address] [place] [address] [place] [address] PCP - General 02/25/24 11/02/24 Audi Howell DO [address] [place] [address] [address] [place] [address] PCP - General 11/03/24 documented as of this encounter
--- OUTSIDE RECORDS SUMMARY | 2024-12-01 07:15 | XMS_ITS | Encounter Summary ---
Author Organization Healthcare Address [address] [place] [address] Care Team Providers Care Can Marker Name Role Phone Audi Howell Primary Care Provider [phone] Encounter Details Date Type Department Care Team (Late st Contact Info) Description 11/20/2024 Orders Only [facility] Medicine Specialties [address], [address] [place] [address] Provider, [address] [address] Social History Tobacco Use Types [...] Info) Description 02/09/2025 8:30 AM EST Appointment [facility] Ultrasound [address], [address]nd [place] [address] 02/09/2025 10:00 AM EST Office Visit [facility] Medicine Specialties [address], [address] [place] [address] Jenny Alberto MD [address] [place] [address] 05/06/2025 9:00 AM EST Office Visit [facility] Specialties [address], [address] [place] [address] Myles Dyer MD [address] [facility] [address] [place] [address] documented as of this encounter [...] documented as of this encounter Care Teams Can Marker Relationship Specialty Start Date End Date Audi Howell, [address] [place] [address] PCP - General 11/03/24 documented as of this encounter
--- OUTSIDE RECORDS SUMMARY | 2024-12-01 07:15 | XMS_ITS | Encounter Summary ---
Author Organization Healthcare Address [address] [place] [place] [address] Care Team Providers Care Child Health Associate Name Role Phone Luis Lawson MD Primary Care Provider [phone] Encounter Details Date Type Department Care Team (Late st Contact Info) Description 10/13/2024 Orders Only [facility] Medicine Specialties [address], [address]nd [place] [address] Lori Levi, RN MEDICINE SPECIALTIES [...] Info) Description 02/09/2025 8:30 AM EST Appointment [facility] Ultrasound [address], [address]nd [place] [address] 02/09/2025 10:00 AM EST Office Visit [facility] Medicine Specialties [address], [address] [place] [address] Jenny Alberto MD [address] [place] [address] 05/06/2025 9:00 AM EST [facility] Medicine [facility]ties [address], [address] [place] [address] Myles Dyer MD [address] [place] [address] documented as of this encounter [...] ORDERABLES Final Resul t Performing Organization Address [facility] Co de Phone Number EXTERNAL [...] documented as of this encounter Care Teams Child Health Associate Relationship Specialty Start Date End Date Luis Lawson MD [address] [place] [address] PCP - General 02/25/24 11/02/24 documented as of this encounter
--- OUTSIDE RECORDS SUMMARY | 2024-12-01 07:15 | XMS_ITS | Encounter Summary ---
Author Organization Healthcare Address [address] [place] [place] [address] Care Team Providers Care Gin Pole Operator Name Role Phone Audi Howell Primary Care Provider [phone] Encounter Details Date Type Department Care Team (Late st Contact Info) Description 11/17/2024 Orders Only [facility] Medicine Specialties [address], [address] [place] [address] Provider, [address] [address] Social History Tobacco Use Types [...] Description 02/09/2025 8:[address] [facility] Ultrasound [address], [address]nd [place] [address] 02/09/2025 10:00 AM EST Office Visit [facility] Medicine Specialties [address], [address] [place] [address] Jenny Alberto MD [address] [place] [address] 05/06/2025 9:00 AM EST Office Visit [facility] Medicine Specialties [address], [address] [place] [address] Myles Dyer MD [address] [place] [address] documented as of this encounter [...] documented as of this encounter Care Teams Gin Pole Operator Relationship Specialty Start Date End Date Audi Howell DO [address] [place] [address] [place] [address] PCP - General 11/03/24 documented as of this encounter
--- OUTSIDE RECORDS SUMMARY | 2024-12-01 07:15 | XMS_ITS | Encounter Summary ---
Author Organization Healthcare Address [address] [place] [address] Care Team Providers Care Product Sales Representative Name Role Phone Audi Howell Primary Care Provider [phone] Encounter Details Date Type Department Care Team (Late st Contact Info) Description 11/05/2024 Telephone [facility] Medicine Specialties [address] [place] [address] Lori Levi, RN MEDICINE SPECIALTIES CLINIC Social [...] Telephone Encounter - Lori Levi RN - 11/28/2024 4:08 PM EDT Fax lab orders to [facility] on 12/01, call and remind patient to have them completed end of week * Telephone Encounter - Caroline Tsang RN [...] pls send a CMV PCR order to [facility]? I placed the order. documented in this encounter Plan of Treatment Upcoming Encounters Date Type Department Care Team (Late st Contact Info) Description 02/09/2025 8:30 AM EST Appointment [facility] Ultrasound [address] [place] [address] 02/09/2025 10:00 AM EST Office Visit [facility] Medicine Specialties [address], [address]nd [place] [address] Jenny Alberto MD [address] [place] [address] 05/06/2025 9:00 AM EST Office Visit [facility] Medicine Specialties [address], [address] [place] [address] Myles Dyer MD [address] [place] [address] documented as of this encounter Visit Diagnoses [...] as of this encounter Care Teams Product Sales Representative Relationship Specialty Start Date End Date Audi Howell DO [address] [place] [address] PCP - General 11/03/24 documented as of this encounter
--- OUTSIDE RECORDS SUMMARY | 2024-12-01 07:15 | XMS_ITS | Clinical Summary ---
Author Organization [facility] Address [address] [place] [address] Care Team Providers Care Business Unit Manager Name Role Phone DanteAudi Primary Care Provider Allergies No known active [...] Department Care Team Description 11/20/2024 Orders Only [facility] Medicine Specialties [address], [address] [place] [address] Provider, Historical 11/17/2024 Orders Only [facility] Medicine Specialties [address], [address] [place] [address] Provider, Historical 11/12/2024 Refill [facility] [address] [place] [address] Jenny Alberto MD 11/05/2024 9:00 AM EDT Office Visit [facility] Specialties [address], [address] [place] [address] Myles Dyer MD Autoimmune hepatitis (CMS/HCC) (Primary Dx); High risk medication use; Systemic lupus erythematosus (SLE) in adult (CMS/HCC); Anti-cardiolipin antibody positive; At risk for osteopenia 11/05/2024 Travel 11/05/2024 Telephone [facility]ties [address], [address] [place] [address] Lori Levi RN 11/03/2024 8:40 AM EDT Office Visit [facility] Specialties [address], [address] [place] [address] Jenny Alberto MD Autoimmune hepatitis (CMS/HCC) (Primary Dx); Other cirrhosis of liver (CMS/HCC); Elevated liver enzymes; Current use of steroid medication; Hypertension, unspecified type; Nausea 11/03/2024 Travel 10/24/2024 Orders Only [facility] Medicine [facility]ties [address], [address] [place] [address] Jenny Alberto MD 10/22/2024 Orders Only [facility]ties [address], [address] [place] [address] Caroline Tsang RN Autoimmune hepatitis (CMS/HCC) 10/15/2024 Results Follow-Up [facility] Medicine Specialties [facility] [address], [address] [place] [address] Bjorn Cano MD 10/13/2024 Orders Only [facility]ties [facility] [address], [address] [place] [phone] Lori Levi, RN Autoimmune hepatitis (CMS/HCC) 09/22/2024 10:40 AM EDT Clinical Support [facility] [address] [place] [address], [address] [place] [address] Autoimmune hepatitis (CMS/HCC) 09/22/2024 9:00 AM EDT Office Visit [facility]ties [address] [place] [address], [address] [place] [address] Jenny Alberto MD Autoimmune hepatitis (CMS/HCC) (Primary Dx); Other cirrhosis of liver (CMS/HCC); Nausea; Elevated liver enzymes; High total IgG; History of diverticulitis 09/22/2024 Results Follow-Up [facility] [address] [place] [address], [address] [place] [address] Bjorn Cano MD 09/22/2024 Travel 09/01/2024 Telephone [facility] Specialties [address] [place] [address], [address] [place] [address] Caroline Tsang RN from Last 3 Months Immunizations Immunization Administration [...] 02/09/2025 8:30 AM EST Appointment [facility] Ultrasound [address], [address]nd [place] [address] 02/09/2025 10:00 AM EST Office Visit [facility]ties [address], [address]nd [place] [address] Jenny Alberto MD [address] [place] [address] 05/06/2025 9:00 AM EST Office Visit [facility] Medicine [facility]ties [address], [address] [place] [address] Myles Dyer MD [address] [place] [address] Health Maintenance Due Date Last [...] or (1 - 1-dose 75+ series) 10/11/2023 [id number] Vaccine (7 - Moderna risk 2023- season) [...] 09/22/2024 10:25 AM EDT Autoimmune hepatitis (CMS/HCC) HEPATITIS C ANTIBODY [...] ult [facility] [address] [place] [address] * Protein, Random, Urine with Creatinine (11/05/2024 [...] ult [facility] [address] [place] [address] * (ABNORMAL) Urinalysis with reflex microscopic (Culture NOT Included) (11/05/2024 10:04 AM EDT) Color, Urine Yellow LAB URINALYSIS - AUTOMATED METHOD 11/05/2024 11:12 AM EDT [facility] Clarity, Urine Clear LAB URINALYSIS - AUTOMATED METHOD 11/05/2024 11:12 AM EDT [facility] Spec [place], Urine 1.009 1.005 - 1.030 LAB URINALYSIS [...] ult [facility] [address] [place] [address] * Alpha Fetoprotein, Serum (11/03/2024 10:14 AM EDT) Alpha Fetoprotein, Serum <2.3 <10.0 ng/mL 11/03/2024 12:59 PM EDT [facility] Blood Venous blood specimen / Unknown Venipuncture / Unknown 11/03/2024 10:14 AM EDT 11/03/2024 10:14 AM EDT Narrative [facility] - 11/03/2024 12:59 PM EDT Performed by Butch electrochemiluminescent immunoassay which is traceable to the 1st [facility] WHO Reference standard 72/255. Results obtained with different test methods or kits cannot be used interchangeably. Bjorn Cano MD LAB BLOOD ORDERABLES Final Resul t Performing Organization Address City/[facility] Co de Phone Number [facility] [address] [place] [address] * Protime-INR (11/03/2024 10:14 AM EDT) Only the most recent of2 resultswithin the time period is included. Prothrombin Time 13.7 12.0 - 14.3 sec LAB COAGULATION METHOD 11/03/2024 11:54 AM EDT [facility] INR 1.0 0.9 - 1.1 LAB COAGULATION METHOD 11/03/2024 11:54 AM EDT [facility] Blood Venous blood specimen / Unknown Venipuncture / Unknown 11/03/2024 10:14 AM EDT 11/03/2024 10:14 AM EDT Narrative [facility] - 11/03/2024 11:54 AM [...] ORDERABLES Final Resul t Performing Organization Address [facility] Co de Phone Number [facility] [address] [place] [address] * (ABNORMAL) Comprehensive metabolic panel (11/03/2024 10:14 AM EDT) Only the most recent of3 resultswithin the time period is included. Glucose, Plasma 127(H) 74 - 99 mg/dL 11/03/2024 11:31 AM EDT [facility] BUN, Plasma 21 8 - 23 mg/dL 11/03/2024 11:31 AM EDT [facility] Creatinine, Plasma 0.92 0.70 - 1.20 mg/dL 11/03/2024 11:31 AM EDT [facility] BUN/Creatinine Ratio 23 11/03/2024 11:31 AM EDT [facility] Sodium, Plasma 141 136 - 145 mmol/L 11/03/2024 11:31 AM EDT [facility] Potassium, Plasma 4.5 3.6 - 4.9 mmol/L 11/03/2024 11:31 AM EDT [facility] Chloride, Plasma 104 97 - 107 mmol/L 11/03/2024 11:31 AM EDT [facility] CO2, Plasma 25 22 - 29 mmol/L 11/03/2024 11:31 AM EDT [facility] Anion Gap 12 6 - 16 mmol/L 11/03/2024 11:31 AM EDT [facility] Total Calcium, Plasma 9.6 8.9 - 10.2 mg/dL 11/03/2024 11:31 AM EDT [facility] Total Protein 7.2 6.3 - 7.9 g/dL 11/03/2024 11:31 AM EDT [facility] Albumin, Plasma 4.4 3.5 - 5.2 g/dL 11/03/2024 11:31 AM EDT [facility] AST, Plasma 93(H) 10 - 50 U/L 11/03/2024 11:31 AM EDT [facility] ALT, Plasma 121(H) 10 - 50 U/L 11/03/2024 11:31 AM EDT [facility] Alkaline Phosphatase, Plasma 76 40 - 115 U/L 11/03/2024 11:31 AM EDT [facility] Total Bilirubin, Plasma 0.6 0.2 - 1.1 mg/dL 11/03/2024 11:31 AM EDT [facility] eGFRcr 86.2 mL/min/1.7 3m*2 11/03/2024 11:31 AM EDT [facility] Comment:Reported eGFRcr in m L/min/1.73m2 is based the CKD-EPI 2020 equation that does not use a race coefficient. Blood Venous blood specimen / Unknown Venipuncture / Unknown 11/03/2024 10:14 AM EDT 11/03/2024 10:14 AM EDT Bjorn Cano MD LAB BLOOD ORDERABLES Final Resul t Performing Organization Address City/[facility]/ZIP Co de Phone Number [facility] [address] [place] [address] * CBC and Differential (10/22/2024 3:55 PM EDT) Only the most recent of3 resultswithin the time period is included. Blood Venous blood specimen / Unknown Jenny Alberto MD LAB BLOOD ORDERABLES Final Result EXTERNAL LAB * Hepatitis C antibody (01/21/2024 12:22 PM EST) Hepatitis C Antibody Negative Negative 01/21/2024 3:15 PM EST [facility] Blood Venous blood specimen / Unknown Venipuncture / Unknown 01/21/2024 12:22 PM EST 01/21/2024 12:23 PM EST Jenny Alberto MD LAB BLOOD ORDERABLES Final Result Performing Organization Address City/[facility] Co de Phone Number [facility] [address] [place] [address] from Last 3 Months or Most Recently Relevant to Health Maintenance Insurance MEDICARE Care Teams Business Unit Manager Relationship Specialty Start Date End Date Audi Howell DO [address] [facility] [address] [place] [address] [facility] - General 11/03/24
--- OUTSIDE RECORDS SUMMARY | 2024-12-01 07:15 | XMS_ITS | Encounter Summary ---
Author Organization [facility] Address [address] [place] [address] Care Team Providers Care Sizer Machine Name Role Phone Luis Lawson MD Primary Care Provider [phone] Audi Howell DO Primary Care Provider [phone] Reason for Referral * Genetic Testing (Routine) - Authorized Specialty Diagnoses / Procedures Referred By Contac t Referred To Contact Diagnoses Autoimmune hepatitis (CMS/HCC) Procedures IgG IgG Bjorn Cano MD [address] [address] Phone: tel: fax: Referral ID Status Reason Start Date Expiration Date V isits Requested Visits Authorized [id number] Authorized 09/22/2024 03/24/2026 1 1 Encounter Details Date Type Department Care Team (Late st Contact Info) Description 09/22/2024 Results Follow-Up [facility] [address], [address]nd [place] [address] Bjorn Cano MD [address] [facility] [address] [place] [address] Social History Tobacco Use Types [...] 11/03/2024 8:42 AM EDT Di Kidd * How difficult have these problems made [...] Info) Description 02/09/2025 8:30 AM EST Appointment [facility] Ultrasound [address], [address]nd [place] [address] 02/09/2025 10:00 AM EST Office Visit [facility] Medicine Specialties [address], [address] [place] [address] Jenny Alberto MD [address] [place] [address] 05/06/2025 9:00 AM EST Office Visit [facility] [address], [address] [place] [address] Myles Dyer MD [address] [place] [address] documented as of this encounter Results * Protime-INR (11/03/2024 10:14 AM EDT) Prothrombin Time 13.7 12.0 - 14.3 sec LAB COAGULATION METHOD 11/03/2024 11:54 AM EDT [facility] INR 1.0 0.9 - 1.1 LAB COAGULATION METHOD 11/03/2024 11:54 AM EDT [facility] Blood Venous blood specimen / Unknown Venipuncture / Unknown 11/03/2024 10:14 AM EDT 11/03/2024 10:14 AM EDT Narrative [facility] - 11/03/2024 11:54 AM EDT [...] MD LAB BLOOD ORDERABLES Final Resul t [facility] [address] [place] [address] * Comprehensive metabolic panel (10/13/2024 7:56 AM EDT) Blood Venous blood specimen / Unknown us Bjorn Cano MD LAB BLOOD ORDERABLES Final Resul t Performing Organization Address City/[facility] Co de Phone Number EXTERNAL LAB * CBC and differential (10/13/2024 7:56 AM EDT) Blood Venous blood specimen / Unknown us Bjorn Cano MD LAB BLOOD ORDERABLES Final Resul t Performing Organization Address City/[facility]/ZIP Co de Phone Number EXTERNAL LAB * IgG (10/13/2024 7:56 AM EDT) Blood Venous blood specimen / Unknown us Bjorn Cano MD LAB BLOOD ORDERABLES Final Resul t Performing Organization Address [facility] Co de Phone Number EXTERNAL LAB [...] documented as of this encounter Care Teams Sizer Machine Relationship Specialty Start Date End Date Luis Lawson MD [address] [place] [address] [place] [id number] PCP - General 02/25/24 11/02/24 Audi Howell DO [address] [facility] [address] [place] [address] PCP - General 11/03/24 documented as of this encounter
--- OUTSIDE RECORDS SUMMARY | 2024-12-01 07:15 | XMS_ITS | Encounter Summary ---
Author Organization [facility] Address [address] [place] [address] Care Team Providers Care Telecommunication Tower Technician Name Role Phone Luis Lawson MD Primary Care Provider [phone] Audi Howell DO Primary Care Provider [phone] Encounter Details Date Type Department Care Team (Late st Contact Info) Description 10/15/2024 Results Follow-Up [facility] Medicine Specialties [address], [address] [place] [address] Bjorn Cano MD [address] [place] [address] Social History Tobacco Use Types [...] Appointment [facility] Ultrasound [address], [address] [place] [address] 02/09/2025 10:00 AM EST Office Visit [facility] Medicine Specialties [address], [address] [place] [address] Jenny Alberto MD [address] [place] [address] 05/06/2025 9:00 AM EST Office Visit [facility] Medicine Specialties [address], [address] [place] [address] Myles Dyer MD [address] [facility] [address] [place] [address] documented as of this encounter [...] documented as of this encounter Care Teams Telecommunication Tower Technician Relationship Specialty Start Date End Date Luis Lawson MD [address] [place] [address] [place] [address] PCP - General 02/25/24 11/02/24 Audi Howell DO [address] [place] [address] PCP - General 11/03/24 documented as of this encounter
--- OUTSIDE RECORDS SUMMARY | 2024-12-01 07:15 | XMS_ITS | Encounter Summary ---
Author Organization [facility] Address [address] [place] [address] Care Team Providers Care Veterinary Meat Inspector Name Role Phone DanteAudi Serafin DO Primary Care Provider [phone] Reason for Visit * Reason Onset Date Comments Med Refill 11/12/2024 Encounter Details Date Type Department Care Team (Late st Contact Info) Description 11/12/2024 Refill [facility] [address] [place] [address] Jenny Alberto MD [address] [place] [address] Social History Tobacco Use Types Packs/Day Years [...] Info) Description 02/09/2025 8:30 AM EST Appointment [facility] Ultrasound [address], [address] [place] [address] 02/09/2025 10:00 AM EST Office Visit [facility] Medicine Specialties [address], [address] [place] [address] Jenny Alberto MD [address] [place] [address] 05/06/2025 9:00 AM EST Office Visit [facility] [address], [address] [place] [address] Myles Dyer MD [address] [place] [address] documented as of this encounter [...] documented as of this encounter Care Teams Veterinary Meat Inspector Relationship Specialty Start Date End Date Audi Howell DO [address] [place] [address] PCP - General 11/03/24 documented as of this encounter
--- OUTSIDE RECORDS SUMMARY | 2024-12-01 07:15 | XMS_ITS | Encounter Summary ---
Author Organization Healthcare Address [address] [place] [address] Care Team Providers Care Chair Post Machine Operator Name Role Phone Audi Howell Primary Care Provider [phone] Encounter Details Date Type Department Care Team [...] 02/09/2025 8:30 AM EST Appointment [facility] Ultrasound [address], [address]nd [place] [address] 02/09/2025 10:00 AM EST Office Visit [facility] Medicine Specialties [address], [address] [place] [address] Jenny Alberto MD [address] [place] [address] 05/06/2025 9:00 AM EST Office Visit [facility] Medicine Specialties [address], [address] [place] [address] Myles Dyer MD [address] [place] [address] documented as of this encounter [...] documented as of this encounter Care Teams Chair Post Machine Operator Relationship Specialty Start Date End Date Audi Howell DO [address] [place] [address] PCP - General 11/03/24 documented as of this encounter
--- OUTSIDE RECORDS SUMMARY | 2024-12-01 07:16 | XMS_ITS | Encounter Summary ---
Author Organization Healthcare Address [address] [place] [address] Care Team Providers Care Machine Packager Name Role Phone Luis Lawson MD Primary Care Provider Encounter Details Date Type Department Care Team (Late st Contact Info) Description 09/01/2024 Telephone [facility] Medicine Specialties [address], [address] [place] [address] Caroline Tsang, RN Social History Tobacco Use [...] at all 09/22/2024 9:08 AM JAREDT Harsha Renia Trouble concentrating on thi ngs, such as [...] get labs around 10/24/24 Fax orders to [facility] Requested ER notes * Telephone Encounter [...] AM EDT Uploaded IgG CMP CBC Per [facility], no PT/INR drawn Requested AFP results [...] to the following: Comprehensive Metabolic Panel, Plasma [[id number]] on 08/29/2024 documented in this encounter Plan of Treatment Upcoming Encounters Date Type Department Care Team (Late st Contact Info) Description 02/09/2025 8:30 AM EST Appointment [facility] Ultrasound [address], [address]nd [place] [address] 02/09/2025 10:00 AM EST Office Visit [facility] Medicine Specialties [address], [address] [place] [address] Jenny Alberto MD [address] [facility] [address] [place] [address] 05/06/2025 9:00 AM EST Office Visit [facility] [address], [address] [place] [address] Myles Dyer MD [address] [facility] [address] [place] [address] documented as of this encounter [...] as of this encounter Care Teams Machine Packager Relationship Specialty Start Date End Date Luis Lawson MD [address] [place] [address] PCP - General 02/25/24 11/02/24 documented as of this encounter
--- OUTSIDE RECORDS SUMMARY | 2024-12-01 07:16 | XMS_ITS ---
Laboratory report Created on: November 20, 2024 HERO HOWARD : 1950 Sex: Male Author Organization Unknown PROBLEMS Problems List Code Description RESULTS Laboratory Orders Date Order Code Test 2024-11-17 [id number] IMMUNOGLOBULIN G , QN, SERUM Laboratory Results Date LOINC Test Value Unit Reference Range Interpre tation 2024-11-17 [id number] IMMUNOGLOBULIN G , QN, SERUM 1109 MG/DL [id number]
[2024-12-01 07:38] LABS: Hematocrit 41.9 % (42.0-52.0); Hemoglobin 14.0 g/dL (14.1-18.0); Immature Granulocytes % 0.5 %; Mean Corpuscular HGB Conc 33.4 g/dL (31.8-35.4); Mean Corpuscular Hemoglobin 32.0 pg (27.0-31.2); Mean Corpuscular Volume 95.9 fl (80-94); Nucleated Red Blood Cells % 0 %; Platelet Count 119 K/mm3 (142-424); Red Blood Count 4.37 M/mm3 (4.60-6.20); Red Cell Distribution Width-SD 52.6 fL; White Blood Count 6.0 K/mm3 (4.8-10.8)
[2024-12-01 08:13] LABS: Chloride 103 mmol/L (98-107)
[2024-12-01 08:14] LABS: Albumin Level 4.0 g/dl (3.5-5.0); Potassium 4.1 mmoL/L (3.5-5.1); Sodium 138 mmol/L (136-145)
[2024-12-01 08:16] LABS: Blood Urea Nitrogen 28 mg/dl (9-20); Creatinine,Serum 1.00 mg/dl (0.66-1.25); Estimated Glomerular Filt Rate 73 ml/min (>60); GFR (African American) 88 ML/MIN (>60)
[2024-12-01 08:17] LABS: Alanine Aminotransferase 53 U/L (12-78); Albumin/Globulin Ratio 1.5 (1.1-1.8); Alkaline Phosphatase 54 U/L (38-126); Anion Gap 10.1 mEq/L (5-15); Aspartate Amino Transferase 41 U/L (17-59); Bilirubin,Total 1.1 mg/dl (0.2-1.3); Calcium 9.7 mg/dl (8.4-10.2); Carbon Dioxide 29 mmol/L (22.0-30.0); Globulin 2.7 g/dL (1.3-3.2); Glucose 106 mg/dl (74-100); Total Protein,Serum 6.7 g/dl (6.3-8.2)
[2024-12-02 07:55] LABS: Immunoglobulin G, Qn 1095 mg/dL (603-1613)
== END 2024-12-01 23:59 | disposition home or self-care (01) ==
LOC: LAB 07:13
PROVIDERS: PCP Internal Medicine; Visit Provider Internal Medicine Gastroenterology
DX: K75.4 Autoimmune hepatitis (principal); K74.60 Unspecified cirrhosis of liver
CPT/HCPCS: 36415; 80053; 82784; 85025

== ENCOUNTER 2024-12-05 08:55 | Outpatient (CLI) | payer MEDICARE, SELFPAY ==
--- OUTSIDE RECORDS SUMMARY | 2024-07-14 09:00 | XMS_ITS | Encounter Summary ---
Author Organization [facility] Address [address] [id number] Care Team Providers Care Solar Installation Technician Name Role Phone Luis Lawson MD Primary Care Provider [phone] Reason for Referral * Genetic Testing (Routine) - Authorized Specialty Diagnoses / Procedures Referred By Contac t Referred To Contact Lab Diagnoses Autoimmune hepatitis (CMS/HCC) Procedures IgG, Plasma Jenny Alberto MD [address] [address] Phone: tel: fax: Referral ID Status Reason Start Date Expiration Date V isits Requested Visits Authorized [id number] Authorized 07/14/2024 01/13/2026 1 1 * Consultation (Routine) - Closed Specialty Diagnoses / Procedures Referred By Contac t Referred To Contact Diagnoses Autoimmune hepatitis (CMS/HCC) Nausea Jenny Alberto MD [address] [address] Phone: tel: fax: Referral ID Status Reason Start Date Expiration Date Visits Re quested Visits Authorized [id number] Closed 07/14/2024 01/13/2026 1 1 * Genetic Testing (Routine) - Closed Specialty Diagnoses / Procedures Referred By Contac t Referred To Contact Lab Diagnoses Autoimmune hepatitis (CMS/HCC) Procedures IgG, Plasma Jenny Alberto MD [address] [facility] [address] [place] [address] Phone: tel: fax: Referral ID Status Reason Start Date Expiration Date Visits Re quested Visits Authorized [id number] Closed 07/14/2024 01/13/2026 1 1 Reason for Visit * Reason Comments Nausea and vomiting, unspecified vomitin g type Autoimmune hepatitis (CMS/HCC) Encounter Details Date Type Department Care Team (Late st Contact Info) Description 07/14/2024 9:00 AM EDT Office Visit [facility] Medicine [facility] [address] [place] [address] Jenny Alberto MD [address] [facility] [address] [place] [address] Autoimmune hepatitis (CMS/HCC) (Primary Dx); Nausea; Other specified hypothyroidism; 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 Not at all 09/22/2024 9:08 AM Harsha Brar Thoughts that you would be b meredith off or hurting yourself in some way Not at all 09/22/2024 9:08 AM Harsha Brar Patient Health Questionnaire -9 Score 0 09/22/2024 9:08 AM JAREDT Harsha Reina * How difficult have these problems made it for you to do your work, take care of things at home, or get along with other people? Answer Date of Assessment Author Not difficult at all 09/22/2024 9:08 AM EDT Harsha Santos documented as of this encounter Miscellaneous Notes [...] diverticulitis, in May- went to ER In [facility] 06/05/24 No abd pain,hematochezia Reports improvement of nausea, but still has nausea, thus he stopped azathioprine on his own. He has been off azathioprine for 2 weeks EGD- I reviewed report of EGD done by Dr. Cabezas 06/02/24 at [place]: Normal esophagus PHG- gastric biopsies: reactive gastropathy [...] - TSH Reflex FT4; Future Encounter for snf current use of azathioprine On prednisone therapy [...] has appointment this week with (surgeon in [place]) who will be coordinating with Dr. Cabezas [...] Info) Description 02/09/2025 8:30 AM EST Appointment [facility] Ultrasound [address] [place] [address] 02/09/2025 10:00 AM EST Office Visit [facility] Medicine Specialties [address] [place] [address] Jenny Alberto MD [address] [place] [address] 05/06/2025 9:00 AM EST Office Visit [facility] Medicine Specialties [address] [place] [address] Myles Dyer MD [address] [place] [id number] Scheduled Orders Name Type Priority Associated Diagnoses [...] BLOOD ORDERABLES Final Result EXTERNAL LAB * Comprehensive Metabolic Panel, Plasma (08/29/2024 3:23 PM EDT) Blood Venous blood specimen / Unknown Jenny Alberto MD LAB BLOOD ORDERABLES Final Result EXTERNAL LAB * TSH Reflex FT4 (07/14/2024 10:01 AM EDT) Thyroid Stimulating Hormone, Plasma 2.24 0.40 - 4.20 uIU/mL 07/14/2024 11:20 AM EDT [facility] Blood Venous blood specimen / Unknown Venipuncture / Unknown 07/14/2024 10:01 AM EDT 07/14/2024 10:01 AM EDT us Jenny Alberto MD LAB BLOOD ORDERABLES Final Result [facility] [address] [place] [address] * IgG, Plasma (07/14/2024 10:01 AM EDT) IGG 1,222 720 - 1,589 mg/dL 07/14/2024 11:20 AM EDT [facility] Blood Venous blood specimen / Unknown Venipuncture / Unknown 07/14/2024 10:01 AM EDT 07/14/2024 10:01 AM EDT us Jenny Alberto MD LAB BLOOD ORDERABLES Final Result Performing Organization Address [facility]/ZIP Co de Phone Number [facility] [address] [place] [address] * (ABNORMAL) Comprehensive metabolic panel (07/14/2024 10:01 AM EDT) Glucose, Plasma 102(H) 74 - 99 mg/dL 07/14/2024 11:20 AM EDT [facility] BUN, Plasma 16 8 - 23 mg/dL 07/14/2024 11:20 AM EDT [facility] Creatinine, Plasma 0.81 0.70 - 1.20 mg/dL 07/14/2024 11:20 AM EDT [facility] BUN/Creatinine Ratio 20 07/14/2024 11:20 AM EDT [facility] Sodium, Plasma 142 136 - 145 mmol/L 07/14/2024 11:20 AM EDT [facility] Potassium, Plasma 4.0 3.6 - 4.9 mmol/L 07/14/2024 11:20 AM EDT [facility] Chloride, Plasma 106 97 - 107 mmol/L 07/14/2024 11:20 AM EDT [facility] CO2, Plasma 25 22 - 29 mmol/L 07/14/2024 11:20 AM EDT [facility] Anion Gap 11 6 - 16 mmol/L 07/14/2024 11:20 AM EDT [facility] Total Calcium, Plasma 9.6 8.9 - 10.2 mg/dL 07/14/2024 11:20 AM EDT [facility] Total Protein 7.1 6.3 - 7.9 g/dL 07/14/2024 11:20 AM EDT [facility] Albumin, Plasma 4.1 3.5 - 5.2 g/dL 07/14/2024 11:20 AM EDT [facility] AST, Plasma 30 10 - 50 U/L 07/14/2024 11:20 AM EDT [facility] ALT, Plasma 36 10 - 50 U/L 07/14/2024 11:20 AM EDT [facility] Alkaline Phosphatase, Plasma 79 40 - 115 U/L 07/14/2024 11:20 AM EDT [facility] Total Bilirubin, Plasma 0.6 0.2 - 1.1 mg/dL 07/14/2024 11:20 AM EDT [facility] eGFRcr 91.9 mL/min/1.7 3m*2 07/14/2024 11:20 AM EDT [facility] Comment:Reported eGFRcr in m L/min/1.73m2 is based the CKD-EPI 2020 equation that does not use a race coefficient. 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
--- OUTSIDE RECORDS SUMMARY | 2024-11-03 08:40 | XMS_ITS | Encounter Summary ---
Author Organization [facility] Address [address] [place] [address] Care Team Providers Care Research Chief Engineer Name Role Phone Dante Audi Serafin RODRIGUEZ Primary Care Provider [phone] Reason for Referral * Consultation (Routine) - Authorized Specialty Diagnoses / Procedures Referred By Contac t Referred To Contact Diagnoses Autoimmune hepatitis (CMS/HCC) Bjorn Cano MD [address] [address] Phone: tel: fax: Referral ID Status Reason Start Date Expiration Date V isits Requested Visits Authorized [id number] Authorized 11/03/2024 05/05/2026 1 1 * Genetic Testing (Routine) - Closed Specialty Diagnoses / Procedures Referred By Contac t Referred To Contact Lab Diagnoses Autoimmune hepatitis (CMS/HCC) Procedures IgG Bjorn Cano MD [address] [address] Phone: tel: fax: Referral ID Status Reason Start Date Expiration Date Visits Re quested Visits Authorized [id number] Closed 11/03/2024 05/05/2026 1 1 Reason for Visit * Reason Comments Follow-up * Consultation (Routine) - Closed Specialty Diagnoses / Procedures Referred By Contac t Referred To Contact Diagnoses Autoimmune hepatitis (CMS/HCC) Other cirrhosis of liver (CMS/HCC) Bjorn Cano MD [address] [facility] [address] [place] [address] Phone: tel: fax: Referral ID Status Reason Start Date Expiration Date Visits Re quested Visits Authorized [id number] Closed 09/22/2024 03/24/2026 1 1 Encounter Details Date Type Department Care Team (Late st Contact Info) Description 11/03/2024 8:40 AM EDT Office Visit [facility] [address] [place] [address] Jenny Alberto MD [address] [facility] [address] [place] [address] Autoimmune hepatitis (CMS/HCC) (Primary Dx); [...] * Assessment & Plan Note - Bjorn aCno MD - 11/03/2024 8:40 AM EDTAssociated Problem(s): [...] EGD: Completed 06/02/[address] Vargas at [place]. No EV. PHG with reactive gastropathy. The [...] Last EGD 06/02/[address] Vargas at [place]. No EV. PHG with reactive gastropathy. - [...] Info) Description 02/09/2025 8:30 AM EST Appointment [facility] Ultrasound [address] [place] [address] 02/09/2025 10:00 AM EST Office Visit [facility] [address] [place] [address] Jenny Alberto MD [address] [place] [address] 05/06/2025 9:00 AM EST Office Visit [facility] [address] [place] [address] Myles Dyer MD [address] [place] [address] Scheduled Orders Name Type Priority [...] Alpha Fetoprotein, Serum (11/03/2024 10:14 AM EDT) [facility] Alpha Fetoprotein, Serum <2.3 <10.0 ng/mL 11/03/2024 12:59 PM EDT [facility] Blood Venous blood specimen / Unknown Venipuncture / Unknown 11/03/2024 10:14 AM EDT 11/03/2024 10:14 AM EDT Narrative [facility] - 11/03/2024 12:59 PM EDT Performed by Butch electrochemiluminescent immunoassay which is traceable to the 1st AFP IRP WHO Reference standard 72/255. Results obtained with different test methods or kits cannot be used interchangeably. us Bjorn Cano MD LAB BLOOD ORDERABLES Final Resul t [facility] [address] [place] [address] * IgG (11/03/2024 10:14 AM EDT) IGG 1,379 720 - 1,589 mg/dL 11/03/2024 11:31 AM EDT [facility] Blood Venous blood specimen / Unknown Venipuncture / Unknown 11/03/2024 10:14 AM EDT 11/03/2024 10:14 AM EDT us Bjorn Cano MD LAB BLOOD ORDERABLES Final Resul t [facility] [address] [place] [address] * (ABNORMAL) Comprehensive metabolic panel (11/03/2024 10:14 AM EDT) Glucose, Plasma 127(H) 74 - 99 mg/dL 11/03/2024 11:31 AM EDT [facility] BUN, Plasma 21 8 - 23 mg/dL 11/03/2024 11:31 AM EDT [facility] Creatinine, Plasma 0.92 0.70 - 1.20 mg/dL 11/03/2024 11:31 AM EDT [facility] BUN/Creatinine Ratio 23 11/03/2024 11:31 AM EDT [facility] Sodium, Plasma 141 136 - 145 mmol/L 11/03/2024 11:31 AM EDT [facility] Potassium, Plasma 4.5 3.6 - 4.9 mmol/L 11/03/2024 11:31 AM EDT [facility] Chloride, Plasma 104 97 - 107 mmol/L 11/03/2024 11:31 AM EDT [facility] CO2, Plasma 25 22 - 29 mmol/L 11/03/2024 11:31 AM EDT [facility] Anion Gap 12 6 - 16 mmol/L 11/03/2024 11:31 AM EDT [facility] Total Calcium, Plasma 9.6 8.9 - 10.2 mg/dL 11/03/2024 11:31 AM EDT [facility] Total Protein 7.2 6.3 - 7.9 g/dL 11/03/2024 11:31 AM EDT [facility] Albumin, Plasma 4.4 3.5 - 5.2 g/dL 11/03/2024 11:31 AM EDT [facility] AST, Plasma 93(H) 10 - 50 U/L 11/03/2024 11:31 AM EDT [facility] ALT, Plasma 121(H) 10 - 50 U/L 11/03/2024 11:31 AM EDT [facility] Alkaline Phosphatase, Plasma 76 40 - 115 U/L 11/03/2024 11:31 AM EDT [facility] Total Bilirubin, Plasma 0.6 0.2 - 1.1 mg/dL 11/03/2024 11:31 AM EDT [facility] eGFRcr 86.2 mL/min/1.7 3m*2 11/03/2024 11:31 AM EDT [facility] Comment:Reported eGFRcr in m L/min/1.73m2 is based the CKD-EPI 2020 equation that does not use a race coefficient. Blood Venous blood specimen / Unknown Venipuncture / Unknown 11/03/2024 10:14 AM EDT 11/03/2024 10:14 AM EDT us Bjorn Cano MD LAB BLOOD ORDERABLES Final Resul t [facility] [address] [place] [address] documented in this encounter Visit Diagnoses Diagnosis [...] documented as of this encounter Care Teams Research Chief Engineer Relationship Specialty Start Date End Date Audi Howell DO [address] [place] [address] [place] [id number] PCP - General 11/03/24 documented as of this encounter
--- OUTSIDE RECORDS SUMMARY | 2024-11-05 09:00 | XMS_ITS | Encounter Summary ---
Author Organization Healthcare Address [address] [place] [address] Care Team Providers Care Top Closer Name Role Phone Audi Howell Primary Care Provider Reason for Visit * Reason Comments Follow-up Lupus Encounter Details Date Type Department Care Team (Latest Contact Info) Description 11/05/2024 9:00 AM EDT Office Visit [facility] Medicine Specialties [address] [place] [address] Myles Dyer MD [address] [place] [address] Autoimmune hepatitis (CMS/HCC) (Primary Dx); [...] relate to autoimmune disease. Follow up with lamination technician as scheduled. Blood work and urine test [...] D, et al. Efficacy of rituximab in wyybtggyc-xx-jvklytcuoevxatfk hepatitis: Results from the [employer] Hep[employer]. JHEP Rep. 2019;1(6):437-445. doi:10.1016/j.jhepr.2019.10.005). Patient will continue to follow Gastroenterology for this issue. Plan; Continue prednisone taper, Myfortic taper, and safety lab screening per gastroenterology ollow up with lamination technician as scheduled. #Elevated GONZALO and DsDNA, suspected [...] Repeat antiphospholipid antibody panel for risk stratification. [facility] Rheumatology follow-up in 6 months. Advise [...] and documenting the encounter. Myles Dyer M.D. [employer] Division of Rheumatology Department of Internal Medicine [facility] documented in this encounter Plan of Treatment Upcoming Encounters Date Type Department Care Team (Late st Contact Info) Description 02/09/2025 8:30 AM EST Appointment [facility] Ultrasound [address] [place] [address] 02/09/2025 10:00 AM EST Office Visit [facility] Medicine Specialties [address] [place] [address] Jenny Alberto MD [address] [facility] [address] [place] [address] 05/06/2025 9:00 AM EST Office Visit [facility] Medicine Specialties [address] [place] [address] Myles Dyer MD [address] [place] [address] Scheduled Orders Name Type Priority Associated Diagnoses Orde r Schedule Anti-DNA antibody, double-stranded Lab Routine Autoimmune hepatitis ([facility]) Systemic lupus erythematosus (SLE) in adult ([facility]) 3 months for 2 Occurrences starting 11/05/2024 until 05/08/2026 C3 complement Lab Routine Systemic lupus erythematosus (SLE) in adult ([facility]) 3 months for 2 Occurrences starting 11/05/2024 until 05/08/2026 C4 complement Lab Routine Systemic lupus erythematosus (SLE) in adult ([facility]) 3 months for 2 Occurrences starting 11/05/2024 until 05/08/2026 CBC and differential Lab Routine Systemic lupus erythematosus (SLE) in adult ([facility]) 3 months for 2 Occurrences starting 11/05/2024 until 05/08/2026 Comprehensive metabolic panel Lab Routine Systemic lupus erythematosus (SLE) in adult ([facility]) 3 months for 2 Occurrences starting 11/05/2024 until 05/08/2026 C-reactive protein Lab Routine Systemic lupus erythematosus (SLE) in adult ([facility]) 3 months for 2 Occurrences starting 11/05/2024 until 05/08/2026 Sedimentation Rate, Automated Lab Routine Systemic lupus erythematosus (SLE) in adult ([facility]) 3 months for 2 Occurrences starting 11/05/2024 until 05/08/2026 Urinalysis with reflex microscopic (Culture NOT Included) Lab Routine Systemic lupus erythematosus (SLE) in adult ([facility]) 3 months for 2 Occurrences starting 11/05/2024 until 05/08/2026 Protein, Random, Urine with Creatinine Lab Routine Systemic lupus erythematosus (SLE) in adult ([facility]) 3 months for 2 Occurrences starting 11/05/2024 [...] Urine <6 mg/dL 11/05/2024 11:41 AM EDT [facility] Creatinine, Urine 25 mg/dL 11/05/2024 11:41 AM EDT [facility] Protein/Creatin ine Ratio 11/05/2024 11:41 AM EDT [facility] Urine Urine specimen obtained by clean catch procedure / Unknown Non-blood Collection / Unknown 11/05/2024 10:04 AM EDT 11/05/2024 10:04 AM EDT us Myles Dyer MD LAB URINE ORDERABLES Final Res ult [facility] [address] [place] [address] * (ABNORMAL) Urinalysis with reflex microscopic (Culture NOT Included) (11/05/2024 10:04 AM EDT) Color, Urine Yellow LAB URINALYSIS - AUTOMATED METHOD 11/05/2024 11:12 AM EDT [facility] Clarity, Urine Clear LAB URINALYSIS - AUTOMATED METHOD 11/05/2024 11:12 AM EDT [facility] Spec [place], Urine 1.009 1.005 - 1.030 LAB URINALYSIS - AUTOMATED METHOD 11/05/2024 11:12 AM EDT [facility] pH, Urine 7.5 5.0 - 8.0 LAB URINALYSIS - AUTOMATED METHOD 11/05/2024 11:12 AM EDT [facility] Protein, Urine Negative Negative mg/dL LAB URINALYSIS - AUTOMATED METHOD 11/05/2024 11:12 AM EDT [facility] Glucose, Urine Negative Negative mg/dL LAB URINALYSIS - AUTOMATED METHOD 11/05/2024 11:12 AM EDT [facility] Ketones, Urine Negative Negative mg/dL LAB URINALYSIS - AUTOMATED METHOD 11/05/2024 11:12 AM EDT [facility] Blood, Urine Negative Negative LAB URINALYSIS - AUTOMATED METHOD 11/05/2024 11:12 AM EDT [facility] Bilirubin, Urine Negative Negative LAB URINALYSIS - AUTOMATED METHOD 11/05/2024 11:12 AM EDT [facility] Urobilinogen, Urine 0.2 0.2 to 1.0 mg/dL LAB URINALYSIS - AUTOMATED METHOD 11/05/2024 11:12 AM EDT [facility] Leukocytes, Urine Small(A) Negative LAB URINALYSIS - AUTOMATED METHOD 11/05/2024 11:12 AM EDT [facility] Nitrite, Urine Negative Negative LAB URINALYSIS - AUTOMATED METHOD 11/05/2024 11:12 AM EDT [facility] RBC, Urine <1 0 to 3 /HPF LAB URINALYSIS - AUTOMATED METHOD 11/05/2024 11:12 AM EDT [facility] WBC, Urine 6 - 10(A) 0 to 5 /HPF LAB URINALYSIS - AUTOMATED METHOD 11/05/2024 11:12 AM EDT [facility] Squamous Epithelial Cells 0 - 2 0 to 5 /HPF LAB URINALYSIS - AUTOMATED METHOD 11/05/2024 11:12 AM EDT [facility] Hyaline Casts 0 - 2 0 to 5 /LPF LAB URINALYSIS - AUTOMATED METHOD 11/05/2024 11:12 AM EDT [facility] Bacteria, Urine Negative Negative LAB URINALYSIS - AUTOMATED METHOD 11/05/2024 11:12 AM EDT [facility] Urine Urine specimen obtained by clean catch procedure / Unknown Non-blood Collection / Unknown 11/05/2024 10:04 AM EDT 11/05/2024 10:04 AM EDT us Myles Dyer MD LAB URINE ORDERABLES Final Res ult [facility] [address] [place] [address] documented in this encounter Visit Diagnoses Diagnosis [...] documented as of this encounter Care Teams Top Closer Relationship Specialty Start Date End Date Audi Howell DO [address] [place] [address] [place] [id number] PCP - General 11/03/24 documented as of this encounter
--- NOTE | 2024-12-05 08:59 | XR_ITS ---
FINAL REPORT TECHNIQUE: Bone densitometry calculations of the lumbar spine and bilateral hips were obtained. CLINICAL HISTORY: SCREENING COMPARISON: None FINDINGS: Using L1-4, the bone mineral density of the spine is 1.139 g/cm2, corresponding to T-score of 0.4 and a Z score of 1.5. This is within the range of normal. Using the left hip, the bone mineral density of the femoral neck is 0.795 g/cm2, corresponding to a T-score of -1.0 and a Z-score of 0.4. This is within the range of osteopenia. Using the right hip, the bone mineral density of the femoral neck is 0.785 g/cm?, corresponding to a T-score of -1.1 and a Z-score of 0.3. This is within the range of osteopenia. NOTE: T-score: Standard deviation compared with peak bone mass of young adult mean. *Following the recommendations of the International Society of Bone densitometry, classification of hip BMD is based on the lower of two T-scores; total hip or femoral neck. IMPRESSION: 1. Bone mineral density of the lumbar spine within the range of normal. 2. Bone mineral density of the bilateral femoral necks within the range of osteopenia. Reviewed, Interpreted and Dictated by Lesli Brady MD Transcribed by Josee Rodney Authenticated and . [facility]
--- OUTSIDE RECORDS SUMMARY | 2024-12-05 09:12 | XMS_ITS | Encounter Summary ---
Author Organization Healthcare Address [address] [place] [address] Care Team Providers Care Fishery Division Chief Name Role Phone Audi Howell Primary Care Provider [phone] Encounter Details Date Type Department Care Team [...] Description 02/09/2025 8:30 AM EST Appointment [facility] Ultrasound [address] [place] [address] 02/09/2025 10:00 AM EST Office Visit [facility] Medicine Specialties [address], [address] [place] [address] Jenny Alberto MD [address] [place] [address] 05/06/2025 9:00 AM EST Office Visit [facility] Medicine Specialties [address], [address] [place] [address] Myles Dyer MD [address] [place] [address] documented as of this encounter [...] documented as of this encounter Care Teams Fishery Division Chief Relationship Specialty Start Date End Date Audi Howell, [address] [place] [address] PCP - General 11/03/24 documented as of this encounter
--- OUTSIDE RECORDS SUMMARY | 2024-12-05 09:12 | XMS_ITS | Encounter Summary ---
Author Organization Healthcare Address [address] [place] [place] [address] Care Team Providers Care Patient Information Coordinator Name Role Phone Audi Howell Primary Care Provider [phone] Encounter Details Date Type Department Care Team (Late st Contact Info) Description 11/17/2024 Orders Only [facility] Medicine Specialties [address], [address] [place] [address] Provider, [address] [address] Social History Tobacco Use Types [...] Info) Description 02/09/2025 8:30 AM EST Appointment [facility] Ultrasound [address], [address] [place] [address] 02/09/2025 10:00 AM EST Office Visit [facility] Medicine Specialties [address], [address] [place] [address] Jenny Alberto MD [address] [place] [address] 05/06/2025 9:00 AM EST Office Visit [facility] Medicine Specialties [address], [address] [place] [address] Myles Dyer MD [address] [place] [address] documented as of this encounter [...] documented as of this encounter Care Teams Patient Information Coordinator Relationship Specialty Start Date End Date Audi Howell DO [address] [place] [address] [place] [address] PCP - General 11/03/24 documented as of this encounter
--- OUTSIDE RECORDS SUMMARY | 2024-12-05 09:12 | XMS_ITS | Encounter Summary ---
Author Organization Healthcare Address [address] [place] [address] Care Team Providers Care Television And Radio Repairer Name Role Phone Field, Vita PAINTING Primary Care Provider [phone] Luis Lawson MD Primary Care Provider [phone] Audi Howell DO Primary Care Provider [phone] Encounter Details Date Type Department Care Team (Late st Contact Info) Description 01/23/2024 Lab Requisition [facility] [address] [place] [address] Jenny Alberto MD [address] [place] [address] Elevation of levels of liver [...] 02/09/2025 8:30 AM EST Appointment [facility] Ultrasound [address], [address] [place] [address] 02/09/2025 10:00 AM EST Office Visit [facility] Medicine Specialties [address], 2nd [place] [address] Jenny Alberto MD [address] [email or web address] [address] [place] [address] 05/06/2025 9:00 AM EST Office Visit [facility] Medicine Specialties [address], [address]nd [place] [address] Myles Dyer MD [address] [place] [address] documented as of this encounter Procedures Procedure Name Priority Date/Time Associated Diagnosis Comments SURGICAL PATHOLOGY CONSULT Routine 01/23/2024 1:42 PM EST Elevation of levels of liver transaminase levels documented in this encounter Results * Surgical Pathology Consult (01/23/2024 1:42 PM EST) Case Report Sugical Pathology Consult Case: [id number] Authorizing Provider: Jenny Alberto MD Collected: 01/23/2024 1342 [facility] Received: 01/23/2024 1342 Pathologist: Nasra Nava MD Specimen: Liver, [id number] 01/24/2024 4:41 PM EST [facility] Final Diagnosis LIVER, NEEDLE CORE BIOPSY ([id number]; 08/15/2023): - CLINICOPATHOLOGIC FINDINGS CONSISTENT WITH AUTOIMMUNE HEPATITIS WITH STAGE 4 FIBROSIS (SEE COMMENT). 01/24/2024 4:41 PM EST [facility] at 1641 EST Comment [...] correlation is recommended. 01/24/2024 4:41 PM EST [facility] Clinical Information R74.01 - Elevation of levels of liver transaminase levels [ICD-10-CM] 01/24/2024 4:41 PM EST [facility] Gross Description A. [id number] Received along with a corresponding pathology report from [facility] are 3 slides labeled outside case: [id number] collected on 08/15/2023. 01/24/2024 4:41 PM EST [facility] Note: A resident was involved in the service. I attest I examined the relevant preparations for the specimens and confirmed the diagnosis or interpretation. 01/24/2024 4:41 PM EST [facility] Tissue Liver structure / Unknown 01/23/2024 1:42 PM EST 01/23/2024 1:42 PM EST us Jenny Alberto MD LAB PATHOLOGY ORDERABLES F inal Result [facility] [address] [place] [address] documented in this encounter Visit Diagnoses Diagnosis [...] documented as of this encounter Care Teams Television And Radio Repairer Relationship Specialty Start Date End Date Vita Reid APRN [address] [place] [address] PCP - General 07/23/20 02/24/24 Luis Lawson MD [address] [place] [address] [place] [address] PCP - General 02/25/24 11/02/24 Audi Howell DO [address] [place] [address] [address] [place] [address] PCP - General 11/03/24 documented as of this encounter
--- OUTSIDE RECORDS SUMMARY | 2024-12-05 09:12 | XMS_ITS | Encounter Summary ---
Author Organization Healthcare Address [address] [place] [address] Care Team Providers Care Scientific Diver Name Role Phone DanteAudi Serafin DO Primary Care Provider [phone] Reason for Visit * Reason Onset Date Comments Med Refill 11/12/2024 Encounter Details Date Type Department Care Team (Late st Contact Info) Description 11/12/2024 Refill [facility] [address] [place] [address] Jenny Alberto MD [address] [place] [phone] Social History Tobacco Use Types Packs/Day Years [...] Info) Description 02/09/2025 8:30 AM EST Appointment [facility] Ultrasound [address], [address]nd [place] [address] 02/09/2025 10:00 AM EST Office Visit [facility] Medicine Specialties [address], 2nd [place] [address] Jenny Alberto MD [address] [place] [address] 05/06/2025 9:00 AM EST [facility] [address], [address] [place] [address] Myles Dyer MD [address] [place] [address] documented as of this encounter [...] documented as of this encounter Care Teams Scientific Diver Relationship Specialty Start Date End Date Audi Howell DO [address] [place] [address] PCP - General 11/03/24 documented as of this encounter
--- OUTSIDE RECORDS SUMMARY | 2024-12-05 09:12 | XMS_ITS | Encounter Summary ---
Author Organization Healthcare Address [address] [place] [address] Care Team Providers Care Bakery Deliverer Name Role Phone Audi Howell Primary Care Provider [phone] Encounter Details Date Type Department Care Team (Late Contact Info) Description 12/02/2024 Telephone [facility] Medicine Specialties [address], [address]nd [place] [address] Chary Borrego RN CH-VASCULAR & INTERVENTIONAL RADIOLOGY Social History Tobacco Use Types Packs/Day Years [...] Info) Description 02/09/2025 8:30 AM EST Appointment [facility] Ultrasound [address], [address]nd [place] [address] 02/09/2025 10:00 AM EST Office Visit [facility] Medicine Specialties [address], [address] [place] [address] Jenny Alberto MD [address] [place] [address] 05/06/2025 9:00 AM EST Office Visit [facility] Medicine Specialties [address], 2nd [place] [address] Myles Dyer MD [address] [facility] [address] [place] [address] documented as of this encounter [...] documented as of this encounter Care Teams Bakery Deliverer Relationship Specialty Start Date End Date Audi Howell DO [address] [place] [address] PCP - General 11/03/24 documented as of this encounter
--- OUTSIDE RECORDS SUMMARY | 2024-12-05 09:12 | XMS_ITS | Encounter Summary ---
Author Organization Healthcare Address [address] [place] [address] Care Team Providers Care Pediatrics Hospitalist Name Role Phone Audi Howell Serafin DO Primary Care Provider [phone] Encounter Details Date Type Department Care Team (Late Contact Info) Description 12/03/2024 Orders Only [facility] Medicine Specialties [address], [address] [place] [address] Jenny Alberto MD [address] [place] [address] Social History Tobacco Use Types [...] Info) Description 02/09/2025 8:30 AM EST Appointment [facility] Ultrasound [address], [address] [place] [address] 02/09/2025 10:00 AM EST Office Visit [facility] Medicine Specialties [address], [address] [place] [address] Jenny Alberto MD [address] [place] [address] 05/06/2025 9:00 AM EST Office Visit [facility] Medicine Specialties [address], [address] [place] [address] Myles Dyer MD [address] [place] [address] documented as of this encounter Procedures Procedure Name Priority Date/Time Associated Diagnosis Comments COMPLETE METABOLIC PROFILE (CMP) Routine 12/01/2024 12:04 PM EDT documented in this encounter Results * COMPLETE METABOLIC PROFILE (CMP) (12/01/2024 12:04 PM EDT) us Jenny Alberto MD LAB [...] documented as of this encounter Care Teams Pediatrics Hospitalist Relationship Specialty Start Date End Date Audi Howell DO [address] [place] [address] PCP - General 11/03/24 documented as of this encounter
--- OUTSIDE RECORDS SUMMARY | 2024-12-05 09:12 | XMS_ITS | Clinical Summary ---
Author Organization [facility] Address [address] [place] [address] Care Team Providers Care Seafood Fisherman Name Role Phone DanteAudi Primary Care Provider [phone] Allergies No known active allergies Medications amLODIPine [...] breakfast 90 tablet 1 5 025 Active predniSONE (Deltasone) 10 MG tablet Take [...] Encounters Date Type Department Care Team Description 12/03/2024 Orders Only [facility] Medicine Specialties [address], [address] [place] [address] Jenny Alberto MD 12/02/2024 Telephone [facility] Specialties [address], [address] [place] [address] Chary Borrego RN 12/02/2024 Orders Only [facility] Specialties [address], [address] [place] [address] Provider, Historical 11/20/2024 Orders Only [facility] Specialties [address], [address] [place] [address] Provider, Historical 11/17/2024 Orders Only [facility] Specialties [address], [address] [place] [address] Provider, Historical 11/12/2024 Refill [facility] [address] [place] [address] Jenny Alberto MD 11/05/2024 9:00 AM EDT Office Visit [facility] Specialties [address], [address] [place] [address] Myles Dyer MD Autoimmune hepatitis (CMS/HCC) (Primary Dx); High risk medication use; Systemic lupus erythematosus (SLE) in adult (CMS/HCC); Anti-cardiolipin antibody positive; At risk for osteopenia 11/05/2024 Travel 11/05/2024 Telephone [facility] Specialties [address], [address] [place] [address] Lori Levi RN 11/03/2024 8:40 AM EDT Office Visit [place] [facility] [address] [place] [address] Jenny Alberto MD Autoimmune hepatitis (CMS/HCC) (Primary Dx); Other cirrhosis of liver (CMS/HCC); Elevated liver enzymes; Current use of steroid medication; Hypertension, unspecified type; Nausea 11/03/2024 Travel 10/24/2024 Orders Only [facility] Specialties [address], [address] [place] [address] Jenny Alberto MD 10/22/2024 Orders Only [facility] Specialties [facility] [address], [address] [place] [address] Caroline Tsang RN Autoimmune hepatitis ([facility]/HCC) 10/15/2024 Results Follow-Up [facility] Specialties [facility] [address], [address] [place] [address] Bjorn Cano MD 10/13/2024 Orders Only [facility] Specialties [address] [place] [address], [address] [place] [address] Lori Levi RN Autoimmune hepatitis (CMS/HCC) 09/22/2024 10:40 AM EDT Clinical Support [facility] [address] [place] [address], [address] [place] [address] Autoimmune hepatitis (CMS/HCC) 09/22/2024 9:00 AM EDT Office Visit [facility] Specialties [address] [place] [address], [address] [place] [address] Jenny Alberto MD Autoimmune hepatitis (CMS/HCC) (Primary Dx); Other cirrhosis of liver (CMS/HCC); Nausea; Elevated liver enzymes; High total IgG; History of diverticulitis 09/22/2024 Results Follow-Up [facility] Specialties [address] [place] [address], [address] [place] [address] Bjorn Cano MD 09/22/2024 Travel from Last 3 Months Immunizations Immunization [...] 8:30 AM EST Appointment [facility] Ultrasound [address], [address] [place] [address] 02/09/2025 10:00 AM EST Office Visit [facility] [address], [address] [place] [address] Jenny Alberto MD [address] [place] [address] 05/06/2025 9:00 AM EST Office Visit [facility] [address], [address] [place] [address] Myles Dyer MD [address] [place] [address] Health Maintenance Due Date Last [...] or (1 - 1-dose 75+ series) 10/11/2023 [id number] Vaccine (7 - Moderna risk 2023- season) [...] Diagnosis Comments CBC WITH AUTO DIFFERENTIAL Routine 12/02/2024 10:14 AM EDT IMMUNOGLOBULIN G SUBCLASS 4 (SO) Routine 12/02/2024 10:14 AM EDT CBC WITH AUTO DIFFERENTIAL Routine 12/02/2024 8:33 AM EDT COMPLETE METABOLIC PROFILE (CMP) Routine 12/01/2024 12:04 PM EDT COMPLETE METABOLIC PROFILE (CMP) Routine 11/17/2024 11:58 [...] Recently Relevant to Health Maintenance Results * Immunoglobulin G Subclass 4 (SO) (12/02/2024 10:14 AM EDT) Blood Venous blood specimen / Unknown Historical Provider LAB REF LAB BLOOD AND FLUID ORD Final Result * CBC and Differential (12/02/2024 10:14 AM EDT) Only the most recent of5 resultswithin the time period is included. Blood Venous blood specimen / Unknown Historical Provider LAB BLOOD ORDERABLES Final R esult * COMPLETE METABOLIC PROFILE (CMP) (12/01/2024 12:04 PM EDT) Only the most recent of3 resultswithin the time period is included. Jenny Alberto MD LAB BLOOD ORDERABLES Final Result * IgG, Plasma (11/17/2024 7:56 AM EDT) [...] ORDERABLES Final Res ult Performing Organization Address City/[facility]/ZIP Co de Phone Number [facility] [address] [place] [address] * Protein, Random, Urine with Creatinine (11/05/2024 10:04 AM EDT) Protein, Urine <6 mg/dL 11/05/2024 11:41 AM EDT [facility] Creatinine, Urine 25 mg/dL 11/05/2024 11:41 AM EDT [facility] Protein/Creatin ine Ratio 11/05/2024 11:41 AM EDT [facility] Urine Urine specimen obtained by clean catch procedure / Unknown Non-blood Collection / Unknown 11/05/2024 10:04 AM EDT 11/05/2024 10:04 AM EDT Result [facility] Myles Dyer MD LAB URINE ORDERABLES Final Res ult Performing Organization Address City/[facility]/ZIP Co de Phone Number [facility] [address] [place] [address] * (ABNORMAL) Urinalysis with reflex microscopic (Culture NOT Included) (11/05/2024 10:04 AM EDT) Color, Urine Yellow LAB URINALYSIS - AUTOMATED METHOD 11/05/2024 11:12 AM EDT [facility] Clarity, Urine Clear LAB URINALYSIS - AUTOMATED METHOD 11/05/2024 11:12 AM EDT [facility] Spec [place], Urine 1.009 1.005 - 1.030 LAB URINALYSIS - AUTOMATED METHOD 11/05/2024 11:12 AM EDT [facility] pH, Urine 7.5 5.0 - 8.0 LAB URINALYSIS - AUTOMATED METHOD 11/05/2024 11:12 AM T [facility] Protein, Urine Negative Negative mg/dL LAB URINALYSIS - AUTOMATED METHOD 11/05/2024 11:12 AM T [facility] Glucose, Urine Negative Negative mg/dL LAB URINALYSIS - AUTOMATED METHOD 11/05/2024 11:12 AM EDT [facility] Ketones, Urine Negative Negative mg/dL LAB URINALYSIS - AUTOMATED METHOD 11/05/2024 11:12 AM T [facility] Blood, Urine Negative Negative LAB URINALYSIS - AUTOMATED METHOD 11/05/2024 11:12 AM T [facility] Bilirubin, Urine Negative Negative LAB URINALYSIS - AUTOMATED METHOD 11/05/2024 11:12 AM T [facility] Urobilinogen, Urine 0.2 0.2 to 1.0 mg/dL LAB URINALYSIS - AUTOMATED METHOD 11/05/2024 11:12 AM T [facility] Leukocytes, Urine Small(A) Negative LAB URINALYSIS - AUTOMATED METHOD 11/05/2024 11:12 AM T [facility] Nitrite, Urine Negative Negative LAB URINALYSIS - AUTOMATED METHOD 11/05/2024 11:12 AM [facility] RBC, Urine <1 0 to 3 /HPF LAB URINALYSIS - AUTOMATED METHOD 11/05/2024 11:12 AM T [facility] WBC, Urine 6 - 10(A) 0 to 5 /HPF LAB URINALYSIS - AUTOMATED METHOD 11/05/2024 11:12 AM T [facility] Squamous Epithelial Cells 0 - 2 0 to 5 /HPF LAB URINALYSIS - AUTOMATED METHOD 11/05/2024 11:12 AM T [facility] Hyaline Casts 0 - 2 0 to 5 /LPF LAB URINALYSIS - AUTOMATED METHOD 11/05/2024 11:12 AM [facility] Bacteria, Urine Negative Negative LAB URINALYSIS - AUTOMATED METHOD 11/05/2024 11:12 AM T [facility] Urine Urine specimen obtained by clean catch procedure / Unknown Non-blood Collection / Unknown 11/05/2024 10:04 AM EDT 11/05/2024 10:04 AM EDT Myles Dyer MD LAB URINE ORDERABLES Final Res ult Performing Organization Address [facility] de Phone Number [facility] [address] [place] [address] * Alpha Fetoprotein, Serum (11/03/2024 10:14 AM EDT) Alpha Fetoprotein, Serum <2.3 <10.0 ng/mL 11/03/2024 12:59 PM EDT [facility] Blood Venous blood specimen / Unknown Venipuncture / Unknown 11/03/2024 10:14 AM EDT 11/03/2024 10:14 AM EDT Narrative [facility] - 11/03/2024 12:59 PM EDT Performed by Butch electrochemiluminescent immunoassay which is traceable to the 1st AFP IRP WHO Reference standard 72/255. Results obtained with different test methods or kits cannot be used interchangeably. Bjorn Cano MD LAB BLOOD ORDERABLES Final Resul t Performing Organization Address [facility] [place] [address] * Protime-INR (11/03/2024 10:14 AM EDT) Only the most recent of2 resultswithin the time period is included. Prothrombin Time 13.7 12.0 - 14.3 sec LAB COAGULATION METHOD 11/03/2024 11:54 AM EDT [facility] INR 1.0 0.9 - 1.1 LAB COAGULATION METHOD 11/03/2024 11:54 AM EDT [facility] Blood Venous blood specimen / Unknown Venipuncture / Unknown 11/03/2024 10:14 AM EDT 11/03/2024 10:14 AM EDT Narrative [facility] - 11/03/2024 11:54 AM EDT OPTIMAL INR RANGES FOR PATIENT ON ORAL ANTICOAGULANT THERAPY Prevention of venous thromboembolism INR 2.0 to 3.0 In patients with heart disease: Atrial fibrillation INR 2.0 to 3.0 Valvular heart disease INR 2.0 to 3.0 Tissue heart valves INR 2.0 to 3.0 Mechanical prosthetic valves INR 2.5 to 3.5 Prevention of recurrent AR INR 2.5 to 3.5 us Bjorn Cano MD LAB BLOOD ORDERABLES Final Resul t [facility] [address] [place] [address] * (ABNORMAL) Comprehensive metabolic panel (11/03/2024 10:14 AM EDT) Only the most recent of3 resultswithin the time period is included. Glucose, Plasma 127(H) 74 - 99 mg/dL 11/03/2024 11:31 AM EDT [facility] BUN, Plasma 21 8 - 23 mg/dL 11/03/2024 11:31 AM EDT [facility] Creatinine, Plasma 0.92 0.70 - 1.20 mg/dL 11/03/2024 11:31 AM EDT [facility] BUN/Creatinine Ratio 23 11/03/2024 11:31 AM EDT [facility] Sodium, Plasma 141 136 - 145 mmol/L 11/03/2024 11:31 AM EDT [facility] Potassium, Plasma 4.5 3.6 - 4.9 mmol/L 11/03/2024 11:31 AM EDT [facility] Chloride, Plasma 104 97 - 107 mmol/L 11/03/2024 11:31 AM EDT [facility] CO2, Plasma 25 22 - 29 mmol/L 11/03/2024 11:31 AM EDT [facility] Anion Gap 12 6 - 16 mmol/L 11/03/2024 11:31 AM EDT [facility] Total Calcium, Plasma 9.6 8.9 - 10.2 mg/dL 11/03/2024 11:31 AM EDT [facility] Total Protein 7.2 6.3 - 7.9 g/dL 11/03/2024 11:31 AM EDT [facility] Albumin, Plasma 4.4 3.5 - 5.2 g/dL 11/03/2024 11:31 AM EDT [facility] AST, Plasma 93(H) 10 - 50 U/L 11/03/2024 11:31 AM EDT [facility] ALT, Plasma 121(H) 10 - 50 U/L 11/03/2024 11:31 AM EDT [facility] Alkaline Phosphatase, Plasma 76 40 - 115 U/L 11/03/2024 11:31 AM EDT [facility] Total Bilirubin, Plasma 0.6 0.2 - 1.1 mg/dL 11/03/2024 11:31 AM EDT [facility] eGFRcr 86.2 mL/min/1.7 3m*2 11/03/2024 11:31 AM EDT [facility] Comment:Reported eGFRcr in m L/min/1.73m2 is based the CKD-EPI 2020 equation that does not use a race coefficient. Blood Venous blood specimen / Unknown Venipuncture / Unknown 11/03/2024 10:14 AM EDT 11/03/2024 10:14 AM EDT us Bjorn Cano MD LAB BLOOD ORDERABLES Final Resul t [facility] [address] [place] [address] * Hepatitis C antibody (01/21/2024 12:22 PM EST) Hepatitis C Antibody Negative Negative 01/21/2024 3:15 PM EST [facility] Blood Venous blood specimen / Unknown Venipuncture / Unknown 01/21/2024 12:22 PM EST 01/21/2024 12:23 PM EST us Jenny Alberto MD LAB BLOOD ORDERABLES Final Result [facility] [address] [place] [address] from Last 3 Months or Most Recently Relevant to Health Maintenance Insurance [facility] MEDICARE Care Teams Seafood Fisherman Relationship Specialty Start Date End Date Audi Howell DO [address] [place] [address] PCP - General 11/03/24
--- OUTSIDE RECORDS SUMMARY | 2024-12-05 09:12 | XMS_ITS | Encounter Summary ---
Author Organization Healthcare Address [address] [place] [address] Care Team Providers Care City Detective Name Role Phone Luis Lawson MD Primary Care Provider [phone] Encounter Details Date Type Department Care Team (Late st Contact Info) Description 10/24/2024 Orders Only [facility] Medicine Specialties [address] [place] [address] Jenny Alberto MD [address] [place] [address] Social History Tobacco Use Types [...] Info) Description 02/09/2025 8:30 AM EST Appointment [facility] Ultrasound [address] [place] [address] 02/09/2025 10:00 AM EST Office Visit [facility] Medicine Specialties [address], [address] [place] [address] Jenny Alberto MD [address] [place] [address] 05/06/2025 9:00 AM EST Office Visit [facility] [address], [address] [place] [address] Myles Dyer MD [address] [place] [address] documented as of this encounter Procedures Procedure [...] documented as of this encounter Care Teams City Detective Relationship Specialty Start Date End Date Luis Lawson MD [address] [place] [address] [place] [address] PCP - General 02/25/24 11/02/24 documented as of this encounter
--- OUTSIDE RECORDS SUMMARY | 2024-12-05 09:12 | XMS_ITS | Encounter Summary ---
Author Organization Healthcare Address [address] [place] [address] Care Team Providers Care Bakery Associate Name Role Phone Luis Lwason MD Primary Care Provider [phone] Encounter Details Date Type Department Care Team (Late st Contact Info) Description 10/13/2024 Orders Only [facility] Medicine Specialties [address] [place] [address] Lori Levi, RN MEDICINE SPECIALTIES [...] Info) Description 02/09/2025 8:30 AM EST Appointment [facility] Ultrasound [address] [place] [address] 02/09/2025 10:00 AM EST Office Visit [facility] Medicine Specialties [address] [place] [address] Jenny Alberto MD [address] [place] [address] 05/06/2025 9:00 AM EST Office Visit [facility] [address], [address] [place] [address] Myles Dyer MD [address] [place] [address] documented as of this encounter [...] Performing Organization Address [facility] Co de Phone Number EXTERNAL LAB [...] as of this encounter Care Teams Bakery Associate Relationship Specialty Start Date End Date Luis Lawson MD [address] [place] [address] PCP - General 02/25/24 11/02/24 documented as of this encounter
--- OUTSIDE RECORDS SUMMARY | 2024-12-05 09:12 | XMS_ITS | Encounter Summary ---
Author Organization Healthcare Address [address] [place] [address] Care Team Providers Care Assembler Body Name Role Phone Audi Howell Primary Care Provider [phone] Encounter Details Date Type Department Care Team [...] 02/09/2025 8:30 AM EST Appointment [facility] Ultrasound [address] [place] [address] 02/09/2025 10:00 AM EST Office Visit [facility] Medicine Specialties [address], [address] [place] [address] Jenny Alberto MD [address] [place] [address] 05/06/2025 9:00 AM EST Office Visit [facility] Medicine Specialties [address], [address] [place] [address] Myles Dyer MD [address] [place] [address] documented as of this encounter [...] documented as of this encounter Care Teams Assembler Body Relationship Specialty Start Date End Date Audi Howell DO [address] [place] [address] PCP - General 11/03/24 documented as of this encounter
--- OUTSIDE RECORDS SUMMARY | 2024-12-05 09:12 | XMS_ITS | Encounter Summary ---
Author Organization Healthcare Address [address] [place] [address] Care Team Providers Care Oncology Physician Assistant Name Role Phone Audi Howell Primary Care Provider [phone] Encounter Details Date Type Department Care Team (Late st Contact Info) Description 11/20/2024 Orders Only [facility] Medicine Specialties [address], [address] [place] [address] Provider, [address] [address] Social History Tobacco Use Types [...] Description 02/09/2025 8:[address] [facility] Ultrasound [address], [address] [place] [address] 02/09/2025 10:00 AM EST Office Visit [facility] Medicine Specialties [address], [address] [place] [address] Jenny Alberto MD [address] [place] [address] 05/06/2025 9:00 AM EST Office Visit [facility] Specialties [address], [address]nd [place] [address] Myles Dyer MD [address] [facility] [address] [place] [address] documented as of this encounter [...] documented as of this encounter Care Teams Oncology Physician Assistant Relationship Specialty Start Date End Date Audi Howell, [address] [place] [address] PCP - General 11/03/24 documented as of this encounter
--- OUTSIDE RECORDS SUMMARY | 2024-12-05 09:12 | XMS_ITS | Encounter Summary ---
Author Organization Healthcare Address [address] [place] [place] [address] Care Team Providers Care Autism Tutor Name Role Phone Luis Lawson MD Primary Care Provider [phone] Encounter Details Date Type Department Care Team (Late st Contact Info) Description 10/22/2024 Orders Only [facility] Medicine Specialties [address], [address] [place] [address] Caroline Tsang, RN Autoimmune hepatitis [...] EST Appointment [facility] Ultrasound [address], [address]nd [place] [address] 02/09/2025 10:00 AM EST Office Visit [facility] Medicine Specialties [address], [address] [place] [address] Jenny Alberto MD [address] [place] [address] 05/06/2025 9:00 AM EST Office Visit [facility] Medicine Specialties [address], [address] [place] [address] Myles Dyer MD [address] [place] [address] documented as of this encounter [...] documented as of this encounter Care Teams Autism Tutor Relationship Specialty Start Date End Date Luis Lawson MD [address] [place] [address] PCP - General 02/25/24 11/02/24 documented as of this encounter
--- OUTSIDE RECORDS SUMMARY | 2024-12-05 09:12 | XMS_ITS | Encounter Summary ---
Author Organization Healthcare Address [address] [place] [address] Care Team Providers Care Supervisor Blueprinting And Photocopy Name Role Phone Audi Howell Primary Care Provider [phone] Encounter Details Date Type Department Care Team (Late st Contact Info) Description 11/05/2024 Telephone [facility] Medicine Specialties [address], [address] [place] [address] Lori Levi, RN [facility] Social [...] 4:08 PM EDT Fax lab orders to [facility] on 12/01, call and remind patient [...] to fax labs in 2 weeks to [facility] * Telephone Encounter - Caroline Tsang RN - 11/20/2024 2:02 PM EDT Labs uploaded under media to provider * Telephone Encounter - Lori Levi RN - 11/07/2024 11:04 AM EDT S/W patient He will get CMV and standing lab orders completed at [facility] on 11/17/24 He does not need [...] pls send a CMV PCR order to [facility]/calder? I placed the order. documented in this encounter Plan of Treatment Upcoming Encounters Date Type Department Care Team (Late st Contact Info) Description 02/09/2025 8:30 AM EST Appointment [facility] Ultrasound [address], [address]nd [place] [address] 02/09/2025 10:00 AM EST Office Visit [facility] Medicine Specialties [address], [address] [place] [address] Jenny Alberto MD [address] [place] [address] 05/06/2025 9:00 AM EST Office Visit [facility] Medicine Specialties [address], [address] [place] [address] Myles Dyer MD [address] [place] [address] documented as of this encounter Visit Diagnoses [...] as of this encounter Care Teams Supervisor Blueprinting And Photocopy Relationship Specialty Start Date End Date Audi Howell DO [address] [place] [address] PCP - General 11/03/24 documented as of this encounter
--- OUTSIDE RECORDS SUMMARY | 2024-12-05 09:12 | XMS_ITS | Encounter Summary ---
Author Organization Healthcare Address [address] [place] [address] Care Team Providers Care Environmental Protection Officer Name Role Phone Luis Lawson MD Primary Care Provider [phone] Audi Howell DO Primary Care Provider [phone] Encounter Details Date Type Department Care Team (Late st Contact Info) Description 10/15/2024 Results Follow-Up [facility] Medicine Specialties [address], [address] [place] [address] Bjorn Cano MD [address] [place] [address] Social History Tobacco Use Types [...] Appointment [facility] Ultrasound [address], [address] [place] [address] 02/09/2025 10:00 AM EST Office Visit [facility] Medicine Specialties [address], [address] [place] [address] Jenny Alberto MD [address] [place] [address] 05/06/2025 9:00 AM EST Office Visit [facility] Medicine Specialties [address], [address] [place] [address] Myles Dyer MD [address] [facility] [address] [place] [address] documented as of this encounter [...] documented as of this encounter Care Teams Environmental Protection Officer Relationship Specialty Start Date End Date Luis Lawson MD [address] [place] [address] [place] [address] PCP - General 02/25/24 11/02/24 Audi Howell DO [address] [place] [address] PCP - General 11/03/24 documented as of this encounter
--- OUTSIDE RECORDS SUMMARY | 2024-12-05 09:12 | XMS_ITS | Encounter Summary ---
Author Organization Healthcare Address [address] [place] [address] Care Team Providers Care Maintenance Worker Name Role Phone Audi Howell Primary Care Provider [phone] Encounter Details Date Type Department Care Team (Late st Contact Info) Description 12/02/2024 Orders Only [facility] Medicine Specialties [address], [address] [place] [address] Provider, [address] [address] Social History Tobacco Use Types [...] Info) Description 02/09/2025 8:30 AM EST Appointment [facility] Ultrasound [address], [address] [place] [address] 02/09/2025 10:00 AM EST Office Visit [facility] Medicine Specialties [address], [address] [place] [address] Jenny Alberto MD [address] [place] [address] 05/06/2025 9:00 AM EST Office Visit [facility] Medicine Specialties [address], [address] [place] [address] Myles Dyer MD [address] [place] [address] documented as of this encounter Procedures Procedure Name Priority Date/Time Associated Diagnosis Comments IMMUNOGLOBULIN G SUBCLASS 4 (SO) Routine 12/02/2024 10:14 AM EDT CBC WITH AUTO DIFFERENTIAL Routine 12/02 10:14 AM EDT CBC WITH AUTO DIFFERENTIAL Routine 12/02 8:33 AM EDT documented in this encounter Results * CBC and Differential (12/02/2024 10:14 AM EDT) Blood Venous blood specimen / Unknown Historical Provider LAB BLOOD ORDERABLES Final R esult * Immunoglobulin G Subclass 4 (SO) (12/02/2024 10:14 AM EDT) Blood Venous blood specimen / Unknown Historical Provider LAB REF LAB BLOOD AND FLUID ORD Final Result * CBC and Differential (12/02/2024 8:33 AM EDT) Blood Venous blood specimen / [...] documented as of this encounter Care Teams Maintenance Worker Relationship Specialty Start Date End Date Audi Howell DO [address] [place] [address] PCP - General 11/03/24 documented as of this encounter
--- OUTSIDE RECORDS SUMMARY | 2024-12-05 09:12 | XMS_ITS ---
Laboratory report Created on: December 04, 2024 HERO HOWARD : 1950 Sex: Male Author Organization Unknown PROBLEMS Problems List Code Description RESULTS Laboratory Orders Date Order Code Test 2024-12-01 [id number] IMMUNOGLOBULIN G , QN, SERUM Laboratory Results Date LOINC Test Value Unit Reference Range Interpre tation 2024-12-01 [id number] IMMUNOGLOBULIN G , QN, SERUM 1095 MG/DL [id number]
--- OUTSIDE RECORDS SUMMARY | 2024-12-05 09:13 | XMS_ITS | Encounter Summary ---
Author Organization Healthcare Address [address] [place] [address] Care Team Providers Care Product Development Name Role Phone Luis Lawson MD Primary Care Provider [phone] Audi Howell DO Primary Care Provider [phone] Reason for Referral * Genetic Testing (Routine) - Authorized Specialty Diagnoses / Procedures Referred By Contac t Referred To Contact Diagnoses Autoimmune hepatitis (CMS/HCC) Procedures IgG IgG Bjorn Cano MD [address] [address] Phone: tel: fax: Referral ID Status Reason Start Date Expiration Date V isits Requested Visits Authorized [id number] Authorized 09/22/2024 03/24/2026 1 1 Encounter Details Date Type Department Care Team (Late st Contact Info) Description 09/22/2024 Results Follow-Up [facility] Medicine Specialties [address], [address] [place] [address] Bjorn Cano MD [address] [facility] [address] [place] [address] Social History Tobacco Use Types [...] 02/09/2025 8:30 AM EST Appointment [facility] Ultrasound [address] [place] [address] 02/09/2025 10:00 AM EST Office Visit [facility] Medicine Specialties [address], [address] [place] [address] Jenny Alberto MD [address] [place] [address] 05/06/2025 9:00 AM EST Office Visit [facility] Medicine Specialties [address] [place] [address] Myles Dyer MD [address] [place] [address] documented as of this encounter Results * Protime-INR (11/03/2024 10:14 AM EDT) Prothrombin Time 13.7 12.0 - 14.3 sec LAB COAGULATION METHOD 11/03/2024 11:54 AM EDT [facility] INR 1.0 0.9 - 1.1 LAB COAGULATION METHOD 11/03/2024 11:54 AM EDT [facility] Blood Venous blood specimen / Unknown Venipuncture / Unknown 11/03/2024 10:14 AM EDT 11/03/2024 10:14 AM EDT Narrative [facility] - 11/03/2024 11:54 AM EDT OPTIMAL INR RANGES FOR PATIENT ON ORAL ANTICOAGULANT THERAPY Prevention of venous thromboembolism INR 2.0 to 3.0 In patients with heart disease: Atrial fibrillation INR 2.0 to 3.0 Valvular heart disease INR 2.0 to 3.0 Tissue heart valves INR 2.0 to 3.0 Mechanical prosthetic valves INR 2.5 to 3.5 Prevention of recurrent DE INR 2.5 to 3.5 us Bjorn Cano MD LAB BLOOD ORDERABLES Final Resul t [facility] [address] [place] [address] * Comprehensive metabolic panel (10/13/2024 7:56 AM EDT) Blood Venous blood specimen / Unknown us Bjorn Cano MD LAB BLOOD ORDERABLES Final Resul t Performing Organization Address City/[facility] Co de Phone Number EXTERNAL LAB * CBC and differential (10/13/2024 7:56 AM EDT) Blood Venous blood specimen / Unknown us Bjorn Cano MD LAB BLOOD ORDERABLES Final Resul t Performing Organization Address City/[facility]/ZIP Co de Phone Number EXTERNAL LAB * IgG (10/13/2024 7:56 AM EDT) Blood Venous blood specimen / Unknown us Bjorn Cano MD LAB BLOOD ORDERABLES Final Resul t Performing Organization Address [facility] Co de Phone Number EXTERNAL LAB [...] as of this encounter Care Teams Product Development Relationship Specialty Start Date End Date Luis Lawson MD [address] [place] [address] [place] [address] PCP - General 02/25/24 11/02/24 Audi Howell DO [address] [facility] [address] [place] [address] PCP - General 11/03/24 documented as of this encounter
--- OUTSIDE RECORDS SUMMARY | 2024-12-05 09:13 | XMS_ITS | Encounter Summary ---
Author Organization Healthcare Address [address] [place] [address] Care Team Providers Care Community Affairs Manager Name Role Phone Luis Lawson MD Primary Care Provider [phone] Encounter Details Date Type Department Care Team (Late st Contact Info) Description 09/01/[address] [facility] Medicine Specialties [address], [address] [place] [address] Caroline Tsang, RN Social History Tobacco Use [...] get labs around 10/24/24 Fax orders to [facility] Requested ER notes * Telephone [...] AM EDT Uploaded IgG CMP CBC Per [facility], no PT/INR drawn Requested AFP [...] to the following: Comprehensive Metabolic Panel, Plasma [[id number]] on 08/29/2024 documented in this encounter Plan of Treatment Upcoming Encounters Date Type Department Care Team (Late st Contact Info) Description 02/09/2025 8:30 AM EST Appointment [facility] Ultrasound [address], [address] [place] [address] 02/09/2025 10:00 AM EST Office Visit [facility] Medicine Specialties [address], [address] [place] [address] Jenny Alberto MD [address] [facility] [address] [place] [address] 05/06/2025 9:00 AM EST Office [facility] Medicine Specialties [address], [address] [place] [address] Myles Dyer MD [address] [facility] [address] [place] [address] documented as of this encounter [...] as of this encounter Care Teams Community Affairs Manager Relationship Specialty Start Date End Date Luis Lawson MD [address] [place] [address] PCP - General 02/25/24 11/02/24 documented as of this encounter
== END 2024-12-05 23:59 | disposition home or self-care (01) ==
LOC: RAD 08:56
PROVIDERS: PCP Internal Medicine; Visit Provider Internal Medicine
DX: M85.852 Other specified disorders of bone density and structure, left thigh (principal); M85.851 Other specified disorders of bone density and structure, right thigh; Z79.899 Other long term (current) drug therapy; Z13.9 Encounter for screening, unspecified
CPT/HCPCS: 77080

== ENCOUNTER 2024-12-22 07:26 | Outpatient (CLI) | payer MEDICARE, SELFPAY ==
--- OUTSIDE RECORDS SUMMARY | 2024-11-03 08:40 | XMS_ITS | Encounter Summary ---
Author Organization [facility] Address [address] [place] [address] Care Team Providers Care Merchant Mariner Name Role Phone Dante Audi Serafin RODRIGUEZ Primary Care Provider [phone] Reason for Referral * Consultation (Routine) - Authorized Specialty Diagnoses / Procedures Referred By Contac t Referred To Contact Diagnoses Autoimmune hepatitis (CMS/HCC) Bjorn Cano MD [address] [address] Phone: tel: fax: Referral ID Status Reason Start Date Expiration Date V isits Requested Visits Authorized [id number] Authorized 11/03/2024 05/05/2026 1 1 * Genetic Testing (Routine) - Closed Specialty Diagnoses / Procedures Referred By Contac t Referred To Contact Lab Diagnoses Autoimmune hepatitis (CMS/HCC) Procedures IgG Bjorn Cano MD [address] [address] Phone: tel: fax: Referral ID Status Reason Start Date Expiration Date Visits Re quested Visits Authorized [id number] Closed 11/03/2024 05/05/2026 1 1 Reason for Visit * Reason Comments Follow-up * Consultation (Routine) - Closed Specialty Diagnoses / Procedures Referred By Contac t Referred To Contact Diagnoses Autoimmune hepatitis (CMS/HCC) Other cirrhosis of liver (CMS/HCC) Bjorn Cano MD [address] [facility] [address] [place] [address] Phone: tel: fax: Referral ID Status Reason Start Date Expiration Date Visits Re quested Visits Authorized [id number] Closed 09/22/2024 03/24/2026 1 1 Encounter Details Date Type Department Care Team (Late st Contact Info) Description 11/03/2024 8:40 AM EDT Office Visit [facility] [address] [place] [address] Jenny Alberto MD [address] [facility] [address] [place] [address] Autoimmune hepatitis (CMS/HCC) (Primary Dx); [...] EGD: Completed 06/02/[address] Vargas at [place]. No EV. PHG with reactive gastropathy. The [...] Last EGD 06/02/[address] Vargas at [place]. No EV. PHG with reactive gastropathy. - [...] Info) Description 02/09/2025 8:30 AM EST Appointment [facility] Ultrasound [address] [place] [address] 02/09/2025 10:00 AM EST Office Visit [facility] Medicine [facility]ties [address] [place] [address] Jenny Alberto MD [address] [place] [address] 05/06/2025 9:00 AM EST Office Visit [facility] [address] [place] [address] Myles Dyer MD [address] [place] [address] Scheduled Orders Name Type Priority [...] Alpha Fetoprotein, Serum (11/03/2024 10:14 AM EDT) [facility] Alpha Fetoprotein, Serum <2.3 <10.0 ng/mL 11/03/2024 12:59 PM EDT [facility] Blood Venous blood specimen / Unknown Venipuncture / Unknown 11/03/2024 10:14 AM EDT 11/03/2024 10:14 AM EDT Narrative [facility] - 11/03/2024 12:59 PM EDT Performed by Butch electrochemiluminescent immunoassay which is traceable to the 1st AFP IRP WHO Reference standard 72/255. Results obtained with different test methods or kits cannot be used interchangeably. us Bjorn Cano MD LAB BLOOD ORDERABLES Final Resul t [facility] [address] [place] [address] * IgG (11/03/2024 10:14 AM EDT) IGG 1,379 720 - 1,589 mg/dL 11/03/2024 11:31 AM EDT [facility] Blood Venous blood specimen / Unknown Venipuncture / Unknown 11/03/2024 10:14 AM EDT 11/03/2024 10:14 AM EDT us Bjorn Cano MD LAB BLOOD ORDERABLES Final Resul t [facility] [address] [place] [address] * (ABNORMAL) Comprehensive metabolic panel (11/03/2024 10:14 AM EDT) Glucose, Plasma 127(H) 74 - 99 mg/dL 11/03/2024 11:31 AM EDT [facility] BUN, Plasma 21 8 - 23 mg/dL 11/03/2024 11:31 AM EDT [facility] Creatinine, Plasma 0.92 0.70 - 1.20 mg/dL 11/03/2024 11:31 AM EDT [facility] BUN/Creatinine Ratio 23 11/03/2024 11:31 AM EDT [facility] Sodium, Plasma 141 136 - 145 mmol/L 11/03/2024 11:31 AM EDT [facility] Potassium, Plasma 4.5 3.6 - 4.9 mmol/L 11/03/2024 11:31 AM EDT [facility] Chloride, Plasma 104 97 - 107 mmol/L 11/03/2024 11:31 AM EDT [facility] CO2, Plasma 25 22 - 29 mmol/L 11/03/2024 11:31 AM EDT [facility] Anion Gap 12 6 - 16 mmol/L 11/03/2024 11:31 AM EDT [facility] Total Calcium, Plasma 9.6 8.9 - 10.2 mg/dL 11/03/2024 11:31 AM EDT [facility] Total Protein 7.2 6.3 - 7.9 g/dL 11/03/2024 11:31 AM EDT [facility] Albumin, Plasma 4.4 3.5 - 5.2 g/dL 11/03/2024 11:31 AM EDT [facility] AST, Plasma 93(H) 10 - 50 U/L 11/03/2024 11:31 AM EDT [facility] ALT, Plasma 121(H) 10 - 50 U/L 11/03/2024 11:31 AM EDT [facility] Alkaline Phosphatase, Plasma 76 40 - 115 U/L 11/03/2024 11:31 AM EDT [facility] Total Bilirubin, Plasma 0.6 0.2 - 1.1 mg/dL 11/03/2024 11:31 AM EDT [facility] eGFRcr 86.2 mL/min/1.7 3m*2 11/03/2024 11:31 AM EDT [facility] Comment:Reported eGFRcr in m L/min/1.73m2 is based the CKD-EPI 2020 equation that does not use a race coefficient. Blood Venous blood specimen / Unknown Venipuncture / Unknown 11/03/2024 10:14 AM EDT 11/03/2024 10:14 AM EDT us Bjorn Cano MD LAB BLOOD ORDERABLES Final Resul t [facility] [address] [place] [address] documented in this encounter Visit Diagnoses Diagnosis [...] documented as of this encounter Care Teams Merchant Mariner Relationship Specialty Start Date End Date Audi Howell DO [address] [place] [address] [place] [id number] PCP - General 11/03/24 documented as of this encounter
--- OUTSIDE RECORDS SUMMARY | 2024-11-05 09:00 | XMS_ITS | Encounter Summary ---
Author Organization Healthcare Address [address] [place] [address] Care Team Providers Care Motor Builder Winder Name Role Phone Audi Howell Primary Care Provider [phone] Reason for Visit * Reason Comments Follow-up Lupus Encounter Details Date Type Department Care Team (Latest Contact Info) Description 11/05/2024 9:00 AM EDT Office Visit [place] [facility] Medicine Specialties [address], [address] [place] [address] Myles Dyer MD [address] [place] [address] Autoimmune hepatitis (CMS/HCC) (Primary Dx); [...] relate to autoimmune disease. Follow up with metallography teacher as scheduled. Blood work and urine test [...] D, et al. Efficacy of rituximab in agfuezgtf-hl-mzrqycsqbcwfjasq hepatitis: Results from the [employer] Hep[employer]. JHEP Rep. 2019;1(6):437-445. doi:10.1016/j.jhepr.2019.10.005). Patient will continue to follow Gastroenterology for this issue. Plan; Continue prednisone taper, Myfortic taper, and safety lab screening per gastroenterology ollow up with metallography teacher as scheduled. #Elevated GONZALO and DsDNA, suspected [...] Repeat antiphospholipid antibody panel for risk stratification. [facility] Rheumatology follow-up in 6 months. Advise patient [...] and documenting the encounter. Myles Dyer M.D. Grape Picker Division of Rheumatology Department of Internal Medicine [facility] documented in this encounter Plan of Treatment Upcoming Encounters Date Type Department Care Team (Late st Contact Info) Description 02/09/2025 8:30 AM EST Appointment [facility] Ultrasound [address] [place] [address] 02/09/2025 10:00 AM EST Office Visit [facility] Medicine Specialties [address], [address] [place] [address] Jenny Alberto MD [address] [facility] [address] [place] [address] 05/06/2025 9:00 AM EST Office Visit [facility] Medicine Specialties [address], [address] [place] [address] Myles Dyer MD [address] [place] [address] Scheduled Orders Name Type Priority Associated Diagnoses Orde r Schedule Anti-DNA antibody, double-stranded Lab Routine Autoimmune hepatitis ([facility]) Systemic lupus erythematosus (SLE) in adult ([facility]) 3 months for 2 Occurrences starting 11/05/2024 until 05/08/2026 C3 complement Lab Routine Systemic lupus erythematosus (SLE) in adult ([facility]) 3 months for 2 Occurrences starting 11/05/2024 until 05/08/2026 C4 complement Lab Routine Systemic lupus erythematosus (SLE) in adult ([facility]) 3 months for 2 Occurrences starting 11/05/2024 until 05/08/2026 CBC and differential Lab Routine Systemic lupus erythematosus (SLE) in adult ([facility]) 3 months for 2 Occurrences starting 11/05/2024 until 05/08/2026 Comprehensive metabolic panel Lab Routine Systemic lupus erythematosus (SLE) in adult ([facility]) 3 months for 2 Occurrences starting 11/05/2024 until 05/08/2026 C-reactive protein Lab Routine Systemic lupus erythematosus (SLE) in adult ([facility]) 3 months for 2 Occurrences starting 11/05/2024 until 05/08/2026 Sedimentation Rate, Automated Lab Routine Systemic lupus erythematosus (SLE) in adult ([facility]) 3 months for 2 Occurrences starting 11/05/2024 until 05/08/2026 Urinalysis with reflex microscopic (Culture NOT Included) Lab Routine Systemic lupus erythematosus (SLE) in adult ([facility]) 3 months for 2 Occurrences starting 11/05/2024 until 05/08/2026 Protein, Random, Urine with Creatinine Lab Routine Systemic lupus erythematosus (SLE) in adult ([facility]) 3 months for 2 Occurrences starting 11/05/2024 [...] with Creatinine (11/05/2024 10:04 AM EDT) Pathologist [facility] Protein, Urine <6 mg/dL 11/05/2024 11:41 AM EDT [facility] Creatinine, Urine 25 mg/dL 11/05/2024 11:41 AM EDT [facility] Protein/Creatin ine Ratio 11/05/2024 11:41 AM EDT [facility] Urine Urine specimen obtained by clean catch procedure / Unknown Non-blood Collection / Unknown 11/05/2024 10:04 AM EDT 11/05/2024 10:04 AM EDT us Myles Dyer MD LAB URINE ORDERABLES Final Res ult [facility] [address] [place] [address] * (ABNORMAL) Urinalysis with reflex microscopic (Culture NOT Included) (11/05/2024 10:04 AM EDT) Color, Urine Yellow LAB URINALYSIS - AUTOMATED METHOD 11/05/2024 11:12 AM EDT [facility] Clarity, Urine Clear LAB URINALYSIS - AUTOMATED METHOD 11/05/2024 11:12 AM EDT [facility] Spec [place], Urine 1.009 1.005 - 1.030 LAB URINALYSIS - AUTOMATED METHOD 11/05/2024 11:12 AM EDT [facility] pH, Urine 7.5 5.0 - 8.0 LAB URINALYSIS - AUTOMATED METHOD 11/05/2024 11:12 AM EDT [facility] Protein, Urine Negative Negative mg/dL LAB URINALYSIS - AUTOMATED METHOD 11/05/2024 11:12 AM EDT [facility] Glucose, Urine Negative Negative mg/dL LAB URINALYSIS - AUTOMATED METHOD 11/05/2024 11:12 AM EDT [facility] Ketones, Urine Negative Negative mg/dL LAB URINALYSIS - AUTOMATED METHOD 11/05/2024 11:12 AM EDT [facility] Blood, Urine Negative Negative LAB URINALYSIS - AUTOMATED METHOD 11/05/2024 11:12 AM EDT [facility] Bilirubin, Urine Negative Negative LAB URINALYSIS - AUTOMATED METHOD 11/05/2024 11:12 AM EDT [facility] Urobilinogen, Urine 0.2 0.2 to 1.0 mg/dL LAB URINALYSIS - AUTOMATED METHOD 11/05/2024 11:12 AM EDT [facility] Leukocytes, Urine Small(A) Negative LAB URINALYSIS - AUTOMATED METHOD 11/05/2024 11:12 AM EDT [facility] Nitrite, Urine Negative Negative LAB URINALYSIS - AUTOMATED METHOD 11/05/2024 11:12 AM EDT [facility] RBC, Urine <1 0 to 3 /HPF LAB URINALYSIS - AUTOMATED METHOD 11/05/2024 11:12 AM EDT [facility] WBC, Urine 6 - 10(A) 0 to 5 /HPF LAB URINALYSIS - AUTOMATED METHOD 11/05/2024 11:12 AM EDT [facility] Squamous Epithelial Cells 0 - 2 0 to 5 /HPF LAB URINALYSIS - AUTOMATED METHOD 11/05/2024 11:12 AM EDT [facility] Hyaline Casts 0 - 2 0 to 5 /LPF LAB URINALYSIS - AUTOMATED METHOD 11/05/2024 11:12 AM EDT [facility] Bacteria, Urine Negative Negative LAB URINALYSIS - AUTOMATED METHOD 11/05/2024 11:12 AM EDT [facility] Urine Urine specimen obtained by clean catch procedure / Unknown Non-blood Collection / Unknown 11/05/2024 10:04 AM EDT 11/05/2024 10:04 AM EDT us Myles Dyer MD LAB URINE ORDERABLES Final Res ult [facility] [address] [place] [address] documented in this encounter Visit Diagnoses Diagnosis Autoimmune hepatitis (CMS/HCC)- Primary Autoimmune hepatitis High risk medication use Systemic lupus erythematosus (SLE) in adult (CMS/HCC) Anti-cardiolipin antibody positive Other and unspecified nonspecific immunological findings At risk for osteopenia Other specified conditions influencing health status documented in this encounter Additional Health Concerns Assessment Noted Time PHQ-9 Depression Total Score: 0 11/04/19 25 8:42 AM EDT A fall risk assessment has been complete d for the patient 11/05/2024 8:55 AM EDT A Body Mass Index follow-up plan has been documented for the patient 11/05/2024 9:42 AM EDT documented as of this encounter Care Teams Motor Builder Winder Relationship Specialty Start Date End Date Audi Howell DO [address] [place] [address] [place] [address] PCP - General 11/03/24 documented as of this encounter
--- OUTSIDE RECORDS SUMMARY | 2024-12-22 07:29 | XMS_ITS | Encounter Summary ---
Author Organization Healthcare Address [address] [place] [address] Care Team Providers Care Television Maintenance Worker Name Role Phone Audi Howell Primary Care Provider [phone] Encounter Details Date Type Department Care Team (Late Contact Info) Description 12/02/2024 Telephone [facility] Medicine Specialties [address], [address] [place] [address] Chary Borrego RN CH-VASCULAR & [...] Info) Description 02/09/2025 8:30 AM EST Appointment [facility] Ultrasound [address] [place] [address] 02/09/2025 10:00 AM EST Office Visit [facility] Medicine Specialties [address], [address] [place] [address] Jenny Alberto MD [address] [place] [address] 05/06/2025 9:00 AM EST Office Visit [facility] Medicine Specialties [address], [address] [place] [address] Myles Dyer MD [address] [facility] [address] [place] [address] documented as of this encounter [...] as of this encounter Care Teams Television Maintenance Worker Relationship Specialty Start Date End Date Audi Howell DO [address] [place] [address] PCP - General 11/03/24 documented as of this encounter
--- OUTSIDE RECORDS SUMMARY | 2024-12-22 07:29 | XMS_ITS | Clinical Summary ---
Author Organization [facility] Address [address] [place] [address] Care Team Providers Care Precision Agriculture Technician Name Role Phone Audi Howell Primary Care Provider [phone] Allergies No known active allergies Medications amLODIPine [...] each day. Active ondansetron (Zofran) 4 MG tabletIndicati ons:Nausea and vomiting, unspecified vomiting type,Autoimmun e hepatitis (CMS/HCC) Take 1 tablet (4 mg) by mouth every 8 hours as needed for nausea or vomiting. 20 tablet 3 05/24/19 Active Additional Information Patient not taking.Reported [...] (Synthroid, Levoxyl) 50 MCG tablet 07/08/19 Active levothyroxine (Synthroid, Levoxyl) 75 MCG tablet 10/31/19 Active carvedilol (Coreg) 12.5 MG tablet Take 1 tablet by mouth 2 times a day with meals. 60 tablet 1 11/04/19 25 Active predniSONE (Deltasone) 20 MG tabletIndicati ons:Autoimmune hepatitis (CMS/HCC) Take 1 tablet by mouth daily. 30 tablet 2 12/09/19 25 025 Active mycophenolate (Myfortic) 180 MG EC tabletIndicati ons:Autoimmune hepatitis (CMS/HCC) TAKE 1 TABLET BY MOUTH TWICE DAILY 60 tablet 1 12/18/19 Active mycophenolate (Myfortic) 180 MG EC tablet Take 1 tablet by mouth 2 times a day. 60 tablet 1 09/23/19 25 025 Discontinued predniSONE (Deltasone) 10 MG tablet Take 3 tablets by mouth daily. Take with breakfast 90 tablet 1 11/13/19 25 025 Discontinued(D ose adjustment) predniSONE (Deltasone) 20 MG tablet Take 1 tablet by mouth daily. 025 Discontinued(R eorder) Active Problems Problem Noted Date Diagnosed Date [...] Encounters Date Type Department Care Team Description 12/18/2024 Orders Only [facility] [address], [address] [place] [address] Myles Dyer MD 12/16/2024 Refill [facility] [address], [address] [place] [address] Bjorn Cano MD Autoimmune hepatitis (CMS/HCC) (Primary Dx) 12/08/2024 Results Follow-Up [facility] [address], [address] [place] [address] Jenny Alberto MD 12/08/2024 Orders Only [facility] [address] [place] [address] Jenny Alberto MD Autoimmune hepatitis (CMS/HCC) (Primary Dx) 12/03/2024 Orders Only [facility] [address], [address] [place] [address] Jenny Alberto MD 12/02/2024 Telephone [facility] [address] [place] [address] Chary Borrego RN 12/02/2024 Orders Only [facility] [address] [place] [address] Provider, Historical 11/20/2024 Orders Only [facility] [address] [place] [address] Provider, Historical 11/17/2024 Orders Only [facility] [address] [place] [address] Provider, Historical 11/12/2024 Refill [facility] [address] [place] [address] Jenny Alberto MD 11/05/2024 9:00 AM EDT Office Visit [facility] [address] [place] [address] Myles Dyer MD Autoimmune hepatitis (CMS/HCC) (Primary Dx); High risk medication use; Systemic lupus erythematosus (SLE) in adult (CMS/HCC); Anti-cardiolipin antibody positive; At risk for osteopenia 11/05/2024 Travel 11/05/2024 Telephone [facility] [address], [address] [place] [address] Lori Levi RN 11/03/2024 8:40 AM EDT Office Visit [facility] [address], [address] [place] [address] Jenny Ablerto MD Autoimmune hepatitis (CMS/HCC) (Primary Dx); Other cirrhosis of liver (CMS/HCC); Elevated liver enzymes; Current use of steroid medication; Hypertension, unspecified type; Nausea 11/03/2024 Travel 10/24/2024 Orders Only [facility] [address] [place] [address] Jenny Alberto MD 10/22/2024 Orders Only [facility] [address] [place] [address] Caroline Tsang RN Autoimmune hepatitis (CMS/HCC) 10/15/2024 Results Follow-Up [facility] [address] [place] [address] Bjorn Cano MD 10/13/2024 Orders Only [facility] [address] [place] [address] Lori Levi RN Autoimmune hepatitis (CMS/HCC) 09/22/2024 10:40 AM EDT Clinical Support [facility] [address] [place] [address] Autoimmune hepatitis (CMS/HCC) 09/22/2024 9:00 AM EDT Office Visit [facility] [address], [address]nd [place] [address] Jenny Alberto MD Autoimmune hepatitis (CMS/HCC) (Primary Dx); Other cirrhosis of liver (CMS/HCC); Nausea; Elevated liver enzymes; High total IgG; History of diverticulitis 09/22/2024 Results Follow-Up [facility] [address] [place] [address] Bjorn Cano MD 09/22/2024 Travel from Last [...] [facility] [address], [address] [place] [address] 02/09/2025 10:00 AM EST Office Visit [facility] [address], [address] [place] [address] Jenny Alberto MD [address] [place] [address] 05/06/2025 9:00 AM EST Office Visit [facility] [address], [address] [place] [address] Myles Dyer MD [address] [place] [address] Health Maintenance Due Date Last Done Comments [...] or (1 - 1-dose 75+ series) 10/11/2023 [id number] Vaccine (7 - Moderna risk season) 2024 [...] Procedure Name Priority Date/Time Associated Diagnosis Comments URINE CULTURE Routine 12/18/2024 2:37 PM EDT CARDIOLIPIN ANTIBODY, IGA (SO) Routine 12/18/2024 2:36 PM EDT LUPUS ANTICOAGULANT PROFILE Routine 12/18/2024 2:36 PM EDT DRVVT Routine 12/18/2024 2:36 PM EDT BETA 2 GLYCOPROTEIN 1 IGG,IGA,IGM Routine 12/18/2024 2:36 PM EDT RPR TITER Routine 12/18/2024 2:35 PM EDT CBC WITH AUTO DIFFERENTIAL Routine 12/02/2024 10:14 [...] Recently Relevant to Health Maintenance Results * Urine Culture (12/18/2024 2:37 PM EDT) Urine Urine specimen obtained by clean catch procedure / Unknown Result [facility] Myles Dyer MD LAB MICROBIOLOGY - GENERAL ORD ERABLES Final Result * Cardiolipin antibody, IgA (12/18/2024 2:36 PM EDT) Blood Venous blood specimen / Unknown Result [facility] Myles Dyer MD LAB BLOOD ORDERABLES Final Res ult * Beta-2 Glycoprotein Antibodies (12/18/2024 2:36 PM EDT) Blood Venous blood specimen / Unknown Result [facility] Myles Dyer MD LAB BLOOD ORDERABLES Final Res ult * Lupus Anticoagulant Profile (12/18/2024 2:36 PM EDT) Blood Venous blood specimen / Unknown us Myles Dyer MD LAB BLOOD ORDERABLES Final Res ult * DRVVT (12/18/2024 2:36 PM EDT) Blood Venous blood specimen / Unknown Result [facility] Myles Dyer MD LAB BLOOD ORDERABLES Final Res ult * RPR Titer (12/18/2024 2:35 PM EDT) Blood Venous blood specimen / Unknown Result [facility] Myles Dyer MD LAB BLOOD ORDERABLES Final Res ult * Immunoglobulin G Subclass 4 (SO) (12/02/2024 10:14 AM EDT) Blood Venous blood specimen / Unknown Result [facility] LAB REF LAB BLOOD AND FLUID ORD Final Result * CBC and Differential (12/02/2024 10:14 AM EDT) Only the most recent of5 resultswithin the time period is included. Blood Venous blood specimen / Unknown Result [facility] Provider LAB BLOOD ORDERABLES Final R esult * COMPLETE METABOLIC PROFILE (CMP) (12/01/2024 12:04 PM EDT) Only the most recent of3 resultswithin the time period is included. Result [facility] Jenny Alberto MD LAB BLOOD ORDERABLES Final Result * IgG, Plasma (11/17/2024 7:56 AM EDT) Only the most recent of5 resultswithin the time period is included. Blood Venous blood specimen / Unknown Result [facility] Provider LAB BLOOD ORDERABLES Final R esult * Urinalysis Microscopic Examination (11/05/2024 10:04 AM EDT) Urine Urine specimen obtained by clean catch procedure / Unknown Non-blood Collection / Unknown 11/05/2024 10:04 AM EDT 11/05/2024 10:04 AM EDT Result [facility] Myles Dyer MD LAB URINE ORDERABLES Final Res ult [facility] [address] [place] [address] * Protein, Random, Urine with Creatinine (11/05/2024 10:04 AM EDT) Protein, Urine <6 mg/dL 11/05/2024 11:41 AM EDT [facility] Creatinine, Urine 25 mg/dL 11/05/2024 11:41 AM EDT [facility] Protein/Creatin ine Ratio 11/05/2024 11:41 AM EDT [facility] Urine Urine specimen obtained by clean catch procedure / Unknown Non-blood Collection / Unknown 11/05/2024 10:04 AM EDT 11/05/2024 10:04 AM EDT us Myles Dyer MD LAB URINE ORDERABLES Final Res ult Performing Organization Address [facility] Co de Phone Number [facility] [address] [place] [address] * (ABNORMAL) Urinalysis with reflex microscopic (Culture NOT Included) (11/05/2024 10:04 AM EDT) Color, Urine Yellow LAB URINALYSIS - AUTOMATED METHOD 11/05/2024 11:12 AM EDT [facility] Clarity, Urine Clear LAB URINALYSIS - AUTOMATED METHOD 11/05/2024 11:12 AM EDT [facility] Spec [place], Urine 1.009 1.005 - 1.030 LAB URINALYSIS - AUTOMATED METHOD 11/05/2024 11:12 AM EDT [facility] pH, Urine 7.5 5.0 - 8.0 LAB URINALYSIS - AUTOMATED METHOD 11/05/2024 11:12 AM EDT [facility] Protein, Urine Negative Negative mg/dL LAB URINALYSIS - AUTOMATED METHOD 11/05/2024 11:12 AM EDT [facility] Glucose, Urine Negative Negative mg/dL LAB URINALYSIS - AUTOMATED METHOD 11/05/2024 11:12 AM EDT [facility] Ketones, Urine Negative Negative mg/dL LAB URINALYSIS - AUTOMATED METHOD 11/05/2024 11:12 AM EDT [facility] Blood, Urine Negative Negative LAB URINALYSIS - AUTOMATED METHOD 11/05/2024 11:12 AM EDT [facility] Bilirubin, Urine Negative Negative LAB URINALYSIS - AUTOMATED METHOD 11/05/2024 11:12 AM EDT [facility] Urobilinogen, Urine 0.2 0.2 to 1.0 mg/dL LAB URINALYSIS - AUTOMATED METHOD 11/05/2024 11:12 AM EDT [facility] Leukocytes, Urine Small(A) Negative LAB URINALYSIS - AUTOMATED METHOD 11/05/2024 11:12 AM EDT [facility] Nitrite, Urine Negative Negative LAB URINALYSIS - AUTOMATED METHOD 11/05/2024 11:12 AM EDT [facility] RBC, Urine <1 0 to 3 /HPF LAB URINALYSIS - AUTOMATED METHOD 11/05/2024 11:12 AM EDT [facility] WBC, Urine 6 - 10(A) 0 to 5 /HPF LAB URINALYSIS - AUTOMATED METHOD 11/05/2024 11:12 AM EDT [facility] Squamous Epithelial Cells 0 - 2 0 to 5 /HPF LAB URINALYSIS - AUTOMATED METHOD 11/05/2024 11:12 AM EDT [facility] Hyaline Casts 0 - 2 0 to 5 /LPF LAB URINALYSIS - AUTOMATED METHOD 11/05/2024 11:12 AM EDT [facility] Bacteria, Urine Negative Negative LAB URINALYSIS - AUTOMATED METHOD 11/05/2024 11:12 AM EDT [facility] Urine Urine specimen obtained by clean catch procedure / Unknown Non-blood Collection / Unknown 11/05/2024 10:04 AM EDT 11/05/2024 10:04 AM EDT us Myles Dyer MD LAB URINE ORDERABLES Final Res ult [facility] [address] [place] [address] * Alpha Fetoprotein, Serum (11/03/2024 10:14 AM EDT) Alpha Fetoprotein, Serum <2.3 <10.0 ng/mL 11/03/2024 12:59 PM EDT [facility] Blood Venous blood specimen / Unknown Venipuncture / Unknown 11/03/2024 10:14 AM EDT 11/03/2024 10:14 AM EDT Narrative [facility] - 11/03/2024 12:59 PM EDT Performed by [employer] electrochemiluminescent immunoassay which is traceable to the 1st [facility] IRP WHO Reference standard 72/255. Results obtained with different test methods or kits cannot be used interchangeably. us Bjorn Cano MD LAB BLOOD ORDERABLES Final Resul t Performing Organization Address [facility] Co de Phone Number [facility] [address] [place] [address] * Protime-INR (11/03/2024 10:14 AM EDT) Only the most recent of2 resultswithin the time period is included. Prothrombin Time 13.7 12.0 - 14.3 sec LAB COAGULATION METHOD 11/03/2024 11:54 AM EDT [facility] INR 1.0 0.9 - 1.1 LAB COAGULATION METHOD 11/03/2024 11:54 AM EDT [facility] Blood Venous blood specimen / Unknown Venipuncture / Unknown 11/03/2024 10:14 AM EDT 11/03/2024 10:14 AM EDT Narrative [facility] - 11/03/2024 11:54 AM EDT OPTIMAL INR RANGES FOR PATIENT ON ORAL ANTICOAGULANT THERAPY Prevention of venous thromboembolism INR 2.0 to 3.0 In patients with heart disease: Atrial fibrillation INR 2.0 to 3.0 Valvular heart disease INR 2.0 to 3.0 Tissue heart valves INR 2.0 to 3.0 Mechanical prosthetic valves INR 2.5 to 3.5 Prevention of recurrent MT INR 2.5 to 3.5 us Bjorn Cano MD LAB BLOOD ORDERABLES Final Resul t Performing Organization Address City/[facility]/ZIP Co de Phone Number [facility] [address] [place] [address] * (ABNORMAL) Comprehensive metabolic panel (11/03/2024 10:14 AM EDT) Only the most recent of3 resultswithin the time period is included. Glucose, Plasma 127(H) 74 - 99 mg/dL 11/03/2024 11:31 AM EDT [facility] BUN, Plasma 21 8 - 23 mg/dL 11/03/2024 11:31 AM EDT [facility] Creatinine, Plasma 0.92 0.70 - 1.20 mg/dL 11/03/2024 11:31 AM EDT [facility] BUN/Creatinine Ratio 23 11/03/2024 11:31 AM EDT [facility] Sodium, Plasma 141 136 - 145 mmol/L 11/03/2024 11:31 AM EDT [facility] Potassium, Plasma 4.5 3.6 - 4.9 mmol/L 11/03/2024 11:31 AM EDT [facility] Chloride, Plasma 104 97 - 107 mmol/L 11/03/2024 11:31 AM EDT [facility] CO2, Plasma 25 22 - 29 mmol/L 11/03/2024 11:31 AM EDT [facility] Anion Gap 12 6 - 16 mmol/L 11/03/2024 11:31 AM EDT [facility] Total Calcium, Plasma 9.6 8.9 - 10.2 mg/dL 11/03/2024 11:31 AM EDT [facility] Total Protein 7.2 6.3 - 7.9 g/dL 11/03/2024 11:31 AM EDT [facility] Albumin, Plasma 4.4 3.5 - 5.2 g/dL 11/03/2024 11:31 AM EDT [facility] AST, Plasma 93(H) 10 - 50 U/L 11/03/2024 11:31 AM EDT [facility] ALT, Plasma 121(H) 10 - 50 U/L 11/03/2024 11:31 AM EDT [facility] Alkaline Phosphatase, Plasma 76 40 - 115 U/L 11/03/2024 11:31 AM EDT [facility] Total Bilirubin, Plasma 0.6 0.2 - 1.1 mg/dL 11/03/2024 11:31 AM EDT [facility] eGFRcr 86.2 mL/min/1.7 3m*2 11/03/2024 11:31 AM EDT [facility] Comment:Reported eGFRcr in m L/min/1.73m2 is based the CKD-EPI 2020 equation that does not use a race coefficient. Blood Venous blood specimen / Unknown Venipuncture / Unknown 11/03/2024 10:14 AM EDT 11/03/2024 10:14 AM EDT us Bjorn Cano MD LAB BLOOD ORDERABLES Final Resul t [facility] [address] [place] [address] * Hepatitis C antibody (01/21/2024 12:22 PM EST) Hepatitis C Antibody Negative Negative 01/21/2024 3:15 PM EST [facility] Blood Venous blood specimen / Unknown Venipuncture / Unknown 01/21/2024 12:22 PM EST 01/21/2024 12:23 PM EST us Jenny Alberto MD LAB BLOOD [place]AB[place] [address] from Last 3 Months or Most Recently Relevant to Health Maintenance Insurance [facility] MEDICARE Care Teams Precision Agriculture Technician Relationship Specialty Start Date End Date Audi Howell DO [address] [place] [id number] PCP - General 11/03/24
--- OUTSIDE RECORDS SUMMARY | 2024-12-22 07:29 | XMS_ITS | Encounter Summary ---
Author Organization Healthcare Address [address] [place] [address] Care Team Providers Care Audiologist Name Role Phone DanteAudi Primary Care Provider [phone] Encounter Details Date Type Department Care Team (Late st Contact Info) Description 12/02/2024 Orders Only [facility] [address] [place] [address] Provider, [place] [phone] Social History Tobacco Use Types Packs/Day Years [...] as of this encounter Miscellaneous Notes * Progress Notes - Chary Borrego RN - 12/02/2024 8:33 AM EDT I have called and left a message with [facility] medical records. I have asked them to fax over the CMP lab result. documented in this encounter Plan of Treatment Upcoming Encounters Date Type Department Care Team (Late st Contact Info) Description 02/09/2025 8:30 AM EST Appointment [facility] Ultrasound [address] [place] [address] 02/09/2025 10:00 AM EST Office Visit [facility] [address] [place] [address] Jenny Alberto MD [address] [place] [address] 05/06/2025 9:00 AM EST Office Visit [facility] [address], [address] [place] [address] Myles Dyer MD [address] [place] [address] documented as of this encounter Procedures Procedure [...] documented as of this encounter Care Teams Audiologist Relationship Specialty Start Date End Date Audi Howell DO [address] [place] [address] [place] [id number] PCP - General 11/03/24 documented as of this encounter
--- OUTSIDE RECORDS SUMMARY | 2024-12-22 07:29 | XMS_ITS | Encounter Summary ---
Author Organization Healthcare Address [address] [place] [place] [address] Care Team Providers Care Mineral Surveying Technician Name Role Phone Luis Lawson MD Primary Care Provider [phone] Encounter Details Date Type Department Care Team (Late st Contact Info) Description 10/24/2024 Orders Only [facility] [address] [place] [address] Jenny Alberto MD [address] [facility] [place] [address] [place] [address] Social History Tobacco Use Types [...] 02/09/2025 8:30 AM EST Appointment [facility] Ultrasound [address] [place] [address] 02/09/2025 10:00 AM EST Office Visit [facility] [address] [place] [address] Jenny Alberto MD [address] [place] [address] 05/06/2025 9:00 AM EST Office Visit [facility] [address] [place] [address] Myles Dyer MD [address] [place] [address] documented as of this encounter Procedures Procedure [...] documented as of this encounter Care Teams Mineral Surveying Technician Relationship Specialty Start Date End Date Luis Lawson MD [address] [place] [address] [place] [id number] PCP - General 02/25/24 11/02/24 documented as of this encounter
--- OUTSIDE RECORDS SUMMARY | 2024-12-22 07:29 | XMS_ITS | Encounter Summary ---
Author Organization Healthcare Address [address] [place] [address] Care Team Providers Care Reimbursement Liaison Name Role Phone Audi Howell Primary Care Provider [phone] Encounter Details Date Type Department Care Team (Late st Contact Info) Description 11/17/2024 Orders Only [facility] Medicine Specialties [address] [place] [address] Provider, [address] [address] Social History Tobacco Use Types [...] Info) Description 02/09/2025 8:30 AM EST Appointment [facility] Ultrasound [address] [place] [address] 02/09/2025 10:00 AM EST Office Visit [facility]ties [address] [place] [address] Jenny Alberto MD [address] [place] [address] 05/06/2025 9:00 AM EST Office Visit [facility] Specialties [address] [place] [address] Myles Dyer MD [address] [place] [address] documented as of this encounter [...] documented as of this encounter Care Teams Reimbursement Liaison Relationship Specialty Start Date End Date Audi Howell DO [address] [place] [address] PCP - General 11/03/24 documented as of this encounter
--- OUTSIDE RECORDS SUMMARY | 2024-12-22 07:29 | XMS_ITS | Encounter Summary ---
Author Organization Healthcare Address [address] [place] [address] Care Team Providers Care Bonded Structures Repairer Name Role Phone Field, [employer] Primary Care Provider [phone] Luis Lawson MD Primary Care Provider [phone] Audi Howell DO Primary Care Provider Encounter Details Date Type Department Care Team (Late st Contact Info) Description 01/23/2024 Lab Requisition [facility] [address] [place] [address] Jenny Alberto MD [address] [place] [address] Elevation of levels of liver [...] Info) Description 02/09/2025 8:30 AM EST Appointment [facility] Ultrasound [address] [place] [address] 02/09/2025 10:00 AM EST Office Visit [facility] Medicine Specialties [address], [address] [place] [address] Jenny Alberto MD [address] [facility] [address] [place] [address] 05/06/2025 9:00 AM EST Office Visit [facility] Medicine Specialties [address] [place] [address] Myles Dyer MD [address] [place] [address] documented as of this encounter Procedures Procedure Name Priority Date/Time Associated Diagnosis Comments SURGICAL PATHOLOGY CONSULT Routine 01/23/2024 1:42 PM EST Elevation of levels of liver transaminase levels documented in this encounter Results * Surgical Pathology Consult (01/23/2024 1:42 PM EST) Case Report Sugical Pathology Consult Case: [id number] Authorizing Provider: Jenny Alberto MD Collected: 01/23/2024 1342 Ordering Location: [facility] Lab Received: 01/23/2024 1342 Pathologist: Nasra Nava MD Specimen: Liver, [id number] 01/24/2024 4:41 PM EST [facility] Final Diagnosis LIVER, NEEDLE CORE BIOPSY ([id number]; 08/15/2023): - CLINICOPATHOLOGIC FINDINGS CONSISTENT WITH AUTOIMMUNE HEPATITIS WITH STAGE 4 FIBROSIS (SEE COMMENT). 01/24/2024 4:41 PM EST [facility] at 1641 EST Comment [...] correlation is recommended. 01/24/2024 4:41 PM EST [facility] Clinical Information R74.01 - Elevation of levels of liver transaminase levels [ICD-10-CM] 01/24/2024 4:41 PM EST [facility] Gross Description A. [id number] Received along with a corresponding pathology report from [facility] are 3 slides labeled outside case: [id number] collected on 08/15/2023. 01/24/2024 4:41 PM EST [facility] Note: A resident was involved in the service. I attest I examined the relevant preparations for the specimens and confirmed the diagnosis or interpretation. 01/24/2024 4:41 PM EST [facility] Tissue Liver structure / Unknown 01/23/2024 1:42 PM EST 01/23/2024 1:42 PM EST us Jenny Alberto MD LAB PATHOLOGY ORDERABLES F inal Result [facility] [address] [place] [address] documented in this encounter Visit Diagnoses Diagnosis [...] documented as of this encounter Care Teams Bonded Structures Repairer Relationship Specialty Start Date End Date Vita Reid APRN [address] [place] [address] PCP - General 07/23/20 02/24/24 Luis Lawson MD [address] [place] [address] [place] [address] PCP - General 02/25/24 11/02/24 Audi Howell DO [address] [place] [address] [address] [place] [address] PCP - General 11/03/24 documented as of this encounter
--- OUTSIDE RECORDS SUMMARY | 2024-12-22 07:29 | XMS_ITS | Encounter Summary ---
Author Organization Healthcare Address [address] [place] [address] Care Team Providers Care Bss Solution Architect Name Role Phone DanteAudi Serafin DO Primary Care Provider [phone] Reason for Visit * Reason Onset Date Comments Med Refill 11/12/2024 Encounter Details Date Type Department Care Team (Late st Contact Info) Description 11/12/[address] [facility] [address] [place] [address] Jenny Alberto MD [address] [place] [id number] Social History Tobacco Use Types Packs/Day Years [...] Info) Description 02/09/2025 8:30 AM EST Appointment [facility] Ultrasound [address] [place] [address] 02/09/2025 10:00 AM EST Office Visit [facility] Medicine Specialties [address], [address] [place] [address] Jenny Alberto MD [address] [place] [address] 05/06/2025 9:00 AM EST [facility] [address], [address] [place] [address] Myles Dyer MD [address] [place] [address] documented as of this encounter [...] documented as of this encounter Care Teams Bss Solution Architect Relationship Specialty Start Date End Date Audi Howell DO [address] [place] [address] PCP - General 11/03/24 documented as of this encounter
--- OUTSIDE RECORDS SUMMARY | 2024-12-22 07:29 | XMS_ITS | Encounter Summary ---
Author Organization Healthcare Address [address] [place] [address] Care Team Providers Care Fish Hatchery Inspector Name Role Phone Audi Howell Primary Care Provider [phone] Encounter Details Date Type Department Care Team [...] Info) Description 02/09/2025 8:30 AM EST Appointment [facility] Ultrasound [address] [place] [address] 02/09/2025 10:00 AM EST Office Visit [facility] Medicine Specialties [address], [address] [place] [address] Jenny Alberto MD [address] [place] [address] 05/06/2025 9:00 AM EST Office Visit [facility] Medicine Specialties [address] [place] [address] Myles Dyer MD [address] [place] [address] documented as of this encounter [...] documented as of this encounter Care Teams Fish Hatchery Inspector Relationship Specialty Start Date End Date Adui Howell, [address] [place] [address] PCP - General 11/03/24 documented as of this encounter
--- OUTSIDE RECORDS SUMMARY | 2024-12-22 07:29 | XMS_ITS | Encounter Summary ---
Author Organization Healthcare Address [address] [place] [address] Care Team Providers Care Acid Purifier Name Role Phone Audi Howell DO Primary Care Provider [phone] Encounter Details Date Type Department Care Team (Late Contact Info) Description 12/03/2024 Orders Only [facility] Medicine Specialties [address] [place] [address] Jenny Alberto MD [address] [place] [address] Social History Tobacco Use Types [...] Description 02/09/2025 8:30 AM EST Appointment [facility] Ultrasound [address] [place] [address] 02/09/2025 10:00 AM EST Office Visit [facility] Medicine Specialties [address] [place] [address] Jenny Alberto MD [address] [place] [address] 05/06/2025 9:00 AM EST Office Visit [facility] Medicine Specialties [address] [place] [address] Myles Dyer MD [address] [place] [address] documented as of this encounter Procedures Procedure Name Priority Date/Time Associated Diagnosis Comments COMPLETE METABOLIC PROFILE (CMP) Routine 12/01/2024 12:04 PM EDT documented in this encounter Results * COMPLETE METABOLIC PROFILE (CMP) (12/01/2024 12:04 PM EDT) Jenny Alberto MD LAB BLOOD [...] documented as of this encounter Care Teams Acid Purifier Relationship Specialty Start Date End Date Audi Howell DO [address] [place] [address] [place] [address] PCP - General 11/03/24 documented as of this encounter
--- OUTSIDE RECORDS SUMMARY | 2024-12-22 07:29 | XMS_ITS | Data Portability ---
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 3 year repeat was recommended. He plans to have this done with Dr. Viera at [facility]. 2) Constipation: Well managed on Miralax once daily. 3) Heartburn: Resolved. He has stopped acid reducing medications. f/u PRN [email or web address] Not available 09/13/2022 16:00:19 04/02/2023 04/02/2023 71-year-old male with: 1) Elevated liver enzymes -Will obtain lab workup per below to rule out hepatitis, autoimmune, or hereditary/metabo lic causes. -Will order liver ultrasound -Unable to perform NOLASCO Fibrosure test today as patient is not fasting. Patient was given printed lab order and instructed to get this lab drawn at [facility] when he is fasting and goes for [...] have this done with Dr. Viera at [facility]. 3) Constipation: Well managed on Miralax once daily. 4) Heartburn: Resolved. He has stopped acid reducing medications. f/u 6 weeks [email or web address] Not available 04/02/2023 11:55:33 05/14/2023 05/14/2023 72-year-old [...] -Will order CT guided liver biopsy at [facility] for further evaluation -Diet and [...] have this done with Dr. Viera at [facility]. 4) Constipation: Well managed on Miralax once daily. 5) Heartburn: Resolved. He has stopped acid reducing medications. F/u after liver biopsy [email or web address] Not available 05/14/2023 12:55:05 08/09/2023 08/09/2023 72-year-old [...] -Will order CT guided liver biopsy at [facility]. Order was sent to [facility] Interventional Radiology x2, the patient was never called to schedule the procedure. Ordered liver biopsy to be performed at [place] yesterday. -Diet and exercise counseled -Continue to [...] have this done with Dr. Viera at [facility]. 4) Constipation: Well managed on Miralax once daily. 5) Heartburn: Resolved. He has stopped acid reducing medications. F/u after liver biopsy [email or web address] Not available 08/09/2023 10:06:50 Plan of Treatment Reminders Order Date Submit Date Provider Last Modified By Organization Details Last Modified Time Details Appointments None recorded. Lab CBC 2023 024 [facility], [address], [place], [address], 4 11:12:44 CMP, serum or plasma 2023 024 [facility], [address], [address], [place], [address], 4 11:12:42 hepatic function panel, serum 2023 024 [facility], [address], [address], [place], [address], 4 11:14:13 hepatitis panel (A+B+C), acute, serum 2023 024 [facility], [address], [address], [place], [address], 4 11:14:15 hepatitis B surface Ab, quantitat pepe, serum 2023 024 [facility], [address], [address], [place], [address], 4 11:14:20 hepatitis A virus Ab, qualitati ve, immunoass ay, serum 2023 024 [facility], [address], [address], [place], [address], 4 11:14:27 actin smooth muscle IgG Ab, quant, serum 2023 024 [facility], [address], [address], [place], [address], 4 11:14:21 mitochond rial M2 igg Ab, serum 2023 024 [facility], [address], [address], [place], [address], 4 11:14:22 igg, quantitat pepe, serum 2023 024 [facility], [address], [address], [place], [address], 4 11:14:25 GONZALO (antinucl ear antibodie s) screen, serum 2023 024 [facility], [address], [address], [place], [address], 4 11:14:23 HFE gene mutation analysis, blood or tissue 2023 024 [facility], [address], [address], [place], [address], 4 11:14:18 iron + TIBC + ferritin, serum 2023 024 [facility], [address], [address], [place], [address], 4 11:14:09 alpha-1-a ntitrypsi n (aat), QN, serum 2023 024 [email or web address] [facility], [address], [address], [place], [address], 4 10:37:40 alpha-1-a ntitrypsi n (aat), QN, serum 2023 024 [facility], [address], [address], [place], [address], 4 11:14:14 CBC 2023 024 [facility], [address], [address], [place], [address], 4 11:14:12 PT/INR 2023 024 [facility], [address], [address], [place], [address], 4 11:14:16 nonalcoho lic steatohep atitis + fibrosis panel, serum or plasma 2023 024 [facility], [address], [address], [place], [address], 4 11:14:10 afp (alpha-fe toprotein ) tumor marker, serum or plasma 2023 024 [facility], [address], [address], [place], [address], 4 11:14:19 Referral None recorded. Procedures biopsy, [...] Family history of liver disease. [address] [facility], [address], [place], [address], 4 13:49:01 Surgeries None recorded. Imaging US, liver 2023 024 [facility] (Centralized Scheduling), [address] [facility], [place], [address], 4 10:48:53 Medication Orders polyethyl jeffrey glycol 3350 17 gram/dose oral powder 2022 024 [facility], [address] [place] [address], [facility] [address], [place], [address], 4 10:33:01 famotidin e 20 mg tablet 2022 023 [email or web address] [facility], [address] [place] [address], [facility] [address], [place], [address], 4 10:15:02 Patient TargetsNo targets recorded. Patient InstructionsNo instructions recorded. Reason for Referral None Reported. Results Created Date Observation Date Name Description Value Unit Range Abnormal Flag Note LastModifiedBy Organization Detail LastModifiedTime 04/02/19 24 04/03/2023 FE+TI BC+FE R iron bind.cap.(TI BC) 396 ug/dL 250-45 0 Not Available [facility] ([facility]) [address] [place], [address], 04/19/2023 11:14:09 04/02/19 24 04/03/2023 FE+TI BC+FE R UIBC 168 ug/dL 111-34 3 Not Available [facility] ([facility]) [address] [place], [address], 04/19/2023 11:14:09 04/02/19 24 04/03/2023 FE+TI BC+FE R iron 228 ug/dL 38-169 above high normal Not Available [facility] ([facility]) [address] [place], [address], 04/19/2023 11:14:09 04/02/19 24 04/03/2023 FE+TI BC+FE R iron saturation 58 % 15-55 above high normal Not Available [facility] ([facility]) [address] [place], [address], 04/19/2023 11:14:09 04/02/19 24 04/03/2023 FE+TI BC+FE R ferritin 66 NG/mL 30-400 Not Available [facility] ([facility]) [address] [place], [address], 04/19/2023 11:14:04/02/19 24 04/02/2023 NOLASCO FIBRO SURE( R) PLUS methodology: COMMEN T The christopher margaret teste d are perfo rmed by Fibro Sure- Speci fic metho ds. Not inten ded for use with other diagn ostic consi derat ions. Not Available [facility] ([facility]) [address] [place], [address], 04/19/2023 11:14:10 04/02/19 24 04/02/2023 NOLASCO FIBRO SURE( R) PLUS interpretati ons: COMMEN T Quant itati ve resul ts of 10 bioch emica ls in combi natio n with age and gende r, are christopher zed using a compu tatio nal algor ithm to provi de a quant itati ve surro gate marke r (0.0- 1.0) of liver fibro sis ([place] vir F0-F4 ), hepat ic steat osis [...] had signi fican t NAFLD fibro sis ([place] vir F2-F4 ) and 11% had cirrh [...] y of 71%.[ 3] Not Available [facility] ([facility]) [address] [place], [address], 04/19/2023 11:14:10 04/02/19 24 04/02/2023 NOLASCO FIBRO [...] F4 - Cirrh osis Not Available [facility] ([facility]) [address] [place], [address], 04/19/2023 11:14:10 04/02/19 24 04/02/2023 NOLASCO FIBRO SURE( R) PLUS steatosis scoring COMMEN T <=0.4 0 = S0 - No Steat osis (<5%) 0.40 - 0.55 = S1 - Mild Steat osis (but Clini koki Signi fican t) (5-33 %) >0.55 = S2S3- Moder ate to Sever e Steat osis (Clin icall y Signi fican t) (34-1 00%) Not Available [facility] ([facility]) [address] [place], [address], 04/19/2023 11:14:10 04/02/19 24 04/02/2023 NOLASCO FIBRO SURE( R) PLUS nolasco scoring COMMEN T <=0.2 5 = N0 - No NOLASCO 0.25 - 0.50 = N1 - Mild NOLASCO 0.50 - 0.75 = N2 - Moder ate NOLASCO >0.75 = N3 - Sever e NOLASCO Not Available [facility] ([facility]) [address] [place], [address], 04/19/2023 11:14:10 04/02/19 24 04/02/2023 NOLASCO FIBRO [...] s of fibro sis. Not Available [facility] ([facility]) [address], [place], [address], 04/19/2023 11:14:10 04/02/19 24 04/02/2023 NOLASCO FIBRO SURE( R) PLUS comment: COMMEN T This test was devel oped and its perfo rmanc e nasim cteri stics deter mined by [employer]. It has not been clear ed or appro narinder by the Food and Drug Admin istra tion. For quest ions regar ding this repor t pleas e conta ct custo reid servi ce at [phone]. Refer ences : 1. Marciano muñoz V. et al. Diagn ostic Value of Bioch [...] 2017; 30:56 9-577 . Not Available [facility] ([facility]) [address] [place], [address], 04/19/2023 11:14:10 04/02/19 24 04/03/2023 NOLASCO FIBRO SURE( R) PLUS fibrosis score 0.89 0.00-0 .21 above high normal Not Available [facility] ([facility]) [address] [place], [address], 04/19/2023 11:14:10 04/02/19 24 04/03/2023 NOLASCO FIBRO SURE( R) PLUS fibrosis stage COMMEN T F4 - Cirrh osis Not Available [facility] ([facility]) [address], [place], [address], 04/19/2023 11:14:10 04/02/19 24 04/03/2023 NOLASCO FIBRO SURE( R) PLUS steatosis score 0.50 0.00-0 .40 above high normal Not Available [facility] ([facility]) [address] [place], [address], 04/19/2023 11:14:10 04/02/19 24 04/03/2023 NOLASCO FIBRO SURE( R) PLUS steatosis grade COMMEN T S1 - Mild Steat osis (But Clini koki Signi fican t) (5-33 %) Not Available [facility] ([facility]) [address] [place], [address], 04/19/2023 11:14:10 04/02/19 24 04/03/2023 NOLASCO FIBRO SURE( R) PLUS nolasco score 0.96 0.00-0 .25 above high normal Not Available [facility] ([facility]) [address] [place], [address], 04/19/2023 11:14:10 04/02/19 24 04/03/2023 NOLASCO FIBRO SURE( R) PLUS nolasco grade COMMEN T N3 - Sever e NOLASCO Not Available [facility] ([facility]) [address] [place], [address], 04/19/2023 11:14:10 04/02/19 24 04/03/2023 NOLASCO FIBRO SURE( R) PLUS alpha 2-macroglobu mason, qn 526 mg/dL 110-27 6 above high normal Not Available [facility] ([facility]) [address] [place], [address], 04/19/2023 11:14:10 04/02/19 24 04/03/2023 NOLASCO FIBRO SURE( R) PLUS haptoglobin 119 mg/dL 34-355 Not Available [facility] ([facility]) [address] [place], [address], 04/19/2023 11:14:10 04/02/19 24 04/03/2023 NOLASCO FIBRO SURE( R) PLUS apolipoprote in A-1 150 mg/dL 101-17 8 Not Available [facility] ([facility]) [address] [place], [address], 04/19/2023 11:14:10 04/02/19 24 04/03/2023 NOLASCO FIBRO SURE( R) PLUS bilirubin, total 0.9 mg/dL 0.0-1. 2 Not Available [facility] ([facility]) [address] [place], [address], 04/19/2023 11:14:10 04/02/19 24 04/03/2023 NOLASCO FIBRO SURE( R) PLUS GGT 61 IU/L 0-65 Not Available [facility] ([facility]) [address] [place], [address], 04/19/2023 11:14:10 04/02/19 24 04/03/2023 NOLASCO FIBRO SURE( R) PLUS ALT (SGPT) p5p 131 IU/L 0-55 above high normal Not Available [facility] ([facility]) [address] [place], [address], 04/19/2023 11:14:10 04/02/19 24 04/03/2023 NOLASCO FIBRO SURE( R) PLUS AST (SGOT) p5p 108 IU/L 0-40 above high normal Not Available [facility] ([facility]) [address] [place], [address], 04/19/2023 11:14:10 04/02/19 24 04/03/2023 NOLASCO FIBRO SURE( R) PLUS cholesterol, total 246 mg/dL 100-19 9 above high normal Not Available [facility] ([facility]) [address] [place], [address], 04/19/2023 11:14:10 04/02/19 24 04/03/2023 NOLASCO FIBRO SURE( R) PLUS glucose, serum 83 mg/dL 70-99 Not Available [facility] ([facility]) [address] [place], [address], 04/19/2023 11:14:10 04/02/19 24 04/03/2023 NOLASCO FIBRO SURE( R) PLUS triglyceride s 184 mg/dL 0-149 above high normal Not Available [facility] ([facility]) [address] [place], [address], 04/19/2023 11:14:10 04/02/19 24 04/03/2023 CBC, PLATE LET, NO DIFFE RENTI AL WBC 5.5 x10e3 /uL 3.4-10 .8 Not Available [facility] ([facility]) [address] [place], [address], 04/19/2023 11:14:12 04/02/19 24 04/03/2023 CBC, PLATE LET, NO DIFFE RENTI AL RBC 5.16 x10e6 /uL 4.14-5 .80 Not Available [facility] ([facility]) [address] [place], [address], 04/19/2023 11:14:12 04/02/19 24 04/03/2023 CBC, PLATE LET, NO DIFFE RENTI AL hemoglobin 16.7 g/dL 13.0-1 7.7 Not Available [facility] ([facility]) [address], [place], [address], 04/19/2023 11:14:12 04/02/19 24 04/03/2023 CBC, PLATE LET, NO DIFFE RENTI AL hematocrit 48.4 % 37.5-5 1.0 Not Available [facility] ([facility]) [address], [place], [address], 04/19/2023 11:14:12 04/02/19 24 04/03/2023 CBC, PLATE LET, NO DIFFE RENTI AL MCV 94 fL 79-97 Not Available [facility] ([facility]) [address], [place], [address], 04/19/2023 11:14:12 04/02/19 24 04/03/2023 CBC, PLATE LET, NO DIFFE RENTI AL MCH 32.4 pg 26.6-3 3.0 Not Available [facility] ([facility]) [address], [place], [address], 04/19/2023 11:14:12 04/02/19 24 04/03/2023 CBC, PLATE LET, NO DIFFE RENTI AL MCHC 34.5 g/dL 31.5-3 5.7 Not Available [facility] ([facility]) [address], [place], [address], 04/19/2023 11:14:12 04/02/19 24 04/03/2023 CBC, PLATE LET, NO DIFFE RENTI AL RDW 13.3 % 11.6-1 5.4 Not Available [facility] ([facility]) [address], [place], [address], 04/19/2023 11:14:12 04/02/19 24 04/03/2023 CBC, PLATE LET, NO DIFFE RENTI AL platelets 167 x10e3 /uL 150-45 0 Not Available [facility] ([facility]) [address], [place], [address], 04/19/2023 11:14:12 04/02/19 24 04/03/2023 CBC, PLATE LET, NO DIFFE RENTI AL NRBC BASIC SCIENCES DEAN Not Available [facility] ([facility]) [address], [place], [address], 04/19/2023 11:14:12 04/02/19 24 04/03/2023 HEPAT IC FUNCT ION PANEL (7) protein, total 9.5 g/dL 6.0-8. 5 above high normal Not Available [facility] ([facility]) [address], [place], [address], 04/19/2023 11:14:13 04/02/19 24 04/03/2023 HEPAT IC FUNCT ION PANEL (7) albumin 4.8 g/dL 3.8-4. 8 Not Available [facility] ([facility]) [address], [place], [address], 04/19/2023 11:14:13 04/02/19 24 04/03/2023 HEPAT IC FUNCT ION PANEL (7) bilirubin, total 0.9 mg/dL 0.0-1. 2 Not Available [facility] ([facility]) [address] [place], [address], 04/19/2023 11:14:13 04/02/19 24 04/03/2023 HEPAT IC FUNCT ION PANEL (7) bilirubin, direct 0.25 mg/dL 0.00-0 .40 Not Available [facility] ([facility]) [address], [place], [address], 04/19/2023 11:14:13 04/02/19 24 04/03/2023 HEPAT IC FUNCT ION PANEL (7) alkaline phosphatase 107 IU/L 44-121 Not Available [facility] ([facility]) [address], [place], [address], 04/19/2023 11:14:13 04/02/19 24 04/03/2023 HEPAT IC FUNCT ION PANEL (7) AST (SGOT) 97 IU/L 0-40 above high normal Not Available [facility] ([facility]) [address], [place], [address], 04/19/2023 11:14:13 04/02/19 24 04/03/2023 HEPAT IC FUNCT ION PANEL (7) ALT (SGPT) 106 IU/L 0-44 above high normal Not Available [facility] ([facility]) [address], [place], [address], 04/19/2023 11:14:13 04/02/19 24 04/02/2023 A1A, QUANT [...] ded genot yping . Nilo ic couns eling is recom abdelrahman d to discu ss the poten tial clini dean impli catio ns of posit pepe resul ts, as well as recom menda tions for testi ng famil y membe rs. Nilo ic Coord inato rs are avail able for healt h care provi ders to discu ss resul ts at [phone] [phone] ([phone] ). Test Detai ls: Two varia nts [...] es in the SERPI NA1 gene (NM_0 [id number] .4) was perfo rmed by multi plex [...] e nasim cteri stics deter mined by [employer]. It has not been clear ed or appro narinder by the Food and Drug Admin istra tion. Refer ences : Flory wang RA, Duke o G, Rk ly ML, Sole s M, Tin CE, Nava an K, Awilda cox DK, Gayathri t SL, Dioni sams JM, Yuval GRIFFITH, Ronal mae C, Mary Jade. The Diagn osis and Manag ement of Alpha -1 Antit rypsi n Defic iency in the Adult . Chron ic Obstr Pulm Dis. 2016 Aug 15;3(3 ):668 -682. doi: 10.15 326/j copdf .3.32014. 0182. PMID: 92104 891; PMCID : PMC55 81611 . Yuval GRIFFITH, Glynn burton V, Monroe SANTOS. Alpha -1 Antit rypsi n Defic iency . 2005Jan 05 [Upda bhavesh 2019July 30]. In: [place] MP, [facility], Severino MEADOWS, et al., kanwal rs. GeneR james sams(R) [Inte rnet] . Girish dawson ([place]): [facility] Girish Segura; 1992- 2020. Avail able from: https ://ww w.ncb i.nlm .nih. gov/b ooks/ NBK15 19/ Not Available [facility] ([facility]) [address] [place], [address], 04/19/2023 11:14:14 04/02/19 24 04/04/2023 A1A, QUANT +OH TYPE( RFX PHENO ) esqun-3-ansk trypsin, serum 165 mg/dL 101-18 7 Not Available [facility] ([facility]) [address] [place], [address], 04/19/2023 11:14:14 04/02/19 24 04/10/2023 A1A, QUANT [...] n and Comme nts. Not Available [facility] ([facility]) [address] [place], [address], 04/19/2023 11:14:14 04/02/19 24 04/10/2023 A1A, QUANT +OH TYPE( RFX PHENO ) electronical ly signed by: CINDA MORFIN, PHD Not Available [facility] ([facility]) [address] [place], [address], 04/19/2023 11:14:14 04/02/19 24 04/10/2023 A1A, QUANT +OH TYPE( RFX PHENO ) a1a rfx to phenotype NOT INDICA BHAVESH Not Available [facility] ([facility]) [address] [place], [address], 04/19/2023 11:14:14 04/02/19 24 04/03/2023 ACUTE HEPAT ITIS hep A Ab, IgM NEGATI VE negati ve Not Available [facility] ([facility]) [address] [place], [address], 04/19/2023 11:14:15 04/02/19 24 04/03/2023 ACUTE HEPAT ITIS HBsAg screen NEGATI VE negati ve Not Available [facility] ([facility]) [address] [place], [address], 04/19/2023 11:14:15 04/02/19 24 04/03/2023 ACUTE HEPAT ITIS hep B core Ab, IgM NEGATI VE negati ve Not Available [facility] ([facility]) [address], [place], [address], 04/19/2023 11:14:15 04/02/19 24 04/03/2023 ACUTE HEPAT ITIS HCV Ab NON REACTI VE non reacti ve Not Available [facility] ([facility]) [address], [place], [address], 04/19/2023 11:14:15 04/02/19 24 04/03/2023 ACUTE HEPAT ITIS interpretati on: COMMEN T Not infec bhavesh with HCV unles s early or acute infec tion is suspe cted (whic h may be delay ed in an immun ocomp romis ed indiv idual ), or other evide nce exist s to indic ate HCV infec tion. Not Available [facility] ([facility]) [address], [place], [address], 04/19/2023 11:14:15 04/02/19 24 04/03/2023 PROTH ROMBI [...] range 2.5 - 3.5 Not Available [facility] ([facility]) [address], [place], [address], 04/19/2023 11:14:16 04/02/19 24 04/03/2023 PROTH ROMBI N TIME (PT), SERIA L prothrombin time 12.0 sec 9.1-12 .0 Not Available [facility] ([facility]) [address], [place], [address], 04/19/2023 11:14:16 04/02/19 24 04/03/2023 PROTH PARAS N TIME (PT), SERIA L pdf . Not Available [facility] ([facility]) [address], [place], [address], 04/19/2023 11:14:16 04/02/19 24 04/18/2023 HERED .HEMO [...] ders to discu ss resul ts at [phone] [phone] (1124 ). Test Detai ls: Three varia nts christopher zed: c.845 G>A (p.Cy s282T yr), commo nly refer red to as C282Y c.187 C>G (p.Hi s63As p), commo nly refer red to as H63D c.193 A> T (p.Se r65Cy s), commo nly refer red to as S65C Metho ds/Li mitat ions: DNA Christopher sis of the HFE gene (NM_0 [id number] .4) was perfo rmed by PCR ampli [...] 3. doi: 10.10 / p.243 30. PMID: 86204 290; PMCID : PMC31 99786 . Robert G, Shabana ot P, Brandon pike DW, Martha r H, Asa terrazas O, Rosana n S, Allaura o I, Mickey s M, Nicholas y S. EMQN best pract ice guide lines for the molec ular nilo ic diagn osis of hered itary hemoc hroma tosis (HH). Eur J Hum Nilo . 2016 Jun;2 4(4): 479-9 5. doi: 10.10 /ej hg.20 15.12 8. Epub 2014 8. PMID: 04787 218; PMCID : PMC49 65339 . Not Available [facility] ([facility]) [address], [place], [address], 04/19/2023 11:14:18 04/02/19 24 04/18/2023 HERED .HEMO CHROM ATOSI S, DNA reviewed by: FAITH [employer] Techn ical Hanson nent perfo rmed at [facility] RTP Profe ssion al Hanson nent perfo rmed by: Marcell lieberman, Ph.D. , [facility], [facility]ole[facility] ular [facility]ilo [facility] [address] [place] [address] Not Available [facility] ([facility]) [address], [place], [address], 04/19/2023 11:14:18 04/02/19 24 04/03/2023 AFP, SERUM [...] the prese nce or absen ce of [facility] disea se. This test is not inter preta ble in pregn ant femal es. Not Available [facility] ([facility]) [address], [place], [address], 04/19/2023 11:14:19 04/02/19 24 04/03/2023 HEPAT ITIS B SURF AB QUANT hepatitis B surf Ab quant 3.3 mIU/m L immuni ty>9.9 below low normal Statu s of Immun ity Anti- HBs Level ----- ----- ----- --- ----- ----- ---- Incon siste nt with Immun ity 0.0 - 9.9 Consi stent with Immun ity >9.9 Not Available [facility] ([facility]) [address], [place], [address], 04/19/2023 11:14:20 04/02/19 24 04/03/2023 ACTIN (SMOO [...] bilia ry cirrh osis. Not Available [facility] ([facility]) [address] [place], [address], 04/19/2023 11:14:21 04/02/19 24 04/03/2023 MITOC HONDR IAL (M2) ANTIB LEANDRO mitochondria l (M2) antibody <20.0 units 0.0-20 .0 Negat pepe 0.0 - 20.0 Equiv ocal 20.1 - 24.9 Posit pepe >24.9 Mitoc hondr ial (M2) Antib odies are found in 90-96 % of patie nts with prima ry bilia ry cirrh osis. Not Available [facility] ([facility]) [address] [place], [address], 04/19/2023 11:14:22 04/02/19 24 04/03/2023 GONZALO W/REF SALIMA GONZALO direct POSITI VE negati ve abnormal Not Available [facility] ([facility]) [address] [place], [address], 04/19/2023 11:14:23 04/02/19 24 04/03/2023 GONZALO W/REF SALIMA anti-DNA (ds) Ab qn 27 IU/mL 0-9 above high normal Negat pepe <5 Equiv ocal 5 - 9 Posit pepe >9 Not Available [facility] ([facility]) [address] [place], [address], 04/19/2023 11:14:23 04/02/19 24 04/03/2023 GONZALO W/REF SALIMA fire control technician b antibodies 0.8 ai 0.0-0. 9 Not Available [facility] ([facility]) [address] [place], [address], 04/19/2023 11:14:23 04/02/19 24 04/03/2023 GONZALO W/REF SALIMA carpio antibodies <0.2 ai 0.0-0. 9 Not Available [facility] ([facility]) [address] [place], [address], 04/19/2023 11:14:23 04/02/19 24 04/03/2023 GONZALO W/REF SALIMA antisclerode rma-70 antibodies 0.2 ai 0.0-0. 9 Not Available [facility] ([facility]) [address] [place], [address], 04/19/2023 11:14:23 04/02/19 24 04/03/2023 GONZALO W/REF SALIMA sjogren's anti-ss-A <0.2 ai 0.0-0. 9 Not Available [facility] ([facility]) [address] [place], [address], 04/19/2023 11:14:23 04/02/19 24 04/03/2023 GONZALO W/REF SALIMA sjogren's anti-ss-B <0.2 ai 0.0-0. 9 Not Available [facility] ([facility]) [address] [place], [address], 04/19/2023 11:14:23 04/02/19 24 04/03/2023 GONZALO W/REF SALIMA thyroid peroxidase (tpo) Ab 170 IU/mL 0-34 above high normal Not Available [facility] ([facility]) [address] [place], [address], 04/19/2023 11:14:23 04/02/19 24 04/03/2023 GONZALO W/REF SALIMA antichromati n antibodies 6.0 ai 0.0-0. 9 above high normal Not Available [facility] ([facility]) [address] [place], [address], 04/19/2023 11:14:23 04/02/19 24 04/03/2023 GONZALO W/REF SALIMA anti-centrom ere B antibodies <0.2 ai 0.0-0. 9 Not Available [facility] ([facility]) [address] [place], [address], 04/19/2023 11:14:23 04/02/19 24 04/05/2023 GONZALO W/REF SALIMA complement C3, serum 155 mg/dL 82-167 Not Available [facility] ([facility]) [address] [place], [address], 04/19/2023 11:14:23 04/02/19 24 04/05/2023 GONZALO W/REF SALIMA complement C4, serum 16 mg/dL 12-38 Not Available [facility] ([facility]) [address] [place], [address], 04/19/2023 11:14:23 04/02/19 24 04/05/2023 GONZALO W/REF SALIMA rheumatoid factor (rf) 12.2 IU/mL <14.0 Not Available [facility] ([facility]) [address] [place], [address], 04/19/2023 11:14:23 04/02/19 24 04/05/2023 GONZALO W/REF SALIMA anti-ccp Ab, IgG/IgA 14 units 0-19 Negat pepe <20 Weak posit pepe 20 - 39 Moder ate posit pepe 40 - 59 Stron g posit pepe >59 Not Available [facility] ([facility]) [address] [place], [address], 04/19/2023 11:14:23 04/02/19 24 04/05/2023 GONZALO W/REF SALIMA anticardioli pin Ab,IgG,qn 15 gpl_U /mL 0-14 above high normal Negat pepe: <15 Indet ermin ate: 15 - 20 Low-M ed Posit pepe: >20 - 80 High Posit pepe: >80 Not Available [facility] ([facility]) [address] [place], [address], 04/19/2023 11:14:23 04/02/19 24 04/05/2023 GONZALO W/REF SALIMA anticardioli pin Ab,IgM,qn 15 mpl_U /mL 0-12 above high normal Negat pepe: <13 Indet ermin ate: 13 - 20 Low-M ed Posit pepe: >20 - 80 High Posit pepe: >80 Not Available [facility] ([facility]) [address], [place], [address], 04/19/2023 11:14:23 04/02/19 24 04/05/2023 GONZALO W/REF SALIMA anticardioli pin Ab,IgA,qn <9 apl_U /mL 0-11 Negat pepe: <12 Indet ermin ate: 12 - 20 Low-M ed Posit pepe: >20 - 80 High Posit pepe: >80 Not Available [facility] ([facility]) [address] [place], [address], 04/19/2023 11:14:23 04/02/19 24 04/03/2023 IMMUN OGLOB ULIN G, QN, SERUM immunoglobul in g, qn, serum 3136 mg/dL 603-16 13 above high normal Not Available [facility] ([facility]) [address] [place], [address], 04/19/2023 11:14:25 04/02/19 24 04/03/2023 ALPHA -1-AN TITRY PSIN, SERUM afmen-2-raef trypsin, serum 157 mg/dL 101-18 7 Not Available [facility] ([facility]) [address] [place], [address], 04/19/2023 11:14:26 04/02/19 24 04/03/2023 HEP A [...] Antib leandro w/ Rfx). Not Available [facility] ([facility]) [address], [place], [address], 04/19/2023 11:14:27 04/25/19 24 04/25/2023 BUN BUN 17 mg/dL 7-18 Not Available [facility] ([facility]) [address] [facility], [place], [address], 04/25/2023 09:27:18 04/25/19 24 04/25/2023 CREAT ININE creatinine 1.0 mg/dL 0.6-1. 3 Not Available [facility] ([facility]) [address] [facility], [place], [address], 04/25/2023 09:27:20 04/25/19 24 04/25/2023 CREAT ININE glomerular filtration rate TNP mlper min 60- TEST NOT PERFO RMED GFR has only been valid ated from 18 to 70 years of age. Not Available [facility] ([facility]) [address] [facility], [place], [address], 04/25/2023 09:27:20 08/09/19 24 08/10/2023 COMP. METAB OLIC PANEL (14) glucose 86 mg/dL 70-99 Not Available [facility] ([facility]) [address], [place], [address], 08/10/2023 11:12:42 08/09/19 24 08/10/2023 COMP. METAB OLIC PANEL (14) BUN 16 mg/dL 8-27 Not Available [facility] ([facility]) [address], [address], 08/10/2023 11:12:42 08/09/19 24 08/10/2023 COMP. METAB OLIC PANEL (14) creatinine 1.04 mg/dL 0.76-1 .27 Not Available [facility] ([facility]) [address], [address], 08/10/2023 11:12:42 08/09/19 24 08/10/2023 COMP. METAB OLIC PANEL (14) eGFR 75 mL/mi n/1.7 3 >59 Not Available [facility] ([facility]) [address] [place], [address], 08/10/2023 11:12:42 08/09/19 24 08/10/2023 COMP. METAB OLIC PANEL (14) BUN/creatini ne ratio 15 10-24 Not Available [facility] ([facility]) [address], [place], [address], 08/10/2023 11:12:42 08/09/19 24 08/10/2023 COMP. METAB OLIC PANEL (14) sodium 137 mmol/ L 134-14 4 Not Available [facility] ([facility]) [address] [place], [address], 08/10/2023 11:12:42 08/09/19 24 08/10/2023 COMP. METAB OLIC PANEL (14) potassium 4.9 mmol/ L 3.5-5. 2 Not Available [facility] ([facility]) [address] [place], [address], 08/10/2023 11:12:42 08/09/19 24 08/10/2023 COMP. METAB OLIC PANEL (14) chloride 101 mmol/ L 96-106 Not Available [facility] ([facility]) [address], [place], [address], 08/10/2023 11:12:42 08/09/19 24 08/10/2023 COMP. METAB OLIC PANEL (14) carbon dioxide, total 24 mmol/ L Not Available [facility] ([facility]) [address], [place], [address], 08/10/2023 11:12:42 08/09/19 24 08/10/2023 COMP. METAB OLIC PANEL (14) calcium 9.8 mg/dL 8.6-10 .2 Not Available [facility] ([facility]) [address] [place], [address], 08/10/2023 11:12:42 08/09/19 24 08/10/2023 COMP. METAB OLIC PANEL (14) protein, total 8.4 g/dL 6.0-8. 5 Not Available [facility] ([facility]) [address], [place], [address], 08/10/2023 11:12:42 08/09/19 24 08/10/2023 COMP. METAB OLIC PANEL (14) albumin 4.3 g/dL 3.8-4. 8 Not Available [facility] ([facility]) [address] [place], [address], 08/10/2023 11:12:42 08/09/19 24 08/10/2023 COMP. METAB OLIC PANEL (14) globulin, total 4.1 g/dL 1.5-4. 5 Not Available [facility] ([facility]) [address] [place], [address], 08/10/2023 11:12:42 08/09/19 24 08/10/2023 COMP. METAB OLIC PANEL (14) A/G ratio 1.0 1.2-2. 2 below low normal Not Available [facility] ([facility]) [address] [place], [address], 08/10/2023 11:12:42 08/09/19 24 08/10/2023 COMP. METAB OLIC PANEL (14) bilirubin, total 1.0 mg/dL 0.0-1. 2 Not Available [facility] ([facility]) [address] [place], [address], 08/10/2023 11:12:42 08/09/19 24 08/10/2023 COMP. METAB OLIC PANEL (14) alkaline phosphatase 85 IU/L 44-121 Not Available [facility] ([facility]) [address] [place], [address], 08/10/2023 11:12:42 08/09/19 24 08/10/2023 COMP. METAB OLIC PANEL (14) AST (SGOT) 74 IU/L 0-40 above high normal Not Available [facility] ([facility]) [address], [place], [address], 08/10/2023 11:12:42 08/09/19 24 08/10/2023 COMP. METAB OLIC PANEL (14) ALT (SGPT) 75 IU/L 0-44 above high normal Not Available [facility] ([facility]) [address] [place], [address], 08/10/2023 11:12:42 08/09/19 24 08/10/2023 CBC, PLATE LET, NO DIFFE RENTI AL WBC 4.6 x10e3 /uL 3.4-10 .8 Naif ified by repea t christopher sis Not Available [facility] ([facility]) [address] [place], [address], 08/10/2023 11:12:44 08/09/19 24 08/10/2023 CBC, PLATE LET, NO DIFFE RENTI AL RBC 4.66 x10e6 /uL 4.14-5 .80 Not Available [facility] ([facility]) [address] [facility] [place], [address], 08/10/2023 11:12:44 08/09/19 24 08/10/2023 CBC, PLATE LET, NO DIFFE RENTI AL hemoglobin 15.0 g/dL 13.0-1 7.7 Not Available [facility] ([facility]) [address], [place], [address], 08/10/2023 11:12:44 08/09/19 24 08/10/2023 CBC, PLATE LET, NO DIFFE RENTI AL hematocrit 43.6 % 37.5-5 1.0 Not Available [facility] ([facility]) [address], [place], [address], 08/10/2023 11:12:44 08/09/19 24 08/10/2023 CBC, PLATE LET, NO DIFFE RENTI AL MCV 94 fL 79-97 Not Available [facility] ([facility]) [address], [place], [address], 08/10/2023 11:12:44 08/09/19 24 08/10/2023 CBC, PLATE LET, NO DIFFE RENTI AL MCH 32.2 pg 26.6-3 3.0 Not Available [facility] ([facility]) [address], [place], [address], 08/10/2023 11:12:44 08/09/19 24 08/10/2023 CBC, PLATE LET, NO DIFFE RENTI AL MCHC 34.4 g/dL 31.5-3 5.7 Not Available [facility] ([facility]) [address], [place], [address], 08/10/2023 11:12:44 08/09/19 24 08/10/2023 CBC, PLATE LET, NO DIFFE RENTI AL RDW 14.0 % 11.6-1 5.4 Not Available [facility] ([facility]) [address] [place], [address], 08/10/2023 11:12:44 08/09/19 24 08/10/2023 CBC, PLATE LET, NO DIFFE RENTI AL platelets 138 x10e3 /uL 150-45 0 below low normal Not Available [facility] ([facility]) [address], [place], [address], 08/10/2023 11:12:44 08/09/19 24 08/10/2023 CBC, PLATE LET, NO DIFFE RENTI AL NRBC [employer] DEAN Not Available [facility] ([facility]) [address], [place], [address], 08/10/2023 11:12:44 04/10/19 24 04/10/2023 US, liver [facility] [address] [place] [address] Phone: Fax: Name: HERO PATINO Exam Date: 024 : [birth year] Age 72 Gender : M Access ion: [id number] Physic rudy: BRONWYN WHITT Facili ty: [facility] Facili ty HSV: Outpat ient Exam: [...] interp reted, and dictat ed by Chantal Durand, D.O. Transc ribed by Gerald sams PA-C Dictat ed By: CHANTAL DURAND Transc ribed By: Chantal Durand Transc ribed On: 10:30 AM Electr onical ly signed by: CHANTAL DURAND Thank you for referr HERO Arzola to [facility]. Legall y authen ticate d by POPE CHANTAL Napier 04-10 10:30: 03 CC'ed Logic: Orderi ng Provid er: WHITT [place] Attend ing Provid er: WHITT [place] Admitt ing Provid er: WHITT [place] [email or web address] [facility] [address] [facility], [place], [address], 04/13/2023 17:41:14 04/25/19 24 04/25/2023 CT [facility] [address] [place] [address] Phone: Fax: Name: HERO PATINO Exam Date: : [birth year] Age 72 Gender : M Access ion: [id number] Physic rudy: BRONWYN WHITT Facili ty: [facility] Facili ty HSV: Outpat ient Exam: CT [...] mass measur ing 4 cm in the location director ior right kidney . There is also a 1.[address] nonenh ancing mass in the location director ior left kidney . A 5 mm [...] Thank you [facility] Legall y authen ticate d by POPE CHANTAL Napier 0 04-25 11:35: 24 CC'ed Logic: Orderi ng Provid er: WHITT [place]YN [place] Attend ing Provid er: [place] Admitt ing Provid er: [place] [email or web address] [facility] [address] [place] [address], [place], [address], 04/27/2023 14:25:16 08/15/19 24 08/15/2023 CT BX of liver -need le [facility] [address] [place] [address] Phone: Fax: Name: HERO PATINO Exam Date: 08/15/19 24 : [birth year] Age 72 years Gender : M Access ion: [id number] Physic rudy: BRONWYN WHITT [place] Facili ty: [facility] Facili ty HSV: Outpat ient Exam: [...] Thank you for referr HERO Arzola to [facility]. Legall y authen ticate d by POPE CHANTAL Napier 2023-0 08-14 09:11: 59 CC'ed Logic: Orderi ng Provid er: WHITT [place] Attend ing Provid er: WHITT [place] Referr ing Provid er: WHITT [place] Admitt ing Provid er: WHITT BRONWYN [place] [facility] [address] [facility], [place], [address], 08/22/2023 12:59:58 08/15/19 24 08/15/2023 CT BX of liver -need [facility] [address] [place] [address] Phone: Fax: Name: HERO PATINO Exam Date: 08/15/19 : [birth year] Age 72 years Gender : M Access ion: [id number] Physic rudy: BRONWYN WHITT [place] Facili ty: [facility] Facili ty HSV: Outpat ient Exam: CT [...] ints or compli cation s. IMPRES [place]: CT-lcaho ded liver biopsy as detail ed above [...] DURAND 08/15/19 Thank you for referr ing PATINO , HERO to [facility] al. Legall y authen ticate d by POPE CHANTAL Napier 2023-0 08-14 09:17: 20 CC'ed Logic: Orderi ng Provid er: WHITT [place] Attend ing Provid er: [place]ITT [place] Referr ing Provid er: WHITT [place] Admitt ing Provid er: WHITT BRONWYN [place] [facility] [address], [place], [address], 08/22/2023 12:59:58 Result Notes None recorded. Problems Name Problem SNOMED Code Status Onset Date Resolution Date Notes Provider Name and Address Organization Details Recorded Time Constipation 62442083 Active 2022 Barrera Rodney PA-C [address] [facility], [place], [address] , [facility] & [place] 3 09:28:37 Problem Notes None recorded. Procedures Surgical History Date Name Laterality Status Provider Name and Address Organization Details Recorded Time 4 Procedure Note completed BRIAN WHITT MSN, PUBLIC HEALTH NUTRITIONIST, SHIPPING LEAD PERSON-C [address] [facility], [place], [address], [facility] & [place] 08/09/2023 09:21:29 4 Procedure Note completed BRIAN WHITT MSN, PUBLIC HEALTH NUTRITIONIST, SHIPPING LEAD PERSON-C [address] [facility], [place], [address], [place] - [facility] & [place] 05/14/2023 09:32:45 4 Procedure Note completed BRIAN WHITT MSN, PUBLIC HEALTH NUTRITIONIST, SHIPPING LEAD PERSON-C [address] [facility], [place], [address], [facility] - [facility] & [place] 04/02/2023 11:35:51 hernia repair completed Emma Ramirez [place] - [facility] & [place] 09/13/2022 08:53:22 Imaging Results None recorded. Procedure [...] Available Vitals Date Recorded Body weight Systolic And Diastolic Provider Name and Address Organization Details Last Updated DateTime 03/15/2022 42951.48 g 137/84 mm[Hg] Jovanna Hood [place] - [facility] - [place] & [place] 03/15/2022 09:18:03 Date Recorded Body height Body mass index (BMI) Body weight Body temperature Oxygen saturation Oxygen saturation in Arterial blood by Pulse oximetry Heart rate Heart rate Systolic And Diastolic Provider Name and Address Organization Details Last Updated DateTime 4 175.26 cm 27.1 kg/m2 71390.9 2 g 97.5 [degF] 99 % 99 % 63 /min 59 /min 164/87 mm[Hg] Naz JUAN [facility] & [place] 4 09:42:18 Date Recorded Body height Body mass index (BMI) Body weight Body temperature Oxygen saturation Oxygen saturation in Arterial blood by Pulse oximetry Heart rate Heart rate Systolic And Diastolic Provider Name and Address Organization Details Last Updated DateTime 4 175.26 cm 26.7 kg/m2 71803.2 2 g 98.1 [degF] 98 % 98 % 64 /min 61 /min 127/71 mm[Hg] Emma JUAN [facility] & [place] 4 09:31:10 Date Recorded Body height Body mass index (BMI) Body weight Body temperature Oxygen saturation Oxygen saturation in Arterial blood by Pulse oximetry Heart rate Heart rate Systolic And Diastolic Provider Name and Address Organization Details Last Updated DateTime 4 175.26 cm 25.9 kg/m2 15161.1 8 g 97.7 [degF] 99 % 99 % 52 /min 55 /min 133/70 mm[Hg] Naz JUAN [facility] & [place] 4 08:58:27 Date Recorded Body weight Body mass index (BMI) Body height Body temperature Oxygen saturation Oxygen saturation in Arterial blood by Pulse oximetry Systolic And Diastolic Provider Name and Address Organization Details Last Updated DateTime 3 16106.6 5 g 25.3 kg/m2 175.26 cm 98.2 [degF] 97 % 97 % 134/81 mm[Hg] Emma JUAN [facility] & [place] 3 08:57:20 Social History Question Answer Notes LastModified by Organizat ion Details LastModified Time Tobacco Smoking Status Never Smoker [facility] [place] 09/13/2022 08:53:57 What Is Your Level Of Caffeine Consumption? Moderate [email or web address] Information not available 09/13/2022 Sex: Unknown Functional Status Question Answer Note LastModified by Organizat ion Details LastModified Time Do you use any illicit or recreational drugs? No [email or web address] Information not available 09/13/2022 Do you or have you ever used any other forms of tobacco or nicotine? No Information not available 09/13/2022 What is your level of alcohol consumption? None [email or web address] Information not available 09/13/2022 Mental Status None [...] Diagnosis SNOMED-CT Code Diagnosis ICD10 Code Diagnosis IMO Codes Diagnosis Note 189107 Katelyn Gonzalez NP [facility] [place] [address] 03/15/2022 08:56:58 03/15/2022 10:28:25 History of polyp of colon 911844842 Z86.010 - colonoscop y scheduled History of heartburn 441 6689218 9109 Z87.19 - famotidine once daily or as needed- stay upright 30-60 minutes after eating- avoid trigger foods 137381 Barrera Rodney PA-C [facility] [place] [address]24[address] 2 09/13/2022 08:37:06 09/13/2022 09:23:23 Constipation 88705780 K59.00 History of polyp of colon 586932747 Z86.010 History of heartburn 683 4707234 9109 Z87.19 503053 Hector Cabezas MD [facility] [place] [address] 2 04/02/2023 09:30:18 04/02/2023 11:06:32 Liver enzymes level above reference range 415944617 R74.01 Constipation 18634122 K5 9.00 History of polyp of colon 073846266 Z86.010 History of heartburn 955 3672295 9109 Z87.19 620933 Hector Cabezas MD [facility] [address] [address] 05/14/2023 09:25:52 05/14/2023 10:26:30 Liver enzymes level above reference range 302058723 R74.01 Constipation 04565075 K5 9.00 History of polyp of colon 564046722 Z86.010 History of heartburn 030 7013355 9109 Z87.19 Anti-nucle ar factor detected 742670617 R76.8 [id number] Hector Cabezas MD [facility] [address] [place] [address] 08/09/2023 08:35:27 08/09/2023 09:47:48 Liver enzymes level above reference range 935441725 R74.01 Constipation 26624025 K5 9.00 History of polyp of colon 750321170 Z86.010 History of heartburn 959 3231718 9109 Z87.19 Anti-nucle ar factor detected 465185654 R76.8 Health Concerns Section Related Observation LastModified by Organization Detai ls LastModified Time None Recorded Concern Status LastModified by Organization Details LastModified Time None Recorded Advance Directives Directive None Recorded Payers Insurance Date Sequence Insurance Name Policy Number Policy Vides Covered Member ID Vides Member ID Guarantor Name 06/09/2024 1 [employer] (MEDICARE REPLACEMENT/A DVANTAGE - PPO) Hero Patino [id number] Hero Patino Notes Date Note Type Note Provider Name and Address Organization Details Recorded Time 03/15/2022 text/html ROS as noted in the HPI Patient is a 71-year-old male here today for follow-up after colonoscopy done 01/31/[address] Viera in [place]. referral was for repeat evaluation by Dr [...] concerns otherwise Katelyn Gonzalez NP [address] , [place], [address], [facility] & [place] 03/15/2022 11:58:50 09/13/2022 text/html ROS as noted in the HPI PREVIOUS (03/15/22): Patient is a 71-year-old male here today for follow-up after colonoscopy done 01/31/[address] Viera in [place]. referral was for repeat evaluation by Dr [...] was recommended. Barrera Rodney PA-C [address] , [place], [address], [facility] & [place] 09/13/2022 16:00:36 04/02/2023 text/html ROS as noted in the HPI PREVIOUS (03/15/22 Tiffanie Gonzalez): Patient is a 71-year-old male here today for follow-up after colonoscopy done 01/31/[address] Viera in [place]. referral was for repeat evaluation by Dr [...] bowel movements per day. BRIAN WHITT MSN, PUBLIC HEALTH NUTRITIONIST, SHIPPING LEAD PERSON-C [address], [place], [address], [place] - [facility] - [place] & [place] 04/02/2023 11:56:15 05/14/2023 text/html ROS as noted in the HPI PREVIOUS (03/15/22 Tiffanie Gonzalez): Patient is a 71-year-old male here today for follow-up after colonoscopy done 01/31/[address] Viera in [place]. referral was for repeat evaluation by Dr [...] hematemesis, hematochezia or melena. BRIAN WHITT MSN, PUBLIC HEALTH NUTRITIONIST, SHIPPING LEAD PERSON-C [address] [facility], [place], [address], [facility] - NT - [place] & [place] 05/14/2023 12:57:53 08/09/2023 text/html PREVIOUS (03/15/22 Tiffanie Gonzalez): Patient is a 71-year-old male here today for follow-up after colonoscopy done 01/31/[address] Viera in [place]. referral was for repeat evaluation by Dr [...] to the clinic today for follow-up. [facility] never called him to schedule [...] hematemesis, hematochezia or melena. BRIAN WHITT MSN, PUBLIC HEALTH NUTRITIONIST, SHIPPING LEAD PERSON-C [address], [place], [address], [place] - [facility] - [place] [facility] [place] 08/09/2023 10:07:11
--- OUTSIDE RECORDS SUMMARY | 2024-12-22 07:29 | XMS_ITS | Encounter Summary ---
Author Organization Healthcare Address [address] [place] [address] Care Team Providers Care Apple Turner Name Role Phone Luis Lawson MD Primary Care Provider [phone] Encounter Details Date Type Department Care Team (Late st Contact Info) Description 10/22/[address] [facility] Medicine Specialties [address] [place] [address] Caroline Tsang, RN Autoimmune hepatitis [...] EST Appointment [facility] [address], [address] [place] [address] 02/09/2025 10:00 AM EST Office Visit [facility] Medicine Specialties [address] [place] [address] Jenny Alberto MD [address] [place] [address] 05/06/2025 9:00 AM EST [facility] [address], [address] [place] [address] Myles Dyer MD [address] [place] [address] documented as of this encounter [...] documented as of this encounter Care Teams Apple Turner Relationship Specialty Start Date End Date Luis Lawson MD [address] [place] [address] PCP - General 02/25/24 11/02/24 documented as of this encounter
--- OUTSIDE RECORDS SUMMARY | 2024-12-22 07:29 | XMS_ITS | Encounter Summary ---
Author Organization Healthcare Address [address] [place] [address] Care Team Providers Care Career Development Specialist Name Role Phone Audi Howell Primary Care Provider [phone] Encounter Details Date Type Department Care Team [...] 02/09/2025 8:30 AM EST Appointment [facility] Ultrasound [address] [place] [address] 02/09/2025 10:00 AM EST Office Visit [facility] Medicine Specialties [address], [address] [place] [address] Jenny Alberto MD [address] [place] [address] 05/06/2025 9:00 AM EST Office Visit [facility] Medicine Specialties [address] [place] [address] Myles Dyer MD [address] [place] [address] documented as of this encounter [...] documented as of this encounter Care Teams Career Development Specialist Relationship Specialty Start Date End Date Audi Howell DO [address] [place] [address] PCP - General 11/03/24 documented as of this encounter
--- OUTSIDE RECORDS SUMMARY | 2024-12-22 07:29 | XMS_ITS | Encounter Summary ---
Author Organization Healthcare Address [address] [place] [address] Care Team Providers Care Triple Air Valve Tester Name Role Phone Audi Howell Serafin DO Primary Care Provider [phone] Encounter Details Date Type Department Care Team (Late Contact Info) Description 12/08/2024 Results Follow-Up [facility] Medicine Specialties [address], [address] [place] [address] Jenny Alberto MD [address] [place] [address] Social History Tobacco Use Types [...] [facility] Ultrasound [address], [address] [place] [address] 02/09/2025 10:00 AM EST Office Visit [facility] Medicine Specialties [address], [address] [place] [address] Jenny Alberto MD [address] [place] [address] 05/06/2025 9:00 AM EST Office Visit [facility] Medicine Specialties [address], [address] [place] [address] Myles Dyer MD [address] [place] [address] documented as of this encounter [...] documented as of this encounter Care Teams Triple Air Valve Tester Relationship Specialty Start Date End Date Audi Howell DO [address] [facility] [address] [place] [address] PCP - General 11/03/24 documented as of this encounter
--- OUTSIDE RECORDS SUMMARY | 2024-12-22 07:29 | XMS_ITS | Encounter Summary ---
Author Organization Healthcare Address [address] [place] [address] Care Team Providers Care Plastic Jig And Fixture Builder Name Role Phone Luis Lawson MD Primary Care Provider [phone] Audi Howell DO Primary Care Provider [phone] Encounter Details Date Type Department Care Team (Late st Contact Info) Description 10/15/2024 Results Follow-Up [facility] Medicine Specialties [address], [address] [place] [address] Bjorn Cano MD [address] [place] [address] Social History Tobacco Use Types [...] Appointment [facility] Ultrasound [address], [address]nd [place] [address] 02/09/2025 10:00 AM EST Office Visit [facility] Medicine Specialties [address], [address] [place] [address] Jenny Alberto MD [address] [place] [address] 05/06/2025 9:00 AM EST Office Visit [facility] Medicine Specialties [address], [address] [place] [address] Myles Dyer MD [address] [email or web address] [address] [place] [address] documented as of this encounter [...] documented as of this encounter Care Teams Plastic Jig And Fixture Builder Relationship Specialty Start Date End Date Luis Lawson MD [address] [place] [address] [place] [address] PCP - General 02/25/24 11/02/24 Audi Howell DO [address] [place] [address] PCP - General 11/03/24 documented as of this encounter
--- OUTSIDE RECORDS SUMMARY | 2024-12-22 07:29 | XMS_ITS | Encounter Summary ---
Author Organization Healthcare Address [address] [place] [address] Care Team Providers Care Rolling Attendant Name Role Phone Audi Howell Primary Care Provider [phone] Encounter Details Date Type Department Care Team (Late st Contact Info) Description 11/05/2024 Telephone [facility] Medicine Specialties [address], [address] [place] [address] Lori Levi, RN [facility]IC[facility] Social [...] pls send a CMV PCR order to [facility]? I placed the order. documented in this encounter Plan of Treatment Upcoming Encounters Date Type Department Care Team (Late st Contact Info) Description 02/09/2025 8:30 AM EST Appointment [facility] Ultrasound [address], [address]nd [place] [address] 02/09/2025 10:00 AM EST Office Visit [facility] Medicine Specialties [address], [address] [place] [address] Jenny Alberto MD [address] [place] [address] 05/06/2025 9:00 AM EST Office Visit [facility] Medicine Specialties [address], [address]nd [place] [address] Myles Dyer MD [address] [place] [address] documented as of this encounter Visit Diagnoses [...] Attendant Relationship Specialty Start Date End Date Audi Howell DO [address] [place] [address] PCP - General 11/03/24 documented as of this encounter
--- OUTSIDE RECORDS SUMMARY | 2024-12-22 07:29 | XMS_ITS | Encounter Summary ---
Author Organization Healthcare Address [address] [place] [place] [address] Care Team Providers Care Light Coil Winder Name Role Phone Audi Howell Primary Care Provider [phone] Encounter Details Date Type Department Care Team (Late st Contact Info) Description 11/20/2024 Orders Only [facility] Medicine Specialties [address], [address] [place] [address] Provider, [address] [address] Social History Tobacco Use Types [...] 02/09/2025 8:30 AM EST Appointment [facility] Ultrasound [address] [place] [address] 02/09/2025 10:00 AM EST Office Visit [facility] Medicine Specialties [address], [address] [place] [address] Jenny Alberto MD [address] [place] [address] 05/06/2025 9:00 AM EST Office Visit [facility] Specialties [address], [address]nd [place] [address] Myles Dyer MD [address] [facility] [address] [place] [address] documented as of this encounter [...] documented as of this encounter Care Teams Light Coil Winder Relationship Specialty Start Date End Date Audi Howell, [address] [place] [address] [place] [address] PCP - General 11/03/24 documented as of this encounter
--- OUTSIDE RECORDS SUMMARY | 2024-12-22 07:30 | XMS_ITS | Encounter Summary ---
Author Organization [facility] Address [address] [place] [address] Care Team Providers Care Cargo Handler Name Role Phone Audi Howell DO Primary Care Provider [phone] Reason for Referral * Medications - Closed Specialty Diagnoses / Procedures Referred By Contac t Referred To Contact Diagnoses Autoimmune hepatitis (CMS/HCC) Jenny Alberto MD [address] [address] Phone: tel: fax: Referral ID Status Reason Start Date Expiration Date Visits Re quested Visits Authorized [id number] Closed 1 1 Reason for Visit * Reason Comments Med Refill Encounter Details Date Type Department Care Team (Late st Contact Info) Description 12/16/2024 Refill [facility] Medicine Specialties [address] [place] [address] Bjorn Cano MD [id number] [place] [address] Autoimmune hepatitis (CMS/HCC) (Primary Dx) Social History Tobacco Use Types Packs/Day Years [...] encounter Miscellaneous Notes * Telephone Encounter - Audi Cody PharmD - 12/16/2024 9:20 AM EDT Refill request does not meet protocol. Sending to clinic for review. documented in this encounter Plan of Treatment Upcoming Encounters Date Type Department Care Team (Late st Contact Info) Description 02/09/2025 8:30 AM EST Appointment [facility] Ultrasound [address] [place] [address] 02/09/2025 10:00 AM EST Office Visit [facility] Medicine Specialties [address], [address] [place] [address] Jenny Alberto MD [address] [facility] [address] [place] [address] 05/06/2025 9:00 AM EST Office Visit [facility] Medicine Specialties [address] [place] [address] Myles Dyer MD [address] [place] [address] documented as of this encounter Visit Diagnoses [...] documented as of this encounter Care Teams Cargo Handler Relationship Specialty Start Date End Date Audi Howell DO [address] [place] [address] PCP - General 11/03/24 documented as of this encounter
--- OUTSIDE RECORDS SUMMARY | 2024-12-22 07:30 | XMS_ITS | Encounter Summary ---
Author Organization Healthcare Address [address] [place] [address] Care Team Providers Care Liver Trimmer Name Role Phone DanteAudi Serafin DO Primary Care Provider [phone] Encounter Details Date Type Department Care Team (Late st Contact Info) Description 12/08/2024 Orders Only [facility] [address] [facility] [address] [place] [address] Jenny Alberto MD [address] [facility] [address] [place] [address] Autoimmune hepatitis (CMS/HCC) (Primary Dx) [...] Progress Notes - Jenny Alberto MD - 12/08/2024 7:35 AM EDT - labs reviewed- liver enzymes much improved- IgG normal - Decrease prednisone 30mg/d to 20mg/day and repeat labs in 2 weeks. - I sent a new rx for prednisone 20mg/day documented in this encounter Plan of Treatment Upcoming Encounters Date Type Department Care Team (Late st Contact Info) Description 02/09/2025 8:30 AM EST Appointment [facility] Ultrasound [address] [place] [address] 02/09/2025 10:00 AM EST Office Visit [facility] Medicine Specialties [address], [address] [place] [address] Jenny Alberto MD [address] [place] [address] 05/06/2025 9:00 AM EST Office Visit [facility] Medicine Specialties [address], [address] [place] [address] Myles Dyer MD [address] [place] [address] documented as of this encounter [...] documented as of this encounter Care Teams Liver Trimmer Relationship Specialty Start Date End Date Audi Howell DO [address] [facility] [address] [place] [address] (work) PCP - General 11/03/24 documented as of this encounter
--- OUTSIDE RECORDS SUMMARY | 2024-12-22 07:30 | XMS_ITS | Encounter Summary ---
Author Organization Healthcare Address [address] [place] [address] Care Team Providers Care Clinical Product Manager Name Role Phone Luis Lawson MD Primary Care Provider [phone] Encounter Details Date Type Department Care Team (Late st Contact Info) Description 09/01/2024 Telephone [facility] Medicine Specialties [address], [address] [place] [address] Caroline Tsang, RN Social History Tobacco Use [...] get labs around 10/24/24 Fax orders to [facility] Requested ER notes * Telephone Encounter [...] AM EDT Uploaded IgG CMP CBC Per [facility], no PT/INR drawn Requested AFP results [...] to the following: Comprehensive Metabolic Panel, Plasma [[id number]] on 08/29/2024 documented in this encounter Plan of Treatment Upcoming Encounters Date Type Department Care Team (Late st Contact Info) Description 02/09/2025 8:30 AM EST Appointment [facility] Ultrasound [address] [place] [address] 02/09/2025 10:00 AM EST Office Visit [facility] Medicine Specialties [address], [address] [place] [address] Jenny Alberto MD [address] [facility] [address] [place] [address] 05/06/2025 9:00 AM EST Office Visit [facility] Medicine Specialties [address], [address] [place] [address] Myles Dyer MD [address] [facility] [address] [place] [address] documented as of this encounter [...] as of this encounter Care Teams Clinical Product Manager Relationship Specialty Start Date End Date Luis Lawson MD [address] [place] [address] PCP - General 02/25/24 11/02/24 documented as of this encounter
--- OUTSIDE RECORDS SUMMARY | 2024-12-22 07:30 | XMS_ITS | Encounter Summary ---
Author Organization Healthcare Address [address] [place] [address] Care Team Providers Care Air Reduction Equipment Operator Name Role Phone Audi Howell Primary Care Provider Encounter Details Date Type Department Care Team (Late Contact Info) Description 12/18/2024 Orders Only [facility] Medicine Specialties [address], [address] [place] [address] Myles Dyer MD [address] [place] [address] Social History Tobacco Use Types [...] Description 02/09/2025 8:30 AM EST Appointment [facility] Ultrasound [address], [address] [place] [address] 02/09/2025 10:00 AM EST Office Visit [facility] Medicine Specialties [address], [address] [place] [address] Jenny Alberto MD [address] [place] [address] 05/06/2025 9:00 AM EST Office Visit [facility] Medicine Specialties [address], [address] [place] [address] Myles Dyer MD [address] [place] [address] documented as of this encounter Procedures Procedure Name Priority Date/Time Associated Diagnosis Comments URINE CULTURE Routine 12/18/2024 2:37 PM EDT CARDIOLIPIN ANTIBODY, IGA (SO) Routine 12/18/2024 2:36 PM EDT BETA 2 GLYCOPROTEIN 1 IGG,IGA,IGM Routine 12/18/2024 2:36 PM EDT LUPUS ANTICOAGULANT PROFILE Routine 12/18/2024 2:36 PM EDT DRVVT Routine 12/18/2024 2:36 PM EDT RPR TITER Routine 12/18/2024 2:35 PM EDT documented in this encounter Results * Urine Culture (12/18/2024 2:37 PM EDT) Urine Urine specimen obtained by clean catch procedure / Unknown us Myles Dyer MD LAB MICROBIOLOGY - GENERAL ORD ERABLES Final Result * Cardiolipin antibody, IgA (12/18/2024 2:36 PM EDT) Blood Venous blood specimen / Unknown us Myles Dyer MD LAB BLOOD ORDERABLES Final Res ult * Lupus Anticoagulant Profile (12/18/2024 2:36 PM EDT) Blood Venous blood specimen / Unknown Result [facility] Myles Dyer MD LAB BLOOD ORDERABLES Final Res ult * DRVVT (12/18/2024 2:36 PM EDT) Blood Venous blood specimen / Unknown Result [facility] Myles Dyer MD LAB BLOOD ORDERABLES Final Res ult * Beta-2 Glycoprotein Antibodies (12/18/2024 2:36 PM EDT) Blood Venous blood specimen / Unknown Result [facility] Myles Dyer MD LAB BLOOD ORDERABLES Final Res ult * RPR Titer (12/18/2024 2:35 PM EDT) Blood Venous blood specimen / Unknown Result [facility] Myles Dyer MD LAB BLOOD ORDERABLES Final Res ult documented in this encounter Visit Diagnoses Not [...] as of this encounter Care Teams Air Reduction Equipment Operator Relationship Specialty Start Date End Date Audi Howell DO [address] [place] [address] [place] [address] PCP - General 11/03/24 documented as of this encounter
--- OUTSIDE RECORDS SUMMARY | 2024-12-22 07:30 | XMS_ITS | Encounter Summary ---
Author Organization Healthcare Address [address] [place] [address] Care Team Providers Care Forging Press Lever Tender Name Role Phone Luis Lawson MD Primary Care Provider [phone] Audi Howell DO Primary Care Provider [phone] Reason for Referral * Genetic Testing (Routine) - Authorized Specialty Diagnoses / Procedures Referred By Contac t Referred To Contact Diagnoses Autoimmune hepatitis (CMS/HCC) Procedures IgG IgG Bjorn Cano MD [address] [address] Phone: tel: fax: Referral ID Status Reason Start Date Expiration Date V isits Requested Visits Authorized [id number] Authorized 09/22/2024 03/24/2026 1 1 Encounter Details Date Type Department Care Team (Late st Contact Info) Description 09/22/2024 Results Follow-Up [facility] Medicine Specialties [address] [place] [address] Bjorn Cano MD [address] [facility] [address] [place] [address] Social History Tobacco Use Types [...] Description 02/09/2025 8:30 AM EST Appointment [facility] Ultrasound [address] [place] [address] 02/09/2025 10:00 AM EST Office Visit [facility] Medicine Specialties [address], [address] [place] [address] Jenny Alberto MD [address] [place] [address] 05/06/2025 9:00 AM EST Office Visit [facility] Medicine Specialties [address], [address] [place] [address] Myles Dyer MD [address] [place] [address] documented as of this encounter Results * Protime-INR (11/03/2024 10:14 AM EDT) Prothrombin Time 13.7 12.0 - 14.3 sec LAB COAGULATION METHOD 11/03/2024 11:54 AM EDT [facility] INR 1.0 0.9 - 1.1 LAB COAGULATION METHOD 11/03/2024 11:54 AM EDT [facility] Blood Venous blood specimen / Unknown Venipuncture / Unknown 11/03/2024 10:14 AM EDT 11/03/2024 10:14 AM EDT Narrative [facility] - 11/03/2024 11:54 AM EDT OPTIMAL INR RANGES FOR PATIENT ON ORAL ANTICOAGULANT THERAPY Prevention of venous thromboembolism INR 2.0 to 3.0 In patients with heart disease: Atrial fibrillation INR 2.0 to 3.0 Valvular heart disease INR 2.0 to 3.0 Tissue heart valves INR 2.0 to 3.0 Mechanical prosthetic valves INR 2.5 to 3[address] INR 2.5 to 3.5 us Bjorn Cano MD LAB BLOOD ORDERABLES Final Resul t [facility] [address] [place] [address] * Comprehensive metabolic panel (10/13/2024 7:56 AM EDT) Blood Venous blood specimen / Unknown us Bjorn Cano MD LAB BLOOD ORDERABLES Final Resul t Performing Organization Address City/[facility] Co de Phone Number EXTERNAL LAB * CBC and differential (10/13/2024 7:56 AM EDT) Blood Venous blood specimen / Unknown us Bjorn Cano MD LAB BLOOD ORDERABLES Final Resul t Performing Organization Address City/[facility]/ZIP Co de Phone Number EXTERNAL LAB * IgG (10/13/2024 7:56 AM EDT) Blood Venous blood specimen / Unknown us Bjorn Cano MD LAB BLOOD ORDERABLES Final Resul t Performing Organization Address [facility] Co de Phone Number EXTERNAL [...] documented as of this encounter Care Teams Forging Press Lever Tender Relationship Specialty Start Date End Date Luis Lawson MD [address] [place] [address] [place] [address] PCP - General 02/25/24 11/02/24 Audi Howell DO [address] [facility] [address] [place] [address] PCP - General 11/03/24 documented as of this encounter
[2024-12-22 08:05] LABS: Hematocrit 43.1 % (42.0-52.0); Hemoglobin 14.6 g/dL (14.1-18.0); Immature Granulocytes % 0.5 %; Mean Corpuscular HGB Conc 33.9 g/dL (31.8-35.4); Mean Corpuscular Hemoglobin 32.4 pg (27.0-31.2); Mean Corpuscular Volume 95.6 fl (80-94); Nucleated Red Blood Cells % 0 %; Platelet Count 130 K/mm3 (142-424); Red Blood Count 4.51 M/mm3 (4.60-6.20); Red Cell Distribution Width-SD 50.2 fL; White Blood Count 7.8 K/mm3 (4.8-10.8)
[2024-12-22 08:14] LABS: Albumin Level 3.8 g/dl (3.5-5.0); Chloride 100 mmol/L (98-107); Potassium 4.3 mmoL/L (3.5-5.1); Sodium 138 mmol/L (136-145)
[2024-12-22 08:17] LABS: Alanine Aminotransferase 57 U/L (12-78); Albumin/Globulin Ratio 1.3 (1.1-1.8); Alkaline Phosphatase 63 U/L (38-126); Anion Gap 12.3 mEq/L (5-15); Aspartate Amino Transferase 40 U/L (17-59); Bilirubin,Total 1.0 mg/dl (0.2-1.3); Blood Urea Nitrogen 19 mg/dl (9-20); Carbon Dioxide 30 mmol/L (22.0-30.0); Creatinine,Serum 0.80 mg/dl (0.66-1.25); Estimated Glomerular Filt Rate 94 ml/min (>60); GFR (African American) 114 ML/MIN (>60); Globulin 3.0 g/dL (1.3-3.2); Total Protein,Serum 6.8 g/dl (6.3-8.2)
[2024-12-22 08:18] LABS: Calcium 9.2 mg/dl (8.4-10.2); Glucose 96 mg/dl (74-100)
[2024-12-23 11:21] LABS: Immunoglobulin G, Qn 1149 mg/dL (603-1613)
== END 2024-12-22 23:59 | disposition home or self-care (01) ==
LOC: LAB 07:27
PROVIDERS: PCP Internal Medicine; Visit Provider Internal Medicine Gastroenterology
DX: K75.4 Autoimmune hepatitis (principal)
CPT/HCPCS: 36415; 80053; 82784; 85025

== ENCOUNTER 2025-01-05 07:19 | Outpatient (CLI) | payer MEDICARE, SELFPAY ==
--- OUTSIDE RECORDS SUMMARY | 2025-01-05 07:22 | XMS_ITS | Data Portability ---
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 3 year repeat was recommended. He plans to have this done with Dr. Viera at [facility]. 2) Constipation: Well managed on Miralax once daily. 3) Heartburn: Resolved. He has stopped acid reducing medications. f/u PRN [email or web address] Not available 09/13/2022 16:00:19 04/02/2023 04/02/2023 71-year-old male with: 1) Elevated liver enzymes -Will obtain lab workup per below to rule out hepatitis, autoimmune, or hereditary/metabo lic causes. -Will order liver ultrasound -Unable to perform NOLASCO Fibrosure test today as patient is not fasting. Patient was given printed lab order and instructed to get this lab drawn at [facility] when he is fasting and [...] have this done with Dr. Viera at [facility]. 3) Constipation: Well managed on Miralax once daily. 4) Heartburn: Resolved. He has stopped acid reducing medications. f/u 6 weeks [email or web address] Not available 04/02/2023 11:55:33 05/14/2023 05/14/2023 72-year-old [...] -Will order CT guided liver biopsy at [facility] for further evaluation -Diet and exercise [...] have this done with Dr. Viera at [facility]. 4) Constipation: Well managed on Miralax once daily. 5) Heartburn: Resolved. He has stopped acid reducing medications. F/u after liver biopsy [email or web address] Not available 05/14/2023 12:55:05 08/09/2023 08/09/2023 72-year-old [...] -Will order CT guided liver biopsy at [facility]. Order was sent to [facility] Interventional Radiology x2, the patient was never called to schedule the procedure. Ordered liver biopsy to be performed at [facility] yesterday. -Diet and exercise counseled -Continue to [...] have this done with Dr. Viera at [facility]. 4) Constipation: Well managed on Miralax once daily. 5) Heartburn: Resolved. He has stopped acid reducing medications. F/u after liver biopsy [email or web address] Not available 08/09/2023 10:06:50 Plan of Treatment Reminders Order Date Submit Date Provider Last Modified By Organization Details Last Modified Time Details Appointments None recorded. Lab CBC 2023 024 [facility], [address], [place], [address], 4 11:12:44 CMP, serum or plasma 2023 024 [facility], [address], [address], [place], [address], 4 11:12:42 hepatic function panel, serum 2023 024 [facility], [address], [address], [place], [address], 4 11:14:13 hepatitis panel (A+B+C), acute, serum 2023 024 [facility], [address], [address], [place], [address], 4 11:14:15 hepatitis B surface Ab, quantitat pepe, serum 2023 024 [facility], [address], [address], [place], [address], 4 11:14:20 hepatitis A virus Ab, qualitati ve, immunoass ay, serum 2023 024 [facility], [address], [address], [place], [address], 4 11:14:27 actin smooth muscle IgG Ab, quant, serum 2023 024 [facility], [address], [address], [place], [address], 4 11:14:21 mitochond rial M2 igg Ab, serum 2023 024 [facility], [address], [address], [place], [address], 4 11:14:22 igg, quantitat pepe, serum 2023 024 [facility], [address], [address], [place], [address], 4 11:14:25 GONZALO (antinucl ear antibodie s) screen, serum 2023 024 [facility], [address], [address], [place], [address], 4 11:14:23 HFE gene mutation analysis, blood or tissue 2023 024 [facility], [address], [address], [place], [address], 4 11:14:18 iron + TIBC + ferritin, serum 2023 024 [facility], [address], [address], [place], [address], 4 11:14:09 alpha-1-a ntitrypsi n (aat), QN, serum 2023 024 [email or web address] [facility], [address], [place], [address], 4 10:37:40 alpha-1-a ntitrypsi n (aat), QN, serum 2023 024 [facility], [address], [address], [place], [address], 4 11:14:14 CBC 2023 024 [facility], [address], [address], [place], [address], 4 11:14:12 PT/INR 2023 024 [facility], [address], [address], [place], [address], 4 11:14:16 nonalcoho lic steatohep atitis + fibrosis panel, serum or plasma 2023 024 [facility], [address], [address], [place], [address], 4 11:14:10 afp (alpha-fe toprotein ) tumor marker, serum or plasma 2023 024 [facility], [address], [address], [place], [address], 4 11:14:19 Referral None recorded. Procedures biopsy, [...] Family history of liver disease. [address] Interventional Radiology, [address], [place], [address], 4 13:49:01 Surgeries None recorded. Imaging US, liver 2023 024 [facility] ([facility] Sched[facility]), [address] [facility], [place], [address], 4 10:48:53 Medication Orders polyethyl jeffrey glycol 3350 17 gram/dose oral powder 2022 024 [facility], [address] [place] [address], [facility] [address], [place], [address], 4 10:33:01 famotidin e 20 mg tablet 2022 023 [facility], [address] [place] [address], [facility], [place], [address], 4 10:15:02 Patient TargetsNo targets recorded. Patient InstructionsNo instructions recorded. Reason for Referral None Reported. Results Created Date Observation Date Name Description Value Unit Range Abnormal Flag Note LastModifiedBy Organization Detail LastModifiedTime 04/02/19 24 04/03/2023 FE+TI BC+FE R iron bind.cap.(TI BC) 396 ug/dL 250-45 0 Not Available [facility] ([facility]) [address] [place], [address], 04/19/2023 11:14:09 04/02/19 24 04/03/2023 FE+TI BC+FE R UIBC 168 ug/dL 111-34 3 Not Available [facility] ([facility]) [address] [place], [address], 04/19/2023 11:14:09 04/02/19 24 04/03/2023 FE+TI BC+FE R iron 228 ug/dL 38-169 above high normal Not Available [facility] ([facility]) [address] [place], [address], 04/19/2023 11:14:09 04/02/19 24 04/03/2023 FE+TI BC+FE R iron saturation 58 % 15-55 above high normal Not Available [facility] ([facility]) [address] [place], [address], 04/19/2023 11:14:09 04/02/19 24 04/03/2023 FE+TI BC+FE R ferritin 66 NG/mL 30-400 Not Available [facility] ([facility]) [address] [place], [address], 04/19/2023 11:14:04/02/19 24 04/02/2023 NOLASCO FIBRO SURE( R) PLUS methodology: COMMEN T The christopher margaret teste d are perfo rmed by Fibro Sure- Speci fic metho ds. Not inten ded for use with other diagn ostic consi derat ions. Not Available [facility] ([facility]) [address] [place], [address], 04/19/2023 11:14:10 04/02/19 24 04/02/2023 NOLASCO FIBRO SURE( R) PLUS interpretati ons: COMMEN T Quant itati ve resul ts of 10 bioch emica ls in combi natio n with age and gende r, are christopher zed using a compu tatio nal algor ithm to provi de a quant itati ve surro gate marke r (0.0- 1.0) of liver fibro sis (Henderson vir F0-F4 ), hepat ic steat osis [...] had signi fican t NAFLD fibro sis (Henderson vir F2-F4 ) and 11% had cirrh [...] y of 71%.[ 3] Not Available [facility] ([facility]) [address] [facility] [place], [address], 04/19/2023 11:14:10 04/02/19 24 04/02/2023 NOLASCO FIBRO [...] F4 - Cirrh osis Not Available [facility] ([facility]) [address] [place], [address], 04/19/2023 11:14:10 04/02/19 24 04/02/2023 NOLASCO FIBRO SURE( R) PLUS steatosis scoring COMMEN T <=0.4 0 = S0 - No Steat osis (<5%) 0.40 - 0.55 = S1 - Mild Steat osis (but Clini koki Signi fican t) (5-33 %) >0.55 = S2S3- Moder ate to Sever e Steat osis (Clin icall y Signi fican t) (34-1 00%) Not Available [facility] ([facility]) [address] [place], [address], 04/19/2023 11:14:10 04/02/19 24 04/02/2023 NOLASCO FIBRO SURE( R) PLUS nolasco scoring COMMEN T <=0.2 5 = N0 - No NOLASCO 0.25 - 0.50 = N1 - Mild NOLASCO 0.50 - 0.75 = N2 - Moder ate NOLASCO >0.75 = N3 - Sever e NOLASCO Not Available [facility] ([facility]) [address] [place], [address], 04/19/2023 11:14:10 04/02/19 24 04/02/2023 NOLASCO FIBRO [...] s of fibro sis. Not Available [facility] ([facility]) [address], [place], [address], 04/19/2023 11:14:10 04/02/19 24 04/02/2023 NOLASCO FIBRO SURE( R) PLUS comment: COMMEN T This test was devel oped and its perfo rmanc e nasim cteri stics deter mined by [employer]. It has not been clear ed or appro narinder by the Food and Drug Admin istra tion. For quest ions regar ding this repor t pleas e conta ct custo reid servi ce at [phone]. Refer ences : 1. Marciano muñoz V. [...] 2017; 30:56 9-577 . Not Available [facility] ([facility]) [address] [place], [address], 04/19/2023 11:14:10 04/02/19 24 04/03/2023 NOLASCO FIBRO SURE( R) PLUS fibrosis score 0.89 0.00-0 .21 above high normal Not Available [facility] ([facility]) [address] [place], [address], 04/19/2023 11:14:10 04/02/19 24 04/03/2023 NOLASCO FIBRO SURE( R) PLUS fibrosis stage COMMEN T F4 - Cirrh osis Not Available [facility] ([facility]) [address] [facility], [place], [address], 04/19/2023 11:14:10 04/02/19 24 04/03/2023 NOLASCO FIBRO SURE( R) PLUS steatosis score 0.50 0.00-0 .40 above high normal Not Available [facility] ([facility]) [address] [place], [address], 04/19/2023 11:14:10 04/02/19 24 04/03/2023 NOLASCO FIBRO SURE( R) PLUS steatosis grade COMMEN T S1 - Mild Steat osis (But Clini koki Signi fican t) (5-33 %) Not Available [facility] ([facility]) [address] [place], [address], 04/19/2023 11:14:10 04/02/19 24 04/03/2023 NOLASCO FIBRO SURE( R) PLUS nolasco score 0.96 0.00-0 .25 above high normal Not Available [facility] ([facility]) [address] [place], [address], 04/19/2023 11:14:10 04/02/19 24 04/03/2023 NOLASCO FIBRO SURE( R) PLUS nolasco grade COMMEN T N3 - Sever e NOLASCO Not Available [facility] ([facility]) [address] [place], [address], 04/19/2023 11:14:10 04/02/19 24 04/03/2023 NOLASCO FIBRO SURE( R) PLUS alpha 2-macroglobu mason, qn 526 mg/dL 110-27 6 above high normal Not Available [facility] ([facility]) [address] [place], [address], 04/19/2023 11:14:10 04/02/19 24 04/03/2023 NOLASCO FIBRO SURE( R) PLUS haptoglobin 119 mg/dL 34-355 Not Available [facility] ([facility]) [address] [place], [address], 04/19/2023 11:14:10 04/02/19 24 04/03/2023 NOLASCO FIBRO SURE( R) PLUS apolipoprote in A-1 150 mg/dL 101-17 8 Not Available [facility] ([facility]) [address] [place], [address], 04/19/2023 11:14:10 04/02/19 24 04/03/2023 NOLASCO FIBRO SURE( R) PLUS bilirubin, total 0.9 mg/dL 0.0-1. 2 Not Available [facility] ([facility]) [address] [place], [address], 04/19/2023 11:14:10 04/02/19 24 04/03/2023 NOLASCO FIBRO SURE( R) PLUS GGT 61 IU/L 0-65 Not Available [facility] ([facility]) [address] [place], [address], 04/19/2023 11:14:10 04/02/19 24 04/03/2023 NOLASCO FIBRO SURE( R) PLUS ALT (SGPT) p5p 131 IU/L 0-55 above high normal Not Available [facility] ([facility]) [address] [place], [address], 04/19/2023 11:14:10 04/02/19 24 04/03/2023 NOLASCO FIBRO SURE( R) PLUS AST (SGOT) p5p 108 IU/L 0-40 above high normal Not Available [facility] ([facility]) [address] [place], [address], 04/19/2023 11:14:10 04/02/19 24 04/03/2023 NOLASCO FIBRO SURE( R) PLUS cholesterol, total 246 mg/dL 100-19 9 above high normal Not Available [facility] ([facility]) [address] [place], [address], 04/19/2023 11:14:10 04/02/19 24 04/03/2023 NOLASCO FIBRO SURE( R) PLUS glucose, serum 83 mg/dL 70-99 Not Available [facility] ([facility]) [address] [place], [address], 04/19/2023 11:14:10 04/02/19 24 04/03/2023 NOLASCO FIBRO SURE( R) PLUS triglyceride s 184 mg/dL 0-149 above high normal Not Available [facility] ([facility]) [address] [place], [address], 04/19/2023 11:14:10 04/02/19 24 04/03/2023 CBC, PLATE LET, NO DIFFE RENTI AL WBC 5.5 x10e3 /uL 3.4-10 .8 Not Available [facility] ([facility]) [address] [place], [address], 04/19/2023 11:14:12 04/02/19 24 04/03/2023 CBC, PLATE LET, NO DIFFE RENTI AL RBC 5.16 x10e6 /uL 4.14-5 .80 Not Available [facility] ([facility]) [address] [place], [address], 04/19/2023 11:14:12 04/02/19 24 04/03/2023 CBC, PLATE LET, NO DIFFE RENTI AL hemoglobin 16.7 g/dL 13.0-1 7.7 Not Available [facility] ([facility]) [address] [facility], [place], [address], 04/19/2023 11:14:12 04/02/19 24 04/03/2023 CBC, PLATE LET, NO DIFFE RENTI AL hematocrit 48.4 % 37.5-5 1.0 Not Available [facility] ([facility]) [address] [facility], [place], [address], 04/19/2023 11:14:12 04/02/19 24 04/03/2023 CBC, PLATE LET, NO DIFFE RENTI AL MCV 94 fL 79-97 Not Available [facility] ([facility]) [address] [facility], [place], [address], 04/19/2023 11:14:12 04/02/19 24 04/03/2023 CBC, PLATE LET, NO DIFFE RENTI AL MCH 32.4 pg 26.6-3 3.0 Not Available [facility] ([facility]) [address] [facility], [place], [address], 04/19/2023 11:14:12 04/02/19 24 04/03/2023 CBC, PLATE LET, NO DIFFE RENTI AL MCHC 34.5 g/dL 31.5-3 5.7 Not Available [facility] ([facility]) [address] [facility], [place], [address], 04/19/2023 11:14:12 04/02/19 24 04/03/2023 CBC, PLATE LET, NO DIFFE RENTI AL RDW 13.3 % 11.6-1 5.4 Not Available [facility] ([facility]) [address] [facility], [place], [address], 04/19/2023 11:14:12 04/02/19 24 04/03/2023 CBC, PLATE LET, NO DIFFE RENTI AL platelets 167 x10e3 /uL 150-45 0 Not Available [facility] ([facility]) [address] [facility], [place], [address], 04/19/2023 11:14:12 04/02/19 24 04/03/2023 CBC, PLATE LET, NO DIFFE RENTI AL NRBC DIRECTOR MEDICAL AFFAIRS Not Available [facility] ([facility]) [address] [facility], [place], [address], 04/19/2023 11:14:12 04/02/19 24 04/03/2023 HEPAT IC FUNCT ION PANEL (7) protein, total 9.5 g/dL 6.0-8. 5 above high normal Not Available [facility] ([facility]) [address] [facility], [place], [address], 04/19/2023 11:14:13 04/02/19 24 04/03/2023 HEPAT IC FUNCT ION PANEL (7) albumin 4.8 g/dL 3.8-4. 8 Not Available [facility] ([facility]) [address] [facility], [place], [address], 04/19/2023 11:14:13 04/02/19 24 04/03/2023 HEPAT IC FUNCT ION PANEL (7) bilirubin, total 0.9 mg/dL 0.0-1. 2 Not Available [facility] ([facility]) [address] [place], [address], 04/19/2023 11:14:13 04/02/19 24 04/03/2023 HEPAT IC FUNCT ION PANEL (7) bilirubin, direct 0.25 mg/dL 0.00-0 .40 Not Available [facility] ([facility]) [address] [facility], [place], [address], 04/19/2023 11:14:13 04/02/19 24 04/03/2023 HEPAT IC FUNCT ION PANEL (7) alkaline phosphatase 107 IU/L 44-121 Not Available [facility] ([facility]) [address] [facility], [place], [address], 04/19/2023 11:14:13 04/02/19 24 04/03/2023 HEPAT IC FUNCT ION PANEL (7) AST (SGOT) 97 IU/L 0-40 above high normal Not Available [facility] ([facility]) [address] [facility], [place], [address], 04/19/2023 11:14:13 04/02/19 24 04/03/2023 HEPAT IC FUNCT ION PANEL (7) ALT (SGPT) 106 IU/L 0-44 above high normal Not Available [facility] ([facility]) [address] [facility], [place], [address], 04/19/2023 11:14:13 04/02/19 24 04/02/2023 A1A, QUANT [...] ders to discu ss resul ts at 6-138 -345- GENE (0661 ). Test Detai ls: Two varia nts [...] es in the SERPI NA1 gene (NM_[id number] .4) was perfo rmed by multi plex [...] e nasim cteri stics deter mined by [employer]. It has not been clear ed [...] doi: 10.15 326/j copdf .3.32014. 0182. PMID: 94280 891; PMCID : PMC55 47524 . Yuval GRIFFITH, Glynn burton V, Monroe SANTOS. Alpha -1 Antit rypsi n Defic iency . 2005Jan 05 [Upda bhavesh 2019July 30]. In: [facility], [facility], Severino MEADOWS, et al., kanwal rs. GeneR james sams(R) [Inte rnet] . Girish dawson ([place]): [facility] of Girish Segura; 1992- 2020. Avail able from: https ://ww w.ncb i.nlm .nih. gov/b ooks/ NBK15 19/ Not Available [facility] ([facility]) [address] [place], [address], 04/19/2023 11:14:14 04/02/19 24 04/04/2023 A1A, QUANT +OH TYPE( RFX PHENO ) frgao-2-otzu trypsin, serum 165 mg/dL 101-18 7 Not Available [facility] ([facility]) [address] [place], [address], 04/19/2023 11:14:14 04/02/19 24 04/10/2023 A1A, QUANT [...] n and Comme nts. Not Available [facility] ([facility]) [address] [place], [address], 04/19/2023 11:14:14 04/02/19 24 04/10/2023 A1A, QUANT +OH TYPE( RFX PHENO ) electronical ly signed by: CINDA MORFIN, PHD Not Available [facility] ([facility]) [address] [place], [address], 04/19/2023 11:14:14 04/02/19 24 04/10/2023 A1A, QUANT +OH TYPE( RFX PHENO ) a1a rfx to phenotype NOT INDICA BHAVESH Not Available [facility] ([facility]) [address] [place], [address], 04/19/2023 11:14:14 04/02/19 24 04/03/2023 ACUTE HEPAT ITIS hep A Ab, IgM NEGATI VE negati ve Not Available [facility] ([facility]) [address] [place], [address], 04/19/2023 11:14:15 04/02/19 24 04/03/2023 ACUTE HEPAT ITIS HBsAg screen NEGATI VE negati ve Not Available [facility] ([facility]) [address] [place], [address], 04/19/2023 11:14:15 04/02/19 24 04/03/2023 ACUTE HEPAT ITIS hep B core Ab, IgM NEGATI VE negati ve Not Available [facility] ([facility]) [address] [facility], [place], [address], 04/19/2023 11:14:15 04/02/19 24 04/03/2023 ACUTE HEPAT ITIS HCV Ab NON REACTI VE non reacti ve Not Available [facility] ([facility]) [address] [facility], [place], [address], 04/19/2023 11:14:15 04/02/19 24 04/03/2023 ACUTE HEPAT ITIS interpretati on: COMMEN T Not infec bhavesh with HCV unles s early or acute infec tion is suspe cted (whic h may be delay ed in an immun ocomp romis ed indiv idual ), or other evide nce exist s to indic ate HCV infec tion. Not Available [facility] ([facility]) [address] [facility], [place], [address], 04/19/2023 11:14:15 04/02/19 24 04/03/2023 PROTH ROMBI [...] range 2.5 - 3.5 Not Available [facility] ([facility]) [address] [facility], [place], [address], 04/19/2023 11:14:16 04/02/19 24 04/03/2023 PROTH ROMBI N TIME (PT), SERIA L prothrombin time 12.0 sec 9.1-12 .0 Not Available [facility] ([facility]) [address] [facility], [place], [address], 04/19/2023 11:14:16 04/02/19 24 04/03/2023 PROTH PARAS N TIME (PT), SERIA L pdf . Not Available [facility] ([facility]) [address], [place], [address], 04/19/2023 11:14:16 04/02/19 24 04/18/2023 HERED .HEMO [...] ders to discu ss resul ts at 6-796 -345- GENE (5851 ). Test Detai ls: Three varia nts christopher zed: c.845 G>A (p.Cy s282T yr), commo nly refer red to as C282Y c.187 C>G (p.Hi s63As p), commo nly refer red to as H63D c.193 A> T (p.Se r65Cy s), commo nly refer red to as S65C Metho ds/Li mitat ions: DNA Christopher sis of the HFE gene ([id number] .4) was perfo rmed by PCR ampli [...] 3. doi: 10.10 / p.243 30. PMID: 55674 290; PMCID : PMC31 37236 . Robert G, Shabana ot P, Brandon [...] hg.20 15.12 8. Epub 2014 8. PMID: 75109 218; PMCID : PMC49 38090 . Not Available [facility] ([facility]) [address], [place], [address], 04/19/2023 11:14:18 04/02/19 24 04/18/2023 HERED .HEMO CHROM ATOSI S, DNA reviewed by: FAITH [employer] [place] nent perfo rmed at [facility] RTP Profe ssion al [place] nent perfo rmed by: Marcell lieberman, Ph.D. , [facility] Dire tor, [employer] [address] [place] [address] Not Available [facility] ([facility]) [address] [facility], [place], [address], 04/19/2023 11:14:18 04/02/19 24 04/03/2023 AFP, SERUM [...] the prese nce or absen ce of [facility] disea se. This test is not inter preta ble in pregn ant femal es. Not Available [facility] ([facility]) [address] [facility], [place], [address], 04/19/2023 11:14:19 04/02/19 24 04/03/2023 HEPAT ITIS B SURF AB QUANT hepatitis B surf Ab quant 3.3 mIU/m L immuni ty>9.9 below low normal Statu s of Immun ity Anti- HBs Level ----- ----- ----- --- ----- ----- ---- Incon siste nt with Immun ity 0.0 - 9.9 Consi stent with Immun ity >9.9 Not Available [facility] ([facility]) [address] [facility], [place], [address], 04/19/2023 11:14:20 04/02/19 24 04/03/2023 ACTIN (SMOO [...] bilia ry cirrh osis. Not Available [facility] ([facility]) [address] [place], [address], 04/19/2023 11:14:21 04/02/19 24 04/03/2023 MITOC HONDR IAL (M2) ANTIB LEANDRO mitochondria l (M2) antibody <20.0 units 0.0-20 .0 Negat pepe 0.0 - 20.0 Equiv ocal 20.1 - 24.9 Posit pepe >24.9 Mitoc hondr ial (M2) Antib odies are found in 90-96 % of patie nts with prima ry bilia ry cirrh osis. Not Available [facility] ([facility]) [address] [place], [address], 04/19/2023 11:14:22 04/02/19 24 04/03/2023 GONZALO W/REF SALIMA GONZALO direct POSITI VE negati ve abnormal Not Available [facility] ([facility]) [address] [place], [address], 04/19/2023 11:14:23 04/02/19 24 04/03/2023 GONZALO W/REF SALIMA anti-DNA (ds) Ab qn 27 IU/mL 0-9 above high normal Negat pepe <5 Equiv ocal 5 - 9 Posit pepe >9 Not Available [facility] ([facility]) [address] [place], [address], 04/19/2023 11:14:23 04/02/19 24 04/03/2023 GONZALO W/REF SALIMA civil engineering teacher antibodies 0.8 ai 0.0-0. 9 Not Available [facility] ([facility]) [address] [place], [address], 04/19/2023 11:14:23 04/02/19 24 04/03/2023 GONZALO W/REF SALIMA carpio antibodies <0.2 ai 0.0-0. 9 Not Available [facility] ([facility]) [address] [place], [address], 04/19/2023 11:14:23 04/02/19 24 04/03/2023 GONZALO W/REF SALIMA antisclerode rma-70 antibodies 0.2 ai 0.0-0. 9 Not Available [facility] ([facility]) [address] [place], [address], 04/19/2023 11:14:23 04/02/19 24 04/03/2023 GONZALO W/REF SALIMA sjogren's anti-ss-A <0.2 ai 0.0-0. 9 Not Available [facility] ([facility]) [address] [place], [address], 04/19/2023 11:14:23 04/02/19 24 04/03/2023 GONZALO W/REF SALIMA sjogren's anti-ss-B <0.2 ai 0.0-0. 9 Not Available [facility] ([facility]) [address] [place], [address], 04/19/2023 11:14:23 04/02/19 24 04/03/2023 GONZALO W/REF SALIMA thyroid peroxidase (tpo) Ab 170 IU/mL 0-34 above high normal Not Available [facility] ([facility]) [address] [place], [address], 04/19/2023 11:14:23 04/02/19 24 04/03/2023 GONZALO W/REF SALIMA antichromati n antibodies 6.0 ai 0.0-0. 9 above high normal Not Available [facility] ([facility]) [address] [place], [address], 04/19/2023 11:14:23 04/02/19 24 04/03/2023 GONZALO W/REF SALIMA anti-centrom ere B antibodies <0.2 ai 0.0-0. 9 Not Available [facility] ([facility]) [address] [place], [address], 04/19/2023 11:14:23 04/02/19 24 04/05/2023 GONZALO W/REF SALIMA complement C3, serum 155 mg/dL 82-167 Not Available [facility] ([facility]) [address] [place], [address], 04/19/2023 11:14:23 04/02/19 24 04/05/2023 GONZALO W/REF SALIMA complement C4, serum 16 mg/dL 12-38 Not Available [facility] ([facility]) [address] [place], [address], 04/19/2023 11:14:23 04/02/19 24 04/05/2023 GONZALO W/REF SALIMA rheumatoid factor (rf) 12.2 IU/mL <14.0 Not Available [facility] ([facility]) [address] [place], [address], 04/19/2023 11:14:23 04/02/19 24 04/05/2023 GONZALO W/REF SALIMA anti-ccp Ab, IgG/IgA 14 units 0-19 Negat pepe <20 Weak posit pepe 20 - 39 Moder ate posit pepe 40 - 59 Stron g posit pepe >59 Not Available [facility] ([facility]) [address] [place], [address], 04/19/2023 11:14:23 04/02/19 24 04/05/2023 GONZALO W/REF SALIMA anticardioli pin Ab,IgG,qn 15 gpl_U /mL 0-14 above high normal Negat pepe: <15 Indet ermin ate: 15 - 20 Low-M ed Posit pepe: >20 - 80 High Posit pepe: >80 Not Available [facility] ([facility]) [address] [place], [address], 04/19/2023 11:14:23 04/02/19 24 04/05/2023 GONZALO W/REF SALIMA anticardioli pin Ab,IgM,qn 15 mpl_U /mL 0-12 above high normal Negat pepe: <13 Indet ermin ate: 13 - 20 Low-M ed Posit pepe: >20 - 80 High Posit pepe: >80 Not Available [facility] ([facility]) [address] [facility], [place], [address], 04/19/2023 11:14:23 04/02/19 24 04/05/2023 GONZALO W/REF SALIMA anticardioli pin Ab,IgA,qn <9 apl_U /mL 0-11 Negat pepe: <12 Indet ermin ate: 12 - 20 Low-M ed Posit pepe: >20 - 80 High Posit pepe: >80 Not Available [facility] ([facility]) [address] [place], [address], 04/19/2023 11:14:23 04/02/19 24 04/03/2023 IMMUN OGLOB ULIN G, QN, SERUM immunoglobul in g, qn, serum 3136 mg/dL 603-16 13 above high normal Not Available [facility] ([facility]) [address] [place], [address], 04/19/2023 11:14:25 04/02/19 24 04/03/2023 ALPHA -1-AN TITRY PSIN, SERUM dddir-6-acnm trypsin, serum 157 mg/dL 101-18 7 Not Available [facility] ([facility]) [address] [place], [address], 04/19/2023 11:14:26 04/02/19 24 04/03/2023 HEP A [...] Antib leandro w/ Rfx). Not Available [facility] ([facility]) [address] [facility], [place], [address], 04/19/2023 11:14:27 04/25/19 24 04/25/2023 BUN BUN 17 mg/dL 7-18 Not Available [facility]) [address] [facility], [place], [address], 04/25/2023 09:27:18 04/25/19 24 04/25/2023 CREAT ININE creatinine 1.0 mg/dL 0.6-1. 3 Not Available [facility] ([facility]) [address] [facility], [place], [address], 04/25/2023 09:27:20 04/25/19 24 04/25/2023 CREAT ININE glomerular filtration rate TNP mlper min 60- TEST NOT PERFO RMED GFR has only been valid ated from 18 to 70 years of age. Not Available [facility] ([facility]) [address] [facility], [place], [address], 04/25/2023 09:27:20 08/09/19 24 08/10/2023 COMP. METAB OLIC PANEL (14) glucose 86 mg/dL 70-99 Not Available [facility] ([facility]) [address] [facility], [place], [address], 08/10/2023 11:12:42 08/09/19 24 08/10/2023 COMP. METAB OLIC PANEL (14) BUN 16 mg/dL 8-27 Not Available [facility] ([facility]) [address] [place], [address], 08/10/2023 11:12:42 08/09/19 24 08/10/2023 COMP. METAB OLIC PANEL (14) creatinine 1.04 mg/dL 0.76-1 .27 Not Available [facility] ([facility]) [address] [place], [address], 08/10/2023 11:12:42 08/09/19 24 08/10/2023 COMP. METAB OLIC PANEL (14) eGFR 75 mL/mi n/1.7 3 >59 Not Available [facility] ([facility]) [address] [place], [address], 08/10/2023 11:12:42 08/09/19 24 08/10/2023 COMP. METAB OLIC PANEL (14) BUN/creatini ne ratio 15 10-24 Not Available [facility] ([facility]) [address] [facility], [place], [address], 08/10/2023 11:12:42 08/09/19 24 08/10/2023 COMP. METAB OLIC PANEL (14) sodium 137 mmol/ L 134-14 4 Not Available [facility] ([facility]) [address] [facility] [place], [address], 08/10/2023 11:12:42 08/09/19 24 08/10/2023 COMP. METAB OLIC PANEL (14) potassium 4.9 mmol/ L 3.5-5. 2 Not Available [facility] ([facility]) [address] [facility] [place], [address], 08/10/2023 11:12:42 08/09/19 24 08/10/2023 COMP. METAB OLIC PANEL (14) chloride 101 mmol/ L 96-106 Not Available [facility] ([place] [facility]) [address] [facility], [place], [address], 08/10/2023 11:12:42 08/09/19 24 08/10/2023 COMP. METAB OLIC PANEL (14) carbon dioxide, total 24 mmol/ L Not Available [facility] ([facility]) [address], [place], [address], 08/10/2023 11:12:42 08/09/19 24 08/10/2023 COMP. METAB OLIC PANEL (14) calcium 9.8 mg/dL 8.6-10 .2 Not Available [facility] ([facility]) [address] [place], [address], 08/10/2023 11:12:42 08/09/19 24 08/10/2023 COMP. METAB OLIC PANEL (14) protein, total 8.4 g/dL 6.0-8. 5 Not Available [facility] ([facility]) [address], [place], [address], 08/10/2023 11:12:42 08/09/19 24 08/10/2023 COMP. METAB OLIC PANEL (14) albumin 4.3 g/dL 3.8-4. 8 Not Available [facility] ([facility]) [address] [place], [address], 08/10/2023 11:12:42 08/09/19 24 08/10/2023 COMP. METAB OLIC PANEL (14) globulin, total 4.1 g/dL 1.5-4. 5 Not Available [facility] ([facility]) [address] [place], [address], 08/10/2023 11:12:42 08/09/19 24 08/10/2023 COMP. METAB OLIC PANEL (14) A/G ratio 1.0 1.2-2. 2 below low normal Not Available [facility] ([facility]) [address] [place], [address], 08/10/2023 11:12:42 08/09/19 24 08/10/2023 COMP. METAB OLIC PANEL (14) bilirubin, total 1.0 mg/dL 0.0-1. 2 Not Available [facility] ([facility]) [address] [place], [address], 08/10/2023 11:12:42 08/09/19 24 08/10/2023 COMP. METAB OLIC PANEL (14) alkaline phosphatase 85 IU/L 44-121 Not Available [facility] ([facility]) [address] [place], [address], 08/10/2023 11:12:42 08/09/19 24 08/10/2023 COMP. METAB OLIC PANEL (14) AST (SGOT) 74 IU/L 0-40 above high normal Not Available [facility] ([facility]) [address] [facility], [place], [address], 08/10/2023 11:12:42 08/09/19 24 08/10/2023 COMP. METAB OLIC PANEL (14) ALT (SGPT) 75 IU/L 0-44 above high normal Not Available [facility] ([facility]) [address] [place], [address], 08/10/2023 11:12:42 08/09/19 24 08/10/2023 CBC, PLATE LET, NO DIFFE RENTI AL WBC 4.6 x10e3 /uL 3.4-10 .8 Naif ified by repea t christopher sis Not Available [facility] ([facility]) [address] [place], [address], 08/10/2023 11:12:44 08/09/19 24 08/10/2023 CBC, PLATE LET, NO DIFFE RENTI AL RBC 4.66 x10e6 /uL 4.14-5 .80 Not Available [facility] ([facility]) [address] [place], [address], 08/10/2023 11:12:44 08/09/19 24 08/10/2023 CBC, PLATE LET, NO DIFFE RENTI AL hemoglobin 15.0 g/dL 13.0-1 7.7 Not Available [facility] ([facility]) [address] [facility], [place], [address], 08/10/2023 11:12:44 08/09/19 24 08/10/2023 CBC, PLATE LET, NO DIFFE RENTI AL hematocrit 43.6 % 37.5-5 1.0 Not Available [facility] ([facility]) [address] [facility], [place], [address], 08/10/2023 11:12:44 08/09/19 24 08/10/2023 CBC, PLATE LET, NO DIFFE RENTI AL MCV 94 fL 79-97 Not Available [facility] ([facility]) [address] [facility], [place], [address], 08/10/2023 11:12:44 08/09/19 24 08/10/2023 CBC, PLATE LET, NO DIFFE RENTI AL MCH 32.2 pg 26.6-3 3.0 Not Available [facility] ([facility]) [address] [facility], [place], [address], 08/10/2023 11:12:44 08/09/19 24 08/10/2023 CBC, PLATE LET, NO DIFFE RENTI AL MCHC 34.4 g/dL 31.5-3 5.7 Not Available [facility] ([facility]) [address] [facility], [place], [address], 08/10/2023 11:12:44 08/09/19 24 08/10/2023 CBC, PLATE LET, NO DIFFE RENTI AL RDW 14.0 % 11.6-1 5.4 Not Available [facility] ([facility]) [address] [place], [address], 08/10/2023 11:12:44 08/09/19 24 08/10/2023 CBC, PLATE LET, NO DIFFE RENTI AL platelets 138 x10e3 /uL 150-45 0 below low normal Not Available [facility] ([facility]) [address] [facility], [place], [address], 08/10/2023 11:12:44 08/09/19 24 08/10/2023 CBC, PLATE LET, NO DIFFE RENTI AL NRBC DIRECTOR MEDICAL AFFAIRS Not Available [facility] ([facility]) [address] [facility], [place], [address], 08/10/2023 11:12:44 04/10/19 24 04/10/2023 US, liver [facility] [address] [place] [address] Phone: Fax: Name: HERO PATINO Exam Date: 024 : [birth year] Age 72 Gender : M Access ion: [id number] Physic rudy: BRONWYN WHITT Facili ty: [facility] Facili ty HSV: Outpat ient Exam: [...] Admitt ing Provid er: WHITT BRONWYN [place] [email or web address] [facility] [address], [place], [address], 04/13/2023 17:41:14 04/25/19 24 04/25/2023 CT [facility] [address] [place] [address] Phone: Fax: Name: HERO PATINO Exam Date: : [birth year] Age 72 Gender : M Access ion: [id number] Physic rudy: BRONWYN WHITT [facility]ili ty: [facility] Facili ty HSV: Outpat ient [...] mass measur ing 4 cm in the music producer ior right kidney . There is also a 1.[address] nonenh ancing mass in the music producer ior left kidney . A 5 mm [...] Thank you for referr [facility]. Legall y authen ticate d by POPE CHANTAL Napier 0 04-25 11:35: 24 CC'ed Logic: Orderi ng Provid er: WHITT BRONWYN [place] Attend ing Provid er: WHITT BRONWYN [place] Admitt ing Provid er: WHITT BRONWYN [place] [email or web address] [facility] [address] [place] [address], [place], [address], 04/27/2023 14:25:16 08/15/19 24 08/15/2023 CT BX of liver -need le [facility] [address] [place] [address] Phone: Fax: Name: HERO PATINO Exam Date: 08/15/19 24 : [birth year] Age 72 years Gender : M Access ion: [id number] Physic rudy: BRONWYN WHITT [place] Facili ty: [facility] Facili ty HSV: Outpat ient Exam: [...] Admitt ing Provid er: WHITT BRONWYN [place] [email or web address] [facility] [address] [facility], [place], [address], 08/22/2023 12:59:58 08/15/19 24 08/15/2023 CT BX of liver -need [facility] [address] [facility] [address] [place] [address] Phone: Fax: Name: HERO PATINO Exam Date: 08/15/19 : [birth year] Age 72 years Gender : M Access ion: [id number] Physic rudy: BRONWYN WHITT [place] Facili ty: [facility] Facili ty HSV: Outpat ient [...] ints or compli cation s. IMPRES [place]: CT-lacoh ded liver biopsy as detail ed above [...] for referr ing PATINO , HERO to [facility]. Legall y authen ticate d by POPE CHANTAL Napier 2023-0 08-14 09:17: 20 CC'ed Logic: Orderi ng Provid er: WHITT BRONWYN [place] Attend ing Provid er: WHITT BRONWYN [place] Referr ing Provid er: WHITT BRONWYN [place] Admitt ing Provid er: WHITT BRONWYN [place] [facility] [address], [place], [address], 08/22/2023 12:59:58 Result Notes None recorded. Problems Name Problem SNOMED Code Status Onset Date Resolution Date Notes Provider Name and Address Organization Details Recorded Time Constipation 02316476 Active 2022 Barrera Rodney PA-C [address] [facility], [place], [address] , [facility] [place] 3 09:28:37 Problem Notes None recorded. Procedures Surgical History Date Name Laterality Status Provider Name and Address Organization Details Recorded Time 4 Procedure Note completed BRIAN WHITT MSN, TUBULAR RIVETER, STEEL POST INSTALLER-C [address] [facility], [place], [address], [facility] [place] 08/09/2023 09:21:29 4 Procedure Note completed BRIAN WHITT MSN, TUBULAR RIVETER, STEEL POST INSTALLER-C [address] [facility], [place], [address], [place] - [facility] [place] 05/14/2023 09:32:45 4 Procedure Note completed BRIAN WHITT MSN, TUBULAR RIVETER, STEEL POST INSTALLER-C [address] [facility], [place], [address], [facility] - [facility] [place] 04/02/2023 11:35:51 hernia repair completed Emma Ramirez [place] - [facility] [place] 09/13/2022 08:53:22 Imaging Results None recorded. Procedure [...] Address Organization Details Last Updated DateTime 03/15/2022 97360.48 g 137/84 mm[Hg] Jovanna Hood [place] - [facility] - [place] [facility] [place] 03/15/2022 09:18:03 Date Recorded Body height Body mass index (BMI) Body weight Body temperature Oxygen saturation Oxygen saturation in Arterial blood by Pulse oximetry Heart rate Heart rate Systolic And Diastolic Provider Name and Address Organization Details Last Updated DateTime 4 175.26 cm 27.1 kg/m2 06712.9 2 g 97.5 [degF] 99 % 99 % 63 /min 59 /min 164/87 mm[Hg] Naz JUAN [facility] [place] 4 09:42:18 Date Recorded Body height Body mass index (BMI) Body weight Body temperature Oxygen saturation Oxygen saturation in Arterial blood by Pulse oximetry Heart rate Heart rate Systolic And Diastolic Provider Name and Address Organization Details Last Updated DateTime 4 175.26 cm 26.7 kg/m2 65396.2 2 g 98.1 [degF] 98 % 98 % 64 /min 61 /min 127/71 mm[Hg] Emma JUAN [facility] [place] 4 09:31:10 Date Recorded Body height Body mass index (BMI) Body weight Body temperature Oxygen saturation Oxygen saturation in Arterial blood by Pulse oximetry Heart rate Heart rate Systolic And Diastolic Provider Name and Address Organization Details Last Updated DateTime 4 175.26 cm 25.9 kg/m2 47921.1 8 g 97.7 [degF] 99 % 99 % 52 /min 55 /min 133/70 mm[Hg] Naz JUAN [facility] [place] 4 08:58:27 Date Recorded Body weight Body mass index (BMI) Body height Body temperature Oxygen saturation Oxygen saturation in Arterial blood by Pulse oximetry Systolic And Diastolic Provider Name and Address Organization Details Last Updated DateTime 3 51569.6 5 g 25.3 kg/m2 175.26 cm 98.2 [degF] 97 % 97 % 134/81 mm[Hg] Emma JUAN [facility] [place] 3 08:57:20 Social History Question Answer Notes LastModified by Organizat ion Details LastModified Time Tobacco Smoking Status Never Smoker [facility] [place] 09/13/2022 08:53:57 What Is Your Level Of Caffeine Consumption? Moderate [email or web address] Information not available 09/13/2022 Sex: Unknown Functional Status Question Answer Note LastModified by Organizat ion Details LastModified Time Do you use any illicit or recreational drugs? No [email or web address] Information not available 09/13/2022 Do you or have you ever used any other forms of tobacco or nicotine? No [email or web address] Information not available 09/13/2022 What is your level of alcohol consumption? None [email or web address] Information not available 09/13/2022 Mental Status None [...] ICD10 Code Diagnosis IMO Codes Diagnosis Note [id number] Katelyn Gonzalez NP [facility] [place] [address] 03/15/2022 08:56:58 03/15/2022 10:28:25 History of polyp of colon 786580420 Z86.010 - colonoscop y scheduled History of heartburn 186 5747207 9109 Z87.19 - famotidine once daily or as needed- stay upright 30-60 minutes after eating- avoid trigger foods 020549 Barrera Rodney PA-C [facility] [place] 3435024-967 2 09/13/2022 08:37:06 09/13/2022 09:23:23 Constipation 00749794 K59.00 History of polyp of colon 488762516 Z86.010 History of heartburn 279 2824717 9109 Z87.19 038758 Hector Cabezas MD [facility] [place] [address] 2 04/02/2023 09:30:18 04/02/2023 11:06:32 Liver enzymes level above reference range 519131631 R74.01 Constipation 89712189 K5 9.00 History of polyp of colon 908267255 Z86.010 History of heartburn 092 7003659 9109 Z87.19 668030 Hector Cabezas MD [facility] [address] [address] 05/14/2023 09:25:52 05/14/2023 10:26:30 Liver enzymes level above reference range 940856672 R74.01 Constipation 95049540 K5 9.00 History of polyp of colon 727443945 Z86.010 History of heartburn 651 6275805 9109 Z87.19 Anti-nucle ar factor detected 666682989 R76.8 2742025 Hector Cabezas MD [facility] [address] [place] [address] 08/09/2023 08:35:27 08/09/2023 09:47:48 Liver enzymes level above reference range 287982518 R74.01 Constipation 25343041 K5 9.00 History of polyp of colon 097807998 Z86.010 History of heartburn 466 6748615 9109 Z87.19 Anti-nucle ar factor detected 421258410 R76.8 Health Concerns Section Related Observation LastModified by Organization Detai ls LastModified Time None Recorded Concern Status LastModified by Organization Details LastModified Time None Recorded Advance Directives Directive None Recorded Payers Insurance Date Sequence Insurance Name Policy Number Policy Vides Covered Member ID Vides Member ID Guarantor Name 06/09/2024 1 [employer] (MEDICARE REPLACEMENT/A DVANTAGE - PPO) Hero Patino [id number] Hero Patino Notes Date Note Type Note Provider Name and Address Organization Details Recorded Time 03/15/2022 text/html ROS as noted in the HPI Patient is a 71-year-old male here today for follow-up after colonoscopy done 01/31/[address] Viera in [place]. referral was for repeat evaluation by Dr [...] otherwise Katelyn Gonzalez NP [address] , [place], [address], [facility] [place] 03/15/2022 11:58:50 09/13/2022 text/html ROS as noted in the HPI PREVIOUS (03/15/22): Patient is a 71-year-old male here today for follow-up after colonoscopy done 01/31/[address] Viera in [place]. referral was for repeat evaluation by Dr [...] recommended. Barrera Rodney PA-C [address] , [place], [address], [facility] [place] 09/13/2022 16:00:36 04/02/2023 text/html ROS as noted in the HPI PREVIOUS (03/15/22 Tiffanie Gonzalez): Patient is a 71-year-old male here today for follow-up after colonoscopy done 01/31/[address] Viera in [place]. referral was for repeat evaluation by Dr [...] bowel movements per day. BRIAN WHITT MSN, TUBULAR RIVETER, STEEL POST INSTALLER-C [address], [place], [address], [place] - [facility] [place] [facility] [place] 04/02/2023 11:56:15 05/14/2023 text/html ROS as noted in the HPI PREVIOUS (03/15/22 Tiffanie Gonzalez): Patient is a 71-year-old male here today for follow-up after colonoscopy done 01/31/[address] Viera in [place]. referral was for repeat evaluation by Dr [...] hematemesis, hematochezia or melena. BRIAN WHITT MSN, TUBULAR RIVETER, STEEL POST INSTALLER-C [address] [facility] [facility], [place], [address], [facility] - NT - [place] [facility] [place] 05/14/2023 12:57:53 08/09/2023 text/html PREVIOUS (03/15/22 Tiffanie Gonzalez): Patient is a 71-year-old male here today for follow-up after colonoscopy done 01/31/[address] Viera in [place]. referral was for repeat evaluation by Dr [...] to the clinic today for follow-up. The [facility] never called him to schedule his [...] hematemesis, hematochezia or melena. BRIAN WHITT MSN, TUBULAR RIVETER, STEEL POST INSTALLER-C [address], [place], [address], [place] - [facility] [place] [facility] [place] 08/09/2023 10:07:11
--- OUTSIDE RECORDS SUMMARY | 2025-01-05 07:22 | XMS_ITS ---
Laboratory report Created on: December 06, 2024 HERO HOWARD : 1950 Sex: Male Author Organization Unknown PROBLEMS Problems List Code Description RESULTS Laboratory Orders Date Order Code Test 2024-11-25 [id number] ANTICARDIOLIPIN AB, IGM, QN 2024-11-25 [id number] BETA-2 GLYCOPROT EIN I AB, IGA 2024-11-25 [id number] BETA-2 GLYCOPROT EIN I AB, IGM 2024-11-25 [id number] LUPUS ANTICOAGUL ANT PANEL 2024-11-25 [id number] BETA-2 GLYCOPROT EIN I AB, IGG 2024-11-25 [id number] ANTICARDIOLIPIN AB, IGG, QN 2024-11-25 [id number] ANTICARDIOLIPIN AB, IGA, QN Laboratory Results Date LOINC Test Value Unit Reference Range Interpretation 2024-11-25 3182-3 ANTICARDIOLIPIN AB,IGM,QN 10 MPL U/ML 0-12 2024-11-25 11541-2 BETA-2 GLYCOPROT EIN I AB, IGA <9 GPI IGA UNITS 0-25 2024-11-25 64439-5 BETA-2 GLYCOPROT EIN I AB, IGM <9 GPI IGM UNITS 0-32 2024-11-25 5902-2 PROTHROMBIN TIME 11.8 SEC 2024-11-25 6301-6 INR 1.1 RATIO 2024-11-25 36221-0 APTT 23.9 SEC 2024-11-25 5946-9 APTT 1:1 CHIEF CONTRACT OFFICER NIY SEC 2024-11-25 95008-9 APTT 1:1 SALINE NIY SEC 2024-11-25 3243-3 THROMBIN TIME 21 SEC 2024-11-25 6303-2 DRVVT SCREEN SECONDS 43.8 SEC 2024-11-25 19978-8 DRVVT CONFIRM SECONDS NIY SEC 2024-11-25 43662-5 DRVVT RATIO NIY RATIO 2024-11-25 3282-1 HEXAGONAL PHOSPHOLIPID NEUTRAL 5 SEC 2024-11-25 82132-1 PLATELET NEUTRALIZATION 1.1 SEC 2024-11-25 3181-5 ANTICARDIOLIPIN AB, IGG <10 GPL 2024-11-25 3182-3 ANTICARDIOLIPIN AB, IGM 15 MPL 2024-11-25 23806-7 BETA-2 GLYCOPROT EIN I, IGG <10 SGU 2024-11-25 68423-4 BETA-2 GLYCOPROT EIN I, IGM <10 SMU 2024-11-25 92759-1 BETA-2 GLYCOPROT EIN I, IGA <10 BISI 2024-11-25 03783-8 BETA-2 GLYCOPROT EIN I AB, IGG <9 GPI IGG UNITS 0-20 2024-11-25 3181-5 ANTICARDIOLIPIN AB,IGG,QN <9 GPL U/ML 0-14 2024-11-25 5076-5 ANTICARDIOLIPIN AB,IGA,QN <9 APL U/ML 0-11
[2025-01-05 07:49] LABS: Hematocrit 43.8 % (42.0-52.0); Hemoglobin 14.9 g/dL (14.1-18.0); Immature Granulocytes % 0.5 %; Mean Corpuscular HGB Conc 34.0 g/dL (31.8-35.4); Mean Corpuscular Hemoglobin 32.7 pg (27.0-31.2); Mean Corpuscular Volume 96.3 fl (80-94); Nucleated Red Blood Cells % 0 %; Platelet Count 136 K/mm3 (142-424); Red Blood Count 4.55 M/mm3 (4.60-6.20); Red Cell Distribution Width-SD 49.7 fL; White Blood Count 6.5 K/mm3 (4.8-10.8)
[2025-01-05 08:06] LABS: INR 1.08 (0.9-1.1); Prothrombin Time 11.9 seconds (10.1-12.5)
[2025-01-05 08:24] LABS: Alanine Aminotransferase 38 U/L (12-78); Albumin Level 3.3 g/dl (3.5-5.0); Albumin/Globulin Ratio 1.1 (1.1-1.8); Alkaline Phosphatase 59 U/L (38-126); Anion Gap 7.1 mEq/L (5-15); Aspartate Amino Transferase 29 U/L (17-59); Bilirubin,Total 1.1 mg/dl (0.2-1.3); Blood Urea Nitrogen 24 mg/dl (9-20); Calcium 9.5 mg/dl (8.4-10.2); Carbon Dioxide 32 mmol/L (22.0-30.0); Chloride 102 mmol/L (98-107); Creatinine,Serum 0.90 mg/dl (0.66-1.25); Estimated Glomerular Filt Rate 82 ml/min (>60); GFR (African American) 99 ML/MIN (>60); Globulin 3.1 g/dL (1.3-3.2); Glucose 99 mg/dl (74-100); Potassium 4.1 mmoL/L (3.5-5.1); Sodium 137 mmol/L (136-145); Total Protein,Serum 6.4 g/dl (6.3-8.2)
[2025-01-06 08:14] LABS: Immunoglobulin A, Qn 127 mg/dL (61-437); Immunoglobulin G, Qn 1095 mg/dL (603-1613); Immunoglobulin M, Qn 198 mg/dL (15-143)
== END 2025-01-05 23:59 | disposition home or self-care (01) ==
LOC: LAB 07:20
PROVIDERS: PCP Internal Medicine; Visit Provider Internal Medicine Gastroenterology
DX: K75.4 Autoimmune hepatitis (principal); K74.60 Unspecified cirrhosis of liver
CPT/HCPCS: 36415; 80053; 82784; 82785; 85025; 85610

== ENCOUNTER 2025-01-27 09:10 | Outpatient (CLI) | payer MEDICARE, SELFPAY ==
[2025-01-27 15:59] LABS: Hematocrit 44.5 % (42.0-52.0); Hemoglobin 14.4 g/dL (14.1-18.0); Immature Granulocytes % 0.6 %; Mean Corpuscular HGB Conc 32.4 g/dL (31.8-35.4); Mean Corpuscular Hemoglobin 32.0 pg (27.0-31.2); Mean Corpuscular Volume 98.9 fl (80-94); Nucleated Red Blood Cells % 0 %; Platelet Count 122 K/mm3 (142-424); Red Blood Count 4.50 M/mm3 (4.60-6.20); Red Cell Distribution Width-SD 50.9 fL; White Blood Count 6.3 K/mm3 (4.8-10.8)
[2025-01-27 16:25] LABS: Albumin Level 4.2 g/dl (3.5-5.0); Chloride 103 mmol/L (98-107); Potassium 4.3 mmoL/L (3.5-5.1); Sodium 143 mmol/L (136-145)
[2025-01-27 16:28] LABS: Alanine Aminotransferase 57 U/L (12-78); Albumin/Globulin Ratio 1.4 (1.1-1.8); Alkaline Phosphatase 56 U/L (38-126); Anion Gap 15.3 mEq/L (5-15); Aspartate Amino Transferase 44 U/L (17-59); Bilirubin,Total 1.0 mg/dl (0.2-1.3); Blood Urea Nitrogen 19 mg/dl (9-20); Calcium 9.4 mg/dl (8.4-10.2); Carbon Dioxide 29 mmol/L (22.0-30.0); Creatinine,Serum 1.00 mg/dl (0.66-1.25); Estimated Glomerular Filt Rate 73 ml/min (>60); GFR (African American) 88 ML/MIN (>60); Globulin 2.9 g/dL (1.3-3.2); Glucose 76 mg/dl (74-100); Total Protein,Serum 7.1 g/dl (6.3-8.2)
[2025-01-27 16:54] LABS: Thyroid Stimulating Hormone 3.51 uIU/mL (0.465-4.68)
[2025-01-27 18:24] LABS: Free T4 (Free Thyroxine) 0.81 ng/dl (0.78-2.19)
--- OUTSIDE RECORDS SUMMARY | 2025-01-28 12:56 | XMS_ITS ---
Laboratory report Created on: January 10, 2025 HERO HOWARD : 1950 Sex: Male Author Organization Unknown PROBLEMS Problems List Code Description RESULTS Laboratory Orders Date Order Code Test 2025-01-05 [id number] IMMUNOGLOBULIN M , QN, SERUM 2025-01-05 [id number] IMMUNOGLOBULIN E , TOTAL 2025-01-05 [id number] IMMUNOGLOBULIN G , QN, SERUM 2025-01-05 [id number] IMMUNOGLOBULIN A , QN, SERUM Laboratory Results Date LOINC Test Value Unit Reference Range Interpre tation 2025-01-05 2472-9 IMMUNOGLOBULIN M , QN, SERUM 198 MG/DL 15-143 H 2025-01-05 57081-9 IMMUNOGLOBULIN E, TOTAL 3 IU/ML 6-495 L 2025-01-05 2465-3 IMMUNOGLOBULIN G , QN, SERUM 1095 MG/DL 603-1613 2025-01-05 2458-8 IMMUNOGLOBULIN A , QN, SERUM 127 MG/DL 61-437
--- OUTSIDE RECORDS SUMMARY | 2025-01-28 12:57 | XMS_ITS | Encounter Summary ---
Author Organization Healthcare Address [address] [place] [address] Care Team Providers Care Child And Adolescent Therapist Name Role Phone DanteAudi Primary Care Provider Encounter Details Date Type Department Care Team (Late st Contact Info) Description 12/02/2024 Orders Only [facility] [address], [address] [place] [phone] Provider, [place] [phone] Social History Tobacco Use Types Packs/Day Years [...] have called and left a message with [facility] medical records. I have asked them to fax over the CMP lab result. documented in this encounter Plan of Treatment Upcoming Encounters Date Type Department Care Team (Late st Contact Info) Description 02/09/2025 8:30 AM EST Appointment [facility] Ultrasound [address] [place] [address] 02/09/2025 10:00 AM EST Office Visit [facility] [address], [address] [place] [address] Jenny Alberto MD [address] [place] [address] 05/06/2025 9:00 AM EST Office Visit [facility] [address], [address] [place] [address] Myles Dyer MD [address] [place] [address] documented as of this encounter Procedures Procedure [...] as of this encounter Care Teams Child And Adolescent Therapist Relationship Specialty Start Date End Date Audi Howell DO [address] [place] [address] PCP - General 11/03/24 documented as of this encounter
--- OUTSIDE RECORDS SUMMARY | 2025-01-28 12:57 | XMS_ITS | Clinical Summary ---
Author Organization [facility] Address [address] [place] [address] Care Team Providers Care Bilingual Trainer Name Role Phone DanteAudi Primary Care Provider [phone] Allergies No known active allergies Medications amLODIPine [...] levothyroxine (Synthroid, Levoxyl) 50 MCG tablet Active levothyroxine (Synthroid, Levoxyl) 75 MCG tablet Active carvedilol (Coreg) 12.5 MG tablet Take 1 tablet by mouth 2 times a day with meals. 60 tablet 1 Active mycophenolate (Myfortic) 180 MG EC tabletIndicatio ns:Autoimmune hepatitis (CMS/HCC) TAKE 1 TABLET BY MOUTH TWICE DAILY 60 tablet 1 Active predniSONE (Deltasone) 5 MG tabletIndicatio ns:Autoimmune hepatitis (CMS/HCC) Take 3 tablets by mouth daily. Take by mouth as directed 90 tablet 5 01/22/20 Active Problems Problem Noted Date Diagnosed Date [...] Encounters Date Type Department Care Team Description 01/12/2025 Telephone [facility] Medicine Specialties [address] [place] [address] Chary Borrego RN 01/09/2025 Orders Only [facility] Medicine Specialties [address], [address] [place] [address] Jenny Alberto MD 01/07/2025 Orders Only [facility] Medicine Specialties [address], [address] [place] [address] Provider, Historical 01/06/2025 Orders Only [facility] Specialties [address] [place] [address] Provider, Historical 12/23/2024 Orders Only [facility]ties [address], [address] [place] [address] Provider, Historical 12/22/2024 Telephone [facility]ties [address], [address] [place] [address] Lori Levi RN 12/22/2024 Orders Only [facility] Specialties [address], [address] [place] [address] Jenny Alberto MD Autoimmune hepatitis (CMS/HCC) (Primary Dx) 12/22/2024 Orders Only [facility] Medicine Specialties [address], [address] [place] [address] Provider, Historical 12/18/2024 Orders Only [facility]ties [address], [address] [place] [address] Myles Dyer MD 12/16/2024 Refill [facility]ties [address], [address] [place] [address] Bjorn Cano MD Autoimmune hepatitis (CMS/HCC) (Primary Dx) 12/08/2024 Results Follow-Up [facility] Medicine Specialties [address], [address] [place] [address] Jenny Alberto MD 12/08/2024 Orders Only [facility] [address] [place] [address] Jenny Alberto MD Autoimmune hepatitis (CMS/HCC) (Primary Dx) 12/03/2024 Orders Only [facility] [address], [address] [place] [address] Jenny Alberto MD 12/02/[address] [facility] Specialties [address], [address] [place] [address] Chary Borrego RN 12/02/[address] [facility] Specialties [address], [address] [place] [address] Provider, Historical 11/20/2024 Orders Only [facility]ties [address], [address] [place] [address] Provider, Historical 11/17/[address] [facility] Specialties [address], [address] [place] [address] Provider, Historical 11/12/2024 Refill [facility] [address] [place] [address] Jenny Alberto MD 11/05/2024 9:00 AM EDT Office Visit [facility] Specialties [address], [address] [place] [address] Myles Dyer MD Autoimmune hepatitis (CMS/HCC) (Primary Dx); High risk medication use; Systemic lupus erythematosus (SLE) in adult (CMS/HCC); Anti-cardiolipin antibody positive; At risk for osteopenia 11/05/2024 Travel 11/05/[address] [facility] [address], [address] [place] [address] Lori Levi RN 11/03/2024 8:40 AM EDT Office Visit [facility] [address], [address] [place] [address] Jenny Alberto MD Autoimmune hepatitis (CMS/HCC) (Primary Dx); Other cirrhosis of liver (CMS/HCC); Elevated liver enzymes; Current use of steroid medication; Hypertension, unspecified type; Nausea 11/03/2024 Travel from Last 3 Months Immunizations Immunization [...] Info) Description 02/09/2025 8:30 AM EST Appointment [facility] Ultrasound [address], [address] [place] [address] 02/09/2025 10:00 AM EST [facility] [address], [address] [place] [address] Jenny Alberto MD [address] [place] [address] 05/06/2025 9:00 AM EST [facility] [address], [address] [place] [address] Myles Dyer MD [address] [place] [address] Health Maintenance Due Date Last Done Comments [facility]-Medicare Annual Wellness (AWV) 1950 [facility]-/Child/Adol SDOH Screenings 1950 [facility]- SDOH Screenings 1966 [facility]-Adult SDOH Screenings 1966 [facility]-Hepatitis A Vaccines (1 of 2 - Risk 2-dose series) 10/11/1967 [facility]-Pneumococcal Vaccine: 50+ Years (1 of 2 - PCV) 10/11/1967 [facility]-DTaP,Tdap,and Td Vaccines (1 - Tdap) 05/15/1996 05/14/1996 [facility]-Zoster Vaccines (1 of 2) 1998 [facility]-RSV Vaccine: 60+ Years or (1 - 1-dose 75+ series) 10/11/2023 [id number] Vaccine ( season) 2024 01/03/2024, 12/28/2022, 12/28/2021, Additional history [...] Diagnosis Comments CBC WITH AUTO DIFFERENTIAL Routine 01/07/2025 7:52 AM EDT COMPLETE METABOLIC PROFILE (CMP) Routine 01/06/2025 12:34 PM EDT PROTHROMBIN TIME(PT) / INR Routine 01/06/2025 12:34 PM EDT IG PROFILE Routine 01/05/2025 6:37 AM EDT IMMUNOGLOBULIN G SUBCLASS 4 (SO) Routine 12/23/2024 3:14 PM EDT COMPLETE METABOLIC PROFILE (CMP) Routine 12/22/2024 12:15 PM EDT CBC WITH AUTO DIFFERENTIAL Routine 12/22/2024 12:15 PM EDT URINE CULTURE Routine 12/18/2024 2:37 PM EDT [...] 11/03/2024 10:14 AM EDT Autoimmune hepatitis (CMS/HCC) HEPATITIS C ANTIBODY W/REFLEX TO HCV QUANT PCR Routine 01/21/2024 12:22 PM EST Unspecified cirrhosis of liver (CMS/HCC) from Last 3 Months or Most Recently Relevant to Health Maintenance Results * CBC and Differential (01/07/2025 7:52 AM EDT) Only the most recent of4 resultswithin the time period is included. Blood Venous blood specimen / Unknown Historical Provider LAB BLOOD ORDERABLES Final R esult * COMPLETE METABOLIC PROFILE (CMP) (01/06/2025 12:34 PM EDT) Only the most recent of4 resultswithin the time period is included. Historical Provider LAB BLOOD ORDERABLES Final R esult * Prothrombin Time/INR (01/06/2025 12:34 PM EDT) Only the most recent of2 resultswithin the time period is included. Blood Venous blood specimen / Unknown Result [facility] Historical Provider LAB BLOOD ORDERABLES Final R esult * IG Profile (01/05/2025 6:37 AM EDT) Blood Venous blood specimen / Unknown Result [facility] Jenny Alberto MD LAB BLOOD ORDERABLES Final Result * Immunoglobulin G Subclass 4 (SO) (12/23/2024 3:14 PM EDT) Only the most recent of2 resultswithin the time period is included. Blood Venous blood specimen / Unknown Result [facility] LAB REF LAB BLOOD AND FLUID ORD Final Result * Urine Culture (12/18/2024 2:37 PM EDT) Urine Urine specimen obtained by clean catch procedure / Unknown Result [facility] Myles Dyer MD LAB MICROBIOLOGY - GENERAL ORD ERABLES Final Result * Cardiolipin antibody, IgA (12/18/2024 2:36 PM EDT) Blood Venous blood specimen / Unknown Result [facility] Myles Dyer MD LAB BLOOD ORDERABLES Final Res ult * Beta-2 Glycoprotein Antibodies (12/18/2024 2:36 PM EDT) Blood Venous blood specimen / Unknown Result [facility] Myles Dyer MD LAB BLOOD ORDERABLES Final Res ult * Lupus Anticoagulant Profile (12/18/2024 2:36 PM EDT) Blood Venous blood specimen / Unknown Result [facility] Myles Dyer MD LAB BLOOD ORDERABLES Final Res ult * DRVVT (12/18/2024 2:36 PM EDT) Blood Venous blood specimen / Unknown Result [facility] Myles Dyer MD LAB BLOOD ORDERABLES Final Res ult * RPR Titer (12/18/2024 2:35 PM EDT) Blood Venous blood specimen / Unknown Result [facility] Myles Dyer MD LAB BLOOD ORDERABLES Final Res ult * IgG, Plasma (11/17/2024 7:56 AM EDT) Only the most recent of2 resultswithin the time period is included. Blood Venous blood specimen / Unknown Result [facility] Provider LAB BLOOD ORDERABLES Final R esult * Urinalysis Microscopic Examination (11/05/2024 10:04 AM EDT) Urine Urine specimen obtained by clean catch procedure / Unknown Non-blood Collection / Unknown 11/05/2024 10:04 AM EDT 11/05/2024 10:[address] [facility] Myles Dyer MD LAB URINE ORDERABLES Final Res ult [facility] [address] [place] [address] * Protein, Random, Urine with Creatinine (11/05/2024 10:04 AM EDT) Protein, Urine <6 mg/dL 11/05/2024 11:41 AM EDT [facility] Creatinine, Urine 25 mg/dL 11/05/2024 11:41 AM EDT [facility] Protein/Creatin ine Ratio 11/05/2024 11:41 AM EDT [facility] Urine Urine specimen obtained by clean catch procedure / Unknown Non-blood Collection / Unknown 11/05/2024 10:04 AM EDT 11/05/2024 10:04 AM EDT us Myles Dyer MD LAB URINE ORDERABLES Final Res ult [facility] [address] [place] [address] * (ABNORMAL) Urinalysis with reflex microscopic (Culture NOT Included) (11/05/2024 10:04 AM EDT) Color, Urine Yellow LAB URINALYSIS - AUTOMATED METHOD 11/05/2024 11:12 AM EDT [facility] Clarity, Urine Clear LAB URINALYSIS - AUTOMATED METHOD 11/05/2024 11:12 AM EDT [facility] Spec [place], Urine 1.009 1.005 - 1.030 LAB URINALYSIS - AUTOMATED METHOD 11/05/2024 11:12 AM EDT [facility] pH, Urine 7.5 5.0 - 8.0 LAB URINALYSIS - AUTOMATED METHOD 11/05/2024 11:12 AM EDT [facility] Protein, Urine Negative Negative mg/dL LAB URINALYSIS - AUTOMATED METHOD 11/05/2024 11:12 AM EDT [facility] Glucose, Urine Negative Negative mg/dL LAB URINALYSIS - AUTOMATED METHOD 11/05/2024 11:12 AM EDT [facility] Ketones, Urine Negative Negative mg/dL LAB URINALYSIS - AUTOMATED METHOD 11/05/2024 11:12 AM EDT [facility] Blood, Urine Negative Negative LAB URINALYSIS - AUTOMATED METHOD 11/05/2024 11:12 AM EDT [facility] Bilirubin, Urine Negative Negative LAB URINALYSIS - AUTOMATED METHOD 11/05/2024 11:12 AM EDT [facility] Urobilinogen, Urine 0.2 0.2 to 1.0 mg/dL LAB URINALYSIS - AUTOMATED METHOD 11/05/2024 11:12 AM EDT [facility] Leukocytes, Urine Small(A) Negative LAB URINALYSIS - AUTOMATED METHOD 11/05/2024 11:12 AM EDT [facility] Nitrite, Urine Negative Negative LAB URINALYSIS - AUTOMATED METHOD 11/05/2024 11:12 AM EDT [facility] RBC, Urine <1 0 to 3 /HPF LAB URINALYSIS - AUTOMATED METHOD 11/05/2024 11:12 AM EDT [facility] WBC, Urine 6 - 10(A) 0 to 5 /HPF LAB URINALYSIS - AUTOMATED METHOD 11/05/2024 11:12 AM EDT [facility] Squamous Epithelial Cells 0 - 2 0 to 5 /HPF LAB URINALYSIS - AUTOMATED METHOD 11/05/2024 11:12 AM EDT [facility] Hyaline Casts 0 - 2 0 to 5 /LPF LAB URINALYSIS - AUTOMATED METHOD 11/05/2024 11:12 AM EDT [facility] Bacteria, Urine Negative Negative LAB URINALYSIS - AUTOMATED METHOD 11/05/2024 11:12 AM EDT [facility] Urine Urine specimen obtained by clean catch procedure / Unknown Non-blood Collection / Unknown 11/05/2024 10:04 AM EDT 11/05/2024 10:04 AM EDT us Myles Dyer MD LAB URINE ORDERABLES Final Res ult [facility] [address] [place] [address] * Alpha Fetoprotein, Serum (11/03/2024 10:14 AM EDT) Alpha Fetoprotein, Serum <2.3 <10.0 ng/mL 11/03/2024 12:59 PM EDT [facility] Blood Venous blood specimen / Unknown Venipuncture / Unknown 11/03/2024 10:14 AM EDT 11/03/2024 10:14 AM EDT Narrative [facility] - 11/03/2024 12:59 PM EDT Performed by [employer] electrochemiluminescent immunoassay which is traceable to the 1st [facility] IRP WHO Reference standard 72/255. Results obtained with different test methods or kits cannot be used interchangeably. us Bjorn Cano MD LAB BLOOD ORDERABLES Final Resul t [facility] [address] [place] [address] * (ABNORMAL) Comprehensive metabolic panel (11/03/2024 10:14 AM EDT) Glucose, Plasma 127(H) 74 - 99 mg/dL 11/03/2024 11:31 AM EDT [facility] BUN, Plasma 21 8 - 23 mg/dL 11/03/2024 11:31 AM EDT [facility] Creatinine, Plasma 0.92 0.70 - 1.20 mg/dL 11/03/2024 11:31 AM EDT [facility] BUN/Creatinine Ratio 23 11/03/2024 11:31 AM EDT [facility] Sodium, Plasma 141 136 - 145 mmol/L 11/03/2024 11:31 AM EDT [facility] Potassium, Plasma 4.5 3.6 - 4.9 mmol/L 11/03/2024 11:31 AM EDT [facility] Chloride, Plasma 104 97 - 107 mmol/L 11/03/2024 11:31 AM EDT [facility] CO2, Plasma 25 22 - 29 mmol/L 11/03/2024 11:31 AM EDT [facility] Anion Gap 12 6 - 16 mmol/L 11/03/2024 11:31 AM EDT [facility] Total Calcium, Plasma 9.6 8.9 - 10.2 mg/dL 11/03/2024 11:31 AM EDT [facility] Total Protein 7.2 6.3 - 7.9 g/dL 11/03/2024 11:31 AM EDT [facility] Albumin, Plasma 4.4 3.5 - 5.2 g/dL 11/03/2024 11:31 AM EDT [facility] AST, Plasma 93(H) 10 - 50 U/L 11/03/2024 11:31 AM EDT [facility] ALT, Plasma 121(H) 10 - 50 U/L 11/03/2024 11:31 AM EDT [facility] Alkaline Phosphatase, Plasma 76 40 - 115 U/L 11/03/2024 11:31 AM EDT [facility] Total Bilirubin, Plasma 0.6 0.2 - 1.1 mg/dL 11/03/2024 11:31 AM EDT [facility] eGFRcr 86.2 mL/min/1.7 3m*2 11/03/2024 11:31 AM EDT [facility] Comment:Reported eGFRcr in m L/min/1.73m2 is based the CKD-EPI 2020 equation that does not use a race coefficient. Blood Venous blood specimen / Unknown Venipuncture / Unknown 11/03/2024 10:14 AM EDT 11/03/2024 10:14 AM EDT us Bjorn Cano MD LAB BLOOD ORDERABLES Final Resul t [facility] [address] [place] [address] * Hepatitis C antibody (01/21/2024 12:22 PM EST) Hepatitis C Antibody Negative Negative 01/21/2024 3:15 PM EST [facility] Blood Venous blood specimen / Unknown Venipuncture / Unknown 01/21/2024 12:22 PM EST 01/21/2024 12:23 PM EST us Jenny Alberto MD LAB BLOOD ORDERABLES Final Result [facility] [address] [place] [address] from Last 3 Months or Most Recently Relevant to Health Maintenance Insurance Care Teams Bilingual Trainer Relationship Specialty Start Date End Date Audi Howell DO [address] [place] [address] PCP - General 11/03/24
--- OUTSIDE RECORDS SUMMARY | 2025-01-28 12:57 | XMS_ITS | Encounter Summary ---
Author Organization Healthcare Address [address] [place] [address] Care Team Providers Care Certified Medical Records Coder Name Role Phone Audi Howell Primary Care Provider [phone] Encounter Details Date Type Department Care Team (Late st Contact Info) Description 12/23/2024 Orders Only [facility] Medicine Specialties [address] [place] [address] Provider, [address] [address] Social History Tobacco Use Types [...] Appointment [facility] Ultrasound [address], [address] [place] [address] 02/09/2025 10:00 AM EST Office Visit [facility] [address], [address] [place] [address] Jenny Alberto MD [address] [facility] [address] [place] [address] 05/06/2025 9:00 AM EST Office Visit [facility] Specialties [address] [place] [address] Myles Dyer MD [address] [facility] [address] [place] [address] documented as of this encounter Procedures Procedure Name Priority Date/Time Associated Diagnosis Comments IMMUNOGLOBULIN G SUBCLASS 4 (SO) Routine 12/23/2024 3:14 PM EDT documented in this encounter Results * Immunoglobulin G Subclass 4 (SO) (12/23/2024 3:14 PM EDT) Blood Venous blood specimen / Unknown us Historical Provider LAB REF LAB BLOOD AND FLUID ORD Final Result documented in this encounter Visit [...] documented as of this encounter Care Teams Certified Medical Records Coder Relationship Specialty Start Date End Date Audi Howell DO [address] [place] [address] PCP - General 11/03/24 documented as of this encounter
--- OUTSIDE RECORDS SUMMARY | 2025-01-28 12:57 | XMS_ITS | Encounter Summary ---
Author Organization Healthcare Address [address] [place] [address] Care Team Providers Care Devops Developer Name Role Phone Audi Howell DO Primary Care Provider [phone] Encounter Details Date Type Department Care Team (Late Contact Info) Description 12/03/2024 Orders Only [facility] Medicine Specialties [address] [place] [address] Jenny Alberto MD [address] [place] [address] Social History Tobacco Use Types [...] Info) Description 02/09/2025 8:30 AM EST Appointment [facility] Ultrasound [address] [place] [address] 02/09/2025 10:00 AM EST Office Visit [facility] Medicine Specialties [address] [place] [address] Jenny Alberto MD [address] [place] [address] 05/06/2025 9:00 AM EST Office Visit [facility] Medicine Specialties [address] [place] [address] Myles Dyer MD [address] [place] [address] documented as of this encounter [...] documented as of this encounter Care Teams Devops Developer Relationship Specialty Start Date End Date Audi Howell DO [address] [place] [address] PCP - General 11/03/24 documented as of this encounter
--- OUTSIDE RECORDS SUMMARY | 2025-01-28 12:57 | XMS_ITS | Encounter Summary ---
Author Organization Healthcare Address [address] [place] [address] Care Team Providers Care Pediatric Licensed Practical Nurse Name Role Phone Audi Howell Primary Care Provider [phone] Encounter Details Date Type Department Care Team (Late Contact Info) Description 12/02/2024 Telephone [facility] Medicine Specialties [address] [place] [address] Chary Borrego RN CH-VASCULAR & [...] AM EST Appointment [facility] Ultrasound [address] [place] [address] 02/09/2025 10:00 AM EST Office Visit [facility] Medicine Specialties [address] [place] [address] Jenny Alberto MD [address] [place] [address] 05/06/2025 9:00 AM EST Office Visit [facility] Medicine Specialties [address] [place] [address] Myles Dyer MD [address] [facility] [address] [place] [address] documented as of this encounter [...] documented as of this encounter Care Teams Pediatric Licensed Practical Nurse Relationship Specialty Start Date End Date Audi Howell DO [address] [place] [address] PCP - General 11/03/24 documented as of this encounter
--- OUTSIDE RECORDS SUMMARY | 2025-01-28 12:57 | XMS_ITS | Encounter Summary ---
Author Organization Healthcare Address [address] [place] [address] Care Team Providers Care Lab Analyst Name Role Phone Audi Howell Primary Care Provider [phone] Encounter Details Date Type Department Care Team (Late st Contact Info) Description 12/22/2024 Orders Only [facility] Medicine Specialties [address] [place] [address] Provider, [address] [address] Social History Tobacco Use Types [...] 02/09/2025 8:30 AM EST Appointment [facility] Ultrasound [address] [place] [address] 02/09/2025 10:00 AM EST Office Visit [facility] Medicine Specialties [address], [address] [place] [address] Jenny Alberto MD [address] [place] [address] 05/06/2025 9:00 AM EST Office Visit [facility] Specialties [address] [place] [address] Myles Dyer MD [address] [facility] [address] [place] [address] documented as of this encounter Procedures Procedure Name Priority Date/Time Associated Diagnosis Comments COMPLETE METABOLIC PROFILE (CMP) Routine 12/22/2024 12:15 PM EDT CBC WITH AUTO DIFFERENTIAL Routine 12/22/2024 12:15 PM EDT documented in this encounter Results * COMPLETE METABOLIC PROFILE (CMP) (12/22/2024 12:15 PM EDT) Historical Provider LAB BLOOD ORDERABLES Final R esult * CBC and Differential (12/22/2024 12:15 PM EDT) Blood Venous blood specimen / [...] documented as of this encounter Care Teams Lab Analyst Relationship Specialty Start Date End Date Audi Howell, [address] [place] [address] PCP - General 11/03/24 documented as of this encounter
--- OUTSIDE RECORDS SUMMARY | 2025-01-28 12:57 | XMS_ITS | Encounter Summary ---
Author Organization Healthcare Address [address] [place] [address] Care Team Providers Care Producer Name Role Phone Field, Vita PAINTING Primary Care Provider [phone] Luis Lawson MD Primary Care Provider [phone] Audi Howell DO Primary Care Provider [phone] Encounter Details Date Type Department Care Team (Late st Contact Info) Description 01/23/2024 Lab Requisition [facility] [address] [place] [address] Jenny Alberto MD [address] [place] [address] Elevation of levels of liver [...] EST Appointment [facility] Ultrasound [address], [address] [place] [address] 02/09/2025 10:00 AM EST Office Visit [facility] Medicine Specialties [address], 2nd [place] [address] Jenny Alberto MD [address] [facility] [address] [place] [address] 05/06/2025 9:00 AM EST Office Visit [facility]ties [address], 2nd [place] [address] Myles Dyer MD [address] [place] [address] documented as of this encounter Procedures Procedure Name Priority Date/Time Associated Diagnosis Comments SURGICAL PATHOLOGY CONSULT Routine 01/23/2024 1:42 PM EST Elevation of levels of liver transaminase levels documented in this encounter Results * Surgical Pathology Consult (01/23/2024 1:42 PM EST) Case Report Sugical Pathology Consult Case: [id number] Authorizing Provider: Jenny Alberto MD Collected: 01/23/2024 1342 Ordering Location: [facility] Lab Received: 01/23/2024 1342 Pathologist: Nasra Nava MD Specimen: Liver, [id number] 01/24/2024 4:41 PM EST [facility] Final Diagnosis LIVER, NEEDLE CORE BIOPSY ([id number]; 08/15/2023): - CLINICOPATHOLOGIC FINDINGS CONSISTENT WITH AUTOIMMUNE HEPATITIS WITH STAGE 4 FIBROSIS (SEE COMMENT). 01/24/2024 4:41 PM EST [facility] at 1641 EST Comment Sections [...] correlation is recommended. 01/24/2024 4:41 PM EST [facility] Clinical Information R74.01 - Elevation of levels of liver transaminase levels [ICD-10-CM] 01/24/2024 4:41 PM EST [facility] Gross Description A. [id number] Received along with a corresponding pathology report from [facility] are 3 slides labeled outside case: [id number] collected on 08/15/2023. 01/24/2024 4:41 PM EST [facility] Note: A resident was involved in the service. I attest I examined the relevant preparations for the specimens and confirmed the diagnosis or interpretation. 01/24/2024 4:41 PM EST [facility] Tissue Liver structure / Unknown 01/23/2024 1:42 PM EST 01/23/2024 1:42 PM EST us Jenny Alberto MD LAB PATHOLOGY ORDERABLES F inal Result [facility] [address] [place] [address] documented in this encounter Visit Diagnoses Diagnosis [...] documented as of this encounter Care Teams Producer Relationship Specialty Start Date End Date Vita Reid APRN [address] [place] [address] PCP - General 07/23/20 02/24/24 Luis Lawson MD [address] [place] [address] [place] [address] PCP - General 02/25/24 11/02/24 Audi Howell DO [address] [place] [address] [address] [place] [address] PCP - General 11/03/24 documented as of this encounter
--- OUTSIDE RECORDS SUMMARY | 2025-01-28 12:57 | XMS_ITS | Encounter Summary ---
Author Organization Healthcare Address [address] [place] [address] Care Team Providers Care Customer Marketing Manager Name Role Phone Audi Howell DO Primary Care Provider [phone] Encounter Details Date Type Department Care Team ([facility] Contact Info) Description 12/22/[address] [facility] Medicine Specialties [address] 2[address] [place] [address] Jenny Alberto MD [address] [place] [address] Autoimmune hepatitis (CMS/HCC) (Primary Dx) [...] Description 02/09/2025 8:30 AM EST Appointment [facility] Ultrasound [address], [address] [place] [address] 02/09/2025 10:00 AM EST Office Visit [facility]ties [address], [address] [place] [address] Jenny Alberto MD [address] [place] [address] 05/06/2025 9:00 AM EST Office [facility] Medicine Specialties [address] [place] [address] Myles Dyer MD [address] [place] [address] documented as of this encounter [...] as of this encounter Care Teams Customer Marketing Manager Relationship Specialty Start Date End Date Audi Howell DO [address] [facility] [address] [place] [address] PCP - General 11/03/24 documented as of this encounter
--- OUTSIDE RECORDS SUMMARY | 2025-01-28 12:57 | XMS_ITS | Encounter Summary ---
Author Organization Healthcare Address [address] [place] [address] Care Team Providers Care Annealing Operator Name Role Phone Audi Howell DO Primary Care Provider [phone] Reason for Referral * Medications - Closed Specialty Diagnoses / Procedures Referred By Contac t Referred To Contact Diagnoses Autoimmune hepatitis (CMS/HCC) Jenny Alberto MD [address] [address] Phone: tel: fax: Referral ID Status Reason Start Date Expiration Date Visits Re quested Visits Authorized [id number] Closed 1 1 Reason for Visit * Reason Comments Med Refill Encounter Details Date Type Department Care Team (Late st Contact Info) Description 12/16/2024 Refill [facility] Medicine Specialties [address], [address] [place] [address] Bjorn Cano MD [id number] [place] [address] Autoimmune hepatitis (CMS/HCC) (Primary Dx) [...] Appointment [facility] Ultrasound [address], [address]nd [place] [address] 02/09/2025 10:00 AM EST Office Visit [facility] Medicine Specialties [address], [address]nd [place] [address] Jenny Alberto MD [address] [facility] [address] [place] [address] 05/06/2025 9:00 AM EST Office Visit [facility] Medicine Specialties [address], [address]nd [place] [address] Myles Dyer MD [address] [place] [address] documented as of this encounter Visit Diagnoses [...] documented as of this encounter Care Teams Annealing Operator Relationship Specialty Start Date End Date Audi Howell DO [address] [place] [address] [place] [address] PCP - General 11/03/24 documented as of this encounter
--- OUTSIDE RECORDS SUMMARY | 2025-01-28 12:57 | XMS_ITS | Encounter Summary ---
Author Organization Healthcare Address [address] [place] [address] Care Team Providers Care Sourcing Engineer Name Role Phone Audi Howell Primary Care Provider [phone] Encounter Details Date Type Department Care Team (Late st Contact Info) Description 12/22/2024 Telephone [facility]ties [address], [address] [place] [address] Lori Levi RN [facility] Social History Tobacco [...] encounter Miscellaneous Notes * Telephone Encounter - Chary Borrego RN - 01/05/2025 9:19 AM EDT Lab orders have been faxed to [facility] F [phone]. * Telephone Encounter - Chary Borrego RN - 12/23/2024 12:13 PM EDT I spoke with the patient and relayed providers message. Patient understood and will get labs done at [facility] in 2 weeks. * Telephone Encounter - Lori Levi RN - 12/22/2024 4:14 PM EDT Images from the original note were not included. Attempted to reach patient, no answer, no VM Please give him Dr. Alberto's message Received: Today Jenny Alberto MD Bishop, Angela M, RN; [facility] Gastroenterology Liver Nursing Staff Pls call patient and tell him that his liver enzymes are stable and pls advise him to decrease prednisone from 20mg/day to 15mg/day and repeat labs in 2 weeks. I sent new Rx for prednisone 15mg/day documented in this encounter Plan of Treatment Upcoming Encounters Date Type Department Care Team (Late st Contact Info) Description 02/09/2025 8:30 AM EST Appointment [facility] Ultrasound [address], [address]nd [place] [address] 02/09/2025 10:00 AM EST Office Visit [facility] Medicine Specialties [address], [address]nd [place] [address] Jenny Alberto MD [address] [place] [address] 05/06/2025 9:00 AM EST Office Visit [facility] Medicine Specialties [address], [address] [place] [address] Myles Dyer MD [address] [place] [address] documented as of this encounter Visit Diagnoses [...] documented as of this encounter Care Teams Sourcing Engineer Relationship Specialty Start Date End Date Audi Howell DO [address] [place] [address] PCP - General 11/03/24 documented as of this encounter
--- OUTSIDE RECORDS SUMMARY | 2025-01-28 12:57 | XMS_ITS | Encounter Summary ---
Author Organization Healthcare Address [address] [place] [address] Care Team Providers Care Loss Prevention/Safety District Manager Name Role Phone Audi Howell Primary Care Provider [phone] Encounter Details Date Type Department Care Team (Late st Contact Info) Description 01/12/2025 Telephone [facility] Medicine Specialties [address], [address] [place] [address] Chary Borrego, RN CH-VASCULAR & INTERVENTIONAL RADIOLOGY Social History [...] Telephone Encounter - Chary Borrego RN - 01/12/2025 10:16 AM EST I spoke with the patient and relayed provider message. Patient will get labs done right before his next appointment. documented in this encounter Plan of Treatment Upcoming Encounters Date Type Department Care Team (Late st Contact Info) Description 02/09/2025 8:30 AM EST Appointment [facility] Ultrasound [address], [address]nd [place] [address] 02/09/2025 10:00 AM EST Office Visit [facility] Medicine Specialties [address], [address] [place] [address] Jenny Alberto MD [address] [place] [address] 05/06/2025 9:00 AM EST Office Visit [facility] Medicine Specialties [address], [address] [place] [address] Myles Dyer MD [address] [place] [address] documented as of this encounter Visit Diagnoses [...] documented as of this encounter Care Teams Loss Prevention/Safety District Manager Relationship Specialty Start Date End Date Audi Howell DO [address] [place] [address] PCP - General 11/03/24 documented as of this encounter
--- OUTSIDE RECORDS SUMMARY | 2025-01-28 12:57 | XMS_ITS | Encounter Summary ---
Author Organization Healthcare Address [address] [place] [address] Care Team Providers Care Kettle Girl Name Role Phone DanteAudi Serafin DO Primary Care Provider [phone] Encounter Details Date Type Department Care Team (Late st Contact Info) Description 12/08/2024 Orders Only [facility] [address] [facility] [address] [place] [address] Jenny Alberto MD [address] [facility] [address] [place] [address] Autoimmune hepatitis (CMS/HCC) (Primary Dx) [...] 02/09/2025 8:30 AM EST Appointment [facility] Ultrasound [address], [address]nd [place] [address] 02/09/2025 10:00 AM EST Office Visit [facility] Medicine Specialties [address], [address] [place] [address] Jenny Alberto MD [address] [place] [address] 05/06/2025 9:00 AM EST Office Visit [facility] Medicine Specialties [address], [address] [place] [address] Myles Dyer MD [address] [place] [address] documented as of this encounter [...] documented as of this encounter Care Teams Kettle Girl Relationship Specialty Start Date End Date Audi Howell DO [address] [facility] [address] [place] [address] (work) PCP - General 11/03/24 documented as of this encounter
--- OUTSIDE RECORDS SUMMARY | 2025-01-28 12:57 | XMS_ITS | Encounter Summary ---
Author Organization Healthcare Address [address] [place] [address] Care Team Providers Care Fashion Merchandiser Name Role Phone Audi Howell Primary Care Provider [phone] Encounter Details Date Type Department Care Team (Late st Contact Info) Description 01/06/2025 Orders Only [facility] Medicine Specialties [address], [address] [place] [address] Provider, [address] [address] Social History Tobacco Use Types [...] Info) Description 02/09/2025 8:30 AM EST Appointment [facility] Ultrasound [address], [address]nd [place] [address] 02/09/2025 10:00 AM EST Office Visit [facility] Medicine Specialties [address], [address]nd [place] [address] Jenny Alberto MD [address] [place] [address] 05/06/2025 9:00 AM EST Office Visit [facility] Medicine Specialties [address], [address]nd [place] [address] Myles Dyer MD [address] [facility] [address] [place] [address] documented as of this encounter Procedures Procedure Name Priority Date/Time Associated Diagnosis Comments COMPLETE METABOLIC PROFILE (CMP) Routine 01/06/2025 12:34 PM EDT PROTHROMBIN TIME(PT) / INR Routine 01/06/2025 12:34 PM EDT documented in this encounter Results * COMPLETE METABOLIC PROFILE (CMP) (01/06/2025 12:34 PM EDT) Historical Provider LAB BLOOD ORDERABLES Final R esult * Prothrombin Time/INR (01/06/2025 12:34 PM EDT) Blood Venous blood specimen / [...] documented as of this encounter Care Teams Fashion Merchandiser Relationship Specialty Start Date End Date Audi Howell, DO [address] [place], [place] [address] PCP - General 11/03/24 documented as of this encounter
--- OUTSIDE RECORDS SUMMARY | 2025-01-28 12:57 | XMS_ITS | Encounter Summary ---
Author Organization Healthcare Address [address] [place] [address] Care Team Providers Care Centrifuge Separator Operator Name Role Phone Audi Howell Serafin DO Primary Care Provider [phone] Encounter Details Date Type Department Care Team (Late Contact Info) Description 01/09/2025 Orders Only [facility] Medicine Specialties [address], [address] [place] [address] Jenny Alberto MD [address] [place] [address] Social History Tobacco Use Types [...] Info) Description 02/09/2025 8:30 AM EST Appointment [facility] Ultrasound [address], [address]nd [place] [address] 02/09/2025 10:00 AM EST Office Visit [facility] Medicine Specialties [address], [address] [place] [address] Jenny Alberto MD [address] [place] [address] 05/06/2025 9:00 AM EST Office Visit [facility] Medicine Specialties [address], [address] [place] [address] Myles Dyer MD [address] [place] [address] documented as of this encounter Procedures Procedure Name Priority Date/Time Associated Diagnosis Comments IG PROFILE Routine 01/05/2025 6:37 AM EDT documented in this encounter Results * IG Profile (01/05/2025 6:37 AM EDT) [...] documented as of this encounter Care Teams Centrifuge Separator Operator Relationship Specialty Start Date End Date Audi Howell DO [address] [place] [address] PCP - General 11/03/24 documented as of this encounter
--- OUTSIDE RECORDS SUMMARY | 2025-01-28 12:57 | XMS_ITS | Encounter Summary ---
Author Organization Healthcare Address [address] [place] [address] Care Team Providers Care Germination Testing Manager Name Role Phone Audi Howell Serafin DO Primary Care Provider [phone] Encounter Details Date Type Department Care Team (Late Contact Info) Description 12/08/2024 Results Follow-Up [facility] Medicine Specialties [address], [address] [place] [address] Jenny Alberto MD [address] [place] [address] Social History Tobacco Use Types [...] Appointment [facility] Ultrasound [address], [address]nd [place] [address] 02/09/2025 10:00 AM EST Office Visit [facility] Medicine Specialties [address], [address] [place] [address] Jenny Alberto MD [address] [place] [address] 05/06/2025 9:00 AM EST Office Visit [facility] Medicine Specialties [address], [address] [place] [address] Myles Dyer MD [address] [place] [address] documented as of this encounter [...] documented as of this encounter Care Teams Germination Testing Manager Relationship Specialty Start Date End Date Audi Howell DO [address] [facility] [address] [place] [address] PCP - General 11/03/24 documented as of this encounter
--- OUTSIDE RECORDS SUMMARY | 2025-01-28 12:57 | XMS_ITS | Encounter Summary ---
Author Organization Healthcare Address [address] [place] [address] Care Team Providers Care Construction Director Name Role Phone Audi Howell Primary Care Provider [phone] Encounter Details Date Type Department Care Team (Late st Contact Info) Description 01/07/2025 Orders Only [facility] Medicine Specialties [address] [place] [address] Provider, [address] [address] Social History Tobacco Use Types [...] 02/09/2025 8:30 AM EST Appointment [facility] Ultrasound [address], [address] [place] [address] 02/09/2025 10:00 AM EST Office Visit [facility] Medicine Specialties [address], [address] [place] [address] Jenny Alberto MD [address] [place] [address] 05/06/2025 9:00 AM EST Office Visit [facility] Medicine Specialties [address], [address] [place] [address] Myles Dyer MD [address] [place] [address] documented as of this encounter Procedures Procedure Name Priority Date/Time Associated Diagnosis Comments CBC WITH AUTO DIFFERENTIAL Routine 01/07/2025 7:52 AM EDT documented in this encounter Results * CBC and Differential (01/07/2025 7:52 AM EDT) Blood Venous blood specimen / [...] documented as of this encounter Care Teams Construction Director Relationship Specialty Start Date End Date Audi Howell, [address] [place] [address] PCP - General 11/03/24 documented as of this encounter
--- OUTSIDE RECORDS SUMMARY | 2025-01-28 12:57 | XMS_ITS | Encounter Summary ---
Author Organization Healthcare Address [address] [place] [address] Care Team Providers Care Global Logistics Analyst Name Role Phone Audi Howell Primary Care Provider Encounter Details Date Type Department Care Team (Late Contact Info) Description 12/18/2024 Orders Only [facility] Medicine Specialties [address] [place] [address] Myles Dyer MD [address] [place] [address] Social History Tobacco Use Types [...] Info) Description 02/09/2025 8:30 AM EST Appointment [facility] Ultrasound [address], [address]nd [place] [address] 02/09/2025 10:00 AM EST Office Visit [facility] Medicine Specialties [address], [address] [place] [address] Jenny Alberto MD [address] [place] [address] 05/06/2025 9:00 AM EST Office Visit [facility] Medicine Specialties [address], [address] [place] [address] Myles Dyer MD [address] [place] [address] documented as of this encounter [...] Blood Venous blood specimen / Unknown Result [facility] Myles Dyer MD LAB BLOOD ORDERABLES Final Res ult * DRVVT (12/18/2024 2:36 PM EDT) Blood Venous blood specimen / Unknown Result [facility] Myles Dyer MD LAB BLOOD ORDERABLES Final Res ult * Beta-2 Glycoprotein Antibodies (12/18/2024 2:36 PM EDT) Blood Venous blood specimen / Unknown Result [facility] Myles Dyer MD LAB BLOOD ORDERABLES Final Res ult * RPR Titer (12/18/2024 2:35 PM EDT) Blood Venous blood specimen / Unknown Result [facility] Myles Dyer MD LAB BLOOD ORDERABLES [...] documented as of this encounter Care Teams Global Logistics Analyst Relationship Specialty Start Date End Date Audi Howell DO [address] [place] [address] PCP - General 11/03/24 documented as of this encounter
== END 2025-01-27 23:59 ==
LOC: LAB.DROPOF 01-28 11:45
PROVIDERS: PCP Internal Medicine; Visit Provider Internal Medicine
DX: Z00.00 Encounter for general adult medical examination without abnormal findings (principal); K74.60 Unspecified cirrhosis of liver; R74.8 Abnormal levels of other serum enzymes; K57.92 Diverticulitis of intestine, part unspecified, without perforation or abscess without bleeding; D69.6 Thrombocytopenia, unspecified; E03.9 Hypothyroidism, unspecified
CPT/HCPCS: 80053; 84439; 84443; 85025

== ENCOUNTER 2025-02-02 07:22 | Outpatient (CLI) | payer MEDICARE, SELFPAY ==
--- OUTSIDE RECORDS SUMMARY | 2025-02-02 07:27 | XMS_ITS | Encounter Summary ---
Author Organization Healthcare Address [address] [place] [address] Care Team Providers Care Conveyor Tender Name Role Phone Audi Howell Primary Care Provider [phone] Encounter Details Date Type Department Care Team (Late st Contact Info) Description 01/12/[address] Medicine Specialties [address] [place] [address] Chary Borrego, RN CH-VASCULAR & INTERVENTIONAL RADIOLOGY None Social History Tobacco Use Types Packs/Day Years [...] Info) Description 02/09/2025 8:30 AM EST Appointment [facility] Ultrasound [address]nd [place] [address] 02/09/2025 10:00 AM EST Office Visit [facility] Medicine Specialties [address], [address] [place] [address] Jenny Alberto MD [address] [place] [address] 05/06/2025 9:00 AM EST Office Visit [facility] Medicine Specialties [address], [address] [place] [address] Myles Dyer MD [address] [place] [address] documented as of this encounter [...] documented as of this encounter Care Teams Conveyor Tender Relationship Specialty Start Date End Date Audi Howell DO [address] [place] [address] PCP - General 11/03/24 documented as of this encounter
--- OUTSIDE RECORDS SUMMARY | 2025-02-02 07:27 | XMS_ITS | Encounter Summary ---
Author Organization Healthcare Address [address] [place] [address] Care Team Providers Care Lime Supervisor Name Role Phone Audi Howell Primary Care Provider Encounter Details Date Type Department Care Team (Late st Contact Info) Description 12/22/2024 Orders Only [facility] Medicine Specialties [address] [place] [address] Provider, [address] [address] Social History Tobacco Use Types [...] Info) Description 02/09/2025 8:30 AM EST Appointment [facility] Ultrasound [address] [place] [address] 02/09/2025 10:00 AM EST Office Visit [facility] Medicine Specialties [address], [address] [place] [address] Jenny Alberto MD [address] [place] [address] 05/06/2025 9:00 AM EST Office Visit [facility] Specialties [address], [address] [place] [address] Myles Dyer MD [address] [facility] [address] [place] [address] documented as of this encounter [...] as of this encounter Care Teams Lime Supervisor Relationship Specialty Start Date End Date Audi Howell, [address] [place] [address] PCP - General 11/03/24 documented as of this encounter
--- OUTSIDE RECORDS SUMMARY | 2025-02-02 07:27 | XMS_ITS | Encounter Summary ---
Author Organization Healthcare Address [address] [place] [address] Care Team Providers Care Pipe Out Worker Name Role Phone Audi Howell Primary Care Provider [phone] Encounter Details Date Type Department Care Team (Late st Contact Info) Description 12/22/2024 Telephone [facility] [address] [place] [address] Lori Levi RN MEDICINE SPECIALTIES CLINIC None Social History Tobacco Use Types Packs/Day [...] EDT Lab orders have been faxed to [facility] F [phone]. * Telephone Encounter - Chary Borrego RN - 12/23/2024 12:13 PM EDT I spoke with the patient and relayed providers message. Patient understood and will get labs done at [facility] in 2 weeks. * Telephone Encounter - Lori Levi RN - 12/22/2024 4:14 PM EDT Images from the original note were not included. Attempted to reach patient, no answer, no VM Please give him Dr. Alberto's message Received: Today Jenny Alberto MD Bishop, Angela M, RN; [facility] Gastroenterology Liver Nursing Staff Pls call patient [...] [facility] Ultrasound [address] [place] [address] 02/09/2025 10:00 AM EST Office Visit [facility] Medicine Specialties [address], [address] [place] [address] Jenny Alberto MD [address] [place] [address] 05/06/2025 9:00 AM EST Office Visit [facility] Medicine Specialties [address], [address] [place] [address] Myles Dyer MD [address] [place] [address] documented as of this encounter [...] documented as of this encounter Care Teams Pipe Out Worker Relationship Specialty Start Date End Date Audi Howell DO [address] [place] [address] PCP - General 11/03/24 documented as of this encounter
--- OUTSIDE RECORDS SUMMARY | 2025-02-02 07:27 | XMS_ITS | Encounter Summary ---
Author Organization Healthcare Address [address] [place] [address] Care Team Providers Care Grades 9 12 Tutor Name Role Phone Audi Howell Primary Care Provider [phone] Encounter Details Date Type Department Care Team (Late Contact Info) Description 12/02/2024 Telephone [facility] Medicine Specialties [address] [place] [address] Chary Borrego RN CH-VASCULAR & INTERVENTIONAL RADIOLOGY None Social [...] Encounters Date Type Department Care Team (Late Contact Info) Description 02/09/2025 8:30 AM EST Appointment [facility] Ultrasound [address] [place] [address] 02/09/2025 10:00 AM EST Office Visit [facility] Medicine Specialties [address], [address] [place] [address] Jenny Alberto MD [address] [place] [address] 05/06/2025 9:00 AM EST Office Visit [facility] Medicine Specialties [address] [place] [address] Myles Dyer MD [address] [place] [address] documented as of this encounter [...] documented as of this encounter Care Teams Grades 9 12 Tutor Relationship Specialty Start Date End Date Audi Howell DO [address] [place] [address] PCP - General 11/03/24 documented as of this encounter
--- OUTSIDE RECORDS SUMMARY | 2025-02-02 07:27 | XMS_ITS | Encounter Summary ---
Author Organization Healthcare Address [address] [place] [address] Care Team Providers Care X Ray Technician Name Role Phone DanteAudi Primary Care Provider [phone] Encounter Details Date Type Department Care Team (Late st Contact Info) Description 12/02/2024 Orders Only [facility] Medicine Specialties [address] [place] [address] Provider, [place] [phone] Social History Tobacco Use Types Packs/Day Years [...] encounter Miscellaneous Notes * Progress Notes - Chray Borrego RN - 12/02/2024 8:33 AM EDT I have called and left a message with [facility] medical records. I have asked them to fax over the CMP lab result. documented in this encounter Plan of Treatment Upcoming Encounters Date Type Department Care Team (Late st Contact Info) Description 02/09/2025 8:30 AM EST Appointment [facility] Ultrasound [address] [place] [address] 02/09/2025 10:00 AM EST Office Visit [facility] Medicine Specialties [address] [place] [address] Jenny Alberto MD [address] [place] [address] 05/06/2025 9:00 AM EST Office Visit [facility] Medicine Specialties [address] [place] [address] Myles Dyer MD [address] [place] [address] documented as of this encounter Procedures Procedure [...] documented as of this encounter Care Teams X Ray Technician Relationship Specialty Start Date End Date Audi Howell DO [address] [place] [address] PCP - General 11/03/24 documented as of this encounter
--- OUTSIDE RECORDS SUMMARY | 2025-02-02 07:27 | XMS_ITS | Encounter Summary ---
Author Organization Healthcare Address [address] [place] [address] Care Team Providers Care Electronic Health Records Specialist Name Role Phone Audi Howell Serafin DO Primary Care Provider [phone] Encounter Details Date Type Department Care Team (Late Contact Info) Description 12/03/2024 Orders Only [facility] Medicine Specialties [address] [place] [address] Jenny Alberto MD [address] [place] [address] Social History Tobacco Use Types [...] Info) Description 02/09/2025 8:30 AM EST Appointment [facility] Ultrasound [address] [place] [address] 02/09/2025 10:00 AM EST Office Visit [facility] Medicine Specialties [address] [place] [address] Jenny Alberto MD [address] [place] [address] 05/06/2025 9:00 AM EST Office Visit [facility] Medicine Specialties [address] [place] [address] Myles Dyer MD [address] [place] [address] documented as of this encounter [...] documented as of this encounter Care Teams Electronic Health Records Specialist Relationship Specialty Start Date End Date Audi Howell DO [address] [place] [address] PCP - General 11/03/24 documented as of this encounter
--- OUTSIDE RECORDS SUMMARY | 2025-02-02 07:28 | XMS_ITS | Encounter Summary ---
Author Organization Healthcare Address [address] [place] [place] [address] Care Team Providers Care Mobile Disc Jockey Name Role Phone Audi Howell Primary Care Provider [phone] Encounter Details Date Type Department Care Team (Late st Contact Info) Description 01/06/2025 Orders Only [facility] Medicine Specialties [address] [place] [address] Provider, [address] [address] Social History Tobacco Use Types [...] EST Appointment [facility] Ultrasound [address] [place] [address] 02/09/2025 10:00 AM EST Office Visit [facility] Medicine Specialties [address], [address] [place] [address] Jenny Alberto MD [address] [place] [address] 05/06/2025 9:00 AM EST Office Visit [facility] Medicine Specialties [address], [address] [place] [address] Myles Dyer MD [address] [facility] [address] [place] [address] documented as of this encounter [...] documented as of this encounter Care Teams Mobile Disc Jockey Relationship Specialty Start Date End Date Audi Howell, DO [address] [place], [place] [address] PCP - General 11/03/24 documented as of this encounter
--- OUTSIDE RECORDS SUMMARY | 2025-02-02 07:28 | XMS_ITS | Encounter Summary ---
Author Organization Healthcare Address [address] [place] [address] Care Team Providers Care Fund Director Name Role Phone Audi Howell Serafin DO Primary Care Provider [phone] Encounter Details Date Type Department Care Team (Late Contact Info) Description 12/08/2024 Results Follow-Up [facility] Medicine Specialties [address] [place] [address] Jenny Alberto MD [address] [place] [address] Social History Tobacco Use Types [...] Info) Description 02/09/2025 8:30 AM EST Appointment [facility] Ultrasound [address] [place] [address] 02/09/2025 10:00 AM EST Office Visit [facility] Medicine Specialties [address] [place] [address] Jenny Alberto MD [address] [place] [address] 05/06/2025 9:00 AM EST Office Visit [facility] Medicine Specialties [address] [place] [address] Myles Dyer MD [address] [place] [address] documented as of this encounter [...] documented as of this encounter Care Teams Fund Director Relationship Specialty Start Date End Date Audi Howell DO [address] [facility] [address] [place] [address] PCP - General 11/03/24 documented as of this encounter
--- OUTSIDE RECORDS SUMMARY | 2025-02-02 07:28 | XMS_ITS | Encounter Summary ---
Author Organization Healthcare Address [address] [place] [address] Care Team Providers Care Sort Operations Supervisor Name Role Phone Audi Howell Serafin DO Primary Care Provider [phone] Encounter Details Date Type Department Care Team (Late Contact Info) Description 01/09/2025 Orders Only [facility] Medicine Specialties [address] [place] [address] Jenny Alberto MD [address] [place] [address] Social History Tobacco Use Types [...] Appointment [facility] Ultrasound [address] [place] [address] 02/09/2025 10:00 AM EST Office Visit [facility] Medicine Specialties [address], [address] [place] [address] Jenny Alberto MD [address] [place] [address] 05/06/2025 9:00 AM EST Office Visit [facility] Medicine Specialties [address] [place] [address] Myles Dyer MD [address] [place] [address] documented as of this encounter [...] documented as of this encounter Care Teams Sort Operations Supervisor Relationship Specialty Start Date End Date Audi Howell DO [address] [place] [address] PCP - General 11/03/24 documented as of this encounter
--- OUTSIDE RECORDS SUMMARY | 2025-02-02 07:28 | XMS_ITS | Encounter Summary ---
Author Organization Healthcare Address [address] [place] [address] Care Team Providers Care Shoe Parts Caser Name Role Phone Field, [employer] Primary Care Provider [phone] Luis Lawson MD Primary Care Provider [phone] Audi Howell DO Primary Care Provider [phone] Encounter Details Date Type Department Care Team (Late st Contact Info) Description 01/23/2024 Lab Requisition [facility] [address] [place] [address] Jenny Alberto MD [address] [place] [address] Elevation of levels of liver [...] Info) Description 02/09/2025 8:30 AM EST Appointment [facility] Ultrasound [address] [place] [address] 02/09/2025 10:00 AM EST Office Visit [facility] Medicine Specialties [address] [place] [address] Jenny Alberto MD [address] [facility] [address] [place] [address] 05/06/2025 9:00 AM EST Office Visit [facility] Medicine Specialties [address], [address] [place] [address] Myles Dyer MD [address] [place] [address] documented as of this encounter Procedures Procedure Name Priority Date/Time Associated Diagnosis Comments SURGICAL PATHOLOGY CONSULT Routine 01/23/2024 1:42 PM EST Elevation of levels of liver transaminase levels documented in this encounter Results * Surgical Pathology Consult (01/23/2024 1:42 PM EST) Case Report Sugical Pathology Consult Case: [id number] Authorizing Provider: Jenny Alberto MD Collected: 01/23/2024 1342 Ordering Location: [facility] Lab Received: 01/23/2024 1342 Pathologist: Nasra Nava MD Specimen: Liver, [id number] 01/24/2024 4:41 PM EST [facility] Final Diagnosis LIVER, NEEDLE CORE BIOPSY ([id number]; 08/15/2023): - CLINICOPATHOLOGIC FINDINGS CONSISTENT WITH AUTOIMMUNE HEPATITIS WITH STAGE 4 FIBROSIS (SEE COMMENT). 01/24/2024 4:41 PM EST [facility] at 1641 EST Comment [...] correlation is recommended. 01/24/2024 4:41 PM EST [facility] Clinical Information R74.01 - Elevation of levels of liver transaminase levels [ICD-10-CM] 01/24/2024 4:41 PM EST [facility] Gross Description A. [id number] Received along with a corresponding pathology report from [facility] are 3 slides labeled outside case: [id number] collected on 08/15/2023. 01/24/2024 4:41 PM EST [facility] Note: A resident was involved in the service. I attest I examined the relevant preparations for the specimens and confirmed the diagnosis or interpretation. 01/24/2024 4:41 PM EST [facility] Tissue Liver structure / Unknown 01/23/2024 1:42 PM EST 01/23/2024 1:42 PM EST us Jenny Alberto MD LAB PATHOLOGY ORDERABLES F inal Result [facility] [address] [place] [address] documented in this encounter Visit Diagnoses Diagnosis [...] documented as of this encounter Care Teams [employer] Caser Relationship Specialty Start Date End Date Vita Reid APRN [address] [place] [address] PCP - General 07/23/20 02/24/24 Luis Lawson MD [address] [place] [address] [place] [id number] PCP - General 02/25/24 11/02/24 Audi Howell DO [address] [place] [address] [address] [place] [id number] PCP - General 11/03/24 documented as of this encounter
--- OUTSIDE RECORDS SUMMARY | 2025-02-02 07:28 | XMS_ITS | Encounter Summary ---
Author Organization Healthcare Address [address] [place] [address] Care Team Providers Care Street Superintendent Name Role Phone Audi Howell DO Primary Care Provider [phone] Encounter Details Date Type Department Care Team ([facility] Contact Info) Description 12/22/2024 Orders Only [facility] Medicine Specialties [address] [place] [address] Jenny Alberto MD [address] [place] [address] Autoimmune hepatitis (CMS/HCC) (Primary Dx) [...] EST Appointment [facility] Ultrasound [address] [place] [address] 02/09/2025 10:00 AM EST Office Visit [facility] Medicine Specialties [address] [place] [address] Jenny Alberto MD [address] [place] [address] 05/06/2025 9:00 AM EST Office Visit [facility] Medicine Specialties [address] [place] [address] Myles Dyer MD [address] [place] [address] documented as of this encounter [...] as of this encounter Care Teams Street Superintendent Relationship Specialty Start Date End Date Audi Howell DO [address] [facility] [address] [place] [address] PCP - General 11/03/24 documented as of this encounter
--- OUTSIDE RECORDS SUMMARY | 2025-02-02 07:28 | XMS_ITS | Encounter Summary ---
Author Organization Healthcare Address [address] [place] [address] Care Team Providers Care Paper Cup Handle Machine Operator Name Role Phone Audi Howell DO Primary Care Provider [phone] Reason for Referral * Medications - Closed Specialty Diagnoses / Procedures Referred By Contac t Referred To Contact Diagnoses Autoimmune hepatitis (CMS/HCC) Jenny Alberto MD [address] [address] Phone: tel: fax: Referral ID Status Reason Start Date Expiration Date Visits Re quested Visits Authorized [id number] Closed 1 1 Reason for Visit * Reason Comments Med Refill Encounter Details Date Type Department Care Team (Late st Contact Info) Description 12/16/2024 Refill [facility] Medicine Specialties [address] [place] [address] Bjorn Cano MD [id number] [place] [address] Autoimmune hepatitis (CMS/HCC) (Primary Dx) [...] 02/09/2025 8:30 AM EST Appointment [facility] Ultrasound [address] [place] [address] 02/09/2025 10:00 AM EST Office Visit [facility] Medicine Specialties [address], [address]nd [place] [address] Jenny Alberto MD [address] [facility] [address] [place] [address] 05/06/2025 9:00 AM EST Office Visit [facility] Medicine Specialties [address] [place] [address] Myles Dyer MD [address] [place] [address] documented as of this encounter Visit Diagnoses [...] documented as of this encounter Care Teams Paper Cup Handle Machine Operator Relationship Specialty Start Date End Date Audi Howell DO [address] [place] [address] PCP - General 11/03/24 documented as of this encounter
--- OUTSIDE RECORDS SUMMARY | 2025-02-02 07:28 | XMS_ITS | Clinical Summary ---
Author Organization [facility] Address [address] [place] [address] Care Team Providers Care Physical Education Department Chair Name Role Phone DanteAudi Primary Care Provider [phone] Allergies No known active allergies Medications amLODIPine [...] Type Department Care Team Description 01/12/2025 Telephone [facility] Medicine Specialties [address], [address] [place] [address] Chary Borrego RN 01/09/2025 Orders Only [facility] Specialties [address], [address] [place] [address] Jenny Alberto MD 01/07/2025 Orders Only [facility] [address], [address] [place] [address] Provider, Historical 01/06/2025 Orders Only [facility]ties [address], [address] [place] [address] Provider, Historical 12/23/2024 Orders Only [facility]ties [address], [address] [place] [address] Provider, Historical 12/22/2024 Telephone [facility] [address], [address] [place] [address] Lori Levi RN 12/22/2024 Orders Only [facility] [address], [address]nd [place] [address] Jenny Alberto MD Autoimmune hepatitis (CMS/HCC) (Primary Dx) 12/22/2024 Orders Only [facility]ties [address], [address] [place] [address] Provider, Historical 12/18/2024 Orders Only [facility] [address], [address] [place] [address] Myles Dyer MD 12/16/2024 Refill [facility]ties [address], [address] [place] [address] Bjorn Cano MD Autoimmune hepatitis (CMS/HCC) (Primary Dx) 12/08/2024 Results Follow-Up [facility] Medicine Specialties [address], [address] [place] [address] Jenny Alberto MD 12/08/2024 Orders Only [facility] [address] [place] [address] Jenny Alberto MD Autoimmune hepatitis (CMS/HCC) (Primary Dx) 12/03/2024 Orders Only [facility] [address], [address] [place] [address] Jenny Alberto MD 12/02/2024 Telephone [facility] Specialties [address], [address] [place] [address] Chary Borrego RN 12/02/2024 Orders Only [facility] Specialties [address], [address] [place] [address] Provider, Historical 11/20/2024 Orders Only [facility]ties [address], [address] [place] [address] Provider, Historical 11/17/2024 Orders Only [facility] Specialties [address], [address] [place] [address] Provider, Historical 11/12/2024 Refill [facility] [address] [place] [address] Jenny Alberto MD 11/05/2024 9:00 AM EDT Office Visit [facility] Specialties [address], [address] [place] [address] Myles Dyer MD Autoimmune hepatitis (CMS/HCC) (Primary Dx); High risk medication use; Systemic lupus erythematosus (SLE) in adult (CMS/HCC); Anti-cardiolipin antibody positive; At risk for osteopenia 11/05/2024 Travel 11/05/2024 Telephone [facility] Specialties [address], [address] [place] [address] Lori Levi RN 11/03/2024 8:40 AM EDT Office Visit [facility] Specialties [address], [address] [place] [address] Jenny Alberto MD Autoimmune hepatitis (CMS/HCC) (Primary [...] Description 02/09/2025 8:30 AM EST Appointment [facility] Ultrasound [address], [address]nd [place] [address] 02/09/2025 10:00 AM EST Office Visit [facility] [address], [address] [place] [address] Jenny Alberto MD [address] [place] [address] 05/06/2025 9:00 AM EST Office Visit [facility] [address], [address] [place] [address] Myles Dyer MD [address] [place] [address] Health Maintenance Due Date Last [...] or (1 - 1-dose 75+ series) 10/11/2023 [id number] Vaccine ( season) 2024 01/03/2024, 12/28/2022, 12/28/2021, [...] Blood Venous blood specimen / Unknown Result [facility] Historical Provider LAB BLOOD ORDERABLES Final R esult * IG Profile (01/05/2025 6:37 AM EDT) Blood Venous blood specimen / Unknown Result [facility] Jenny Alberto MD LAB BLOOD ORDERABLES Final Result * Immunoglobulin G Subclass 4 (SO) (12/23/2024 3:14 PM EDT) Only the most recent of2 resultswithin the time period is included. Blood Venous blood specimen / Unknown Result [facility] LAB REF LAB BLOOD AND FLUID ORD Final Result * Urine Culture (12/18/2024 2:37 PM EDT) Urine Urine specimen obtained by clean catch procedure / Unknown Result [facility] Myles Dyer MD LAB MICROBIOLOGY - GENERAL ORD ERABLES Final Result * Cardiolipin antibody, IgA (12/18/2024 2:36 PM EDT) Blood Venous blood specimen / Unknown Result [facility] Myles Dyer MD LAB BLOOD ORDERABLES Final Res ult * Beta-2 Glycoprotein Antibodies (12/18/2024 2:36 PM EDT) Blood Venous blood specimen / Unknown Result [facility] Myles Dyer MD LAB BLOOD ORDERABLES Final Res ult * Lupus Anticoagulant Profile (12/18/2024 2:36 PM EDT) Blood Venous blood specimen / Unknown Result [facility] Myles Dyer MD LAB BLOOD ORDERABLES Final Res ult * DRVVT (12/18/2024 2:36 PM EDT) Blood Venous blood specimen / Unknown Result [facility] Myles Dyer MD LAB BLOOD ORDERABLES Final Res ult * RPR Titer (12/18/2024 2:35 PM EDT) Blood Venous blood specimen / Unknown Result [facility] Myles Dyer MD LAB BLOOD ORDERABLES Final Res ult * IgG, Plasma (11/17/2024 7:56 AM EDT) Only the most recent of2 resultswithin the time period is included. Blood Venous blood specimen / Unknown Result [facility] Provider LAB BLOOD ORDERABLES Final R esult * Urinalysis Microscopic Examination (11/05/2024 10:04 AM EDT) Urine Urine specimen obtained by clean catch procedure / Unknown Non-blood Collection / Unknown 11/05/2024 10:04 AM EDT 11/05/2024 10:04 AM EDT Result [facility] Myles Dyer MD LAB URINE ORDERABLES Final Res ult [facility] [address] [place] [address] * Protein, Random, Urine with Creatinine (11/05/2024 10:04 AM EDT) Protein, Urine <6 mg/dL 11/05/2024 11:41 AM EDT [facility] Creatinine, Urine 25 mg/dL 11/05/2024 11:41 AM EDT [facility] Protein/Creatin ine Ratio 11/05/2024 11:41 AM EDT [facility] Urine Urine specimen obtained by clean catch procedure / Unknown Non-blood Collection / Unknown 11/05/2024 10:04 AM EDT 11/05/2024 10:04 AM EDT us Myles Dyer MD LAB URINE ORDERABLES Final Res ult [facility] [address] [place] [address] * (ABNORMAL) Urinalysis with reflex microscopic (Culture NOT Included) (11/05/2024 10:04 AM EDT) Color, Urine Yellow LAB URINALYSIS - AUTOMATED METHOD 11/05/2024 11:12 AM EDT [facility] Clarity, Urine Clear LAB URINALYSIS - AUTOMATED METHOD 11/05/2024 11:12 AM EDT [facility] Spec [place], Urine 1.009 1.005 - 1.030 LAB URINALYSIS - AUTOMATED METHOD 11/05/2024 11:12 AM EDT [facility] pH, Urine 7.5 5.0 - 8.0 LAB URINALYSIS - AUTOMATED METHOD 11/05/2024 11:12 AM EDT [facility] Protein, Urine Negative Negative mg/dL LAB URINALYSIS - AUTOMATED METHOD 11/05/2024 11:12 AM EDT [facility] Glucose, Urine Negative Negative mg/dL LAB URINALYSIS - AUTOMATED METHOD 11/05/2024 11:12 AM EDT [facility] Ketones, Urine Negative Negative mg/dL LAB URINALYSIS - AUTOMATED METHOD 11/05/2024 11:12 AM EDT [facility] Blood, Urine Negative Negative LAB URINALYSIS - AUTOMATED METHOD 11/05/2024 11:12 AM EDT [facility] Bilirubin, Urine Negative Negative LAB URINALYSIS - AUTOMATED METHOD 11/05/2024 11:12 AM EDT [facility] Urobilinogen, Urine 0.2 0.2 to 1.0 mg/dL LAB URINALYSIS - AUTOMATED METHOD 11/05/2024 11:12 AM EDT [facility] Leukocytes, Urine Small(A) Negative LAB URINALYSIS - AUTOMATED METHOD 11/05/2024 11:12 AM EDT [facility] Nitrite, Urine Negative Negative LAB URINALYSIS - AUTOMATED METHOD 11/05/2024 11:12 AM EDT [facility] RBC, Urine <1 0 to 3 /HPF LAB URINALYSIS - AUTOMATED METHOD 11/05/2024 11:12 AM EDT [facility] WBC, Urine 6 - 10(A) 0 to 5 /HPF LAB URINALYSIS - AUTOMATED METHOD 11/05/2024 11:12 AM EDT [facility] Squamous Epithelial Cells 0 - 2 0 to 5 /HPF LAB URINALYSIS - AUTOMATED METHOD 11/05/2024 11:12 AM EDT [facility] Hyaline Casts 0 - 2 0 to 5 /LPF LAB URINALYSIS - AUTOMATED METHOD 11/05/2024 11:12 AM EDT [facility] Bacteria, Urine Negative Negative LAB URINALYSIS - AUTOMATED METHOD 11/05/2024 11:12 AM EDT [facility] Urine Urine specimen obtained by clean catch procedure / Unknown Non-blood Collection / Unknown 11/05/2024 10:04 AM EDT 11/05/2024 10:04 AM EDT us Myles Dyer MD LAB URINE ORDERABLES Final Res ult [facility] [address] [place] [address] * Alpha Fetoprotein, Serum (11/03/2024 10:14 AM EDT) Alpha Fetoprotein, Serum <2.3 <10.0 ng/mL 11/03/2024 12:59 PM EDT [facility] Blood Venous blood specimen / Unknown Venipuncture / Unknown 11/03/2024 10:14 AM EDT 11/03/2024 10:14 AM EDT Narrative [facility] - 11/03/2024 12:59 PM EDT Performed by [employer] electrochemiluminescent immunoassay which is traceable to the 1st [facility] IRP WHO Reference standard 72/255. Results obtained with different test methods or kits cannot be used interchangeably. us Bjorn Cano MD LAB BLOOD ORDERABLES Final Resul t [facility] [address] [place] [address] * (ABNORMAL) Comprehensive metabolic panel (11/03/2024 10:14 AM EDT) Glucose, Plasma 127(H) 74 - 99 mg/dL 11/03/2024 11:31 AM EDT [facility] BUN, Plasma 21 8 - 23 mg/dL 11/03/2024 11:31 AM EDT [facility] Creatinine, Plasma 0.92 0.70 - 1.20 mg/dL 11/03/2024 11:31 AM EDT [facility] BUN/Creatinine Ratio 23 11/03/2024 11:31 AM EDT [facility] Sodium, Plasma 141 136 - 145 mmol/L 11/03/2024 11:31 AM EDT [facility] Potassium, Plasma 4.5 3.6 - 4.9 mmol/L 11/03/2024 11:31 AM EDT [facility] Chloride, Plasma 104 97 - 107 mmol/L 11/03/2024 11:31 AM EDT [facility] CO2, Plasma 25 22 - 29 mmol/L 11/03/2024 11:31 AM EDT [facility] Anion Gap 12 6 - 16 mmol/L 11/03/2024 11:31 AM EDT [facility] Total Calcium, Plasma 9.6 8.9 - 10.2 mg/dL 11/03/2024 11:31 AM EDT [facility] Total Protein 7.2 6.3 - 7.9 g/dL 11/03/2024 11:31 AM EDT [facility] Albumin, Plasma 4.4 3.5 - 5.2 g/dL 11/03/2024 11:31 AM EDT [facility] AST, Plasma 93(H) 10 - 50 U/L 11/03/2024 11:31 AM EDT [facility] ALT, Plasma 121(H) 10 - 50 U/L 11/03/2024 11:31 AM EDT [facility] Alkaline Phosphatase, Plasma 76 40 - 115 U/L 11/03/2024 11:31 AM EDT [facility] Total Bilirubin, Plasma 0.6 0.2 - 1.1 mg/dL 11/03/2024 11:31 AM EDT [facility] eGFRcr 86.2 mL/min/1.7 3m*2 11/03/2024 11:31 AM EDT [facility] Comment:Reported eGFRcr in m L/min/1.73m2 is based the CKD-EPI 2020 equation that does not use a race coefficient. Blood Venous blood specimen / Unknown Venipuncture / Unknown 11/03/2024 10:14 AM EDT 11/03/2024 10:14 AM EDT us Bjorn Cano MD LAB BLOOD ORDERABLES Final Resul t [facility] [address] [place] [address] * Hepatitis C antibody (01/21/2024 12:22 PM EST) Hepatitis C Antibody Negative Negative 01/21/2024 3:15 PM EST [facility] Blood Venous blood specimen / Unknown Venipuncture / Unknown 01/21/2024 12:22 PM EST 01/21/2024 12:23 PM EST us Jenny Alberto MD LAB BLOOD ORDERABLES Final Result [facility] [address] [place] [address] from Last 3 Months or Most Recently Relevant to Health Maintenance Insurance Care Teams Physical Education Department Chair Relationship Specialty Start Date End Date Audi Howell DO [address] [place] [address] PCP - General 11/03/24
--- OUTSIDE RECORDS SUMMARY | 2025-02-02 07:28 | XMS_ITS | Encounter Summary ---
Author Organization Healthcare Address [address] [place] [address] Care Team Providers Care Rehabilitation Services Director Name Role Phone Audi Howell Primary Care Provider [phone] Encounter Details Date Type Department Care Team (Late st Contact Info) Description 12/23/2024 Orders Only [facility] Medicine Specialties [address], [address]nd [place] [address] Provider, [address] [address] Social History Tobacco Use Types [...] Appointment [facility] Ultrasound [address], [address]nd [place] [address] 02/09/2025 10:00 AM EST Office Visit [facility] Medicine Specialties [address], [address] [place] [address] Jenny Alberto MD [address] [facility] [address] [place] [address] 05/06/2025 9:00 AM EST Office [facility] Specialties [address], [address] [place] [address] Myles Dyer MD [address] [facility] [address] [place] [address] documented as of this encounter [...] documented as of this encounter Care Teams Rehabilitation Services Director Relationship Specialty Start Date End Date Audi Howell DO [address] [place] [id number] PCP - General 11/03/24 documented as of this encounter
--- OUTSIDE RECORDS SUMMARY | 2025-02-02 07:28 | XMS_ITS | Encounter Summary ---
Author Organization Healthcare Address [address] [place] [place] [address] Care Team Providers Care Hand Mounter Name Role Phone Audi Howell Primary Care Provider [phone] Encounter Details Date Type Department Care Team (Late st Contact Info) Description 01/07/2025 Orders Only [facility] Medicine Specialties [address], [address] [place] [address] Provider, [address] [address] Social History Tobacco Use Types [...] Appointment [facility] Ultrasound [address] [place] [address] 02/09/2025 10:00 AM EST Office Visit [facility] Medicine Specialties [address], [address] [place] [address] Jenny Alberto MD [address] [place] [address] 05/06/2025 9:00 AM EST Office Visit [facility] Medicine Specialties [address], [address] [place] [address] Myles Dyer MD [address] [place] [address] documented as of this encounter [...] documented as of this encounter Care Teams Hand Mounter Relationship Specialty Start Date End Date Audi Howell, [address] [place] [id number] PCP - General 11/03/24 documented as of this encounter
--- OUTSIDE RECORDS SUMMARY | 2025-02-02 07:28 | XMS_ITS | Encounter Summary ---
Author Organization Healthcare Address [address] [place] [address] Care Team Providers Care Fence Manufacture Supervisor Name Role Phone Audi Howell Primary Care Provider [phone] Encounter Details Date Type Department Care Team (Late Contact Info) Description 12/18/2024 Orders Only [facility] Medicine Specialties [address] [place] [address] Myles Dyer MD [address] [place] [address] Social History Tobacco Use Types [...] [facility] Ul[facility]ound [address] [place] [address] 02/09/2025 10:00 AM EST Office Visit [facility] Medicine Specialties [address], [address] [place] [address] Jenny Alberto MD [address] [place] [address] 05/06/2025 9:00 AM EST Office Visit [facility] Medicine Specialties [address], [address] [place] [address] Myles Dyer MD [address] [place] [address] documented as of this encounter [...] Blood Venous blood specimen / Unknown Result [facility] Myles Dyer MD LAB BLOOD ORDERABLES Final Res ult * DRVVT (12/18/2024 2:36 PM EDT) Blood Venous blood specimen / Unknown Result [facility] Myles Dyer MD LAB BLOOD ORDERABLES Final Res ult * Beta-2 Glycoprotein Antibodies (12/18/2024 2:36 PM EDT) Blood Venous blood specimen / Unknown Result [facility] Myles Dyer MD LAB BLOOD ORDERABLES Final Res ult * RPR Titer (12/18/2024 2:35 PM EDT) Blood Venous blood specimen / Unknown Result [facility] Myles Dyer MD LAB BLOOD ORDERABLES [...] documented as of this encounter Care Teams Fence Manufacture Supervisor Relationship Specialty Start Date End Date Audi Howell DO [address] [place] [id number] PCP - General 11/03/24 documented as of this encounter
--- OUTSIDE RECORDS SUMMARY | 2025-02-02 07:28 | XMS_ITS | Encounter Summary ---
Author Organization Healthcare Address [address] [place] [address] Care Team Providers Care Court Administrator Name Role Phone DanteAudi Serafin DO Primary Care Provider [phone] Encounter Details Date Type Department Care Team (Late st Contact Info) Description 12/08/2024 Orders Only [facility] Transplant [facility] [address] [facility] [address] [place] [address] Jenny Alberto MD [address] [facility] [address] [place] [address] Autoimmune hepatitis (CMS/HCC) (Primary Dx) [...] Info) Description 02/09/2025 8:30 AM EST Appointment [facility] Ultrasound [address] [place] [address] 02/09/2025 10:00 AM EST Office Visit [facility] Medicine Specialties [address], [address] [place] [address] Jenny Alberto MD [address] [place] [address] 05/06/2025 9:00 AM EST Office Visit [facility] Medicine Specialties [address], [address] [place] [address] Myles Dyer MD [address] [place] [address] documented as of this encounter [...] documented as of this encounter Care Teams Court Administrator Relationship Specialty Start Date End Date Audi Howell DO [address] [facility] [address] [place] [id number] (work) PCP - General 11/03/24 documented as of this encounter
[2025-02-02 08:12] LABS: Hematocrit 42.9 % (42.0-52.0); Hemoglobin 14.2 g/dL (14.1-18.0); Immature Granulocytes % 0.7 %; Mean Corpuscular HGB Conc 33.1 g/dL (31.8-35.4); Mean Corpuscular Hemoglobin 32.3 pg (27.0-31.2); Mean Corpuscular Volume 97.5 fl (80-94); Nucleated Red Blood Cells % 0 %; Platelet Count 130 K/mm3 (142-424); Red Blood Count 4.40 M/mm3 (4.60-6.20); Red Cell Distribution Width-SD 48.1 fL; White Blood Count 5.7 K/mm3 (4.8-10.8)
[2025-02-02 08:36] LABS: Alanine Aminotransferase 52 U/L (12-78); Albumin Level 4.0 g/dl (3.5-5.0); Albumin/Globulin Ratio 1.5 (1.1-1.8); Alkaline Phosphatase 55 U/L (38-126); Anion Gap 6.9 mEq/L (5-15); Aspartate Amino Transferase 41 U/L (17-59); Bilirubin,Total 0.9 mg/dl (0.2-1.3); Blood Urea Nitrogen 20 mg/dl (9-20); Calcium 9.5 mg/dl (8.4-10.2); Carbon Dioxide 29 mmol/L (22.0-30.0); Chloride 104 mmol/L (98-107); Creatinine,Serum 1.00 mg/dl (0.66-1.25); Estimated Glomerular Filt Rate 73 ml/min (>60); GFR (African American) 88 ML/MIN (>60); Globulin 2.7 g/dL (1.3-3.2); Glucose 94 mg/dl (74-100); Potassium 3.9 mmoL/L (3.5-5.1); Sodium 136 mmol/L (136-145); Total Protein,Serum 6.7 g/dl (6.3-8.2)
[2025-02-03 08:13] LABS: Immunoglobulin G, Qn 974 mg/dL (603-1613)
== END 2025-02-02 23:59 | disposition home or self-care (01) ==
LOC: LAB 07:24
PROVIDERS: PCP Internal Medicine; Visit Provider Internal Medicine Gastroenterology
DX: K75.4 Autoimmune hepatitis (principal)
CPT/HCPCS: 36415; 80053; 82784; 85025